=== PATIENT | male | born 1975 | race Caucasian/White ===

== ENCOUNTER → 2019-07-08 09:20 | Outpatient (CLI) | payer BC, SELFPAY ==
[2019-07-08 08:15] VITALS: BMI 32.3
[2019-07-08 11:08] LABS: Vitamin D,25 Hydroxy 29.1 ng/mL (29.95-100.01)
[2019-07-08 11:12] LABS: ALB/GLOB Ratio 0.9 RATIO (0.9-2.4); AST(SGOT) 20 U/L (15-37); Alanine Aminotransfer ALT/SGPT 36 U/L (16-61); Albumin, Serum 3.8 g/dL (3.2-5.0); Alkaline Phosphatase 117 U/L (45-117); Anion Gap 8 (5-15); BUN 10 mg/dL (7-18); BUN/Creat Ratio 9.7 RATIO (10-20); Calcium,Total 8.8 mg/dL (8.5-10.1); Chloride 101 mmol/L (98-107); Creatinine, Serum 1.03 mg/dL (0.70-1.30); EST Glomerular Filtration Rate 84 mL/min (>60); Est Glom Filt Rate - Afr Amer 102 mL/min (>60); Globulin 4.2 g/dL (2.2-4.2); Glucose 263 mg/dL (74-106); Potassium 3.8 mmol/L (3.5-5.1); Sodium Level 134 mmol/L (136-145); Thyroid Stim Hormone (TSH) 2.86 uIU/mL (0.358-3.74)
[2019-07-08 11:17] LABS: Microalbumin,Random Urine 25.9 mg/L (NO RANGE EST.); Microalbumin:Creatinine Ratio 16.5 mg/g CRE (<30 mg/g CRE)
== END ==
PROVIDERS: Family Provider Internal Medicine; PCP Internal Medicine; Referring Provider Internal Medicine Endocrinology, Diabetes & Metabolism; Visit Provider Internal Medicine Endocrinology, Diabetes & Metabolism
DX: E11.9 Type 2 diabetes mellitus without complications (principal); E55.9 Vitamin D deficiency, unspecified; E78.2 Mixed hyperlipidemia
CPT/HCPCS: 36415; 80053; 82043; 82306; 82570; 84443

== ENCOUNTER → 2020-11-18 15:07 | Outpatient (CLI) | payer BC, SELFPAY ==
[2020-06-11 09:45] VITALS: BMI 30.7
[2020-11-18 15:25] LABS: Absolute Lymphocyte Count 2.17 X10^3/uL (0.83-4.51); Absolute Neutrophil Count 5.3 X10^3/uL (2.0-7.7); Basophil# 0.03 X10^3/uL; Basophil% 0.4 % (0-1); Eosinophil# 0.26 X10^3/uL; Eosinophils% 3.1 % (0-5); Hematocrit 45.7 % (40-54); Hemoglobin 15.7 g/dL (13.0-16.5); Lymphocyte # 2.17 X10^3/ul (0.83-4.51); Lymphocyte % 25.7 % (19-41); Mean Corp Hgb Conc 34.4 g/dL (32-36); Mean Corpuscular Hgb 31.3 pg (27.0-32.0); Mean Corpuscular Volume 91.2 fL (80-94); Mean Platelet Vol. 11.3 fl (6.2-12.0); Monocyte# 0.64 X10^3/uL; Monocyte% 7.6 % (0-10); NRBC Flagged by Analyzer 0 % (0-5); Neutrophil # 5.31 X10^3/uL (2.7-7.7); Neutrophil % 62.8 % (47-70); Platelet Count 239 K/mm3 (150-450); RBC Distribution Width CV 12.6 % (11.6-14.6); Red Blood Count 5.01 M/mm3 (4.6-6.2); White Blood Count 8.4 K/mm3 (4.4-11.0)
[2020-11-18 15:36] LABS: Vitamin D,25 Hydroxy 35.5 ng/mL
[2020-11-18 15:41] LABS: ALB/GLOB Ratio 1.2 RATIO (0.9-2.4); AST(SGOT) 29 U/L (15-37); Alanine Aminotransfer ALT/SGPT 51 U/L (16-61); Alkaline Phosphatase 115 U/L (45-117); Anion Gap 5 (5-15); BUN 8 mg/dL (7-18); BUN/Creat Ratio 9.7 RATIO (10-20); CRP, High Sensitivity Cardiac 3.98 mg/L; Chloride 107 mmol/L (98-107); Cholesterol 143 mg/dL (200); Creatinine, Serum 0.83 mg/dL (0.70-1.30); EST Glomerular Filtration Rate 108 mL/min (>60); Est Glom Filt Rate - Afr Amer 130 mL/min (>60); Globulin 3.4 g/dL (2.2-4.2); Glucose 129 mg/dL (74-106); High Density Lipoprotein 36 mg/dL; Potassium 4.2 mmol/L (3.5-5.1); Protein, Total 7.4 g/dL (6.4-8.2); Sodium Level 139 mmol/L (136-145); Triglycerides 229 mg/dL; Very Low Density Lipoprotein 46 mg/dL (5-40)
== END ==
PROVIDERS: PCP Internal Medicine; Referring Provider Internal Medicine; Visit Provider Internal Medicine
DX: R79.82 Elevated C-reactive protein (CRP) (principal); E10.9 Type 1 diabetes mellitus without complications; E78.2 Mixed hyperlipidemia; E55.9 Vitamin D deficiency, unspecified
CPT/HCPCS: 80053; 80061; 82306; 83036; 85025; 86141

== ENCOUNTER → 2021-03-18 15:50 | Outpatient (CLI) | payer BC, SELFPAY | PROVIDERS: PCP Internal Medicine; Referring Provider Internal Medicine; Visit Provider Internal Medicine | DX: U07.1 COVID-19 (principal) | CPT/HCPCS: 87635; U0005; U0003 ==

== ENCOUNTER 2021-03-19 16:44 | Outpatient (CLI) | payer BC, SELFPAY ==
[2021-03-19 16:50] VITALS: BP 135/64; PULSE 92; RESP 18; TEMP 38.2; O2SAT 96; BMI 29.0
[2021-03-19] MEDS: 0.9% Normal Saline 1,000 ML 999 ML IV (17:25)
[2021-03-19] MEDS: 0.9% Saline Lock 10 ML Syringe IV (17:25)
[2021-03-19 17:56] VITALS: BP 137/65; PULSE 98; RESP 18; TEMP 38.3; O2SAT 95
[2021-03-19] MEDS: Acetaminophen 325 MG Tablet 650 MG PO (18:10)
[2021-03-19 18:21] LABS: Hematocrit 50.2 % (40-54); Hemoglobin 16.9 g/dL (13.0-16.5); Mean Corp Hgb Conc 33.7 g/dL (32-36); Mean Corpuscular Hgb 31.1 pg (27.0-32.0); Mean Corpuscular Volume 92.4 fL (80-94); Mean Platelet Vol. 11.4 fl (6.2-12.0); Platelet Count 158 K/mm3 (150-450); Red Blood Count 5.43 M/mm3 (4.6-6.2); White Blood Count 9.9 K/mm3 (4.4-11.0)
[2021-03-19 18:23] LABS: Color, Urine Yellow (Yellow); Glucose, Dipstick 1000 mg/dl (Normal); Ketone-Dipstick 15 mg/dl (Negative); Leukocyte Esterase-Dipstick Negative /ul (Negative); Nitrite-Dipstick Negative (Negative); Occult Blood-Urine 25 /ul (Negative); Protein-Dipstick 30 mg/dl (Negative); Specific Gravity, Urine 1.015 (1.002-1.030); Urine Bilirubin Dipstick Negative (Negative); Urine Clarity Clear (Clear); Urine Urobilinogen Normal (Normal)
[2021-03-19 18:53] VITALS: BP 144/55; PULSE 99; RESP 18; TEMP 38.5; O2SAT 95
[2021-03-19 19:21] LABS: ALB/GLOB Ratio 0.7 RATIO (0.9-2.4); AST(SGOT) 42 U/L (15-37); Alanine Aminotransfer ALT/SGPT 32 U/L (16-61); Albumin, Serum 3.6 g/dL (3.2-5.0); Alkaline Phosphatase 93 U/L (45-117); Anion Gap 11 (5-15); BUN 12 mg/dL (7-18); BUN/Creat Ratio 9.8 RATIO (10-20); Calcium,Total 9.4 mg/dL (8.5-10.1); Chloride 94 mmol/L (98-107); Creatinine, Serum 1.22 mg/dL (0.70-1.30); EST Glomerular Filtration Rate 69 mL/min (>60); Est Glom Filt Rate - Afr Amer 83 mL/min (>60); Estimated Creatinine Clearance 72.99 ml/min; Globulin 5.3 g/dL (2.2-4.2); Glucose 333 mg/dL (74-106); Potassium 3.6 mmol/L (3.5-5.1); Protein, Total 8.9 g/dL (6.4-8.2); Sodium Level 127 mmol/L (136-145)
== END 2021-03-19 18:57 | disposition home or self-care (01) ==
LOC: ICUOUT 16:45 → MS2 16:45
PROVIDERS: Internal Medicine; PCP Internal Medicine; Referring Provider Nurse Practitioner Acute Care; Visit Provider Nurse Practitioner Acute Care
DX: Z23 Encounter for immunization (principal); U07.1 COVID-19
CPT/HCPCS: 80053; 81002; 85027; J7030; J7050; M0245; A4216; Q0244

== ENCOUNTER → 2023-10-27 | Outpatient (CLI) | payer BC, SELFPAY ==
[2023-10-27 12:39] LABS: Cholesterol 197 mg/dL (200); High Density Lipoprotein 34 mg/dL; Triglycerides 642 mg/dL
== END | disposition home or self-care (01) ==
LOC: BIMLAB 08:53
PROVIDERS: PCP Internal Medicine; Referring Provider Internal Medicine Endocrinology, Diabetes & Metabolism; Visit Provider Internal Medicine Endocrinology, Diabetes & Metabolism
DX: E10.9 Type 1 diabetes mellitus without complications (principal); E78.2 Mixed hyperlipidemia; Z96.41 Presence of insulin pump (external) (internal)
CPT/HCPCS: 36415; 80061

== ENCOUNTER → 2025-05-06 | Outpatient (CLI) | payer BC, SELFPAY ==
--- NOTE | 2025-05-06 08:51 | NEURO_ITS ---
NCS and/or EMG Patient Report
--- NOTE | 2025-05-06 08:51 | NEURO ---
NCS and/or EMG Patient Report Ordering Doctor: Tawanna Pickard DATE OF SERVICE: 05/06/25 Clinical Summary: 49 year old male patient with symptoms of numbness in both hands. Nerve Conduction Studies Summary: Nerve conduction studies were performed in the bilateral upper extremities. The median-D2 SNAP distal latency was prolonged bilaterally. The right median-APB CMAP distal latency was prolonged. The median motor conduction velocity was reduced bilaterally in the forearm segment. Needle Examination Summary: Needle examination of the bilateral upper extremities demonstrated a higher proportion of motor unit action potentials with reduced recruitment, increased amplitude, increased duration, and polyphasia in the bilateral abductor pollicis brevis muscles. Impression: This is an abnormal study. 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 There is no electrodiagnostic evidence of right/left ulnar mononeuropathies or cervical radiculopathies. Multi Select Codes Neurology Neurology Interp Codes: 39181-48 Musc test done w/n test comp (interp) (2) and 80992-08 Nrv cndj test 9-10 studies (interp)
== END | disposition home or self-care (01) ==
LOC: PSN 06:49
PROVIDERS: PCP Internal Medicine; Referring Provider Internal Medicine; Visit Provider Internal Medicine
DX: R20.2 Paresthesia of skin (principal)
CPT/HCPCS: 95886; 95911

== ENCOUNTER 2025-06-04 06:04 | Day surgery (SDC) | payer BC, SELFPAY ==
[2025-06-04] VITALS (7 sets, daily range): BP systolic 128–146; BP diastolic 81–92; PULSE 66–85; RESP 16–18; TEMP 36.6–37; O2SAT 94–98; BMI 31.1
--- OUTSIDE RECORDS SUMMARY | 2025-06-04 06:07 | XMS RPT_ITS | CCD ---
Author Organization [facility] Care Team Providers Care Cushion Maker Hand Name Role Phone Fast, Tawanna A Unavailable [facility] Unavailable Misael Swain Unavailable Manparisk, Eun Unavailable Unavailable Carmela Henning Unavailable Unavailable Linda Dasilva Unavailable Unavailable Unavailable Unavailable SlaMarilee escamilla Unavailable Unavailable Manchak, Eun Unavailable Unavailable Esthela Briceño Unavailable Unavailable Sonia Ludwig Unavailable Kathie Harding Unavailable Unavailable Fast DO, Tawanna A Unavailable [facility] Unavailable Dr. Misael Swain DO Unavailable Manmarni COBRUN, Enu Unavailable Unavailable Unavailable Unavailable Sarah Glass Unavailable Fast DO, Tawanna A Unavailable Neeraj DO, Tawanna A Attending Unavailable Fast DO, Tawanna A Consulting Unavailable Fast DO, Tawanna A Referring Unavailable Medicine, [facility] Pr ovider JOSLYN TURCIOS Referring Unavailable THAD NANCE Attending Unavailable RADHA CAMARILLO Admitting Unavailable BETH PASTRANA Consulting Unavail able RADHA CAMARILLO Attending Unavailable JOSLYN TURCIOS Attending Unavailable JOSLYN TURCIOS Attending Unavailable Dr. Tawanna Pickard Primary Care Provider Dr. Tawanna Pickard Referring Provider Dr. Landen Evangelista Attending Provider Medicine, [facility] Pr ovider QUINTIN SHAY Attending Unavailable Fast DO, Dr. Stacy Primary Care Provider Fast DO, Dr. Stacy Referring Provider [phone] Dr. Landen Evangelista MD Attending Provider [phone] Fast, Tawanna Primary Care Unavailable Landen Evangelista Attending Unavailable Fast, Tawanna Referring Unavailable Fast, Tawanna Primary Care Unavailable Troy Gibbons Attending Unavailable Fast, Tawanna Referring Unavailable Fast, Tawanna Primary Care Unavailable Bora, Trang Attending Unavailable Fast, Tawanna Consulting Unavailable Fast, Tawanna Referring Unavailable Fast, Tawanna Primary Care Unavailable Landen Evangelista Attending Unavailable Fast, Tawanna Referring Unavailable Fast, Tawanna Primary Care Unavailable Fast, Tawanna Attending Unavailable Fast, Tawanna Referring Unavailable Troy Gibbons Attending Unavailable Fast, Tawanna Primary Care Unavailable Troy Gibbons Attending Unavailable Fast, Tawanna Primary Care Unavailable Medications Current Medications Medication Drug Class(es) Dates Sig (Normalized) Sig (Original) Blood-Glucose Sensor (Dexcom G7 Sensor) device (3 sources) Start: 01-13-2025 Blood-Glucose Sensor (Dexcom G7 Sensor) device Active 0 .Route 9 January 13, 2025 12:45pm Type 1 diabetes mellitus Type 1 diabetes mellitus without complications 1 sensor q 10 days Start: 09-19-2024 End: 01-13-2025 Blood-Glucose Sensor (Dexcom G7 Sensor) device Discontinued 0 .Route 9 September 19, 2024 4:29pm January 13, 2025 12:45pm Type 1 diabetes mellitus Type 1 diabetes mellitus without complications 1 sensor q 10 days Start: 02-19-2024 End: 09-19-2024 Blood-Glucose Sensor (Dexcom G7 Sensor) device Discontinued 0 .Route 9 February 19, 2024 12:00am September 19, 2024 4:29pm Type 1 diabetes mellitus Type 1 diabetes mellitus without complications 1 sensor q 10 days cholecalciferol 0.125 mg disintegrating oral tablet (20 sources) Vitamin D Start: 06-14-2019 take 1 tablet by mouth once daily Cholecalciferol (Vitamin D3) 5,000 unit tablet,disintegrating Active 5000 U PO DAILY 0 June 14, 2019 1:00am Start: 08-27-2018 take 1 capsule by [facility] once daily Vitamin D3 5000 UNIT Oral Capsule 1 (one) Capsule qd for 0 days Quantity: 30 {Capsule} Refills: 3 Ordered: 27-Aug-2018 Fast DO, Tawanna A Fast DO, Tawanna A Start : 27-Aug-2018 Active DEXCOM G6 SENSOR anat (6 sources) Start: 01-17-2023 DEXCOM G6 SENS OR anat as directed. 01/17/2023 Active Start: 01-17-2023 DEXCOM G6 SENS OR anat as directed. 0 01/17/2023 Active Comment on above: as directed. DEXCOM G6 TRANSMITTER anat (6 sources) Start: 02-09-2023 DEXCOM G6 TRANSMITTER anat as directed. 02/09/2023 Active Start: 02-09-2023 DEXCOM G6 RENE SMITTER anat as directed. 0 02/09/2023 Active Comment on above: as directed. 3 ml insulin lispro 200 unt/ml pen injector (20 sources) Insulin Analog Start: 08-30-2024 Insulin Lispro (Humalog Kwikpen Insulin) 200 unit/mL (3 mL) insulin pen Active 200 U SC daily 30 August 30, 2024 1:00am Start: 11-20-2012 End: 10-14-2013 HUMALOG KWIKPEN, 100UNIT/ML (Subcutaneous Solution) 1 Solution uad for 0 days Quantity: 1 {Solution} Refills: 0 Ordered: 14-Oct-2013 Eun Arrington CMA Start : 20-Nov-2012 End : 14-Oct-2013 Inactive Start: 11-20-2012 End: 10-14-2013 HUMALOG KWIKPEN, 100UNIT/ML (Subcutaneous Solution) 1 Solution uad for 0 days Quantity: 1 {Solution} Refills: 0 Ordered: 14-Oct-2013 Eun Arrington Start : 20-Nov-2012 End : 14-Oct-2013 Inactive Insulin Process Development Manager Cart,Aut,G6/7,Cntr (Omnipod 5 G6-G7 Intro Kt(Gen5)) cartridge (1 source) Start: 11-19-2024 Insulin Process Development Manager Cart,Aut,G6/7,Cntr (Omnipod 5 G6-G7 Intro Kt(Gen5)) cartridge Active 0 .Route 1 November 19, 2024 12:00am As directed Insulin Pump Cart,Auto,Bt,G6/7 (Omnipod 5 G6-G7 Pods (Gen 5)) cartridge (1 source) Start: 12-19-2024 Insulin Pump Cart,Auto,Bt,G6/7 (Omnipod 5 G6-G7 Pods (Gen 5)) cartridge Active 0 .Route 30 December 19, 2024 12:00am change every 3 days levETIRAcetam 500 mg oral tablet (5 sources) Start: 02-20-2023 End: 03-06-2023 take 1 tablet by mouth twice daily levETIRAcetam (KEPPRA) 500 mg tablet Take 1 tablet by mouth twice daily for 14 days. 28 tablet 02/20/2023 Active Comment on above: Take 1 tablet by kg th twice daily for 14 days. ondansetron 4 mg oral tablet (6 sources) Serotonin-3 Receptor Antagonist Start: 02-20-2023 take 1 tablet by mouth every eight hours as needed ondansetron (ZOFRAN) 4 mg tablet Take 1 tablet by mouth every 8 hours as needed for nausea/vomiting. 15 tablet 02/20/2023 Active Comment on above: Take 1 tablet by kg th every 8 hours as needed for nausea/vomiting. rosuvastatin calcium 20 mg oral tablet (20 sources) HMG-CoA Reductase Inhibitor Start: 04-19-2024 take 2 tablets by mouth once daily Rosuvastatin 20 mg tablet Active 40 mg PO DAILY April 19, 2024 8:06am Start: 06-14-2019 End: 04-19-2024 take 1 tablet by mouth once daily Rosuvastatin 20 mg tablet Discontinued 20 mg PO DAILY 90 3 April 21, 2023 8:24am April 19, 2024 8:06am Start: 05-18-2012 End: 10-17-2012 take 1 tablet by mouth once daily CRESTOR, 20MG (Oral Tablet) 1 Tablet daily for 0 days Quantity: 30 {Tablet} Refills: 3 Ordered: 17-Oct-2012 Ava Tubbs LPN Start : 18-May-2012 End : 17-Oct-2012 Inactive Tirzepatide (Mounjaro) 5 mg/ 0.5 mL pen injector (1 source) Start: 08-30-2024 Tirzepatide (M ounjaro) 5 mg/0.5 mL pen injector Active 5 mg SC EVERY WEEK August 30, 2024 1:00am ubidecarenone 10 mg oral cap dana (2 sources) Start: 11-19-2020 Coenzyme Q10 ( Co Q-10) 10 mg capsule Active 10 mg PO ONCE November 19, 2020 12:00am Completed/Discontinued Medications Medication Drug Class(es) Dates Sig (Normalized) Sig (Original) acetaminophen 300 mg / butalbital 50 mg / caffeine 40 mg oral capsule (5 sources) Barbiturate, Central Nervous System Stimulant, Methylxanthine Start: 02-24-2023 take 1 capsule by mouth every four hours as needed Fioricet 50-300-40 mg oral capsule 1 (one) capsule q4 hours prn for 0 days Quantity: 30 {Capsule} Refills: 0 Ordered: 24-Feb-2023 Fast DO, Tawanna A Fast DO, Tawanna A Start : 24-Feb-2023 Active Comments: ooars reviewed Start: 02-20-2023 End: 02-25-2023 take 1 tablet by mouth every six hours as needed acetaminophen 325 mg-caffeine 40 mg-butalbital 50 mg (FIORICET) per tablet Take 1 tablet by mouth every 6 hours as needed for headache for up to 5 days. 20 tablet 0 02/20/2023 02/25/2023 Active Comment on above: Take 1 tablet by kg th every 6 hours as needed for headache for up to 5 days. juan reviewed amoxicillin 875 mg / clavulanate 125 mg oral tablet (10 sources) Penicillin-class Antibacterial Start: 2 End: 2 take 1 tablet by mouth twice daily Amoxicillin-Pot Clavulanate 875-125 MG Oral Tablet 1 (one) Tablet bid for 0 days Quantity: 14 {Tablet} Refills: 0 Ordered: 14-Jan-2022 Eun Arrington CMA Start : 10-Sep-2021 End : 14-Jan-2022 Inactive atorvastatin 40 mg oral tablet (20 sources) HMG-CoA Reductase Inhibitor Start: 9 End: 0 take 1 tablet by mouth once daily Lipitor 40 MG Oral Tablet 1 Tablet daily for 0 days Quantity: 30 {Tablet} Refills: 6 Ordered: 7-Feb-2020 Esthela Briceño RN Start : 13-May-2019 End : 16-Aug-2019 Inactive Start: 09-10-2013 take 1 tablet by kg th once daily LIPITOR, 40MG (Oral Tablet) 1 Tablet daily for 0 days Quantity: 30 {Tablet} Refills: 6 Ordered: 10-Sep-2013 Elvia Cleary CNP Start : 10-Sep-2013 Active Start: 05-18-2012 End: 05-18-2012 take 1 tablet by mouth once daily LIPITOR, 20MG (Oral Tablet) 1 Tablet daily for 0 days Quantity: 90 {Tablet} Refills: 0 Ordered: 18-May-2012 Elvia Cleary Start : 18-May-2012 End : 18-May-2012 Inactive azithromycin 250 mg oral tablet (20 sources) Macrolide Antimicrobial Start: 03-18-2021 End: 05-17-2021 Azithromycin 250 MG Oral Tablet uad Tablet 2 today then 1 a day until gone for 0 days Quantity: 8 {Tablet} Refills: 0 Ordered: 17-May-2021 Fast DO, Tawanna A Fast DO, Tawanna A Start : 18-Mar-2021 End : 17-May-2021 Inactive Start: 08-15-2011 End: 09-13-2011 ZITHROMAX Z-STEPH, 250MG (Oral Tablet) 1 Tablet uad for 0 days Quantity: 1 {Package(s)} Refills: 0 Ordered: 13-Sep-2011 Ava Tubbs LPN Start : 15-Aug-2011 End : 13-Sep-2011 Inactive betamethasone 3 mg/ml / betamethasone acetate 3 mg/ml injectable suspension (2 sources) Corticosteroid Start: 12-06-2024 End: 12-06-2024 betamethasone acetate-betamethasone sodium phosphate 3 mg injection (CELESTONE) Start: 12-06-2024 End: 12-06-2024 3 mg, Injection - FOR ORTHO USE ONLY, ONCE, 1 dose, Starting on Mon12/06/24 at 0952, Until Mon12/06/24 at 0952 Blood-Glucose Sensor (Dexcom G6 Sensor) device (15 sources) Start: 02-09-2024 End: 02-19-2024 Blood-Glucose Sensor (Dexcom G6 Sensor) device Discontinued 0 .ROUTE .MEDSUPPLY 9 February 09, 2024 2:24pm February 19, 2024 9:49am Type 1 diabetes mellitus Type 1 diabetes mellitus without complications As directed Start: 07-19-2023 End: 02-09-2024 Blood-Glucose Sensor (Dexcom G6 Sensor) device Discontinued 0 .ROUTE .MEDSUPPLY 9 July 19, 2023 9:45am February 09, 2024 2:25pm Type 1 diabetes mellitus Type 1 diabetes mellitus without complications As directed Start: 07-19-2023 Blood-Glucose Sensor (Dexcom G6 Sensor) device Active 0 .ROUTE .MEDSUPPLY July 19, 2023 9:45am As directed Start: 01-16-2023 End: 07-19-2023 Blood-Glucose Sensor (Dexcom G6 Sensor) device Discontinued 0 .ROUTE .MEDSUPPLY 9 January 16, 2023 4:07pm July 19, 2023 9:45am Type 1 diabetes mellitus Type 1 diabetes mellitus without complications As directed Start: 01-16-2023 End: 07-19-2023 Blood-Glucose Sensor (Dexcom G6 Sensor) device Discontinued 0 .ROUTE .MEDSUPPLY January 16, 2023 4:07pm July 19, 2023 9:45am As directed Start: 06-24-2022 End: 01-16-2023 Blood-Glucose Sensor (Dexcom G6 Sensor) device Discontinued 0 .ROUTE .MEDSUPPLY 9 June 24, 2022 10:07am January 16, 2023 4:07pm Type 1 diabetes mellitus Type 1 diabetes mellitus without complications As directed Start: 06-24-2022 End: 01-16-2023 Blood-Glucose Sensor (Dexcom G6 Sensor) device Discontinued 0 .ROUTE .MEDSUPPLY June 24, 2022 10:07am January 16, 2023 4:07pm As directed Start: 12-24-2021 End: 06-24-2022 Blood-Glucose Sensor (Dexcom G6 Sensor) device Discontinued 0 .ROUTE .MEDSUPPLY 9 December 24, 2021 1:10pm June 24, 2022 10:07am Type 1 diabetes mellitus Type 1 diabetes mellitus without complications As directed Start: 12-24-2021 End: 06-24-2022 Blood-Glucose Sensor (Dexcom G6 Sensor) device Discontinued 0 .ROUTE .MEDSUPPLY 9 December 24, 2021 1:10pm June 24, 2022 10:07am As directed Start: 11-17-2021 End: 12-24-2021 Blood-Glucose Sensor (Dexcom G6 Sensor) device Discontinued 0 .ROUTE .MEDSUPPLY 3 3 November 17, 2021 1:04pm December 24, 2021 1:10pm Type 1 diabetes mellitus Type 1 diabetes mellitus without complications As directed Start: 11-17-2021 End: 12-24-2021 Blood-Glucose Sensor (Dexcom G6 Sensor) device Discontinued 0 .ROUTE .MEDSUPPLY 3 November 17, 2021 1:04pm December 24, 2021 1:10pm As directed Start: 01-04-2021 End: 11-17-2021 Blood-Glucose Sensor (Dexcom G6 Sensor) device Discontinued 0 .ROUTE .MEDSUPPLY 9 January 04, 2021 10:06am November 17, 2021 1:04pm As directed Start: 01-04-2021 End: 11-17-2021 Blood-Glucose Sensor (Dexcom G6 Sensor) device Discontinued 0 .ROUTE .MEDSUPPLY 9 January 04, 2021 10:06am November 17, 2021 1:04pm As directed Start: 02-06-2020 End: 01-04-2021 Blood-Glucose Sensor (Dexcom G6 Sensor) device Discontinued 0 .ROUTE .MEDSUPPLY 9 3 February 06, 2020 12:00am January 04, 2021 10:06am As directed Start: 02-06-2020 End: 01-04-2021 Blood-Glucose Sensor (Dexcom G6 Sensor) device Discontinued 0 .ROUTE .MEDSUPPLY 9 February 06, 2020 12:00am January 04, 2021 10:06am As directed Blood-Glucose Transmitter (Dexcom G6 Transmitter) device (9 sources) Start: 02-09-2024 End: 08-30-2024 Blood-Glucose Transmitter (Dexcom G6 Transmitter) device Discontinued 0 .ROUTE .MEDSUPPLY 1 February 09, 2024 2:24pm August 30, 2024 10:35am As directed Start: 02-08-2023 End: 02-09-2024 Blood-Glucose Transmitter (D excom G6 Transmitter) device Discontinued 0 .ROUTE .MEDSUPPLY 1 February 08, 2023 4:37pm February 09, 2024 2:25pm As directed Start: 02-08-2023 Blood-Glucose Transmitter (Dexcom G6 Transmitter) device Active 0 .ROUTE .MEDSUPPLY 1 February 08, 2023 4:37pm As directed Start: 01-11-2022 End: 02-08-2023 Blood-Glucose Transmitter (D excom G6 Transmitter) device Discontinued 0 .ROUTE .MEDSUPPLY 1 3 January 11, 2022 9:14am February 08, 2023 4:37pm As directed Start: 01-11-2022 End: 02-08-2023 Blood-Glucose Transmitter (D excom G6 Transmitter) device Discontinued 0 .ROUTE .MEDSUPPLY 1 January 11, 2022 9:14am February 08, 2023 4:37pm As directed Start: 01-04-2021 End: 01-11-2022 Blood-Glucose Transmitter (D excom G6 Transmitter) device Discontinued 0 .ROUTE .MEDSUPPLY 1 3 January 04, 2021 10:06am January 11, 2022 9:14am As directed Start: 01-04-2021 End: 01-11-2022 Blood-Glucose Transmitter (D excom G6 Transmitter) device Discontinued 0 .ROUTE .MEDSUPPLY 1 January 04, 2021 10:06am January 11, 2022 9:14am As directed Start: 02-06-2020 End: 01-04-2021 Blood-Glucose Transmitter (D excom G6 Transmitter) device Discontinued 0 .ROUTE .MEDSUPPLY 1 3 February 06, 2020 12:00am January 04, 2021 10:06am As directed Start: 02-06-2020 End: 01-04-2021 Blood-Glucose Transmitter (D excom G6 Transmitter) device Discontinued 0 .ROUTE .MEDSUPPLY 1 February 06, 2020 12:00am January 04, 2021 10:06am As directed desoximetasone 2.5 mg/ml topical cream (20 sources) Corticosteroid Start: 08-29-2011 End: 09-13-2011 TOPICORT, 0.25% (External Cream) 1 Cream bid for 0 days Quantity: 1 {Cream} Refills: 0 Ordered: 13-Sep-2011 Ava Tubbs LPN Start : 29-Aug-2011 End : 13-Sep-2011 Inactive dexamethasone 6 mg oral tablet (12 sources) Corticosteroid Start: 03-23-2021 End: 05-17-2021 take 1 tablet by mouth once daily Dexamethasone 6 MG Oral Tablet 1 (one) Tablet qd for 0 days Quantity: 10 {Tablet} Refills: 0 Ordered: 17-May-2021 Fast DO, Tawanna A Fast DO, Tawanna A Start : 23-Mar-2021 End : 17-May-2021 Inactive ergocalciferol 1.25 mg oral capsule (20 sources) Provitamin D2 Compound Start: 11-27-2012 End: 08-27-2018 take 1 capsule by mouth every week Ergocalciferol 35623 UNIT Oral Capsule 1 Capsule q week for 0 days Quantity: 12 {Capsule} Refills: 1 Ordered: 27-Aug-2018 Fast DO, Tawanna A Fast DO, Tawanna A Start : 27-Nov-2012 End : 27-Aug-2018 Inactive fenofibrate 145 mg oral tablet (20 sources) Peroxisome Proliferator Receptor alpha Agonist Start: 08-27-2018 End: 08-27-2018 take 1 tablet by mouth once daily Fenofibrate 145 MG Oral Tablet 1 (one) Tablet qd for 0 days Quantity: 30 {Tablet} Refills: 3 Ordered: 27-Aug-2018 Fast DO, Tawanna A Fast DO, Tawanna A Start : 27-Aug-2018 End : 27-Aug-2018 Discontinued Start: 11-27-2012 End: 10-14-2013 take 1 capsule by mouth once daily at bedtime TRILIPIX, 135MG (Oral Capsule Delayed Release) [address] qd at hs for 0 days Quantity: 30 {Capsule_DR} Refills: 3 Ordered: 14-Oct-2013 Eun Arrington CMA Start : 27-Nov-2012 End : 14-Oct-2013 Inactive Start: 06-20-2012 End: 10-17-2012 take 1 tablet by mouth once daily TRICOR, 145MG (Oral Tablet) 1 Tablet daily for 0 days Quantity: 30 {Tablet} Refills: 11 Ordered: 17-Oct-2012 Ava Tubbs LPN Start : 20-Jun-2012 End : 17-Oct-2012 Inactive Start: 08-23-2011 End: 09-13-2011 take 1 tablet by mouth once daily FENOFIBRATE, 160MG (Oral Tablet) 1 Tablet daily for 0 days Quantity: 30 {Tablet} Refills: 3 Ordered: 13-Sep-2011 Ava Tubbs LPN Start : 23-Aug-2011 End : 13-Sep-2011 Inactive insulin detemir 100 unt/ml injectable solution (20 sources) Insulin Analog Start: 01-04-2013 End: 08-13-2018 LEVEMIR FLEXPEN, 100UNIT/ML (Subcutaneous Solution) 10 -15 Solution q am for 0 days Quantity: 30 {Solution} Refills: 0 Ordered: 04-Jan-2013 Celestinomarni COBURN Eun Start : 04-Jan-2013 End : 13-Aug-2018 Discontinued Comments: This order discontinued per [facility]. Start: 01-04-2013 End: 08-13-2018 LEVEMIR FLEXPEN, 100UNIT/ML (Subcutaneous Solution) 10 -15 Solution q am for 0 days Quantity: 30 {Solution} Refills: 0 Ordered: 04-Jan-2013 Eun Arrington Start : 04-Jan-2013 End : 13-Aug-2018 Discontinued Comments: This order discontinued per [facility]. Comment on above: This order discontin ued per [facility]. Insulin Pump Cart,Auto,Bt-Cntr (Omnipod 5 G6 Intro Kit (Gen 5)) cartridge (2 sources) Start: 12-12-2022 End: 04-21-2023 Insulin Pump Cart,Auto,Bt-Cntr (Omnipod 5 G6 Intro Kit (Gen 5)) cartridge Discontinued 0 .Route 1 0 December 12, 2022 12:00am April 21, 2023 8:24am As directed Start: 12-12-2022 End: 04-21-2023 Insulin Pump Cart,Auto,Bt-Cn tr (Omnipod 5 G6 Intro Kit (Gen 5)) cartridge Discontinued 0 .Route 1 December 12, 2022 12:00am April 21, 2023 8:24am As directed Insulin Pump Cart,Automated, Bt (Omnipod 5 G6 Pods (Gen 5)) cartridge (2 sources) Start: 12-12-2022 End: 10-27-2023 Insulin Pump Cart,Automated, Bt (Omnipod 5 G6 Pods (Gen 5)) cartridge Discontinued 0 .Route 15 6 December 12, 2022 12:00am October 27, 2023 8:22am change every 2 days Start: 12-12-2022 End: 10-27-2023 Insulin Pump Cart,Automated, Bt (Omnipod 5 G6 Pods (Gen 5)) cartridge Discontinued 0 .Route 15 December 12, 2022 12:00am October 27, 2023 8:22am change every 2 days insulin aspart, human 100 unt/ml injectable solution (20 sources) Insulin Analog Start: 02-19-2025 End: 02-28-2025 Insulin Aspart U-100 (Novolog U-100 Insulin Aspart) 100 unit/mL solution Discontinued 0 SC .continuous 50 6 February 19, 2025 10:16am February 28, 2025 8:21am uses up to 160U qd via pump subcut .continuous; Start: 04-19-2024 End: 02-19-2025 Insulin Aspart U-100 (Novolo g U-100 Insulin Aspart) 100 unit/mL solution Discontinued 0 SC .continuous 50 6 May 06, 2024 9:26am February 19, 2025 10:16am uses up to 160U qd via pump subcut .continuous; Start: 10-27-2023 End: 04-19-2024 Insulin Aspart U-100 (Novolo g U-100 Insulin Aspart) 100 unit/mL solution Discontinued 0 SC .continuous 120 3 October 27, 2023 8:23am April 19, 2024 8:52am uses up to 130U qd via pump subcut .continuous; Start: 04-21-2023 End: 10-27-2023 Insulin Aspart U-100 (Novolo g U-100 Insulin Aspart) 100 unit/mL solution Discontinued 0 SC .continuous 120 3 June 29, 2023 10:45am October 27, 2023 8:23am uses up to 130U qd via pump subcut .continuous; Start: 02-13-2023 inject 130 [IU] by s ubcutaneous injection once daily NOVOLOG U-100 INSULIN ASPART 100 unit/mL USE UP TO 130 UNITS DAILY SUBCUTANEOUSLY VIA INSULIN PUMP 02/13/2023 Active Start: 11-19-2021 End: 04-21-2023 Insulin Aspart U-100 (Novolo g U-100 Insulin Aspart) 100 unit/mL solution Discontinued 0 SC .continuous 120 3 June 24, 2022 10:06am April 21, 2023 8:24am uses up to 130U qd via pump subcut .continuous; Start: 01-15-2021 End: 11-19-2021 Insulin Aspart U-100 (Novolo g U-100 Insulin Aspart) 100 unit/mL solution Discontinued 0 SC .continuous 120 3 January 15, 2021 8:43am November 19, 2021 9:33am uses up to 130U qd via pump subcut .continuous; Start: 01-01-2020 End: 01-15-2021 Insulin Aspart U-100 (Novolo g U-100 Insulin Aspart) 100 unit/mL solution Discontinued 0 SC .continuous 120 3 May 19, 2020 4:17pm January 15, 2021 8:44am uses up to 130U qd via pump subcut .continuous; Start: 08-16-2019 inject 1 [IU] by sub cutaneous injection three times daily before mealtime NovoLOG 100 UNIT/ML Subcutaneous Solution 1 (one) Unit SSI tid ac - 100 units daily for 0 days Quantity: 1 {Vial} Refills: 3 Ordered: 16-Aug-2019 Fast DO, Tawanna A Fast DO, Tawanna A Start : 16-Aug-2019 Active Comments: SSI per Landen Evangelista Start: 07-11-2019 End: 01-01-2020 Insulin Aspart U-100 (Novolo g U-100 Insulin Aspart) 100 unit/mL solution Discontinued 130 U SC .continuous 90 1 October 07, 2019 9:05am January 01, 2020 8:13am Start: 08-27-2018 NovoLOG 100 UN IT/ML Subcutaneous Solution 1 (one) Unit uad for 0 days Quantity: 1 {Vial} Refills: 3 Ordered: 27-Aug-2018 Fast DO, Tawanna A Fast DO, Tawanna A Start : 27-Aug-2018 Active Start: 10-14-2013 End: 08-13-2018 NOVOLOG FLEXPEN, 100UNIT/ML (Subcutaneous Solution) 1 (one) Solution uad for 0 days Quantity: 1 {Package} Refills: 0 Ordered: 13-Aug-2018 Elvia Cleary Start : 14-Oct-2013 End : 13-Aug-2018 Discontinued Comments: This order discontinued per [facility]. Start: 10-14-2013 End: 08-13-2018 NOVOLOG FLEXPEN, 100UNIT/ML (Subcutaneous Solution) 1 (one) Solution uad for 0 days Quantity: 1 {Package} Refills: 0 Ordered: 13-Aug-2018 Elvia Cleary Start : 14-Oct-2013 End : 13-Aug-2018 Discontinued Comments: This order discontinued per [facility]. Comment on above: This order discontin ued per [facility]. SSI per Landen Evangelista USE UP TO 130 UNITS DAILY SUBCUTANEOUSLY VIA INSULIN PUMP levoFLOXacin 500 mg oral tablet (20 sources) Quinolone Antimicrobial Start: 7 End: 9 take 1 tablet by mouth once daily Levaquin 500 MG Oral Tablet 1 (one) Tablet daily for 0 days Quantity: 7 {Tablet} Refills: 0 Ordered: 27-Aug-2018 Eun Arrington CMA Start : 14-Feb-2017 End : 27-Aug-2018 Inactive 10 ml lidocaine hydrochloride 10 mg/ml injection (2 sources) Antiarrhythmic, Amide Local Anesthetic Start: 5 End: lidocaine (PF) 10 mg/mL (1 %) 0.5 mL injection (XYLOCAINE) Start: 12-06-2024 End: 12-06-2024 0.5 mL, Injection - FOR ORTH O USE ONLY, ONCE, 1 dose, Starting on Mon12/06/24 at 0952, Until Mon12/06/24 at 0952 linagliptin 5 mg oral tablet (20 sources) Dipeptidyl Peptidase 4 Inhibitor Start: 11-20-2012 End: 10-14-2013 take 1 tablet by mouth once daily TRADJENTA, 5MG (Oral Tablet) 1 Tablet qd int he morning for 0 days Quantity: 30 {Tablet} Refills: 3 Ordered: 14-Oct-2013 Eun Arrington CMA Start : 20-Nov-2012 End : 14-Oct-2013 Inactive lisinopril 2.5 mg oral tablet (20 sources) Angiotensin Converting Enzyme Inhibitor Start: 03-26-2019 End: 05-13-2019 take 1 tablet by mouth once daily Lisinopril 2.5 MG Oral Tablet 1 (one) Tablet qd for 0 days Quantity: 30 {Tablet} Refills: 1 Ordered: 13-May-2019 Marilee Hairston LPN Start : 26-Mar-2019 End : 13-May-2019 Inactive Start: 12-07-2018 take 1 tablet by kg th once daily Lisinopril 2.5 MG Oral Tablet 1 (one) Tablet qd for 0 days Quantity: 30 {Tablet} Refills: 3 Ordered: 07-Dec-2018 Fast DO, Tawanna A Fast DO, Tawanna A Start : 07-Dec-2018 Active metFORMIN hydrochloride 500 mg oral tablet (20 sources) Biguanide Start: 12-07-2018 End: 05-13-2019 take 1 tablet by mouth once daily metFORMIN HCl 500 MG Oral Tablet 1 (one) Tablet qd for 0 days Quantity: 30 {Tablet} Refills: 3 Ordered: 13-May-2019 Marilee Hairston LPN Start : 07-Dec-2018 End : 13-May-2019 Inactive Start: 01-25-2013 End: 10-14-2013 METFORMIN HCL ER, 500MG (Ora l Tablet Extended Release 24 Hour) 2 (two) Tablet ER 24HR bid for 0 days Quantity: 120 {Tablet_ER_24HR} Refills: 3 Ordered: 14-Oct-2013 Eun Arrington CMA Start : 25-Jan-2013 End : 14-Oct-2013 Inactive 24 hr metFORMIN hydrochloride 1000 mg / sAXagliptin 2.5 mg extended release oral tablet (20 sources) Biguanide, Dipeptidyl Peptidase 4 Inhibitor Start: 10-17-2012 End: 11-10-2012 take 1 tablet by mouth every twenty-four hours at dinner KOMBIGLYZE XR, 2.5-1000MG (Oral Tablet Extended Release 24 Hour) 1 Tablet ER 24HR with evening meal for 24 days Refills: 0 Ordered: 20-Nov-2012 Shelleyrory Elvia Start : 17-Oct-2012 End : 10-Nov-2012 Inactive predniSONE 10 mg oral tablet (20 sources) Start: 10-15-2019 End: 12-09-2019 predniSONE 10 MG Oral Tablet 3 (three) Tablet daily for 10 days for 0 days Quantity: 30 {Tablet} Refills: 0 Ordered: 09-Dec-2019 Esthela Briceño RN Start : 15-Oct-2019 End : 09-Dec-2019 Inactive Comments: take with food in am Start: 02-14-2017 End: 08-27-2018 take 3 tablets by mouth once daily, then take 2 tablets by mouth, then take 1 tablet by mouth at mealtime PredniSONE 10 MG Oral Tablet 1 (one) Tablet daily, TAD for 0 days Quantity: 18 {Tablet} Refills: 0 Ordered: 27-Aug-2018 Eun Arrington CMA Start : 14-Feb-2017 End : 27-Aug-2018 Inactive Comments: 3pills [id number], 2 pills po x3days, 1 po x3days with food in the amverbally called in-[facility] 02/13/17 Comment on above: 3pills [id number], 2 p ills po x3days, 1 po x3days with food in the amverbally called in-[facility] 02/13/17 take with food in am promethazine hydrochloride 25 mg oral tablet (12 sources) Phenothiazine Start: 03-18-20 End: 05-17-20 take 1 tablet by mouth every six hours as needed Promethazine HCl 25 MG Oral Tablet 1 (one) Tablet po q 6 hours prn for 0 days Quantity: 20 {Tablet} Refills: 0 Ordered: 17-May-2021 Fast DO, Tawanna A Fast DO, Tawanna A Start : 18-Mar-2021 End : 17-May-2021 Inactive Rybelsus 14 MG Oral Tablet (8 sources) Start: 04-07-20 20 take 1 tablet by mouth once daily Rybelsus 14 MG Oral Tablet 1 (one) Tablet qd for 30 days Quantity: 30 {Tablet} Refills: 3 Ordered: 07-Apr-2020 Fast DO, Tawanna A Fast DO, Tawanna A Start : 07-Apr-2020 Active semaglutide 3 mg oral tablet (20 sources) Start: 07-13-19 End: 10-29-19 23 take 1 tablet by mouth once daily Rybelsus 3 mg oral tablet 1 (one) tablet qd for 0 days Quantity: 90 {Tablet} Refills: 0 Ordered: 28-Oct-2022 Fast DO, Tawanna A Fast DO, Tawanna A Start : 13-Jul-2022 End : 28-Oct-2022 Inactive Start: 02-06-2020 End: 12-12-2022 take 1 tablet by mouth once daily Semaglutide (Rybelsus) 14 mg tablet Discontinued 14 mg PO DAILY 90 3 January 15, 2021 8:43am May 21, 2021 10:50am Start: 08-19-2019 End: 02-06-2020 take 1 tablet by mouth once daily Semaglutide (Rybelsus) 7 mg tablet Discontinued 7 mg PO DAILY 90 1 January 17, 2020 1:01pm February 06, 2020 9:43am Start: 07-08-2019 End: 08-19-2019 take 1 tablet by mouth once daily Semaglutide (Rybelsus) 3 mg tablet Discontinued 3 mg PO DAILY 30 0 July 08, 2019 1:00am August 19, 2019 11:50am Semaglutide (Rybelsus) 7 mg tablet (1 source) Start: 04-19-2024 End: 08-30-2024 take 1 tablet by mouth once daily Semaglutide (Rybelsus) 7 mg tablet Discontinued 7 mg PO daily 30 3 April 19, 2024 12:00am August 30, 2024 10:34am Problems Active Problems Problem Classification Problem Date Documented Date Episodic/Chronic Acute cerebrovascular disease (9 sources) Cerebral hemorrhage; Translations: [Nontraumatic intracerebral hemorrhage, unspecified] Onset: 02-20-2023 02-21-2023 Chronic Administrative/social admission (4 sources) Pneumococcal vaccination given; Translations: [Pneumococcal vaccination given] 08-27-2018 Episodic Allergic reactions (20 sources) Contact dermatitis due to poison omar; Translations: [Poison omar] 12-09-2019 Episodic Blindness and vision defects (20 sources) Blurring of visual image; Translations: [Diplopia] Resolved: 11-27-2012 12-07-2018 Episodic Coronary atherosclerosis and other heart disease (20 sources) Coronary atherosclerosis and other heart disease Diabetes mellitus with complications (1 source) Type 1 diabetes mellitus with hyperglycemia; Translations: [Type 1 diabetes mellitus with hyperglycemia] Onset: 02-28-2025 Chronic Diabetes mellitus without complication (20 sources) Diabetes mellitus; Translations: [Type 1 diabetes mellitus maturity onset] Onset: 02-20-2023 08-27-2018 Chronic Comment on above: he seems to have ins ulin resistance but per his endrocine he is type 1- he is using alot of insulin and definitley has metabolic syndrome- his trigs really high he didnt want to take the fenofibrate and metformin gave him diarrhea and bad gi upset- we talked alot about diet and ex andpotentially see a recycle worker- now seeing Landen Evangelista MD and has improving control- again discussed diet and ex in detail last a1c was 7 we talked about destini inhibitor as standard of care he will talk with his dm about it- set up recycle worker encourage compliance with diet and ex has had eye exam- se adelita Evangelista this week sugars up we discuss diet and ex- he following his pump iwth endo improved control dis cussed continue work on diet and ex working on control d iscussed trying lower dose rybelsus to see if making significnat difference or not due to cost- discussed diet and ex Diabetes mellitus without complication (20 sources) Hyperglycemia; Translations: [Hyperglycemia] 08-27-2018 Episodic Comment on above: 10units Humalog c001 [id number] .2014 given to patient in L arm sc Megan5 units given again at 355pm Esthela Diabetes mellitus without complication (20 sources) Diabetes mellitus without complication Disorders of lipid metabolism (20 sources) Mixed hyperlipidemia; Translations: [Mixed hyperlipidemia] Onset: 02-20-2023 12-07-2018 Chronic Comment on above: he must get trigs do wn he is doing alot of fast food because of work and his life style we talked about food prep on weekneds to help out cut back on processe d carbs more exercise - take statin routinely great control - synchronizer bethanie stable-continue present regimen get labs he seems to be tolerated statin improved chronic stable-romario nue present regimen encourage compliance with meds low fat/chol animal products / exercise discussed trigs too high cut c arbs more ex- continuestatin Fluid and electrolyte disorders (18 sources) Hyponatremia; Translations: [Low sodium levels] Resolved: 05-17-2021 05-17-2021 Episodic Immunizations and screening for infectious disease (20 sources) Need for prophylactic vaccination and inoculation against influenza; Translations: [Need for prophylactic vaccination and inoculation against nolxfkyopa-nohfbnh-kn rtussis, combined [DTP] [DTaP]] Resolved: 11-27-2012 11-27-2012 Episodic Intracranial injury (11 sources) Concussion injury of body structure; Translations: [Concussion] Onset: 02-19-2023 02-24-2023 Episodic Malaise and fatigue (16 sources) Fatigue; Translations: [Fatigue] 07-13-2022 Episodic Comment on above: BETTER Nausea and vomiting (20 sources) Vomiting; Translations: [Vomiting] Resolved: 05-17-2021 05-17-2021 Episodic Nutritional deficiencies (20 sources) Vitamin D deficiency, unspecified; Translations: [Vitamin D deficiency] 09-06-2018 Chronic Comment on above: encourage compliance discuss incrrease vi tamin d to 4000 a day chronic stable-romario nue present regimen Other and unspecified benign neoplasm (18 sources) Dysplastic nevus of skin; Translations: [Atypical nevus] Resolved: 09-10-2021 05-17-2021 Episodic Other liver diseases (20 sources) Alkaline phosphatase raised; Translations: [Elevated alkaline phosphatase level] 09-06-2018 Episodic Other lower respiratory disease (20 sources) Cough; Translations: [Cough] Resolved: 05-17-2021 05-17-2021 Episodic Other nervous system disorders (20 sources) Carpal tunnel syndrome of left wrist; Translations: [Carpal tunnel syndrome, left] 05-17-2021 Chronic Comment on above: mild at this point d alma want cock up splint discussed treatment workup he want to hold for now Other nervous system disorders (1 source) Bilateral carpal tunnel syndrome; Translations: [Carpal tunnel syndrome, bilateral upper limbs] 12-06-2024 Chronic Other nervous system disorders (2 sources) Carpal tunnel syndrome, bilateral upper limbs; Translations: [Bilateral carpal tunnel syndrome] Onset: 12-06-2024 Chronic Other nervous system disorders (2 sources) Paresthesia of skin; Translations: [Paresthesia of skin] Onset: 05-17-2025 Episodic Other non-traumatic joint disorders (16 sources) Pain of right wrist; Translations: [Right wrist pain] 07-13-2022 Episodic Comment on above: SEEMS BETTER Other nutritional; endocrine; and metabolic disorders (20 sources) Body mass index 30+ - obesity; Translations: [BMI 33.0-33.9,adult] Onset: 02-20-2023 Resolved: 04-07-2020 12-07-2018 Chronic Other nutritional; endocrine; and metabolic disorders (6 sources) Obese class I; Translations: [Obesity, unspecified] Onset: 02-20-2023 02-20-2023 Chronic Other nutritional; endocrine; and metabolic disorders (2 sources) Obesity; Translations: [Obesity, unspecified] 04-21-2023 Chronic Other nutritional; endocrine; and metabolic disorders (1 source) Obesity, unspecified; Translations: [Obesity, unspecified] 10-27-2023 Chronic Other nutritional; endocrine; and metabolic disorders (2 sources) Overweight; Translations: [Overweight] 06-12-2020 Episodic Other screening for suspected conditions (not mental disorders or infectious disease) (20 sources) C-reactive protein abnormal; Translations: [Elevated C-reactive protein] Resolved: 11-27-2012 09-06-2018 Episodic Comment on above: diet and ex discusse d in detail Other skin disorders (20 sources) Eruption; Translations: [Rash] Resolved: 05-20-2012 05-20-2012 Episodic Other upper respiratory disease (20 sources) Bronchospasm; Translations: [Cough due to bronchospasm] 12-07-2018 Episodic Comment on above: called and got xray and there is some early could be infiltrate called pt and levaquin help but not all the way there so will call in anothr week worth with the prednisone to help wheezing. toldhim to watch for tendon aches including achilles tendon prachi wth the two together. is jusst as sick so alledher in atb. if not better in a week will follow up callif worsen Residual codes; unclassified (20 sources) Obstructive sleep apnea of adult; Translations: [Obstructive sleep apnea, adult] 12-07-2018 Chronic Comment on above: now on cpap thinks h elping energy better with h is cpap WEARING CPAP ROUTINE LY at some point retest with weight loss wearing cpap rotuine ly chronic stable-romario nue present regimen wearing cpap Residual codes; unclassified (20 sources) Needs influenza immunization; Translations: [Need for prophylactic vaccination and inoculation against influenza (Renamed from Need for immunization against influenza)] 09-22-2017 Episodic Residual codes; unclassified (20 sources) Family history of diabetes mellitus; Translations: [Family history of diabetes mellitus type 2] 06-17-2015 Episodic Residual codes; unclassified (20 sources) Non-smoker; Translations: [Nonsmoker] 11-18-2020 Episodic Residual codes; unclassified (20 sources) Altered mental status; Translations: [Change in mental status] Resolved: 05-17-2021 05-17-2021 Episodic Comment on above: pt just woke up taki ng promethiazine. could be the covid enceph. could be DKA. pt has not tested self for DKA. Skin and subcutaneous tissue infections (16 sources) Infection of skin; Translations: [Skin infection] Resolved: 01-16-2022 2 Episodic Comment on above: if not resolved see derm who did as may need to open Superficial injury; contusion (1 source) Contusion of unspecified part of head, initial encounter; Translations: [Contusion of head, unspecified part of head, initial encounter] Onset: 02-19-2023 Episodic Unclassified (20 sources) Obstructive sleep apnea, adult Unclassified (20 sources) Unclassified (20 sources) MDvip wellness exam 08-27-2018 Comment on above: set up blood flow sc reening Unclassified (20 sources) DEFICIENCY, VITAMIN D NOS (268.9) Unclassified (20 sources) Non-smoker; Translations: [Nonsmoker] 12-07-2018 Unclassified (20 sources) BMI 33.0-33.9,adult Unclassified (20 sources) Elevated alkaline phosphatase level Unclassified (20 sources) Elevated high sensitivity C-reactive protein Unclassified (20 sources) BMI 34.0-34.9,adult Unclassified (6 sources) Atypical nevus Unclassified (7 sources) Carpal tunnel syndrome, left Unclassified (4 sources) Skin infection Unclassified (1 source) Nurse Visit Onset: 03-02-2023 Viral infection (20 sources) Disease caused by 2019-nCoV; Translations: [COVID] Resolved: 01-16-2022 05-17-2021 Episodic Past or Other Problems Problem Classification Problem Date Documented Da te Episodic/Chronic Open wounds of head; neck; and trunk (8 sources) Scalp laceration; Translations: [Laceration without foreign body of scalp, initial encounter] Onset: 02-19-2023 02-20-2023 Episodic Other screening for suspected conditions (not mental disorders or infectious disease) (14 sources) Elevated C-reactive protein; Translations: [Elevated high sensitivity C-reactive protein] 12-07-2018 Pneumonia (except that caused by tuberculosis or sexually transmitted disease) (1 source) Pneumonia (except that caused by tuberculosis or sexually transmitted disease) Skull and face fractures (9 sources) Closed fracture of right half of occipital bone; Translations: [Unspecified fracture of occiput, initial encounter for closed fracture] Onset: 02-19-2023 02-20-2023 Episodic Tuberculosis (20 sources) Tuberculosis Unclassified (20 sources) Unspecified Diagnosis Resolved: 11-27-2012 11-27-2012 Unclassified (20 sources) Patient encounter status; Translations: [Encounter for screening] Resolved: 11-27-2012 12-07-2018 Unclassified (20 sources) Rash (782.1) Unclassified (20 sources) Cough due to bronchospasm Unclassified (20 sources) Blurred vision (368.8) Unclassified (20 sources) Tuberculosis screening status; Translations: [SCREENING EXAMINATION FOR PULMONARY TUBERCULOSIS] 12-07-2018 Unclassified (15 sources) Poison omar Unclassified (1 source) Pneumococcal vaccination declined; Translations: [Pneumococcal vaccination declined] 08-27-2018 Unclassified (7 sources) Diphtheria-tetanus- pertussis (DTP) vaccination (V06.1) Unclassified (7 sources) Encounter for screening (V82.9) Unclassified (6 sources) Low sodium levels Viral infection (12 sources) Disease caused by 2019-nCoV Results Test Name Value Interpretation Reference Range Facility Orthopedic Visit Reporton Orthopedic Visit Report [facility] [address] [place] [address] OFFICE VISIT Date of Service: 05/09/25 MR#: [id number] Acct: [id number] Name: FRANCISCO CRENSHAW Rep #: [id number] : 1975 Provider: Dr. Troy rivero MD Age/Sex: 49/M [facility] Status: Signed Intake Vital Signs 02/28/25 07:59 05/09/25 08:31 Height 5 ft 4 in 5 ft 4 in Weight: 203 lb 195 lb BMI 34.8 33.5 BP 136/74 H Blood Pressure Location Lt brachial Position Sitting Pulse 58 L Pulse Source Monitor Pulse Oximetry (%) 97 Oxygen Delivery Method room air Intake Visit Reasons: BILATERAL HANDS Chief Complaint: Bilateral hands numbness Accompanied by: Self Is patient in pain?: No Allergies No Known Allergies Allergy (Verified 05/09/25 08:34) Medications ???Medication ???Instructions ???Recorded ???Confirmed ???Type cholecalciferol (vitamin D3) 125 5,000 unit PO DAILY 06/14/1905/09 History mcg (5,000 unit) disintegrating tablet coenzyme Q10 10 mg capsule (Co 10 mg PO ONCE 05/13/21 10/31/25 Hi story Q-10) rosuvastatin 20 mg tablet 40 mg PO DAILY 04/19/24 05/09/25 H istory Humalog KwikPen Insulin 200 200 unit subcut QDAY #30 mL 05/09/25 Rx unit/mL (3 mL) subcutaneous (insulin lispro) tirzepatide 5 mg/0.5 mL 5 mg subcut QWEEK 08/30/24 5 History subcutaneous pen injector (Mounjaro) insulin pump cartridge,auto #1 ea 11/19/24 05/09/25 Rx dose,BT,G6/G7 with controller subcutaneous (Omnipod 5 G6-G7 Intro Kit(Gen 5) subcutaneous cartridge and controller) insulin pump cart,auto,BT,G6/7 #30 ea 12/19/24 05/09/25 Rx (Omnipod 5 G6-G7 Pods (Gen 5) subcutaneous cartridge) blood-glucose sensor (Dexcom G7 #9 ea 01/13/25 05/09/25 Rx Sensor device) Have you fallen in the past year?: No [facility] Medical History (Updated 05/09/25 @ 08:39 by Troy Gibbons MD) Bilateral carpal tunnel syndrome Obesity Diabetes mellitus type 1 High cholesterol Family History Other Diabetes High cholesterol Social History Smoking Status: Never smoker alcohol intake: current alcohol intake frequency: a few times a month Alcohol type: beer HPI BILATERAL HANDS Details: This documentation accurately reflects the service provided and the decisions made by me, Dr. Troy Gibbons MD 05/09/25830. Part of today???s visit was documented by [ ], acting as scribe. FRANCISCO CRENSHAW is a 49 year old M here today for bilateral carpal tunnel syndrome. Already had the nerve studies. [facility]. [facility]. 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 thumb index and middle going numb. 2 years. getting worse. has to shake it out. worse with driving, bike riding. tx - steroid injection. didn't help. on the left. Ortho Exam General General: Yes no acute distress Neurologic: Yes alert and Yes oriented x3 Psychologic: Yes reasonable and appropriate Right Wrist/Hand Skin/Wound: Yes CDI, No Swelling, No Ecchymosis, Yes nail intact and Yes capillary refill normal Right Wrist: Yes ROM-Extension 0-60, ROM-Flexion 0-80, ROM-Pronation 0-80 and ROM-Supination 0-90; No Durken's Test, Tinel's, Phalen's, Thenar Atrophy or Hypothenar Atrophy Motor: EPL: 5, FDP-2: 5, 1st Dorsal Interosseous: 5 and APB: 5 Sensation: Radial: I, Ulnar: I and Median: I WRIST: neg tinels at the elbows both sides, POS scratch collapse test both sides. Left Wrist/Hand Skin/Wound: Yes CDI, No Swelling, No Ecchymosis, Yes nail intact, Yes capillary refill normal and No erythema Left Wrist: Yes ROM-Extension 0-60, Yes ROM-Flexion 0-80, Yes ROM-Pronation 0-80 and Yes ROM- Supination 0-90; No Durken's Test, No Tinel's, No Phalen's, No Thenar Atrophy and No Hypothenar Atrophy Motor: EPL: 5, FDP-2: 5, 1st Dorsal Interosseous: 5 and APB: 5 Sensation: Radial: I, Ulnar: I and Median: I Supplemental Info [facility] Pulmonary Services/Neurology [address] [place] [address] MR#: [id number] Acct: [id number] Name: FRANCISCO CRENSHAW Rep #: [id number] : 1975 49 From: Trang Sahni MD Referring Dr: Tawanna Pickard DO Status: REG CLI Location: PSN Date: 05/06/25 Sex: M C NCS and/or EMG Patient Report Ordering Doctor: Tawanna Pickard DATE OF SERVICE: 05/06/25 Clinical Summary: 49 year old male patient with symptoms of numbness in both hands. Nerve Conduction Studies Summary: Nerve conduction studies were performed in the bilateral up (more content not included)... Normal [facility] NCS and/or EMG Patienton NCS and/or EMG Patient [facility] Pulmonary Services/Neurology [address] [place] [address] MR#: [id number] Acct: [id number] Name: FRANCISCO CRENSHAW Rep #: [id number] : 1975 49 From: Trang Sahni MD Referring Dr: Tawanna Pickard DO Status: REG CLI Location: PSN Date: 05/06/25 Sex: M C NCS and/or EMG Patient Report Ordering Doctor: Tawanna Pickard DATE OF SERVICE: 05/06/25 Clinical Summary: 49 year old male patient with symptoms of numbness in both hands. Nerve Conduction Studies Summary: Nerve conduction studies were performed in the bilateral upper extremities. The median-D2 SNAP distal latency was prolonged bilaterally. The right median-APB CMAP distal latency was prolonged. The median motor conduction velocity was reduced bilaterally in the forearm segment. Needle Examination Summary: Needle examination of the bilateral upper extremities demonstrated a higher proportion of motor unit action potentials with reduced recruitment, increased amplitude, increased duration, and polyphasia in the bilateral abductor pollicis brevis muscles. Impression: This is an abnormal study. 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 There is no electrodiagnostic evidence of right/left ulnar mononeuropathies or cervical radiculopathies. Multi Select Codes Neurology Neurology Interp Codes: 92134-22 Musc test done w/n test comp (interp) (2) and 29276-25 Nrv cndj test 9-10 studies (interp) 05/06/25 1035 Date Trang Sahni MD CC: Dr. Trang Sahni MD; Dr. Tawanna Pickard DO Date Dictated: 05/06/25850 Date Transcribed: 05/06/25850 Hvac Service Tech: Signed Normal [facility] Endocrinology Visit Reporton 02-28-2025 Endocrinology Visit Report [facility] [address] [place] [address] [address] [place] [address] OFFICE VISIT Date of Service: 02/28/25 MR#: [id number] Acct: [id number] Name: FRANCISCO CRENSHAW Rep #: [id number] : 1975 Provider: Sonya Massey Age/Sex: 49/M Location: [facility] Status: Signed Intake Vital Signs 08/30/24 09:32 02/28/25 07:59 Height 5 ft 4 in 5 ft 4 in Weight: 215 lb 4 oz 203 lb BMI 36.9 34.8 BP 158/91 H 136/74 H Blood Pressure Location Lt brachial Lt brachial Position Sitting Sitting Pulse 59 L 58 L Pulse Source Monitor Monitor Pulse Oximetry (%) 97 97 Oxygen Delivery Method room air room air Intake Visit Reasons: 6 M FU Chief Complaint: Diabetes English Adjunct Faculty Required: No Accompanied by: Self Is patient in pain?: No Allergies No Known Allergies Allergy (Verified 02/28/25 07:59) Medications ???Medication ???Instructions ???Recorded ???Confirmed ???Type cholecalciferol (vitamin D3) 125 5,000 unit PO DAILY 06/14/1902/28 History mcg (5,000 unit) disintegrating tablet coenzyme Q10 10 mg capsule (Co 10 mg PO ONCE 11/19/20 02/28/25 Hi story Q-10) rosuvastatin 20 mg tablet 40 mg PO DAILY 04/19/24 02/28/25 H istory Humalog KwikPen Insulin 200 200 unit subcut QDAY #30 mL 02/28/25 Rx unit/mL (3 mL) subcutaneous (insulin lispro) tirzepatide 5 mg/0.5 mL 5 mg subcut QWEEK 08/30/24 5 History subcutaneous pen injector (Mounjaro) insulin pump cartridge,auto #1 ea 11/19/24 02/28/25 Rx dose,BT,G6/G7 with controller subcutaneous (Omnipod 5 G6-G7 Intro Kit(Gen 5) subcutaneous cartridge and controller) insulin pump cart,auto,BT,G6/7 #30 ea 12/19/24 02/28/25 Rx (Omnipod 5 G6-G7 Pods (Gen 5) subcutaneous cartridge) blood-glucose sensor (Dexcom G7 #9 ea 01/13/25 02/28/25 Rx Sensor device) [facility] Medical History Obesity Diabetes mellitus type 1 High cholesterol Family History Other Diabetes High cholesterol Social History Smoking Status: Never smoker alcohol intake: current alcohol intake frequency: a few times a month Alcohol type: beer HPI HPI Chief Complaint: Diabetes Details: FRANCISCO CRENSHAW, is a 49 M who presents to the office today for follow up. A1C is 6.3%, this is the best A1C he has had. He is using Omnipod 5 insulin pump with Dexcom G7 CGM and automated mode. We also changed him to U-200 insulin. He likes the new system. He had labs today for Dr. Pickard. He is a statin. He is taking a GLP-1 medication. He has lost 12 pounds. He is eating more vegetables. ROS Const Constitutional: No fatigue, weakness, weight change or change in appetite Eyes Eyes: No change in vision ENT ENT: No hearing loss, nasal congestion or difficulty swallowing Cardio Cardiology: No chest pain at rest, chest pain with exertion or shortness of breath Musc Musculoskeletal: No numbness Neuro Neurology: No weakness, memory loss or numbness Psych Psychiatric: No change in appetite, No memory loss and No Thoughts of harming yourself/Others Resp Respiratory: No cough or chest congestion Gastro GI: No difficulty swallowing Genitourinary Male: No burning urination Skin Skin: No itchy eyes or wounds Endo Endocrine: No fatigue or weight change Aller/Imm Allergy/Immunologic: No itchy eyes Exam Const General: cooperative, healthy appearing, comfortable, no acute distress, well developed and not cushingoid Nutritional Appearance: well nourished Orientation: alert, awake and oriented x3 HENMT Head: normal to inspection Ears: hearing grossly normal bilaterally Nose: external nose normal Mouth: oral mucosae normal Eyes General: appearance normal, both eyes and all related structures Alignment and Position: alignment normal Periorbital: periorbital findings normal Eyelids: eyelids normal Conjunctivae: conjunctivae normal Neck Neck: normal visual inspection Neck mass: No Chest Chest palpation inspection: normal inspection of the chest Resp Effort Inspection: normal respiratory effort, able to speak in complete sentences, symmetric chest movement, no audible wheezes and no cough Cardio Rate: regular rate Rhythm: regular rhythm Skin General: no rashes or lesions noted Neuro General: patient alert, patient awake and patient oriented x3 Cranial Nerves: CN's II-XI intact bilaterally Cognition: normal cognition Speech: speech normal Gait: normal gait Motor: muscle tone normal throughout Extrem General: no edema Psych Appearance: grossly normal Mental Status: mental status grossly normal Mood: congruent mood (more content not included)... Normal [facility] Additional Injections: L car pal tunnelon 12-06-2024 Quintin Shay PA- C 12/06/2024 9:53 AM Additional Injections: L carpal tunnel for carpal tunnel syndrome 12/06/2024 9:52 AM The procedure site was prepped in the usual sterile fashion. Medications: 3 mg betamethasone acetate-betamethasone sodium phosphate 6 mg/mL Anesthetics: 0.5 mL lidocaine (PF) 10 mg/mL (1 %) Outcome: tolerated well, no immediate complications Post-injection instructions were reviewed with the patient and the patient voiced understanding of these instructions. Informed Consent Consent Obtained: Verbal Grimes Protocol A moment to CARE was completed. SIGN IN Personnel directly involved with the procedure wore the appropriate PPE. Special Equipment: N/A Patient/Surrogate Stated/Verified: Patient name, Date of , Relevant allergies and Intended procedure TIME OUT No relevant labs, photos, and/or imaging studies were applicable for review. Correct side/site marked and visible. Medications required for procedure verified. No fire risk assessment and interventions applicable. No implant(s) inserted. SIGN OUT All instruments, equipment, possible retained foreign bodies accounted for. [facility] CNOVon 12-06-2024 CNOV Office Visit (ORTHTW ) FRANCISCO CRENSHAW ([id number]) 1975 M Date Time Provider Department 12/06/24 9:20 AM QUINTIN SHAY During your visit today, we recorded the following information about you: Quintin Shay PA-C 12/06/2024 9:53 AM Signed New patient referred by self for B/L hand concerns. HPI: Mr. Crenshaw is a right hand dominant 49 year old male who is active with a chief complaint of L>R hand numbness and tingling in the median nerve distribution. The symptoms have been going on for 6+ months. The patient complains of night wakening and increased symptoms with driving. Other complaints include none. Evaluation to date has included None. Treatment to date has included observation. The current symptoms are rated a 2-3/10 and interfere with sleep and use of hands. IDDM and last A1c 07/02 7.8 PAST MEDICAL HISTORY Diagnosis Date Diabetes (HCC) Hypercholesteremia Current Outpatient Medications Medication Sig Dispense Refill levETIRAcetam (KEPPRA) 500 mg tablet Take 1 tablet by mouth twice daily for 14 days. 28 tablet 0 ondansetron (ZOFRAN) 4 mg tablet Take 1 tablet by mouth every 8 hours as needed for nausea/vomiting. 15 tablet 0 DEXCOM G6 SENSOR anat as directed. DEXCOM G6 TRANSMITTER anat as directed. rosuvastatin (CRESTOR) 20 mg tablet NOVOLOG U-100 INSULIN ASPART 100 unit/mL USE UP TO 130 UNITS DAILY SUBCUTANEOUSLY VIA INSULIN PUMP No current facility-administered medications for this visit. ALLERGIES No Known Allergies All medical history, medications and allergies have been discussed with the patient today. ROS: REVIEW OF SYMPTOMS: Constitutional: patient denies any recent fever or significant change in weight Gastrointestinal: patient denies any current abdominal discomfort Musculoskeletal: as noted in the HPI Neurologic: as noted in the HPI SOCIAL HISTORY: Tobacco Use: Never Physical Examination: Mr. Crenshaw is a healthy appearing male in no acute distress. Bilateral upper limbs have equal and intact peripheral pulses. Skin does not demonstrate any rashes or lesions. Cervical spine has full range of motion and no tenderness to palpation, Negative Spurling's on the bilateral side(s). Shoulders and elbows have pain freerange of motion. Positive carpal tunnel compression testing and Phalen testing on the L>R. Inspection reveals no thenar atrophy on the B/L. Intact sensation to light touch in the radial 3 digits. neg Tinel's over the cubital tunnel, ulnar nerve is stable at the elbow with flexion. Negative Tinel's over Guyon's canal. Sensation is equal and intact in the ulnar 2 digits with no intrinsic atrophy/weakness. No tenderness to palpation or masses noted in the forearm. Assessment: Bilateral carpal tunnel syndrome (primary encounter diagnosis). Plan: I discussed with Mr. Crenshaw the diagnosis and different treatment options. We discussed getting an EMG/NCV study and the reasons for the test.. We discussed observation, EMG/NCV, night splinting, cortisone injections and surgical decompression and the risks and benefits of all were clearly outlined. After discussing in detail the patient elects for CSI for left CTS and night bracing B/L. Patient to pay attention to symptoms relief in next 2-4 weeks. If good relief, LCTR may be recommended. Follow up 3 months prn. Additional Injections: L carpal tunnel for carpal tunnel syndrome 12/06/2024 9:52 AM The procedure site was prepped in the usual sterile fashion. Medications: 3 mg betamethasone acetate-betamethasone sodium phosphate 6 mg/mL Anesthetics: 0.5 mL lidocaine (PF) 10 mg/mL (1 %) Outcome: tolerated well, no immediate complications Post-injection instructions were reviewed with the patient and the patient voiced understanding of these instructions. Informed Consent Consent Obtained: Verbal Grimes Protocol A moment to CARE was completed. SIGN IN Personnel directly involved with the procedure wore the appropriate PPE. Special Equipment: N/A Patient/Surrogate Stated/Verified: Patient name, Date of , Relevant allergies and Intended procedure TIME OUT No relevant labs, photos, and/or imaging studies were applicable for review. Correct side/site marked and visible. Medications required for procedure verified. No fire risk assessment and interventions applicable. No implant(s) inserted. SIGN OUT All instruments, equipment, possible retained foreign bodies accounted for. Quintin Shay PA-C December 06, 2024 9:47 AM Allergies As of Date: 12/06/2024 (No Known Allergies) Date Reviewed: 12/06/2024 Reviewed by: Malika Hackett OCCA - Fully Assessed Reason for Visit: New [[id number]] Cmt: Symptoms of numbness and burning for several months- mainly when driving and sleeping. No previous treatment New [[id number]] Cmt: Symptoms of numbness and burning for several months- mainly when driving and s (more content not included)... Normal [facility] Endocrinology Visit Reporton 08-30-2024 Endocrinology Visit Report [facility] [address] [place], [place] [address] OFFICE VISIT Date of Service: 08/30/24 MR#: [id number] Acct: [id number] Name: FRANCISCO CRENSHAW Rep #: [id number] : 1975 Provider: Sonya Massey Age/Sex: 49/M [facility] [place] [facility] Status: Signed Intake Vital Signs 04/19/24 08:03 08/30/24 09:32 Height 5 ft 4 in 5 ft 4 in Weight: 218 lb 2 oz 215 lb 4 oz BMI 37.4 36.9 BP 153/98 H 158/91 H Blood Pressure Location Rt brachial Lt brachial Position Sitting Sitting Pulse 70 59 L Pulse Source Monitor Monitor Pulse Oximetry (%) 96 97 Oxygen Delivery Method room air room air Intake Visit Reasons: 4 M , RS 07/25 Chief Complaint: Diabetes Is patient in pain?: No Allergies No Known Allergies Allergy (Verified 08/30/24 09:34) Medications ???Medication ???Instructions ???Recorded ???Confirmed ???Type cholecalciferol (vitamin D3) 125 5,000 unit PO DAILY 06/14/1908/30 History mcg (5,000 unit) disintegrating tablet coenzyme Q10 10 mg capsule (Co 10 mg PO ONCE 11/19/20 08/30/24 Hi story Q-10) blood-glucose sensor ([employer] G7 #9 ea 02/19/24 08/30/24 Rx Sensor device) rosuvastatin 20 mg tablet 40 mg PO DAILY 04/19/24 08/30/24 H istory insulin aspart U-100 100 unit/mL See Rx Instructions subcut 4 08/30/24 Rx subcutaneous solution (Novolog .continuous #50 mL U-100 Insulin aspart) Humalog KwikPen Insulin 200 200 unit subcut QDAY #30 mL 08/30/24 Rx unit/mL (3 mL) subcutaneous (insulin lispro) tirzepatide 5 mg/0.5 mL 5 mg subcut QWEEK 08/30/24 5 History subcutaneous pen injector (Mounjaro) [facility] Medical History Obesity Diabetes mellitus type 1 High cholesterol Family History Other Diabetes High cholesterol Social History Smoking Status: Never smoker alcohol intake: current alcohol intake frequency: a few times a month Alcohol type: beer HPI HPI Chief Complaint: Diabetes Details: FRANCISCO CRENSHAW, is a 49 M who presents to the office today for follow up. A1C is 7.8% He is using t-slim insulin pump with Dexcom CGM and Control IQ Upload reveals he is using up to 150 units of insulin per day. He reports that the insulin is slow to respond. He has type 1 diabetes with low C-peptide, but he also has metabolic syndrome and insulin resistance. He started Mounjaro 2.5 mg weekly. ROS Const Constitutional: No fatigue or weight change ENT ENT: No dizziness/vertigo Cardio Cardiology: No chest pain at rest, chest pain with exertion, shortness of breath or palpitations Skin Skin: No wounds Endo Endocrine: No fatigue or weight change Exam Const General: cooperative, healthy appearing, comfortable, no acute distress, well developed and not cushingoid Nutritional Appearance: well nourished and overweight Orientation: alert, awake and oriented x3 Other: increased waist to hip ratio HENMT Head: normal to inspection Ears: hearing grossly normal bilaterally Nose: external nose normal Mouth: oral mucosae normal Eyes General: appearance normal, both eyes and all related structures Alignment and Position: alignment normal Periorbital: periorbital findings normal Eyelids: eyelids normal Conjunctivae: conjunctivae normal Neck Neck: normal visual inspection Neck mass: No Thyroid: thyroid normal Chest Chest palpation inspection: normal inspection of the chest Resp Effort Inspection: normal respiratory effort, able to speak in complete sentences, symmetric chest movement, no audible wheezes and no cough Auscultation: Bilateral: Clear to Auscultation Cardio Rate: regular rate Rhythm: regular rhythm Skin General: no rashes or lesions noted Neuro General: patient alert, patient awake and patient oriented x3 Cranial Nerves: CN's II-XI intact bilaterally Cognition: normal cognition Speech: speech normal Gait: normal gait Motor: muscle tone normal throughout Extrem General: no edema Psych Appearance: grossly normal Mental Status: mental status grossly normal Mood: congruent mood Affect: normal affect Speech and Movement: speech and movement normal Attitude: cooperative Thought Process: normal Thought Content: normal Judgment: judgment good Assessment and Plan Assessment and Plan (1) Diabetes mellitus type 1: Status: Chronic Qualifiers: Diabetes mellitus complication status: with hyperglycemia Qualified Code(s): E10.65 - Type 1 diabetes mellitus with hyperglycemia Plan: Suboptimal control. High insulin needs. Would like to change his insulin to U-200 so he doesn't have to change hi (more content not included)... Normal [facility] Basophil percentageOrdered B y: Landen Evangelista on 10-27-2023 Cholesterol [Mass/Vol] 197 mg/dL <200 [facility] Comment on above: <200 mg/dL Desirable 200-240 mg/dL Borderline >240 mg/dL High Risk Triglyceride [Mass/Vol] 642 mg/dL <199 [facility] Comment on above: The drugs N-Acetylcy steine and Metamizole may falsely depress this assay. TRIGLYCERIDE IS GREATER THAN 400 mg/dL. LDL RESULT IS INVALID AND WILL NOT BE REPORTED.Serum Triglycerides Reference Interval Normal <150 mg/dL Borderline high 150 - 199 mg/dL High 200 - 499 mg/dL Very High > or = 500 mg/dL Laboratory - Chemistry and C hemistry - challengeOrdered By: Landen Evangelista on 10-27-2023 Cholesterol in HDL [Mass/Vol] 34 mg/dL >40 [facility] Comment on above: The drugs N-Acetylcy steine and Metamizole may falsely depress this assay. Reference Range HDL <40 mg/dL Low HDL Cholesterol HDL >or= 60 mg/dL High HDL Cholesterol Laboratory - Hematology and Cell countson 10-27-2023 HbA1c (Bld) [Mass fraction] 7.5 % 4.2-6.3 [facility] No Panel InformationOrdered By: Landen Evangelista on 10-27-2023 LDL Cholesterol [facility] Comment on above: Test not performed VLDL Cholesterol [facility] Comment on above: Test not performed CNOVon 03-23-2023 CNOV Office Visit (NMMMM) FRANCISCO CRENSHAW ([id number]) 1975 M Date Time Provider Department 03/23/23 8:45 AM JOSLYN TURCIOS During your visit today, we recorded the following information about you: Joslyn Turcios MD 03/23/2023 9:14 AM Signed [facility] Established Patient Consultation No referring provider defined for this encounter. CC: Traumatic brain injury Subjective History of Present Illness: Mr. Crenshaw is a pleasant 47yo gentleman with a history of a ground-level fall hitting his head in a rock. He denies any LOC. He was seen at [facility] ED on 02/19/[address] revealed bifrontal and bitemporal hemorrhagic contusions with trace associated subarachnoid blood and a nondepressed right occipital fracture. He also had an open wound in the occipital region that required aakash. He was moved to the ICU and a 12h later head CT revealed stable findings. He was discharged on 02/20/2023 with recommendations to see us in one month with new head CT. He was also prescribed Keppra for 2 weeks. He returns today with a new head CT. He states that he is doing well. Denies any headaches, nausea, seizures or vomiting. He does complain of occasional vertigo and loss of smell, but both symptoms are improving. Aakash were removed 2 weeks ago. Therapy Status Data Form Past Medical History: PAST MEDICAL HISTORY Diagnosis Date Diabetes (HCC) Hypercholesteremia Past Surgical History: No past surgical history on file. Family History: No family history on file. Social History Tobacco Use Smoking status: Never Smokeless tobacco: Never Vaping Use Vaping Use: Never used Substance Use Topics Alcohol use: Yes Comment: Occasionally Drug use: Never Allergies: Patient has no known allergies. Current Outpatient Medications Medication Sig levETIRAcetam (KEPPRA) 500 mg tablet Take 1 tablet by mouth twice daily for 14 days. ondansetron (ZOFRAN) 4 mg tablet Take 1 tablet by mouth every 8 hours as needed for nausea/vomiting. DEXCOM G6 SENSOR anat as directed. DEXCOM G6 TRANSMITTER anat as directed. rosuvastatin (CRESTOR) 20 mg tablet NOVOLOG U-100 INSULIN ASPART 100 unit/mL USE UP TO 130 UNITS DAILY SUBCUTANEOUSLY VIA INSULIN PUMP No current facility-administered medications for this visit. Employed: Yes Review of systems: Constitutional: No recent fever or weight loss. Eyes: No history of glaucoma or cataracts. ENMT: No recent ear infection, nasal congestion, mouth sores or sore throat. CV: No history of chest pain, palpitations or leg swelling. Respiratory: No history of SOB, asthma or recent cough. Gastrointestinal: No history of nausea, vomiting, dysphagia or abdominal pain. Genitourinary: No history of hematuria or dysuria. Musculoskeletal: No complaint of arthritis, unstable gait or arm/leg weakness. Psychiatric: No history of hallucinations or depression or anxiety. ROS Neurological: No complaint of headache. No complaint of tinnitus. No complaint of decreased hearing. No complaint of diplopia. No complaints of decreased visual acuity. No complaint of arm/leg numbness. No problem with limb coordination. No complaint of syncope, seizures or disorientation. Objective Physical Exam: There were no vitals taken for this visit. Neurological: Higher integrative functions: Oriented to person, place AND time. Memory: Good recent and remote. Attention Span and Concentration: Good. Language: Accurate naming of objects. Good comprehension. Fund of Knowledge: Good. 2nd CN: Full visual velázquez. 3rd,4th,6th CN: Pupils (=), round, react to light, full extraocular movements. 5th CN: No decrease in facial sensation. 7th CN: Facial muscles symmetric and strong. 8th CN: Hears finger rub well bilaterally. 9th CN: Good gag. 10th CN: Spontaneous palate movement, full and symmetric. 11th CN: Full strength in shoulder shrug. 12th CN: Tongue protrusion full and midline. Sensation: No decrease in sensation in upper or lower limbs to touch. Musculoskeletal: Steady gait. Motor all limbs grade 5. Myotatic reflexes: 2/4 throughout and symmetrical. Babinski reflexes: Absent. Coordination: Rapid alternating movements fast and smooth all limbs. Labs: CBC Latest Ref Rng AND Units 02/19/2023 02/20/2023 WBC 3.70 - 11.00 k/uL 14.33(H) 14.74(H) RBC 4.20 - 6.00 m/uL 4.91 4.90 HEMOGLOBIN 13.0 - 17.0 g/dL 15.3 15.1 HEMATOCRIT 39.0 - 51.0 % 43.1 43.3 MCV 80.0 - 100.0 fL 87.8 88.4 MCH 26.0 - 34.0 pg 31.2 30.8 MCHC 30.5 - 36.0 g/dL 35.5 34.9 RDW-CV 11.5 - 15.0 % 12.5 12.6 PLATELETS 150 - 400 k/uL 278 248 MPV 9.0 - 12.7 fL 10.4 10.4 BASO% % 0.3 - ABS NEUT (ANC) 1.45 - 7.50 k/uL 11.92(H) - ABS LYMPH 1.00 - 4.00 k/uL 1.59 - ABS MONO <0.87 k/uL 0.64 - ABS EOSIN <0.46 k/uL 0.06 - ABS BASO <0.11 k/uL 0.05 - NR (more content not included)... Normal [facility] CT BRAIN WO IVCONon 03-11-[address] BRAIN WO IVCON * * *Final Report* * * DATE OF EXAM: Mar 11 2023 8:34AM [facility] 0504 - CT BRAIN WO IVCON / PROCEDURE REASON: Cerebral hemorrhage (HCC) * * * * Physician Interpretation * * * * EXAMINATION: CT BRAIN WO IVCON CLINICAL HISTORY: Cerebral hemorrhage. TECHNIQUE: Serial axial images without IV contrast were obtained from the vertex to the foramen magnum. MQ: [id number] CT Radiation dose: Integrated Dose-Length Product (DLP) for this visit = 617.94 mGy*cm CT Dose Reduction Employed: [employer] COMPARISON: 02/19/2023. RESULT: Acute change: No evidence of an acute infarct or other acute parenchymal process. Hemorrhage: No current evidence of acute intracranial hemorrhage. Previously noted subarachnoid hemorrhages are no longer seen on current examination. Mass Lesion / Mass Effect: There is no evidence of an intracranial mass or extraaxial fluid collection. No significant mass effect. Chronic change: None apparent. Parenchyma: There is no significant volume loss. The brain parenchyma is otherwise within normal limits for age. Ventricles: The ventricles are within normal limits of size and configuration for age. Paranasal sinuses and skull base: The visualized paranasal sinuses are grossly clear. The skull base and imaged soft tissues are unremarkable. IMPRESSION: No current evidence of acute intracranial hemorrhage. Previously noted subarachnoid hemorrhages are no longer seen on current examination. No CT evidence of acute intracranial abnormalities. Hvac Service Tech: TRACI Transcribe Date/Time: Mar 14 2023 8:00A Dictated by : KEELEY QUEZADA MD This examination was interpreted and the report reviewed and electronically signed by: KEELEY QUEZADA MD on Mar 14 2023 8:08AM EST [id number] Normal [facility] CNNURSEon 03-02-2023 CNNURSE Nurse Visit (NMMMM) FRANCISCO CRENSHAW ([id number]) 1975 M Date Time Provider Department 03/02/23 11:15 AM JOSLYN TURCIOS During your visit today, we recorded the following information about you: Marilee Nails MA 03/02/2023 11:15 AM Signed 47 y/o male presents to office for staple removal. 7 aakash noted and all removed. Pt tolerated well. No additional concerns. Will have CT completed 03/14 and will RTO for new pt apt with Dr Turcios on 03/21 as scheduled. Allergies As of Date: 03/02/2023 (No Known Allergies) Date Reviewed: 03/02/2023 Reviewed by: Marilee Nails MA - Fully Assessed Reason for Visit: Nurse Visit [792] Cmt: Staple removal Primary Visit Diagnosis:Laceration of scalp, sequela [S01.01XS] Prescriptions as of 03/02/2023 - levETIRAcetam (KEPPRA) 500 mg tablet Take 1 tablet by mouth twice daily for 14 days. - ondansetron (ZOFRAN) 4 mg tablet Take 1 tablet by mouth every 8 hours as needed for nausea/vomiting. - DEXCOM G6 SENSOR anat as directed. - DEXCOM G6 TRANSMITTER anat as directed. - rosuvastatin (CRESTOR) 20 mg tablet - NOVOLOG U-100 INSULIN ASPART 100 unit/mL USE UP TO 130 UNITS DAILY SUBCUTANEOUSLY VIA INSULIN PUMP Problem List As Of Date 03/02/2023 Noted Resolved Intracranial hemorrhage (HCC) [I62.9] 02/20/2023 Closed fracture of right side of occipital bone*02/20/2023 Scalp laceration [S01.01XA] 02/20/2023 Diabetes mellitus type 1, controlled, without c*02/20/2023 Hyperlipidemia [E78.5] 02/20/2023 Obesity (BMI 30-39.9) [E66.9] 02/20/2023 Obesity, Class I, BMI 30-34.9 [E66.9] 02/20/2023 Visit Notes: >> Marilee Nails MA [facility] Mar 02, 2023 11:13 AM Status: Signed 47 y/o male presents to office for staple removal. 7 aakash noted and all removed. Pt tolerated well. No additional concerns. Will have CT completed 03/14 and will RTO for new pt apt with Dr Turcios on 03/21 as scheduled. Encounter Status:Closed by MARILEE NAILS on 03/02/23 [facility] 02-23-2023 [facility] Telephone ([facility]) FRANCISCO CRENSHAW ([id number]) 1975 M Date Time Provider Department 02/23/23 JOSLYN TURCIOSINSERA During your visit today, we recorded the following information about you: Marilee Nails MA 02/23/2023 8:53 AM Signed I again tried to contact Francisco today. He needs to be seen for a staple removal appointment. He also needs informed of the CT ordered and scheduled for 03/14 and schedule and in office appt for CT results [address] This was the third VM I have left for him. I have also contacted his significant other via phone call with no response. Allergies As of Date: 02/23/2023 (No Known Allergies) Date Reviewed: 02/20/2023 Reviewed by: Chastity Davidson RN - Fully Assessed Reason for Visit: Appointment [186] Prescriptions as of 02/23/2023 - acetaminophen 325 mg-caffeine 40 mg-butalbital 50 mg (FIORICET) per tablet Take 1 tablet by mouth every 6 hours as needed for headache for up to 5 days. - levETIRAcetam (KEPPRA) 500 mg tablet Take 1 tablet by mouth twice daily for 14 days. - ondansetron (ZOFRAN) 4 mg tablet Take 1 tablet by mouth every 8 hours as needed for nausea/vomiting. - DEXCOM G6 SENSOR anat as directed. - DEXCOM G6 TRANSMITTER anat as directed. - rosuvastatin (CRESTOR) 20 mg tablet - NOVOLOG U-100 INSULIN ASPART 100 unit/mL USE UP TO 130 UNITS DAILY SUBCUTANEOUSLY VIA INSULIN PUMP Problem List As Of Date 02/23/2023 Noted Resolved Intracranial hemorrhage (HCC) [I62.9] 02/20/2023 Closed fracture of right side of occipital bone*02/20/2023 Scalp laceration [S01.01XA] 02/20/2023 Diabetes mellitus type 1, controlled, without c*02/20/2023 Hyperlipidemia [E78.5] 02/20/2023 Obesity (BMI 30-39.9) [E66.9] 02/20/2023 Obesity, Class I, BMI 30-34.9 [E66.9] 02/20/2023 Encounter Status:Closed by MARILEE NAILS on 02/23/23 [facility] David 02-21-2023 [facility] Telephone ([facility]) FRANCISCO CRENSHAW ([id number]) 1975 M Date Time Provider Department 02/21/23 JOSLYN TURCIOS During your visit today, we recorded the following information about you: Allergies As of Date: 02/21/2023 (No Known Allergies) Date Reviewed: 02/20/2023 Reviewed by: Chastity Davidson RN - Fully Assessed Reason for Visit: Orders [681] Primary Visit Diagnosis:Cerebral hemorrhage (HCC) [I61.9] Order(s):CT BRAIN WO IVCON [[id number]] Order #: [id number] FUTURE Prescriptions as of 02/21/2023 - acetaminophen 325 mg-caffeine 40 mg-butalbital 50 mg (FIORICET) per tablet Take 1 tablet by mouth every 6 hours as needed for headache for up to 5 days. - levETIRAcetam (KEPPRA) 500 mg tablet Take 1 tablet by mouth twice daily for 14 days. - ondansetron (ZOFRAN) 4 mg tablet Take 1 tablet by mouth every 8 hours as needed for nausea/vomiting. - DEXCOM G6 SENSOR anat as directed. - DEXCOM G6 TRANSMITTER anat as directed. - rosuvastatin (CRESTOR) 20 mg tablet - NOVOLOG U-100 INSULIN ASPART 100 unit/mL USE UP TO 130 UNITS DAILY SUBCUTANEOUSLY VIA INSULIN PUMP Problem List As Of Date 02/21/2023 Noted Resolved Intracranial hemorrhage (HCC) [I62.9] 02/20/2023 Closed fracture of right side of occipital bone*02/20/2023 Scalp laceration [S01.01XA] 02/20/2023 Diabetes mellitus type 1, controlled, without c*02/20/2023 Hyperlipidemia [E78.5] 02/20/2023 Obesity (BMI 30-39.9) [E66.9] 02/20/2023 Obesity, Class I, BMI 30-34.9 [E66.9] 02/20/2023 Encounter Status:Closed by MARILEE NAILS on 02/21/23 [facility] CNPN Telephone ([facility]) DEBIFRANCISCO L ([id number]) 1975 M Date Time Provider Department 02/21/23 JOSLYN TURCIOS During your visit today, we recorded the following information about you: Marilee Nails MA 02/21/2023 3:28 PM Signed I called Francisco today to have him schedule a follow up appointment from the ER. CT is scheduled for 03/14 at [facility]. Needs to arrive 30 min prior apt. Will also need to schedule a 1 week follow up for CT results in office. Additional, needs to schedule an in office apt on 03/02 for staple removal. Left two voicemails today to call office back. Office number provided. Allergies As of Date: 02/21/2023 (No Known Allergies) Date Reviewed: 02/20/2023 Reviewed by: Chastity Davidson, RN - Fully Assessed Reason for Visit: Appointment [186] Prescriptions as of 02/21/2023 - acetaminophen 325 mg-caffeine 40 mg-butalbital 50 mg (FIORICET) per tablet Take 1 tablet by mouth every 6 hours as needed for headache for up to 5 days. - levETIRAcetam (KEPPRA) 500 mg tablet Take 1 tablet by mouth twice daily for 14 days. - ondansetron (ZOFRAN) 4 mg tablet Take 1 tablet by mouth every 8 hours as needed for nausea/vomiting. - DEXCOM G6 SENSOR anat as directed. - DEXCOM G6 TRANSMITTER anat as directed. - rosuvastatin (CRESTOR) 20 mg tablet - NOVOLOG U-100 INSULIN ASPART 100 unit/mL USE UP TO 130 UNITS DAILY SUBCUTANEOUSLY VIA INSULIN PUMP Problem List As Of Date 02/21/2023 Noted Resolved Intracranial hemorrhage (HCC) [I62.9] 02/20/2023 Closed fracture of right side of occipital bone*02/20/2023 Scalp laceration [S01.01XA] 02/20/2023 Diabetes mellitus type 1, controlled, without c*02/20/2023 Hyperlipidemia [E78.5] 02/20/2023 Obesity (BMI 30-39.9) [E66.9] 02/20/2023 Obesity, Class I, BMI 30-34.9 [E66.9] 02/20/2023 Encounter Status:Closed by MARILEE NAILS on 02/21/23 [facility] ALLIED HEALTHon 02-20-2023 ALLIED HEALTH HNO ID: [id number] Author: Mamie Mckeon Chaplain Service: Spiritual Care Author Type: Sausage Meat Trimmer Type: Allied Health Filed: 02/20/2023 3:14 PM Note Text: SPIRITUAL CARE PROGRESS NOTE SERVICE DATE: 02/20/2023 SERVICE TIME: 2:32 pm While rounding in ICU, attempted to provide spiritual presence to patient. Patient was busy with medical staff. A speech language specialist will follow up. To contact the Spiritual Care Department: Please call [phone]. SIGNATURE: Chaplain Sarah PATIENT NAME: Francisco Crenshaw DATE: February 20, 2023 TIME: 3:12 PM PAGER/CONTACT #: [phone] [facility] Basic metabolic 2000 panelon 02-20-2023 Anion gap [Moles/Vol] 8 mmol/L Normal 5-16 [facility] Comment on above: Order Comment: Speci men Type: BLOOD SPECIMENOrdering Facility: [facility] Address: [address] [place], [place] [address] Performed By: #### 2 4321-2 ####[facility]ORYCLIA [id number] [place] [address] [place] Calcium [Mass/Vol] 9.3 mg/dL Normal 8.5-10.5 [facility] Comment on above: Order Comment: Speci men Type: BLOOD SPECIMENOrdering Facility: [facility] Address: [address] [place], [place] [address] Performed By: #### 2 4321-2 ####[facility]ORYCLIA [id number] [place] [address] [place] Chloride [Moles/Vol] 108 mmol/L High 98-107 [facility] Comment on above: Order Comment: Speci men Type: BLOOD SPECIMENOrdering Facility: [facility] Address: [address] [address] Performed By: #### 2 4321-2 ####[facility]ATORYCLIA [id number] [place] [address] [place] CO2 [Moles/Vol] 24 mmol/L Normal 21-32 [facility] Comment on above: Order Comment: Speci men Type: BLOOD SPECIMENOrdering Facility: [facility] Address: [address] [address] Performed By: #### 2 4321-2 ####[facility]ORYCLIA [id number] [place] [address] [place] Creatinine [Mass/Vol] 0.70 mg/dL Normal 0.50-1.40 [facility] Comment on above: Order Comment: Speci men Type: BLOOD SPECIMENOrdering Facility: [facility] Address: [address] [place] [address] Result Comment: Nanci ents receiving either N-Acetylcysteine (NAC) or Metamizole prior to venipuncture, may have falsely depressed results. Performed By: #### 2 4321-2 ####[facility]ATORYCLIA [id number] [address] ESTIMATED GLOMERULAR FILTRATION RATE 116 mL/min/1.73m??? Normal >=[address] [facility] Comment on above: Order Comment: Speci men Type: BLOOD SPECIMENOrdering Facility: [facility] Address: [address] [place] [address] Result Comment: Taryn mated Glomerular Filtration Rate (eGFR) is calculated using the 2020 CKD-EPI creatinine equation. This equation utilizes serum creatinine, sex, and age as parameters. The creatinine assay has traceable calibration to isotope dilution-mass spectrometry. Refer to KDIGO guidelines for clinical interpretation. In patients with unstable renal function, e.g. those with acute kidney injury, the eGFR may not accurately reflect actual GFR. Performed By: #### 2 4321-2 ####[facility]ORYCLIA [id number] [place] [address] [place] Glucose [Mass/Vol] 164 mg/dL High 70-100 [facility] Comment on above: Order Comment: Speci men Type: BLOOD SPECIMENOrdering Facility: [facility] Address: [address] [place] [address] Result Comment: The [place] Diabetes [employer] (ADA) provides guidance for cutoff values for fasting glucose and random glucose. The ADA defines fasting as no caloric intake for at least 8 hours. Fasting plasma glucose results between 100 to 125 mg/dL indicate increased risk for diabetes (prediabetes). Fasting plasma glucose results greater than or equal to 126 mg/dL meet the criteria for diagnosis of diabetes. In the absence of unequivocal hyperglycemia, results should be confirmed by repeat testing. In a patient with classic symptoms of hyperglycemia or hyperglycemic crisis, random plasma glucose results greater than or equal to 200 mg/dL meet the criteria for diagnosis of diabetes. Reference: Standards of Medical Care in Diabetes 2016, [place] [employer]. Diabetes Care. 2016.39(Suppl 1). Results may be falsely elevated after the administration of Sulfapyridine. Results may be falsely depressed after the administration of Sulfasalazine. Performed By: #### 2 4321-2 ####[facility]ORYCLIA [id number] [place] [address] [place] Potassium [Moles/Vol] 4.0 mmol/L Normal 3.5-5.1 [facility] Comment on above: Order Comment: Patricia liliana Type: BLOOD SPECIMENOrdering Facility: [facility] Address: [address] [place] [address] Performed By: #### 2 4321-2 ####[facility]ORYCLIA [id number] [place] [address] [place] Sodium [Moles/Vol] 140 mmol/L Normal 136-145 [facility] Comment on above: Order Comment: Patricia liliana Type: BLOOD SPECIMENOrdering Facility: [facility] Address: [address] [place] [address] Performed By: #### 2 4321-2 ####[facility]ORYCLIA [id number] [place] [address] [place] Urea nitrogen [Mass/Vol] 9 mg/dL Normal 7-26 [facility] Comment on above: Order Comment: Speci men Type: BLOOD SPECIMENOrdering Facility: [facility] Address: [address] [address] Performed By: #### 2 4321-2 ####[facility]ORYCLIA [id number] [place] [address] [place] Anion gap [Moles/Vol] 9 mmol/L Normal 5-16 [facility] Comment on above: Order Comment: Speci men Type: BLOOD SPECIMEN Ordering Facility: [facility] Address: [address] [address] Performed By: #### 2 4321-2 #### [facility] CLIA [id number] [address] [place] [address] [place] Calcium [Mass/Vol] 9.8 mg/dL Normal 8.5-10.5 [facility] Comment on above: Order Comment: Speci men Type: BLOOD SPECIMEN Ordering Facility: [facility] Address: [address] Performed By: #### 2 4321-2 #### [facility] CLIA [id number] [address] [place] [address] [place] Chloride [Moles/Vol] 104 mmol/L Normal 98-107 [facility] Comment on above: Order Comment: Speci men Type: BLOOD SPECIMEN Ordering Facility: [facility] Address: [address] Performed By: #### 2 4321-2 #### [facility] CLIA [id number] [address] [place], [place] [address] [place] CO2 [Moles/Vol] 25 mmol/L Normal 21-32 [facility] Comment on above: Order Comment: Speci men Type: BLOOD SPECIMEN Ordering Facility: [facility] Address: [address] Performed By: #### 2 4321-2 #### [facility] CLIA [id number] [address] [place] [address] [place] Creatinine [Mass/Vol] 0.80 mg/dL Normal 0.50-1.40 [facility] Comment on above: Order Comment: Patricia ford Type: BLOOD SPECIMEN Ordering Facility: [facility] Address: [address] [id number] Result Comment: Nanci ents receiving either N-Acetylcysteine (NAC) or Metamizole prior to venipuncture, may have falsely depressed results. Performed By: #### 2 4321-2 #### [facility] CLIA [id number] [address] [place] [address] [place] ESTIMATED GLOMERULAR FILTRATION RATE 111 mL/min/1.73m??? Normal >=[address] [facility] Comment on above: Order Comment: Patricia ford Type: BLOOD SPECIMEN Ordering Facility: [facility] Address: [address] [place] [address] Result Comment: Taryn mated Glomerular Filtration Rate (eGFR) is calculated using the 2020 CKD-EPI creatinine equation. This equation utilizes serum creatinine, sex, and age as parameters. The creatinine assay has traceable calibration to isotope dilution-mass spectrometry. Refer to KDIGO guidelines for clinical interpretation. In patients with unstable renal function, e.g. those with acute kidney injury, the eGFR may not accurately reflect actual GFR. Performed By: #### 2 4321-2 #### [facility] CLIA [id number] [address] [place] [address] [place] Glucose [Mass/Vol] 195 mg/dL High 70-100 [facility] Comment on above: Order Comment: Patricia ford Type: BLOOD SPECIMEN Ordering Facility: [facility] Address: [address] [place], [place] [address] Result Comment: The [place] Diabetes [employer] (ADA) provides guidance for cutoff values for fasting glucose and random glucose. The ADA defines fasting as no caloric intake for at least 8 hours. Fasting plasma glucose results between 100 to 125 mg/dL indicate increased risk for diabetes (prediabetes). Fasting plasma glucose results greater than or equal to 126 mg/dL meet the criteria for diagnosis of diabetes. In the absence of unequivocal hyperglycemia, results should be confirmed by repeat testing. In a patient with classic symptoms of hyperglycemia or hyperglycemic crisis, random plasma glucose results greater than or equal to 200 mg/dL meet the criteria for diagnosis of diabetes. Reference: Standards of Medical Care in Diabetes 2016, [place] [employer]. Diabetes Care. 2016.39(Suppl 1). Results may be falsely elevated after the administration of Sulfapyridine. Results may be falsely depressed after the administration of Sulfasalazine. Performed By: #### 2 4321-2 #### [facility] CLIA [id number] [address] [place] [address] [place] Potassium [Moles/Vol] Normal [facility] Comment on above: Order Comment: Patricia ford Type: BLOOD SPECIMEN Ordering Facility: [facility] Address: [address] [place] [address] Result Comment: Unab le to assay due to interference from hemolysis. Suggest reorder as clinically indicated. Genia Woods RN Performed By: #### 2 4321-2 #### [facility] CLIA [id number] [address] [place] [address] [place] Sodium [Moles/Vol] 138 mmol/L Normal 136-145 [facility] Comment on above: Order Comment: Patricia ford Type: BLOOD SPECIMEN Ordering Facility: [facility] Address: [address] [place] [address] Performed By: #### 2 4321-2 #### [facility] CLIA [id number] [address] [place] [address] [place] Urea nitrogen [Mass/Vol] 11 mg/dL Normal 7-26 [facility] Comment on above: Order Comment: Patricia ford Type: BLOOD SPECIMEN Ordering Facility: [facility] Address: [address] [place] [address] Performed By: #### 2 4321-2 #### [facility] CLIA [id number] [address] [place] [address] [place] CBC W Auto Differential pane l (Bld)on 02-20-2023 Basophils (Bld) [#/Vol] 0.05 10*3/uL Normal <0.11 [facility] Comment on above: Order Comment: Speci men Type: BLOOD SPECIMEN Ordering Facility: [facility] Address: [address] [address] Performed By: #### 5 7021-8 #### [facility] CLIA [id number] [address] [place] [address] [place] Basophils/100 WBC (Bld) 0.3 % Normal [facility] Comment on above: Order Comment: Speci men Type: BLOOD SPECIMEN Ordering Facility: [facility] Address: [address] [address] Performed By: #### 5 7021-8 #### [facility] CLIA [id number] [address] [place] [address] [place] Differential cell count method Nom (Bld) Auto Normal [facility] Comment on above: Order Comment: Speci men Type: BLOOD SPECIMEN Ordering Facility: [facility] Address: [address] [address] Performed By: #### 5 7021-8 #### [facility] CLIA [id number] [address] [place] [address] [place] Eosinophils (Bld) [#/Vol] 0.06 10*3/uL Normal <0.46 [facility] Comment on above: Order Comment: Speci men Type: BLOOD SPECIMEN Ordering Facility: [facility] Address: [address] [address] Performed By: #### 5 7021-8 #### [facility] CLIA [id number] [address] [place] [address] [place] Eosinophils/100 WBC (Bld) 0.4 % Normal [facility] Comment on above: Order Comment: Speci men Type: BLOOD SPECIMEN Ordering Facility: [facility] Address: [address] [address] Performed By: #### 5 7021-8 #### [facility] CLIA [id number] [address] [place] [address] [place] Erythrocyte distribution width (RBC) [Ratio] 12.5 % Normal 11.5-15.0 [facility] Comment on above: Order Comment: Speci men Type: BLOOD SPECIMEN Ordering Facility: [facility] Address: [address] [address] Performed By: #### 5 7021-8 #### [facility] CLIA [id number] [address] [place] [address] [place] Hematocrit (Bld) [Volume fraction] 43.1 % Normal 39.0-51.0 [facility] Comment on above: Order Comment: Speci men Type: BLOOD SPECIMEN Ordering Facility: [facility] Address: [address] [address] Performed By: #### 5 7021-8 #### [facility] CLIA [id number] [address] [place] [address] [place] Hemoglobin (Bld) [Mass/Vol] 15.3 g/dL Normal 13.0-17.0 [facility] Comment on above: Order Comment: Speci men Type: BLOOD SPECIMEN Ordering Facility: [facility] Address: [address] [address] Performed By: #### 5 7021-8 #### [facility] CLIA [id number] [address] [place] [address] [place] Immature granulocytes (Bld) [#/Vol] 0.07 10*3/uL Normal <0.10 [facility] Comment on above: Order Comment: Speci men Type: BLOOD SPECIMEN Ordering Facility: [facility] Address: [address] [address] Performed By: #### 5 7021-8 #### [facility] CLIA [id number] [address] [place] [address] [place] Immature granulocytes/100 WBC (Bld) 0.5 % Normal [facility] Comment on above: Order Comment: Speci men Type: BLOOD SPECIMEN Ordering Facility: [facility] Address: [address] [address] Performed By: #### 5 7021-8 #### [facility] CLIA [id number] [address] [place] [address] [place] Lymphocytes (Bld) [#/Vol] 1.59 10*3/uL Normal 1.00-4.00 [facility] Comment on above: Order Comment: Speci men Type: BLOOD SPECIMEN Ordering Facility: [facility] Address: [address] [place] [address] Performed By: #### 5 7021-8 #### [facility] CLIA [id number] [address] [place] [address] [place] Lymphocytes/100 WBC (Bld) 11.1 % Normal [facility] Comment on above: Order Comment: Speci men Type: BLOOD SPECIMEN Ordering Facility: [facility] Address: [address] [place] [address] Performed By: #### 5 7021-8 #### [facility] CLIA [id number] [address] [place] [address] [place] MCH (RBC) [Entitic mass] 31.2 pg Normal 26.0-34.0 [facility] Comment on above: Order Comment: Speci men Type: BLOOD SPECIMEN Ordering Facility: [facility] Address: [address] [place] [address] Performed By: #### 5 7021-8 #### [facility] CLIA [id number] [address] [place] [address] [place] MCHC (RBC) [Mass/Vol] 35.5 g/dL Normal 30.5-36.0 [facility] Comment on above: Order Comment: Speci men Type: BLOOD SPECIMEN Ordering Facility: [facility] Address: [address] [place] [address] Performed By: #### 5 7021-8 #### [facility] CLIA [id number] [address] [place] [address] [place] MCV (RBC) [Entitic vol] 87.8 fL Normal 80.0-100.0 [facility] Comment on above: Order Comment: Speci men Type: BLOOD SPECIMEN Ordering Facility: [facility] Address: [address] [address] Performed By: #### 5 7021-8 #### [facility] CLIA [id number] [address] [place] [address] [place] Monocytes (Bld) [#/Vol] 0.64 10*3/uL Normal <0.87 [facility] Comment on above: Order Comment: Speci men Type: BLOOD SPECIMEN Ordering Facility: [facility] Address: [address] [address] Performed By: #### 5 7021-8 #### [facility] CLIA [id number] [address] [place] [address] [place] Monocytes/100 WBC (Bld) 4.5 % Normal [facility] Comment on above: Order Comment: Speci men Type: BLOOD SPECIMEN Ordering Facility: [facility] Address: [address] [address] Performed By: #### 5 7021-8 #### [facility] CLIA [id number] [address] [place] [address] [place] Neutrophils (Bld) [#/Vol] 11.92 10*3/uL High 1.45-7.50 [facility] Comment on above: Order Comment: Speci men Type: BLOOD SPECIMEN Ordering Facility: [facility] Address: [address] [address] Performed By: #### 5 7021-8 #### [facility] CLIA [id number] [address] [place] [address] [place] Neutrophils/100 WBC (Bld) 83.2 % Normal [facility] Comment on above: Order Comment: Speci men Type: BLOOD SPECIMEN Ordering Facility: [facility] Address: [address] [address] Performed By: #### 5 7021-8 #### [facility] CLIA [id number] [address] [place] [address] [place] Nucleated RBC (Bld) [#/Vol] 10*3/uL Normal <0.01 [facility] Comment on above: Order Comment: Speci men Type: BLOOD SPECIMEN Ordering Facility: [facility] Address: [address] [address] Performed By: #### 5 7021-8 #### [facility] CLIA [id number] [address] [place] [address] [place] Nucleated RBC/100 WBC (Bld) [Ratio] 0.0 /100 WBC Normal [facility] Comment on above: Order Comment: Speci men Type: BLOOD SPECIMEN Ordering Facility: [facility] Address: [address] [address] Performed By: #### 5 7021-8 #### [facility] CLIA [id number] [address] [place] [address] [place] Platelet mean volume (Bld) [Entitic vol] 10.4 fL Normal 9.0-12.[address] [facility] Comment on above: Order Comment: Speci men Type: BLOOD SPECIMEN Ordering Facility: [facility] Address: [address] [address] Performed By: #### 5 7021-8 #### [facility] CLIA [id number] [address] [place] [address] [place] Platelets (Bld) [#/Vol] 278 10*3/uL Normal 150-400 [facility] Comment on above: Order Comment: Speci men Type: BLOOD SPECIMEN Ordering Facility: [facility] Address: [address] Performed By: #### 5 7021-8 #### [facility] CLIA [id number] [address] [place] [address] [place] RBC (Bld) [#/Vol] 4.91 10*6/uL Normal 4.20-6.00 [facility] Comment on above: Order Comment: Speci men Type: BLOOD SPECIMEN Ordering Facility: [facility] Address: [address] [place] [address] Performed By: #### 5 7021-8 #### [facility] CLIA [id number] [address] [place] [address] [facility] [place] WBC (Bld) [#/Vol] 14.33 10*3/uL High 3.70-11.00 [facility] Comment on above: Order Comment: Speci men Type: BLOOD SPECIMEN Ordering Facility: [facility] Address: [address] Performed By: #### 5 7021-8 #### [facility] CLIA [id number] [address] [place] [address] CBC panel Auto (Bld)on 02-20 Erythrocyte distribution width (RBC) [Ratio] 12.6 % Normal 11.5-15.0 [facility] Comment on above: Order Comment: Speci men Type: BLOOD SPECIMENOrdering Facility: [facility] Address: [address] [address] Performed By: #### 5 8410-2 ####[facility] [id number] [address] Hematocrit (Bld) [Volume fraction] 43.3 % Normal 39.0-51.0 [facility] Comment on above: Order Comment: Speci men Type: BLOOD SPECIMENOrdering Facility: [facility] Address: [address] Performed By: #### 5 8410-2 ####[facility] [id number] [address] [facility] Hemoglobin (Bld) [Mass/Vol] 15.1 g/dL Normal 13.0-17.0 [facility] Comment on above: Order Comment: Speci men Type: BLOOD SPECIMENOrdering Facility: [facility] Address: [address] [address] Performed By: #### 5 8410-2 ####[facility] [id number] [address] [place] MCH (RBC) [Entitic mass] 30.8 pg Normal 26.0-34.0 [facility] Comment on above: Order Comment: Speci men Type: BLOOD SPECIMENOrdering Facility: [facility] Address: [address] [place] [address] Performed By: #### 5 8410-2 ####[facility] [id number] [address] [facility] [place] MCHC (RBC) [Mass/Vol] 34.9 g/dL Normal 30.5-36.0 [facility] Comment on above: Order Comment: Speci men Type: BLOOD SPECIMENOrdering Facility: [facility] Address: [address] [place] [address] Performed By: #### 5 8410-2 ####[facility] [id number] [address] [facility] MCV (RBC) [Entitic vol] 88.4 fL Normal 80.0-100.0 [facility] Comment on above: Order Comment: Speci men Type: BLOOD SPECIMENOrdering Facility: [facility] Address: [address] [place] [address] Performed By: #### 5 8410-2 ####[facility] [id number] [address] Nucleated RBC (Bld) [#/Vol] 10*3/uL Normal <0.01 [facility] Comment on above: Order Comment: Speci men Type: BLOOD SPECIMENOrdering Facility: [facility] Address: [address] [place] [address] Performed By: #### 5 8410-2 ####[facility]IA [id number] [address] Platelet mean volume (Bld) [Entitic vol] 10.4 fL Normal 9.0-12.[address] [facility] Comment on above: Order Comment: Speci men Type: BLOOD SPECIMENOrdering Facility: [facility] Address: [address] [address] Performed By: #### 5 8410-2 ####[facility]IA [id number] [place] [id number] [facility] Platelets (Bld) [#/Vol] 248 10*3/uL Normal 150-400 [facility] Comment on above: Order Comment: Speci men Type: BLOOD SPECIMENOrdering Facility: [facility] Address: [address] [address] Performed By: #### 5 8410-2 ####[facility]ORY[facility]IA [id number] [place] [address] [facility] RBC (Bld) [#/Vol] 4.90 10*6/uL Normal 4.20-6.00 [facility] Comment on above: Order Comment: Speci men Type: BLOOD SPECIMENOrdering Facility: [facility] Address: [address] [place] [address] Performed By: #### 5 8410-2 ####[facility]IA [id number] [address] [facility] [place] WBC (Bld) [#/Vol] 14.74 10*3/uL High 3.70-11.00 [facility] Comment on above: Order Comment: Speci men Type: BLOOD SPECIMENOrdering Facility: [facility] Address: [address] [place] [address] Performed By: #### 5 8410-2 ####[facility]ORY[facility]IA [id number] [address] CNDSon 02-20-2023 CNDS HNO ID: [id number] Author: Jv Lucas APRN.CHAPERON Service: Trauma Author Type: Nurse Practitioner Type: Discharge Summary Filed: 02/20/2023 2:23 PM Note Text: Attestation signed by Gildardo Horton MD at 02/20/2023 3:20 PM Agree with JUNIOR ANALYST documentation. DC with outpatient followup for staple removal Gildardo Horton MD 02/20/2023 3:20 PM DISCHARGE SUMMARY PATIENT NAME: Francisco Crenshaw ADMISSION DATE: 02/19/2023 DISCHARGE DATE: 02/20/2023 Attending Physician: Radha Camarillo MD Code Status: Not on file Highest Readmission Risk Score: 11 The 30 day readmissions risk score is derived from an internally validated risk model which evaluates patient level characteristics, utilization history, medication orders and lab results up until the day of discharge. Patients with a score of 40 or above are considered highest risk for readmission. Specific patient level drivers will be listed at the bottom of the summary. Reason for Hospitalization: Fall with SAH, intracranial hemorrhage and nondisplaced skull fracture Diagnosis: Principal Problem: Intracranial hemorrhage (HCC) (POA: Yes) Active Problems: Closed fracture of right side of occipital bone (HCC) (POA: Yes) Scalp laceration (POA: Yes) Diabetes mellitus type 1, controlled, without complications (HCC) (POA: Yes) Hyperlipidemia (POA: Yes) Obesity (BMI 30-39.9) (POA: Yes) Obesity, Class I, BMI 30-34.9 (POA: Yes) Resolved Problems: * No resolved hospital problems. * Hospital Course as Described to the Patient: You were admitted for Fall with SAH, intracranial hemorrhage and nondisplaced skull fracture. Patient is 47 year old male who presented to the ER from [facility] after sustaining a head injury. The patient states he was climbing down an area of large rocks when he believes he stepped on one that was wet causing him to slip and fall hitting the back of his head. He sustained a small laceration to his posterior scalp. He denies loss of consciousness and denies use of any blood thinners at home. The patient and his drove approximately 45 minutes back to [place] where he was evaluated at [facility]. At the [facility], he was found to have worsening headache with nausea AND vomiting therefore he was sent to [facility] for further work-up. In the ER, he had his laceration repaired with aakash. Lutsen need removed in [address] revealed traumatic bifrontal and bitemporal hemorrhagic contusions with trace associated subarachnoid blood. No significant mass effect. Non-depressed right occipital fracture. Admitted to ICU with close monitoring. Repeat CT completed next morning showing Stable trace bilateral subarachnoid hemorrhage as above. 2 previously described bifrontal and bitemporal contusions are less conspicuously seen compared to prior. No new acute finding. Neurosurgery saw the patient and signed off. Recommends keppra x 2 weeks. Patient tolerated regular diet and ambulating well. Patient stable for discharge. May follow up with neurosurgery as and outpatient and surgery for staple removal. Transitions of Care Critical Issues: SPECIALIST FOLLOW-UP: Neurosurgery LABS AND PROCEDURES PENDING AT DISCHARGE: No pending results. Additional Provider to Provider Information: Principal Problem: Intracranial hemorrhage (HCC) Active Problems: Closed fracture of right side of occipital bone (HCC) Scalp laceration Diabetes mellitus type 1, controlled, without complications (HCC) Hyperlipidemia Obesity (BMI 30-39.9) Obesity, Class I, BMI 30-34.9 Resolved Problems: * No resolved hospital problems. * Operations During Hospitalization: None Procedures During Hospitalization: CT Scan Consulting Teams During Hospitalization: Treatment Team: Attending Provider: Radha Camarillo MD Consulting: Joslyn Turcios MD Consulting: Beth Pastrana MD None Patient Condition @ Discharge: Good Discharge Disposition: Home/Self Care Discharge Physical Exam: VITAL SIGNS: BP 126/58 Pulse 66 Temp 36.9 ?C (98.5 ?F) (Oral) Resp 15 Ht 170.2 cm (5' 7) Wt 96.4 kg (212 lb 8.4 oz) SpO2 93% BMI 33.29 kg/m? See progress note from 02/20/2023 Information Provided to Patient: Supplies or Equipment I need Supplies or Equipment Diet: Resume pre-hospital diet Activity: Weight bearing as tolerated No driving while on narcotics Wound/Surgical Site Care: Leave open to air. ALLERGIES No Known Allergies Discharge Medications: Medication List START taking these medications acetaminophen 325 mg-caffeine 40 mg-butalbital 50 mg per tablet Commonly known as: FIORICET Take 1 tablet by mouth every 6 hours as needed for headache for up to 5 days. levETIRAcetam 500 mg tablet (more content not included)... Normal [facility] CONSULTon 02-20-2023 CONSULT HNO ID: [id number] Author: Marcos Vazquez APRN.CHAPERON Service: Neurosurgery Author Type: Nurse Practitioner Type: Consults Filed: 02/20/2023 1:18 PM Note Text: Attestation signed by Joel Cervantes MD at 02/22/2023 8:31 AM I reviewed and agree with Kaushik solis CONSULT: NEUROSURGERY PATIENT NAME: Francisco Crenshaw DATE of SERVICE: 02/20/2023 TIME of SERVICE: 7:45 AM REASON FOR CONSULT: Traumatic SAH REQUESTING PHYSICIAN: Heath Hemphill MD PRIMARY CARE PHYSICIAN: Medicine, Comprehensive Internal HPI: Mr. Crenshaw is a 47 year old male who presents to [facility] ED s/p fall while at [facility]. He was with his when he slipped on a wet rock and his feet went out from under him hitting the back of his head. He states he had approx 30 seconds of confusion afterwards. He was brought into the ED for further evaluation. His initial head CT showed trace SAH. Imaging reviewed by Dr. Cervantes. No acute neurosurgical intervention recommended. He was admitted to ICU overnight for strict BP control, frequent neuro checks, and repeat head CT for this AM. Patient seen and examined at bedside this AM. He is resting comfortably in bed. Pain controlled at this time. No overnight events. He denies chest pain, shortness of breath, nausea, vomiting, diarrhea. He complains of some headaches and dizziness with quick movements. He denies any visual changes including double vision, blurry vision. He denies any seizure-like activity or weakness. He is AANDOx3, follows commands, moves all extremities x4. Vitals stable. Neuro intact. ASSESSMENT AND PLAN: - 47 year old male who presents with SAH - No neurosurgical intervention recommended - Repeat imaging reviewed by Dr. Cervantes - BP control - PT/OT - Keppra BID - May decrease neuro checks to Q4H - Continue medical management per the primary trauma/ICU team - Please call with any questions - We will sign off - Case and POC discussed with Dr. Cervantes, trauma CHAPERON, RN, and at bedside PAST MEDICAL HISTORY: PAST MEDICAL HISTORY Diagnosis Date Diabetes (HCC) Hypercholesteremia PAST SURGICAL HISTORY: No past surgical history on file. FAMILY HISTORY: No family history on file. SOCIAL HISTORY: Social History Tobacco Use Smoking status: Never Smokeless tobacco: Never Vaping Use Vaping Use: Never used Substance Use Topics Alcohol use: Yes Comment: Occasionally Drug use: Never MEDICATIONS: Prior to Admission Medications: DEXCOM G6 SENSOR anat, as directed., Disp: , Rfl: , 02/20/2023 DEXCOM G6 TRANSMITTER anat, as directed., Disp: , Rfl: , 02/20/2023 rosuvastatin (CRESTOR) 20 mg tablet, , Disp: , Rfl: , 02/19/2023 NOVOLOG U-100 INSULIN ASPART 100 unit/mL, USE UP TO 130 UNITS DAILY SUBCUTANEOUSLY VIA INSULIN PUMP, Disp: , Rfl: , 02/20/2023 atorvastatin (LIPITOR) 40 mg tablet, Take 40 mg by mouth once daily. (Patient not taking: Reported on 02/20/2023), Disp: , Rfl: , Not Taking INSULIN ASPART (NOVOLOG SUBCUTANEOUS), Inject subcutaneously. Per sliding scale (Patient not taking: Reported on 02/19/2023), Disp: , Rfl: Current Facility-Administered Medications Medication Dose Route Frequency levETIRAcetam 1,000 mg injection (KEPPRA) 1,000 mg INTRAVENOUS BID dextrose 40 % 15 g 15 g ORAL PRN Or glucagon 1 mg injection 1 mg INTRAMUSCULAR PRN Or dextrose 10% iv bolus 12.5 g INTRAVENOUS PRN ondansetron (PF) 4 mg injection (ZOFRAN) 4 mg INTRAVENOUS q 6 H PRN bacitracin 500 unit/gram topical ointment TOPICAL BID hydrALAZINE 10 mg injection (APRESOLINE) 10 mg INTRAVENOUS q 6 H PRN labetalol 10 mg injection syringe (NORMODYNE) 10 mg INTRAVENOUS q 2 H PRN acetaminophen 325 mg-caffeine 40 mg-butalbital 50 mg 1 tablet (FIORICET) 1 tablet ORAL q 6 H PRN ALLERGIES: ALLERGIES No Known Allergies PHYSICAL EXAM: Patient Vitals for the past 24 hrs: BP Temp Temp src Pulse Resp SpO2 Height Weight 02/20/23 0800 143/73 -- -- 85 22 95 % -- -- 02/20/23 0700 132/63 -- -- 80 19 92 % -- -- 02/20/23 0600 169/77 -- -- 85 18 93 % -- -- 02/20/23 0500 163/71 -- -- 89 22 92 % -- -- 02/20/23 0400 157/70 36.9 ?C (98.5 ?F) Oral 88 20 92 % -- -- 02/20/23 0300 160/74 -- -- 81 20 94 % -- -- 02/20/23 0211 155/73 -- -- 71 -- -- -- -- 02/20/23 0108 -- -- -- -- -- -- 170.2 cm (5' 7) 96.4 kg (212 lb 8.4 oz) 02/19/23 2359 152/83 -- -- 73 17 96 % -- -- 02/19/23 2230 150/86 -- -- 78 17 96 % -- -- 02/19/23 2058 159/88 36.9 ?C (98.4 ?F) Oral 71 18 96 % 170.2 cm (5' 7) 98.4 kg (217 lb) Body mass index is 33.29 kg/m?. GENERAL: Alert, awake, opens eyes spontaneously, cooperative, mild distress, normal voice, speech clear, normal affect EYES: PERRLA 3 mm brisk RESP: RA, no respiratory distress, regular breathing, rate and effort CARDIAC: Regular rate and rhythm, peripheral puls (more content not included)... Normal [facility] CONSULT HNO ID: [id number] Author: Arnold Ponce APRN.CNP Service: Critical Care Author Type: Nurse Practitioner Type: Consults Filed: 02/20/2023 2:05 AM Note Text: [facility] PULMONARY [facility] CRITICAL CARE SERVICE DATE: February 19, 2023 SERVICE TIME: 2344 Consulting Doctor: Dr. Marquise MD CHIEF COMPLAINT: Mechanical Fall ; Bifrontal/Bitemporal Hemorrhagic Contusions HPI: This is a 47-year-old male w/t a PMHx significant for DM Type-I (on insulin pump) and HTN who presents from [facility] this evening w/t complaints of a fall w/t injury to his head. Reportedly, the [place] around [facility] with his . The patient states he was climbing down an area of large rocks when he believes he stepped on one that was wet causing him to slip and fall hitting the back of his head. He sustained a small laceration to his posterior scalp. He denies loss of consciousness and denies use of any blood thinners at home. The patient and his drove approximately 45 minutes back to [place] where he was evaluated at [facility]. At the [facility], he was found to have worsening headache with nausea AND vomiting therefore he was sent to [facility] for further work-up. In the ED, patient was awake, alert and oriented. Hemodynamic stable. There was a noted small laceration to his posterior scalp with active bloody oozing. Given the above, a trauma care was called overhead. Patient sent for an emergent CT head/cervical spine which ultimately demonstrated traumatic bifrontal and bitemporal hemorrhagic contusions with trace subarachnoid blood. No mass effect. There is also a nondisplaced right occipital fracture. Neurosurgery was notified, currently recommending repeat head CT in the a.m. with frequent neurological checks. Lab work unremarkable. Given the above, the patient was admitted to the ICU via the trauma service with consultation to the critical care service. Repeat head CT ordered in the AM. Strict hemodynamic control. Frequent neurochecks. Please orders. PAST MEDICAL HISTORY: SEE CHRONIC ISSSUES: PAST MEDICAL HISTORY Diagnosis Date Diabetes (HCC) Hypercholesteremia No past surgical history on file. No family history on file. Social History Tobacco Use Smoking status: Never Smokeless tobacco: Never Vaping Use Vaping Use: Never used Substance Use Topics Alcohol use: Yes Comment: Occasionally Drug use: Never HOME MEDICATIONS: DEXCOM G6 SENSOR devias directed.Disp: Rfl: DEXCOM G6 TRANSMITTER devias directed.Disp: Rfl: rosuvastatin (CRESTOR) 20 mg tabletDisp: Rfl: NOVOLOG U-100 INSULIN ASPART 100 unit/mLUSE UP TO 130 UNITS DAILY SUBCUTANEOUSLY VIA INSULIN PUMPDisp: Rfl: atorvastatin (LIPITOR) 40 mg tabletTake 40 mg by mouth once daily.Disp: Rfl: (Patient not taking: Reported on 02/19/2023) INSULIN ASPART (NOVOLOG SUBCUTANEOUS)Inject subcutaneously. Per sliding scaleDisp: Rfl: (Patient not taking: Reported on 02/19/2023) INPATIENT MEDICATIONS: Current Facility-Administered Medications Medication Dose Route Frequency levETIRAcetam 1,000 mg injection (KEPPRA) 1,000 mg INTRAVENOUS BID dextrose 40 % 15 g 15 g ORAL PRN Or glucagon 1 mg injection 1 mg INTRAMUSCULAR PRN Or dextrose 10% iv bolus 12.5 g INTRAVENOUS PRN acetaminophen 650 mg tab(s) (TYLENOL) 650 mg ORAL QID oxyCODONE IR 5 mg tab(s) (ROXICODONE) 5 mg ORAL q 6 H PRN ondansetron (PF) 4 mg injection (ZOFRAN) 4 mg INTRAVENOUS q 6 H PRN famotidine 20 mg tab(s) (PEPCID) 20 mg ORAL BID AC bacitracin 500 unit/gram topical ointment TOPICAL BID ALLERGIES: Patient has no known allergies. COMPLETE REVIEW OF SYSTEMS: Review of Systems Constitutional: Negative for chills, fever and weight loss. HENT: Negative for congestion, hearing loss and tinnitus. Eyes: Negative for blurred vision, double vision and photophobia. Respiratory: Negative for sputum production and shortness of breath. Cardiovascular: Negative for chest pain and palpitations. Gastrointestinal: Positive for nausea and vomiting. Negative for abdominal pain, constipation and diarrhea. Genitourinary: Negative for dysuria and frequency. Musculoskeletal: Positive for falls and neck pain. Skin: Negative for itching and rash. Neurological: Positive for dizziness and headaches. Negative for focal weakness, loss of consciousness and weakness. Endo/Heme/Allergies: Negative for environmental allergies and polydipsia. Psychiatric/Behavioral : Negative for hallucinations and substance abuse. VITALS: 02/19/23 2058 02/19/23 2230 02/19/23 2359 02/20/23 0108 BP: 159/88 150/86 152/83 Pulse: 71 78 73 Resp: 18 17 17 Temp: 36.9 ?C (98.4 ?F) TempSrc: Oral SpO2: 96% 96% 96% Weight: 98.4 kg (217 lb) 96.4 kg (212 lb 8.4 oz) Height: 170.2 cm (5' 7) 170.2 cm (5' 7) PHYSICAL EXAM: General: Alert, awake. Appears comfortable. NAD. Skin: Warm, dry. Posterior scalp lacer (more content not included)... Normal [facility] CT BRAIN WO IVCONon 02-21-20 CT BRAIN WO IVCON * * *Final Report* * * DATE OF EXAM: Feb 20 2023 6:05AM [facility] 0504 - CT BRAIN WO IVCON / PROCEDURE REASON: Head trauma, moderate-severe * * * * Physician Interpretation * * * * EXAMINATION: CT BRAIN WO IVCON CLINICAL HISTORY: Head trauma TECHNIQUE: Serial axial images without IV contrast were obtained from the vertex to the foramen magnum. MQ: CTBWO_3 CT Radiation dose: Integrated Dose-Length Product (DLP) for this visit = 770.97 mGy*cm CT Dose Reduction Employed: Automated exposure control(AEC) and iterative recon COMPARISON: 02/19/2023 CT head RESULT: Post-operative change: None. Acute change: No evidence of new acute infarct or other acute parenchymal process. Hemorrhage: Stable trace subarachnoid hemorrhage along the bilateral frontal, temporal, and parietal convexities. Previously described bifrontal and bitemporal contusions are less conspicuously seen compared to prior. No new hemorrhage. ECASS hemorrhagic transformation score: Not Applicable Mass Lesion / Mass Effect: There is no evidence of an intracranial mass or extraaxial fluid collection. No significant mass effect. Chronic change: None apparent. Parenchyma: There is no significant volume loss. The brain parenchyma is otherwise within normal limits for age. Ventricles: The ventricles are within normal limits of size and configuration for age. Paranasal sinuses and skull base: The visualized paranasal sinuses are grossly clear. The skull base and imaged soft tissues are unremarkable. Felt Carbonizer (topogram) images: No additional findings. IMPRESSION: Stable trace bilateral subarachnoid hemorrhage as above. 2 previously described bifrontal and bitemporal contusions are less conspicuously seen compared to prior. No new acute finding. Hvac Service Tech: TRACI Transcribe Date/Time: Feb 20 2023 7:11A Dictated by : SAI GRAVES MD This examination was interpreted and the report reviewed and electronically signed by: SAI GRAVES MD on Feb 20 2023 7:15AM EST [id number] [facility] CT BRAIN WO IVCON * * *Final Report* * * DATE OF EXAM: Feb 19 2023 11:14PM [facility] 0504 - CT BRAIN WO IVCON / PROCEDURE REASON: Head trauma, moderate-severe * * * * Physician Interpretation * * * * EXAMINATION: CT BRAIN WO IVCON CLINICAL HISTORY: Head trauma TECHNIQUE: Serial axial images without IV contrast were obtained from the vertex to the foramen magnum. MQ: CTBWO_3 CT Radiation dose: Integrated Dose-Length Product (DLP) for this visit = 1047.72 mGy*cm CT Dose Reduction Employed: Automated exposure control(AEC) and iterative recon COMPARISON: None. RESULT: Post-operative change: None. Acute change: Subtle hypoattenuation of the anterior inferior bilateral temporal lobes and anterior inferior bilateral frontal lobes with trace adjacent subarachnoid blood products. Mass Lesion / Mass Effect: There is no evidence of an intracranial mass or extraaxial fluid collection. No significant mass effect. Chronic change: None apparent. Parenchyma: There is no significant volume loss. The brain parenchyma is otherwise within normal limits for age. Ventricles: The ventricles are within normal limits of size and configuration for age. Paranasal sinuses and skull base: The visualized paranasal sinuses are grossly clear. Subtle nondepressed right occipital fracture Felt Carbonizer (topogram) images: Unremarkable. IMPRESSION: Findings compatible with traumatic bifrontal and bitemporal hemorrhagic contusions with trace associated subarachnoid blood. No significant mass effect. Nondepressed right occipital fracture URGENT RESULTS Acuity: Urgent Communication: Communicated with NILSON on 02/19/2023 11:25 PM via verbal communication. Hvac Service Tech: TRACI Transcribe Date/Time: Feb 19 2023 11:18P Dictated by : BEBETO RAI MD This examination was interpreted and the report reviewed and electronically signed by: BEBETO RAI MD on Feb 19 2023 11:27PM EST [id number] [facility] CT CERVICAL SPINE WO IVCONon 02-20-2023 CT CERVICAL SPINE WO IVCON * * *Final Report* * * DATE OF EXAM: Feb 19 2023 11:14PM [facility] 0505 - CT CERVICAL SPINE WO IVCON / PROCEDURE REASON: Spine fracture, cervical, traumatic * * * * Physician Interpretation * * * * EXAMINATION: CT CERVICAL SPINE WO IVCON CLINICAL HISTORY: Spine fracture, cervical, traumatic TECHNIQUE: Spiral, high resolution axial unenhanced images were obtained from the skull base to the cervicothoracic junction with sagittal and coronal planar reconstructions. MQ: CTCSPWO_5 CT Radiation dose: Integrated CT Dose-Length Product (DLP) for this visit = 1047.72 mGy*cm CT Dose Reduction Employed: Automated exposure control(AEC) and iterative recon COMPARISON: None. RESULT: Counting reference: Craniocervical junction. Anatomic Variants: None. Felt Carbonizer (topogram) images: No additional findings. Alignment: Alignment is anatomic. Craniocervical junction: Craniocervical junction is normal. Osseous structures/fracture: No evidence of a lytic or blastic process in the visualized spine. No evidence of acute or chronic fracture. Cervical soft tissues: The paraspinal soft tissues are within normal limits. Degenerative changes: No significant degenerative changes. IMPRESSION: 1. No evidence of acute cervical spine fracture or traumatic malalignment. Anatomic Variant: None. Assume 7 cervical vertebrae with counting from the craniocervical junction. Hvac Service Tech: TRACI Transcribe Date/Time: Feb 19 2023 11:25P Dictated by : PETRONA OSUNA MD This examination was interpreted and the report reviewed and electronically signed by: PETRONA OSUNA MD on Feb 19 2023 11:30PM EST [id number] [facility] ED NOTEon 02-20-2023 ED NOTE HNO ID: [id number] Author: Augustine, Inderjit, RN Service: Nursing Author Type: Registered Nurse Type: ED Notes Filed: 02/20/2023 12:50 AM Note Text: Transported to ICU by this RN and Madison Senior Java Web Application Developer on monitor with follow ing. [facility] ED NOTE HNO ID: [id number] Author: Inderjit Bradshaw RN Service: Nursing Author Type: Registered Nurse Type: ED Notes Filed: 02/20/2023 12:50 AM Note Text: Report to Chastity in POLICE CLERK. Eric w/neisha Khan/Allan. Speech clear. Equal grasps. Pupils equal round reactive to light 5mm. AZAR 5/10 with photosensitivity. Normal [facility] ED PROV NOTEon 02-20-2023 ED PROV NOTE HNO ID: [id number] Author: Masha Mckenzie PA-C Service: Emergency Medicine Author Type: Physician Manager Behavioral Type: ED Provider Notes Filed: 02/20/2023 12:24 AM Note Text: Attestation signed by Heath Hemphill MD at 02/20/2023 12:29 AM Attending note: Patient slipped fell hit his head on a rock, no LOC, mentation appropriate at present time. Exam: Awake alert, neuro intact, occipital scalp laceration appreciated ER course: CT BRAIN WO IVCON Final Result IMPRESSION: Findings compatible with traumatic bifrontal and bitemporal hemorrhagic contusions with trace associated subarachnoid blood. No significant mass effect. Nondepressed right occipital fracture URGENT RESULTS Acuity: Urgent Communication: Communicated with NILSON on 02/19/2023 11:25 PM via verbal communication. Hvac Service Tech: TRACI Transcribe Date/Time: Feb 19 2023 11:18P Dictated by : BEBETO RAI MD This examination was interpreted and the report reviewed and electronically signed by: BEBETO RAI MD on Feb 19 2023 11:27PM EST CT CERVICAL SPINE WO IVCON Final Result IMPRESSION: 1. No evidence of acute cervical spine fracture or traumatic malalignment. Anatomic Variant: None. Assume 7 cervical vertebrae with counting from the craniocervical junction. Hvac Service Tech: TRACI Transcribe Date/Time: Feb 19 2023 11:25P Dictated by : PETRONA OSUNA MD This examination was interpreted and the report reviewed and electronically signed by: PETRONA OSUNA MD on Feb 19 2023 11:30PM EST I notified the trauma surgeon of the CAT scan report EMG would like the patient admitted to ICU. I subsequently had spoken with the ICU nurse practitioner who is here seeing the patient, I also spoke with the on-call neurosurgeon. Patient will be admitted to the ICU per trauma request he will be given a prophylactic dose of IV Keppra. Impression: 1. Acute traumatic intracranial hemorrhage/bifrontal and bitemporal cerebral contusions 2. Acute nondisplaced occipital skull fracture status post fall Critical care time of 45 minutes in light of the numerous consultations and management of intracranial hemorrhage Signature: Heath Hemphill MD Date: 02/20/2023 Time: 12:28 AM ED Provider Note Patient Name: Francisco Crenshaw : 1975 SERVICE DATE: 02/19/23 History Patient presents with: Fall Scalp Laceration: Pt fell and hit back of head on rock. Lac to back of head, bleeding controlled. Pt reports nausea. [facility], was [facility] here for further evaluation. (+) Hit head (-) blood thinners (-) LOC The patient, a 47-year-old male presents emergency department for evaluation of a head injury. The patient states around 5:30 PM he had been up at [facility], walking along a brick wall when he stepped on an uneven/slippery surface ultimately causing his feet to go out from underneath him striking the back of his head on the rock in which she sustained a laceration. He denies any loss of consciousness. He had some pain locally to the area initially. He applied ice to the area and cleaned the wound. Upon the drive home he started experiencing a headache and nausea. He was seen and evaluated at [facility] but was ultimately sent here for further evaluation. Upon arrival into the emergency department his nausea had worsened and he has since started throwing up. He denies any visual disturbance, neck pain, back pain, chest pain, numbness, tingling, weakness. He had felt fine prior to his fall. He is not on any blood thinning medication. PAST MEDICAL HISTORY Diagnosis Date Diabetes (HCC) Hypercholesteremia No past surgical history on file. No family history on file. Social History Tobacco Use Smoking status: Never Smokeless tobacco: Never Vaping Use Vaping Use: Never used Substance and Sexual Activity Alcohol use: Yes Comment: Occasionally Drug use: Never Sexual activity: Not on file ALLERGIES No Known Allergies Review of Systems Respiratory: Negative for shortness of breath. Cardiovascular: Negative for chest pain. Gastrointestinal: Positive for nausea and vomiting. Negative for abdominal pain and diarrhea. Musculoskeletal: Negative for back pain and neck pain. Skin: Positive for wound. Neurological: Positive for headaches. Negative for speech difficulty, weakness, light-headedness and numbness. Physical Exam Vitals [02/19/232057] BP Pulse Temp Temp src Resp SpO2 Weight Height 159/88 71 36.9 ?C (98.4 ?F) Oral 18 96 % 98.4 kg (217 lb) 1.702 m (5' 7) Physical Exam Constitutional: Appearance: Normal appearance. HENT: Head: Normocephalic. Comments: Dried blood noted to the hair, posterior occipital scalp area. Soft tissue laceration. He has tenderness to palpation of this (more content not included)... Normal [facility] HISTORY PHYSICALon 3 HISTORY PHYSICAL HNO ID: [id number] Author: Radha Camarillo MD Service: General Surgery Author Type: Physician Type: HANDP Filed: 02/20/2023 12:12 AM Note Text: Trauma History and Physical Patient arrival date: 02/19/2023 Patient arrival time: 20:44 Category: III Injury time: ~1800 Trauma team arrival time: 2345 SUBJECTIVE: Subjective HPI/Chief complaint: 47 year old male presenting after ground-level fall mechanical. GCS at Scene was 15. Patient was walking outside has been little on block in the back of his head. Patient denies any loss consciousness. She denies hitting anything else. He was able to open ambulate afterwards. He drove from [facility] to [facility] [place] ( approximately 45-[address]). Patient developed significant worsening headache while at [facility] [place] and had nausea and emesis. Facility did not have CT scan available and he was sent to [facility] ED for further work-up. His work-up here included a CT head and neck which showed intracranial hemorrhage and a right occipital fracture of skull fracture. Patient endorses headache. Worse in posterior head. Denies any changes in vision, dysphagia, dysphasia, neck pain, chest pain, shortness breath, abdominal pain, pelvic pain, pain in extremities, numbness, tingling. Patient denies any blood thinners, alcohol use, coagulations orders ALLERGIES No Known Allergies Immunization History Administered Date(s) Administered COVID-19 original vaccine, age 12+ yr, monovalent ([place] - PURPLE TOP) 03/05/2021 05/28/2021 tetanus diphtheria pertussis (Tdap) vaccine, age 7+ yr (ADACEL, BOOSTRIX) 02/19/2023 PAST MEDICAL HISTORY Diagnosis Date Diabetes (HCC) Hypercholesteremia No past surgical history on file. Social History Tobacco Use Smoking status: Never Smokeless tobacco: Never Vaping Use Vaping Use: Never used Substance Use Topics Alcohol use: Yes Comment: Occasionally Drug use: Never Review of Systems ROS Denies any changes in vision, dysphagia, dysphasia, neck pain, chest pain, shortness breath, abdominal pain, pelvic pain, pain in extremities, numbness, tingling OBJECTIVE: Objective PRIOR TO ARRIVAL: No Loss of Consciousness PRIMARY SURVEY AIRWAY: Patent airway and speaking in full sentences BREATHING: Breathing is symmetrical and unlabored CIRCULATION: Pulses are palpable. Heart rate 96. Systolic BP: 152/83 DISABILITY: Eye: 4=Spontaneous Verbal: 5=Oriented and Converses Motor: 6=Obeys Commands Total GCS: 15=4 EXPOSE / ENVIRONMENT: Warm Blankets PROCEDURES: posterior scalp lac repair SECONDARY SURVEY VITALS: BP 152/83 Pulse 73 Temp (Src) 98.4 (Oral) Resp 17 Ht 5' 7 (1.70m) Wt 217 lb (98.4kg) SpO2 96% BMI 33.98 kg/(m2). O2 Therapy: Room Air Temp (24hrs), Av.9 ?C (98.4 ?F), Min:36.9 ?C (98.4 ?F), Max:36.9 ?C (98.4 ?F) O2 Therapy: Room Air Genl: No acute distress, alert Head/Face: Normocephalic. Approximately 2 to 3 cm laceration posterior occipital region. Eyes: Pupils brisk. Sclera not icteric, not injected Neck: No midline tenderness. Supple Resp: Lungs clear bilaterally. Chest rise is symmetrical and respirations unlabored. Chest without tenderness or crepitus. CVS: RRR. Strong pulses and good cap refill GI: Abdomen is soft, non-tender, not distended. No peritonitis. Back: No midline tenderness on palpation. No evidence of cutaneous trauma. MSK: BRUNO. Extremities without cyanosis or edema. Normal ROM x 4. Skin: Warm and dry. Normal color for ethnicity. Neuro: AANDOx3. Strength and sensation intact. GCS15. Psych: Normal mood. Normal affect. RADIOLOGICAL/OTHER TEST DATA: CT BRAIN WO IVCON Final Result IMPRESSION: Findings compatible with traumatic bifrontal and bitemporal hemorrhagic contusions with trace associated subarachnoid blood. No significant mass effect. Nondepressed right occipital fracture URGENT RESULTS Acuity: Urgent Communication: Communicated with NILSON on 02/19/2023 11:25 PM via verbal communication. Hvac Service Tech: TRACI Transcribe Date/Time: Feb 19 2023 11:18P Dictated by : BEBETO RAI MD This examination was interpreted and the report reviewed and electronically signed by: BEBETO RAI MD on Feb 19 2023 11:27PM EST CT CERVICAL SPINE WO IVCON Final Result IMPRESSION: 1. No evidence of acute cervical spine fracture or traumatic malalignment. Anatomic Variant: None. Assume 7 cervical vertebrae with counting from the craniocervical junction. Hvac Service Tech: TRACI Transcribe Date/Time: Feb 19 2023 11:25P Dictated by : PETRONA OSUNA MD This examination was interpreted and the report reviewed and electronically signed by: PETRONA OSUNA MD on Feb 19 2023 11:30PM EST Labs: No results for input(s): BODSITE, CTYPE, PH, PCO2, PO2, BE, HCO3, CO2CT, O2HB, COHB, MHGB, TEMP, PHTC, PCO2T, PO2T, O2AD in the last 72 hours. Recent Labs 02/19/23 2227 CR (more content not included)... [facility] CNOVon 02-19-2023 CNOV Office Visit (UCMNCA ) FRANCISCO CRENSHAW ([id number]) 1975 M Date Time Provider Department 02/19/23 7:40 PM [facility] During your visit today, we recorded the following information about you: Temperature Pulse Respiration Blood pressure 98.2 degrees 84/minute 24/minute 166/82 Weight 98.3 kg Thad Nance APRN.CNP 02/19/2023 8:30 PM Signed Proceed to the ER immediately. Thad Nance APRN.CNP 02/19/2023 8:36 PM Signed Francisco Medina Debi is a 47 year old male who presents with Laceration to the Head Due to Head Injury (Fell today at [facility]. States slipped on a rock and hit head against a large boulder. Denies loss of consciousness. Is starting to feel fatigued. Tetanus status is unknown. Wound measures 3 cm. ) As above. Patient hit his head today. He is currently complaining of nausea and dizziness. States he is fatigued and sleepy. PAST MEDICAL HISTORY Diagnosis Date Diabetes (HCC) Hypercholesteremia There is no problem list on file for this patient. Current Outpatient Medications Medication Sig Dispense Refill DEXCOM G6 SENSOR anat as directed. DEXCOM G6 TRANSMITTER anat as directed. rosuvastatin (CRESTOR) 20 mg tablet NOVOLOG U-100 INSULIN ASPART 100 unit/mL USE UP TO 130 UNITS DAILY SUBCUTANEOUSLY VIA INSULIN PUMP atorvastatin (LIPITOR) 40 mg tablet Take 40 mg by mouth once daily. (Patient not taking: Reported on 02/19/2023) INSULIN ASPART (NOVOLOG SUBCUTANEOUS) Inject subcutaneously. Per sliding scale (Patient not taking: Reported on 02/19/2023) No current facility-administered medications for this visit. Social History Tobacco Use Smoking status: Never Smokeless tobacco: Never Vaping Use Vaping Use: Never used Substance Use Topics Alcohol use: Yes Comment: Occasionally Drug use: Never Alcohol Use: Yes (Occasionally) Tobacco Use: Never History reviewed. No pertinent family history. Review of Systems Eyes: Negative for blurred vision and double vision. Gastrointestinal: Positive for nausea. Neurological: Positive for dizziness, weakness and headaches. Negative for loss of consciousness. BP 166/82 Pulse 84 Temp 98.2 Resp 24 Wt 216 lb 12.8 oz (98.3kg) SpO2 97% Physical Exam Constitutional: Appearance: Normal appearance. HENT: Head: Contusion present. Comments: 3 cm full-thickness laceration is present. Neurological: Mental Status: He is alert and oriented to person, place, and time. GCS: GCS eye subscore is 4. GCS verbal subscore is 5. GCS motor subscore is 6. Coordination: Romberg sign positive. Ugywsf-Rgcz-Ofhfde Test abnormal. Gait: Gait abnormal. ASSESSMENT/PLAN: 1. Contusion of head, unspecified part of head, initial encounter - ICD9: 920, ICD10: S00.93XA (primary diagnosis) 2. Laceration of other part of head without foreign body, initial encounter - ICD9: 873.0, ICD10: S01.81XA During my exam when I had the patient's stand to perform a Romberg test he became quite dizzy, near syncopal. He is feeling increasingly fatigued and nauseous. I am concerned that he requires a head CT. He was driven by his . He would like her to drive her to the ER. Thad Nance Referring Provider: SELF [200] Allergies As of Date: 02/19/2023 (No Known Allergies) Date Reviewed: 02/19/2023 Reviewed by: Marcia Garcia LPN - Fully Assessed Reason for Visit: Laceration to the Head Due to Head Injury [Other] Cmt: Fell today at [facility]. States slipped on a rock and hit head against a large boulder. Denies loss of consciousness. Is starting to feel fatigued. Tetanus status is unknown. Wound measures 3 cm. Primary Visit Diagnosis:Contusion of head, unspecified part of head, initial encounter [S00.93XA] Other Visit Diagnosis:Laceration of other part of head without foreign body, initial encounter [S01.81XA] Prescriptions as of 02/19/2023 - DEXCOM G6 SENSOR anat as directed. - DEXCOM G6 TRANSMITTER anat as directed. - rosuvastatin (CRESTOR) 20 mg tablet - NOVOLOG U-100 INSULIN ASPART 100 unit/mL USE UP TO 130 UNITS DAILY SUBCUTANEOUSLY VIA INSULIN PUMP - atorvastatin (LIPITOR) 40 mg tablet Take 40 mg by mouth once daily. - INSULIN ASPART (NOVOLOG SUBCUTANEOUS) Inject subcutaneously. Per sliding scale Problem List As Of Date: 02/19/2023 (None) Other instructions from your clinician: Proceed to the ER immediately. Encounter Status:Closed by THAD NANCE on 02/19/23 [facility] ED NOTEon 02-19-2023 ED NOTE HNO ID: [id number] Author: Odette Tavarez, KADEN Service: ? Author Type: Registered Nurse Type: ED Notes Filed: 02/19/2023 9:35 PM Note Text: Pt unable to tolerate C collar, Nilson HOYT notified. [facility] ED Triage Noteon 02-19-2023 ED Triage Note HNO ID: [id number] Author: Parth Devine PA-C Service: ? Author Type: Physician Manager Behavioral Type: ED Triage Notes Filed: 02/19/2023 9:19 PM Note Text: ED INTAKE NOTE Patient Name: Francisco Crenshaw Service Date: 02/19/23 BRIEF HPI: Standing today on slippery rock when he slipped and fell backwards struck the back of his head. He has laceration to the posterior scalp. No loss of consciousness. But complains of significant nausea with near vomiting. Patient is type I diabetic. Last tetanus is unknown. BRIEF EXAM: Sitting in wheelchair holding an emesis bag Laceration noted to occipital scalp INTAKE WORKUP: CT brain, CT C-spine, IV Zofran, tetanus SIGNATURE: Parth Devine PA-C [facility] HISTORY PHYSICALon HISTORY PHYSICAL HNO ID: [id number] Author: Thad Nance APRN.CNP Service: ? Author Type: Nurse Practitioner Type: HANDP Filed: 02/19/2023 8:36 PM Note Text: Francisco Crenshaw is a 47 year old male who presents with Laceration to the Head Due to Head Injury (Fell today at [facility]. States slipped on a rock and hit head against a large boulder. Denies loss of consciousness. Is starting to feel fatigued. Tetanus status is unknown. Wound measures 3 cm. ) As above. Patient hit his head today. He is currently complaining of nausea and dizziness. States he is fatigued and sleepy. PAST MEDICAL HISTORY Diagnosis Date Diabetes (HCC) Hypercholesteremia There is no problem list on file for this patient. Current Outpatient Medications Medication Sig Dispense Refill DEXCOM G6 SENSOR anat as directed. DEXCOM G6 TRANSMITTER anat as directed. rosuvastatin (CRESTOR) 20 mg tablet NOVOLOG U-100 INSULIN ASPART 100 unit/mL USE UP TO 130 UNITS DAILY SUBCUTANEOUSLY VIA INSULIN PUMP atorvastatin (LIPITOR) 40 mg tablet Take 40 mg by mouth once daily. (Patient not taking: Reported on 02/19/2023) INSULIN ASPART (NOVOLOG SUBCUTANEOUS) Inject subcutaneously. Per sliding scale (Patient not taking: Reported on 02/19/2023) No current facility-administered medications for this visit. Social History Tobacco Use Smoking status: Never Smokeless tobacco: Never Vaping Use Vaping Use: Never used Substance Use Topics Alcohol use: Yes Comment: Occasionally Drug use: Never Alcohol Use: Yes (Occasionally) Tobacco Use: Never History reviewed. No pertinent family history. Review of Systems Eyes: Negative for blurred vision and double vision. Gastrointestinal: Positive for nausea. Neurological: Positive for dizziness, weakness and headaches. Negative for loss of consciousness. BP 166/82 Pulse 84 Temp 98.2 Resp 24 Wt 216 lb 12.8 oz (98.3kg) SpO2 97% Physical Exam Constitutional: Appearance: Normal appearance. HENT: Head: Contusion present. Comments: 3 cm full-thickness laceration is present. Neurological: Mental Status: He is alert and oriented to person, place, and time. GCS: GCS eye subscore is 4. GCS verbal subscore is 5. GCS motor subscore is 6. Coordination: Romberg sign positive. Awzszj-Rjso-Jwyriw Test abnormal. Gait: Gait abnormal. ASSESSMENT/PLAN: 1. Contusion of head, unspecified part of head, initial encounter - ICD9: 920, ICD10: S00.93XA (primary diagnosis) 2. Laceration of other part of head without foreign body, initial encounter - ICD9: 873.0, ICD10: S01.81XA During my exam when I had the patient's stand to perform a Romberg test he became quite dizzy, near syncopal. He is feeling increasingly fatigued and nauseous. I am concerned that he requires a head CT. He was driven by his . He would like her to drive her to the ER. Thad Nance [facility] CBC W/AUTO DIFF WBC ([id number])O rdered By: Asphalt Paver Operator on 10-07-2022 Basophils (Bld) [#/Vol] 0.1 10*3/uL Normal 0.0-0.2 [facility]; [facility] Work Phone: Comment on above: PATIENT WAS FASTINGP ERFORMED BY: Blendagram70 PixstaUNC Health Pardee [id number] BY: Plutora[address] [id number] Basophils/100 WBC (Bld) 1 % Normal [facility]; [facility] Work Phone: Comment on above: PATIENT WAS FASTINGP ERFORMED BY: Blendagram[address] ConnequityUNC Health Pardee [id number] BY: Plutora[address] [id number] Eosinophils (Bld) [#/Vol] 0.4 10*3/uL Normal 0.0-0.4 [facility]; [facility] Work Phone: Comment on above: PATIENT WAS FASTINGP ERFORMED BY: Blendagram70 [facility] [id number] BY: PowerVision[address] [id number] Eosinophils/100 WBC (Bld) 5 % Normal [facility]; [facility] Work Phone: Comment on above: PATIENT WAS FASTINGP ERFORMED BY: Inventarium.mobi LabCorvil Iqbixf5293 [address] ConnequityUNC [facility] Pardee [id number] BY: Plutora[address] [id number] Erythrocyte distribution width (RBC) [Ratio] 13.1 % Normal 11.6-15.4 [facility]; [facility] Work Phone: Comment on above: PATIENT WAS FASTINGP ERFORMED BY: FERN [facility] Oeavvh5409 [facility] [id number] BY: [address] [id number] Hematocrit (Bld) [Volume fraction] 45.8 % Normal 37.5-51.0 [facility]; [facility] Work Phone: Comment on above: PATIENT WAS FASTINGP ERFORMED BY: FERN [facility] Yydoqo1303 [facility] [id number] BY: [address] [id number] Hemoglobin (Bld) [Mass/Vol] 15.8 g/dL Normal 13.0-17.7 [facility]; [facility] Work Phone: Comment on above: PATIENT WAS FASTINGP ERFORMED BY: FERN [facility] Hpxate6387 [facility] [id number] BY: [address] [id number] Immature granulocytes (Bld) [#/Vol] 0.0 10*3/uL Normal 0.0-0.1 [facility]; [facility] Work Phone: Comment on above: PATIENT WAS FASTINGP ERFORMED BY: [facility] Bdibgb6724 [facility] [id number] BY: [address] [id number] Immature granulocytes/100 WBC (Bld) 1 % Normal [facility]; [facility] Work Phone: Comment on above: PATIENT WAS FASTINGP ERFORMED BY: FERN [facility] Ysfvbd1628 [facility] [id number] BY: PowerVision[address] [id number] Lymphocytes (Bld) [#/Vol] 2.7 10*3/uL Normal 0.7-3.1 [facility]; [facility] Work Phone: Comment on above: PATIENT WAS FASTINGP ERFORMED BY: LabcoEast Orange General HospitalZvxgsu2157 [facility] [id number] BY: Lab[address] [id number] Lymphocytes/100 WBC (Bld) 31 % Normal [facility]; [facility] Work Phone: Comment on above: PATIENT WAS FASTINGP ERFORMED BY: [facility] Tcrire3034 [facility] [id number] BY: [address] [id number] MCH (RBC) [Entitic mass] 31.5 pg Normal 26.6-33.0 [facility]; [facility] Work Phone: Comment on above: PATIENT WAS FASTINGP ERFORMED BY: FERN [facility] Smfqmy0311 [facility] [id number] BY: [address] [id number] MCHC (RBC) [Mass/Vol] 34.5 g/dL Normal 31.5-35.7 [facility]; [facility] Work Phone: Comment on above: PATIENT WAS FASTINGP ERFORMED BY: [facility] Amwtvh3760 [facility] [id number] BY: [address] [id number] MCV (RBC) [Entitic vol] 91 fL Normal 79-97 [facility]; [facility] Work Phone: Comment on above: PATIENT WAS FASTINGP ERFORMED BY: [facility] Dkdmyq5653 [facility] [id number] BY: BN Labco[address] [id number] Monocytes (Bld) [#/Vol] 0.8 10*3/uL Normal 0.1-0.9 [facility]; [facility] Work Phone: Comment on above: PATIENT WAS FASTINGP ERFORMED BY: FERN [facility] Lsjjws9028 Joyner RoadDublin [place] [id number] BY: [facility] [address] [id number] Monocytes/100 WBC (Bld) 9 % Normal [facility]; [facility] Work Phone: Comment on above: PATIENT WAS FASTINGP ERFORMED BY: FERN [facility] Wroncm4729 [address] [facility] [facility] [id number] BY: [facility] [address] [id number] Neutrophils (Bld) [#/Vol] 4.6 10*3/uL Normal 1.4-7.0 [facility]; [facility] Work Phone: Comment on above: PATIENT WAS FASTINGP ERFORMED BY: FERN [facility] Uudlom5901 [facility] [id number] BY: [facility] [address] [id number] Neutrophils/100 WBC (Bld) 53 % Normal [facility]; [facility] Work Phone: Comment on above: PATIENT WAS FASTINGP ERFORMED BY: CB [facility] Xvgozu5572 Joyner RoadUNC Health Pardee [id number] BY: [facility] [address] [id number] Platelets (Bld) [#/Vol] 272 10*3/uL Normal 150-450 [facility]; [facility] Work Phone: Comment on above: PATIENT WAS FASTINGP ERFORMED BY: CB [facility] Ppzawt6096 [address] [facility] [id number] BY: [facility] [address] [id number] RBC (Bld) [#/Vol] 5.01 10*6/uL Normal 4.14-5.80 [facility] Internal [facility]; [facility] Work Phone: Comment on above: PATIENT WAS FASTINGP ERFORMED BY: FERN [facility] Cuatpf3572 [facility] [id number] BY: [address] [id number] WBC (Bld) [#/Vol] 8.6 10*3/uL Normal 3.4-10.8 [facility]; [facility] Work Phone: Comment on above: PATIENT WAS FASTINGP ERFORMED BY: FERN [facility] Xqniqj2523 [facility] [id number] BY: [address] [id number] METABOLIC PANEL, COMPREHENSI VE (14390)Ordered By: Asphalt Paver Operator on 10-07-2022 Albumin [Mass/Vol] 4.6 g/dL Normal 4.0-5.0 [facility]; [facility] Work Phone: Comment on above: PATIENT WAS FASTINGP ERFORMED BY: FERN [facility] Xntqyv6031 [facility] [id number] BY: [address] [id number] Albumin/Globulin [Mass ratio] 1.8 {ratio} Normal 1.2-2.2 [facility]; [facility] Work Phone: Comment on above: PATIENT WAS FASTINGP ERFORMED BY: [facility] Thwwjs1610 [facility] [id number] BY: [address] [id number] ALP [Catalytic activity/Vol] 110 U/L Normal 44-121 [facility]; [facility] Work Phone: Comment on above: PATIENT WAS FASTINGP ERFORMED BY: [facility] Jmbjte4598 [facility] [place] [id number] BY: [address] [id number] ALT [Catalytic activity/Vol] 68 U/L Abnormal 0-44 [facility]; [facility] Work Phone: Comment on above: PATIENT WAS FASTINGP ERFORMED BY: [facility] Uyajjz6000 [address] RoadUNC Health Pardee [id number] BY: [address] [id number] AST [Catalytic activity/Vol] 42 U/L Abnormal 0-40 [facility]; [facility] Work Phone: Comment on above: PATIENT WAS FASTINGP ERFORMED BY: [facility] Stlrfy3318 Joyner RoadUNC Health Pardee [id number] BY: [address] [id number] Bilirubin [Mass/Vol] 0.3 mg/dL Normal 0.0-1.2 Comp rehensive [facility]; [facility] Work Phone: Comment on above: PATIENT WAS FASTINGP ERFORMED BY: [facility] Istowt3011 [facility] [id number] BY: [address] [id number] Calcium [Mass/Vol] 9.6 mg/dL Normal 8.7-10.2 [facility]; [facility] Work Phone: Comment on above: PATIENT WAS FASTINGP ERFORMED BY: [facility] Ecnbzg6273 [facility] [id number] BY: [address] [id number] Chloride [Moles/Vol] 101 mmol/L Normal 96-106 Comp rehensive [facility]; [facility] Work Phone: Comment on above: PATIENT WAS FASTINGP ERFORMED BY: [facility] Jimfwr5291 [facility] [id number] BY: [facility] [address] [id number] CO2 [Moles/Vol] 22 mmol/L Normal 20-[address] [facility]; [facility] Work Phone: Comment on above: PATIENT WAS FASTINGP ERFORMED BY: FERN [facility] Oolufr0047 [facility] [id number] BY: [facility] [address] [id number] Creatinine [Mass/Vol] 0.88 mg/dL Normal 0.76-1.27 [facility] pre[facility]; [facility] Work Phone: Comment on above: PATIENT WAS FASTINGP ERFORMED BY: FERN [facility] Stmkhk4645 [facility] [id number] BY: LabSurgeonKidz[address] [id number] GFR/1.73 sq M.predicted among non-blacks MDRD (S/P/Bld) [Vol rate/Area] 108 mL/min/{1.73_m2} Normal Comprehensi ve Internal Medicine; [facility] Work Phone: Comment on above: PATIENT WAS FASTINGP ERFORMED BY: FERN [facility] Eymkno8325 [facility] [id number] BY: Lab[facility] [id number] Globulin (S) [Mass/Vol] 2.5 g/dL Normal 1.5-4.5 [facility]; [facility] Work Phone: Comment on above: PATIENT WAS FASTINGP ERFORMED BY: CB [facility] Jrnzeu2368 [facility] [id number] BY: Lab[facility] [id number] Glucose [Mass/Vol] 156 mg/dL Abnormal 70-99 [facility] Internal [facility]; [facility] Work Phone: Comment on above: PATIENT WAS FASTINGP ERFORMED BY: FERN [facility] Sraenp4741 [facility] [id number] BY: [facility] [id number] Potassium [Moles/Vol] 4.5 mmol/L Normal 3.5-5.2 [facility]eren[facility]; [facility] Work Phone: Comment on above: PATIENT WAS FASTINGP ERFORMED BY: FERN [facility] Lejagl1516 [facility] [id number] BY: [facility] [address] [id number] Protein [Mass/Vol] 7.1 g/dL Normal 6.0-8.5 [facility]; [facility] Work Phone: Comment on above: PATIENT WAS FASTINGP ERFORMED BY: FERN [facility] Drfkje5786 [facility] [id number] BY: Lab[facility] [id number] Sodium [Moles/Vol] 139 mmol/L Normal 134-144 [facility]; [facility] Work Phone: Comment on above: PATIENT WAS FASTINGP ERFORMED BY: FERN [facility] Icrupi9296 [facility] [id number] BY: Lab[facility] [id number] Urea nitrogen [Mass/Vol] 10 mg/dL Normal 6-24 [facility]; [facility] Work Phone: Comment on above: PATIENT WAS FASTINGP ERFORMED BY: FERN [facility] Ahhicr2684 [facility] [id number] BY: [address] [id number] Urea nitrogen/Creatinine [Mass ratio] 11 mg/mg Normal 9-20 [facility]; [facility] Work Phone: Comment on above: PATIENT WAS FASTINGP ERFORMED BY: FERN [facility] Qwudvf4625 [facility] [id number] BY: Plutora[address] [id number] TESTOSTERONE FREE (35043)Ord ered By: Asphalt Paver Operator on 10-07-2022 Testosterone Free [Mass/Vol] 8.1 pg/mL Normal 6.8-21.5 [facility]; [facility] Work Phone: Comment on above: PATIENT WAS FASTINGP ERFORMED BY: Cswitch6370 [facility] [id number] BY: Plutora[address] [id number] TESTOSTERONE TOTAL (32827)Or dered By: Asphalt Paver Operator on 10-07-2022 Testosterone [Mass/Vol] 389 ng/dL Normal 264-916 [facility]; [facility] Work Phone: Comment on above: Adult male reference interval is based on a population ofhealthy nonobese males (BMI <30) between 19 and 39 years old.breanna Miranda.al. JCEM 2017,102;0644-9094. PMID: 87643646. PATIENT WAS FASTINGP ERFORMED BY: [employer]6370 [facility] [id number] BY: [facility] [id number] VITAMIN B12 AND FOLATES (826 07)Ordered By: Asphalt Paver Operator on 10-07-2022 Cobalamin (Vitamin B12) [Mass/Vol] 469 pg/mL Normal 232-1245 [facility]; [facility] Work Phone: Comment on above: PATIENT WAS FASTINGP ERFORMED BY: Miira Hrfvou7082 [facility] [id number] BY: [facility] [id number] Folate [Mass/Vol] 17.1 ng/mL Normal Compreh ensive Internal Medicine; [facility] Work Phone: Comment on above: A serum folate maie ntration of less than 3.1 ng/mL isconsidered to represent clinical deficiency. PATIENT WAS FASTINGP ERFORMED BY: [facility] Zewcpw3452 [facility] [id number] BY: [facility]1447 [facility] [id number] C-REACTIVE PROTEIN (81365)Or dered By: Asphalt Paver Operator on 06-22-2022 CRP [Mass/Vol] 8 mg/L Normal 0-10 [facility] Internal Medicine; [facility] Work Phone: Comment on above: also send results to Dr. Robert - [phone]; A courtesy copy of this report has been sent to [phone] WAS FASTINGPERFORMED BY: PlutoraEast Orange General HospitalLhayah4673 [facility] [id number] CALCIFEDIOL (08453)Ordered B y: Asphalt Paver Operator on 06-22-2022 25-hydroxyvitamin D [Mass/Vol] 64.9 ng/mL Normal 30.0-100.0 [facility]; [facility] Work Phone: Comment on above: Vitamin D deficiency has been defined by the [place] of[employer] and an Endocrine Society practice guideline as alevel of serum 25-OH vitamin D less than 20 ng/mL (1,2).The Endocrine Society went on to further define vitamin Dinsufficiency as a level between 21 and 29 ng/mL (2).1. IOM ([place] of Medicine). 2010. Dietary reference intakes for calcium and D. [place]: The National Academies Press.2. Aurelia MCLAIN, Freddy BENAVIDES, Emi AZAR, et al. Evaluation, treatment, and prevention of vitamin D deficiency: an Endocrine Society clinical practice guideline. JCEM. 2010; 96(7):1911-30. also send results to Dr. Robert - [phone]; A courtesy copy of this report has been sent to [phone] WAS FASTINGPERFORMED BY: [facility] Epxijv7726 [facility] [id number] CBC, PLATELETS & MANUAL DIFF (44195)Ordered By: Asphalt Paver Operator on 06-22-2022 Basophils (Bld) [#/Vol] 0.1 10*3/uL Normal 0.0-0.2 [facility]; [facility] Work Phone: Comment on above: also send results to Dr. Yesica Shelton ; A courtesy copy of this report has been sent to [phone] WAS FASTINGPERFORMED BY: FERN Pl[employer]ora Wuivej0844 [facility] [id number] Information: FX DR. EVANGELISTA [phone] Basophils/100 WBC (Bld) 1 % Normal [facility]; [facility] Work Phone: Comment on above: also send results to Dr. Yesica Shelton ; A courtesy copy of this report has been sent to [phone] WAS FASTINGPERFORMED BY: FERN PowerVisionkarolina MaciasLphdyd8115 [facility] [id number] Information: FX DR. EVANGELISTA [phone] Eosinophils (Bld) [#/Vol] 0.3 10*3/uL Normal 0.0-0.4 [facility]; [facility] Work Phone: Comment on above: also send results to Dr. Yesica Shelton ; A courtesy copy of this report has been sent to [phone] WAS FASTINGPERFORMED BY: FERN Plutoratrent MaciasXrpwic3728 [facility] [id number] Information: FX DR. EVANGELISTA [phone] Eosinophils/100 WBC (Bld) 3 % Normal [facility]; [facility] Work Phone: Comment on above: also send results to Dr. Yesica Shelton ; A courtesy copy of this report has been sent to [phone] WAS FASTINGPERFORMED BY: FERN Plutoratrent MaciasNikobd0811 [facility] [id number] Information: FX DR. EVANGELISTA [phone] Erythrocyte distribution width (RBC) [Ratio] 12.8 % Normal 11.6-15.4 [facility]; [facility] Work Phone: Comment on above: also send results to Dr. Yesica Shelton [phone]; A courtesy copy of this report has been sent to [phone] WAS FASTINGPERFORMED BY: FERN PowerVisionkarolina MaciasOugwei7990 [facility] [id number] Information: FX DR. EVANGELISTA [phone] Hematocrit (Bld) [Volume fraction] 47.1 % Normal 37.5-51.0 [facility]; [facility] Work Phone: Comment on above: also send results to Dr. Yesica Shelton ; A courtesy copy of this report has been sent to [phone] WAS FASTINGPERFORMED BY: FERN PowerVisionkarolina MaciasXwsmjt0652 [facility] [id number] Information: FX DR. EVANGELISTA [phone] Hemoglobin (Bld) [Mass/Vol] 16.1 g/dL Normal 13.0-17.7 [facility]; [facility] Work Phone: Comment on above: also send results to Dr. Yesica Shelton [phone]; A courtesy copy of this report has been sent to [phone] WAS FASTINGPERFORMED BY: FERN Maciaslin6370 [facility] [id number] Information: FX DR. EVANGELISTA [phone] Immature granulocytes (Bld) [#/Vol] 0.0 10*3/uL Normal 0.0-0.1 [facility]; [facility] Work Phone: Comment on above: also send results to Dr. Robert [phone]; A courtesy copy of this report has been sent to [phone] WAS FASTINGPERFORMED BY: FERN PowerVisionkarolina MaciasYnbvuw7631 [facility] [id number] Information: FX DR. EVANGELISTA [phone] Immature granulocytes/100 WBC (Bld) 0 % Normal [facility]; [facility] Work Phone: Comment on above: also send results to Dr. Yesica Shelton ; A courtesy copy of this report has been sent to [phone] WAS FASTINGPERFORMED BY: FERN PowerVisionkarolina MaciasZpfmre6556 [facility] [id number] Information: FX DR. EVANGELISTA [phone] Lymphocytes (Bld) [#/Vol] 2.8 10*3/uL Normal 0.7-3.1 [facility]; [facility] Work Phone: Comment on above: also send results to Dr. Yesica Shelton ; A courtesy copy of this report has been sent to [phone] WAS FASTINGPERFORMED BY: FERN PowerVisionkarolina MaciasVibpyd9160 [facility] [id number] Information: FX DR. EVANGELISTA [phone] Lymphocytes/100 WBC (Bld) 30 % Normal [facility]; [facility] Work Phone: Comment on above: also send results to Dr. Yesica Shelton ; A courtesy copy of this report has been sent to [phone] WAS FASTINGPERFORMED BY: FERN Maciaslin6370 [facility] [id number] Information: FX DR. EVANGELISTA [phone] MCH (RBC) [Entitic mass] 31.4 pg Normal 26.6-33.0 [facility]; [facility] Work Phone: Comment on above: also send results to Dr. Yesica Shelton ; A courtesy copy of this report has been sent to [phone] WAS FASTINGPERFORMED BY: FERN Plutora Djkebp9976 [facility] [id number] Information: FX DR. EVANGELISTA [phone] MCHC (RBC) [Mass/Vol] 34.2 g/dL Normal 31.5-35.7 [facility] prehensive [facility]; [facility] Work Phone: Comment on above: also send results to Dr. Yesica Shelton ; A courtesy copy of this report has been sent to [phone] WAS FASTINGPERFORMED BY: [facility]Visionsouthpo[facility] hospital Jeneny9329 [facility] [id number] Information: FX DR. EVANGELISTA [phone] MCV (RBC) [Entitic vol] 92 fL Normal 79-97 [facility]; [facility] Work Phone: Comment on above: also send results to Dr. Yesica Shelton ; A courtesy copy of this report has been sent to [phone] WAS FASTINGPERFORMED BY: [facility]6370 [facility] [id number] Information: FX DR. EVANGELISTA [phone] Monocytes (Bld) [#/Vol] 0.6 10*3/uL Normal 0.1-0.9 [facility]; [facility] Work Phone: Comment on above: also send results to Dr. Yesica Shelton ; A courtesy copy of this report has been sent to [phone] WAS FASTINGPERFORMED BY: PowerVisionMcLaren Bay Region6370 [facility] [id number] Information: FX DR. EVANGELISTA [phone] Monocytes/100 WBC (Bld) 7 % Normal [facility]; [facility] Work Phone: Comment on above: also send results to Dr. Yesica Shelton ; A courtesy copy of this report has been sent to [phone] WAS FASTINGPERFORMED BY: [facility]6370 [facility] [id number] Information: FX DR. EVANGELISTA [phone] Neutrophils (Bld) [#/Vol] 5.4 10*3/uL Normal 1.4-7.0 [facility]; [facility] Work Phone: Comment on above: also send results to Dr. Yesica Shelton ; A courtesy copy of this report has been sent to [phone] WAS FASTINGPERFORMED BY: CB LabMcLaren Bay Region6370 [facility] [id number] Information: FX DR. EVANGELISTA [phone] Neutrophils/100 WBC (Bld) 59 % Normal [facility]; [facility] Work Phone: Comment on above: also send results to Dr. Robert [phone]; A courtesy copy of this report has been sent to [phone] WAS FASTINGPERFORMED BY: FERN [facility] Ywpaoq4229 [facility] [id number] Information: FX DR. EVANGELISTA [phone] Platelets (Bld) [#/Vol] 277 10*3/uL Normal 150-450 [facility]; [facility] Work Phone: Comment on above: also send results to Dr. Robert [phone]; A courtesy copy of this report has been sent to [phone] WAS FASTINGPERFORMED BY: FERN [facility] Centerkarolina MaciasGahuyo2386 [facility] [id number] Information: FX DR. EVANGELISTA [phone] RBC (Bld) [#/Vol] 5.12 10*6/uL Normal 4.14-5.80 [facility] Internal Medicine; [facility] Work Phone: Comment on above: also send results to Dr. Robert [phone]; A courtesy copy of this report has been sent to [phone] WAS FASTINGPERFORMED BY: FERN [facility] Centerkarolina MaciasGtlide9604 [facility] [id number] Information: FX DR. EVANGELISTA [phone] WBC (Bld) [#/Vol] 9.2 10*3/uL Normal 3.4-10.8 [facility] Internal Medicine; [facility] Work Phone: Comment on above: also send results to Dr. Robert [phone]; A courtesy copy of this report has been sent to [phone] WAS FASTINGPERFORMED BY: FERN [facility] Yxlfdf3676 [facility] [id number] Information: FX DR. EVANGELISTA [phone] HGB A1C (12574)Ordered By: S ystem Dance Coach on 06-22-2022 HbA1c (Bld) [Mass fraction] 7.3 % Abnormal 4.8-5.6 [facility]; [facility] Work Phone: Comment on above: . Prediabetes: 5.7 - 6.4 Diabetes: >6.4 Glycemic control for adults with diabetes: <7.0 also send results to Dr. Yesica Shelton [phone]; A courtesy copy of this report has been sent to [phone] WAS FASTINGPERFORMED BY: FERN PowerVisionkarolina Rosario6370 [facility] [id number] LIPID PANEL (99720)Ordered B y: Asphalt Paver Operator on 06-22-2022 Cholesterol [Mass/Vol] 167 mg/dL Normal 100-199 [facility] Internal Medicine; [facility] Work Phone: Comment on above: also send results to Dr. Yesica Shelton [phone]; A courtesy copy of this report has been sent to [phone] WAS FASTINGPERFORMED BY: FERN Rosario6370 [facility] [id number] Cholesterol in HDL [Mass/Vol] 38 mg/dL Abnormal [facility]; [facility] Work Phone: Comment on above: also send results to Dr. Yesica Shelton [phone]; A courtesy copy of this report has been sent to [phone] WAS FASTINGPERFORMED BY: FERN Rosario6370 [facility] [id number] Triglyceride [Mass/Vol] 222 mg/dL Abnormal 0-149 [facility]; [facility] Work Phone: Comment on above: also send results to Dr. Yesica Shelton [phone]; A courtesy copy of this report has been sent to [phone] WAS FASTINGPERFORMED BY: FERN Labkarolina MaciasDiauam2197 [facility] [id number] LIPID PANEL (98208) 38 mg/dL Normal 5-40 [facility] Internal Medicine; [facility] Work Phone: Comment on above: also send results to Dr. Yesica Shelton [phone]; A courtesy copy of this report has been sent to [phone] WAS FASTINGPERFORMED BY: FERN Rosario6370 [facility] [id number] LIPID PANEL (31020) 91 mg/dL Normal 0-99 [facility] Internal Medicine; [facility] Work Phone: Comment on above: also send results to Dr. Yesica Shelton [phone]; A courtesy copy of this report has been sent to [phone] WAS FASTINGPERFORMED BY: FERN Ramirez [facility] HospitalFindersfeeUNC Health [facility] [id number] LIPID PANEL (01586) 2.4 {ratio} Normal 0.0-3.6 [facility]; [facility] Work Phone: Comment on above: LDL/HDL Ratio Men Wo men 1/2 Avg.Risk 1.0 1.5 Avg.Risk 3.6 3.2 2X Avg.Risk 6.2 5.0 3X Avg.Risk 8.0 6.1 also send results to Dr. Yesica Shelton [phone]; A courtesy copy of this report has been sent to [phone] WAS FASTINGPERFORMED BY: FERN Labkarolina MaciasWfjimb2160 [facility] [id number] METABOLIC PANEL, COMPREHENSI VE (16757)Ordered By: Asphalt Paver Operator on 06-22-2022 Albumin [Mass/Vol] 4.8 g/dL Normal 4.0-5.0 [facility] Internal Medicine; [facility] Work Phone: Comment on above: also send results to Dr. Yesica Shelton [phone]; A courtesy copy of this report has been sent to [phone] WAS FASTINGPERFORMED BY: FERN Labkarolina MaciasDmgwyx6594 [facility] [id number] Albumin/Globulin [Mass ratio] 1.7 {ratio} Normal 1.2-2.2 [facility]; [facility] Work Phone: Comment on above: also send results to Dr. Yesica Shelton [phone]; A courtesy copy of this report has been sent to [phone] WAS FASTINGPERFORMED BY: FERN Labkarolina MaciasGysynz7944 [address]ner RoadDublin [place] [id number] ALP [Catalytic activity/Vol] 126 U/L Abnormal 44-121 [facility]; [facility] Work Phone: Comment on above: also send results to Dr. Yesica Shelton [phone]; A courtesy copy of this report has been sent to [phone] WAS FASTINGPERFORMED BY: FERN Labkarolina MaciasJrnrhc8028 Joyner RoadDublin [place] [id number] ALT [Catalytic activity/Vol] 42 U/L Normal 0-44 [facility]; [facility] Work Phone: Comment on above: also send results to Dr. Yesica Shelton [phone]; A courtesy copy of this report has been sent to [phone] WAS FASTINGPERFORMED BY: FERN Rosario[address] [facility]in [place] [id number] AST [Catalytic activity/Vol] 31 U/L Normal 0-40 [facility]; [facility] Internal Medicine Work Phone: Comment on above: also send results to Dr. Yesica Shelton [phone]; A courtesy copy of this report has been sent to [phone] WAS FASTINGPERFORMED BY: FERN Labkarolina MaciasAtxzzk3535 Joyner RoadDuin [place] [id number] Bilirubin [Mass/Vol] 0.6 mg/dL Normal 0.0-1.2 [facility]; [facility] Internal Medicine Work Phone: Comment on above: also send results to Dr. Yesica Shelton [phone]; A courtesy copy of this report has been sent to [phone] WAS FASTINGPERFORMED BY: FERN Martin[address] [facility]in [place] [id number] Calcium [Mass/Vol] 9.7 mg/dL Normal 8.7-10.2 [facility] Internal Medicine; [facility] Work Phone: Comment on above: also send results to Dr. Robert - [phone]; A courtesy copy of this report has been sent to [phone] WAS FASTINGPERFORMED BY: FERN Labkarolina MaciasDngkyh5301 [facility]in [place] [id number] Chloride [Moles/Vol] 99 mmol/L Normal 96-106 [facility]; [facility] Work Phone: Comment on above: also send results to Dr. Robert - [phone]; A courtesy copy of this report has been sent to [phone] WAS FASTINGPERFORMED BY: FERN Rosario6[address] [facility]UNC [facility] [id number] CO2 [Moles/Vol] 24 mmol/L Normal 20-[address] [facility] Internal Medicine; [facility] Work Phone: Comment on above: also send results to Dr. Robert - [phone]; A courtesy copy of this report has been sent to [phone] WAS FASTINGPERFORMED BY: FERN Rosario6370 [facility] [id number] Creatinine [Mass/Vol] 0.87 mg/dL Normal 0.76-1.27 [facility] Internal Medicine; [facility] Work Phone: Comment on above: also send results to Dr. Yesica Shelton [phone]; A courtesy copy of this report has been sent to [phone] WAS FASTINGPERFORMED BY: FERN Maciaslin6370 [facility] [id number] GFR/1.73 sq M.predicted among non-blacks MDRD (S/P/Bld) [Vol rate/Area] 109 mL/min/{1.73_m2} Normal [facility] Internal [facility]; [facility] Work Phone: Comment on above: also send results to Dr. Yesica Shelton [phone]; A courtesy copy of this report has been sent to [phone] WAS FASTINGPERFORMED BY: FERN Rosario[address] [place] [id number] Globulin (S) [Mass/Vol] 2.8 g/dL Normal 1.5-4.5 [facility]; [facility] Work Phone: Comment on above: also send results to Dr. Yesica Shelton ; A courtesy copy of this report has been sent to [phone] WAS FASTINGPERFORMED BY: FERN Labkarolina MaciasAfegiz[address] [facility] Hospitalblin [place] [id number] Glucose [Mass/Vol] 119 mg/dL Abnormal 70-99 [facility] Internal Medicine; [facility] Work Phone: Comment on above: also send results to Dr. Yesica Shelton ; A courtesy copy of this report has been sent to [phone] WAS FASTINGPERFORMED BY: FERN Labkarolina MaciasGnzyfl[address] [facility]in [place] [id number] Potassium [Moles/Vol] 3.9 mmol/L Normal 3.5-5.2 [facility] Internal Medicine; [facility] Work Phone: Comment on above: also send results to Dr. Yesica Shelton ; A courtesy copy of this report has been sent to [phone] WAS FASTINGPERFORMED BY: FERN Labkarolina MaciasSsdkfu[address] [facility]in [place] [id number] Protein [Mass/Vol] 7.6 g/dL Normal 6.0-8.5 [facility] Internal Medicine; [facility] Work Phone: Comment on above: also send results to Dr. Yesica Shelton [phone]; A courtesy copy of this report has been sent to [phone] WAS FASTINGPERFORMED BY: FERN Labkarolina MaciasGraeks[address] [facility]in [place] [id number] Sodium [Moles/Vol] 138 mmol/L Normal 134-144 [facility] Internal Medicine; [facility] Work Phone: Comment on above: also send results to Dr. Yesica Shelton [phone]; A courtesy copy of this report has been sent to [phone] WAS FASTINGPERFORMED BY: FERN Rosario6[address] [facility] LocateUNC [facility] Chatham [id number] Urea nitrogen [Mass/Vol] 11 mg/dL Normal 6-24 [facility]; [facility] Work Phone: Comment on above: also send results to Dr. Yesica Shelton [phone]; A courtesy copy of this report has been sent to [phone] WAS FASTINGPERFORMED BY: FERN Rosario6[address] [facility] LocateUNC [facility] [id number] Urea nitrogen/Creatinine [Mass ratio] 13 mg/mg Normal 9-20 [facility]; [facility] Work Phone: Comment on above: also send results to Dr. Yesica Shelton [phone]; A courtesy copy of this report has been sent to [phone] WAS FASTINGPERFORMED BY: FERN Rosario6[address] [facility] LocateUNC [facility] [id number] MICROALBUMINOrdered By: Syst em Dance Coach on 06-22-2022 Albumin DL <= 20 mg/L (U) [Mass/Vol] 18.5 ug/mL Normal [facility]; [facility] Work Phone: Comment on above: also send results to Dr. Yesica Shelton [phone]; A courtesy copy of this report has been sent to [phone] WAS FASTINGPERFORMED BY: FERN Rosario6370 JoynerSac-Osage HospitalFindersfeeUNC Health Chatham [id number] Albumin/Creatinine (U) [Mass ratio] 15 {mg/g_creat} Normal 0-29 [facility]; [facility] Work Phone: Comment on above: Normal: 0 - 29 Moder ately increased: 30 - 300 Severely increased: >300 also send results to Dr. Robert - [phone]; A courtesy copy of this report has been sent to [phone] WAS FASTINGPERFORMED BY: FERN Labcotrent MaciasEwyfrv[address] [facility]in [place] [id number] Creatinine (U) [Mass/Vol] 127.3 mg/dL Normal [facility]; [facility] Work Phone: Comment on above: also send results to Dr. Robert - [phone]; A courtesy copy of this report has been sent to [phone] WAS FASTINGPERFORMED BY: FERN [facility] Fwmxih[address] [facility]ityCommunity Healthin [place] [id number] TSH (THYROID STIMULATING HOR SAPNA) (76794)Ordered By: Asphalt Paver Operator on 06-22-2022 TSH Qn 1.380 {uIU/mL} Normal 0.450-4.[address] [facility] Internal Medicine; [facility] Work Phone: Comment on above: also send results to Dr. Robert - [phone]; A courtesy copy of this report has been sent to [phone] WAS FASTINGPERFORMED BY: FERN [facility] Kdtdeu4182 [facility] HospitalFindersfeeUNC [facility] [id number] CBC with auto diff (27025)Or dered By: Asphalt Paver Operator on 12-29-2021 Basophils (Bld) [#/Vol] 0.1 10*3/uL Normal 0.0-0.2 [facility]; [facility] Work Phone: Comment on above: PATIENT WAS FASTINGP ERFORMED BY: FREN [facility] Iabtds[address] [facility] HospitalDuin [place] [id number] Basophils/100 WBC (Bld) 1 % Normal [facility]; [facility] Work Phone: Comment on above: PATIENT WAS FASTINGP ERFORMED BY: CB [facility] Ojnhkr[address] [facility] HospitalDublin [place] [id number] Eosinophils (Bld) [#/Vol] 0.3 10*3/uL Normal 0.0-0.4 [facility]; [facility] Work Phone: Comment on above: PATIENT WAS FASTINGP ERFORMED BY: [facility] Xobklx5446 [address] RoadDublin [place] [id number] Eosinophils/100 WBC (Bld) 3 % Normal [facility]; [facility] Work Phone: Comment on above: PATIENT WAS FASTINGP ERFORMED BY: [facility] Gxbsdt6071 [address] RoadDublin [place] [id number] Erythrocyte distribution width (RBC) [Ratio] 13.0 % Normal 11.6-15.4 [facility]; [facility] Work Phone: Comment on above: PATIENT WAS FASTINGP ERFORMED BY: CB [facility] Kzyphc6027 [address] RoadCommunity Healthin [place] [id number] Hematocrit (Bld) [Volume fraction] 45.1 % Normal 37.5-51.0 [facility]; [facility] Work Phone: Comment on above: PATIENT WAS FASTINGP ERFORMED BY: CB [facility] Adpkzk2232 [address] RoadCommunity Healthin [place] [id number] Hemoglobin (Bld) [Mass/Vol] 15.6 g/dL Normal 13.0-17.7 [facility]; [facility] Work Phone: Comment on above: PATIENT WAS FASTINGP ERFORMED BY: [facility] Jvbkwe9145 [address] RoadDublin [place] [id number] Immature granulocytes (Bld) [#/Vol] 0.0 10*3/uL Normal 0.0-0.1 [facility]; [facility] Work Phone: Comment on above: PATIENT WAS FASTINGP ERFORMED BY: CB [facility] Pbofow0819 [address] RoadDublin [place] [id number] Immature granulocytes/100 WBC (Bld) 0 % Normal [facility]; [facility] Work Phone: Comment on above: PATIENT WAS FASTINGP ERFORMED BY: CB [facility] Dpmaae2880 [address] RoadDublin [place] [id number] Lymphocytes (Bld) [#/Vol] 2.8 10*3/uL Normal 0.7-3.1 [facility]; [facility] Work Phone: Comment on above: PATIENT WAS FASTINGP ERFORMED BY: FERN Labcotrent RosarioRxdtdt6625 [address] RoadDublin [place] [id number] Lymphocytes/100 WBC (Bld) 28 % Normal [facility]; [facility] Work Phone: Comment on above: PATIENT WAS FASTINGP ERFORMED BY: FERN [facility] Shaioy5883 [address] RoadDublin [place] [id number] MCH (RBC) [Entitic mass] 31.1 pg Normal 26.6-33.0 [facility]; [facility] Work Phone: Comment on above: PATIENT WAS FASTINGP ERFORMED BY: FERN Labcotrent Svqvym5336 [address] RoadDublin [place] [id number] MCHC (RBC) [Mass/Vol] 34.6 g/dL Normal 31.5-35.7 [facility] pre[facility] Internal [facility]; [facility] Work Phone: Comment on above: PATIENT WAS FASTINGP ERFORMED BY: FERN Labcotrent Cxhlre4489 [address] RoadDublin [place] [id number] MCV (RBC) [Entitic vol] 90 fL Normal 79-97 [facility]; [facility] Work Phone: Comment on above: PATIENT WAS FASTINGP ERFORMED BY: FERN [facility] Zuxxmf4053 [address] RoadDuin [place] [id number] Monocytes (Bld) [#/Vol] 0.7 10*3/uL Normal 0.1-0.9 [facility]; [facility] Work Phone: Comment on above: PATIENT WAS FASTINGP ERFORMED BY: FERN [facility] Xndoog4438 [address] RoadDublin [place] [id number] Monocytes/100 WBC (Bld) 7 % Normal [facility]; [facility] Work Phone: Comment on above: PATIENT WAS FASTINGP ERFORMED BY: FERN [facility] Qjmzix8721 [address] RoadDublin [place] [id number] Neutrophils (Bld) [#/Vol] 6.0 10*3/uL Normal 1.4-7.0 [facility]; [facility] Work Phone: Comment on above: PATIENT WAS FASTINGP ERFORMED BY: FERN Genet Rosario6[address] [place] [id number] Neutrophils/100 WBC (Bld) 61 % Normal [facility]; [facility] Work Phone: Comment on above: PATIENT WAS FASTINGP ERFORMED BY: FERN Labcotrent RosarioHkydvj2370 [address] Roadbl[address] [place] [id number] Platelets (Bld) [#/Vol] 259 10*3/uL Normal 150-450 [facility]; [facility] Work Phone: Comment on above: PATIENT WAS FASTINGP ERFORMED BY: FERN Rontrent Vduxbd2682 [address] Roadbl[address] [place] [id number] RBC (Bld) [#/Vol] 5.01 10*6/uL Normal 4.14-5.80 [facility]; [facility] Work Phone: Comment on above: PATIENT WAS FASTINGP ERFORMED BY: FERN Chriskarolina Joctzt[address] [facility] HospitalDublin [place] [id number] WBC (Bld) [#/Vol] 9.9 10*3/uL Normal 3.4-10.8 [facility] Internal Medicine; [facility] Work Phone: Comment on above: PATIENT WAS FASTINGP ERFORMED BY: FERN Lablaytrent Wweuzx36[address] [facility] Hospitalbl[facility] [place] [id number] HGB A1C (19488)Ordered By: S ystem Dance Coach on 12-29-2021 HbA1c (Bld) [Mass fraction] 7.4 % Abnormal 4.8-5.6 [facility]; [facility] Work Phone: Comment on above: . Prediabetes: 5.7 - 6.4 Diabetes: >6.4 Glycemic control for adults with diabetes: <7.0; ADDENDA: fu 6-24 df PATIENT WAS FASTINGP ERFORMED BY: FERN Labcotrent Nrhher6[address] [facility] Hospitalblin [place] [id number] LIPID PANEL (39893)Ordered B y: Asphalt Paver Operator on 12-29-2021 Cholesterol [Mass/Vol] 176 mg/dL Normal 100-199 [facility]; [facility] Work Phone: Comment on above: PATIENT WAS FASTINGP ERFORMED BY: FERN [facility] Meofno8280 [address] RoadDublin [place] [id number] Cholesterol in HDL [Mass/Vol] 41 mg/dL Normal [facility]; [facility] Work Phone: Comment on above: PATIENT WAS FASTINGP ERFORMED BY: CB [facility] Cziesw7772 [address] RoadDublin [place] [id number] Triglyceride [Mass/Vol] 227 mg/dL Abnormal 0-149 [facility]; [facility] Work Phone: Comment on above: PATIENT WAS FASTINGP ERFORMED BY: FERN [facility] Uremxq0565 [address] RoadDublin [place] [id number] LIPID PANEL (36467) 39 mg/dL Normal 5-40 Compr ensive Internal Medicine; [facility] Work Phone: Comment on above: PATIENT WAS FASTINGP ERFORMED BY: CB [facility] Yhvvlx5363 [address] RoadDublin [place] [id number] LIPID PANEL (97510) 96 mg/dL Normal 0-99 [facility]; [facility] Work Phone: Comment on above: PATIENT WAS FASTINGP ERFORMED BY: CB [facility] Gxhagh6259 [address] RoadDublin [place] [id number] LIPID PANEL (26420) 2.3 {ratio} Normal 0.0-3.6 [facility]; [facility] Work Phone: Comment on above: LDL/HDL Ratio Men Wo men 1/2 Avg.Risk 1.0 1.5 Avg.Risk 3.6 3.2 2X Avg.Risk 6.2 5.0 3X Avg.Risk 8.0 6.1 PATIENT WAS FASTINGP ERFORMED BY: CB [facility] Hkjwob1036 [address] RoadDublin [place] [id number] METABOLIC PANEL, COMPREHENSI VE (82509)Ordered By: Asphalt Paver Operator on 12-29-2021 Albumin [Mass/Vol] 4.6 g/dL Normal 4.0-5.0 [facility] Internal Medicine; [facility] Work Phone: Comment on above: PATIENT WAS FASTINGP ERFORMED BY: CB [facility] Whxkcu6346 [address] RoadDublin [place] [id number] Albumin/Globulin [Mass ratio] 1.6 {ratio} Normal 1.2-2.2 [facility]; [facility] Work Phone: Comment on above: PATIENT WAS FASTINGP ERFORMED BY: CB [facility] Zcsykq1390 [address] RoadDublin [place] [id number] ALP [Catalytic activity/Vol] 112 U/L Normal 44-121 [facility]; [facility] Work Phone: Comment on above: PATIENT WAS FASTINGP ERFORMED BY: CB [facility] Helfek6934 [address] RoadDublin [place] [id number] ALT [Catalytic activity/Vol] 34 U/L Normal 0-44 [facility]; [facility] Work Phone: Comment on above: PATIENT WAS FASTINGP ERFORMED BY: CB [facility] Btypyi5345 [address] RoadDublin [place] [id number] AST [Catalytic activity/Vol] 26 U/L Normal 0-40 [facility]; [facility] Work Phone: Comment on above: PATIENT WAS FASTINGP ERFORMED BY: CB [facility] Wfhsqb6075 [address] RoadDublin [place] [id number] Bilirubin [Mass/Vol] 0.5 mg/dL Normal 0.0-1.2 [facility]; [facility] Internal Medicine Work Phone: Comment on above: PATIENT WAS FASTINGP ERFORMED BY: CB [facility] Mibadn2587 [address] RoadDublin [place] [id number] Calcium [Mass/Vol] 9.5 mg/dL Normal 8.7-10.2 [facility] Internal Medicine; [facility] Work Phone: Comment on above: PATIENT WAS FASTINGP ERFORMED BY: CB [facility] Jxkbgp0683 [address] RoadDublin [place] [id number] Chloride [Moles/Vol] 103 mmol/L Normal 96-106 [facility] rehensive Internal Medicine; [facility] Work Phone: Comment on above: PATIENT WAS FASTINGP ERFORMED BY: [facility]po[facility] Jqvomk9[address] [facility]in [place] [id number] CO2 [Moles/Vol] 22 mmol/L Normal 20-[address] [facility]e Internal [facility]; [facility] Work Phone: Comment on above: PATIENT WAS FASTINGP ERFORMED BY: [facility]outhpointe hospital Gsskog2339 [facility] [id number] Creatinine [Mass/Vol] 0.90 mg/dL Normal 0.76-1.27 [facility] Centerensive Internal Medicine; [facility] Work Phone: Comment on above: PATIENT WAS FASTINGP ERFORMED BY: LabMcLaren Bay Region6370 [facility] [id number] GFR/1.73 sq M.predicted among non-blacks MDRD (S/P/Bld) [Vol rate/Area] 108 mL/min/{1.73_m2} Normal Comprehenscentrastate healthcare system Internal Medicine; [facility] Work Phone: Comment on above: PATIENT WAS FASTINGP ERFORMED BY: [facility]6370 [facility] [id number] Globulin (S) [Mass/Vol] 2.9 g/dL Normal 1.5-4.5 [facility] Internal Medicine; [facility] Work Phone: Comment on above: PATIENT WAS FASTINGP ERFORMED BY: [facility] Lcxnfc76[address] [facility] [id number] Glucose [Mass/Vol] 102 mg/dL Abnormal 65-99 [facility] Internal [facility]; [facility] Work Phone: Comment on above: PATIENT WAS FASTINGP ERFORMED BY: [facility]outhpo[facility] hospital Qcwkyl1259 [facility]in [place] [id number] Potassium [Moles/Vol] 4.6 mmol/L Normal 3.5-5.2 Com prehensive Internal Medicine; [facility] Work Phone: Comment on above: PATIENT WAS FASTINGP ERFORMED BY: FERN Labcotrent Xapqxd4545 [address] RoadDublin [place] [id number] Protein [Mass/Vol] 7.5 g/dL Normal 6.0-8.5 [facility] Internal [facility]; [facility] Work Phone: Comment on above: PATIENT WAS FASTINGP ERFORMED BY: FERN [facility] Wpooch2807 [address] RoadDublin [place] [id number] Sodium [Moles/Vol] 140 mmol/L Normal 134-144 [facility] Internal Medicine; [facility] Work Phone: Comment on above: PATIENT WAS FASTINGP ERFORMED BY: FERN Labcotrent Ejbpva4902 [address] RoadDublin [place] [id number] Urea nitrogen [Mass/Vol] 8 mg/dL Normal 6-24 [facility]; [facility] Work Phone: Comment on above: PATIENT WAS FASTINGP ERFORMED BY: FERN [facility] Cdzhek9246 [address] RoadDublin [place] [id number] Urea nitrogen/Creatinine [Mass ratio] 9 mg/mg Normal 9-20 [facility]; [facility] Work Phone: Comment on above: PATIENT WAS FASTINGP ERFORMED BY: FERN Labcotrent Gzfhdo6722 [address] RoadDublin [place] [id number] MICROALBUMINOrdered By: Syst em Dance Coach on 12-29-2021 Albumin DL <= 20 mg/L (U) [Mass/Vol] 13.8 ug/mL Normal [facility]; [facility] Work Phone: Comment on above: PATIENT WAS FASTINGP ERFORMED BY: FERN [facility] Sjnhaa9647 [address] RoadDublin [place] [id number] Albumin/Creatinine (U) [Mass ratio] 12 {mg/g_creat} Normal 0-29 [facility]; [facility] Work Phone: Comment on above: Normal: 0 - 29 Moder ately increased: 30 - 300 Severely increased: >300 PATIENT WAS FASTINGP ERFORMED BY: [employer] ConnequityUNC [facility] [id number] Creatinine (U) [Mass/Vol] 116.9 mg/dL Normal [facility]; [facility] Work Phone: Comment on above: PATIENT WAS FASTINGP ERFORMED BY: [employer]6370 [facility] [id number] Vitamin D Hydroxy (37088)Ord ered By: Asphalt Paver Operator on 12-29-2021 25-hydroxyvitamin D [Mass/Vol] 47.2 ng/mL Normal 30.0-100.0 [facility]; [facility] Work Phone: Comment on above: Vitamin D deficiency has been defined by the [place] ofMedicine and an Endocrine Society practice guideline as alevel of serum 25-OH vitamin D less than 20 ng/mL (1,2).The Endocrine Society went on to further define vitamin Dinsufficiency as a level between 21 and 29 ng/mL (2).1. IOM ([place] of Medicine). 2010. Dietary reference intakes for calcium and D. [place]: The National Academies Press.2. Aurelia MF, Freddy NC, Emi AZAR, et al. Evaluation, treatment, and prevention of vitamin D deficiency: an Endocrine Society clinical practice guideline. JCEM. 2010; 96(7):1911-30. PATIENT WAS FASTINGP ERFORMED BY: [employer]6370 [facility] [id number] C-REACT PROT HIGH SENS(hsCRP ) (93838)Ordered By: Asphalt Paver Operator on 09-08-2021 CRP High sensitivity method [Mass/Vol] 5.53 mg/L Abnormal 0.00-3.00 [facility]; [facility] Work Phone: Comment on above: Relative Risk for Fu ture Cardiovascular Event Low <1.00 Average 1.00 - 3.00 High >3.00 PATIENT WAS FASTINGP ERFORMED BY: Nordex Onlinelin6370 [facility] [id number]; appt 3/4 HGB A1C (91978)Ordered By: S ystem Dance Coach on 09-08-2021 HbA1c (Bld) [Mass fraction] 7.9 % Abnormal 4.8-5.6 [facility]; [facility] Work Phone: Comment on above: . Prediabetes: 5.7 - 6.4 Diabetes: >6.4 Glycemic control for adults with diabetes: <7.0 PATIENT WAS FASTINGP ERFORMED BY: FERN Labcotrent Lnsdwh1041 [address] [facility] Hospitalblin [place] [id number] LIPID PANEL (37203)Ordered B y: Asphalt Paver Operator on 09-08-2021 Cholesterol [Mass/Vol] 145 mg/dL Normal 100-199 [facility]; [facility] Work Phone: Comment on above: PATIENT WAS FASTINGP ERFORMED BY: FERN Labkarolina MaciasUqkqvi4496 [address] [facility]in [place] [id number] Cholesterol in HDL [Mass/Vol] 38 mg/dL Abnormal [facility]; [facility] Work Phone: Comment on above: PATIENT WAS FASTINGP ERFORMED BY: FERN Labkarolina MaciasNasohh7421 [address] [facility]in [place] [id number] Triglyceride [Mass/Vol] 148 mg/dL Normal 0-149 [facility]; [facility] Work Phone: Comment on above: PATIENT WAS FASTINGP ERFORMED BY: FERN Labkarolina MaciasZezuyq8539 [address] [facility]in [place] [id number] LIPID PANEL (23646) 26 mg/dL Normal 5-40 [facility]; [facility] Work Phone: Comment on above: PATIENT WAS FASTINGP ERFORMED BY: FERN Labkarolina Unibod4834 [address] [facility]in [place] [id number] LIPID PANEL (47954) 81 mg/dL Normal 0-99 [facility]; [facility] Work Phone: Comment on above: PATIENT WAS FASTINGP ERFORMED BY: FERN Labkarolina Ydyuyv9391 [address] [facility]in [place] [id number] LIPID PANEL (77614) 2.1 {ratio} Normal 0.0-3.6 [facility]; [facility] Work Phone: Comment on above: LDL/HDL Ratio Men Wo men 1/2 Avg.Risk 1.0 1.5 Avg.Risk 3.6 3.2 2X Avg.Risk 6.2 5.0 3X Avg.Risk 8.0 6.1 PATIENT WAS FASTINGP ERFORMED BY: [facility]6370 [facility] [id number] METABOLIC PANEL, COMPREHENSI VE ([id number])Ordered By: Asphalt Paver Operator on 09-08-2021 Albumin [Mass/Vol] 4.9 g/dL Normal 4.0-5.0 [facility] Internal Medicine; [facility] Work Phone: Comment on above: PATIENT WAS FASTINGP ERFORMED BY: [facility]6370 [facility] [id number] Albumin/Globulin [Mass ratio] 1.8 {ratio} Normal 1.2-2.2 [facility]; [facility] Work Phone: Comment on above: PATIENT WAS FASTINGP ERFORMED BY: [facility]6370 [facility] [id number] ALP [Catalytic activity/Vol] 109 U/L Normal 44-121 [facility]; [facility] Work Phone: Comment on above: PATIENT WAS FASTINGP ERFORMED BY: [facility]6370 [facility] [id number] ALT [Catalytic activity/Vol] 38 U/L Normal 0-44 [facility]; [facility] Work Phone: Comment on above: PATIENT WAS FASTINGP ERFORMED BY: [facility]6370 [facility] [id number] AST [Catalytic activity/Vol] 25 U/L Normal 0-40 [facility]; [facility] Work Phone: Comment on above: PATIENT WAS FASTINGP ERFORMED BY: [facility]6370 [facility] [id number] Bilirubin [Mass/Vol] 0.7 mg/dL Normal 0.0-1.2 [facility]; [facility] Work Phone: Comment on above: PATIENT WAS FASTINGP ERFORMED BY: FERN Velasquez Octvwa0320 [facility] [id number] Calcium [Mass/Vol] 10.0 mg/dL Normal 8.7-10.2 [facility] Internal [facility]; [facility] Work Phone: Comment on above: PATIENT WAS FASTINGP ERFORMED BY: Ron Yrtxmg3532 [facility] [id number] Chloride [Moles/Vol] 99 mmol/L Normal 96-106 Comp rehensive Internal Medicine; [facility] Work Phone: Comment on above: PATIENT WAS FASTINGP ERFORMED BY: Ron Ypzyqy0828 [facility] [id number] CO2 [Moles/Vol] 22 mmol/L Normal 20-[address] [facility]; [facility] Work Phone: Comment on above: PATIENT WAS FASTINGP ERFORMED BY: Ron Oxwuqg2469 [facility] [id number] Creatinine [Mass/Vol] 1.07 mg/dL Normal 0.76-1.27 [facility] pre[facility] Internal Medicine; [facility] Work Phone: Comment on above: PATIENT WAS FASTINGP ERFORMED BY: Ron Pfquvh4827 [facility] [id number] GFR/1.73 sq M.predicted among non-blacks MDRD (S/P/Bld) [Vol rate/Area] 88 mL/min/{1.73_m2} Normal Comprehensiv e Internal Medicine; [facility] Work Phone: Comment on above: In accordance with recommendations from the NKF-ASN Task force, [facility] has updated its eGFR calculation to the 2020 CKD-EPI creatinine equation that estimates kidney function without a race variable. PATIENT WAS FASTINGP ERFORMED BY: FERN Velasquez Anszog6571 [facility] [id number] Globulin (S) [Mass/Vol] 2.7 g/dL Normal 1.5-4.5 [facility]; [facility] Work Phone: Comment on above: PATIENT WAS FASTINGP ERFORMED BY: FERN [facility] Anhjzl2931 [address] RoadDublin [place] [id number] Glucose [Mass/Vol] 87 mg/dL Normal 65-99 [facility] Internal Medicine; [facility] Work Phone: Comment on above: PATIENT WAS FASTINGP ERFORMED BY: CB [facility] Dowppz5869 [address] RoadDublin [place] [id number] Potassium [Moles/Vol] 4.4 mmol/L Normal 3.5-5.2 [facility]; [facility] Work Phone: Comment on above: PATIENT WAS FASTINGP ERFORMED BY: CB [facility] Ufffar3508 [address] RoadDublin [place] [id number] Protein [Mass/Vol] 7.6 g/dL Normal 6.0-8.5 [facility] Internal Medicine; [facility] Work Phone: Comment on above: PATIENT WAS FASTINGP ERFORMED BY: [facility] Ojqgsi8945 [address] RoadDublin [place] [id number] Sodium [Moles/Vol] 138 mmol/L Normal 134-144 [facility] Internal Medicine; [facility] Work Phone: Comment on above: PATIENT WAS FASTINGP ERFORMED BY: [facility] Xzzjmr4905 [address] RoadDublin [place] [id number] Urea nitrogen [Mass/Vol] 10 mg/dL Normal 6-24 [facility] Internal Medicine; [facility] Work Phone: Comment on above: PATIENT WAS FASTINGP ERFORMED BY: [facility] Oooygb4630 [address] RoadDublin [place] [id number] Urea nitrogen/Creatinine [Mass ratio] 9 mg/mg Normal 9-20 [facility] Internal Medicine; [facility] Work Phone: Comment on above: PATIENT WAS FASTINGP ERFORMED BY: CB [facility] Tdfbsx6625 [address] RoadDublin [place] [id number] Vitamin D Hydroxy (37970)Ord ered By: Asphalt Paver Operator on 09-08-2021 25-hydroxyvitamin D [Mass/Vol] 83.0 ng/mL Normal 30.0-100.0 [facility]; [facility] Work Phone: Comment on above: Vitamin D deficiency has been defined by the [place] of[place] and an Endocrine Society practice guideline as alevel of serum 25-OH vitamin D less than 20 ng/mL (1,2).The Endocrine Society went on to further define vitamin Dinsufficiency as a level between 21 and 29 ng/mL (2).1. IOM ([place] of [employer]). 2010. Dietary reference intakes for calcium and D. [place]: The National Academies Press.2. Aurelia MF, Freddy BENAVIDES, Emi AZAR, et al. Evaluation, treatment, and prevention of vitamin D deficiency: an Endocrine Society clinical practice guideline. JCEM. 2010; 96(7):1911-30. PATIENT WAS FASTINGP ERFORMED BY: [employer] [place] [id number] CBC W/AUTO DIFF WBC ([id number])O rdered By: Asphalt Paver Operator on 05-07-2021 Basophils (Bld) [#/Vol] 0.0 10*3/uL Normal 0.0-0.2 [facility]; [facility] Work Phone: Comment on above: PATIENT WAS FASTINGP ERFORMED BY: [facility]ORPUNC [facility] [id number] Information: NURSE DRAW Basophils/100 WBC (Bld) 1 % Normal [facility]; [facility] Work Phone: Comment on above: PATIENT WAS FASTINGP ERFORMED BY: [facility]70 mobiManageUNC Health Chatham [id number] Information: NURSE DRAW Eosinophils (Bld) [#/Vol] 0.4 10*3/uL Normal 0.0-0.4 [facility]; [facility] Work Phone: Comment on above: PATIENT WAS FASTINGP ERFORMED BY: TRANSCORPUNC Health [facility] [id number] Information: NURSE DRAW Eosinophils/100 WBC (Bld) 4 % Normal [facility]; [facility] Work Phone: Comment on above: PATIENT WAS FASTINGP ERFORMED BY: FERN Velasquez Orsccg0339 [facility] [id number] Information: NURSE DRAW Erythrocyte distribution width (RBC) [Ratio] 13.3 % Normal 11.6-15.4 [facility]; [facility] Work Phone: Comment on above: PATIENT WAS FASTINGP ERFORMED BY: FERN [facility] Fjcsop[address] [id number] Information: NURSE DRAW Hematocrit (Bld) [Volume fraction] 45.1 % Normal 37.5-51.0 [facility]; [facility] Work Phone: Comment on above: PATIENT WAS FASTINGP ERFORMED BY: FERN [facility] Mqagmz[address] [id number] Information: NURSE DRAW Hemoglobin (Bld) [Mass/Vol] 15.4 g/dL Normal 13.0-17.7 [facility]; [facility] Work Phone: Comment on above: PATIENT WAS FASTINGP ERFORMED BY: FERN [facility] Egxbzs13[address] [id number] Information: NURSE DRAW Immature granulocytes (Bld) [#/Vol] 0.0 10*3/uL Normal 0.0-0.1 [facility]; [facility] Work Phone: Comment on above: PATIENT WAS FASTINGP ERFORMED BY: FERN Perez[address] [id number] Information: NURSE DRAW Immature granulocytes/100 WBC (Bld) 0 % Normal [facility]; [facility] Work Phone: Comment on above: PATIENT WAS FASTINGP ERFORMED BY: FERN Velasquez Zzggyk[address] [id number] Information: NURSE DRAW Lymphocytes (Bld) [#/Vol] 3.0 10*3/uL Normal 0.7-3.1 [facility]; [facility] Work Phone: Comment on above: PATIENT WAS FASTINGP ERFORMED BY: FERN RonEast Orange General HospitalHmtpgl8221 [facility] [id number] Information: NURSE DRAW Lymphocytes/100 WBC (Bld) 36 % Normal [facility]; [facility] Work Phone: Comment on above: PATIENT WAS FASTINGP ERFORMED BY: FERN [facility] Ppxkpg7266 [facility] [id number] Information: NURSE DRAW MCH (RBC) [Entitic mass] 30.7 pg Normal 26.6-33.0 [facility]; [facility] Work Phone: Comment on above: PATIENT WAS FASTINGP ERFORMED BY: FERN [facility] Cciitk6580 [facility] [id number] Information: NURSE DRAW MCHC (RBC) [Mass/Vol] 34.1 g/dL Normal 31.5-35.7 [facility] prehensive Internal Medicine; [facility] Work Phone: Comment on above: PATIENT WAS FASTINGP ERFORMED BY: FERN ChrisEm[place] 9846970 [facility] [id number] Information: NURSE DRAW MCV (RBC) [Entitic vol] 90 fL Normal 79-97 [facility]; [facility] Work Phone: Comment on above: PATIENT WAS FASTINGP ERFORMED BY: FERN [place] [id number] [facility] [id number] Information: NURSE DRAW Monocytes (Bld) [#/Vol] 0.7 10*3/uL Normal 0.1-0.9 [facility]; [facility] Work Phone: Comment on above: PATIENT WAS FASTINGP ERFORMED BY: FERN LabEmily [place] 9846970 [facility] [id number] Information: NURSE DRAW Monocytes/100 WBC (Bld) 9 % Normal [facility]; [facility] Work Phone: Comment on above: PATIENT WAS FASTINGP ERFORMED BY: FERN LabEmily [place] 9846970 [facility] [id number] Information: NURSE DRAW Neutrophils (Bld) [#/Vol] 4.2 10*3/uL Normal 1.4-7.0 [facility]; [facility] Work Phone: Comment on above: PATIENT WAS FASTINGP ERFORMED BY: FERN Martin70 [facility] [id number] Information: NURSE DRAW Neutrophils/100 WBC (Bld) 50 % Normal [facility]; [facility] Work Phone: Comment on above: PATIENT WAS FASTINGP ERFORMED BY: FERN [facility] Jtzmwk5436 [facility] [id number] Information: NURSE DRAW Platelets (Bld) [#/Vol] 261 10*3/uL Normal 150-450 [facility]; [facility] Work Phone: Comment on above: PATIENT WAS FASTINGP ERFORMED BY: FERN [facility] Naxrui38[address] [id number] Information: NURSE DRAW RBC (Bld) [#/Vol] 5.01 10*6/uL Normal 4.14-5.80 [facility] Internal Medicine; [facility] Work Phone: Comment on above: PATIENT WAS FASTINGP ERFORMED BY: FERN Genet Maciaslin6370 [facility] [id number] Information: NURSE DRAW WBC (Bld) [#/Vol] 8.4 10*3/uL Normal 3.4-10.8 [facility] Internal Medicine; [facility] Work Phone: Comment on above: PATIENT WAS FASTINGP ERFORMED BY: FERN [facility] Wwcjvl8082 [facility] [id number] Information: NURSE DRAW METABOLIC PANEL, JAMAL AYERS ([id number])Ordered By: Asphalt Paver Operator on 05-07-2021 Albumin [Mass/Vol] 4.5 g/dL Normal 4.0-5.0 [facility] Internal Medicine; [facility] Work Phone: Comment on above: PATIENT WAS FASTINGP ERFORMED BY: FERN ChrisScheurer Hospital6370 [facility] Hospitalblin [place] [id number] Albumin/Globulin [Mass ratio] 1.6 {ratio} Normal 1.2-2.2 [facility]; [facility] Work Phone: Comment on above: PATIENT WAS FASTINGP ERFORMED BY: FERN Velasquez Ufraxf8347 [address] [facility] Hospitalblin [place] [id number] ALP [Catalytic activity/Vol] 106 U/L Normal 44-121 [facility]; [facility] Work Phone: Comment on above: Please note refere nce interval change PATIENT WAS FASTINGP ERFORMED BY: [facility] Aixtxq3767 [address] [facility]in [place] [id number] ALT [Catalytic activity/Vol] 47 U/L Abnormal 0-44 [facility]; [facility] Work Phone: Comment on above: PATIENT WAS FASTINGP ERFORMED BY: [facility] Olabvo4588 [address] [facility] [place] [id number] AST [Catalytic activity/Vol] 33 U/L Normal 0-40 [facility]; [facility] Work Phone: Comment on above: PATIENT WAS FASTINGP ERFORMED BY: [facility] Dyngvv9002 [address] [facility]in [place] [id number] Bilirubin [Mass/Vol] 0.4 mg/dL Normal 0.0-1.2 Comp rehensive Internal Medicine; [facility] Work Phone: Comment on above: PATIENT WAS FASTINGP ERFORMED BY: [facility] Gsjwae4109 [address] [facility]in [place] [id number] Calcium [Mass/Vol] 9.3 mg/dL Normal 8.7-10.2 [facility] Internal Medicine; [facility] Work Phone: Comment on above: PATIENT WAS FASTINGP ERFORMED BY: [facility] Vnetmh0573 [address] [facility] [place] [id number] Chloride [Moles/Vol] 104 mmol/L Normal 96-106 Comp rehensive Internal Medicine; [facility] Work Phone: Comment on above: PATIENT WAS FASTINGP ERFORMED BY: FERN Rosario6370 JoynerSac-Osage HospitalHermannUNC Health Chatham [id number] CO2 [Moles/Vol] 22 mmol/L Normal 20-[address] [facility] Internal Medicine; [facility] Work Phone: Comment on above: PATIENT WAS FASTINGP ERFORMED BY: FERN Maciaslin6370 [facility] [id number] Creatinine [Mass/Vol] 0.96 mg/dL Normal 0.76-1.27 [facility]erens[facility]; [facility] Work Phone: Comment on above: PATIENT WAS FASTINGP ERFORMED BY: Ron Yvoyhw9794 [facility] [id number] GFR/1.73 sq M.predicted among blacks CKD-EPI (S/P/Bld) [Vol rate/Area] 111 mL/min/1.73 Normal [facility]; [facility] Work Phone: Comment on above: In accordance with recommendations from the NKF-ASN Task force, [facility] eGFR calculation to the 2020 CKD-EPI creatinine equation that estimates kidney function without a race variable. PATIENT WAS FASTINGP ERFORMED BY: FERN Rosario6370 [facility] [id number] GFR/1.73 sq M.predicted among non-blacks CKD-EPI (S/P/Bld) [Vol rate/Area] 96 mL/min/1.73 Normal [facility]; [facility] Work Phone: Comment on above: PATIENT WAS FASTINGP ERFORMED BY: Ron Mhzsfd2421 [facility] [id number] Globulin (S) [Mass/Vol] 2.8 g/dL Normal 1.5-4.5 [facility]; [facility] Work Phone: Comment on above: PATIENT WAS FASTINGP ERFORMED BY: Ron Dqnlfa0807 [facility] [id number] Glucose [Mass/Vol] 120 mg/dL Abnormal 65-99 Compre hensive Internal Medicine; [facility] Work Phone: Comment on above: PATIENT WAS FASTINGP ERFORMED BY: FERN [facility] Abkzkf8043 [address] RoadDublin [place] [id number] Potassium [Moles/Vol] 4.1 mmol/L Normal 3.5-5.2 [facility] Internal Medicine; [facility] Work Phone: Comment on above: PATIENT WAS FASTINGP ERFORMED BY: CB [facility] Xupjlm5242 [address] RoadDublin [place] [id number] Protein [Mass/Vol] 7.3 g/dL Normal 6.0-8.5 [facility] Internal Medicine; [facility] Work Phone: Comment on above: PATIENT WAS FASTINGP ERFORMED BY: CB [facility] Lflurp0832 [address] RoadDublin [place] [id number] Sodium [Moles/Vol] 141 mmol/L Normal 134-144 [facility] Internal Medicine; [facility] Work Phone: Comment on above: PATIENT WAS FASTINGP ERFORMED BY: FERN [facility] Gxrwrh2346 [address] RoadDublin [place] [id number] Urea nitrogen [Mass/Vol] 9 mg/dL Normal 6-24 [facility]; [facility] Work Phone: Comment on above: PATIENT WAS FASTINGP ERFORMED BY: FERN [facility] Fkmzza6829 [address] RoadDublin [place] [id number] Urea nitrogen/Creatinine [Mass ratio] 9 mg/mg Normal 9-20 [facility] Internal Medicine; [facility] Work Phone: Comment on above: PATIENT WAS FASTINGP ERFORMED BY: CB [facility] Hhyxeo9359 [address] RoadDublin [place] [id number] CBC, PLATELETS & MANUAL DIFF ([id number])Ordered By: Asphalt Paver Operator on 03-26-2021 Basophils (Bld) [#/Vol] 0.1 10*3/uL Normal 0.0-0.2 [facility]; [facility] Work Phone: Comment on above: PATIENT NOT FASTINGP ERFORMED BY: [facility] Esxikr1198 [address] RoadDublin [place] [id number] Basophils/100 WBC (Bld) 0 % Normal [facility]; [facility] Work Phone: Comment on above: PATIENT NOT FASTINGP ERFORMED BY: FERN Rosario[address] FelipeUNC Health Chatham [id number] Eosinophils (Bld) [#/Vol] 0.1 10*3/uL Normal 0.0-0.4 [facility]; [facility] Work Phone: Comment on above: PATIENT NOT FASTINGP ERFORMED BY: FERN [facility] Uyhali3121 [address] [facility] [id number] Eosinophils/100 WBC (Bld) 0 % Normal [facility]; [facility] Work Phone: Comment on above: PATIENT NOT FASTINGP ERFORMED BY: FERN Velasquez Aqddwz7053 [facility] [id number] Erythrocyte distribution width (RBC) [Ratio] 13.0 % Normal 11.6-15.4 [facility]; [facility] Work Phone: Comment on above: PATIENT NOT FASTINGP ERFORMED BY: FERN Velasquez Gapere3667 [facility] [id number] Hematocrit (Bld) [Volume fraction] 45.6 % Normal 37.5-51.0 [facility]; [facility] Work Phone: Comment on above: PATIENT NOT FASTINGP ERFORMED BY: FERN Velasquez Iwjozc6158 [address] [facility] [id number] Hemoglobin (Bld) [Mass/Vol] 15.6 g/dL Normal 13.0-17.7 [facility]; [facility] Work Phone: Comment on above: PATIENT NOT FASTINGP ERFORMED BY: FERN [facility] Xvvlrb4891 [address] [facility] [id number] Immature granulocytes (Bld) [#/Vol] 0.4 10*3/uL Abnormal 0.0-0.1 [facility]; [facility] Work Phone: Comment on above: (An elevated percent age of Immature Granulocytes has not been foundto be clinically significant as a sole clinical predictor of disease.Does NOT include bands or blast cells. associatedphysiological leukocytosis may also show increased immaturegranulocytes without clinical significance.) PATIENT NOT FASTINGP ERFORMED BY: CB [facility] Xheuni0006 [address]ner RoadDublin [place] [id number] Immature granulocytes/100 WBC (Bld) 3 % Normal [facility]; [facility] Work Phone: Comment on above: PATIENT NOT FASTINGP ERFORMED BY: CB [facility] Cosnqg0638 [address] [facility]in [place] [id number] Lymphocytes (Bld) [#/Vol] 2.2 10*3/uL Normal 0.7-3.1 [facility]; [facility] Work Phone: Comment on above: PATIENT NOT FASTINGP ERFORMED BY: [facility] Nzeags2197 [address] [facility] [id number] Lymphocytes/100 WBC (Bld) 17 % Normal [facility]; [facility] Work Phone: Comment on above: PATIENT NOT FASTINGP ERFORMED BY: [facility] Zdlzrt5642 [address] [facility] [id number] MCH (RBC) [Entitic mass] 31.0 pg Normal 26.6-33.0 [facility] Internal Medicine; [facility] Work Phone: Comment on above: PATIENT NOT FASTINGP ERFORMED BY: [facility] Bixzis2964 [address] [facility]in [place] [id number] MCHC (RBC) [Mass/Vol] 34.2 g/dL Normal 31.5-35.7 [facility] prehensive Internal Medicine; [facility] Work Phone: Comment on above: PATIENT NOT FASTINGP ERFORMED BY: CB [facility] Nztbxk5049 [address] [facility] Hospitalblin [place] [id number] MCV (RBC) [Entitic vol] 91 fL Normal 79-97 [facility]; [facility] Work Phone: Comment on above: PATIENT NOT FASTINGP ERFORMED BY: CB [facility] Gquhxy2253 [address] [facility]in [place] [id number] Monocytes (Bld) [#/Vol] 0.8 10*3/uL Normal 0.1-0.9 [facility]; [facility] Work Phone: Comment on above: PATIENT NOT FASTINGP ERFORMED BY: FERN Rosario6370 [address] RoadDublin [place] [id number] Monocytes/100 WBC (Bld) 6 % Normal [facility]; [facility] Work Phone: Comment on above: PATIENT NOT FASTINGP ERFORMED BY: FERN [facility] Xqvyqb7032 [address] RoadDublin [place] [id number] Neutrophils (Bld) [#/Vol] 9.7 10*3/uL Abnormal 1.4-7.0 [facility]; [facility] Work Phone: Comment on above: PATIENT NOT FASTINGP ERFORMED BY: FERN Genet Rosario6370 [address] RoadDublin [place] [id number] Neutrophils/100 WBC (Bld) 74 % Normal [facility]; [facility] Work Phone: Comment on above: PATIENT NOT FASTINGP ERFORMED BY: FERN Genet Rosario6370 [address] RoadDublin [place] [id number] Platelets (Bld) [#/Vol] 687 10*3/uL Abnormal 150-450 [facility]; [facility] Work Phone: Comment on above: PATIENT NOT FASTINGP ERFORMED BY: FERN Ron Anadbc6734 [address] RoadDublin [place] [id number] RBC (Bld) [#/Vol] 5.04 10*6/uL Normal 4.14-5.80 Compr ensive Internal Medicine; [facility] Work Phone: Comment on above: PATIENT NOT FASTINGP ERFORMED BY: FERN [facility] Jdcajg2996 [address] RoadDublin [place] [id number] WBC (Bld) [#/Vol] 13.1 10*3/uL Abnormal 3.4-10.8 Compr ehensive Internal Medicine; [facility] Work Phone: Comment on above: PATIENT NOT FASTINGP ERFORMED BY: CB [facility] Shsdtv4168 [address] RoadDublin [place] [id number] METABOLIC PANEL, COMPREHENSI VE ([id number])Ordered By: Asphalt Paver Operator on 03-26-2021 Albumin [Mass/Vol] 4.1 g/dL Normal 4.0-5.0 [facility] Internal Medicine; [facility] Work Phone: Comment on above: PATIENT NOT FASTINGP ERFORMED BY: CB [facility] Owasxg3513 [address] RoadDublin [place] [id number] Albumin/Globulin [Mass ratio] 1.3 {ratio} Normal 1.2-2.2 [facility]; [facility] Work Phone: Comment on above: PATIENT NOT FASTINGP ERFORMED BY: CB [facility] Ffsqvk4818 [address] RoadDublin [place] [id number] ALP [Catalytic activity/Vol] 94 U/L Normal 44-121 [facility]; [facility] Work Phone: Comment on above: Please note refere nce interval change PATIENT NOT FASTINGP ERFORMED BY: CB [facility] Yttdiz9052 [address]ner RoadDublin [place] [id number] ALT [Catalytic activity/Vol] 55 U/L Abnormal 0-44 [facility]; [facility] Work Phone: Comment on above: PATIENT NOT FASTINGP ERFORMED BY: CB [facility] Knmwzt8930 [address]ner RoadDublin [place] [id number] AST [Catalytic activity/Vol] 35 U/L Normal 0-40 [facility]; [facility] Work Phone: Comment on above: PATIENT NOT FASTINGP ERFORMED BY: CB [facility] Kbpvhb4833 Joyner RoadDublin [place] [id number] Bilirubin [Mass/Vol] 0.4 mg/dL Normal 0.0-1.2 [facility]; [facility] Work Phone: Comment on above: PATIENT NOT FASTINGP ERFORMED BY: CB [facility] Qaihbv8286 [address]ner RoadDublin [place] [id number] Calcium [Mass/Vol] 9.9 mg/dL Normal 8.7-10.2 [facility] Internal [facility]; [facility] Work Phone: Comment on above: PATIENT NOT FASTINGP ERFORMED BY: FERN Velasquez Dabzib6028 Joyner RoadUNC Health Pardee [id number] Chloride [Moles/Vol] 98 mmol/L Normal 96-106 Comp rehensive Internal Medicine; [facility] Work Phone: Comment on above: PATIENT NOT FASTINGP ERFORMED BY: [facility] Eixkyz1454 Joyner RoadCommunity Healthin [place] [id number] CO2 [Moles/Vol] 25 mmol/L Normal 20-[address] [facility]; [facility] Work Phone: Comment on above: PATIENT NOT FASTINGP ERFORMED BY: [facility] Dmiyxi6963 [address] [facility] [id number] Creatinine [Mass/Vol] 0.77 mg/dL Normal 0.76-1.27 [facility] prehensive Internal Medicine; [facility] Work Phone: Comment on above: PATIENT NOT FASTINGP ERFORMED BY: [facility] Hcduzm8294 [address] [facility] [id number] GFR/1.73 sq M.predicted among blacks CKD-EPI (S/P/Bld) [Vol rate/Area] 128 mL/min/1.73 Normal [facility]; [facility] Work Phone: Comment on above: [facility] currently reports eGFR in compliance with the current recommendations of the National Kidney Foundation. [facility] will update reporting as new guidelines are published from the NKF-ASN Task force. PATIENT NOT FASTINGP ERFORMED BY: [facility] Hbvemr3186 [address] [facility] [id number] GFR/1.73 sq M.predicted among non-blacks CKD-EPI (S/P/Bld) [Vol rate/Area] 111 mL/min/1.73 Normal [facility]; [facility] Work Phone: Comment on above: PATIENT NOT FASTINGP ERFORMED BY: [facility] Ginvcv3799 [address] [facility] [id number] Globulin (S) [Mass/Vol] 3.2 g/dL Normal 1.5-4.5 [facility] Internal Medicine; [facility] Work Phone: Comment on above: PATIENT NOT FASTINGP ERFORMED BY: FERN LabKarolina Rosario6370 [address] RoadDublin [place] [id number] Glucose [Mass/Vol] 192 mg/dL Abnormal 65-99 [facility] Internal Medicine; [facility] Work Phone: Comment on above: PATIENT NOT FASTINGP ERFORMED BY: CB [facility] Gsjcpk1647 [address] RoadDublin [place] [id number] Potassium [Moles/Vol] 4.9 mmol/L Normal 3.5-5.2 [facility] Internal Medicine; [facility] Work Phone: Comment on above: PATIENT NOT FASTINGP ERFORMED BY: FERN Maciaslin6370 [address] RoadCommunity Healthin [place] [id number] Protein [Mass/Vol] 7.3 g/dL Normal 6.0-8.5 [facility] Internal Medicine; [facility] Work Phone: Comment on above: PATIENT NOT FASTINGP ERFORMED BY: FERN LabCotrent MaciasLuntyy2546 [address] RoadDublin [place] [id number] Sodium [Moles/Vol] 137 mmol/L Normal 134-144 [facility] Internal Medicine; [facility] Work Phone: Comment on above: PATIENT NOT FASTINGP ERFORMED BY: FERN LabLayrp Xgcxbb3097 [address] Roadblin [place] [id number] Urea nitrogen [Mass/Vol] 12 mg/dL Normal 6-24 [facility]; [facility] Work Phone: Comment on above: PATIENT NOT FASTINGP ERFORMED BY: FERN [facility] Zuwqhc9423 [address] RoadDublin [place] [id number] Urea nitrogen/Creatinine [Mass ratio] 16 mg/mg Normal 9-20 [facility]; [facility] Work Phone: Comment on above: PATIENT NOT FASTINGP ERFORMED BY: FERN [facility] Yffrav0837 [address] [facility] [place] [id number] C-REACT PROT HIGH SENS(hsCRP ) (49216)Ordered By: Asphalt Paver Operator on 07-08-2020 CRP High sensitivity method [Mass/Vol] 3.61 mg/L Abnormal 0.00-3.00 [facility]; [facility] Work Phone: Comment on above: Relative Risk for Fu ture Cardiovascular Event Low <1.00 Average 1.00 - 3.00 High >3.00 PATIENT WAS FASTINGP ERFORMED BY: FERN [facility] Utexqy0646 [facility] [id number] LIPID PANEL (58572)Ordered B y: Asphalt Paver Operator on 07-08-2020 Cholesterol [Mass/Vol] 128 mg/dL Normal 100-199 [facility]; [facility] Work Phone: Comment on above: PATIENT WAS FASTINGP ERFORMED BY: FERN LabOpenbuilds6370 [address] ConnequityUNC [facility] Pard[facility] [id number] Cholesterol in HDL [Mass/Vol] 45 mg/dL Normal [facility]; [facility] Work Phone: Comment on above: PATIENT WAS FASTINGP ERFORMED BY: FERN [employer] Rnjusk9304 [facility] [id number] Cholesterol in LDL/Cholesterol in HDL [Mass ratio] 1.4 {ratio} Normal 0.0-3.6 [facility]; [facility] Work Phone: Comment on above: LDL/HDL Ratio Men Wo men 1/2 Avg.Risk 1.0 1.5 Avg.Risk 3.6 3.2 2X Avg.Risk 6.2 5.0 3X Avg.Risk 8.0 6.1 PATIENT WAS FASTINGP ERFORMED BY: FERN [facility] Rpyffz7662 [facility] [id number] Triglyceride [Mass/Vol] 94 mg/dL Normal 0-149 [facility]; [facility] Work Phone: Comment on above: PATIENT WAS FASTINGP ERFORMED BY: FERN [facility] Peykll3133 [facility] [id number] LIPID PANEL (12878) 65 mg/dL Normal 0-99 Compr ehensive Internal Medicine; [facility] Work Phone: Comment on above: PATIENT WAS FASTINGP ERFORMED BY: FERN [facility] Zbmrrf5458 [address] RoadDublin [place] [id number] LIPID PANEL (79398) 18 mg/dL Normal 5-40 [facility] Internal Medicine; [facility] Work Phone: Comment on above: PATIENT WAS FASTINGP ERFORMED BY: CB [facility] Qjtrft6909 [address] Roadblin [place] [id number] LIPID PANEL (47726) 1.4 {ratio} Normal 0.0-3.6 [facility]; [facility] Work Phone: Comment on above: LDL/HDL Ratio Men Wo men 1/2 Avg.Risk 1.0 1.5 Avg.Risk 3.6 3.2 2X Avg.Risk 6.2 5.0 3X Avg.Risk 8.0 6.1 PATIENT WAS FASTINGP ERFORMED BY: FERN [facility] Frwxbf9180 [address] [facility] [id number] METABOLIC PANEL, COMPREHENSI VE (01500)Ordered By: Asphalt Paver Operator on 07-08-2020 Albumin [Mass/Vol] 5.0 g/dL Normal 4.0-5.0 [facility] Internal Medicine; [facility] Work Phone: Comment on above: PATIENT WAS FASTINGP ERFORMED BY: FERN [facility] Irxtfz0297 [address] [facility]in [place] [id number] Albumin/Globulin [Mass ratio] 1.9 {ratio} Normal 1.2-2.2 [facility] Internal Medicine; [facility] Work Phone: Comment on above: PATIENT WAS FASTINGP ERFORMED BY: CB [facility] Deifei4395 [address] RoadDublin [place] [id number] ALP [Catalytic activity/Vol] 103 [iU]/L Normal 39-117 [facility] Internal Medicine; [facility] Work Phone: Comment on above: PATIENT WAS FASTINGP ERFORMED BY: FERN [facility] Nohouh8812 [address] RoadDublin [place] [id number] ALP [Catalytic activity/Vol] 103 U/L Normal 39-117 [facility]; [facility] Work Phone: Comment on above: PATIENT WAS FASTINGP ERFORMED BY: FERN LabCotrent Ntubmu9468 [address] RoadDublin [place] [id number] ALT [Catalytic activity/Vol] 30 [iU]/L Normal 0-44 [facility]; [facility] Work Phone: Comment on above: PATIENT WAS FASTINGP ERFORMED BY: FERN [facility] Oojhpd4683 [address] RoadDublin [place] [id number] ALT [Catalytic activity/Vol] 30 U/L Normal 0-44 [facility]; [facility] Work Phone: Comment on above: PATIENT WAS FASTINGP ERFORMED BY: FERN LabKarolina MaciasIyaini8352 [address] RoadDublin [place] [id number] AST [Catalytic activity/Vol] 22 [iU]/L Normal 0-40 [facility]; [facility] Work Phone: Comment on above: PATIENT WAS FASTINGP ERFORMED BY: FERN LabLay Nelcba2078 [address] RoadDublin [place] [id number] AST [Catalytic activity/Vol] 22 U/L Normal 0-40 [facility]; [facility] Work Phone: Comment on above: PATIENT WAS FASTINGP ERFORMED BY: FERN LabCotrent Mxojqv7227 [address] RoadDublin [place] [id number] Bilirubin [Mass/Vol] 0.5 mg/dL Normal 0.0-1.2 Comp [facility]ensive [facility]; [facility] Work Phone: Comment on above: PATIENT WAS FASTINGP ERFORMED BY: FERN [facility] Nrjnlw7823 [address] RoadDublin [place] [id number] Calcium [Mass/Vol] 9.6 mg/dL Normal 8.7-10.2 [facility] Internal [facility]; [facility] Work Phone: Comment on above: PATIENT WAS FASTINGP ERFORMED BY: CB [facility] Ughghh7256 [address] RoadDublin [place] [id number] Chloride [Moles/Vol] 103 mmol/L Normal 96-106 Comp rehensive Internal Medicine; [facility] Work Phone: Comment on above: PATIENT WAS FASTINGP ERFORMED BY: CB [facility] Ttyiaq9924 [address] RoadDublin [place] [id number] CO2 [Moles/Vol] 22 mmol/L Normal 20-[address] [facility] Internal Medicine; [facility] Work Phone: Comment on above: PATIENT WAS FASTINGP ERFORMED BY: CB [facility] Jlxfdn0014 Joyner RoadUNC Health Pardee [id number] Creatinine [Mass/Vol] 0.89 mg/dL Normal 0.76-1.27 [facility] Centerens[facility]; [facility] Work Phone: Comment on above: PATIENT WAS FASTINGP ERFORMED BY: CB [facility] Yciikf1096 [address]ner RoadCommunity Healthin [place] [id number] GFR/1.73 sq M predicted among blacks CKD-EPI (S/P/Bld) [Vol rate/Area] 122 mL/min/1.73 Normal [facility]; [facility] Work Phone: Comment on above: PATIENT WAS FASTINGP ERFORMED BY: CB [facility] Csvwnj9027 [address] RoadDuin [place] [id number] GFR/1.73 sq M predicted among non-blacks CKD-EPI (S/P/Bld) [Vol rate/Area] 105 mL/min/1.73 Normal [facility]; [facility] Work Phone: Comment on above: PATIENT WAS FASTINGP ERFORMED BY: CB [facility] Twxrtg8853 [address] [facility] [id number] Globulin (S) [Mass/Vol] 2.7 g/dL Normal 1.5-4.5 [facility]; [facility] Work Phone: Comment on above: PATIENT WAS FASTINGP ERFORMED BY: CB [facility] Slfrkz5057 [address] [facility]in [place] [id number] Glucose [Mass/Vol] 90 mg/dL Normal 65-99 [facility] Internal Medicine; [facility] Work Phone: Comment on above: PATIENT WAS FASTINGP ERFORMED BY: FERN [facility] Ohsjfn8595 [address] RoadDublin [place] [id number] Potassium [Moles/Vol] 4.3 mmol/L Normal 3.5-5.2 [facility]erens[facility]; [facility] Work Phone: Comment on above: PATIENT WAS FASTINGP ERFORMED BY: CB [facility] Pfxjmi1025 [address] RoadDublin [place] [id number] Protein [Mass/Vol] 7.7 g/dL Normal 6.0-8.5 [facility] Internal Medicine; [facility] Work Phone: Comment on above: PATIENT WAS FASTINGP ERFORMED BY: CB [facility] Nlrsbj4899 [address] RoadDublin [place] [id number] Sodium [Moles/Vol] 140 mmol/L Normal 134-144 [facility] Internal Medicine; [facility] Work Phone: Comment on above: PATIENT WAS FASTINGP ERFORMED BY: CB [facility] Rgjglh8263 [address] RoadDublin [place] [id number] Urea nitrogen [Mass/Vol] 7 mg/dL Normal 6-24 [facility] Internal Medicine; [facility] Work Phone: Comment on above: PATIENT WAS FASTINGP ERFORMED BY: CB [facility] Vuvzxd2347 [address] RoadDublin [place] [id number] Urea nitrogen/Creatinine [Mass ratio] 8 mg/mg Abnormal 9-20 [facility]; [facility] Work Phone: Comment on above: PATIENT WAS FASTINGP ERFORMED BY: CB [facility] Ebrbjc6063 [address] RoadDublin [place] [id number] Vitamin D Hydroxy (01629)Ord ered By: Asphalt Paver Operator on 07-08-2020 25-Hydroxyvitamin D2+25-Hydroxyvitamin D3 [Mass/Vol] 41.0 ng/mL Normal 30.0-100.0 [facility]; [facility] Work Phone: Comment on above: Vitamin D deficiency has been defined by the [place] of[place] and an Endocrine Society practice guideline as alevel of serum 25-OH vitamin D less than 20 ng/mL (1,2).The Endocrine Society went on to further define vitamin Dinsufficiency as a level between 21 and 29 ng/mL (2).1. IOM ([place] of [employer]). 2010. Dietary reference intakes for calcium and D. [place]: The National Academies Press.2. Aurelia MF, Freddy BENAVIDES, Emi AZAR, et al. Evaluation, treatment, and prevention of vitamin D deficiency: an Endocrine Society clinical practice guideline. JCEM. 2010; 96(7):1911-30. PATIENT WAS FASTINGP ERFORMED BY: SanakoMichael [place] [id number] [facility] [id number] CBC W/AUTO DIFF WBC (60105)O rdered By: Asphalt Paver Operator on 03-23-2020 Basophils (Bld) [#/Vol] 0.0 {x10E3/uL} Normal 0.0-0.2 [facility] Work Phone: Comment on above: PATIENT WAS FASTINGP ERFORMED BY: [facility] [place] [address] [id number] Information: NURSE DRAW Basophils (Bld) [#/Vol] 0.0 10*3/uL Normal 0.0-0.2 [facility]; [facility] Work Phone: Comment on above: PATIENT WAS FASTINGP ERFORMED BY: [facility] [place] [address] [id number] Information: NURSE DRAW Basophils/100 WBC (Bld) 1 % Normal [facility] Work Phone: Comment on above: PATIENT WAS FASTINGP ERFORMED BY: [employer] [id number] Information: NURSE DRAW Eosinophils (Bld) [#/Vol] 0.4 {x10E3/uL} Normal 0.0-0.4 [facility] Work Phone: Comment on above: PATIENT WAS FASTINGP ERFORMED BY: [address] [id number] Information: NURSE DRAW Eosinophils (Bld) [#/Vol] 0.4 10*3/uL Normal 0.0-0.4 [facility]; [facility] Work Phone: Comment on above: PATIENT WAS FASTINGP ERFORMED BY: FERN Perez[address] [id number] Information: NURSE DRAW Eosinophils/100 WBC (Bld) 4 % Normal [facility] Work Phone: Comment on above: PATIENT WAS FASTINGP ERFORMED BY: [address] [id number] Information: NURSE DRAW Erythrocyte distribution width (RBC) [Ratio] 13.0 % Normal 11.6-15.4 [facility] Work Phone: Comment on above: PATIENT WAS FASTINGP ERFORMED BY: [address] [id number] Information: NURSE DRAW Hematocrit (Bld) [Volume fraction] 45.7 % Normal 37.5-51.0 [facility] Work Phone: Comment on above: PATIENT WAS FASTINGP ERFORMED BY: [address] [id number] Information: NURSE DRAW Hemoglobin (Bld) [Mass/Vol] 15.8 g/dL Normal 13.0-17.7 [facility] Work Phone: Comment on above: PATIENT WAS FASTINGP ERFORMED BY: [address] [id number] Information: NURSE DRAW Immature granulocytes (Bld) [#/Vol] 0.0 {x10E3/uL} Normal 0.0-0.1 [facility] Work Phone: Comment on above: PATIENT WAS FASTINGP ERFORMED BY: [address] [id number] Information: NURSE DRAW Immature granulocytes (Bld) [#/Vol] 0.0 10*3/uL Normal 0.0-0.1 [facility]; [facility] Work Phone: Comment on above: PATIENT WAS FASTINGP ERFORMED BY: FENR [place] [id number] [facility] [id number] Information: NURSE DRAW Immature granulocytes/100 WBC (Bld) 0 % Normal [facility] Work Phone: Comment on above: PATIENT WAS FASTINGP ERFORMED BY: FERN [address] [id number] Information: NURSE DRAW Lymphocytes (Bld) [#/Vol] 2.6 {x10E3/uL} Normal 0.7-3.1 [facility] Internal Medicine Work Phone: Comment on above: PATIENT WAS FASTINGP ERFORMED BY: FERN [address] [id number] Information: NURSE DRAW Lymphocytes (Bld) [#/Vol] 2.6 10*3/uL Normal 0.7-3.1 [facility]; [facility] Work Phone: Comment on above: PATIENT WAS FASTINGP ERFORMED BY: [address] [id number] Information: NURSE DRAW Lymphocytes/100 WBC (Bld) 29 % Normal [facility] Internal Medicine Work Phone: Comment on above: PATIENT WAS FASTINGP ERFORMED BY: FERN [address] [id number] Information: NURSE DRAW MCH (RBC) [Entitic mass] 31.6 pg Normal 26.6-33.0 [facility] Internal Medicine Work Phone: Comment on above: PATIENT WAS FASTINGP ERFORMED BY: [address] [id number] Information: NURSE DRAW MCHC (RBC) [Mass/Vol] 34.6 g/dL Normal 31.5-35.7 [facility] Internal Medicine Work Phone: Comment on above: PATIENT WAS FASTINGP ERFORMED BY: [address] [id number] Information: NURSE DRAW MCV (RBC) [Entitic vol] 91 fL Normal 79-97 [facility] Work Phone: Comment on above: PATIENT WAS FASTINGP ERFORMED BY: FERN Ron Uxmwpi3469 [facility] [id number] Information: NURSE DRAW Monocytes (Bld) [#/Vol] 0.6 {x10E3/uL} Normal 0.1-0.9 [facility] Work Phone: Comment on above: PATIENT WAS FASTINGP ERFORMED BY: [address] [id number] Information: NURSE DRAW Monocytes (Bld) [#/Vol] 0.6 10*3/uL Normal 0.1-0.9 [facility]; [facility] Work Phone: Comment on above: PATIENT WAS FASTINGP ERFORMED BY: [address] [id number] Information: NURSE DRAW Monocytes/100 WBC (Bld) 7 % Normal [facility] Work Phone: Comment on above: PATIENT WAS FASTINGP ERFORMED BY: [address] [id number] Information: NURSE DRAW Neutrophils (Bld) [#/Vol] 5.1 {x10E3/uL} Normal 1.4-7.0 [facility] Work Phone: Comment on above: PATIENT WAS FASTINGP ERFORMED BY: [address] [id number] Information: NURSE DRAW Neutrophils (Bld) [#/Vol] 5.1 10*3/uL Normal 1.4-7.0 [facility]; [facility] Work Phone: Comment on above: PATIENT WAS FASTINGP ERFORMED BY: [address] [id number] Information: NURSE DRAW Neutrophils/100 WBC (Bld) 59 % Normal [facility] Work Phone: Comment on above: PATIENT WAS FASTINGP ERFORMED BY: FERN ChrisKarolina MaciasQnldid5563 [facility] [id number] Information: NURSE DRAW Platelets (Bld) [#/Vol] 256 {x10E3/uL} Normal 150-450 [facility] Internal Medicine Work Phone: Comment on above: PATIENT WAS FASTINGP ERFORMED BY: FERN [facility] Hefcmv3707 [facility] [id number] Information: NURSE DRAW Platelets (Bld) [#/Vol] 256 10*3/uL Normal 150-450 [facility]; [facility] Work Phone: Comment on above: PATIENT WAS FASTINGP ERFORMED BY: FERN ChrisKarolina MaciasJtjykp8356 [facility] [id number] Information: NURSE DRAW RBC (Bld) [#/Vol] 5.00 {x10E6/uL} Normal 4.14-5.80 [facility] Internal Medicine Work Phone: Comment on above: PATIENT WAS FASTINGP ERFORMED BY: FERN [facility] Zebuuh6876 [facility] [id number] Information: NURSE DRAW RBC (Bld) [#/Vol] 5.00 10*6/uL Normal 4.14-5.80 [facility] Internal Medicine; [facility] Work Phone: Comment on above: PATIENT WAS FASTINGP ERFORMED BY: FERN [facility] CenterLay Fecobw0652 [facility] [id number] Information: NURSE DRAW WBC (Bld) [#/Vol] 8.7 {x10E3/uL} Normal 3.4-10.8 [facility] Internal Medicine Work Phone: Comment on above: PATIENT WAS FASTINGP ERFORMED BY: FERN [place] [id number] [facility] [id number] Information: NURSE DRAW WBC (Bld) [#/Vol] 8.7 10*3/uL Normal 3.4-10.8 [facility] Internal Medicine; [facility] Work Phone: Comment on above: PATIENT WAS FASTINGP ERFORMED BY: CB [facility] Zbdbid8438 [address] RoadDublin [place] [id number] Information: NURSE DRAW METABOLIC PANEL, JAMAL AYERS (43615)Ordered By: Asphalt Paver Operator on 03-23-2020 Albumin [Mass/Vol] 4.5 g/dL Normal 4.0-5.0 [facility] Internal Medicine Work Phone: Comment on above: PATIENT WAS FASTINGP ERFORMED BY: CB [facility] Dqjogb4107 [address] RoadDublin [place] [id number] Albumin/Globulin [Mass ratio] 1.7 {ratio} Normal 1.2-2.2 [facility] Work Phone: Comment on above: PATIENT WAS FASTINGP ERFORMED BY: CB [facility] Zmtgal4643 [address] RoadDublin [place] [id number] ALP [Catalytic activity/Vol] 106 [iU]/L Normal 39-117 [facility] Work Phone: Comment on above: PATIENT WAS FASTINGP ERFORMED BY: CB [facility] Huwyei2524 [address] RoadDublin [place] [id number] ALP [Catalytic activity/Vol] 106 U/L Normal 39-117 [facility]; [facility] Work Phone: Comment on above: PATIENT WAS FASTINGP ERFORMED BY: CB [facility] Anwwbq8750 [address] RoadDublin [place] [id number] ALT [Catalytic activity/Vol] 23 [iU]/L Normal 0-44 [facility] Work Phone: Comment on above: PATIENT WAS FASTINGP ERFORMED BY: CB [facility] Rcvrcr2246 [address] RoadDublin [place] [id number] ALT [Catalytic activity/Vol] 23 U/L Normal 0-44 [facility]; [facility] Work Phone: Comment on above: PATIENT WAS FASTINGP ERFORMED BY: CB [facility] Tcnvlp5452 [address] RoadDublin [place] [id number] AST [Catalytic activity/Vol] 18 [iU]/L Normal 0-40 [facility] Work Phone: Comment on above: PATIENT WAS FASTINGP ERFORMED BY: FERN [facility] Pwotsp7841 [address] RoadDublin [place] [id number] AST [Catalytic activity/Vol] 18 U/L Normal 0-40 [facility]; [facility] Work Phone: Comment on above: PATIENT WAS FASTINGP ERFORMED BY: CB [facility] Szwabe9310 [address] RoadDublin [place] [id number] Bilirubin [Mass/Vol] 0.4 mg/dL Normal 0.0-1.2 [facility] rehensive Internal Medicine Work Phone: Comment on above: PATIENT WAS FASTINGP ERFORMED BY: FERN [facility] Wzjybj2603 [address] RoadDublin [place] [id number] Calcium [Mass/Vol] 9.6 mg/dL Normal 8.7-10.2 [facility] Internal Medicine Work Phone: Comment on above: PATIENT WAS FASTINGP ERFORMED BY: FERN [facility] Texfdd4026 [address]ner RoadDublin [place] [id number] Chloride [Moles/Vol] 102 mmol/L Normal 96-106 [facility] Work Phone: Comment on above: PATIENT WAS FASTINGP ERFORMED BY: FERN [facility] Mjxfga3986 [address]ner RoadDublin [place] [id number] CO2 [Moles/Vol] 25 mmol/L Normal 20-[address] [facility] Internal Medicine Work Phone: Comment on above: PATIENT WAS FASTINGP ERFORMED BY: CB [facility] Xmqobc9790 [address] RoadDublin [place] [id number] Creatinine [Mass/Vol] 0.89 mg/dL Normal 0.76-1.27 [facility] Work Phone: Comment on above: PATIENT WAS FASTINGP ERFORMED BY: CB [facility] Ajmowe5223 [address] RoadDublin [place] [id number] GFR/1.73 sq M predicted among blacks CKD-EPI (S/P/Bld) [Vol rate/Area] 122 mL/min/1.73 Normal [facility] Internal Medicine Work Phone: Comment on above: PATIENT WAS FASTINGP ERFORMED BY: FERN [facility] Ntoxiw7233 [address] RoadDublin [place] [id number] GFR/1.73 sq M predicted among non-blacks CKD-EPI (S/P/Bld) [Vol rate/Area] 105 mL/min/1.73 Normal [facility] Internal Medicine Work Phone: Comment on above: PATIENT WAS FASTINGP ERFORMED BY: [facility] Woppcq5131 [address] Roadblin [place] [id number] Globulin (S) [Mass/Vol] 2.7 g/dL Normal 1.5-4.5 [facility] Internal Medicine Work Phone: Comment on above: PATIENT WAS FASTINGP ERFORMED BY: [facility] Zbttvt4754 [address] RoadDublin [place] [id number] Glucose [Mass/Vol] 135 mg/dL Abnormal 65-99 [facility] Internal Medicine Work Phone: Comment on above: PATIENT WAS FASTINGP ERFORMED BY: [facility] Kdsusd2789 [address] Roadblin [place] [id number] Potassium [Moles/Vol] 4.4 mmol/L Normal 3.5-5.2 [facility] Internal Medicine Work Phone: Comment on above: PATIENT WAS FASTINGP ERFORMED BY: [facility] Tnibgr6[address] RoadDublin [place] [id number] Protein [Mass/Vol] 7.2 g/dL Normal 6.0-8.5 [facility] Internal Medicine Work Phone: Comment on above: PATIENT WAS FASTINGP ERFORMED BY: [facility] Rjbyxb8776 [address] RoadDublin [place] [id number] Sodium [Moles/Vol] 141 mmol/L Normal 134-144 [facility] Internal Medicine Work Phone: Comment on above: PATIENT WAS FASTINGP ERFORMED BY: [facility] Xsruhi9[address] RoadDublin [place] [id number] Urea nitrogen [Mass/Vol] 10 mg/dL Normal 6-24 [facility] Internal Medicine Work Phone: Comment on above: PATIENT WAS FASTINGP ERFORMED BY: Lab[facility] Zdoxqy9[address] Global LocateUNC Health Chatham [id number] Urea nitrogen/Creatinine [Mass ratio] 11 mg/mg Normal 9-20 [facility] Work Phone: Comment on above: PATIENT WAS FASTINGP ERFORMED BY: Lab[facility] Bojxhz4970 mobiManageUNC Health Chatham [id number] MICROALBUMINOrdered By: Syst em Dance Coach on 03-23-2020 Albumin DL <= 20 mg/L (U) [Mass/Vol] 10.0 ug/mL Normal [facility] Work Phone: Comment on above: PATIENT WAS FASTINGP ERFORMED BY: Lab[facility] Rrdxhp4[address] ConnequityUNC Health Pardee [id number] Albumin/Creatinine (U) [Mass ratio] 8 {mg/g_creat} Normal 0-29 [facility] Work Phone: Comment on above: Normal: 0 - 29 Moder ately increased: 30 - 300 Severely increased: >300 Please note reference interval change PATIENT WAS FASTINGP ERFORMED BY: Lab[facility] Vpkljt0459 [address] LocateUNC Health Chatham [id number] Creatinine (U) [Mass/Vol] 129.9 mg/dL Normal [facility] Work Phone: Comment on above: PATIENT WAS FASTINGP ERFORMED BY: Lab[facility] Sgpxuf[address] ConnequityUNC Health Pardee [id number] HgA1C , Office ([id number])Ordere d By: Esthela Briceño on 12-09-2019 HbA1c (Bld) [Mass fraction] 7.2 % Abnormal 4.6 - 7.1 [facility] Work Phone: Comment on above: poked him before I r ealized he sees endo - sorry CBC W/AUTO DIFF WBC (43145)O rdered By: Asphalt Paver Operator on 11-26-2019 Basophils (Bld) [#/Vol] 0.1 {x10E3/uL} Normal 0.0-0.2 [facility] Work Phone: Comment on above: PATIENT WAS FASTINGP ERFORMED BY: [facility] Roadblin [place] [id number] Basophils (Bld) [#/Vol] 0.1 10*3/uL Normal 0.0-0.2 [facility]; [facility] Work Phone: Comment on above: PATIENT WAS FASTINGP ERFORMED BY: [facility] Cnnhdv0022 [address]blin [place] [id number] Basophils/100 WBC (Bld) 1 % Normal [facility] Work Phone: Comment on above: PATIENT WAS FASTINGP ERFORMED BY: [facility]6[address] RoadCommunity Healthin [place] [id number] Eosinophils (Bld) [#/Vol] 0.1 {x10E3/uL} Normal 0.0-0.4 [facility] Work Phone: Comment on above: PATIENT WAS FASTINGP ERFORMED BY: [facility] Mhdyra[address] [facility] [id number] Eosinophils (Bld) [#/Vol] 0.1 10*3/uL Normal 0.0-0.4 [facility]; [facility] Work Phone: Comment on above: PATIENT WAS FASTINGP ERFORMED BY: [facility] [facility]in [place] [id number] Eosinophils/100 WBC (Bld) 1 % Normal [facility] Work Phone: Comment on above: PATIENT WAS FASTINGP ERFORMED BY: [facility] [facility] [id number] Erythrocyte distribution width (RBC) [Ratio] 13.2 % Normal 11.6-15.4 [facility] Work Phone: Comment on above: PATIENT WAS FASTINGP ERFORMED BY: [facility] [facility] [id number] Hematocrit (Bld) [Volume fraction] 48.2 % Normal 37.5-51.0 [facility] Work Phone: Comment on above: PATIENT WAS FASTINGP ERFORMED BY: [place] [address] [facility] [id number] Hemoglobin (Bld) [Mass/Vol] 16.1 g/dL Normal 13.0-17.7 [facility] Work Phone: Comment on above: PATIENT WAS FASTINGP ERFORMED BY: [facility] [facility] [id number] Immature granulocytes (Bld) [#/Vol] 0.0 {x10E3/uL} Normal 0.0-0.1 [facility] Work Phone: Comment on above: PATIENT WAS FASTINGP ERFORMED BY: [place] 9008570 [address]ner RoadCommunity Healthin [place] [id number] Immature granulocytes (Bld) [#/Vol] 0.0 10*3/uL Normal 0.0-0.1 [facility]; [facility] Work Phone: Comment on above: PATIENT WAS FASTINGP ERFORMED BY: [place] [address]85[address] [facility] [id number] Immature granulocytes/100 WBC (Bld) 0 % Normal [facility] Work Phone: Comment on above: PATIENT WAS FASTINGP ERFORMED BY: [place] [address]85[address] [facility] [id number] Lymphocytes (Bld) [#/Vol] 2.4 {x10E3/uL} Normal 0.7-3.1 [facility] Work Phone: Comment on above: PATIENT WAS FASTINGP ERFORMED BY: [place] 9008570 [address] RoadUNC Health Pardee [id number] Lymphocytes (Bld) [#/Vol] 2.4 10*3/uL Normal 0.7-3.1 [facility]; [facility] Work Phone: Comment on above: PATIENT WAS FASTINGP ERFORMED BY: [place] 9008570 [address] Roadblin [place] [id number] Lymphocytes/100 WBC (Bld) 28 % Normal [facility] Work Phone: Comment on above: PATIENT WAS FASTINGP ERFORMED BY: FERN [facility] Gfjqel2551 [address] RoadDublin [place] [id number] MCH (RBC) [Entitic mass] 31.0 pg Normal 26.6-33.0 [facility] Internal Medicine Work Phone: Comment on above: PATIENT WAS FASTINGP ERFORMED BY: LabCoUNM HospitalShhibr2552 [address] Roadblin [place] [id number] MCHC (RBC) [Mass/Vol] 33.4 g/dL Normal 31.5-35.7 [facility] Internal Medicine Work Phone: Comment on above: PATIENT WAS FASTINGP ERFORMED BY: [facility] Eibzjw[address] [facility] Hospitalblin [place] [id number] MCV (RBC) [Entitic vol] 93 fL Normal 79-97 [facility] Internal Medicine Work Phone: Comment on above: PATIENT WAS FASTINGP ERFORMED BY: [facility] RoadCommunity Healthin [place] [id number] Monocytes (Bld) [#/Vol] 0.7 {x10E3/uL} Normal 0.1-0.9 [facility] Work Phone: Comment on above: PATIENT WAS FASTINGP ERFORMED BY: [facility] Xedvlo8170 [address] Roadblin [place] [id number] Monocytes (Bld) [#/Vol] 0.7 10*3/uL Normal 0.1-0.9 [facility]; [facility] Work Phone: Comment on above: PATIENT WAS FASTINGP ERFORMED BY: [facility] Dhuary0366 [address] RoadDublin [place] [id number] Monocytes/100 WBC (Bld) 8 % Normal [facility] Work Phone: Comment on above: PATIENT WAS FASTINGP ERFORMED BY: [facility] Oxjpxc[address] [facility] Hospitalblin [place] [id number] Neutrophils (Bld) [#/Vol] 5.3 {x10E3/uL} Normal 1.4-7.0 [facility] Work Phone: Comment on above: PATIENT WAS FASTINGP ERFORMED BY: CB [facility] Zvxsun3069 [address] RoadDublin [place] [id number] Neutrophils (Bld) [#/Vol] 5.3 10*3/uL Normal 1.4-7.0 [facility]; [facility] Work Phone: Comment on above: PATIENT WAS FASTINGP ERFORMED BY: CB [facility] Mmtaaw3916 [address] RoadDublin [place] [id number] Neutrophils/100 WBC (Bld) 62 % Normal [facility] Work Phone: Comment on above: PATIENT WAS FASTINGP ERFORMED BY: CB [facility] Fockdo1905 [address] RoadDublin [place] [id number] Platelets (Bld) [#/Vol] 252 {x10E3/uL} Normal 150-450 [facility] Work Phone: Comment on above: PATIENT WAS FASTINGP ERFORMED BY: CB [facility] Sryzqv3726 [address] RoadDublin [place] [id number] Platelets (Bld) [#/Vol] 252 10*3/uL Normal 150-450 [facility]; [facility] Work Phone: Comment on above: PATIENT WAS FASTINGP ERFORMED BY: CB [facility] Wjctxa4710 [address] RoadDublin [place] [id number] RBC (Bld) [#/Vol] 5.19 {x10E6/uL} Normal 4.14-5.80 [facility] Internal Medicine Work Phone: Comment on above: PATIENT WAS FASTINGP ERFORMED BY: CB [facility] Mgvfgq9817 [address] RoadDublin [place] [id number] RBC (Bld) [#/Vol] 5.19 10*6/uL Normal 4.14-5.80 [facility] Internal Medicine; [facility] Work Phone: Comment on above: PATIENT WAS FASTINGP ERFORMED BY: CB [facility] Qnstrj7236 [address] RoadDublin [place] [id number] WBC (Bld) [#/Vol] 8.6 {x10E3/uL} Normal 3.4-10.8 [facility]eren[facility] Work Phone: Comment on above: PATIENT WAS FASTINGP ERFORMED BY: FERN [facility] Hwoush2986 [address] RoadDublin [place] [id number] WBC (Bld) [#/Vol] 8.6 10*3/uL Normal 3.4-10.8 [facility] Internal Medicine; [facility] Work Phone: Comment on above: PATIENT WAS FASTINGP ERFORMED BY: FERN [facility] Opbzbb1877 [address] RoadDublin [place] [id number] LIPID PANEL ([id number])Ordered B y: Asphalt Paver Operator on 11-26-2019 Cholesterol [Mass/Vol] 149 mg/dL Normal 100-199 [facility]erens[facility] Work Phone: Comment on above: PATIENT WAS FASTINGP ERFORMED BY: FERN LabKarolina MaciasWgczxo9639 [address] RoadDublin [place] [id number] Cholesterol in HDL [Mass/Vol] 39 mg/dL Abnormal [facility] Work Phone: Comment on above: PATIENT WAS FASTINGP ERFORMED BY: FERN LabCotrent Pdwepk9687 [address] RoadDublin [place] [id number] Cholesterol in LDL [Mass/Vol] 86 mg/dL Normal 0-99 [facility] Work Phone: Comment on above: PATIENT WAS FASTINGP ERFORMED BY: FERN LabCotrent Naylfb1220 [address] RoadDublin [place] [id number] Cholesterol in LDL/Cholesterol in HDL [Mass ratio] 2.2 {ratio} Normal 0.0-3.6 [facility] Work Phone: Comment on above: LDL/HDL Ratio Men Wo men 1/2 Avg.Risk 1.0 1.5 Avg.Risk 3.6 3.2 2X Avg.Risk 6.2 5.0 3X Avg.Risk 8.0 6.1 PATIENT WAS FASTINGP ERFORMED BY: FERN [facility] Lbriyp2814 [address] RoadDublin [place] [id number] Cholesterol in VLDL [Mass/Vol] 24 mg/dL Normal 5-40 [facility] Work Phone: Comment on above: PATIENT WAS FASTINGP ERFORMED BY: CB [facility] Nlcrbr9339 [address] RoadDublin [place] [id number] Triglyceride [Mass/Vol] 121 mg/dL Normal 0-149 [facility] Work Phone: Comment on above: PATIENT WAS FASTINGP ERFORMED BY: CB [facility] Pzyrmp2836 [address] RoadDublin [place] [id number] METABOLIC PANEL, COMPREHENSI VE ([id number])Ordered By: Asphalt Paver Operator on 11-26-2019 Albumin [Mass/Vol] 4.6 g/dL Normal 4.0-5.0 [facility] Internal Medicine Work Phone: Comment on above: PATIENT WAS FASTINGP ERFORMED BY: FERN [facility] Vsyzpp8463 [address] RoadDublin [place] [id number] Albumin/Globulin [Mass ratio] 1.6 {ratio} Normal 1.2-2.2 [facility] Work Phone: Comment on above: PATIENT WAS FASTINGP ERFORMED BY: CB [facility] Utecqi1910 [address] RoadDublin [place] [id number] ALP [Catalytic activity/Vol] 101 [iU]/L Normal 39-117 [facility] Work Phone: Comment on above: PATIENT WAS FASTINGP ERFORMED BY: CB [facility] Xjwdjm1817 [address] RoadDublin [place] [id number] ALP [Catalytic activity/Vol] 101 U/L Normal 39-117 [facility]; [facility] Work Phone: Comment on above: PATIENT WAS FASTINGP ERFORMED BY: CB [facility] Gnheat4077 [address] RoadDublin [place] [id number] ALT [Catalytic activity/Vol] 31 [iU]/L Normal 0-44 [facility] Work Phone: Comment on above: PATIENT WAS FASTINGP ERFORMED BY: CB [facility] Rgeiwj4159 [address] RoadDublin [place] [id number] ALT [Catalytic activity/Vol] 31 U/L Normal 0-44 [facility]; [facility] Work Phone: Comment on above: PATIENT WAS FASTINGP ERFORMED BY: FERN [facility] Hyfllt7751 [address] RoadDublin [place] [id number] AST [Catalytic activity/Vol] 20 [iU]/L Normal 0-40 [facility] Work Phone: Comment on above: PATIENT WAS FASTINGP ERFORMED BY: FERN [facility] Jmbwzu5532 [address] RoadDublin [place] [id number] AST [Catalytic activity/Vol] 20 U/L Normal 0-40 [facility]; [facility] Internal Medicine Work Phone: Comment on above: PATIENT WAS FASTINGP ERFORMED BY: FERN [facility] Jwxdyb5234 [address] RoadDublin [place] [id number] Bilirubin [Mass/Vol] 0.4 mg/dL Normal 0.0-1.2 [facility] Work Phone: Comment on above: PATIENT WAS FASTINGP ERFORMED BY: FERN [facility] Gadthx1908 [address] RoadDublin [place] [id number] Calcium [Mass/Vol] 9.5 mg/dL Normal 8.7-10.2 [facility] Internal Medicine Work Phone: Comment on above: PATIENT WAS FASTINGP ERFORMED BY: FERN [facility] Ehnejr7894 [address] RoadDublin [place] [id number] Chloride [Moles/Vol] 101 mmol/L Normal 96-106 [facility] Work Phone: Comment on above: PATIENT WAS FASTINGP ERFORMED BY: FERN [facility] Pxscgn6412 [address] RoadDublin [place] [id number] CO2 [Moles/Vol] 22 mmol/L Normal 20-[address] [facility] Internal Medicine Work Phone: Comment on above: PATIENT WAS FASTINGP ERFORMED BY: FERN [facility] Ylbleb2946 [address] RoadDublin [place] [id number] Creatinine [Mass/Vol] 0.89 mg/dL Normal 0.76-1.27 [facility] Internal Medicine Work Phone: Comment on above: PATIENT WAS FASTINGP ERFORMED BY: [facility] Rflpux9444 [address] Roadblin [place] [id number] GFR/1.73 sq M predicted among blacks CKD-EPI (S/P/Bld) [Vol rate/Area] 122 mL/min/1.73 Normal [facility] Work Phone: Comment on above: PATIENT WAS FASTINGP ERFORMED BY: [facility] Qibvbv2780 [address] Roadblin [place] [id number] GFR/1.73 sq M predicted among non-blacks CKD-EPI (S/P/Bld) [Vol rate/Area] 105 mL/min/1.73 Normal [facility] Work Phone: Comment on above: PATIENT WAS FASTINGP ERFORMED BY: [facility] [facility]in [place] [id number] Globulin (S) [Mass/Vol] 2.9 g/dL Normal 1.5-4.5 [facility] Internal Medicine Work Phone: Comment on above: PATIENT WAS FASTINGP ERFORMED BY: [facility] [facility]in [place] [id number] Glucose [Mass/Vol] 125 mg/dL Abnormal 65-99 [facility] Internal Medicine Work Phone: Comment on above: PATIENT WAS FASTINGP ERFORMED BY: [facility]6370 [facility] [id number] Potassium [Moles/Vol] 4.3 mmol/L Normal 3.5-5.2 [facility] Work Phone: Comment on above: PATIENT WAS FASTINGP ERFORMED BY: [facility] Xmrcxm[address] [facility]in [place] [id number] Protein [Mass/Vol] 7.5 g/dL Normal 6.0-8.5 [facility] Internal Medicine Work Phone: Comment on above: PATIENT WAS FASTINGP ERFORMED BY: [facility] Atcxrj6786 [address] [facility]in [place] [id number] Sodium [Moles/Vol] 140 mmol/L Normal 134-144 [facility] Internal Medicine Work Phone: Comment on above: PATIENT WAS FASTINGP ERFORMED BY: [facility] [facility]in [place] [id number] Urea nitrogen [Mass/Vol] 9 mg/dL Normal 6-24 [facility] Work Phone: Comment on above: PATIENT WAS FASTINGP ERFORMED BY: [facility] [facility] [id number] Urea nitrogen/Creatinine [Mass ratio] 10 mg/mg Normal 9-20 [facility] Work Phone: Comment on above: PATIENT WAS FASTINGP ERFORMED BY: [facility]6370 [facility] [id number] CBC W/AUTO DIFF WBC ([id number])O rdered By: Asphalt Paver Operator on 05-08-2019 Basophils (Bld) [#/Vol] 0.0 {x10E3/uL} Normal 0.0-0.2 [facility] Work Phone: Comment on above: PATIENT WAS FASTINGP ERFORMED BY: [facility] [facility] [id number] Basophils (Bld) [#/Vol] 0.0 10*3/uL Normal 0.0-0.2 [facility]; [facility] Work Phone: Comment on above: PATIENT WAS FASTINGP ERFORMED BY: [facility] [facility] [id number] Basophils/100 WBC (Bld) 0 % Normal [facility] Work Phone: Comment on above: PATIENT WAS FASTINGP ERFORMED BY: [facility] Lcufni75[address] [facility] [id number] Eosinophils (Bld) [#/Vol] 0.3 {x10E3/uL} Normal 0.0-0.4 [facility] Work Phone: Comment on above: PATIENT WAS FASTINGP ERFORMED BY: [facility] Mhjxmq40[address] [facility] [id number] Eosinophils (Bld) [#/Vol] 0.3 10*3/uL Normal 0.0-0.4 [facility]; [facility] Work Phone: Comment on above: PATIENT WAS FASTINGP ERFORMED BY: FERN Velasquez Uwgkxi9[address] [facility]in [place] [id number] Eosinophils/100 WBC (Bld) 4 % Normal [facility] Work Phone: Comment on above: PATIENT WAS FASTINGP ERFORMED BY: [facility] Joorys57[address] [facility] [id number] Erythrocyte distribution width (RBC) [Ratio] 13.5 % Normal 12.3-15.4 [facility] Work Phone: Comment on above: PATIENT WAS FASTINGP ERFORMED BY: [facility] Byssai89[address] [facility] [id number] Hematocrit (Bld) [Volume fraction] 43.8 % Normal 37.5-51.0 [facility] Work Phone: Comment on above: PATIENT WAS FASTINGP ERFORMED BY: [facility] Entljx5[address] [facility] [id number] Hemoglobin (Bld) [Mass/Vol] 15.5 g/dL Normal 13.0-17.7 [facility] Work Phone: Comment on above: PATIENT WAS FASTINGP ERFORMED BY: [facility] Yvhhpd37[address] [facility] [id number] Immature granulocytes (Bld) [#/Vol] 0.0 {x10E3/uL} Normal 0.0-0.1 [facility] Work Phone: Comment on above: PATIENT WAS FASTINGP ERFORMED BY: [facility] Spsryq0[address] [facility]in [place] [id number] Immature granulocytes (Bld) [#/Vol] 0.0 10*3/uL Normal 0.0-0.1 [facility]; [facility] Work Phone: Comment on above: PATIENT WAS FASTINGP ERFORMED BY: [facility] RoadCommunity Healthin [place] [id number] Immature granulocytes/100 WBC (Bld) 0 % Normal [facility] Work Phone: Comment on above: PATIENT WAS FASTINGP ERFORMED BY: LabCoEast Orange General HospitalWykxhg8854 [address] RoadDublin [place] [id number] Lymphocytes (Bld) [#/Vol] 3.3 {x10E3/uL} Abnormal 0.7-3.1 [facility] Internal Medicine Work Phone: Comment on above: PATIENT WAS FASTINGP ERFORMED BY: LabSaint [facility]ree[facility] Medical CenterSsuxdj9214 [address] RoadDublin [place] [id number] Lymphocytes (Bld) [#/Vol] 3.3 10*3/uL Abnormal 0.7-3.1 [facility] Internal Medicine; [facility] Work Phone: Comment on above: PATIENT WAS FASTINGP ERFORMED BY: [facility]Dublin [place] [id number] Lymphocytes/100 WBC (Bld) 38 % Normal [facility] Work Phone: Comment on above: PATIENT WAS FASTINGP ERFORMED BY: [facility]bl[address] [place] [id number] MCH (RBC) [Entitic mass] 31.2 pg Normal 26.6-33.0 [facility] Internal Medicine Work Phone: Comment on above: PATIENT WAS FASTINGP ERFORMED BY: LabSaint [facility]ree[facility] Medical CenterCbjnkr0076 [address] RoadDublin [place] [id number] MCHC (RBC) [Mass/Vol] 35.4 g/dL Normal 31.5-35.7 [facility] Internal Medicine Work Phone: Comment on above: PATIENT WAS FASTINGP ERFORMED BY: [facility] Lrresk[address] [facility] HospitalDublin [place] [id number] MCV (RBC) [Entitic vol] 88 fL Normal 79-97 [facility] Internal Medicine Work Phone: Comment on above: PATIENT WAS FASTINGP ERFORMED BY: Lab[facility] Dokkze0837 [address] RoadDublin [place] [id number] Monocytes (Bld) [#/Vol] 0.6 {x10E3/uL} Normal 0.1-0.9 [facility] Work Phone: Comment on above: PATIENT WAS FASTINGP ERFORMED BY: FERN [facility] Jhlwsp5235 [address] RoadDublin [place] [id number] Monocytes (Bld) [#/Vol] 0.6 10*3/uL Normal 0.1-0.9 [facility]; [facility] Work Phone: Comment on above: PATIENT WAS FASTINGP ERFORMED BY: FERN [facility] Wiuyyt6110 [address] RoadDublin [place] [id number] Monocytes/100 WBC (Bld) 7 % Normal [facility] Work Phone: Comment on above: PATIENT WAS FASTINGP ERFORMED BY: FERN LabCotrent MaciasYbxxmr3522 [address] RoadDublin [place] [id number] Neutrophils (Bld) [#/Vol] 4.6 {x10E3/uL} Normal 1.4-7.0 [facility] Work Phone: Comment on above: PATIENT WAS FASTINGP ERFORMED BY: FERN [facility] Jbbtji3803 [address] RoadDublin [place] [id number] Neutrophils (Bld) [#/Vol] 4.6 10*3/uL Normal 1.4-7.0 [facility]; [facility] Work Phone: Comment on above: PATIENT WAS FASTINGP ERFORMED BY: [facility] Twakau6006 [address] RoadDublin [place] [id number] Neutrophils/100 WBC (Bld) 51 % Normal [facility] Work Phone: Comment on above: PATIENT WAS FASTINGP ERFORMED BY: CB [facility] Wvlzqq3400 [address] RoadDublin [place] [id number] Platelets (Bld) [#/Vol] 268 {x10E3/uL} Normal 150-450 [facility] Work Phone: Comment on above: PATIENT WAS FASTINGP ERFORMED BY: CB [facility] Xlwgtj9703 [address] RoadDublin [place] [id number] Platelets (Bld) [#/Vol] 268 10*3/uL Normal 150-450 [facility]; [facility] Work Phone: Comment on above: PATIENT WAS FASTINGP ERFORMED BY: FERN LabCotrent Jfkpnj0563 [address] Roadblin [place] [id number] RBC (Bld) [#/Vol] 4.97 {x10E6/uL} Normal 4.14-5.80 [facility] Work Phone: Comment on above: PATIENT WAS FASTINGP ERFORMED BY: FERN [facility] Sudowe1091 [address] Roadblin [place] [id number] RBC (Bld) [#/Vol] 4.97 10*6/uL Normal 4.14-5.80 [facility] Internal Medicine; [facility] Work Phone: Comment on above: PATIENT WAS FASTINGP ERFORMED BY: FERN LabKarolina MaciasZifsjr[address] [place] [id number] WBC (Bld) [#/Vol] 8.8 {x10E3/uL} Normal 3.4-10.8 [facility] Work Phone: Comment on above: PATIENT WAS FASTINGP ERFORMED BY: FERN [facility] Cgprfu4132 [address]blin [place] [id number] WBC (Bld) [#/Vol] 8.8 10*3/uL Normal 3.4-10.8 [facility] Internal Medicine; [facility] Work Phone: Comment on above: PATIENT WAS FASTINGP ERFORMED BY: FERN [facility] Cjbnha[address] [facility] [place] [id number] LIPID PANEL ([id number])Ordered B y: Asphalt Paver Operator on 05-08-2019 Cholesterol [Mass/Vol] 227 mg/dL Abnormal 100-199 [facility] Internal Medicine Work Phone: Comment on above: PATIENT WAS FASTINGP ERFORMED BY: FERN [facility] Fgjosq[address] [facility] HospitalDublin [place] [id number] Cholesterol in HDL [Mass/Vol] 36 mg/dL Abnormal [facility] Work Phone: Comment on above: PATIENT WAS FASTINGP ERFORMED BY: FERN [facility] Sopfts27[address]Dublin [place] [id number] Cholesterol in VLDL [Mass/Vol] VLDLCH Normal 5-40 [facility] Work Phone: Comment on above: The calculation for the VLDL cholesterol is not valid whentriglyceride level is >400 mg/dL.Triglyceride result indicated is too high for an accurate LDLcholesterol estimation. PATIENT WAS FASTINGP ERFORMED BY: CB [facility] Kbutmk5031 [address]Dublin [place] [id number] Triglyceride [Mass/Vol] 417 mg/dL Abnormal 0-149 [facility] Work Phone: Comment on above: PATIENT WAS FASTINGP ERFORMED BY: [facility] Dgxwcd5486 [address] RoadDublin [place] [id number] METABOLIC PANEL, COMPREHENSI VE (03066)Ordered By: Asphalt Paver Operator on 05-08-2019 Albumin [Mass/Vol] 4.6 g/dL Normal 3.5-5.5 [facility] Internal Medicine Work Phone: Comment on above: PATIENT WAS FASTINGP ERFORMED BY: [facility] Eceltv94[address]Dublin [place] [id number] Albumin/Globulin [Mass ratio] 1.7 {ratio} Normal 1.2-2.2 [facility] Work Phone: Comment on above: PATIENT WAS FASTINGP ERFORMED BY: [facility] Rmjwom8323 [address] RoadDublin [place] [id number] ALP [Catalytic activity/Vol] 108 [iU]/L Normal 39-117 [facility] Work Phone: Comment on above: PATIENT WAS FASTINGP ERFORMED BY: [facility] Iulejz9561 [address] RoadDublin [place] [id number] ALP [Catalytic activity/Vol] 108 U/L Normal 39-117 [facility]; [facility] Work Phone: Comment on above: PATIENT WAS FASTINGP ERFORMED BY: [facility] Spnxbk8318 [address] RoadDublin [place] [id number] ALT [Catalytic activity/Vol] 24 [iU]/L Normal 0-44 [facility] Work Phone: Comment on above: PATIENT WAS FASTINGP ERFORMED BY: [facility] Kdavxr7[address]Dublin [place] [id number] ALT [Catalytic activity/Vol] 24 U/L Normal 0-44 [facility]; [facility] Work Phone: Comment on above: PATIENT WAS FASTINGP ERFORMED BY: [facility] Dlopho1762 [address]Dublin [place] [id number] AST [Catalytic activity/Vol] 20 [iU]/L Normal 0-40 [facility] Work Phone: Comment on above: PATIENT WAS FASTINGP ERFORMED BY: [facility] Tfdtbz0922 [address] RoadDublin [place] [id number] AST [Catalytic activity/Vol] 20 U/L Normal 0-40 [facility]; [facility] Work Phone: Comment on above: PATIENT WAS FASTINGP ERFORMED BY: [facility] Nszsts6759 [address]Dublin [place] [id number] Bilirubin [Mass/Vol] 0.3 mg/dL Normal 0.0-1.2 [facility] Work Phone: Comment on above: PATIENT WAS FASTINGP ERFORMED BY: [facility] Njzkkh46[address]Dublin [place] [id number] Calcium [Mass/Vol] 10.0 mg/dL Normal 8.7-10.2 [facility] Internal Medicine Work Phone: Comment on above: PATIENT WAS FASTINGP ERFORMED BY: [facility] Wjsebx5[address]Dublin [place] [id number] Chloride [Moles/Vol] 101 mmol/L Normal 96-106 Comp [facility] Work Phone: Comment on above: PATIENT WAS FASTINGP ERFORMED BY: [facility] Pzugnl5350 [address]Dublin [place] [id number] CO2 [Moles/Vol] 22 mmol/L Normal 20-29 Comprehen [facility] Internal Medicine Work Phone: Comment on above: PATIENT WAS FASTINGP ERFORMED BY: [facility] Ezcfzl4281 [address]Dublin [place] [id number] Creatinine [Mass/Vol] 0.86 mg/dL Normal 0.76-1.27 [facility] Internal Medicine Work Phone: Comment on above: PATIENT WAS FASTINGP ERFORMED BY: CB [facility] Qrioua8224 [address] RoadDublin [place] [id number] GFR/1.73 sq M predicted among blacks CKD-EPI (S/P/Bld) [Vol rate/Area] 125 mL/min/1.73 Normal [facility] Internal Medicine Work Phone: Comment on above: PATIENT WAS FASTINGP ERFORMED BY: [facility] Jcloku7363 [address]Dublin [place] [id number] GFR/1.73 sq M predicted among non-blacks CKD-EPI (S/P/Bld) [Vol rate/Area] 108 mL/min/1.73 Normal [facility] Internal Medicine Work Phone: Comment on above: PATIENT WAS FASTINGP ERFORMED BY: [facility] Rhvfsn9803 [address]Dublin [place] [id number] Globulin (S) [Mass/Vol] 2.7 g/dL Normal 1.5-4.5 [facility] Internal Medicine Work Phone: Comment on above: PATIENT WAS FASTINGP ERFORMED BY: [facility] Cdhbyb77[address]Dublin [place] [id number] Glucose [Mass/Vol] 103 mg/dL Abnormal 65-99 [facility] Internal Medicine Work Phone: Comment on above: PATIENT WAS FASTINGP ERFORMED BY: [facility] Mgoopg3928 [address]Dublin [place] [id number] Potassium [Moles/Vol] 4.5 mmol/L Normal 3.5-5.2 [facility] Internal Medicine Work Phone: Comment on above: PATIENT WAS FASTINGP ERFORMED BY: CB [facility] Ncsfrj7808 [address]Dublin [place] [id number] Protein [Mass/Vol] 7.3 g/dL Normal 6.0-8.5 [facility] Internal Medicine Work Phone: Comment on above: PATIENT WAS FASTINGP ERFORMED BY: FERN LabKarolina Rosario[address] [facility]bl[facility] [place] [id number] Sodium [Moles/Vol] 139 mmol/L Normal 134-144 [facility] Internal Medicine Work Phone: Comment on above: PATIENT WAS FASTINGP ERFORMED BY: FERN LabLay Momqzf[address] [facility]in [place] [id number] Urea nitrogen [Mass/Vol] 9 mg/dL Normal 6-24 [facility] Work Phone: Comment on above: PATIENT WAS FASTINGP ERFORMED BY: FERN Rontrent Zmputu[address] [facility] [id number] Urea nitrogen/Creatinine [Mass ratio] 10 mg/mg Normal 9-20 [facility] Work Phone: Comment on above: PATIENT WAS FASTINGP ERFORMED BY: FERN [facility] Qggiwl6784 [address] [facility] [id number] Alkaline Phosphatase (24353) Ordered By: Asphalt Paver Operator on 08-27-2018 ALP [Catalytic activity/Vol] 133 [iU]/L Abnormal 39-117 [facility] Work Phone: Comment on above: PATIENT NOT FASTINGP ERFORMED BY: FERN Ron Lwanet[address] [facility]in [place] [id number] ALP [Catalytic activity/Vol] 133 U/L Abnormal 39-117 [facility]; [facility] Work Phone: Comment on above: PATIENT NOT FASTINGP ERFORMED BY: FERN [facility] Niwdpy9[address] [facility]blin [place] [id number] CBC W/AUTO DIFF WBC (20411)O rdered By: Asphalt Paver Operator on 08-27-2018 Basophils (Bld) [#/Vol] 0.0 {x10E3/uL} Normal 0.0-0.2 [facility] Work Phone: Comment on above: PATIENT NOT FASTINGP ERFORMED BY: FERN [facility] Xtifsr8227 [address] [facility]in [place] [id number] Basophils (Bld) [#/Vol] 0.0 10*3/uL Normal 0.0-0.2 [facility]; [facility] Work Phone: Comment on above: PATIENT NOT FASTINGP ERFORMED BY: CB [facility] Xijchu1526 [address] RoadDublin [place] [id number] Basophils/100 WBC (Bld) 0 % Normal [facility] Work Phone: Comment on above: PATIENT NOT FASTINGP ERFORMED BY: CB [facility] Ztcptz1936 [address]Dublin [place] [id number] Eosinophils (Bld) [#/Vol] 0.2 {x10E3/uL} Normal 0.0-0.4 [facility] Work Phone: Comment on above: PATIENT NOT FASTINGP ERFORMED BY: CB [facility] Kmxtze4628 [address]Duin [place] [id number] Eosinophils (Bld) [#/Vol] 0.2 10*3/uL Normal 0.0-0.4 [facility]; [facility] Work Phone: Comment on above: PATIENT NOT FASTINGP ERFORMED BY: [facility] Mftrfx5953 [address]Dublin [place] [id number] Eosinophils/100 WBC (Bld) 2 % Normal [facility] Work Phone: Comment on above: PATIENT NOT FASTINGP ERFORMED BY: [facility] Gclftf4622 [address] RoadDublin [place] [id number] Erythrocyte distribution width (RBC) [Ratio] 13.2 % Normal 12.3-15.4 [facility] Work Phone: Comment on above: PATIENT NOT FASTINGP ERFORMED BY: CB [facility] Wqddkd4130 [address] RoadDublin [place] [id number] Hematocrit (Bld) [Volume fraction] 45.8 % Normal 37.5-51.0 [facility] Work Phone: Comment on above: PATIENT NOT FASTINGP ERFORMED BY: CB [facility] Pbfvkk8112 [address] RoadDublin [place] [id number] Hemoglobin (Bld) [Mass/Vol] 16.0 g/dL Normal 13.0-17.7 [facility] Work Phone: Comment on above: PATIENT NOT FASTINGP ERFORMED BY: FERN LabKarolina Rosario6370 [address]Dublin [place] [id number] Immature granulocytes (Bld) [#/Vol] 0.0 {x10E3/uL} Normal 0.0-0.1 [facility] Work Phone: Comment on above: PATIENT NOT FASTINGP ERFORMED BY: CB [facility] Smebuy7247 [address] RoadDublin [place] [id number] Immature granulocytes (Bld) [#/Vol] 0.0 10*3/uL Normal 0.0-0.1 [facility]; [facility] Work Phone: Comment on above: PATIENT NOT FASTINGP ERFORMED BY: LabLay Csumds2725 [address] RoadDublin [place] [id number] Immature granulocytes/100 WBC (Bld) 0 % Normal [facility] Work Phone: Comment on above: PATIENT NOT FASTINGP ERFORMED BY: [facility] Mksnkf2668 [address] RoadDublin [place] [id number] Lymphocytes (Bld) [#/Vol] 2.7 {x10E3/uL} Normal 0.7-3.1 [facility] Work Phone: Comment on above: PATIENT NOT FASTINGP ERFORMED BY: [facility] Awkiwy6074 [address] RoadDublin [place] [id number] Lymphocytes (Bld) [#/Vol] 2.7 10*3/uL Normal 0.7-3.1 [facility]; [facility] Work Phone: Comment on above: PATIENT NOT FASTINGP ERFORMED BY: CB [facility] Llnvkl8229 [address] RoadDublin [place] [id number] Lymphocytes/100 WBC (Bld) 24 % Normal [facility] Work Phone: Comment on above: PATIENT NOT FASTINGP ERFORMED BY: CB [facility] Kdgbza9477 [address] RoadDublin [place] [id number] MCH (RBC) [Entitic mass] 31.8 pg Normal 26.6-33.0 [facility] Work Phone: Comment on above: PATIENT NOT FASTINGP ERFORMED BY: FERN [facility] Duumqe6635 [address] RoadDublin [place] [id number] MCHC (RBC) [Mass/Vol] 34.9 g/dL Normal 31.5-35.7 [facility] Internal Medicine Work Phone: Comment on above: PATIENT NOT FASTINGP ERFORMED BY: CB [facility] Lidasb0034 [address] RoadDublin [place] [id number] MCV (RBC) [Entitic vol] 91 fL Normal 79-97 [facility] Work Phone: Comment on above: PATIENT NOT FASTINGP ERFORMED BY: FERN [facility] Ozjqhi3481 [address]Dublin [place] [id number] Monocytes (Bld) [#/Vol] 0.9 {x10E3/uL} Normal 0.1-0.9 [facility] Work Phone: Comment on above: PATIENT NOT FASTINGP ERFORMED BY: CB [facility] Fygrel3677 [address] RoadDublin [place] [id number] Monocytes (Bld) [#/Vol] 0.9 10*3/uL Normal 0.1-0.9 [facility]; [facility] Work Phone: Comment on above: PATIENT NOT FASTINGP ERFORMED BY: CB [facility] Qajcfk9521 [address] RoadDublin [place] [id number] Monocytes/100 WBC (Bld) 8 % Normal [facility] Work Phone: Comment on above: PATIENT NOT FASTINGP ERFORMED BY: CB [facility] Ytlznz7612 [address] RoadDublin [place] [id number] Neutrophils (Bld) [#/Vol] 7.1 {x10E3/uL} Abnormal 1.4-7.0 [facility] Work Phone: Comment on above: PATIENT NOT FASTINGP ERFORMED BY: CB [facility] Rdwyuq2080 [address] RoadDublin [place] [id number] Neutrophils (Bld) [#/Vol] 7.1 10*3/uL Abnormal 1.4-7.0 [facility]; [facility] Work Phone: Comment on above: PATIENT NOT FASTINGP ERFORMED BY: CB [facility] Nlqfgq5116 [address] RoadDublin [place] [id number] Neutrophils/100 WBC (Bld) 66 % Normal [facility] Work Phone: Comment on above: PATIENT NOT FASTINGP ERFORMED BY: CB [facility] Bsvckl8174 [address] RoadDublin [place] [id number] Platelets (Bld) [#/Vol] 286 {x10E3/uL} Normal 150-379 [facility] Work Phone: Comment on above: PATIENT NOT FASTINGP ERFORMED BY: CB [facility] Lojqju4702 [address] RoadDublin [place] [id number] Platelets (Bld) [#/Vol] 286 10*3/uL Normal 150-379 [facility]; [facility] Work Phone: Comment on above: PATIENT NOT FASTINGP ERFORMED BY: CB [facility] Ycsenq9878 [address] RoadDublin [place] [id number] RBC (Bld) [#/Vol] 5.03 {x10E6/uL} Normal 4.14-5.80 [facility] Internal Medicine Work Phone: Comment on above: PATIENT NOT FASTINGP ERFORMED BY: CB [facility] Miuyla3398 [address] RoadDublin [place] [id number] RBC (Bld) [#/Vol] 5.03 10*6/uL Normal 4.14-5.80 [facility]; [facility] Work Phone: Comment on above: PATIENT NOT FASTINGP ERFORMED BY: CB [facility] Tudicx4571 [address] RoadDublin [place] [id number] WBC (Bld) [#/Vol] 10.9 {x10E3/uL} Abnormal 3.4-10.8 [facility] Internal Medicine Work Phone: Comment on above: PATIENT NOT FASTINGP ERFORMED BY: FERN [facility] Utluqp6953 [address] RoadDublin [place] [id number] WBC (Bld) [#/Vol] 10.9 10*3/uL Abnormal 3.4-10.8 [facility] Internal Medicine; [facility] Work Phone: Comment on above: PATIENT NOT FASTINGP ERFORMED BY: CB [facility] Xvhnnn9320 [address]bl[address] [place] [id number] GGT (Gamma Glutamyl Transfer ase) (24811)Ordered By: Asphalt Paver Operator on 08-27-2018 Gamma glutamyl transferase [Catalytic activity/Vol] 27 [iU]/L Normal 0-65 [facility] Work Phone: Comment on above: PATIENT NOT FASTINGP ERFORMED BY: FERN [facility] Osyyfp7802 [address] RoadDublin [place] [id number] Gamma glutamyl transferase [Catalytic activity/Vol] 27 U/L Normal 0-65 [facility]; [facility] Work Phone: Comment on above: PATIENT NOT FASTINGP ERFORMED BY: FERN [facility] Qtndog8124 [address] RoadDublin [place] [id number] MICROALBUMINOrdered By: Syst em Dance Coach on 08-27-2018 Albumin DL <= 20 mg/L (U) [Mass/Vol] 7.9 ug/mL Normal [facility] Work Phone: Comment on above: PATIENT NOT FASTINGP ERFORMED BY: FERN [facility] Wtlfnm[address] [facility]in [place] [id number] Albumin/Creatinine (U) [Mass ratio] 12.1 {mg/g_creat} Normal 0.0-30.0 [facility] Work Phone: Comment on above: Normal: 0.0 - 30.0 A lbuminuria: 31.0 - 300.0 Clinical albuminuria: >300.0 PATIENT NOT FASTINGP ERFORMED BY: FERN [facility] Nyfovy0037 [address] RoadDublin [place] [id number] Creatinine (U) [Mass/Vol] 65.2 mg/dL Normal [facility] Work Phone: Comment on above: PATIENT NOT FASTINGP ERFORMED BY: FERN [facility] Trijop4510 [address] RoadDublin [place] [id number] Microscopic ExaminationOrder ed By: Asphalt Paver Operator on 08-27-2018 Bacteria LM.HPF (Urine sed) [#/Area] None seen Normal [facility] Work Phone: Comment on above: PATIENT NOT FASTINGP ERFORMED BY: FERN [facility] Czwgjv3055 [address] RoadDublin [place] [id number] Epithelial cells LM.HPF (Urine sed) [#/Area] None seen Normal 0 - 10 [facility] Work Phone: Comment on above: PATIENT NOT FASTINGP ERFORMED BY: FERN [facility] Mutpmj9861 [address] RoadDublin [place] [id number] RBC LM.HPF (Urine sed) [#/Area] None seen Normal 0 - 2 [facility] Work Phone: Comment on above: PATIENT NOT FASTINGP ERFORMED BY: FERN [facility] Ewixag7164 [address] RoadDublin [place] [id number] WBC LM.HPF (Urine sed) [#/Area] None seen Normal 0 - 5 [facility] Work Phone: Comment on above: PATIENT NOT FASTINGP ERFORMED BY: FERN LabCotrent MaciasQbhlpk0691 [address] RoadDublin [place] [id number] URINALYSIS, W/ MICRO (40745) Ordered By: Asphalt Paver Operator on 08-27-2018 Appearance (U) Clear Normal [facility] Work Phone: Comment on above: PATIENT NOT FASTINGP ERFORMED BY: FERN [facility] Kbmyou2665 [address] RoadDublin [place] [id number] Bilirubin Ql (U) Negative Normal Comprehe nsive Internal Medicine Work Phone: Comment on above: PATIENT NOT FASTINGP ERFORMED BY: FERN [facility] Ozvcbz8952 [address] RoadDublin [place] [id number] Bilirubin Ql (U) Negative Normal Comprehe nsive Internal Medicine; [facility] Work Phone: Comment on above: PATIENT NOT FASTINGP ERFORMED BY: CB [facility] Ofetas1508 [address] RoadDublin [place] [id number] Color (U) Yellow Normal [facility] Work Phone: Comment on above: PATIENT NOT FASTINGP ERFORMED BY: FERN Rosario6370 [address]Dublin [place] [id number] Glucose Ql (U) Trace Abnormal [facility] Work Phone: Comment on above: PATIENT NOT FASTINGP ERFORMED BY: FERN Martin70 [address]Dublin [place] [id number] Hemoglobin Ql (U) Negative Normal Compreh ensive Internal Medicine Work Phone: Comment on above: PATIENT NOT FASTINGP ERFORMED BY: FERN Martin70 [address]Dublin [place] [id number] Hemoglobin Ql (U) Negative Normal Compreh ensive Internal Medicine; [facility] Work Phone: Comment on above: PATIENT NOT FASTINGP ERFORMED BY: FERN Martin70 [address]Duin [place] [id number] Ketones Ql (U) Negative Normal [facility] Work Phone: Comment on above: PATIENT NOT FASTINGP ERFORMED BY: FERN Martin70 [address]Duin [place] [id number] Ketones Ql (U) Negative Normal [facility]; [facility] Work Phone: Comment on above: PATIENT NOT FASTINGP ERFORMED BY: FERN Martin70 [address]Duin [place] [id number] Leukocyte esterase Test strip Ql (U) Negative Normal [facility] Work Phone: Comment on above: PATIENT NOT FASTINGP ERFORMED BY: FERN Rosario6370 [address]Dublin [place] [id number] Leukocyte esterase Test strip Ql (U) Negative Normal [facility]; [facility] Work Phone: Comment on above: PATIENT NOT FASTINGP ERFORMED BY: FERN Genet Oztnpj9746 [address] RoadDublin [place] [id number] Microscopic observation LM Nom (Urine sed) See below: Normal [facility] Work Phone: Comment on above: Microscopic was tj cated and was performed. PATIENT NOT FASTINGP ERFORMED BY: FERN Rosario6[address] [facility] [id number] Microscopic observation LM Nom (Urine sed) MICRON Normal [facility] Work Phone: Comment on above: Microscopic follows if indicated. PATIENT NOT FASTINGP ERFORMED BY: FERN Rosario6[address] [facility] [id number] Nitrite Ql (U) Negative Normal [facility] Work Phone: Comment on above: PATIENT NOT FASTINGP ERFORMED BY: FERN Rosario6[address] [facility] [id number] Nitrite Ql (U) Negative Normal [facility]; [facility] Work Phone: Comment on above: PATIENT NOT FASTINGP ERFORMED BY: FERN Rosario6370 [facility] [id number] pH (U) 6.0 [pH] Normal 5.0-7.5 [facility] Work Phone: Comment on above: PATIENT NOT FASTINGP ERFORMED BY: FERN Rosario6370 [facility] [id number] Protein Ql (U) Negative Normal [facility] Work Phone: Comment on above: PATIENT NOT FASTINGP ERFORMED BY: FERN Rosario6[address] [facility] [id number] Protein Ql (U) Negative Normal [facility]; [facility] Work Phone: Comment on above: PATIENT NOT FASTINGP ERFORMED BY: FERN Rosario6[address] [facility] [id number] Specific gravity (U) [Rel density] 1.011 1 Normal 1.005-1.030 [facility] Work Phone: Comment on above: PATIENT NOT FASTINGP ERFORMED BY: FERN Maciaslin6370 [facility] [place] [id number] Urobilinogen (U) [Mass/Vol] 0.2 mg/dL Normal 0.2-1.0 [facility]; [facility] Internal Medicine Work Phone: Comment on above: PATIENT NOT FASTINGP ERFORMED BY: [facility] Szhgaz3570 [address] RoadDublin [place] [id number] Urobilinogen Test strip (U) [Mass/Vol] 0.2 mg/dL Normal 0.2-1.0 [facility] Internal [facility] Work Phone: Comment on above: PATIENT NOT FASTINGP ERFORMED BY: [facility] Qezrjz4560 [address] [facility]blin [place] [id number] CALCIFEDIOL (15486)Ordered B y: Asphalt Paver Operator on 08-13-2018 25-Hydroxyvitamin D2+25-Hydroxyvitamin D3 [Mass/Vol] 31.8 ng/mL Normal 30.0-100.0 [facility] Internal Medicine Work Phone: Comment on above: Vitamin D deficiency has been defined by the [place] of[employer] and an Endocrine Society practice guideline as alevel of serum 25-OH vitamin D less than 20 ng/mL (1,2).The Endocrine Society went on to further define vitamin Dinsufficiency as a level between 21 and 29 ng/mL (2).1. IOM ([place] of [employer]). 2010. Dietary reference intakes for calcium and D. [place]: The National Academies Press.2. Aurelia MF, Freddy NC, Emi AZAR, et al. Evaluation, treatment, and prevention of vitamin D deficiency: an Endocrine Society clinical practice guideline. JCEM. 2010; 96(7):1911-30. PATIENT WAS FASTINGP ERFORMED BY: [facility] Ztrtql8816 [address] [facility] HospitalD[facility] [place] [id number] HEPATIC FUNCTION PANEL (8007 6)Ordered By: Asphalt Paver Operator on 08-13-2018 Bilirubin.direct [Mass/Vol] 0.14 mg/dL Normal 0.00-0.40 [facility] Internal Medicine Work Phone: Comment on above: PATIENT WAS FASTINGP ERFORMED BY: [facility] Hdagsv4854 [address] [facility] [place] [id number] LIPID PANEL (02615)Ordered B y: Asphalt Paver Operator on 08-13-2018 Cholesterol [Mass/Vol] 178 mg/dL Normal 100-199 [facility] Internal Medicine Work Phone: Comment on above: PATIENT WAS FASTINGP ERFORMED BY: FERN LabKarolina Fdxnyu9620 [address]Dublin [place] [id number] Cholesterol in HDL [Mass/Vol] 36 mg/dL Abnormal [facility] Work Phone: Comment on above: PATIENT WAS FASTINGP ERFORMED BY: FERN LabCotrent MaciasLulqqi2888 [address] [facility]bl[facility] [place] [id number] Cholesterol in LDL [Mass/Vol] 62 mg/dL Normal 0-99 [facility] Work Phone: Comment on above: PATIENT WAS FASTINGP ERFORMED BY: FERN LabKarolina MaciasXngugv3247 [address] [facility]in [place] [id number] Cholesterol in LDL/Cholesterol in HDL [Mass ratio] 1.7 {ratio} Normal 0.0-3.6 [facility] Work Phone: Comment on above: LDL/HDL Ratio Men Wo men 1/2 Avg.Risk 1.0 1.5 Avg.Risk 3.6 3.2 2X Avg.Risk 6.2 5.0 3X Avg.Risk 8.0 6.1 PATIENT WAS FASTINGP ERFORMED BY: FERN LabCotrent Ufnade7658 [address] [facility]in [place] [id number] Cholesterol in VLDL [Mass/Vol] 80 mg/dL Abnormal 5-40 [facility] Work Phone: Comment on above: PATIENT WAS FASTINGP ERFORMED BY: FERN [facility] Ypqjjm0535 [address] [facility] HospitalD[facility] [place] [id number] Triglyceride [Mass/Vol] 400 mg/dL Abnormal 0-149 [facility] Work Phone: Comment on above: PATIENT WAS FASTINGP ERFORMED BY: FERN [facility] Epglfm7321 [address]Dublin [place] [id number] METABOLIC PANEL, COMPREHENSI VE (13143)Ordered By: Asphalt Paver Operator on 08-13-2018 Albumin [Mass/Vol] 4.6 g/dL Normal 3.5-5.5 [facility] Internal Medicine Work Phone: Comment on above: PATIENT WAS FASTINGP ERFORMED BY: FERN LabCotrent MaciasJmxjdu8245 Joyner RoadCommunity Healthin [place] [id number] Information: NURSE DRAW Albumin/Globulin [Mass ratio] 1.6 {ratio} Normal 1.2-2.2 [facility] Work Phone: Comment on above: PATIENT WAS FASTINGP ERFORMED BY: FERN [facility] Ygvzlt7300 Joyner RoadCommunity Healthin [place] [id number] Information: NURSE DRAW ALP [Catalytic activity/Vol] 128 [iU]/L Abnormal 39-117 [facility] Work Phone: Comment on above: PATIENT WAS FASTINGP ERFORMED BY: FERN LabCotrent MaciasCfikgj4693 Joyner RoadUNC Health Pardee [id number] Information: NURSE DRAW ALP [Catalytic activity/Vol] 128 U/L Abnormal 39-117 [facility]; [facility] Work Phone: Comment on above: PATIENT WAS FASTINGP ERFORMED BY: FERN LabCotrent MaciasOtlxwr2572 [address] [facility] [id number] Information: NURSE DRAW ALT [Catalytic activity/Vol] 34 [iU]/L Normal 0-44 [facility] Work Phone: Comment on above: PATIENT WAS FASTINGP ERFORMED BY: FERN [facility] Whfppr9144 [address] [facility] [id number] Information: NURSE DRAW ALT [Catalytic activity/Vol] 34 U/L Normal 0-44 [facility]; [facility] Work Phone: Comment on above: PATIENT WAS FASTINGP ERFORMED BY: FERN [facility] Dcunvp4966 [address] [facility] [id number] Information: NURSE DRAW AST [Catalytic activity/Vol] 35 [iU]/L Normal 0-40 [facility] Work Phone: Comment on above: PATIENT WAS FASTINGP ERFORMED BY: FERN [facility] Yywwim7165 [address] [facility] [id number] Information: NURSE DRAW AST [Catalytic activity/Vol] 35 U/L Normal 0-40 [facility]; [facility] Work Phone: Comment on above: PATIENT WAS FASTINGP ERFORMED BY: FERN [facility] Zxvgip9915 [facility] [id number] Information: NURSE DRAW Bilirubin [Mass/Vol] 0.4 mg/dL Normal 0.0-1.2 [facility] Phone: Comment on above: PATIENT WAS FASTINGP ERFORMED BY: [facility]6370 [facility] [id number] Information: NURSE DRAW Calcium [Mass/Vol] 9.8 mg/dL Normal 8.7-10.2 [facility] Internal Medicine Work Phone: Comment on above: PATIENT WAS FASTINGP ERFORMED BY: FERN [place] [id number] [facility] [id number] Information: NURSE DRAW Chloride [Moles/Vol] 102 mmol/L Normal 96-106 [facility] Work Phone: Comment on above: PATIENT WAS FASTINGP ERFORMED BY: FERN [facility]6370 [facility] [id number] Information: NURSE DRAW CO2 [Moles/Vol] 20 mmol/L Normal 20-[address] [facility] Internal Medicine Work Phone: Comment on above: PATIENT WAS FASTINGP ERFORMED BY: [place] 9008570 [facility] [id number] Information: NURSE DRAW Creatinine [Mass/Vol] 0.85 mg/dL Normal 0.76-1.27 [facility] Work Phone: Comment on above: PATIENT WAS FASTINGP ERFORMED BY: [place] [id number] [facility] [id number] Information: NURSE DRAW GFR/1.73 sq M predicted among blacks CKD-EPI (S/P/Bld) [Vol rate/Area] 125 mL/min/1.73 Normal [facility] Internal Medicine Work Phone: Comment on above: PATIENT WAS FASTINGP ERFORMED BY: [place] 9008570 [facility] [id number] Information: NURSE DRAW GFR/1.73 sq M predicted among non-blacks CKD-EPI (S/P/Bld) [Vol rate/Area] 108 mL/min/1.73 Normal [facility] Internal Medicine Work Phone: Comment on above: PATIENT WAS FASTINGP ERFORMED BY: [address] [id number] Information: NURSE DRAW Globulin (S) [Mass/Vol] 2.9 g/dL Normal 1.5-4.5 [facility] Internal Medicine Work Phone: Comment on above: PATIENT WAS FASTINGP ERFORMED BY: [address] [id number] Information: NURSE DRAW Glucose [Mass/Vol] 125 mg/dL Abnormal 65-99 [facility] Internal Medicine Work Phone: Comment on above: Specimen received in contact with cells. No visible hemolysispresent. However GLUC may be decreased and K increased. Clinicalcorrelation indicated. PATIENT WAS FASTINGP ERFORMED BY: [place] 9008570 [facility] [id number] Information: NURSE DRAW Potassium [Moles/Vol] 4.8 mmol/L Normal 3.5-5.2 [facility] Internal Medicine Work Phone: Comment on above: Specimen received in contact with cells. No visible hemolysispresent. However GLUC may be decreased and K increased. Clinicalcorrelation indicated. PATIENT WAS FASTINGP ERFORMED BY: [place] 9008570 [facility] [id number] Information: NURSE DRAW Protein [Mass/Vol] 7.5 g/dL Normal 6.0-8.5 [facility] Internal Medicine Work Phone: Comment on above: PATIENT WAS FASTINGP ERFORMED BY: [place] 9008570 [facility] [id number] Information: NURSE DRAW Sodium [Moles/Vol] 142 mmol/L Normal 134-144 Compre [facility] Internal Medicine Work Phone: Comment on above: PATIENT WAS FASTINGP ERFORMED BY: [facility]6370 [facility] [id number] Information: NURSE DRAW Urea nitrogen [Mass/Vol] 10 mg/dL Normal 6-24 [facility] Work Phone: Comment on above: PATIENT WAS FASTINGP ERFORMED BY: LabCoEast Orange General HospitalPynjfu6413 [facility] [id number] Information: NURSE DRAW Urea nitrogen/Creatinine [Mass ratio] 12 mg/mg Normal 9-20 [facility] Work Phone: Comment on above: PATIENT WAS FASTINGP ERFORMED BY: [facility]6370 [facility] [id number] Information: NURSE DRAW PPD (74057)Ordered By: Linda Dasilva on 09-12-2016 PPD (87515) Negative Normal [facility] Work Phone: Comment on above: .01 given on 09/09 given lt arm lot [id number] exp 10/24 PPD (16382) Negative Normal [facility]; [facility] Work Phone: Comment on above: .01 given on 09/09 given lt arm lot [id number] exp 10/24 CBC WITH MANUAL DIFF (86195) Ordered By: Asphalt Paver Operator on 11-20-2012 Basophils (Bld) [#/Vol] 0.0 {x10E3/uL} Normal 0.0-0.2 [facility] Work Phone: Comment on above: PATIENT WAS FASTINGP ERFORMED BY: [facility]6370 [facility] [id number] Information: [id number],[id number] Basophils (Bld) [#/Vol] 0.0 10*3/uL Normal 0.0-0.2 [facility]; [facility] Work Phone: Comment on above: PATIENT WAS FASTINGP ERFORMED BY: [facility]6370 [facility] [id number] Information: 897610,[id number] Basophils/100 WBC (Bld) 0 % Normal 0-3 [facility] Work Phone: Comment on above: PATIENT WAS FASTINGP ERFORMED BY: [address] [id number] Information: [id number],[id number] Eosinophils (Bld) [#/Vol] 0.2 {x10E3/uL} Normal 0.0-0.4 [facility] Work Phone: Comment on above: PATIENT WAS FASTINGP ERFORMED BY: [address] [id number] Information: 656030,[id number] Eosinophils (Bld) [#/Vol] 0.2 10*3/uL Normal 0.0-0.4 [facility]; [facility] Work Phone: Comment on above: PATIENT WAS FASTINGP ERFORMED BY: [address] [id number] Information: 245200,[id number] Eosinophils/100 WBC (Bld) 2 % Normal 0-7 [facility] Work Phone: Comment on above: PATIENT WAS FASTINGP ERFORMED BY: [address] [id number] Information: 482998,D99487 Erythrocyte distribution width (RBC) [Ratio] 13.3 % Normal 12.3-15.4 [facility] Work Phone: Comment on above: PATIENT WAS FASTINGP ERFORMED BY: [address] [id number] Information: [id number],[id number] Hematocrit (Bld) [Volume fraction] 47.5 % Normal 37.5-51.0 [facility] Work Phone: Comment on above: PATIENT WAS FASTINGP ERFORMED BY: [place] 9008570 [facility] [id number] Information: 192054,[id number] Hemoglobin (Bld) [Mass/Vol] 16.3 g/dL Normal 12.6-17.7 [facility] Work Phone: Comment on above: PATIENT WAS FASTINGP ERFORMED BY: [address] [id number] Information: 077170,[id number] Immature granulocytes (Bld) [#/Vol] 0.0 {x10E3/uL} Normal 0.0-0.1 [facility] Work Phone: Comment on above: PATIENT WAS FASTINGP ERFORMED BY: [address] [id number] Information: 735484,[id number] Immature granulocytes (Bld) [#/Vol] 0.0 10*3/uL Normal 0.0-0.1 [facility]; [facility] Work Phone: Comment on above: PATIENT WAS FASTINGP ERFORMED BY: [address] [id number] Information: 265841,S37253 Immature granulocytes/100 WBC (Bld) 0 % Normal 0-2 [facility] Work Phone: Comment on above: PATIENT WAS FASTINGP ERFORMED BY: [address] [id number] Information: 046422,M29370 Lymphocytes (Bld) [#/Vol] 3.0 {x10E3/uL} Normal 0.7-4.5 [facility] Work Phone: Comment on above: PATIENT WAS FASTINGP ERFORMED BY: [address] [id number] Information: 781347,V44971 Lymphocytes (Bld) [#/Vol] 3.0 10*3/uL Normal 0.7-4.5 [facility]; [facility] Work Phone: Comment on above: PATIENT WAS FASTINGP ERFORMED BY: FERN PerezEmily [place] 9846970 [facility] [id number] Information: 679954,S82547 Lymphocytes/100 WBC (Bld) 32 % Normal 14-46 [facility] Work Phone: Comment on above: PATIENT WAS FASTINGP ERFORMED BY: [address] [id number] Information: 435093,[id number] MCH (RBC) [Entitic mass] 31.2 pg Normal 26.6-33.0 [facility] Internal Medicine Work Phone: Comment on above: PATIENT WAS FASTINGP ERFORMED BY: [address] [id number] Information: 608824,[id number] MCHC (RBC) [Mass/Vol] 34.3 g/dL Normal 31.5-35.7 [facility] Internal Medicine Work Phone: Comment on above: PATIENT WAS FASTINGP ERFORMED BY: [address] [id number] Information: 515741,N57266 MCV (RBC) [Entitic vol] 91 fL Normal 79-97 [facility] Internal Medicine Work Phone: Comment on above: PATIENT WAS FASTINGP ERFORMED BY: [address] [id number] Information: 188007,[id number] Monocytes (Bld) [#/Vol] 0.6 {x10E3/uL} Normal 0.1-1.0 [facility] Internal Medicine Work Phone: Comment on above: PATIENT WAS FASTINGP ERFORMED BY: [place] 9008570 [facility] [id number] Information: 247882,I98131 Monocytes (Bld) [#/Vol] 0.6 10*3/uL Normal 0.1-1.0 [facility]; [facility] Work Phone: Comment on above: PATIENT WAS FASTINGP ERFORMED BY: FERN [facility] [id number] Information: 059027,F48064 Monocytes/100 WBC (Bld) 7 % Normal 4-13 [facility] Work Phone: Comment on above: PATIENT WAS FASTINGP ERFORMED BY: FERN Ramirez [facility] [id number] Information: 562682,I79133 Neutrophils (Bld) [#/Vol] 5.6 {x10E3/uL} Normal 1.8-7.8 [facility] Work Phone: Comment on above: PATIENT WAS FASTINGP ERFORMED BY: FERN Rosario6370 [facility] [id number] Information: 674146,F38566 Neutrophils (Bld) [#/Vol] 5.6 10*3/uL Normal 1.8-7.8 [facility]; [facility] Work Phone: Comment on above: PATIENT WAS FASTINGP ERFORMED BY: FERN Ramirez [facility] [id number] Information: 424558,[id number] Neutrophils/100 WBC (Bld) 59 % Normal 40-74 [facility] Work Phone: Comment on above: PATIENT WAS FASTINGP ERFORMED BY: FERN Rosario6370 [facility] [id number] Information: 772148,Q15622 Platelets (Bld) [#/Vol] 282 {x10E3/uL} Normal 140-415 [facility] Work Phone: Comment on above: PATIENT WAS FASTINGP ERFORMED BY: FERN Maciaslin6370 [facility] [id number] Information: 391742,[id number] Platelets (Bld) [#/Vol] 282 10*3/uL Normal 140-415 [facility]; [facility] Work Phone: Comment on above: PATIENT WAS FASTINGP ERFORMED BY: FERN LabCotrent RosarioCotjjc3821 [facility] [id number] Information: 272603,X96820 RBC (Bld) [#/Vol] 5.22 {x10E6/uL} Normal 4.14-5.80 [facility] Work Phone: Comment on above: PATIENT WAS FASTINGP ERFORMED BY: FERN LabCo Jsfqwb4357 [facility] [id number] Information: 256539,T39900 RBC (Bld) [#/Vol] 5.22 10*6/uL Normal 4.14-5.80 [facility] Internal Medicine; [facility] Work Phone: Comment on above: PATIENT WAS FASTINGP ERFORMED BY: FERN [facility] Eajzxs0928 [facility] [id number] Information: 387051,[id number] WBC (Bld) [#/Vol] 9.5 {x10E3/uL} Normal 4.0-10.5 [facility] Work Phone: Comment on above: PATIENT WAS FASTINGP ERFORMED BY: FERN Rontrent Etrjxi8973 [facility] [id number] Information: 798691,Q77313 WBC (Bld) [#/Vol] 9.5 10*3/uL Normal 4.0-10.5 [facility]; [facility] Work Phone: Comment on above: PATIENT WAS FASTINGP ERFORMED BY: [facility] Ruhlnb0031 [facility] [id number] Information: 706459,N32989 LIPID PANEL (34306)Ordered B y: Asphalt Paver Operator on 11-20-2012 Cholesterol [Mass/Vol] 266 mg/dL Abnormal 100-199 [facility] Work Phone: Comment on above: PATIENT WAS FASTINGP ERFORMED BY: FERN [facility] Dnbheo7543 [facility]in [place] [id number] Cholesterol in HDL [Mass/Vol] 39 mg/dL Abnormal [facility] Work Phone: Comment on above: According to ATP-III Guidelines, HDL-C >59 mg/dL is considered anegative risk factor for CHD. PATIENT WAS FASTINGP ERFORMED BY: FERN [facility] Cbqqhw6949 [address] [facility] [place] [id number] Cholesterol in LDL [Mass/Vol] 152 mg/dL Abnormal 0-99 [facility] Work Phone: Comment on above: PATIENT WAS FASTINGP ERFORMED BY: CB [facility] Ifdxpo1822 [address] [facility] [place] [id number] Cholesterol in LDL/Cholesterol in HDL [Mass ratio] 3.9 {ratio_units} Abnormal 0.0-3.6 [facility] Work Phone: Comment on above: PATIENT WAS FASTINGP ERFORMED BY: [facility] Muacjq0239 [address] [facility] [id number] Cholesterol in VLDL [Mass/Vol] 75 mg/dL Abnormal 5-40 [facility] Work Phone: Comment on above: PATIENT WAS FASTINGP ERFORMED BY: FERN [facility] Zzogfl0628 [facility] [id number] Triglyceride [Mass/Vol] 373 mg/dL Abnormal 0-149 [facility] Work Phone: Comment on above: PATIENT WAS FASTINGP ERFORMED BY: [facility] Nydosl5193 [facility] [id number] METABOLIC PANEL, COMPREHENSI VE (40196)Ordered By: Asphalt Paver Operator on 11-20-2012 Albumin [Mass/Vol] 5.1 g/dL Normal 3.5-5.5 [facility]pre [facility] Internal Medicine Work Phone: Comment on above: PATIENT WAS FASTINGP ERFORMED BY: CB [facility] Mprqfk7968 [address] [facility] [id number] Albumin/Globulin [Mass ratio] 1.6 {ratio} Normal 1.1-2.5 [facility] Work Phone: Comment on above: PATIENT WAS FASTINGP ERFORMED BY: FERN LabCotrent Hhbyec9396 Joyner RoadDublin [place] [id number] ALP [Catalytic activity/Vol] 106 [iU]/L Normal 25-150 [facility] Work Phone: Comment on above: PATIENT WAS FASTINGP ERFORMED BY: FERN [facility] Kxtbrx9355 [address]ner RoadDublin [place] [id number] ALP [Catalytic activity/Vol] 106 U/L Normal 25-150 [facility]; [facility] Work Phone: Comment on above: PATIENT WAS FASTINGP ERFORMED BY: FERN [facility] Drbyqg2600 Joyner RoadDublin [place] [id number] ALT [Catalytic activity/Vol] 20 [iU]/L Normal 0-44 [facility] Work Phone: Comment on above: PATIENT WAS FASTINGP ERFORMED BY: FERN Maciaslin6370 [address] RoadDublin [place] [id number] ALT [Catalytic activity/Vol] 20 U/L Normal 0-44 [facility]; [facility] Work Phone: Comment on above: PATIENT WAS FASTINGP ERFORMED BY: FERN Maciaslin6370 [address] RoadDublin [place] [id number] AST [Catalytic activity/Vol] 17 [iU]/L Normal 0-40 [facility] Work Phone: Comment on above: PATIENT WAS FASTINGP ERFORMED BY: FERN [facility] Lcuucj6973 Joyner RoadDublin [place] [id number] AST [Catalytic activity/Vol] 17 U/L Normal 0-40 [facility]; [facility] Work Phone: Comment on above: PATIENT WAS FASTINGP ERFORMED BY: FERN [facility] Mjodfm7582 [address]ner RoadDublin [place] [id number] Bilirubin [Mass/Vol] 0.7 mg/dL Normal 0.0-1.2 Comp [facility] Internal Medicine Work Phone: Comment on above: PATIENT WAS FASTINGP ERFORMED BY: FERN [facility] Wzsnas3758 Joyner RoadDublin [place] [id number] Calcium [Mass/Vol] 10.1 mg/dL Normal 8.7-10.2 [facility] Internal Medicine Work Phone: Comment on above: PATIENT WAS FASTINGP ERFORMED BY: FERN [facility] Hhcivl2851 [address]ner RoadDublin [place] [id number] Chloride [Moles/Vol] 97 mmol/L Normal 97-108 Comp [facility] Work Phone: Comment on above: PATIENT WAS FASTINGP ERFORMED BY: CB [facility] Cyyfcc1781 Joyner Roadblin [place] [id number] CO2 [Moles/Vol] 21 mmol/L Normal 20-[address] [facility] Internal Medicine Work Phone: Comment on above: PATIENT WAS FASTINGP ERFORMED BY: [facility] Zyzmsh1102 Joyner RoadUNC Health Pardee [id number] Creatinine [Mass/Vol] 0.81 mg/dL Normal 0.76-1.27 [facility] Internal Medicine Work Phone: Comment on above: PATIENT WAS FASTINGP ERFORMED BY: [facility] Niqmum4869 Joyner RoadDuin [place] [id number] GFR/1.73 sq M predicted among blacks CKD-EPI (S/P/Bld) [Vol rate/Area] 133 mL/min/1.73 Normal [facility] Work Phone: Comment on above: PATIENT WAS FASTINGP ERFORMED BY: [facility] Tkkoew5246 [address]ner RoadCommunity Healthin [place] [id number] GFR/1.73 sq M predicted among non-blacks CKD-EPI (S/P/Bld) [Vol rate/Area] 115 mL/min/1.73 Normal [facility] Work Phone: Comment on above: PATIENT WAS FASTINGP ERFORMED BY: [facility] Phmeir5736 Joyner Roadblin [place] [id number] Globulin (S) [Mass/Vol] 3.1 g/dL Normal 1.5-4.5 [facility] Work Phone: Comment on above: PATIENT WAS FASTINGP ERFORMED BY: FERN Rosario6370 [address] RoadDublin [place] [id number] Glucose [Mass/Vol] 252 mg/dL Abnormal 65-99 [facility] Internal Medicine Work Phone: Comment on above: PATIENT WAS FASTINGP ERFORMED BY: FERN Rosario6370 [address] RoadDublin [place] [id number] Potassium [Moles/Vol] 4.2 mmol/L Normal 3.5-5.2 [facility] Internal Medicine Work Phone: Comment on above: PATIENT WAS FASTINGP ERFORMED BY: FERN Maciaslin6370 [address]ner RoadCommunity Healthin [place] [id number] Protein [Mass/Vol] 8.2 g/dL Normal 6.0-8.5 [facility] Internal Medicine Work Phone: Comment on above: PATIENT WAS FASTINGP ERFORMED BY: FERN Rosario6370 [address] [facility] [place] [id number] Sodium [Moles/Vol] 136 mmol/L Normal 134-144 [facility] Internal Medicine Work Phone: Comment on above: PATIENT WAS FASTINGP ERFORMED BY: FERN Maciaslin6370 [address] [facility]in [place] [id number] Urea nitrogen [Mass/Vol] 12 mg/dL Normal 6-20 [facility] Internal Medicine Work Phone: Comment on above: PATIENT WAS FASTINGP ERFORMED BY: FERN Maciaslin6370 [address] [facility] [id number] Urea nitrogen/Creatinine [Mass ratio] 15 mg/mg Normal 8-19 [facility] Internal Medicine Work Phone: Comment on above: PATIENT WAS FASTINGP ERFORMED BY: FERN Maciaslin6370 [address] [facility]in [place] [id number] MICROALBUMINOrdered By: Syst em Dance Coach on 11-20-2012 Albumin DL <= 20 mg/L (U) [Mass/Vol] 6.0 ug/mL Normal 0.0-17.0 [facility] Internal Medicine Work Phone: Comment on above: PATIENT WAS FASTINGP ERFORMED BY: [facility] Kmzfek5330 [address]ner RoadDublin [place] [id number] Albumin/Creatinine (U) [Mass ratio] 6.6 {mg/g_creat} Normal 0.0-30.0 [facility] Internal Medicine Work Phone: Comment on above: PATIENT WAS FASTINGP ERFORMED BY: CB [facility] Bsqyte5402 [address] RoadDublin [place] [id number] Creatinine (U) [Mass/Vol] 90.6 mg/dL Normal 24.0-392.0 [facility] Work Phone: Comment on above: PATIENT WAS FASTINGP ERFORMED BY: CB [facility] Nbhnhd6633 [address] RoadDublin [place] [id number] TSH (79912)Ordered By: eVropae m Dance Coach on 11-20-2012 TSH Qn 1.460 {uIU/mL} Normal 0.450-4.500 Comprehen [facility] Internal Medicine Work Phone: Comment on above: PATIENT WAS FASTINGP ERFORMED BY: CB [facility] Gongmu6537 [address] RoadDublin [place] [id number] Vitamin D Hydroxy (95875)Ord ered By: Asphalt Paver Operator on 11-20-2012 25-Hydroxyvitamin D2+25-Hydroxyvitamin D3 [Mass/Vol] 19.6 ng/mL Abnormal 30.0-100.0 [facility] Work Phone: Comment on above: Vitamin D deficiency has been defined by the [place] ofF[facility] Hospitalcine and an Endocrine Society practice guideline as alevel of serum 25-OH vitamin D less than 20 ng/mL (1,2).The Endocrine Society went on to further define vitamin Dinsufficiency as a level between 21 and 29 ng/mL (2).1. IOM ([place] of Medicine). 2010. Dietary reference intakes for calcium and D. [place]: The National Academies Press.2. Aurelia MF, Freddy BENAVIDES, Emi AZAR, et al. Evaluation, treatment, and prevention of vitamin D deficiency: an Endocrine Society clinical practice guideline. JCEM. 2010; 96(7):1911-30. PATIENT WAS FASTINGP ERFORMED BY: CB [facility] Lsguaf3175 [address]ner RoadDublin [place] [id number] HgA1C , Office (79138)Ordere d By: Ava Tubbs on 10-17-2012 HbA1c (Bld) [Mass fraction] 7.2 % Abnormal 4.6 - 7.1 [facility] Work Phone: Comment on above: 7.2 CMPOrdered By: System Manage r on 07-20-2012 Albumin [Mass/Vol] 4.6 g/dL Normal 3.4-5.0 [facility] Internal Medicine Work Phone: Albumin/Globulin [Mass ratio] 1.2 {RATIO} Normal 0.9-2.4 [facility] Work Phone: ALP [Catalytic activity/Vol] 90 U/L Normal 50-136 [facility] Work Phone: ALT [Catalytic activity/Vol] 44 U/L Normal 12-78 [facility] Work Phone: Anion gap [Moles/Vol] 8 mmol/L Normal 5-15 [facility] pre[facility] Internal Medicine Work Phone: AST [Catalytic activity/Vol] 30 U/L Normal 15-37 [facility] Internal Medicine Work Phone: Bilirubin [Mass/Vol] 0.50 mg/dL Normal 0.00-1.00 [facility] rehensive Internal Medicine Work Phone: Calcium [Mass/Vol] 9.7 mg/dL Normal 8.5-10.1 [facility] Internal Medicine Work Phone: Chloride [Moles/Vol] 100 mmol/L Normal 98-107 [facility] rehensive Internal Medicine Work Phone: CO2 [Moles/Vol] 26.0 mmol/L Normal 21.0-32.0 [facility] Internal Medicine Work Phone: Creatinine [Mass/Vol] 0.9 mg/dL Normal 0.8-1.3 [facility] pre[facility] Internal Medicine Work Phone: GFR/1.73 sq M predicted among blacks MDRD (S/P/Bld) [Vol rate/Area] 124 mL/min/{1.73_m2} Normal Comprehensi ve Internal Medicine Work Phone: GFR/1.73 sq M.predicted MDRD (S/P/Bld) [Vol rate/Area] 102 mL/min/{1.73_m2} Normal Comprehensi ve Internal Medicine Work Phone: Globulin (S) [Mass/Vol] 3.7 g/dL Normal 2.7-4.2 [facility] Internal Medicine Work Phone: Glucose [Mass/Vol] 152 mg/dL Abnormal 70-110 [facility] Internal Medicine Work Phone: Comment on above: Fasting Glucose resu lt greater than or equal to 126 mg/dL suggests DIABETES MELLITUS per A.D.A. criteria. Potassium [Moles/Vol] 4.1 mmol/L Normal 3.5-5.1 Com prehensive Internal Medicine Work Phone: Protein [Mass/Vol] 8.3 g/dL Abnormal 6.4-8.2 [facility] Internal Medicine Work Phone: Sodium [Moles/Vol] 134 mmol/L Abnormal 136-145 [facility] Internal Medicine Work Phone: Urea nitrogen [Mass/Vol] 11 mg/dL Normal 7-18 [facility] Internal Medicine Work Phone: Urea nitrogen/Creatinine [Mass ratio] 12.2 {RATIO} Normal 10-20 [facility] Internal Medicine Work Phone: Blood Glucose , Office ([phone])Ordered By: Mayra Jorge on 07-18-2012 Glucose Glucometer (BldC) [Moles/Vol] HIgh Normal [facility] Internal Medicine Work Phone: Comment on above: Took 3 times, 2 diff erent glucometers, 531 at 2:48ly348 at [id number] at 345pm attempted x 3 unable to at 2:30 pm415 at 310pm after 10units R insulin-this was checked with patient's own monitoragain checked at 415pm, after 2 bags NS and the xtra 5 u humalog - 329BS - still c/o blurred vision. CBCMDOrdered By: Dom epps on 07-18-2012 Erythrocyte distribution width (RBC) [Ratio] 12.3 % Normal 11.6-14.6 [facility] Internal Medicine Work Phone: Comment on above: DRAWN FROM IV Hematocrit (Bld) [Volume fraction] 44.0 % Normal 40-54 [facility] Work Phone: Comment on above: DRAWN FROM IV Hemoglobin (Bld) [Mass/Vol] 15.6 g/dL Normal 13.0-16.5 [facility] Internal Medicine Work Phone: Comment on above: DRAWN FROM IV MCH (RBC) [Entitic mass] 31.3 pg Normal 27.0-32.0 [facility] Internal Medicine Work Phone: Comment on above: DRAWN FROM IV MCHC (RBC) [Mass/Vol] 35.5 g/dL Normal 32-36 [facility] Internal Medicine Work Phone: Comment on above: DRAWN FROM IV MCV (RBC) [Entitic vol] 88.2 fL Normal 80-94 [facility] Internal Medicine Work Phone: Comment on above: DRAWN FROM IV Platelet mean volume (Bld) [Entitic vol] 11.4 fL Normal 6.2-12.0 [facility] Internal Medicine Work Phone: Comment on above: DRAWN FROM IV Platelets (Bld) [#/Vol] 274 10*3/uL Normal 150-450 [facility] Internal Medicine Work Phone: Comment on above: DRAWN FROM IV RBC (Bld) [#/Vol] 4.99 {M/mm3} Normal 4.6-6.2 [facility] Internal Medicine Work Phone: Comment on above: DRAWN FROM IV WBC (Bld) [#/Vol] 10.6 {k/mm3} Normal 4.4-11.0 [facility] Internal Medicine Work Phone: Comment on above: DRAWN FROM IV CBCMD 7.4 3/uL Normal 2.0-7.7 [facility] Internal Medicine Work Phone: Comment on above: DRAWN FROM IV CBCMD 0.030 3/ul Abnormal 0.0-0.0 [facility] Internal Medicine Work Phone: Comment on above: DRAWN FROM IV CBCMD 69.7 % Normal 47-70 [facility] Work Phone: Comment on above: DRAWN FROM IV CBCMD 0.30 % Abnormal 0.0-0.0 [facility] Work Phone: Comment on above: DRAWN FROM IV CBCMD 1.8 % Normal 0-5 [facility] Work Phone: Comment on above: DRAWN FROM IV CBCMD 39.0 fL Normal 35.1-43.9 [facility] Work Phone: Comment on above: DRAWN FROM IV CBCMD 5.8 % Normal 0-10 [facility] Work Phone: Comment on above: DRAWN FROM IV CBCMD 22.1 % Normal 19-41 [facility] Work Phone: Comment on above: DRAWN FROM IV CBCMD 0.3 % Normal 0-1 [facility] Work Phone: Comment on above: DRAWN FROM IV CMPOrdered By: System Manage r on 07-18-2012 Albumin [Mass/Vol] 4.5 g/dL Normal 3.4-5.0 Compre [facility] Internal Medicine Work Phone: Comment on above: DRAWN FROM IVSPECIME N MODERATELY LIPEMIC Albumin/Globulin [Mass ratio] 1.5 {RATIO} Normal 0.9-2.4 [facility] Work Phone: Comment on above: DRAWN FROM IVSPECIME N MODERATELY LIPEMIC ALP [Catalytic activity/Vol] 102 U/L Normal 50-136 [facility] Work Phone: Comment on above: DRAWN FROM IVSPECIME N MODERATELY LIPEMIC ALT [Catalytic activity/Vol] 42 U/L Normal 12-78 [facility] Work Phone: Comment on above: DRAWN FROM IVSPECIME N MODERATELY LIPEMIC Anion gap [Moles/Vol] 12 mmol/L Normal 5-15 [facility] Medicine Work Phone: Comment on above: DRAWN FROM IVSPECIME N MODERATELY LIPEMIC AST [Catalytic activity/Vol] 21 U/L Normal 15-37 [facility] Work Phone: Comment on above: DRAWN FROM IVSPECIME N MODERATELY LIPEMIC Bilirubin [Mass/Vol] 0.40 mg/dL Normal 0.00-1.00 [facility] rehensive Internal Medicine Work Phone: Comment on above: DRAWN FROM IVSPECIME N MODERATELY LIPEMIC Calcium [Mass/Vol] 9.1 mg/dL Normal 8.5-10.1 [facility] Internal Medicine Work Phone: Comment on above: DRAWN FROM IVSPECIME N MODERATELY LIPEMIC Chloride [Moles/Vol] 92 mmol/L Abnormal 98-107 [facility]: Comment on above: DRAWN FROM IVSPECIME N MODERATELY LIPEMIC CO2 [Moles/Vol] 27.0 mmol/L Normal 21.0-32.0 [facility] Work Phone: Comment on above: DRAWN FROM IVSPECIME N MODERATELY LIPEMIC Creatinine [Mass/Vol] 1.1 mg/dL Normal 0.8-1.3 [facility] Internal Medicine Work Phone: Comment on above: DRAWN FROM IVSPECIME N MODERATELY LIPEMIC GFR/1.73 sq M predicted among blacks MDRD (S/P/Bld) [Vol rate/Area] 98 mL/min/{1.73_m2} Normal Comprehensiv e Internal Medicine Work Phone: Comment on above: DRAWN FROM IVSPECIME N MODERATELY LIPEMIC GFR/1.73 sq M.predicted MDRD (S/P/Bld) [Vol rate/Area] 81 mL/min/{1.73_m2} Normal Comprehensiv e Internal Medicine Work Phone: Comment on above: DRAWN FROM IVSPECIME N MODERATELY LIPEMIC Globulin (S) [Mass/Vol] 3.1 g/dL Normal 2.7-4.2 [facility] Internal Medicine Work Phone: Comment on above: DRAWN FROM IVSPECIME N MODERATELY LIPEMIC Glucose [Mass/Vol] 541 mg/dL Abnormal 70-110 [facility] Internal Medicine Work Phone: Comment on above: Glucose result great er than or equal to 200 mg/dLsuggests DIABETES MELLITUS per A.D.A. criteria. DRAWN FROM IVSPECIME N MODERATELY LIPEMIC Potassium [Moles/Vol] 5.2 mmol/L Abnormal 3.5-5.1 [facility] Work Phone: Comment on above: DRAWN FROM IVSPECIME N MODERATELY LIPEMIC Protein [Mass/Vol] 7.6 g/dL Normal 6.4-8.2 [facility] Internal Medicine Work Phone: Comment on above: DRAWN FROM IVSPECIME N MODERATELY LIPEMIC Sodium [Moles/Vol] 131 mmol/L Abnormal 136-145 [facility] Internal Medicine Work Phone: Comment on above: DRAWN FROM IVSPECIME N MODERATELY LIPEMIC Urea nitrogen [Mass/Vol] 14 mg/dL Normal 7-18 [facility] Work Phone: Comment on above: DRAWN FROM IVSPECIME N MODERATELY LIPEMIC Urea nitrogen/Creatinine [Mass ratio] 12.7 {RATIO} Normal 10-20 [facility] Work Phone: Comment on above: DRAWN FROM IVSPECIME N MODERATELY LIPEMIC HgA1C , Office ([phone])Ordere d By: Mayra Jorge on 07-18-2012 HbA1c (Bld) [Mass fraction] 8.7 % Abnormal 4.6 - 7.1 [facility] Work Phone: OSOrdered By: Asphalt Paver Operator on 07-18-2012 OS 309 {mOsm/KG} Abnormal 275-295 Comprehensi ve Internal Medicine Work Phone: Comment on above: DRAWN FROM IV Urinalysis, Office ([phone])Or dered By: Ava Tubbs on 07-18-2012 Bilirubin Ql (U) Negative Normal Comprehe nsive Internal Medicine Work Phone: Bilirubin Ql (U) Negative Normal Comprehe nsive Internal Medicine; [facility] Work Phone: Glucose Test strip (U) [Mass/Vol] Large Normal [facility] Work Phone: Hemoglobin Ql (U) Negative Normal Compreh ensive Internal Medicine Work Phone: Hemoglobin Ql (U) Negative Normal Compreh ensive Internal Medicine; [facility] Work Phone: Ketones Ql (U) Negative Normal [facility]prehens [facility] [facility] Work Phone: Ketones Ql (U) Negative Normal [facility]; [facility] Work Phone: Leukocyte esterase Test strip Ql (U) Negative Normal [facility] Work Phone: Leukocyte esterase Test strip Ql (U) Negative Normal [facility]; [facility] Work Phone: Nitrite Ql (U) Negative Normal [facility] [place] [facility] Work Phone: Nitrite Ql (U) Negative Normal [facility] [facility]; [facility] Work Phone: pH (U) 6.0 [pH] Normal [facility] Work Phone: Protein Ql (U) Negative Normal [facility] [facility] Work Phone: Protein Ql (U) Negative Normal [facility]prehens [facility]; [facility] Work Phone: Specific gravity (U) [Rel density] 1.005 1 Normal [facility] Work Phone: Urobilinogen (24H U) [Mass/Time] 2 mg/dL Normal [facility] Work Phone: LIPID PANEL ([id number])Ordered B y: Asphalt Paver Operator on 06-15-2012 Cholesterol [Mass/Vol] 188 mg/dL Normal 100-199 Co mprehensive Internal Medicine Work Phone: Comment on above: PATIENT WAS FASTINGP ERFORMED BY: [facility] [id number] Information: [id number] Cholesterol in HDL [Mass/Vol] 36 mg/dL Abnormal [facility] Work Phone: Comment on above: According to ATP-III Guidelines, HDL-C >59 mg/dL is considered anegative risk factor for CHD. PATIENT WAS FASTINGP ERFORMED BY: [facility]70 [facility]staUNC [facility]ardee [id number] Information: [id number] Cholesterol in VLDL [Mass/Vol] VLDLCH Normal 5-40 [facility] Work Phone: Comment on above: The calculation for the VLDL cholesterol is not valid whentriglyceride level is >400 mg/dL.Triglyceride result indicated is too high for an accurate LDLcholesterol estimation. PATIENT WAS FASTINGP ERFORMED BY: [facility]70 [facility]L [facility] [id number] Information: [id number] Triglyceride [Mass/Vol] 452 mg/dL Abnormal 0-149 [facility] Work Phone: Comment on above: PATIENT WAS FASTINGP ERFORMED BY: [facility]70 mobiManageUNC Health Chatham [id number] Information: [id number] Hep A Ab, TotalOrdered By: S ystem Dance Coach on 05-16-2012 HAV Ab IA Ql (S) Negative Normal Comprehe nsive Internal Medicine Work Phone: Comment on above: PERFORMED BY: [employer]6370 mobiManageUNC Health Chatham [id number] Hep B Surface AbOrdered By: Asphalt Paver Operator on 05-16-2012 HBV surface Ab PINEDA Qn (S) 1.58 {Index_Value} Abnormal 0.00-0.99 [facility] Work Phone: Comment on above: Status of Immunity A nti-HBs Level Inconsistent with Immunity 0.00 - 0.99 Consistent with Immunity >0.99 . An Index Value of 1.00 is equivalent to 10 mIU/mL. However the magnitude of the Index Value is not indicative of the total amount of antibody present. PERFORMED BY: [employer]6370 mobiManageUNC Health Chatham [id number] Measles/Mumps/Rubella Immuni tyOrdered By: Asphalt Paver Operator on 05-16-2012 Measles/Mumps/Rubella Immunity 10 {IU/mL} Normal [facility] Work Phone: Comment on above: Non-immune <5 Equivo hilda 5 - 9 Immune >9 PERFORMED BY: [facility]lin6370 PixstaUNC Health Pardee [id number] Measles/Mumps/Rubella Immunity 1.52 {index} Abnormal 0.00-0.90 [facility] Work Phone: Comment on above: Negative <0.91 Equiv ocal 0.91 - 1.09 Positive >1.09 . Presence of antibodies to Rubeola is presumptive evidence of immunity except when active infection is suspected. PERFORMED BY: [employer]6370 mobiManageUNC Health Chatham [id number] Measles/Mumps/Rubella Immunity 1.92 {index} Abnormal 0.00-0.90 [facility] Work Phone: Comment on above: Negative <0.91 Equiv ocal 0.91 - 1.09 Positive >1.09 Presence of antibodies to Mumps is presumptive evidence of immunity except when active infection is suspected. PERFORMED BY: [employer]70 PixstaUNC Health Pardee [id number] Varicella-Zoster V Ab, IgGOr dered By: Asphalt Paver Operator on 05-16-2012 Varicella-Zoster V Ab, IgG 1.86 {index} Normal [facility] Work Phone: Comment on above: Nonimmune <0.91 Equi vocal 0.91 - 1.09 Immune >1.09 PERFORMED BY: [facility]6[address] [facility] [id number] HgA1C , Office ([id number])Ordere d By: Ava Tubbs on 09-13-2011 HbA1c (Bld) [Mass fraction] 5.8 % Normal 4.6 - 7.1 [facility] Work Phone: PSA (PROSTATE SPECIFIC ANTIG EN) ([id number])Ordered By: Asphalt Paver Operator on 09-13-2011 Prostate specific Ag [Mass/Vol] 1.1 ng/mL Normal 0.0-4.0 [facility] Work Phone: Comment on above: Elliot ECLIA methodol ogy. .According to the [place] [employer], Serum PSA shoulddecrease and remain at undetectable levels after radicalprostatectomy. The AUA defines biochemical recurrence as an initialPSA value 0.2 ng/mL or greater followed by a subsequent confirmatoryPSA value 0.2 ng/mL or greater.Values obtained with different assay methods or kits cannot be usedinterchangeably. Results cannot be interpreted as absolute evidenceof the presence or absence of malignant disease. PATIENT NOT FASTINGP ERFORMED BY: [facility] Lnknek9778 [address] RoadDublin [place] [id number] Information: [id number] Comp. Metabolic Panel (14)Or dered By: Asphalt Paver Operator on 09-02-2011 Albumin [Mass/Vol] 4.8 g/dL Normal 3.5-5.5 [facility] Internal Medicine Work Phone: Comment on above: PATIENT WAS FASTINGP ERFORMED BY: [facility] Juchxn0035 [address] RoadDublin [place] [id number] Albumin/Globulin [Mass ratio] 1.5 {ratio} Normal 1.1-2.5 [facility] Work Phone: Comment on above: PATIENT WAS FASTINGP ERFORMED BY: [facility] Xltlop4596 [address] RoadDublin [place] [id number] ALP [Catalytic activity/Vol] 64 [iU]/L Normal 25-150 [facility] Work Phone: Comment on above: PATIENT WAS FASTINGP ERFORMED BY: [facility] Gqwadc10[address] RoadDublin [place] [id number] ALT [Catalytic activity/Vol] 44 [iU]/L Normal 0-55 [facility] Work Phone: Comment on above: PATIENT WAS FASTINGP ERFORMED BY: [facility] Mkelah7315 [address] RoadDublin [place] [id number] AST [Catalytic activity/Vol] 34 [iU]/L Normal 0-40 [facility] Work Phone: Comment on above: PATIENT WAS FASTINGP ERFORMED BY: [facility] Guxaer2884 [address] RoadDublin [place] [id number] Bilirubin [Mass/Vol] 0.5 mg/dL Normal 0.0-1.2 Comp [facility] Work Phone: Comment on above: PATIENT WAS FASTINGP ERFORMED BY: CB [facility] Iqyhud3387 [address] RoadDublin [place] [id number] Calcium [Mass/Vol] 9.7 mg/dL Normal 8.7-10.2 [facility] Internal Medicine Work Phone: Comment on above: PATIENT WAS FASTINGP ERFORMED BY: CB [facility] Ajfccr8186 [address] RoadDublin [place] [id number] Chloride [Moles/Vol] 101 mmol/L Normal 97-108 Comp [facility] Work Phone: Comment on above: PATIENT WAS FASTINGP ERFORMED BY: CB [facility] Jodeer7723 [address] RoadDublin [place] [id number] CO2 [Moles/Vol] 24 mmol/L Normal 20-32 Comprehen [facility] Internal Medicine Work Phone: Comment on above: PATIENT WAS FASTINGP ERFORMED BY: CB [facility] Lgmtun4959 [address] RoadDublin [place] [id number] Creatinine [Mass/Vol] 0.99 mg/dL Normal 0.76-1.27 [facility] Internal Medicine Work Phone: Comment on above: PATIENT WAS FASTINGP ERFORMED BY: CB [facility] Yeoxrx7535 [address] RoadDuin [place] [id number] GFR/1.73 sq M predicted among blacks MDRD (S/P/Bld) [Vol rate/Area] 114 mL/min/{1.73_m2} Normal [facility] Internal Medicine Work Phone: Comment on above: Note: A persistent e GFR <60 mL/min/1.73 m2 (3 months or more) mayindicate chronic kidney disease. An eGFR >59 mL/min/1.73 m2 with anelevated urine protein also may indicate chronic kidney disease.Calculated using CKD-EPI formula. PATIENT WAS FASTINGP ERFORMED BY: CB [facility] Ptytyf8449 [address] RoadDublin [place] [id number] GFR/1.73 sq M predicted among non-blacks CKD-EPI (S/P/Bld) [Vol rate/Area] 99 mL/min/1.73 Normal [facility] Internal Medicine Work Phone: Comment on above: PATIENT WAS FASTINGP ERFORMED BY: FERN [facility] Htnimb6361 [address] RoadDublin [place] [id number] Globulin (S) [Mass/Vol] 3.1 g/dL Normal 1.5-4.5 [facility] Internal Medicine Work Phone: Comment on above: PATIENT WAS FASTINGP ERFORMED BY: CB [facility] Vbytnk8813 [address] Roadblin [place] [id number] Glucose [Mass/Vol] 74 mg/dL Normal 65-99 [facility] Internal Medicine Work Phone: Comment on above: PATIENT WAS FASTINGP ERFORMED BY: FERN [facility] Imdvwy4837 [address] RoadDuin [place] [id number] Potassium [Moles/Vol] 4.4 mmol/L Normal 3.5-5.2 [facility] Internal Medicine Work Phone: Comment on above: PATIENT WAS FASTINGP ERFORMED BY: FERN [facility] Yweptu6684 [address] RoadCommunity Healthin [place] [id number] Protein [Mass/Vol] 7.9 g/dL Normal 6.0-8.5 [facility] Internal Medicine Work Phone: Comment on above: PATIENT WAS FASTINGP ERFORMED BY: [facility] Cgbegx0135 [address] RoadDublin [place] [id number] Sodium [Moles/Vol] 139 mmol/L Normal 134-144 [facility] Internal Medicine Work Phone: Comment on above: PATIENT WAS FASTINGP ERFORMED BY: [facility] Eunccf0930 [address] RoadDublin [place] [id number] Urea nitrogen [Mass/Vol] 10 mg/dL Normal 6-20 [facility] Internal Medicine Work Phone: Comment on above: PATIENT WAS FASTINGP ERFORMED BY: FERN [facility] Dmytzv3189 [address] RoadDublin [place] [id number] Urea nitrogen/Creatinine [Mass ratio] 10 mg/mg Normal 8-19 [facility] Internal Medicine Work Phone: Comment on above: PATIENT WAS FASTINGP ERFORMED BY: CB [facility] Iprjzs6879 [address] RoadDublin [place] [id number] Lipid Panel With LDL/HDL Rat ioOrdered By: Asphalt Paver Operator on 09-02-2011 Cholesterol [Mass/Vol] 251 mg/dL Abnormal 100-199 [facility] Internal Medicine Work Phone: Comment on above: PATIENT WAS FASTINGP ERFORMED BY: CB [facility] Vfjsdw1618 [address] RoadDublin [place] [id number] Cholesterol in HDL [Mass/Vol] 40 mg/dL Normal [facility] Work Phone: Comment on above: According to ATP-III Guidelines, HDL-C >59 mg/dL is considered anegative risk factor for CHD. PATIENT WAS FASTINGP ERFORMED BY: FERN [facility] Twdzuo0346 [address] RoadDublin [place] [id number] Cholesterol in LDL [Mass/Vol] 166 mg/dL Abnormal 0-99 [facility] Work Phone: Comment on above: PATIENT WAS FASTINGP ERFORMED BY: CB [facility] Jezbry3486 [address] RoadDublin [place] [id number] Cholesterol in LDL/Cholesterol in HDL [Mass ratio] 4.2 {ratio_units} Abnormal 0.0-3.6 [facility] Work Phone: Comment on above: PATIENT WAS FASTINGP ERFORMED BY: CB [facility] Oraxen57[address] RoadDublin [place] [id number] Cholesterol in VLDL [Mass/Vol] 45 mg/dL Abnormal 5-40 [facility] Work Phone: Comment on above: PATIENT WAS FASTINGP ERFORMED BY: CB [facility] Qdkxiu6010 [address] RoadDublin [place] [id number] Triglyceride [Mass/Vol] 225 mg/dL Abnormal 0-149 [facility] Work Phone: Comment on above: PATIENT WAS FASTINGP ERFORMED BY: CB [facility] Jsqbvf7526 [address] RoadDublin [place] [id number] Vitamin D, 25-HydroxyOrdered By: Asphalt Paver Operator on 09-02-2011 25-Hydroxyvitamin D2+25-Hydroxyvitamin D3 [Mass/Vol] 11.6 ng/mL Abnormal 30.0-100.0 [facility] Work Phone: Comment on above: Vitamin D deficiency has been defined by the [place] of[employer] and an Endocrine Society practice guideline as alevel of serum 25-OH vitamin D less than 20 ng/mL (1,2).The Endocrine Society went on to further define vitamin Dinsufficiency as a level between 21 and 29 ng/mL (2).1. IOM ([place] of [employer]). 2010. Dietary reference intakes for calcium and D. [place]: The National Academies Press.2. Aurelia MF, Freddy BENAVIDES, Emi AZAR, et al. Evaluation, treatment, and prevention of vitamin D deficiency: an Endocrine Society clinical practice guideline. JCEM. 2010; 96(7):1911-30. PATIENT WAS FASTINGP ERFORMED BY: [employer]United [employer] Vzldfu0277 mobiManagein [place] [id number] LIPID PANEL ([id number])Ordered B y: Asphalt Paver Operator on 02-01-2011 Cholesterol [Mass/Vol] 238 mg/dL Abnormal 100-199 [facility] Internal Medicine Work Phone: Comment on above: PATIENT WAS FASTINGP ERFORMED BY: [email or web address] [facility] Rfljkm[address] Global Locateblin [place] [id number] Cholesterol in HDL [Mass/Vol] 43 mg/dL Normal [facility] Work Phone: Comment on above: According to ATP-III Guidelines, HDL-C >59 mg/dL is considered anegative risk factor for CHD. PATIENT WAS FASTINGP ERFORMED BY: CB [facility] Wofmia[address] Locateblin [place] [id number] Cholesterol in LDL [Mass/Vol] 158 mg/dL Abnormal 0-99 [facility] Work Phone: Comment on above: PATIENT WAS FASTINGP ERFORMED BY: [employer] Baupia[address] ConnequityDuin [place] [id number] Cholesterol in LDL/Cholesterol in HDL [Mass ratio] 3.7 {ratio_units} Abnormal 0.0-3.6 [facility] Work Phone: Comment on above: PATIENT WAS FASTINGP ERFORMED BY: FERN [facility] Ctvidg2817 [address] RoadDublin [place] [id number] Cholesterol in VLDL [Mass/Vol] 37 mg/dL Normal 5-40 [facility] Work Phone: Comment on above: PATIENT WAS FASTINGP ERFORMED BY: FERN [facility] Arrikq3633 [address] RoadDublin [place] [id number] Triglyceride [Mass/Vol] 185 mg/dL Abnormal 0-149 [facility] Work Phone: Comment on above: PATIENT WAS FASTINGP ERFORMED BY: FERN [facility] Jjqjar2791 [address] RoadDublin [place] [id number] METABOLIC PANEL, COMPREHENSI VE ([id number])Ordered By: Asphalt Paver Operator on 02-01-2011 Albumin [Mass/Vol] 4.7 g/dL Normal 3.5-5.5 [facility] Internal Medicine Work Phone: Comment on above: PATIENT WAS FASTINGP ERFORMED BY: FERN [facility] Njgokq2788 [address] RoadDublin [place] [id number] Information: [id number], NURSE DRAW Albumin/Globulin [Mass ratio] 1.5 {ratio} Normal 1.1-2.5 [facility] Work Phone: Comment on above: PATIENT WAS FASTINGP ERFORMED BY: FERN [facility] Cykrxp3271 [address] RoadDublin [place] [id number] Information: [id number], NURSE DRAW ALP [Catalytic activity/Vol] 69 [iU]/L Normal 25-150 [facility] Work Phone: Comment on above: PATIENT WAS FASTINGP ERFORMED BY: CB [facility] Rcyaqa7247 [address] RoadDublin [place] [id number] Information: [id number], NURSE DRAW ALP [Catalytic activity/Vol] 69 U/L Normal 25-150 [facility]; [facility] Work Phone: Comment on above: PATIENT WAS FASTINGP ERFORMED BY: CB [facility] Efcnrj0243 [address] RoadDublin [place] [id number] Information: [id number], NURSE DRAW ALT [Catalytic activity/Vol] 32 [iU]/L Normal 0-55 [facility] Work Phone: Comment on above: PATIENT WAS FASTINGP ERFORMED BY: Chris[place] [id number] [facility] [id number] Information: [id number], NURSE DRAW ALT [Catalytic activity/Vol] 32 U/L Normal 0-55 [facility]; [facility] Work Phone: Comment on above: PATIENT WAS FASTINGP ERFORMED BY: [address] [id number] Information: [id number], NURSE DRAW AST [Catalytic activity/Vol] 30 [iU]/L Normal 0-40 [facility] Work Phone: Comment on above: PATIENT WAS FASTINGP ERFORMED BY: [address] [id number] Information: [id number], NURSE DRAW AST [Catalytic activity/Vol] 30 U/L Normal 0-40 [facility]; [facility] Work Phone: Comment on above: PATIENT WAS FASTINGP ERFORMED BY: [place] [id number] [facility] [id number] Information: [id number], NURSE DRAW Bilirubin [Mass/Vol] 0.5 mg/dL Normal 0.0-1.2 [facility] Internal Medicine Work Phone: Comment on above: PATIENT WAS FASTINGP ERFORMED BY: [address] [id number] Information: [id number], NURSE DRAW Calcium [Mass/Vol] 10.0 mg/dL Normal 8.7-10.2 [facility] Internal Medicine Work Phone: Comment on above: PATIENT WAS FASTINGP ERFORMED BY: [place] [id number] [facility] [id number] Information: [id number], NURSE DRAW Chloride [Moles/Vol] 102 mmol/L Normal 97-108 [facility] rehensive Internal Medicine Work Phone: Comment on above: PATIENT WAS FASTINGP ERFORMED BY: [facility] HospitalNzgzit1170 [facility] [id number] Information: [id number], NURSE DRAW CO2 [Moles/Vol] 23 mmol/L Normal 20-32 Comprehen s[facility] Internal Medicine Work Phone: Comment on above: PATIENT WAS FASTINGP ERFORMED BY: [facility]6370 [facility] [id number] Information: [id number], NURSE DRAW Creatinine [Mass/Vol] 1.15 mg/dL Normal 0.76-1.27 [facility] Internal Medicine Work Phone: Comment on above: PATIENT WAS FASTINGP ERFORMED BY: [address] [id number] Information: [id number], NURSE DRAW GFR/1.73 sq M predicted among blacks MDRD (S/P/Bld) [Vol rate/Area] 96 mL/min/{1.73_m2} Normal Comprehensiv e Internal Medicine Work Phone: Comment on above: Note: A persistent e GFR <60 mL/min/1.73 m2 (3 months or more) mayindicate chronic kidney disease. An eGFR >59 mL/min/1.73 m2 with anelevated urine protein also may indicate chronic kidney disease.Calculated using CKD-EPI formula. PATIENT WAS FASTINGP ERFORMED BY: [facility]6370 [facility] [id number] Information: [id number], NURSE DRAW GFR/1.73 sq M predicted among non-blacks CKD-EPI (S/P/Bld) [Vol rate/Area] 83 mL/min/1.73 Normal [facility] Work Phone: Comment on above: PATIENT WAS FASTINGP ERFORMED BY: [facility] HospitalIsgtlq7444 [facility] [id number] Information: [id number], NURSE DRAW Globulin (S) [Mass/Vol] 3.1 g/dL Normal 1.5-4.5 [facility] Internal Medicine Work Phone: Comment on above: PATIENT WAS FASTINGP ERFORMED BY: FERN Ron Tndmie1364 [facility] [id number] Information: [id number], NURSE DRAW Glucose [Mass/Vol] 95 mg/dL Normal 65-99 [facility] Internal Medicine Work Phone: Comment on above: PATIENT WAS FASTINGP ERFORMED BY: Chris[address] [id number] Information: [id number], NURSE DRAW Potassium [Moles/Vol] 4.5 mmol/L Normal 3.5-5.2 [facility] Internal Medicine Work Phone: Comment on above: PATIENT WAS FASTINGP ERFORMED BY: [address] [id number] Information: [id number], NURSE DRAW Protein [Mass/Vol] 7.8 g/dL Normal 6.0-8.5 [facility] Internal Medicine Work Phone: Comment on above: PATIENT WAS FASTINGP ERFORMED BY: FERN Chris[address] [id number] Information: [id number], NURSE DRAW Sodium [Moles/Vol] 139 mmol/L Normal 135-145 [facility] Internal Medicine Work Phone: Comment on above: PATIENT WAS FASTINGP ERFORMED BY: [place] [id number] [facility] [id number] Information: [id number], NURSE DRAW Urea nitrogen [Mass/Vol] 13 mg/dL Normal 6-20 [facility] Internal Medicine Work Phone: Comment on above: PATIENT WAS FASTINGP ERFORMED BY: Chris[address] [id number] Information: [id number], NURSE DRAW Urea nitrogen/Creatinine [Mass ratio] 11 mg/mg Normal 8-19 [facility] Internal Medicine Work Phone: Comment on above: PATIENT WAS FASTINGP ERFORMED BY: [facility]6370 [facility] [id number] Information: [id number], NURSE DRAW Vital Signs Date Time Vital Sign Value Performing Clinician Facility 02-28-2025 07:59-0400 Body height 162.[address] Tawanna Pickard DO Work Phone: [facility] 02-28-2025 07:59-0400 Body mass index (BMI) [Ratio] 34.8 kg/m2 Dr. Tawanan Pickard DO Work Phone: [facility] 02-28-2025 07:59-0400 Body weight 92.[address] Tawanna Pickard DO Work Phone: [facility] 02-28-2025 07:59-0400 Diastolic blood pressure 74 mm[Hg] Dr. Tawanna Pickard DO Work Phone: [facility] 02-28-2025 07:59-0400 Heart rate 58 /min Dr. Tawanna Pickard DO Work Phone: [facility] 02-28-2025 07:59-0400 SaO2% (BldA) [Mass fraction] 97 % Dr. Tawanna Pickard DO Work Phone: [facility] 02-28-2025 07:59-0400 Systolic blood pressure 136 mm[Hg] Dr. Tawanna Pickard DO Work Phone: [facility] 10-27-2023 08:01-0400 Body height 162.[address] Tawanna Pickard Work Phone: [facility] 10-27-2023 08:01-0400 Body mass index (BMI) [Ratio] 38 kg/m2 Dr. Tawanna Pickard Work Phone: [facility] 10-27-2023 08:01-0400 Body temperature 98.6 [degF] Dr. Tawanna Pickard Work Phone: [facility] 10-27-2023 08:01-0400 Body weight 100.[address] Tawanna Fast Work Phone: [facility] 10-27-2023 08:01-0400 Diastolic blood pressure 70 mm[Hg] Dr. Stacy Fast Work Phone: [facility] 10-27-2023 08:01-0400 Heart rate 60 /min Dr. Stacy Fast Work Phone: [facility] 10-27-2023 08:01-0400 SaO2% (BldA) [Mass fraction] 95 % Dr. Stacy Fast Work Phone: [facility] 10-27-2023 08:01-0400 Systolic blood pressure 144 mm[Hg] Dr. Stacy Fast Work Phone: [facility] 10-28-2022 07:56-0400 Body weight 94.35 kg Tawanna A Fast DO Work Phone: [facility]; [facility] Work Phone: 07-13-2022 08:04-0500 Body height 167.64 cm Tawanna A Fast DO Work Phone: [facility]; [facility] Work Phone: 07-13-2022 08:04-0500 Body mass index (BMI) [Ratio] 33.09 kg/m2 Tawanna A Fast DO Work Phone: [facility]; [facility] Work Phone: 07-13-2022 08:04-0500 Body surface area Derived from formula 2.02 m2 Tawanna A Fast DO Work Phone: [facility]; [facility] Work Phone: 07-13-2022 08:04-0500 Body temperature 97.9 [degF] Tawanna A Fast DO Work Phone: [facility]; [facility] Work Phone: Comment on above: Method: Thermal Scan 07-13-2022 08:04-0500 Body weight 92.99 kg Tawanna A Fast DO Work Phone: [facility]; [facility] Work Phone: 07-13-2022 08:04-0500 Diastolic blood pressure 70 mm[Hg] Tawanna A Fast DO Work Phone: [facility]; [facility] Work Phone: Comment on above: Patient Position: Sitting; Cuff Location : Left Arm; Cuff Size: Standard 07-13-2022 08:04-0500 Heart rate 73 /min Tawanna A Fast DO Work Phone: [facility]; [facility] Work Phone: Comment on above: Pattern: Regular 07-13-2022 08:04-0500 Respiratory rate 16 /min Tawanna A Fast DO Work Phone: [facility]; [facility] Work Phone: Comment on above: Pattern: Unlabored 07-13-2022 08:04-0500 Systolic blood pressure 118 mm[Hg] Tawanna A Fast DO Work Phone: [facility]; [facility] Work Phone: Comment on above: Patient Position: Sitting; Cuff Location : Left Arm; Cuff Size: Standard 01-14-2022 07:55-0400 Body height 167.64 cm [facility]; [facility] Work Phone: 01-14-2022 07:55-0400 Body mass index (BMI) [Ratio] 33.89 kg/m2 Eun [facility]; [facility] Work Phone: 01-14-2022 07:55-0400 Body surface area Derived from formula 2.04 m2 [facility]; [facility] Work Phone: 01-14-2022 07:55-0400 Body temperature 97 [degF] [facility]; [facility] Work Phone: Comment on above: Method: Thermal Scan 01-14-2022 07:55-0400 Body weight 95.26 [facility]; [facility] Work Phone: 01-14-2022 07:55-0400 Diastolic blood pressure 82 mm[Hg] Eun Arrington [facility]; [facility] Work Phone: Comment on above: Patient Position: Sitting; Cuff Location : Left Arm; Cuff Size: Standard 01-14-2022 07:55-0400 Heart rate 70 /min Eun Arrington [facility]; [facility] Work Phone: Comment on above: Pattern: Regular 01-14-2022 07:55-0400 Respiratory rate 16 /min Eun Arrington [facility]; [facility] Work Phone: Comment on above: Pattern: Unlabored 01-14-2022 07:55-0400 Systolic blood pressure 135 mm[Hg] Eun Arrington [facility]; [facility] Work Phone: Comment on above: Patient Position: Sitting; Cuff Location : Left Arm; Cuff Size: Standard 09-10-2021 11:18-0500 Body height 167.64 cm Eun Arrington [facility]; [facility] Work Phone: 09-10-2021 11:18-0500 Body mass index (BMI) [Ratio] 32.44 kg/m2 Eun Arrington [facility]; [facility] Work Phone: 09-10-2021 11:18-0500 Body surface area Derived from formula 2 m2 Eun Arrington [facility]; [facility] Work Phone: 09-10-2021 11:18-0500 Body temperature 96.9 [degF] Eun Arrington [facility]; [facility] Work Phone: Comment on above: Method: Thermal Scan 09-10-2021 11:18-0500 Body weight 91.17 kg Eun Arrington [facility]; [facility] Work Phone: 09-10-2021 11:18-0500 Diastolic blood pressure 68 mm[Hg] Eun Arrington [facility]; [facility] Work Phone: Comment on above: Patient Position: Sitting; Cuff Location : Left Arm; Cuff Size: Standard 09-10-2021 11:18-0500 Heart rate 74 /min Eun Arrington [facility]; [facility] Work Phone: Comment on above: Pattern: Regular 09-10-2021 11:18-0500 Respiratory rate 16 /min Eun Arrington [facility] Internal Medicine; [facility] Work Phone: Comment on above: Pattern: Unlabored 09-10-2021 11:18-0500 Systolic blood pressure 122 mm[Hg] Eun Arrington [facility]; [facility] Work Phone: Comment on above: Patient Position: Sitting; Cuff Location : Left Arm; Cuff Size: Standard 05-17-2021 08:25-0500 Body height 167.64 cm Eun Arrington [facility]; [facility] Work Phone: 05-17-2021 08:25-0500 Body mass index (BMI) [Ratio] 32.44 kg/m2 Eun Arrington [facility]; [facility] Work Phone: 05-17-2021 08:25-0500 Body surface area Derived from formula 2 m2 Eun Arrington [facility]; [facility] Work Phone: 05-17-2021 08:25-0500 Body temperature 97.1 [degF] Eun Arrington [facility]; [facility] Work Phone: Comment on above: Method: Thermal Scan 05-17-2021 08:25-0500 Body weight 91.17 kg Eun Arrington [facility]; [facility] Work Phone: 05-17-2021 08:25-0500 Diastolic blood pressure 70 mm[Hg] Eun Arrington [facility]; [facility] Work Phone: Comment on above: Patient Position: Sitting; Cuff Location : Left Arm; Cuff Size: Standard 05-17-2021 08:25-0500 Heart rate 88 /min Eun Arrington [facility]; [facility] Work Phone: Comment on above: Pattern: Regular 05-17-2021 08:25-0500 Respiratory rate 16 /min Eun Arrington [facility]; [facility] Work Phone: Comment on above: Pattern: Unlabored 05-17-2021 08:25-0500 Systolic blood pressure 126 mm[Hg] Eun Arrington [facility]; [facility] Work Phone: Comment on above: Patient Position: Sitting; Cuff Location : Left Arm; Cuff Size: Standard 11-18-2020 09:54-0400 Body height 167.64 cm Eun Arrington [facility]; [facility] Work Phone: 11-18-2020 09:54-0400 Body mass index (BMI) [Ratio] 32.44 kg/m2 Eun Arrington [facility]; [facility] Work Phone: 11-18-2020 09:54-0400 Body surface area Derived from formula 2 m2 Eun Arrington [facility]; [facility] Work Phone: 11-18-2020 09:54-0400 Body temperature 97.1 [degF] Eun Arrington [facility]; [facility] Work Phone: Comment on above: Method: Thermal Scan 11-18-2020 09:54-0400 Body weight 91.17 kg Eun Arrington [facility]; [facility] Work Phone: 11-18-2020 09:54-0400 Diastolic blood pressure 70 mm[Hg] Eun Arrington [facility]; [facility] Work Phone: Comment on above: Patient Position: Sitting; Cuff Location : Left Arm; Cuff Size: Standard 11-18-2020 09:54-0400 Heart rate 70 /min Eun Arrington [facility]; [facility] Work Phone: Comment on above: Pattern: Regular 11-18-2020 09:54-0400 Respiratory rate 16 /min Eun Arrington [facility]; [facility] Work Phone: Comment on above: Pattern: Unlabored 11-18-2020 09:54-0400 Systolic blood pressure 120 mm[Hg] Eun Arrington [facility]; [facility] Work Phone: Comment on above: Patient Position: Sitting; Cuff Location : Left Arm; Cuff Size: Standard 07-15-2020 09:42-0500 BMI (Body Mass Index) 32.44 kg/m2 Eun Arrington [facility]; [facility] Work Phone: 07-15-2020 09:42-0500 Body Temperature 96.9 [degF] Eun Arrington [facility]; [facility] Work Phone: Comment on above: Method: Thermal Scan 07-15-2020 09:42-0500 Body weight 91.17 kg Eun Arrington [facility]; [facility] Work Phone: 07-15-2020 09:42-0500 BP Diastolic 70 mm[Hg] Eun Arrington [facility]; [facility] Work Phone: Comment on above: Patient Position: Sitting; Cuff Location : Left Arm; Cuff Size: Standard 07-15-2020 09:42-0500 BP Systolic 126 mm[Hg] Eun Arrington [facility]; [facility] Work Phone: Comment on above: Patient Position: Sitting; Cuff Location : Left Arm; Cuff Size: Standard 07-15-2020 09:42-0500 BSA (Body Surface Area) 2 m2 Eun Arrington [facility]; [facility] Work Phone: 07-15-2020 09:42-0500 Height 167.64 cm Eun Arrington [facility]; [facility] Work Phone: 07-15-2020 09:42-0500 Pulse (Heart Rate) 75 /min Eun Arrington [facility]; [facility] Work Phone: Comment on above: Pattern: Regular 07-15-2020 09:42-0500 Respiratory Rate 16 /min Eun Arrington [facility]; [facility] Work Phone: Comment on above: Pattern: Unlabored 04-07-2020 08:56-0400 BMI (Body Mass Index) 33.09 kg/m2 Eun Arrington [facility] Work Phone: 04-07-2020 08:56-0400 Body Temperature 97.3 [degF] Eun Arrington [facility] Internal Medicine Work Phone: Comment on above: Method: Thermal Scan 04-07-2020 08:56-0400 Body weight 92.99 kg Eun Arrington [facility] Work Phone: 04-07-2020 08:56-0400 BP Diastolic 70 mm[Hg] Eun Arrington [facility] Work Phone: Comment on above: Patient Position: Sitting; Cuff Location : Left Arm; Cuff Size: Standard 04-07-2020 08:56-0400 BP Systolic 124 mm[Hg] Eun Arrington [facility] Work Phone: Comment on above: Patient Position: Sitting; Cuff Location : Left Arm; Cuff Size: Standard 04-07-2020 08:56-0400 BSA (Body Surface Area) 2.02 m2 Eun Arrington [facility] Work Phone: 04-07-2020 08:56-0400 Height 167.64 cm Eun Arrington [facility] Work Phone: 04-07-2020 08:56-0400 Pulse (Heart Rate) 71 /min Eun Arrington [facility] Medicine Work Phone: Comment on above: Pattern: Regular 04-07-2020 08:56-0400 Respiratory Rate 16 /min Eun Arrington [facility] Work Phone: Comment on above: Pattern: Unlabored 12-09-2019 14:01-0400 BMI (Body Mass Index) 33.57 kg/m2 Esthela Briceño RN [facility] Work Phone: 12-09-2019 14:01-0400 Body Temperature 97.7 [degF] Esthela Briceño RN [facility] Work Phone: Comment on above: Method: Temporal 12-09-2019 14:010400 Body weight 94.35 kg Esthela Briceño RN [facility] Work Phone: 12-09-2019 14:01-0400 BP Diastolic 78 mm[Hg] Esthela Briceño RN [facility] Work Phone: Comment on above: Patient Position: Sitting; Cuff Location : Left Arm; Cuff Size: Standard 12-09-2019 14:01-0400 BP Systolic 130 mm[Hg] Etshela Briceño RN [facility] Work Phone: Comment on above: Patient Position: Sitting; Cuff Location : Left Arm; Cuff Size: Standard 12-09-2019 14:01-0400 BSA (Body Surface Area) 2.03 m2 Esthela Briceño RN [facility] Work Phone: 12-09-2019 14:01-0400 Height 167.64 cm Esthela Briceño RN [facility] Work Phone: 12-09-2019 14:01-0400 Pulse (Heart Rate) 74 /min Esthela Briceño RN [facility] Work Phone: Comment on above: Pattern: Regular 12-09-2019 14:01-0400 Pulse Oximetry 98 % Tawanna Fast [facility] Work Phone: Comment on above: Room air 12-09-2019 14:01-0400 Respiratory Rate 16 /min Esthela Briceño RN [facility] Work Phone: Comment on above: Pattern: Unlabored 12-09-2019 14:01-0400 SaO2% (BldA) [Mass fraction] 98 % Esthela Briceño RN [facility]; [facility] Work Phone: Comment on above: Room air 08-16-2019 07:18-0500 BMI (Body Mass Index) 34.38 kg/m2 Tawanna A Fast DO Work Phone: [facility] Work Phone: 08-16-2019 07:18-0500 Body weight 96.62 kg Tawanna A Fast DO Work Phone: [facility] Work Phone: 08-16-2019 07:18-0500 BP Diastolic 70 mm[Hg] Tawanna A Fast DO Work Phone: [facility] Work Phone: Comment on above: Patient Position: Sitting; Cuff Location : Left Arm; Cuff Size: Standard 08-16-2019 07:18-0500 BP Systolic 135 mm[Hg] Tawanna A Fast DO Work Phone: [facility] Work Phone: Comment on above: Patient Position: Sitting; Cuff Location : Left Arm; Cuff Size: Standard 08-16-2019 07:18-0500 BSA (Body Surface Area) 2.05 m2 Tawanna A Fast DO Work Phone: [facility] Work Phone: 08-16-2019 07:18-0500 Height 167.64 cm Tawanna A Fast DO Work Phone: [facility] Work Phone: 08-16-2019 07:18-0500 Pulse (Heart Rate) 105 /min Tawanna A Fast DO Work Phone: [facility] Work Phone: Comment on above: Pattern: Regular 08-16-2019 07:18-0500 Pulse Oximetry 97 % Tawanna Fast [facility] Work Phone: Comment on above: Room air 08-16-2019 07:18-0500 Respiratory Rate 15 /min Tawanna A Fast DO Work Phone: [facility] Work Phone: Comment on above: Pattern: Unlabored 08-16-2019 07:18-0500 SaO2% (BldA) [Mass fraction] 97 % Tawanna A Fast DO Work Phone: [facility]; [facility] Work Phone: Comment on above: Room air 05-13-2019 09:38-0500 BMI (Body Mass Index) 34.28 kg/m2 Marilee Slarb [employer] [facility] Work Phone: 05-13-2019 09:38-0500 Body Temperature 97 [degF] Marilee Slarb [employer] [facility] Work Phone: 05-13-2019 09:38-0500 Body weight 96.33 kg Marilee Slarb [employer] [facility] Work Phone: 05-13-2019 09:38-0500 BP Diastolic 82 mm[Hg] Marilee Slarb [employer] [facility] Work Phone: Comment on above: Patient Position: Sitting; Cuff Location : Left Arm; Cuff Size: Standard 05-13-2019 09:38-0500 BP Systolic 132 mm[Hg] Marilee Slarb [employer] [facility] Work Phone: Comment on above: Patient Position: Sitting; Cuff Location : Left Arm; Cuff Size: Standard 05-13-2019 09:38-0500 BSA (Body Surface Area) 2.05 m2 Marilee Slarb [employer] [facility] Work Phone: 05-13-2019 09:38-0500 Height 167.64 cm Marilee Slarb [employer] [facility] Work Phone: 05-13-2019 09:38-0500 Pulse (Heart Rate) 76 /min Marilee Slarb ACCOUNT GROUP SUPERVISOR [facility] Work Phone: Comment on above: Pattern: Regular 05-13-2019 09:38-0500 Pulse Oximetry 96 % Tawanna Fast [facility] Work Phone: Comment on above: Room air 05-13-2019 09:38-0500 Respiratory Rate 16 /min Marilee Slarb ACCOUNT GROUP SUPERVISOR [facility] Work Phone: Comment on above: Pattern: Unlabored 05-13-2019 09:38-0500 SaO2% (BldA) [Mass fraction] 96 % Marilee Hairston NATHALIE [facility]; [facility] Work Phone: Comment on above: Room air 12-07-2018 09:13-0400 BMI (Body Mass Index) 33.25 kg/m2 Eun Arrington [facility] Work Phone: 12-07-2018 09:13-0400 Body Temperature 97.6 [degF] Eun Arrington [facility] Work Phone: Comment on above: Method: Temporal 12-07-2018 09:13-0400 Body weight 93.44 kg Eun Arrington [facility] Work Phone: 12-07-2018 09:13-0400 BP Diastolic 72 mm[Hg] Eun Arrington [facility] Work Phone: Comment on above: Patient Position: Sitting; Cuff Location : Left Arm; Cuff Size: Standard 12-07-2018 09:13-0400 BP Systolic 130 mm[Hg] Eun Arrington [facility] Work Phone: Comment on above: Patient Position: Sitting; Cuff Location : Left Arm; Cuff Size: Standard 12-07-2018 09:13-0400 BSA (Body Surface Area) 2.03 m2 Eun Arrington [facility] Work Phone: 12-07-2018 09:13-0400 Height 167.64 cm Eun Arrington [facility] Work Phone: 12-07-2018 09:13-0400 Pulse (Heart Rate) 70 /min Eun Arrington [facility] Work Phone: Comment on above: Pattern: Regular 12-07-2018 09:13-0400 Respiratory Rate 16 /min Eun Arrington [facility] Work Phone: Comment on above: Pattern: Unlabored 12-07-2018 09:13-0400 Weight 93.44 kg Tawanna Neeraj [facility] Work Phone: 08-27-2018 07:55-0500 BMI (Body Mass Index) 34.06 kg/m2 Eun Arrington [facility] Work Phone: 08-27-2018 07:55-0500 Body Temperature 97.1 [degF] Eun Arrington [facility] Work Phone: Comment on above: Method: Temporal 08-27-2018 07:55-0500 Body weight 95.71 kg Eun Arrington [facility] Work Phone: 08-27-2018 07:55-0500 BP Diastolic 70 mm[Hg] Eun Arrington [facility] Work Phone: Comment on above: Patient Position: Sitting; Cuff Location : Left Arm; Cuff Size: Standard 08-27-2018 07:55-0500 BP Systolic 124 mm[Hg] Eun Arrington [facility] Work Phone: Comment on above: Patient Position: Sitting; Cuff Location : Left Arm; Cuff Size: Standard 08-27-2018 07:55-0500 BSA (Body Surface Area) 2.05 m2 Eun Arrington [facility] Work Phone: 08-27-2018 07:55-0500 Height 167.64 cm Eun Arrington [facility] Work Phone: 08-27-2018 07:55-0500 Pulse (Heart Rate) 78 /min Eun Arrington [facility] Work Phone: Comment on above: Pattern: Regular 08-27-2018 07:55-0500 Respiratory Rate 16 /min Eun Arrington [facility] Work Phone: Comment on above: Pattern: Unlabored 08-27-2018 07:55-0500 Weight 95.71 kg Tawanna Pickard [facility] Work Phone: 11-27-2012 13:56-0400 BMI (Body Mass Index) 28.41 kg/m2 Kathie Harding [facility] Work Phone: 11-27-2012 13:56-0400 Body Temperature 97.8 [degF] Kathie Harding [facility] Work Phone: 11-27-2012 13:56-0400 Body weight 79.83 kg Kathie Harding [facility] Work Phone: 11-27-2012 13:56-0400 BP Diastolic 74 mm[Hg] Kathie Harding [facility] Work Phone: Comment on above: Patient Position: Sitting; Cuff Location : Left Arm; Cuff Size: Large 11-27-2012 13:56-0400 BP Systolic 114 mm[Hg] Kathie Harding [facility] Work Phone: Comment on above: Patient Position: Sitting; Cuff Location : Left Arm; Cuff Size: Large 11-27-2012 13:56-0400 BSA (Body Surface Area) 1.89 m2 Kathie Harding [facility] Work Phone: 11-27-2012 13:56-0400 Height 167.64 cm Kathie Harding [facility] Work Phone: 11-27-2012 13:56-0400 Pulse (Heart Rate) 82 /min Kathie Harding [facility] Work Phone: Comment on above: Pattern: Regular 11-27-2012 13:56-0400 Respiratory Rate 16 /min Kathie Harding [facility] Work Phone: Comment on above: Pattern: Unlabored 11-27-2012 13:56-0400 Weight 79.83 kg Tawanna Fast [facility] Work Phone: 10-17-2012 13:48-0400 BMI (Body Mass Index) 29.87 kg/m2 Ava Tubbs LPN [facility] Work Phone: 10-17-2012 13:48-0400 Body Temperature 98.7 [degF] Ava Tubbs LPN [facility] Work Phone: Comment on above: Method: Oral 10-17-2012 13:48-0400 Body weight 83.94 kg Ava Tubbs LPN [facility] Work Phone: 10-17-2012 13:48-0400 BP Diastolic 70 mm[Hg] Ava Tubbs NATHALIE [facility] Work Phone: Comment on above: Patient Position: Sitting; Cuff Location : Left Arm; Cuff Size: Standard 10-17-2012 13:48-0400 BP Systolic 122 mm[Hg] Ava Tubbs NATHALIE [facility] Work Phone: Comment on above: Patient Position: Sitting; Cuff Location : Left Arm; Cuff Size: Standard 10-17-2012 13:48-0400 BSA (Body Surface Area) 1.94 m2 Ava Tubbs NATHALIE [facility] Work Phone: 10-17-2012 13:48-0400 Height 167.64 cm Ava Tubbs NATHALIE [facility] Work Phone: 10-17-2012 13:48-0400 Pulse (Heart Rate) 65 /min Ava Tubbs NATHALIE [facility] Work Phone: Comment on above: Pattern: Regular 10-17-2012 13:48-0400 Pulse Oximetry 98 % Tawanna Fast [facility] Work Phone: Comment on above: Room air 10-17-2012 13:48-0400 SaO2% (BldA) [Mass fraction] 98 % Ava Tubbs NATHALIE [facility]; [facility] Work Phone: Comment on above: Room air 10-17-2012 13:48-0400 Weight 83.94 kg Tawanna Pickard [facility] Work Phone: 07-18-2012 13:29-0500 BMI (Body Mass Index) 31.66 kg/m2 Ava Tubbs NATHALIE [facility] Work Phone: 07-18-2012 13:29-0500 Body Temperature 98.7 [degF] Ava Tubbs LPN [facility] Work Phone: Comment on above: Method: Oral 07-18-2012 13:29-0500 Body weight 88.96 kg Ava Tubbs NATHALIE [facility] Work Phone: 07-18-2012 13:29-0500 BP Diastolic 74 mm[Hg] Ava Tubbs LPN [facility] Work Phone: Comment on above: Patient Position: Sitting; Cuff Location : Left Arm; Cuff Size: Standard 07-18-2012 13:29-0500 BP Systolic 130 mm[Hg] Ava Tubbs LPN [facility] Work Phone: Comment on above: Patient Position: Sitting; Cuff Location : Left Arm; Cuff Size: Standard 07-18-2012 13:29-0500 BSA (Body Surface Area) 1.98 m2 Ava Tubbs NATHALIE [facility] Work Phone: 07-18-2012 13:29-0500 Height 167.64 cm Ava Tubbs NATHALIE [facility] Work Phone: 07-18-2012 13:29-0500 Pulse (Heart Rate) 76 /min Ava Tubbs LPN [facility] Work Phone: Comment on above: Pattern: Regular 07-18-2012 13:29-0500 Pulse Oximetry 97 % Tawannarory Pickard [facility] Work Phone: Comment on above: Room air 07-18-2012 13:29-0500 Respiratory Rate 16 /min Ava Tubbs NATHALIE [facility] Work Phone: 07-18-2012 13:29-0500 SaO2% (BldA) [Mass fraction] 97 % Ava Tubbs NATHALIE [facility]; [facility] Work Phone: Comment on above: Room air 07-18-2012 13:29-0500 Weight 88.96 kg Tawanna Fast [facility] Work Phone: 09-13-2011 10:56-0500 BMI (Body Mass Index) 31.66 kg/m2 Ava Tubbs NATHALIE [facility] Work Phone: 09-13-2011 10:56-0500 Body Temperature 97.1 [degF] Ava Tubbs NATHALIE [facility] Work Phone: Comment on above: Method: Oral 09-13-2011 10:56-0500 Body weight 88.96 kg Ava Tubbs LPN [facility] Work Phone: 09-13-2011 10:56-0500 BP Diastolic 80 mm[Hg] Ava Tubbs LPN [facility] Work Phone: Comment on above: Patient Position: Sitting; Cuff Location : Left Arm; Cuff Size: Standard 09-13-2011 10:56-0500 BP Systolic 142 mm[Hg] Ava Tubbs LPN [facility] Work Phone: Comment on above: Patient Position: Sitting; Cuff Location : Left Arm; Cuff Size: Standard 09-13-2011 10:56-0500 BSA (Body Surface Area) 1.98 m2 Ava Tubbs LPN [facility] Work Phone: 09-13-2011 10:56-0500 Height 167.64 cm Ava Tubbs LPN [facility] Work Phone: 09-13-2011 10:56-0500 Pulse (Heart Rate) 78 /min Ava Tubbs LPN [facility] Work Phone: Comment on above: Pattern: Regular 09-13-2011 10:56-0500 Respiratory Rate 16 /min Ava Tubbs LPN [facility] Work Phone: Comment on above: Pattern: Unlabored 09-13-2011 10:56-0500 Weight 88.96 kg Tawanna Fast [facility] Work Phone: Encounters Encounter Date Encounter Type Care Provider Facility Start: 07-09-2025 ambulatory [facility] Facility :[facility] Start: 06-04-2025 [facility] Start: 05-09-2025 End: 05-09-2025 ambulatory Tawanna Fast Facility:[facility] Start: 05-06-2025 ambulatory Tawanna Fast Facility:[facility] Start: 05-06-2025 End: 05-06-2025 ambulatory Tawanna Fast Facility:[facility] Start: 02-28-2025 End: 02-28-[address] Landen Evangelista MD -[facility] Work Phone: Start: 02-28-2025 End: 02-28-[address] Tawanna Pickard DO Work Phone: [facility] Start: 12-06-2024 End: 12-06-2024 Patient encounter procedure Quintin Shay PA-C Work Phone: Orthopaedics Comment on above: Bilateral carpal michell nasir syndrome (Primary Dx) Start: 12-06-2024 End: 12-06-2024 ambulatory QUINTIN SHAY Facility:[facility] Start: 08-30-2024 End: 08-30-2024 ambulatory Tawanna Pickard Facility:[facility] Start: 10-27-2023 End: 10-27-[address] Tawanna Pickard Work Phone: [facility] Work Phone: Start: 10-27-2023 End: 10-27-[address] Tawanna Pickard Work Phone: [facility] Work Phone: Start: 03-23-2023 End: 03-23-2023 ambulatory JOSLYN DU Facility:[id number] Start: 03-23-2023 End: 03-23-2023 Office outpatient visit 15 minutes Joslyn Du MD Work Phone: [facility] Comment on above: Traumatic brain inju ry, without loss of consciousness, subsequent encounter (Primary Dx); Closed skull fracture with cerebral contusion with routine healing, subsequent encounter Start: 03-11-2023 ambulatory JOSLYN TURCIOS Facilit y:[facility] Start: 03-11-2023 End: 03-11-2023 Subsequent hospital visit by physician Ct [facility] CT [facility] Comment on above: Cerebral hemorrhage (HCC) [I61.9] Start: 03-02-2023 End: 03-02-2023 ambulatory JOSLYN DU Facility:[id number] Start: 03-02-2023 End: 03-02-2023 Nursing evaluation of patient and report Jsolyn Du MD Work Phone: [facility] [employer] [facility] Comment on above: Laceration of scalp, sequela (Primary Dx) Start: 02-24-2023 End: 02-24-2023 Phone Encounter Tawanna Fast DO Work Phone: [facility] Start: 02-21-2023 Telephone encounter Joslyn Du MD Work Phone: [facility] [employer] [facility] Comment on above: Orders Appointment Start: 02-19-2023 End: 02-20-2023 Evaluation and management of inpatient RADHA CAMARILLO Facility:[id number] Start: 02-19-2023 End: 02-19-2023 ambulatory THAD ARREOLARO Facility:[id number] Start: 10-28-2022 Review Tawanna Fast DO Work Phone: [facility] Start: 08-29-2022 ambulatory Tawanna A Fast DO [facility] Start: 07-13-2022 End: 2022 Office outpatient visit 25 minutes Tawanna Fast DO Work Phone: [facility] Start: 06-22-2022 End: 06-22-2022 Phone Encounter Tawanna Fast DO Work Phone: [facility] Start: 01-14-2022 End: 01-16-2022 Office outpatient visit 25 minutes Tawanna Fast DO Work Phone: [facility] Start: 01-14-2022 Review Tawanna Fast DO Work Phone: [facility] Start: 09-10-2021 End: 09-13-2021 Office outpatient visit 25 minutes Tawanna Fast DO Work Phone: [facility] Start: 09-10-2021 Review Tawanna Fast DO Work Phone: [facility] Start: 07-12-2021 Review Tawanna Fast DO Work Phone: [facility] Start: 05-17-2021 End: 05-18-2021 Office outpatient visit 25 minutes Tawanna Fast DO Work Phone: [facility] Start: 05-07-2021 End: 05-07-2021 Office outpatient visit 5 minutes Tawanna Fast DO Work Phone: [facility] Start: 03-24-2021 End: 03-24-2021 Phone Encounter Tawanna Fast DO Work Phone: [facility] Start: 03-23-2021 End: 03-23-2021 Office outpatient visit 15 minutes Tawanna Fast DO Work Phone: [facility] Start: 03-19-2021 End: 03-19-2021 Periodic preventive med est patient 40-64yrs Tawanna Fast DO Work Phone: [facility] Start: 03-18-2021 End: 03-18-2021 Phone Encounter Tawanna Fast DO Work Phone: [facility] Start: 03-18-2021 End: 03-18-2021 Lab Order Tawanna Fast DO Work Phone: [facility] Start: 11-18-2020 End: 11-22-2020 Office outpatient visit 25 minutes Tawanna Fast DO Work Phone: [facility] Start: 08-04-2020 End: 08-04-2020 Office outpatient visit 10 minutes Tawanna Fast [facility] Start: 07-15-2020 End: 07-16-2020 Office outpatient visit 25 minutes Tawanna Fast [facility] Start: 07-15-2020 Review Tawanna Fast [facility] Start: 04-07-2020 End: 04-07-2020 Office outpatient visit 25 minutes Tawanna Fast [facility] Start: 04-07-2020 Review Tawanna Fast [facility] Start: 12-09-2019 End: 12-09-2019 Office outpatient visit 15 minutes Tawanna Fast [facility] Start: 10-15-2019 End: 10-15-2019 Office outpatient visit 15 minutes Tawanna Fast [facility] Start: 08-16-2019 End: 08-16-2019 Office outpatient visit 15 minutes Tawanna Fast [facility] Start: 08-14-2019 End: 08-14-2019 Office outpatient visit 5 minutes Tawanna Pickard [facility] Start: 05-13-2019 End: 05-14-2019 Office outpatient visit 25 minutes Tawanna Pickard [facility] Start: 05-13-2019 Review Tawanna Neeraj [facility] Start: 12-07-2018 End: 12-10-2018 Office outpatient visit 25 minutes Tawanna Pickard [facility] Start: 12-07-2018 Review Tawanna Neeraj [facility] Start: 09-06-2018 End: 09-06-2018 Office outpatient visit 5 minutes Tawanna Pickard [facility] Start: 08-27-2018 End: 07-13-2019 Office outpatient visit 25 minutes Tawanna Pickard [facility] Start: 08-27-2018 Review Tawanna Neeraj [facility] Start: 08-13-2018 End: 08-13-2018 Phone Encounter Tawanna Pickard [facility] Start: 09-22-2017 End: 09-22-2017 Phone Encounter Tawanna Pickard [facility] Start: 08-21-2017 Review Tawanna Neeraj [facility] Start: 02-14-2017 End: 02-14-2017 Office outpatient visit 25 minutes Tawanna Pickard [facility] Start: 02-13-2017 End: 02-13-2017 Phone Encounter Tawanna Neeraj [facility] Start: 09-12-2016 End: 09-12-2016 Office outpatient visit 5 minutes Tawanna Pickard [facility] Start: 10-14-2013 End: 10-14-2013 Phone Encounter Tawanna Pickard [facility] Start: 07-31-2013 End: 07-31-2013 Phone Encounter Tawanna Pickard [facility] Start: 11-27-2012 End: 11-27-2012 Patient encounter procedure Tawanna Pickard [facility] Start: 11-26-2012 End: 11-26-2012 Office outpatient visit 15 minutes Tawanna Pickard [facility] Start: 11-20-2012 End: 11-20-2012 Patient encounter procedure Tawanna Pickard [facility] Start: 10-17-2012 End: 10-17-2012 Office outpatient new 60 minutes Tawanna Pickard [facility] Start: 08-02-2012 End: 11-20-2012 Phone Encounter Tawanna Pickard [facility] Start: 07-31-2012 End: 07-31-2012 Patient encounter procedure Tawanna Pickard [facility] Start: 07-23-2012 End: 07-23-2012 Office outpatient visit 15 minutes Tawanna Pickard [facility] Start: 07-20-2012 End: 07-20-2012 Office outpatient new 45 minutes Tawanna Neeraj [facility] Start: 07-18-2012 End: 07-18-2012 Office outpatient visit 40 minutes Tawanna Neeraj [facility] Start: 06-18-2012 End: 06-18-2012 Phone Encounter Tawanna Neeraj [facility] Start: 06-18-2012 End: 06-18-2012 Annotation/Addendum Tawanna Neeraj [facility] Start: 06-15-2012 End: 06-15-2012 Lab Order Tawanna Pickard [facility] Start: 05-18-2012 End: 05-18-2012 Annotation/Addendum Tawanna Fast [facility] Start: 05-16-2012 End: 05-16-2012 Lab Order Tawanna Neeraj [facility] Start: 12-27-2011 End: 12-27-2011 Annotation/Addendum Tawanna Fast [facility] Start: 09-13-2011 End: 09-13-2011 Office outpatient visit 25 minutes Tawannarory Pickard [facility] Start: 08-29-2011 End: 08-29-2011 Annotation/Addendum Tawanna Neeraj [facility] Start: 08-29-2011 End: 08-29-2011 Patient encounter procedure Tawanna Neeraj [facility] Start: 08-23-2011 End: 08-23-2011 Refill Request Tawanna Neeraj [facility] Start: 08-15-2011 End: 08-15-2011 Phone Encounter Tawanna Neeraj [facility] Start: 02-02-2011 End: 02-02-2011 Patient encounter procedure Tawanan Pickard [facility] Start: 02-01-2011 End: 02-01-2011 Phone Encounter Tawanna Fast [facility] Start: 12-30-2009 End: 01-06-2010 Historical Summary Tawannarory Pickard [facility] Procedures Date Procedure Procedure Detail Performing Clinician Start: 12-06-2024 Injection therapeutic carpal tunnel Quintin Shay PA-C Work Phone: Start: 12-12-2022 End: 12-12-2022 Endocrinology Visit Report Procedure Note: See Note; NOTES: [facility] [address] [place] [address] [address] [place], [place] [id number] OFFICE VISIT Date of Service: 12/12/22 MR#: [id number] Acct: [id number] Name: FRANCISCO CRENSHAW Rep #: [id number] : 1975 Provider: Sonya Massey Age/Sex: 47/M Location: [facility] Status: Signed Intake Vital Signs 12/12/22 08:11 Height 5 ft 4 in Weight: 214 lb 4 oz BMI 36.8 BP 140/86 H Blood Pressure Location Lt brachial Position Sitting Respiration 16 Pulse 67 Pulse Source Monitor Temp 97.9 F Temp Source Temporal Pulse Oximetry (%) 96 Oxygen Delivery Method room air Intake Visit Reasons: 6 M FU Chief Complaint: Diabetes English Adjunct [employer] Required: No Is patient in pain?: No Allergies No Known Allergies Allergy (Verified 12/12/22 08:12) Nurse's Note: 3 [facility] Medical History Diabetes mellitus type 1 High cholesterol Obesity Family History Other Diabetes High cholesterol Social History Smoking Status: Never smoker alcohol intake: current alcohol intake frequency: a few times a month Alcohol type: beer HPI HPI Chief Complaint: Diabetes Details: FRANCISCO CRENSHAW, is a 47 M who presents to the office today for follow up. A1C is 7.9% (PCP office) He is using t-slim insulin pump. He is up 9 pounds. He is not using his paris and I cannot get his pump to upload. He states he had to stop [employer] due to cost and he has gained weight. He has been training for a new job position. He states he has switched to [employer] due to difficulty getting others to work. He wants to switch to Omnipod 5. He states he had labs done for Dr. Pickard. Exam Const General: cooperative, healthy appearing, comfortable, no acute distress, well developed and not cushingoid Nutritional Appearance: well nourished Orientation: alert, awake and oriented x3 HENMT Head: normal to inspection Ears: hearing grossly normal bilaterally Nose: external nose normal Mouth: oral mucosae normal Eyes General: appearance normal, both eyes and all related structures Alignment and Position: alignment normal Periorbital: periorbital findings normal Eyelids: eyelids normal Conjunctivae: conjunctivae normal Neck Neck: normal visual inspection Neck mass: No Thyroid: thyroid normal Lymphatic: no lymphadenopathy noted Chest Chest palpation inspection: normal inspection of the chest Resp Effort Inspection: normal respiratory effort, able to speak in complete sentences, symmetric chest movement, no audible wheezes and no cough Auscultation: Bilateral: Clear to Auscultation Cardio Rate: regular rate Rhythm: regular rhythm Pulses: posterior tibial pulses present GI Inspection: normal to inspection Skin General: no rashes or lesions noted Neuro General: patient alert, patient awake and patient oriented x3 Cranial Nerves: CN's II-XI intact bilaterally Cognition: normal cognition Speech: speech normal Gait: normal gait Motor: muscle tone normal throughout Extrem General: no edema Psych Appearance: grossly normal Mental Status: mental status grossly normal Mood: congruent mood Affect: normal affect Speech and Movement: speech and movement normal Attitude: cooperative Thought Process: normal Thought Content: normal Judgment: judgment good Coding Level of Care Code Off vis,est,level 4 Diagnoses Diabetes mellitus type 1 E10.65 Diabetes mellitus complication status: with hyperglycemia Presence of insulin pump Z96.41 Insulin pump titration Z46.81 Mixed hyperlipidemia E78.2 Obesity E66.9 Body mass index: BMI 36.0-36.9 Obesity classification: adult class 2 (BMI 35 - 39.9) Obesity type: due to excess calories Assessment and Plan Assessment and Plan (1) Diabetes mellitus type 1: Status: Chronic Qualifiers: Diabetes mellitus complication status: with hyperglycemia Qualified Code(s): E10.65 - Type 1 diabetes mellitus with hyperglycemia Plan: Diabetes education provided. I am not happy with his control. I need to be able to see his insulin pump. Will get copies of recent labs. (2) Presence of insulin pump: Status: Chronic Plan: I asked him to turn on his blue tooth so that his pump uploads and I can review it. I will do that tomorrow. New order for Omnipod 5 sent to pharmacy. (3) Insulin pump titration: Status: Chronic Plan: I will adjust his pump settings when I can see the information. (4) Mixed hyperlipidemia: Status: Chronic Plan: I will review his labs once I obtain them. (5) Obesity: Status: Acute Qualifiers: Body mass index: BMI 36.0-36.9 Obesity classification: adult class 2 (BMI 35 - 39.9) Obesity type: due to excess calories Plan: Nutritional counseling provided, avoid flour, sugar, and artificial sweeteners. I have spent [35] minutes today reviewing labs, records and history. Time includes coordinating care, interpretation of tests, discussion with patient's other health care providers via telephone. This also includes time I spent with the patient for exam, treatment plan and education as well as documenting clinical information. Medications: New Omnipod 5 G6 Intro Kit (Gen 5) (insulin pump cart,auto,BT-cntr) As directed 1 ea 0RF NS Discontinued semaglutide (Rybelsus) Discontinued Reason: Pt no longer taking 14 mg PO DAILY 90 tabs 3RF 12/12/22 0957 <Electronically signed by Landen Evangelista MD> Date Landen Evangelista MD Cosigner Signature: Date (if applicable) CC: DO Tawanna Wilson DO Work Phone: Start: 07-13-2022 End: 07-13-2022 Wrist min 3 Views Procedure Note: See Note; NOTES: [facility] [address] [place] [address] Wrist min 3 Views MR#: [id number] Acct: [id number] Name: FRANCISCO CRENSHAW Rep #: [id number] : 1975 M 46 From: Alan Bill MD PCP: Dr. Tawanna Pickard, Status: DEP AMB Study: Wrist min 3 Views Date of Exam: 07/13/22 Exam# [id number] Ordering Dr: aTwanna Pickard DO STUDY: X-RAY - RIGHT WRIST REASON FOR EXAM: Male, 46 years old. Pain. TECHNIQUE: 3 view(s) of the wrist were obtained. COMPARISON: None. FINDINGS: Normal visualized distal radius and ulna. Normal radiocarpal articulation. Normal distal radioulnar articulation. Normal carpal bones. Normal carpal articulations. Normal carpometacarpal articulation of the thumb. Normal second through fifth carpometacarpal articulations. Normal visualized metacarpal bones. The soft tissue structures are unremarkable. RAD/Wrist min 3 Views IMPRESSION: Normal x-ray examination of the wrist. Electronically Signed: Alan Bill, at 10:18 EST , CC: Dr. Tawanna Pickard DO Hvac Service Tech: Signed Tawanna Pickard DO Work Phone: Start: 06-24-2022 End: 07-04-2022 Endocrinology Visit Report Procedure Note: See Note; NOTES: [facility] [address] [place] [address] OFFICE VISIT Date of Service: 06/24/22 MR#: [id number] Acct: [id number] Name: FRANCISCO CRENSHAW Rep #: [id number] : 1975 Provider: Sonya Massey Age/Sex: 46/M Location: [facility] Status: Signed Intake Vital Signs 06/24/22 08:33 Height 5 ft 7 in Weight: 205 lb 4 oz BMI 32.1 BP 138/85 H Blood Pressure Location Rt brachial Position Sitting Respiration 18 Pulse 82 Pulse Source Monitor Temp 97.1 F L Temp Source Temporal Pulse Oximetry (%) 97 Oxygen Delivery Method room air Intake Visit Reasons: 6 M FU Chief Complaint: Diabetes English Adjunct Faculty Required: No Accompanied by: Self Is patient in pain?: No Allergies No Known Allergies Allergy (Verified 06/24/22 08:39) Nurse's Note: Pt had A1C 06/22/22 7.3% [facility] Medical History (Updated 07/04/22 @ 10:[address] Landen Evangelista MD) Diabetes mellitus type 1 High cholesterol Family History Other Diabetes High cholesterol Social History Smoking Status: Never smoker alcohol intake: current alcohol intake frequency: a few times a month Alcohol type: beer HPI HPI Chief Complaint: Diabetes Details: FRANCISCO CRENSHAW, is a 46 M who presents to the office today for follow up. A1C is 7.3% He is using insulin pump and CGM. He is having trouble with his sites. He has no other concerns. Exam Const General: cooperative, healthy appearing, comfortable, no acute distress, well developed and not cushingoid Nutritional Appearance: well nourished Orientation: alert, awake and oriented x3 HENMT Head: normal to inspection Ears: hearing grossly normal bilaterally Nose: external nose normal Mouth: oral mucosae normal Eyes General: appearance normal, both eyes and all related structures Alignment and Position: alignment normal Periorbital: periorbital findings normal Eyelids: eyelids normal Conjunctivae: conjunctivae normal Neck Neck: normal visual inspection Neck mass: No Thyroid: thyroid normal Chest Chest palpation inspection: normal inspection of the chest Resp Effort Inspection: normal respiratory effort, able to speak in complete sentences, symmetric chest movement, no audible wheezes and no cough Cardio Rate: regular rate Rhythm: regular rhythm GI Inspection: normal to inspection Skin General: no rashes or lesions noted Neuro General: patient alert, patient awake and patient oriented x3 Cranial Nerves: CN's II-XI intact bilaterally Cognition: normal cognition Speech: speech normal Gait: normal gait Motor: muscle tone normal throughout Extrem General: no edema Psych Appearance: grossly normal Mental Status: mental status grossly normal Mood: congruent mood Affect: normal affect Speech and Movement: speech and movement normal Attitude: cooperative Thought Process: normal Thought Content: normal Judgment: judgment good Coding Level of Care Code Off vis,est,level 3 Diagnoses Diabetes mellitus type 1 E10.65 Diabetes mellitus complication status: with hyperglycemia Presence of insulin pump Z96.41 Mixed hyperlipidemia E78.2 Overweight E66.3 Assessment and Plan Assessment and Plan (1) Diabetes mellitus type 1: Status: Acute Qualifiers: Diabetes mellitus complication status: with hyperglycemia Qualified Code(s): E10.65 - Type 1 diabetes mellitus with hyperglycemia Plan: Diabetes education provided. (2) Presence of insulin pump: Status: Chronic Plan: Insulin pump management was performed. Insulin pump settings were reviewed with the patient. Settings were adjusted to improve control and to avoid hypoglycemia. (3) Mixed hyperlipidemia: Status: Chronic Plan: Continue statin. (4) Overweight: Status: Chronic Plan: Nutritional counseling provided, avoid flour, sugar, and artificial sweeteners. I have spent [26] minutes today reviewing labs, records and history. Time includes coordinating care, interpretation of tests, discussion with patient's other health care providers via telephone. This also includes time I spent with the patient for exam, treatment plan and education as well as documenting clinical information. Medications: Refilled semaglutide (Rybelsus) 14 mg PO DAILY 90 tabs 3RF rosuvastatin 20 mg PO DAILY 90 tabs 3RF insulin aspart U-100 (Novolog U-100 Insulin aspart) uses up to 130U qd via pump subcut .continuous; 120 mL 3RF MDD 130 units Dexcom G6 Sensor (blood-glucose sensor) As directed 9 ea 1RF NS E10.9 - Type 1 diabetes mellitus without complications 07/04/22 1021 <Electronically signed by Landen Evangelista MD> Date Landen Evangelista MD Cosign Signature: Date (if applicable) CC: Tawanna Pickard DO Work Phone: Start: 11-19-2021 End: 11-22-2021 Endocrinology Visit Report Comments: See Note; NOTES: [facility] [address] [place] [address]. [address] [place] [address] OFFICE VISIT Date of Service: 11/19/21 MR#: [id number] Acct: [id number] Name: FRANCISCO CRENSHAW Rep #: [id number] : 1975 Provider: Sonya Massey Age/Sex: 46/M Location: [facility] [place] Status: Signed Intake Vital Signs 11/19/21 09:09 Height 5 ft 7 in Weight: 203 lb 6 oz BMI 31.8 BP 140/82 H Blood Pressure Location Rt brachial Position Sitting Respiration 18 Pulse 73 Pulse Source Monitor Temp 96.5 F L Temp Source Temporal Pulse Oximetry (%) 98 Oxygen Delivery Method room air Intake Visit Reasons: 6 M FU Chief Complaint: Diabetes English Adjunct Faculty Required: No Accompanied by: self Is patient in pain?: No Allergies No Known Allergies Allergy (Verified 11/19/21 09:16) [facility] Medical History Diabetes High cholesterol Family History Other Diabetes High cholesterol Social History Smoking Status: Never smoker alcohol intake: current alcohol intake frequency: a few times a month Alcohol type: beer HPI HPI Chief Complaint: Diabetes Details: FRANCISCO CRENSHAW, is a 46 M who presents to the office today for follow up. A1C is down to 7.2%. He has had a few problems with sites. He is taking more carb boluses. No other complaints. Exam Const General: cooperative, healthy appearing, comfortable, no acute distress, well developed and not cushingoid Nutritional Appearance: well nourished Orientation: alert, awake and oriented x3 HENMT Head: normal to inspection Ears: hearing grossly normal bilaterally Nose: external nose normal Mouth: oral mucosae normal Eyes General: appearance normal, both eyes and all related structures Alignment and Position: alignment normal Periorbital: periorbital findings normal Eyelids: eyelids normal Conjunctivae: conjunctivae normal Neck Neck: normal visual inspection Neck mass: No Thyroid: thyroid normal Lymphatic: no lymphadenopathy noted Chest Chest palpation inspection: normal inspection of the chest Resp Effort Inspection: normal respiratory effort, able to speak in complete sentences, symmetric chest movement, no audible wheezes and no cough Auscultation: Bilateral: Clear to Auscultation Cardio Rate: regular rate Rhythm: regular rhythm Pulses: posterior tibial pulses present GI Inspection: normal to inspection Palpation: soft Skin General: no rashes or lesions noted Neuro General: patient alert, patient awake and patient oriented x3 Cranial Nerves: CN's II-XI intact bilaterally Cognition: normal cognition Speech: speech normal Gait: normal gait Motor: muscle tone normal throughout Extrem General: no edema Psych Appearance: grossly normal Mental Status: mental status grossly normal Mood: congruent mood Affect: normal affect Speech and Movement: speech and movement normal Attitude: cooperative Thought Process: normal Thought Content: normal Judgment: judgment good Results POC A1C POC A1C 7.2 % Last Edit by Larissa Silva on 11/19/21 09:19 Coding Level of Care Code Off vis,est,level 4 Diagnoses Diabetes E10.65 Diabetes mellitus type: type 1 Diabetes mellitus complication status: with hyperglycemia Presence of insulin pump Z96.41 Mixed hyperlipidemia E78.2 Overweight E66.3 Assessment and Plan Assessment and Plan (1) Diabetes: Status: Chronic Qualifiers: Diabetes mellitus type: type 1 Diabetes mellitus complication status: with hyperglycemia Qualified Code(s): E10.65 - Type 1 diabetes mellitus with hyperglycemia Plan - Dr. Landen Evangelista MD: Diabetes education provided. Good control. (2) Presence of insulin pump: Status: Chronic Plan - Dr. Landen Evangelista MD: Insulin pump management was performed. Insulin pump settings were reviewed with the patient. Settings were adjusted to improve control and to avoid hypoglycemia. CGM shows post meal highs. I asked him to lower his carb ratio. (3) Mixed hyperlipidemia: Status: Chronic Plan - Dr. Landen Evangelista MD: Continue rosuvastatin. (4) Overweight: Status: Chronic Plan - Dr. Landen Evangelista MD: Nutritional counseling provided, avoid flour, sugar, and artificial sweeteners. I have spent [30] minutes today reviewing labs, records and history. Time includes coordinating care, interpretation of tests, discussion with patient's other health care providers via telephone. This also includes time I spent with the patient for exam, treatment plan and education as well as documenting clinical information. Plan Details Other Medications: Refilled: insulin aspart U-100 (Novolog U-100 Insulin aspart) uses up to 130U qd via pump subcut .continuous; 120 mL 3RF MDD 130 units 11/22/21 0810 <Electronically signed by Landen Evangelista MD> Date Landen Evangelista MD Cosigner Signature: Date (if applicable) CC: Tawanna Pickard DO Work Phone: Start: 05-21-2021 End: 05-24-2021 Endocrinology Visit Report Comments: See Note; NOTES: [facility] [address] [place] [address] OFFICE VISIT Date of Service: 05/21/21 MR#: [id number] Acct: [id number] Name: FRANCISCO CRENSHAW Rep #: [id number] : 1975 Provider: Sonya Massey Age/Sex: 45/M Location: [facility] [place] Status: Signed Intake Vital Signs 05/21/21 09:34 05/21/21 09:42 Height 5 ft 7 in Weight: 200 lb 8 oz BMI 31.4 30.7 BP 118/80 Blood Pressure Location Rt brachial Position Sitting Respiration 16 Pulse 89 Pulse Source Monitor Temp 97.1 F L Temp Source Temporal Pulse Oximetry (%) 97 Oxygen Delivery Method room air Intake Visit Reasons: 6 M FU Chief Complaint: Diabetes English Adjunct Faculty Required: No Accompanied by: self Is patient in pain?: No Allergies No Known Allergies Allergy (Verified 05/21/21 09:41) [facility] Medical History (Updated 03/19/21 @ 13:16 by Ewa Jorgensen JUNIOR ANALYST, JUNIOR ANALYST-C) Diabetes High cholesterol Family History Other Diabetes High cholesterol Social History Smoking Status: Never smoker alcohol intake: current alcohol intake frequency: a few times a month Alcohol type: beer HPI HPI Chief Complaint: Diabetes Details: FRANCISCO CRENSHAW, is a 45 M who presents to the office today for follow up of type 1 diabetes. Blood sugars are up. He isn't paying as much attention. We reviewed his Medtronic upload. He isn't putting in enough carbs. Exam Const General: cooperative, healthy appearing, comfortable, no acute distress, well developed and not cushingoid Nutritional Appearance: well nourished Orientation: alert, awake and oriented x3 [facility] Head: normal to inspection Ears: hearing grossly normal bilaterally Nose: external nose normal Mouth: oral mucosae normal Eyes General: appearance normal, both eyes and all related structures Alignment and Position: alignment normal Periorbital: periorbital findings normal Eyelids: eyelids normal Conjunctivae: conjunctivae normal Neck Neck: normal visual inspection Neck mass: No Thyroid: thyroid normal Lymphatic: no lymphadenopathy noted Chest Chest palpation inspection: normal inspection of the chest Resp Effort Inspection: normal respiratory effort, able to speak in complete sentences, symmetric chest movement, no audible wheezes and no cough Auscultation: Bilateral: Clear to Auscultation Cardio Rate: regular rate Rhythm: regular rhythm Pulses: posterior tibial pulses present GI Inspection: normal to inspection Auscultation: normal bowel sounds Palpation: soft and no hepatosplenomegaly Skin General: no rashes or lesions noted Neuro General: patient alert, patient awake and patient oriented x3 Cranial Nerves: CN's II-XI intact bilaterally Cognition: normal cognition Speech: speech normal Gait: normal gait Motor: muscle tone normal throughout Extrem General: no edema Psych Appearance: grossly normal Mental Status: mental status grossly normal Mood: congruent mood Affect: normal affect Speech and Movement: speech and movement normal Attitude: cooperative Thought Process: normal Thought Content: normal Judgment: judgment good Coding Level of Care Code Off vis,est,level 3 Diagnoses Diabetes E10.65 Diabetes mellitus type: type 1 Diabetes mellitus complication status: with hyperglycemia Presence of insulin pump Z96.41 Mixed hyperlipidemia E78.2 Assessment and Plan Assessment and Plan (1) Diabetes: Status: Chronic Qualifiers: Diabetes mellitus type: type 1 Diabetes mellitus complication status: with hyperglycemia Qualified Code(s): E10.65 - Type 1 diabetes mellitus with hyperglycemia (2) Presence of insulin pump: Status: Chronic (3) Mixed hyperlipidemia: Status: Chronic Plan - Dr. Landen Evangelista MD: Diabetes education provided. Insulin pump management was performed. Insulin pump settings were reviewed with the patient. Settings were adjusted to improve control and to avoid hypoglycemia. Insulin pattern management. Nutritional counseling provided, avoid flour, sugar, and artificial sweeteners. I have spent [28] minutes today reviewing labs, records and history. Time includes coordinating care, interpretation of tests, discussion with patient's other health care providers via telephone. This also includes time I spent with the patient for exam, treatment plan and education as well as documenting clinical information. Plan Details Other Medications: Refilled: semaglutide (Rybelsus) 14 mg PO DAILY 90 tabs 3RF 05/24/21 1224 <Electronically signed by Landen Evangelista MD> Date Landen Evangelista MD Cosigner Signature: Date (if applicable) CC: Tawanna Pickard DO Work Phone: Start: 03-19-2021 End: 03-19-2021 Virtual Office Visit Comments: See Note; NOTES: [facility] [address] [place] [address]. [place] [address] OFFICE VISIT Date of Service: 03/19/21 MR#: [id number] Acct: [id number] Patient: FRANCISCO CRENSHAW Rep #: [id number] : 1975 Provider: KENDALL mcdaniels Age/Sex: 45/M Location: [facility] Status: Signed Intake Intake Visit Reasons: COVID-19 Chief Complaint: Diabetes Allergies No Known Allergies Allergy (Verified 03/19/21 10:15) Medications cholecalciferol (vitamin D3) 125 mcg (5,000 unit) disintegrating tablet unit PO DAILY tab 06/14/19 [History Confirmed 03/19/21] rosuvastatin 20 mg tablet 20 mg PO DAILY #90 tab 10/07/19 [Rx Confirmed 03/19/21] coenzyme Q10 10 mg capsule 10 mg PO ONCE 11/19/20 [History Confirmed 03/19/21] blood-glucose sensor #9 ea 01/04/21 [Rx Confirmed 03/19/21] blood-glucose transmitter #1 ea 01/04/21 [Rx Confirmed 03/19/21] insulin aspart U-100 100 unit/mL subcutaneous solution See Rx Instructions SC .continuous #120 ml MDD 130 units 01/15/21 [Rx Confirmed 03/19/21] semaglutide 14 mg tablet 14 mg PO DAILY #90 tab 01/15/21 [Rx Confirmed 03/19/21] [facility] Medical History (Updated 03/19/21 @ 13:16 by Ewa Jorgensen NP, CLARIBEL-C) Diabetes High cholesterol Family History Other Diabetes High cholesterol Social History Smoking Status: Never smoker alcohol intake: current alcohol intake frequency: a few times a month Alcohol type: beer HPI HPI Chief Complaint: Diabetes Details: Patient was informed that this visit will be billed to patient. This visit was conducted during COVID-19 pandemic. Statement read to the patient: This telehealth phone visit is being offered during our stay at home measures in response to the pandemic. It is subject to an office visit charge. The patient consents to continue. Symptom onset occurred: 03/14/2021 Positive COVID-19 test occurred: 03/18/2021 COVID vaccine administered: YES, 1 dose on oxygen or needed to titrate up? NO The FDA has authorized the emergency use of monoclonal antibody treatment (bamlanivimab/etesevimab or casirivimab/imdevimab) for mild to moderate COVID-19 in adults and pediatric patients with positive results of direct SARS???Cov???2 viral testing ages 12 and older, at least 40 kg, who were not at high risk for progressing to severe COVID-19 and or hospitalization. The significant known and potential risks (allergic reactions or side effects from injection including brief pain, bleeding, bruising of the skin, soreness, swelling, possible infection at the infusion site) and benefits (decrease chance of progression to severe COVID-19) of a monoclonal antibody infusion, and the extent to which such potential risks and benefits are unknown. Patients treated with monoclonal antibody infusion should continue to self-isolate and use infection control measures (such as wear mask, isolate, social distance, avoid sharing personal items, clean and disinfect high touch surfaces, and frequent handwashing) according to the CDC guidelines. The fact sheet for patients, parents and caregivers will be provided prior to the administration of the medication. No drugs are approved by the FDA at this time to treat outpatients with mild or moderate symptoms of COVID-19. The following information was communicated to the patient or caregiver: Monoclonal antibody infusion is not an FDA approved drug. The FDA has authorized the emergency use of monoclonal antibody therapy. The patient had the option to refuse or accept treatment with m onoclonal antibody therapy. The patient was informed that the number of people treated with monoclonal antibody therapy at this time is small. The potential benefits and the potential risks of monoclonal antibody therapy are not fully known. Potential benefits of monoclonal antibody include a reduced risk of progressing to severe COVID-19 infection. Potential risks or side effects of monoclonal antibody therapy include allergic reactions, side effects from injection including brief pain, bleeding, bruising of the skin, soreness, swelling, possible infection at the infusion site. The patient stated understanding of this information communicated and wished to proceed with monoclonal antibody infusion therapy. Current symptoms include: Cough, fever, headache, nausea, general malaise. The patient states understanding of this information communicated and wishes to proceed with monoclonal antibody infusion therapy. Patient agrees to receive either balanivimab/etesvimab or casirivimab/imdevimab upon availability. SX onset: 03/14/2021 Postiive test: 03/18/2021 SX: fever, headache, congestion Oxygen: NO Vaccine: ONE DOSE Qualifier: Diabetes ROS Const Constitutional: Positive for fatigue, fever(s), headache(s), decreased energy, malaise and weakness ENT ENT: Positive for nasal congestion and headache(s) Resp Respiratory: Positive for cough Gastro GI: Positive for nausea/dyspepsia Neuro Neurology: Positive for weakness and headache(s) Endo Endocrine: Positive for fatigue Exam Const General: cooperative Orientation: alert, awake and oriented x3 Resp Effort Inspection: normal respiratory effort and able to speak in complete sentences Neuro General: patient alert, patient awake and patient oriented x3 Cognition: normal cognition Speech: speech normal Psych Mental Status: mental status grossly normal Mood: congruent mood Attitude: cooperative Thought Process: normal Thought Content: normal Judgment: judgment good Details: Details:: Exam was limited due to phone visit with no video. Quality Reporting Tobacco Screening ([facility] 138) Smoking Status: Never smoker Coding Level of Care Code New Pt Level 2 Telephone Patient Type New History Problem Focused Exam Problem Focused Medical Decision Making Low Complexity Diagnoses COVID-19 U07.1 Type I diabetes mellitus E10.9 BMI 30.0-30.9,adult Z68.30 Time Spent (min) 10 Comment phone visit Assessment and Plan Assessment and Plan (1) COVID-19: Status: Acute Plan - Ewa Jorgensen JUNIOR ANALYST, JUNIOR ANALYST-C: The patient remains appropriate for the Monoclonal Antibody Infusion. The patient states understanding of this information communicated and wishes to proceed with monoclonal antibody infusion therapy. Patient agrees to receive either balanivimab/etesvimab or casirivimab/imdevimab upon availability. (2) Type I diabetes mellitus: Status: Acute (3) BMI 30.0-30.9,adult: Status: Acute 03/19/21 1316 <Electronically signed by Ewa Jorgensen NP JUNIOR ANALYST-C> Date Ewa Jorgensen NP JUNIOR ANALYST-C Cosigner Signature: Date (if applicable) CC: Dr. Tawanna Pickard, DO Tawanna Pickard DO Work Phone: Start: 11-19-2020 End: 11-19-2020 Endocrinology Visit Report Comments: See Note; NOTES: [facility] [address] [place] [address]. [address] [place] [address] OFFICE VISIT Date of Service: 11/19/20 MR#: [id number] Acct: [id number] Name: FRANCISCO CRENSHAW Rep #: [id number] : 1975 Provider: Sonya Massey Age/Sex: 45/M Location: [facility] Status: Signed Intake Vital Signs 11/19/20 11:00 11/19/20 11:09 Height 5 ft 8 in Weight: 200 lb BMI 30.4 30.7 BP 130/86 H Blood Pressure Location Lt brachial Position Sitting Respiration 16 Pulse 74 Pulse Source Monitor Temp 97.2 F L Temp Source Temporal Pulse Oximetry (%) 98 Oxygen Delivery Method room air Intake Visit Reasons: 5 M FU-R/S FROM [facility] Chief Complaint: Diabetes English Adjunct Faculty Required: No Accompanied by: None Is patient in pain?: No Allergies No Known Allergies Allergy (Verified 11/19/20 11:08) [facility] Medical History Diabetes High cholesterol Family History Other Diabetes High cholesterol Social History Smoking Status: Never smoker alcohol intake: current alcohol intake frequency: a few times a month Alcohol type: beer HPI HPI Chief Complaint: Diabetes Details: FRANCISCO CRENSHAW, is a 45 M who presents to the office today for follow up. A1C is further improved to 7.0% He is using T-slim insulin pump with control IQ and Dexcom CGM. He isn't following the rules, but he is getting a good outcome. He has some questions regarding exercise. He has no complaints. Exam Const General: cooperative, healthy appearing, comfortable, no acute distress, well developed and not cushingoid Nutritional Appearance: well nourished Orientation: alert, awake and oriented x3 HENMT Head: normal to inspection Ears: hearing grossly normal bilaterally Nose: external nose normal Mouth: oral mucosae normal Eyes General: appearance normal, both eyes and all related structures Alignment and Position: alignment normal Periorbital: periorbital findings normal Eyelids: eyelids normal Conjunctivae: conjunctivae normal Neck Neck: normal visual inspection Neck mass: No Thyroid: thyroid normal Lymphatic: no lymphadenopathy noted Chest Chest palpation inspection: normal inspection of the chest Resp Effort Inspection: normal respiratory effort, able to speak in complete sentences, symmetric chest movement, no audible wheezes and no cough Cardio Rate: regular rate Rhythm: regular rhythm Pulses: posterior tibial pulses present GI Inspection: normal to inspection Auscultation: normal bowel sounds Palpation: soft and no hepatosplenomegaly Skin General: no rashes or lesions noted Neuro General: patient alert, patient awake and patient oriented x3 Cranial Nerves: CN's II-XI intact bilaterally Cognition: normal cognition Speech: speech normal Gait: normal gait Motor: muscle tone normal throughout Extrem General: no edema Psych Appearance: grossly normal Mental Status: mental status grossly normal Mood: congruent mood Affect: normal affect Speech and Movement: speech and movement normal Attitude: cooperative Thought Process: normal Thought Content: normal Judgment: judgment good Coding Level of Care Code Off vis,est,level 3 Diagnoses Diabetes E10.65 Diabetes mellitus type: type 1 Diabetes mellitus complication status: with hyperglycemia Presence of insulin pump Z96.41 Mixed hyperlipidemia E78.2 Overweight E66.3 Assessment and Plan Assessment and Plan (1) Diabetes: Status: Chronic Qualifiers: Diabetes mellitus type: type 1 Diabetes mellitus complication status: with hyperglycemia Qualified Code(s): E10.65 - Type 1 diabetes mellitus with hyperglycemia Plan - Dr. Landen Evangelista MD: Diabetes education provided. Questions answered. (2) Presence of insulin pump: Status: Chronic Plan - Dr. Landen Evangelista MD: Insulin pump management was performed. Insulin pump settings were reviewed with the patient. Settings were adjusted to improve control and to avoid hypoglycemia. (3) Mixed hyperlipidemia: Status: Chronic Plan - Dr. Landen Evangelista MD: Continue statin (4) Overweight: Status: Chronic Plan - Dr. Landen Evangelista MD: Nutritional counseling provided, avoid flour, sugar, and artificial sweeteners. Discussed the impact of alcohol on his blood sugars. I have spent [28] minutes today reviewing labs, records and history. Time includes coordinating care, interpretation of tests, discussion with patient's other health care providers via telephone. This also includes time I spent with the patient for exam, treatment plan and education as well as documenting clinical information. 11/19/20 5221 <Electronically signed by Landen Evangelista MD> Date Landen Evangelista MD Cosigner Signature: Date (if applicable) CC: Dr. Tawanna Pickard, DO Tawanna Pickard DO Work Phone: Start: 06-11-2020 End: 06-12-2020 Endocrinology Visit Report Comments: See Note; NOTES: [facility] [address] [place] [address] OFFICE VISIT Date of Service: 06/11/20 MR#: [id number] Acct: [id number] Name: FRANCISCO CRENSHAW Rep #: [id number] : 1975 Provider: Sonya Massey Age/Sex: 44/M Location: [facility] [place] Status: Signed Intake Vital Signs 06/11/20 Height 5 ft 8 in 06/11/20 Weight: 202 lb 06/11/20 BMI 30.7 06/11/20 BP 124/80 H Intake Visit Reasons: 4 M FU Chief Complaint: Diabetes Allergies No Known Allergies Allergy (Verified 06/11/20 09:20) [facility] Medical History Diabetes (Acute) High cholesterol (Acute) Family History Other Diabetes High cholesterol Social History (Updated 06/12/20 @ 08:[address] Landen Evangelista MD) Smoking Status: Never smoker alcohol intake: current alcohol intake frequency: a few times a month Alcohol type: beer HPI HPI Chief Complaint: Diabetes Details: FRANCISCO CRENSHAW, is a 44 M who presents to the office today for follow up of diabetes. A1C went from 9.3% to 7.1%. He is using Tandem pump with Dexcom CGM. I uploaded his pump. Average glucose 160, range 41-375 Time in target 68%. He is relying on the control IQ, he isn't entering carbs more than once a day. He is feeling well with the exception that his muscles are more prone to injury and take longer to heal. ROS Const Constitutional: No anorexia, body ache, chills, excessive sweating, fatigue, fever(s), frequent falls, headache(s), decreased energy, malaise, night sweats, snoring, weakness, weight change, sleep problems, abnormal sleep pattern, change in appetite or other Eyes Eyes: No blurry vision, change in vision, double vision, discharge, dry eyes, bulging eyes, floaters, visual disturbances, eye pain, light sensitivity, spots in vision, tunnel vision or other ENT ENT: No abnormal hearing, ear pain, ear discharge, ear pressure, hearing loss, tinnitus, dizziness/vertigo, balance problems, nosebleed/epistaxis, nasal congestion, nasal obstruction, nose pain, sinus pressure, sinus pain, nasal discharge, post nasal drip, headache(s), facial pain, dental pain, dry mouth, difficulty swallowing, bad breath, hoarseness, lip swelling, mouth lesions, mouth pain, neck pain, sore throat, tongue swelling, throat swelling or other Cardio Cardiology: No chest pain at rest, chest pain with exertion, leg pain with exertion, excessive sweating, shortness of breath, dyspnea on exertion, generalized swelling, irregular heart rhythm, lightheadedness, orthopnea, radiating jaw, neck or arm pain, fast heart rate, slow heart rate, palpitations or other Musc Musculoskeletal: No abnormal walking, joint pain, back pain, deformity, joint swelling, limited range of motion, loss of height, muscle cramps, muscle weakness, decreased muscle mass, body aches, neck pain, numbness, radiating pain into limb, stiffness, tingling, Arthritis, restless legs, leg pain with exertion, sciatica, leg pain at night or other Neuro Neurology: No abnormal walking, abnormal hearing, abnormal movements, abnormal speech, behavioral changes, confusion, unsteady gait/balance, dizziness, weakness, frequent falls, headache(s), lack of coordination, loss of vision, memory loss, numbness, tingling, visual disturbances, restless legs, fainting, tremor(s) or other Psych Psychiatric: No abnormal sleep pattern, No lack of enjoyment, No anxiety, No behavioral changes, No change in appetite, No confusion, No depression, No difficulty concentrating, No hopelessness, No irritability, No memory loss, No mood swings, No panic attacks, No paranoia, No Thoughts of harming yourself/Others, No hallucinations, No other Brayan/Lymp Hematologic/Lymphatic: No easy bleeding, easy bruising, enlarged lymph nodes or other Resp Respiratory: No cough, change in phlegm color, chest congestion, excessive phlegm production, hemoptysis, pain on inspiration, shortness of breath, pain with cough, snoring, stridor, wheezing or other Gastro GI: No abdominal pain, belching, bloating, change in bowel habits, change in stool character, coffee ground emesis, constipation, cramping, diarrhea, heartburn, difficulty swallowing, feeling full early, excessive flatus, incontinent of stools, Vomiting blood/hematemesis, blood in stool, loose stools, Black,tarry stools, nausea/dyspepsia, pain with swallowing, vomiting or other Skin Skin: No acne, hair loss, change in hair, nail changes, boil, change in skin color, dry skin, redness, excessive hair growth, yellowing of the skin, lesions, itching, rash, skin pain, skin ulcer, sores, skin swelling, wounds or other Breast Breast: No change in breast shape, breast lump, breast pain, breast skin changes, breast swelling, nipple discharge or other Endo Endocrine: No change in body appearance, cold intolerance, excessive sweating, fatigue, flushing, heat intolerance, increased thirst/drinking, increased hunger, increased urination or other Aller/Imm Allergy/Immunologic: No food intolerance, itchy eyes, lip swelling, seasonal allergy symptoms, throat swelling, tongue swelling, hives, wheezing or other Exam Const General: cooperative, healthy appearing, comfortable, no acute distress, well developed, not cushingoid Nutritional Appearance: well nourished Orientation: alert, awake, oriented x3 HENMT Head: normal to inspection Ears: hearing grossly normal bilaterally Nose: external nose normal Mouth: oral mucosae normal Eyes General: appearance normal, both eyes and all related structures Alignment and Position: alignment normal Periorbital: periorbital findings normal Eyelids: eyelids normal Conjunctivae: conjunctivae normal Neck Neck: normal visual inspection Neck mass: No Thyroid: thyroid normal Carotids: no bruits Lymphatic: no lymphadenopathy noted Chest Chest palpation inspection: normal inspection of the chest Resp Effort Inspection: normal respiratory effort, able to speak in complete sentences, symmetric chest movement, no audible wheezes, no cough Auscultation: Bilateral: Clear to Auscultation Cardio Rate: regular rate Rhythm: regular rhythm Pulses: posterior tibial pulses present GI Inspection: normal to inspection Auscultation: normal bowel sounds Palpation: soft, no hepatosplenomegaly Musc Musculoskeletal: No muscle weakness Skin General: no rashes or lesions noted Neuro General: alert, awake, oriented x3 Cranial Nerves: CN's II-XI intact bilaterally Cognition: normal cognition Speech: speech normal Gait: normal gait Motor: muscle tone normal throughout Extrem General: no edema Psych Appearance: grossly normal Mental Status: mental status grossly normal Mood: congruent mood Affect: normal affect Speech and Movement: speech and movement normal Attitude: cooperative Thought Process: normal Thought Content: normal Judgment: judgment good Results POC A1C POC A1C 7.1 % Last Edit by Carmela Asher on 06/11/20 09:25 Assessment Plan 1. Type 1 diabetes mellitus with hyperglycemia E10.65 Plan Diabetes education provided. He said he had labs this summer for Dr. Pickard--please send a copy. 2. Presence of insulin pump Z96.41 Plan Insulin pump management was performed. Insulin pump settings were reviewed with the patient. Settings were adjusted to improve control and to avoid hypoglycemia. I counseled him regarding a better strategy on how to use his insulin pump. I encouraged him to enter his carbs. 3. Mixed hyperlipidemia E78.2 Plan Continue statin. 4. Overweight E66.3 Plan Nutritional counseling provided, avoid flour, sugar, and artificial sweeteners. Plan Detail Other Orders Orders: POC A1C 06/11/20 E11.9 Coding Level of Care Code Off vis,est,level 4 Diagnoses Type 1 diabetes mellitus with hyperglycemia E10.65 ?Diabetes mellitus type: type 1 ?Diabetes mellitus complication status: with hyperglycemia Presence of insulin pump Z96.41 Mixed hyperlipidemia E78.2 Overweight E66.3 06/12/20 0813 <Electronically signed by Landen Evangelista MD> Date Landen Evangelista MD Cosigner Signature: Date (if applicable) CC: DO Tawanna Wilson Start: 04-23-2020 End: 04-23-2020 TXT - Blood Flow Screening Comments: See Note; NOTES: [facility] [place] [address] 04/22/20 0935 MR#: [id number] Acct: [id number] Name: FRANCISCO CRENSHAW Rep #: [id number] : 1975 44 From: Massimo Costello MD Attending Dr: Dr. Tawanna Pickard, DO Status: REG RE F Ordering Dr: Date: 04/23/20 Location: [facility] Sex: M C Admitted: Reason For Study: screening Carotid Duplex Ultrasound Abdominal Aorta The right ECA velocity is greater than 125 cm/s. The maximal outside diameter of the proximal aorta The right maximum ICA velocity is 93.7/15.2 cm/s. measures 1.47 x 1.57 cm in the cross-sectional There is insignificant plaque formation noted on axis. the right side. The maximal outside diameter of the proximal aorta The left ECA velocity is less than 125 cm/s. measures 1.52 cm in the longitudinal axis. The left maximum ICA velocity is 53.5/17.0 cm/s. There is insignificant plaque formation noted on the left side. Ankle Brachial Index The right ankle/ brachial index is 1.2. The left ankle/ brachial index is 1.1. Medical History and Assessment The client presents with a history of diabetes. The heart rate is 65 beats per minute. The heart rhythm is regular. The right blood pressure is 128/80. The left blood pressure is 130/84. The assessment was performed by Henry Vogt RVT. Interpretation Summary Normal carotid artery screening (0 to 15% narrowing). Normal aortic ultrasound exam. The ankle/brachial index is normal (1.0 or greater). _ Ordering Physician: Tawanna Pickard D.O. Performed By: Wyatt Vogt RVT 04/23/20 1246 Date Massimo Costello MD CC: Dr. Tawanna Pickard, DO Date Dictated: 04/22/20 0935 Date Transcribed: 04/23/20 1246 [employer]vac Service Tech: Signed Tawanna Pickard Start: 02-10-2020 End: 02-10-2020 Endocrinology Visit Report Comments: See Note; NOTES: [facility] [address] [place] [address] OFFICE VISIT Date of Service: 02/06/20 MR#: [id number] Acct: [id number] Name: FRANCISCO CRENSHAW Rep #: [id number] : 1975 Provider: Sonya Massey Age/Sex: 44/M Location: [facility] [place] Status: Signed Intake Vital Signs 02/10/20 BMI 32.3 02/06/20 Height 5 ft 8 in 02/06/20 Weight: 205 lb 02/06/20 BMI 31.1 02/06/20 BP 124/78 H Intake Visit Reasons: 4 month f/u Chief Complaint: Diabetes Allergies No Known Allergies Allergy (Verified 08/26/19 09:58) [facility] Social History (Updated 02/10/20 @ 11:[address] Landen Evangelista MD) Smoking Status: Never smoker alcohol intake: current alcohol intake frequency: a few times a month Alcohol type: beer HPI HPI Chief Complaint: Diabetes Details: FRANCISCO CRENSHAW, is a 44 M who presents to the office today for follow up of type 1 diabetes. A1C went from 8% to 7.4% He is using insulin pump. He is pleased with his progress. Questions answered. Exam Const General: cooperative, healthy appearing, comfortable, no acute distress, well developed, not cushingoid Nutritional Appearance: well nourished Orientation: alert, awake, oriented x3 HENMT Head: normal to inspection Ears: hearing grossly normal bilaterally Nose: external nose normal Mouth: oral mucosae normal Eyes General: appearance normal, both eyes and all related structures Alignment and Position: alignment normal Periorbital: periorbital findings normal Eyelids: eyelids normal Conjunctivae: conjunctivae normal Neck Neck: normal visual inspection Neck mass: No Thyroid: thyroid normal Carotids: no bruits Lymphatic: no lymphadenopathy noted Chest Chest palpation inspection: normal inspection of the chest Resp Effort Inspection: normal respiratory effort, able to speak in complete sentences, symmetric chest movement, no audible wheezes, no cough Auscultation: Bilateral: Clear to Auscultation Cardio Rate: regular rate Rhythm: regular rhythm Pulses: posterior tibial pulses present GI Inspection: normal to inspection Auscultation: normal bowel sounds Palpation: soft, no hepatosplenomegaly Skin General: no rashes or lesions noted Neuro General: alert, awake, oriented x3 Cranial Nerves: CN's II-XI intact bilaterally Cognition: normal cognition Speech: speech normal Gait: normal gait Motor: muscle tone normal throughout Extrem General: no edema Psych Appearance: grossly normal Mental Status: mental status grossly normal Mood: congruent mood Affect: normal affect Speech and Movement: speech and movement normal Attitude: cooperative Thought Process: normal Thought Content: normal Judgment: judgment good Assessment Plan Problems 1. Type 1 diabetes mellitus with hyperglycemia E10.65 2. Presence of insulin pump Z96.41 3. Insulin pump titration Z46.81 Plan Diabetes education provided. Insulin pump management was performed. Insulin pump settings were reviewed with the patient. Settings were adjusted to improve control and to avoid hypoglycemia. Pump upload reviewed in detail. Orders Orders: POC A1C Today E11.9 Medications New: semaglutide (Rybelsus) 14 mg PO DAILY 90 tabs 3RF blood-glucose sensor (Dexcom G6 Sensor) As directed 9 ea 3RF blood-glucose transmitter (Dexcom G6 Transmitter) As directed 1 ea 3RF Refilled: insulin aspart U-100 (Novolog U-100 Insulin aspart) uses up to 130U qd via pump subcut .continuous; 120 mL 3RF MDD 130 units Discontinued: semaglutide (Rybelsus) Discontinued Reason: Order Completed 7 mg PO DAILY 90 tabs 1RF Coding Level of Care Code Off vis,est,level 3 Diagnoses Type 1 diabetes mellitus with hyperglycemia E10.65 ?Diabetes mellitus type: type 1 ?Diabetes mellitus complication status: with hyperglycemia Presence of insulin pump Z96.41 Insulin pump titration Z46.81 02/10/20 1129 <Electronically signed by Landen Evangelista MD> Date Landen Evangelista MD Cosigner Signature: Date (if applicable) CC: Tawanna Fast Start: 10-07-2019 End: 12-12-2019 Virtual Office Visit Comments: See Note; NOTES: [facility] [address] [place] [address] OFFICE VISIT Date of Service: 10/07/19 MR#: [id number] Acct: [id number] Patient: FRANCISCO CRENSHAW Rep #: [id number] : 1975 Provider: Landen Evangelista MD Age/Sex: 44/M Location: [facility] [place] Status: Signed Intake Vital Signs10/07/19 BMI 32.3 Intake Visit Reasons: 3 MONTH F/U Chief Complaint: Diabetes Allergies No Known Allergies Allergy (Verified 08/26/19 09:58) [facility] Social History (Updated 10/07/19 @ 13:[address] Landen Evangelista MD) Smoking Status: Never smoker alcohol intake: current alcohol intake frequency: a few times a month Alcohol type: beer HPI HPI Chief Complaint: Diabetes Details: Patient was informed that this visit will be billed to patient. This visit was conducted during - pandemic. FRANCISCO CRENSHAW, is a 44 M who presents to the telephone today for managment of type 1 diabetes. He is using Tandem pump with control IQ. I review his Dexcom report with him. Average glucose is 147. He is forgetting to bolus at meals. I review his settings with him. He has questions that are answered today. ROS Const Constitutional: No anorexia, body ache, chills, fatigue, fever(s), frequent falls, abnormal sleep pattern or change in appetite Eyes Eyes: No blurry vision ENT ENT: No nasal congestion or sore throat Resp Respiratory: No cough or chest congestion Cardio Cardiology: No chest pain at rest or dyspnea on exertion Gastro GI: No abdominal pain, constipation, diarrhea or nausea/dyspepsia Genitourinary Male: No urinary frequency or urinary urgency Musc Musculoskeletal: No abnormal walking, back pain, decreased muscle mass, body aches, numbness or tingling Skin Skin: No lesions Neuro Neurology: No abnormal walking, unsteady gait/balance, dizziness, frequent falls, lack of coordination, numbness or tingling Psych Psychiatric: No abnormal sleep pattern, No anxiety, No change in appetite, No depression Endo Endocrine: No fatigue, increased thirst/drinking or increased hunger Exam Details: Details:: Exam was limited due to phone visit with no video. Quality Reporting BMI Screening ([facility] 69) Body Mass Index (BMI): 32.3 Tobacco Screening ([facility] 138) Smoking Status: Never smoker Assessment AND Plan Problems 1. Type 1 diabetes mellitus with hyperglycemia E10.65 2. Presence of insulin pump Z96.41 3. Insulin pump titration Z46.81 Plan Diabetes education provided. Insulin pump management was performed. Insulin pump settings were reviewed with the patient. Settings were adjusted to improve control and to avoid hypoglycemia. we changed his I:C and ISF I reviewed his CGM report with him in detail. Medications Refilled: insulin aspart U-100 (Novolog U-100 Insulin a130 units (1.3 mL) subcut .continuous 90 mL 1 spart) 10/07/19 1322 <Electronically signed by Landen Evangelista MD> Date Landen Evangelista MD Cosigner Signature: Date (if applicable) CC: Tawanna Fast DO Tawanna Fast Start: 07-11-2019 End: 07-11-2019 Office Visit Report Comments: See Note; NOTES: [facility] [address] [place] [address] OFFICE VISIT Date of Service: 07/08/19 MR#: [id number] Acct: [id number] Patient: FRANCISCO CRENSHAW Rep #: [id number] : 1975 Provider: Landen Evangelista MD Age/Sex: 43/M Location: [facility] [place] Status: Signed Intake Vital Signs07/08/19 Height 5 ft 8 in 07/08/19 Weight: 213 lb 07/08/19 BP 124/82 H 07/08/19 Blood Pressure Location Lt radial 07/08/19 Position Sitting Intake Visit Reasons: Diabetes Mellitus Type 1 Chief Complaint: Diabetes Is patient in pain?: No PFSH Medical History Diabetes (Acute) High cholesterol (Acute) Family History Other Diabetes High cholesterol Social History (Updated 07/11/19 @ 08:40 by Landen Evangelista MD) Smoking Status: Never smoker alcohol intake: current alcohol intake frequency: a few times a month Alcohol type: beer HPI HPI Chief Complaint: Diabetes Details: FRANCISCO CRENSHAW, is a 43 M who presents to the office today for evaluation and management of diabetes type 1 and hyperlipidemia. He was previously seen by Dr. Muñiz. He is currently using Medtronic 530, but is switching to Tandem/Dexcom with Control IQ. Complications: none A1C today is 8.8% He is not always entering carbs. ROS Const Constitutional: No excessive sweating, fatigue, fever(s), headache(s), malaise, night sweats, weakness, weight change or abnormal sleep pattern Eyes Eyes: No blurry vision ENT ENT: No tinnitus, dizziness/vertigo, headache(s), difficulty swallowing, hoarseness, neck pain or sore throat Resp Respiratory: No cough or shortness of breath Cardio Cardiology: No chest pain at rest, chest pain with exertion, excessive sweating, shortness of breath, dyspnea on exertion, generalized swelling, irregular heart rhythm, lightheadedness, fast heart rate or palpitations Gastro GI: No abdominal pain, change in bowel habits, constipation, diarrhea, heartburn or difficulty swallowing Genitourinary Male: No painful urination, blood in urine or Frequent nighttime urination/ nocturia Musc Musculoskeletal: No joint pain, back pain, joint swelling, muscle cramps, muscle weakness, neck pain, numbness or tingling Skin Skin: No lesions or rash Neuro Neurology: No abnormal speech, behavioral changes, confusion, unsteady gait/balance, dizziness, weakness, headache(s), memory loss, numbness, tingling or fainting Psych Psychiatric: No abnormal sleep pattern, No behavioral changes, No confusion, No depression, No difficulty concentrating, No memory loss, No Thoughts of harming yourself/Others Endo Endocrine: No cold intolerance, excessive sweating, fatigue, flushing, heat intolerance, increased thirst/drinking or increased urination Aller/Imm Allergy/Immunologic: No seasonal allergy symptoms Brayan/Lymp Hematologic/Lymphatic: No easy bleeding, easy bruising or enlarged lymph nodes Exam Const General: cooperative, healthy appearing, comfortable, no acute distress Nutritional Appearance: obese Orientation: alert, awake, oriented x3 HENMT Head: normocephalic, atraumatic Ears: hearing grossly normal bilaterally, external ears normal Nose: external nose normal Face and sinus: normal facial exam Mouth: oral mucosae normal Eyes General: appearance normal, both eyes and all related structures Pupils: PERRL EOM: EOM intact bilaterally Neck Neck: normal visual inspection, no lymphadenopathy Neck mass: No Thyroid: thyroid normal Carotids: no bruits Chest Chest palpation AND inspection: normal inspection of the chest Resp Effort AND Inspection: normal respiratory effort, able to speak in complete sentences Auscultation: Bilateral: Clear to Auscultation Cardio Rate: regular rate Rhythm: regular rhythm Heart Sounds: S1 normal, S2 normal Pulses: posterior tibial pulses present, dorsalis pedis pulses present GI Palpation: soft, no hepatosplenomegaly Musc Musculoskeletal: No muscle weakness Skin General: no erythema Lesions: other (no lipohypertophy) Neuro General: gait normal, CN's II-XI intact bilaterally Cognition: normal cognition Speech: speech normal Gait: normal gait Sensory Exam: lower extremity (vibratory, temperature and light touch intact bilaterally) Extrem General: no edema Psych Appearance: well kempt Mood: congruent mood Affect: normal affect Speech and Movement: speech and movement normal Attitude: cooperative Thought Process: normal Thought Content: normal Assessment AND Plan 1. Type 1 diabetes mellitus with hyperglycemia E10.65 Plan Diabetes education provided. I reviewed with the patient the risk of developing and worsening of diabetes complications including retinopathy, neuropathy, nephropathy, heart attack, stroke, ampuation, and sudden . He states he is ready to get his diabetes under control. We discussed that he has some insulin resistance and his appetite is high. Will start Rybelsus trial to see if this helps improve his blood sugars and appetite. I reviewed adverse affects. 2. Presence of insulin pump Z96.41 Plan Starting Tandem today. Insulin pump management was performed. Insulin pump settings were reviewed with the patient. Settings were adjusted to improve control and to avoid hypoglycemia. 3. Insulin pump titration Z46.81 Plan I entered his pump settings. 4. Mixed hyperlipidemia E78.2 Plan Controlled, please continue current medications. Orders Orders: 5. Class 1 obesity due to excess calories with serious comorbidity and body mass index (BMI) of 32.0 to 32.9 in adult E66.09; Z68.32 Plan Nutritional counseling provided, avoid flour, sugar, and artificial sweeteners. Plan Detail Other Orders Orders: Other Medications New: Coding Level of Care Code Off vis,new,level 5 Diagnoses Type 1 diabetes mellitus with hyperglycemia E10.65 Diabetes mellitus type: type 1 Diabetes mellitus complication status: with hyperglycemia Presence of insulin pump Z96.41 Insulin pump titration Z46.81 Mixed hyperlipidemia E78.2 Class 1 obesity due to excess calories with serious comorbidity and body mass index (BMI) of 32.0 to 32.9 in adult E66.09; Z68.32 Obesity type: due to excess calories Obesity classification: adult class 1 (BMI 30 - 34.9) Serious obesity comorbidity presence: with serious comorbidity Body mass index: BMI 32.0-32.9 07/11/19 0840 <Electronically signed by Landen Evangelista MD> Date Landen Evangelista MD Cosigner Signature: Date (if applicable) CC: Tawanna Hartley Start: 02-13-2017 End: 02-13-2017 Chest PA and Lateral Comments: See Note; NOTES: [facility] Imaging Services [address] [place] [address] Chest PA and Lateral MR#: [id number] Acct: [id number] Name: FRANCISCO CRENSHAW Carol Rep #: [id number] : [id number] M [id number] From: Robbie Workman MD PCP: Tawanna Pickard DO Status: REG CLI Study: Chest PA and Lateral Date of Exam: 02/13/17 Exam# [id number] Ordering Dr: Tawanna Pickard DO STUDY: X-RAY CHEST REASON FOR EXAM: Male, 41 years old. 3 week history of cough and chest congestion. TECHNIQUE: PA and lateral views of the chest. COMPARISON: None. FINDINGS: Mild degree of increased markings in the right infrahilar region as well as in the left lower lobe. This may represent early infiltrates. Radiographic follow-up is recommended. There is no demonstrated pleural abnormality. Normal size heart. Normal mediastinum and jason. Normal visualized pulmonary arteries. Normal visualized aortic arch and descending thoracic aorta. Normal visualized thoracic spine. Normal visualized ribs, clavicles, and shoulders. There is no demonstrated abnormality of the visualized soft tissue structures of the upper abdomen. RAD/Chest PA and Lateral IMPRESSION: Mild degree of increased markings in the right infrahilar region as well as in the left lower lobe. Radiographic follow-up is recommended. Electronically Signed: Robbie Workman MD at 15:48 EDT Tel [phone], Service support , CC: Tawanna Pickard DO Hvac Service Tech: Signed Tawanna Pickard Work Phone: [employer]onsil[employer] Eun Elzbieta k Tonsillectomy Marilee Hairston Tonsillectomy Eun Elzbieta k Tonsillectomy Eun Elzbieta k Tonsillectomy Eun Elzbieta k Tonsillectomy Kathie [place] Tonsillectomy Eun Elzbieta k DIRECTOR TREASURER Tonsillectomy Eun Elzbieta k DIRECTOR TREASURER Tonsillectomy Eun Elzbieta k DIRECTOR TREASURER Tonsillectomy Eun Elzbieta k DIRECTOR TREASURER Tonsillectomy Eun Elzbieta k DIRECTOR TREASURER Plan of Treatment Date Care Activity Detail Author Start: 02-19-2033 Urine microalbumin profile [facility] Start: 03-16-2025 Hepatitis B Vaccine (3 of 3 - Hep B Twinrix 3-dose series) Hepatitis B Vaccine (3 of 3 - Hep B Twinrix 3-dose series) [facility] Start: 03-12-2025 End: 03-12-2025 Patient encounter procedure 03/12/2025 8:00 AM EDT Office Visit Orthopaedics [address] [place] [address] Quintin Shay PA-C [address] [place] [address] 3 month follow up right wrist Orthopaedics Comment on above: 3 month follow up ri ght wrist Start: 03-10-2025 Influenza vaccination Influenz a Vaccine (Season Ended) [facility] Start: 03-10-2024 Covid-19 Vaccine ( season) Covid-19 Vaccine ( season) [facility] Start: 03-14-2023 End: 03-22-2024 CT BRAIN WO IVCON CT BRAIN WO IVCON Radiology Routine Cerebral hemorrhage (HCC) Expected: 03/14/2023, Expires: 03/22/2024 [facility] Work Phone: Comment on above: Expected: 03/14/2023 , Expires: 03/22/2024 Start: 03-10-2023 Influenza vaccination [facility] Start: 10-28-2022 Procedure Education Eprescribe d prescriptions (G8553) [facility]; [facility] Work Phone: Start: 10-28-2022 Hemoglobin glycosyla iqra a1c HGB A1C (37721) [facility]; [facility] Work Phone: Start: 10-28-2022 Lipid panel LIPID PANEL (28318) [facility] Work Phone: Start: 10-28-2022 Blood count complete auto&auto difrntl wbc CBC W/AUTO DIFF WBC (56955) [facility]; [facility] Work Phone: Start: 10-28-2022 Comprehensive metabo lic panel METABOLIC PANEL, COMPREHENSIVE (71349) [facility]; [facility] Work Phone: Start: 2022 COLOGUARD (FIT-DNA) COLOGUARD (FIT-D NA) [facility] Start: 2022 Colonoscopy COLONOSCOPY [facility] Start: 2022 COLORECTAL CANCER SCREENING COLORECTAL CANCER SCREENING [facility] Start: [address] COLONOGRAPHY [facility] Start: 2022 FECAL OCCULT BLOOD FECAL OCCULT BLOO D [facility] Start: 2022 Screening for malign ant neoplasm of colon [facility] Start: 2022 SIGMOIDOSCOPY SIGMOIDOSCOPY [facility] Start: 07-13-2022 Procedure Education Eprescribe d prescriptions (G8553) [facility]; [facility] Work Phone: Start: 07-13-2022 Blood count complete auto&auto difrntl wbc CBC W/AUTO DIFF WBC (78596) [facility]; [facility] Work Phone: Start: 07-13-2022 Comprehensive metabo lic panel METABOLIC PANEL, COMPREHENSIVE (17419) [facility]; [facility] Work Phone: Start: 07-13-2022 Cyanocobalamin vitam in b-12 VITAMIN B12 AND FOLATES (70325) [facility]; [facility] Work Phone: Start: 07-13-2022 Assay of testosteron e free TESTOSTERONE FREE (77369) [facility]; [facility] Work Phone: Start: 07-13-2022 Assay of testosteron e total TESTOSTERONE TOTAL (69575) [facility]; [facility] Work Phone: Start: 07-10-2022 DEPRESSION ASSESSMENT DEPRESSION ASS ESSMENT [facility] Start: 01-14-2022 Procedure Education Eprescribe d prescriptions (G8553) [facility]; [facility] Work Phone: Start: 01-14-2022 25 hydroxy includes fractions if performed Vitamin D Hydroxy (56782) [facility]; [facility] Work Phone: Start: 01-14-2022 Lipid panel LIPID PANEL (63358) [facility]; [facility] Work Phone: Start: 01-14-2022 Blood count complete auto&auto difrntl wbc CBC with auto diff (83345) [facility]; [facility] Work Phone: Start: 01-14-2022 Comprehensive metabo lic panel METABOLIC PANEL, COMPREHENSIVE (13703) [facility]; [facility] Work Phone: Start: 01-14-2022 Hemoglobin glycosyla iqra a1c HGB A1C (13061) [facility]; [facility] Work Phone: Start: 01-14-2022 C-reactive protein h igh sensitivity C-REACT PROT HIGH SENS(hsCRP) (89820) [facility]; [facility] Work Phone: Start: 09-10-2021 Procedure Education Eprescribe d prescriptions (G8553) [facility]; [facility] Work Phone: Start: 09-10-2021 25 hydroxy includes fractions if performed Vitamin D Hydroxy (26993) [facility]; [facility] Work Phone: Start: 09-10-2021 Lipid panel LIPID PANEL (34572) [facility]; [facility] Work Phone: Start: 09-10-2021 Urine albumin quantitative MICROALBUMIN: CREATININE RATIO (85578) AND (16417) [facility]; [facility] Work Phone: Start: 09-10-2021 Blood count complete auto&auto difrntl wbc CBC with auto diff (77840) [facility]; [facility] Work Phone: Start: 09-10-2021 Comprehensive metabo lic panel METABOLIC PANEL, COMPREHENSIVE (61849) [facility]; [facility] Work Phone: Start: 09-10-2021 Hemoglobin glycosyla iqra a1c HGB A1C (66871) [facility]; [facility] Work Phone: Start: 07-23-2021 COVID-19 VACCINE (3 - Pfizer series) COVID-19 VACCINE (3 - Pfizer series) [facility] Start: 05-17-2021 Procedure Education Eprescribe d prescriptions (G8553) [facility]; [facility] Work Phone: Start: 05-17-2021 Comprehensive metabo lic panel METABOLIC PANEL, COMPREHENSIVE (17400) [facility]; [facility] Work Phone: Start: 05-17-2021 Hemoglobin glycosyla iqra a1c HGB A1C (61548) [facility]; [facility] Work Phone: Start: 05-17-2021 C-reactive protein h igh sensitivity C-REACT PROT HIGH SENS(hsCRP) (92124) [facility]; [facility] Work Phone: Start: 05-17-2021 25 hydroxy includes fractions if performed Vitamin D Hydroxy (62637) [facility]; [facility] Work Phone: Start: 05-17-2021 Lipid panel LIPID PANEL (04797) [facility] Work Phone: Start: 03-18-2021 Iaadiadoo influenza 2019 Novel Coronavirus (COVID-19), EDNA (30342) [facility]; [facility] Work Phone: Start: 11-18-2020 Procedure Education Eprescribe d prescriptions (G8553) [facility]; [facility] Work Phone: Start: 11-18-2020 C-reactive protein h igh sensitivity C-REACT PROT HIGH SENS(hsCRP) (53520) [facility]; [facility] Work Phone: Start: 11-18-2020 25 hydroxy includes fractions if performed Vitamin D Hydroxy (15116) [facility]; [facility] Work Phone: Start: 11-18-2020 Lipid panel LIPID PANEL (54114) [facility] Work Phone: Start: 11-18-2020 Blood count complete auto&auto difrntl wbc CBC with auto diff (72803) [facility]; [facility] Work Phone: Start: 11-18-2020 Comprehensive metabo lic panel METABOLIC PANEL, COMPREHENSIVE (35930) [facility]; [facility] Work Phone: Start: 11-18-2020 Hemoglobin glycosyla iqra a1c HGB A1C (07331) [facility]; [facility] Work Phone: Start: 08-04-2020 Skin test tuberculos is intradermal PPD (97184) [facility]; [facility] Work Phone: Comment on above: lot: [id number]: 03/01 site/route: L forearm/transdermalamt: 0.1mLVIS signed when applicableIRISH Haq Start: 07-15-2020 Procedure Education Eprescribe d prescriptions (G8553) [facility]; [facility] Work Phone: Start: 07-15-2020 25 hydroxy includes fractions if performed Vitamin D Hydroxy (00186) [facility]; [facility] Work Phone: Start: 07-15-2020 C-reactive protein h igh sensitivity C-REACT PROT HIGH SENS(hsCRP) (19830) [facility]; [facility] Work Phone: Start: 07-15-2020 Comprehensive metabo lic panel METABOLIC PANEL, COMPREHENSIVE (59798) [facility]; [facility] Work Phone: Start: 07-15-2020 Blood count complete auto&auto difrntl wbc CBC with auto diff (69515) [facility]; [facility] Work Phone: Start: 07-15-2020 Lipid panel LIPID PANEL (50077) [facility]; [facility] Work Phone: Start: 04-07-2020 Procedure Education Eprescribe d prescriptions (G8553) [facility] Work Phone: Start: 04-07-2020 C-reactive protein h igh sensitivity C-REACT PROT HIGH SENS(hsCRP) (61247) [facility] Work Phone: Start: 04-07-2020 Comprehensive metabo lic panel METABOLIC PANEL, COMPREHENSIVE (90672) [facility] Work Phone: Start: 04-07-2020 Lipid panel LIPID PANEL (19415) [facility] Work Phone: Start: 04-07-2020 25 hydroxy includes fractions if performed Vitamin D Hydroxy (29251) [facility] Work Phone: Start: 12-09-2019 Procedure Education Eprescribe d prescriptions (G8553) [facility] Work Phone: Start: 08-14-2019 Hepatic function panel HEPATIC FUNCTION PANEL (39087) [facility] Work Phone: Start: 05-13-2019 Procedure Education Eprescribe d prescriptions (G8553) [facility] Work Phone: Start: 05-13-2019 Urine albumin quantitative MICROALBUMIN: CREATININE RATIO (55924) AND (51183) [facility] Work Phone: Start: 05-13-2019 Comprehensive metabo lic panel METABOLIC PANEL, COMPREHENSIVE (68078) [facility] Work Phone: Start: 05-13-2019 25 hydroxy includes fractions if performed Vitamin D Hydroxy (13604) [facility] Work Phone: Start: 05-13-2019 Lipid panel LIPID PANEL (26325) [facility] Work Phone: Start: 12-07-2018 Procedure Education Eprescribe d prescriptions (G8553) [facility] Work Phone: Start: 12-07-2018 Lipid panel LIPID PANEL (36559) [facility] Work Phone: Start: 12-07-2018 Blood count complete auto&auto difrntl wbc CBC W/AUTO DIFF WBC (44984) [facility] Work Phone: Start: 12-07-2018 Comprehensive metabo lic panel METABOLIC PANEL, COMPREHENSIVE (04647) [facility] Work Phone: Start: 11-07-2018 C-reactive protein h igh sensitivity C-REACT PROT HIGH SENS(hsCRP) (28871) [facility] Work Phone: Start: 11-07-2018 Protein mass conc C-REACT PROT HIGH SENS(hsCRP) (54090) [facility] Work Phone: Start: 11-07-2018 25 hydroxy includes fractions if performed Vitamin D Hydroxy (55392) [facility] Work Phone: Start: 11-07-2018 Comprehensive metabo lic panel METABOLIC PANEL, COMPREHENSIVE (54595) [facility] Work Phone: Start: 11-07-2018 Lipid panel LIPID PANEL (99519) [facility] Work Phone: Start: 09-06-2018 25 hydroxy includes fractions if performed Vitamin D Hydroxy (12748) [facility] Work Phone: Start: 09-06-2018 C-reactive protein h igh sensitivity C-REACT PROT HIGH SENS(hsCRP) (66095) [facility] Work Phone: Start: 09-06-2018 Protein mass conc C-REACT PROT HIGH SENS(hsCRP) (03093) [facility] Work Phone: Start: 09-06-2018 Blood count complete auto&auto difrntl wbc CBC W/AUTO DIFF WBC (50231) [facility] Work Phone: Start: 09-06-2018 Comprehensive metabo lic panel METABOLIC PANEL, COMPREHENSIVE (95055) [facility] Work Phone: Start: 08-27-2018 Procedure Education Eprescribe d prescriptions (G8553) [facility] Work Phone: Start: 08-13-2018 Comprehensive metabo lic panel METABOLIC PANEL, COMPREHENSIVE (57038) [facility] Work Phone: Start: 08-13-2018 Hepatic function panel HEPATIC FUNCTION PANEL (45087) [facility] Work Phone: Start: 08-13-2018 25 hydroxy includes fractions if performed CALCIFEDIOL (87483) [facility] Work Phone: Start: 08-13-2018 Lipid panel LIPID PANEL (16764) [facility] Work Phone: Start: 11-27-2012 Comprehensive metabo lic panel METABOLIC PANEL, COMPREHENSIVE (41670) [facility] Work Phone: Start: 11-27-2012 25 hydroxy includes fractions if performed Vitamin D Hydroxy (23984) [facility] Work Phone: Start: 11-27-2012 Hepatic function panel HEPATIC FUNCTION PANEL (77607) [facility] Work Phone: Start: 11-27-2012 Lipid panel LIPID PANEL (21876) [facility] Work Phone: Start: 11-27-2012 Provider Instruction s for Treatment [facility] Work Phone: Start: 11-27-2012 Hemoglobin A1c/Hemoglobin.total mass fraction (Bld) HgA1C , Office (05075) [facility] Work Phone: Start: 11-27-2012 Hemoglobin glycosyla iqra a1c HgA1C , Office (74981) [facility]; [facility] Work Phone: Start: 10-17-2012 Provider Instruction s for Treatment Follow up in 3 months [facility] Work Phone: Start: 07-19-2012 Comprehensive metabo lic panel Metabolic Panel, Comprehensive (61431) [facility] Work Phone: Comment on above: stat Start: 07-18-2012 Assay of osmolality blood OSMOLALITY BLOOD (24573) [facility] Work Phone: Start: 07-18-2012 Blood count manual c ell count each CBC with manual diff (34379) [facility] Work Phone: Start: 07-18-2012 Comprehensive metabo lic panel Metabolic Panel, Comprehensive (62225) [facility] Work Phone: Start: 06-18-2012 Lipid panel Lipid Panel (43408) [facility] Work Phone: Start: 05-16-2012 Hepatitis a antibody haab HEPATITIS A ANTBDY-IGG/IGM (60448) [facility] Work Phone: Start: 05-16-2012 Antibody varicella-zoster V-ZOSTER IgG (IMMUNITY) 66891 (99778) [facility] Work Phone: Start: 05-16-2012 Hepatitis b surf antibody hbsab HEPATITIS B SURFACE ANTIBODY (01555) [facility] Work Phone: Start: 05-16-2012 Antibody rubeola RUBEOLA ANTIB ADÁN (59359) [facility] Work Phone: Start: 05-16-2012 Antibody rubella RUBELLA ANTIB ADÁN (66163) [facility] Work Phone: Start: 05-16-2012 Antibody mumps MUMPS ANTIBODY (62761 ) [facility] Work Phone: Start: 05-16-2012 Skin test tuberculos is intradermal SKIN TEST INTRADERMAL TB (93058) [facility] Work Phone: Comment on above: 0.1 given lt forearm lot [id number] exp 09/20 Start: 12-27-2011 Hepatitis antibody h aab igm antibody HEPATITIS A ANTIBDY-IGM (84095) [facility] Work Phone: Start: 12-27-2011 Hepatitis a antibody haab HEPATITIS A ANTBDY-IGG/IGM (18665) [facility] Work Phone: Start: 12-27-2011 Antibody varicella-zoster VARICELLA-ZOSTER ANTBODY (11636) [facility] Work Phone: Start: 12-27-2011 Hepatitis b surf antibody hbsab HEPATITIS B SURFACE ANTIBODY (34622) [facility] Work Phone: Start: 12-27-2011 Antibody rubeola RUBEOLA ANTIB ADÁN (61765) [facility] Work Phone: Start: 12-27-2011 Antibody rubella RUBELLA ANTIB ADÁN (20884) [facility] Work Phone: Start: 12-27-2011 Antibody mumps MUMPS ANTIBODY (50616 ) [facility] Work Phone: Start: 12-14-2011 Lipid panel Lipid Panel (08092) [facility] Work Phone: Start: 12-14-2011 Hepatic function panel HEPATIC FUNCTION PANEL (82449) [facility] Work Phone: Start: 12-14-2011 25 hydroxy includes fractions if performed CALCIFEDIOL (58944) [facility] Work Phone: Start: 09-13-2011 Provider Instruction s for Treatment Follow up in 3 months [facility] Work Phone: Start: 08-29-2011 25 hydroxy includes fractions if performed CALCIFEDIOL (14534) [facility] Work Phone: Start: 08-23-2011 Hepatic function panel HEPATIC FUNCTION PANEL (72758) [facility] Work Phone: Start: 08-23-2011 Lipid panel LIPID PANEL (07132) [facility] Work Phone: Start: 1996 Pneumococcal vaccination Pneum ococcal Vaccine (1 of 2 - PCV) [facility] Start: [address] TE[address] [employer] JUDGE BETHANIE DISEASE VISIT ANNUAL PCP TEAM CHRONIC DISEASE VISIT [facility] Start: 1995 Anxiety Screening Anxiety Screening [facility] Start: 1995 Depression Screening Depression Scre ening [facility] Start: 1995 Hepatitis B surface antibody level LDL CHOLESTEROL [facility] Start: 1995 HEPATITIS C SCREENING HEPATITIS C [facility] Start: 1995 Hepatitis C screening Hepatitis C [facility] Start: 1995 HIV SCREENING HIV SCREENING [facility] Start: 1995 HIV screening HIV Screening [facility] Start: 1987 3 comp foot exam completed DIABETIC FOOT EXAM [facility] Start: 1987 Diabetic foot examination Diabetic Foot Exam [facility] Start: 1987 Glaucoma screening Dilated Retinal E xam [facility] Start: 1987 Hepatitis B screening URINE ALBUMIN:CREATININE RATIO [facility] Start: 1987 Hepatitis C antibody , confirmatory test DILATED RETINAL EXAM [facility] Start: 1983 PNEUMOCOCCAL (1 - PCV) PNEUMOCOCCAL (1 - PCV) [facility] Start: 1983 Pneumococcal vaccination Pneum ococcal Vaccine (1 - PCV) [facility] Start: 1982 Hemoglobin A1c measurement HbA1C [facility] Start: 1982 Hemoglobin A1c/Hemoglobin.total in Blood HBA1C [facility] Start: 1977 HEPATITIS B (1 of 3 - 3-dose series) HEPATITIS B (1 of 3 - 3-dose series) [facility] Start: 1977 Hepatitis B Vaccine (1 of 3 - 3-dose series) Hepatitis B Vaccine (1 of 3 - 3-dose series) [facility] CT BRAIN WO IVCON CT BRAIN WO IV CON Radiology Routine Cerebral hemorrhage (HCC) 03/11/2023 8:34 AM EDT [facility] Work Phone: [facility] Work Phone: [facility] Work Phone: [facility] Work Phone: [facility] Work Phone: [facility] Work Phone: [facility] Work Phone: [facility] Work Phone: [facility] Work Phone: [facility] Work Phone: [facility] Work Phone: [facility] Work Phone: [facility] Work Phone: [facility] Work Phone: [facility] Work Phone: [facility] Work Phone: [facility] Immunizations Immunization Date Immunization Notes Care Provider Fa [facility] 02-19-2023 tetanus toxoid, reduced diphtheria toxoid, and acellular pertussis vaccine, adsorbed Joslyn Turcios MD Work Phone: [facility] 03-10-2021 COVID-Pfizer (10 MCG/0.2 ML) Tawanna Fast DO Work Phone: [facility] Work Phone: 03-23-2020 influenza virus vaccine, unspecified formulation Joslyn Turcios MD Work Phone: [facility] Payers Date Payer Category Payer Self-pay [id number] 2014 [employer] Blue [facility] BLUE CARD PPO OOS [id number] 2014 Unknown 2014 Unknown [id number] 2014 Unknown [id number] 1977 Unknown [id number] Unknown [id number] Unknown [id number] Unknown [id number] Unknown [id number] Unknown [id number] Unknown [id number] Unknown [id number] Social History Date Type Detail Facility Alcohol Use: Never smoker [facility] Work Phone: Start: 02-19-2023 End: 02-20-2023 Caffeine Use [facility] Work Phone: Tobacco use: Never smoker. [facility] Work Phone: Alcohol Use: Alcohol Use: [facility] Work Phone: Tobacco use: Tobacco use: [facility] Work Phone: Start: 02-19-2023 End: 04-21-2023 Tobacco smoking status NHIS Never smoked tobacco [facility] Start: 02-19-2023 Tobacco use and exposure Smokeless tobacco non-user [facility] Start: 02-19-2023 End: 03-23-2023 Alcohol intake Current drinker of alcohol (finding) [facility] Start: 02-19-2023 End: 02-20-2023 Tobacco use panel [facility] Adult Depression Screening Assessment 0 [facility] Start: 02-19-2023 Alcohol Comment Occasionally [facility] Start: 1975 Sex Assigned At Not on file [facility] Start: 04-21-2023 Tobacco smoking status NHIS Unknown if ever smoked [facility] Start: 1975 Sex Assigned At Male [facility] Medical Equipment Procedure Code Equipment Code Equipment Origin al Text Equipment Identifier Dates ONETOUCH TEST (I n Vitro Strip) 1 (one) Strip test four times daily for 30 days Quantity: 120 {Strip} Refills: 3 Ordered: 31-Jul-2013 Eun Arrington Start : 31-Jul-2013 End : 13-Aug-2018 Discontinued Comments: This order discontinued per [facility]. Start: 07-31-2013 End: 08-13-2018 Comment on above: This order discontin ued per [facility]. ONETOUCH TEST (I n Vitro Strip) 1 (one) Strip test four times daily for 30 days Quantity: 120 {Strip} Refills: 3 Ordered: 31-Jul-2013 Eun Arrington Start : 31-Jul-2013 End : 13-Aug-2018 Discontinued Comments: This order discontinued per [facility]. Start: 07-31-2013 End: 08-13-2018 Comment on above: This order discontin ued per [facility]. ONETOUCH TEST (I n Vitro Strip) 1 (one) Strip test four times daily for 30 days Quantity: 120 {Strip} Refills: 3 Ordered: 31-Jul-2013 Marilyn Arringtonsea Start : 31-Jul-2013 End : 13-Aug-2018 Discontinued Comments: This order discontinued per [facility]. Start: 07-31-2013 End: 08-13-2018 Comment on above: This order discontin ued per [facility]. ONETOUCH TEST (I n Vitro Strip) 1 (one) Strip test four times daily for 30 days Quantity: 120 {Strip} Refills: 3 Ordered: 31-Jul-2013 Marilyn Arringtonsea Start : 31-Jul-2013 End : 13-Aug-2018 Discontinued Comments: This order discontinued per [facility]. Start: 07-31-2013 End: 08-13-2018 Comment on above: This order discontin ued per [facility]. ONETOUCH TEST (I n Vitro Strip) 1 (one) Strip test four times daily for 30 days Quantity: 120 {Strip} Refills: 3 Ordered: 31-Jul-2013 Eun Arrington Start : 31-Jul-2013 End : 13-Aug-2018 Discontinued Comments: This order discontinued per [facility]. Start: 07-31-2013 End: 08-13-2018 Comment on above: This order discontin ued per [facility]. ONETOUCH TEST (I n Vitro Strip) 1 (one) Strip test four times daily for 30 days Quantity: 120 {Strip} Refills: 3 Ordered: 31-Jul-2013 Eun Arrington CMA Start : 31-Jul-2013 End : 13-Aug-2018 Discontinued Comments: This order discontinued per [facility]. Start: 07-31-2013 End: 08-13-2018 Comment on above: This order discontin ued per [facility]. ONETOUCH TEST (I n Vitro Strip) 1 (one) Strip test four times daily for 30 days Quantity: 120 {Strip} Refills: 3 Ordered: 31-Jul-2013 Marilyn Arrington CMAsea Start : 31-Jul-2013 End : 13-Aug-2018 Discontinued Comments: This order discontinued per [facility]. Start: 07-31-2013 End: 08-13-2018 Comment on above: This order discontin ued per [facility]. ONETOUCH TEST (I n Vitro Strip) 1 (one) Strip test four times daily for 30 days Quantity: 120 {Strip} Refills: 3 Ordered: 31-Jul-2013 Eun Arrington CMA Start : 31-Jul-2013 End : 13-Aug-2018 Discontinued Comments: This order discontinued per [facility]. Start: 07-31-2013 End: 08-13-2018 Comment on above: This order discontin ued per [facility]. ONETOUCH TEST (I n Vitro Strip) 1 (one) Strip test four times daily for 30 days Quantity: 120 {Strip} Refills: 3 Ordered: 31-Jul-2013 Eun Arrington CMA Start : 31-Jul-2013 End : 13-Aug-2018 Discontinued Comments: This order discontinued per [facility]. Start: 07-31-2013 End: 08-13-2018 Comment on above: This order discontin ued per [facility]. ONETOUCH TEST (I n Vitro Strip) 1 (one) Strip test four times daily for 30 days Quantity: 120 {Strip} Refills: 3 Ordered: 31-Jul-2013 Eun Arrington CMA Start : 31-Jul-2013 End : 13-Aug-2018 Discontinued Comments: This order discontinued per [facility]. Start: 07-31-2013 End: 08-13-2018 Comment on above: This order discontin ued per [facility]. ONETOUCH TEST (I n Vitro Strip) 1 (one) Strip test four times daily for 30 days Quantity: 120 {Strip} Refills: 3 Ordered: 31-Jul-2013 Eun Arrington CMA Start : 31-Jul-2013 End : 13-Aug-2018 Discontinued Comments: This order discontinued per [facility]. Start: 07-31-2013 End: 08-13-2018 Comment on above: This order discontin ued per [facility]. ONETOUCH TEST (I n Vitro Strip) 1 (one) Strip test four times daily for 30 days Quantity: 120 {Strip} Refills: 3 Ordered: 31-Jul-2013 Eun Arrington CMA Start : 31-Jul-2013 End : 13-Aug-2018 Discontinued Comments: This order discontinued per [facility]. Start: 07-31-2013 End: 08-13-2018 Comment on above: This order discontin ued per [facility]. ONETOUCH TEST (I n Vitro Strip) 1 (one) Strip test four times daily for 30 days Quantity: 120 {Strip} Refills: 3 Ordered: 31-Jul-2013 Eun Arrington Start : 31-Jul-2013 End : 13-Aug-2018 Discontinued Comments: This order discontinued per [facility]. Start: 07-31-2013 End: 08-13-2018 Comment on above: This order discontin ued per [facility]. ONETOUCH TEST (I n Vitro Strip) 1 (one) Strip test four times daily for 30 days Quantity: 120 {Strip} Refills: 3 Ordered: 31-Jul-2013 Cathryn Arrington CMAa Start : 31-Jul-2013 End : 13-Aug-2018 Discontinued Comments: This order discontinued per [facility]. Start: 07-31-2013 End: 08-13-2018 Comment on above: This order discontin ued per [facility]. ONETOUCH TEST (I n Vitro Strip) 1 (one) Strip test four times daily for 30 days Quantity: 120 {Strip} Refills: 3 Ordered: 31-Jul-2013 Eun Arrnigton CMA Start : 31-Jul-2013 End : 13-Aug-2018 Discontinued Comments: This order discontinued per [facility]. Start: 07-31-2013 End: 08-13-2018 Comment on above: This order discontin ued per [facility]. ONETOUCH TEST (I n Vitro Strip) 1 (one) Strip test four times daily for 30 days Quantity: 120 {Strip} Refills: 3 Ordered: 31-Jul-2013 Eun Arrington CMA Start : 31-Jul-2013 End : 13-Aug-2018 Discontinued Comments: This order discontinued per [facility]. Start: 07-31-2013 End: 08-13-2018 Comment on above: This order discontin ued per [facility]. ONETOUCH TEST (I n Vitro Strip) 1 (one) Strip test four times daily for 30 days Quantity: 120 {Strip} Refills: 3 Ordered: 31-Jul-2013 Cathryn Arrington CMAa Start : 31-Jul-2013 End : 13-Aug-2018 Discontinued Comments: This order discontinued per [facility]. Start: 07-31-2013 End: 08-13-2018 Comment on above: This order discontin ued per [facility]. ONETOUCH TEST (I n Vitro Strip) 1 (one) Strip test four times daily for 30 days Quantity: 120 {Strip} Refills: 3 Ordered: 31-Jul-2013 Eun Arrington Start : 31-Jul-2013 End : 13-Aug-2018 Discontinued Comments: This order discontinued per [facility]. Start: 07-31-2013 End: 08-13-2018 Comment on above: This order discontin ued per [facility]. ONETOUCH TEST (I n Vitro Strip) 1 (one) Strip test four times daily for 30 days Quantity: 120 {Strip} Refills: 3 Ordered: 31-Jul-2013 Marilyn Arringtonsea Start : 31-Jul-2013 End : 13-Aug-2018 Discontinued Comments: This order discontinued per [facility]. Start: 07-31-2013 End: 08-13-2018 Comment on above: This order discontin ued per [facility]. ONETOUCH TEST (I n Vitro Strip) 1 (one) Strip test four times daily for 30 days Quantity: 120 {Strip} Refills: 3 Ordered: 31-Jul-2013 Eun Arrington CMA Start : 31-Jul-2013 End : 13-Aug-2018 Discontinued Comments: This order discontinued per [facility]. Start: 07-31-2013 End: 08-13-2018 Comment on above: This order discontin ued per [facility]. ONETOUCH TEST (I n Vitro Strip) 1 (one) Strip test four times daily for 30 days Quantity: 120 {Strip} Refills: 3 Ordered: 31-Jul-2013 Eun Arrington CMA Start : 31-Jul-2013 End : 13-Aug-2018 Discontinued Comments: This order discontinued per [facility]. Start: 07-31-2013 End: 08-13-2018 Comment on above: This order discontin ued per [facility]. ONETOUCH TEST (I n Vitro Strip) 1 (one) Strip test four times daily for 30 days Quantity: 120 {Strip} Refills: 3 Ordered: 31-Jul-2013 Eun Arrington Start : 31-Jul-2013 End : 13-Aug-2018 Discontinued Comments: This order discontinued per [facility]. Start: 07-31-2013 End: 08-13-2018 Comment on above: This order discontin ued per [facility]. ONETOUCH TEST (I n Vitro Strip) 1 (one) Strip test four times daily for 30 days Quantity: 120 {Strip} Refills: 3 Ordered: 31-Jul-2013 Marilyn Arrington CMAsea Start : 31-Jul-2013 End : 13-Aug-2018 Discontinued Comments: This order discontinued per [facility]. Start: 07-31-2013 End: 08-13-2018 Comment on above: This order discontin ued per [facility]. ONETOUCH TEST (I n Vitro Strip) 1 (one) Strip test four times daily for 30 days Quantity: 120 {Strip} Refills: 3 Ordered: 31-Jul-2013 Marilyn Arrington CMAsea Start : 31-Jul-2013 End : 13-Aug-2018 Discontinued Comments: This order discontinued per [facility]. Start: 07-31-2013 End: 08-13-2018 Comment on above: This order discontin ued per [facility]. ONETOUCH TEST (I n Vitro Strip) 1 (one) Strip test four times daily for 30 days Quantity: 120 {Strip} Refills: 3 Ordered: 31-Jul-2013 Eun Arrington CMA Start : 31-Jul-2013 End : 13-Aug-2018 Discontinued Comments: This order discontinued per [facility]. Start: 07-31-2013 End: 08-13-2018 Comment on above: This order discontin ued per [facility]. ONETOUCH TEST (I n Vitro Strip) 1 (one) Strip test four times daily for 30 days Quantity: 120 {Strip} Refills: 3 Ordered: 31-Jul-2013 Marilyn Arrington CMAsea Start : 31-Jul-2013 End : 13-Aug-2018 Discontinued Comments: This order discontinued per [facility]. Start: 07-31-2013 End: 08-13-2018 Comment on above: This order discontin ued per [facility]. ONETOUCH TEST (I n Vitro Strip) 1 (one) Strip test four times daily for 30 days Quantity: 120 {Strip} Refills: 3 Ordered: 31-Jul-2013 Marilyn Arrington CMAsea Start : 31-Jul-2013 End : 13-Aug-2018 Discontinued Comments: This order discontinued per [facility]. Start: 07-31-2013 End: 08-13-2018 Comment on above: This order discontin ued per [facility]. ONETOUCH TEST (I n Vitro Strip) 1 (one) Strip test four times daily for 30 days Quantity: 120 {Strip} Refills: 3 Ordered: 31-Jul-2013 Eun Arrington CMA Start : 31-Jul-2013 End : 13-Aug-2018 Discontinued Comments: This order discontinued per [facility]. Start: 07-31-2013 End: 08-13-2018 Comment on above: This order discontin ued per [facility]. ONETOUCH TEST (I n Vitro Strip) 1 (one) Strip test four times daily for 30 days Quantity: 120 {Strip} Refills: 3 Ordered: 31-Jul-2013 Eun Arrington CMA Start : 31-Jul-2013 End : 13-Aug-2018 Discontinued Comments: This order discontinued per [facility]. Start: 07-31-2013 End: 08-13-2018 Comment on above: This order discontin ued per [facility]. ONETOUCH TEST (I n Vitro Strip) 1 (one) Strip test four times daily for 30 days Quantity: 120 {Strip} Refills: 3 Ordered: 31-Jul-2013 Eun Arrington CMA Start : 31-Jul-2013 End : 13-Aug-2018 Discontinued Comments: This order discontinued per [facility]. Start: 07-31-2013 End: 08-13-2018 Comment on above: This order discontin ued per [facility]. ONETOUCH TEST (I n Vitro Strip) 1 (one) Strip test four times daily for 30 days Quantity: 120 {Strip} Refills: 3 Ordered: 31-Jul-2013 Eun Arrington CMA Start : 31-Jul-2013 End : 13-Aug-2018 Discontinued Comments: This order discontinued per [facility]. Start: 07-31-2013 End: 08-13-2018 Comment on above: This order discontin ued per [facility]. ONETOUCH TEST (I n Vitro Strip) 1 (one) Strip test four times daily for 30 days Quantity: 120 {Strip} Refills: 3 Ordered: 31-Jul-2013 Eun Arrington CMA Start : 31-Jul-2013 End : 13-Aug-2018 Discontinued Comments: This order discontinued per [facility]. Start: 07-31-2013 End: 08-13-2018 Comment on above: This order discontin ued per [facility]. ONETOUCH TEST (I n Vitro Strip) 1 (one) Strip test four times daily for 30 days Quantity: 120 {Strip} Refills: 3 Ordered: 31-Jul-2013 Eun Arrington CMA Start : 31-Jul-2013 End : 13-Aug-2018 Discontinued Comments: This order discontinued per [facility]. Start: 07-31-2013 End: 08-13-2018 Comment on above: This order discontin ued per [facility]. ONETOUCH TEST (I n Vitro Strip) 1 (one) Strip test four times daily for 30 days Quantity: 120 {Strip} Refills: 3 Ordered: 31-Jul-2013 Eun Arrington CMA Start : 31-Jul-2013 End : 13-Aug-2018 Discontinued Comments: This order discontinued per [facility]. Start: 07-31-2013 End: 08-13-2018 Comment on above: This order discontin ued per [facility]. ONETOUCH TEST (I n Vitro Strip) 1 (one) Strip test four times daily for 30 days Quantity: 120 {Strip} Refills: 3 Ordered: 31-Jul-2013 Eun Arrington CMA Start : 31-Jul-2013 End : 13-Aug-2018 Discontinued Comments: This order discontinued per [facility]. Start: 07-31-2013 End: 08-13-2018 Comment on above: This order discontin ued per [facility]. Functional Status Date Assessment Result Facility 02-20-2023 Are you deaf, or do you have serious difficulty hearing No 02/20/2023 3:00 PM EDT Alyce Castelan RN No [facility] 02-20-2023 Are you blind, or do you have serious difficulty seeing, even when wearing glasses No 02/20/2023 3:00 PM EDT Alyce Castelan RN No [facility] 02-20-2023 Do you have serious difficulty walking or climbing stairs No 02/20/2023 3:00 PM EDT Alyce Castelan RN No [facility] 02-20-2023 Do you have difficul ty dressing or bathing No 02/20/2023 3:00 PM EDT Alyce Castelan RN No [facility] 02-20-2023 Because of a physica l, mental, or emotional condition, do you have difficulty doing errands alone such as visiting a physician's office or shopping No 02/20/2023 3:00 PM EDT Alyce Castelan RN No [facility] Mental Status Date Assessment Result Facility 02-20-2023 Because of a physica l, mental, or emotional condition, do you have serious difficulty concentrating, remembering, or making decisions No 02/20/2023 3:00 PM EDT Alyce Castelan RN No [facility] Clinical Notes 02-20-2023 to 12-06-2024 Quintin Shay PA-C - 12/06/2024 9:47 AM Marilee Kearns MA - 03/23/2023 8:57 AM Joslyn White MD - 03/23/2023 8:45 AM Marilee Kearns MA - 03/02/2023 11:13 AM EDT Note Date & Type Note Facility 12-06-2024 Note HNO ID: [id number] Author: QUINTIN SHAY PA-C Service: ? Author Type: Physician Manager Behavioral Type: Progress Notes Filed: 12/06/2024 09:53 Note Text: New patient referred by self for B/L hand concerns. HPI: Mr. Crenshaw is a right hand dominant 49 year old male who is active with a chief complaint of L>R hand numbness and tingling in the median nerve distribution. The symptoms have been going on for 6+ months. The patient complains of night wakening and increased symptoms with driving. Other complaints include none. Evaluation to date has included None. Treatment to date has included observation. The current symptoms are rated a 2-3/10 and interfere with sleep and use of hands. IDDM and last A1c 07/02 7.8 PAST MEDICAL HISTORY Diagnosis Date Diabetes (HCC) Hypercholesteremia Current Outpatient Medications Medication Sig Dispense Refill levETIRAcetam (KEPPRA) 500 mg tablet Take 1 tablet by mouth twice daily for 14 days. 28 tablet 0 ondansetron (ZOFRAN) 4 mg tablet Take 1 tablet by mouth every 8 hours as needed for nausea/vomiting. 15 tablet 0 DEXCOM G6 SENSOR anat as directed. DEXCOM G6 TRANSMITTER anat as directed. rosuvastatin (CRESTOR) 20 mg tablet NOVOLOG U-100 INSULIN ASPART 100 unit/mL USE UP TO 130 UNITS DAILY SUBCUTANEOUSLY VIA INSULIN PUMP No current facility-administered medications for this visit. ALLERGIES No Known Allergies All medical history, medications and allergies have been discussed with the patient today. ROS: REVIEW OF SYMPTOMS: Constitutional: patient denies any recent fever or significant change in weight Gastrointestinal: patient denies any current abdominal discomfort Musculoskeletal: as noted in the HPI Neurologic: as noted in the HPI SOCIAL HISTORY: Tobacco Use: Never Physical Examination: Mr. Crenshaw is a healthy appearing male in no acute distress. Bilateral upper limbs have equal and intact peripheral pulses. Skin does not demonstrate any rashes or lesions. Cervical spine has full range of motion and no tenderness to palpation, Negative Spurling's on the bilateral side(s). Shoulders and elbows have pain freerange of motion. Positive carpal tunnel compression testing and Phalen testing on the L>R. Inspection reveals no thenar atrophy on the B/L. Intact sensation to light touch in the radial 3 digits. neg Tinel's over the cubital tunnel, ulnar nerve is stable at the elbow with flexion. Negative Tinel's over Guyon's canal. Sensation is equal and intact in the ulnar 2 digits with no intrinsic atrophy/weakness. No tenderness to palpation or masses noted in the forearm. Assessment: Bilateral carpal tunnel syndrome (primary encounter diagnosis). Plan: I discussed with Mr. Crenshaw the diagnosis and different treatment options. We discussed getting an EMG/NCV study and the reasons for the test.. We discussed observation, EMG/NCV, night splinting, cortisone injections and surgical decompression and the risks and benefits of all were clearly outlined. After discussing in detail the patient elects for CSI for left CTS and night bracing B/L. Patient to pay attention to symptoms relief in next 2-4 weeks. If good relief, LCTR may be recommended. Follow up 3 months prn. Additional Injections: L carpal tunnel for carpal tunnel syndrome 12/06/2024 9:52 AM The procedure site was prepped in the usual sterile fashion. Medications: 3 mg betamethasone acetate-betamethasone sodium phosphate 6 mg/mL Anesthetics: 0.5 mL lidocaine (PF) 10 mg/mL (1 %) Outcome: tolerated well, no immediate complications Post-injection instructions were reviewed with the patient and the patient voiced understanding of these instructions. Informed Consent Consent Obtained: Verbal [place] Protocol A moment to CARE was completed. SIGN IN Personnel directly involved with the procedure wore the appropriate PPE. Special Equipment: N/A Patient/Surrogate Stated/Verified: Patient name, Date of , Relevant allergies and Intended procedure TIME OUT No relevant labs, photos, and/or imaging studies were applicable for review. Correct side/site marked and visible. Medications required for procedure verified. No fire risk assessment and interventions applicable. No implant(s) inserted. SIGN OUT All instruments, equipment, possible retained foreign bodies accounted for. Quintin Shay PA-C December 06, 2024 9:47 AM [facility] 12-06-2024 History of Presen t illness Narrative Associated Order(s): Additional Injections: L carpal tunnel Post-Procedure Diagnose(s): Bilateral carpal tunnel syndrome New patient referred by self for B/L hand concerns. HPI: Mr. Crenshaw is a right hand dominant 49 year old male who is active with a chief complaint of L>R hand numbness and tingling in the median nerve distribution. The symptoms have been going on for 6+ months. The patient complains of night wakening and increased symptoms with driving. Other complaints include none. Evaluation to date has included None. Treatment to date has included observation. The current symptoms are rated a 2-3/10 and interfere with sleep and use of hands. IDDM and last A1c 07/02 7.8 PAST MEDICAL HISTORY Diagnosis Date Diabetes (HCC) Hypercholesteremia Current Outpatient Medications Medication Sig Dispense Refill levETIRAcetam (KEPPRA) 500 mg tablet Take 1 tablet by mouth twice daily for 14 days. 28 tablet 0 ondansetron (ZOFRAN) 4 mg tablet Take 1 tablet by mouth every 8 hours as needed for nausea/vomiting. 15 tablet 0 DEXCOM G6 SENSOR anat as directed. DEXCOM G6 TRANSMITTER anat as directed. rosuvastatin (CRESTOR) 20 mg tablet NOVOLOG U-100 INSULIN ASPART 100 unit/mL USE UP TO 130 UNITS DAILY SUBCUTANEOUSLY VIA INSULIN PUMP No current facility-administered medications for this visit. ALLERGIES No Known Allergies All medical history, medications and allergies have been discussed with the patient today. ROS: REVIEW OF SYMPTOMS: Constitutional: patient denies any recent fever or significant change in weight Gastrointestinal: patient denies any current abdominal discomfort Musculoskeletal: as noted in the HPI Neurologic: as noted in the HPI SOCIAL HISTORY: Tobacco Use: Never Physical Examination: Mr. Crenshaw is a healthy appearing male in no acute distress. Bilateral upper limbs have equal and intact peripheral pulses. Skin does not demonstrate any rashes or lesions. Cervical spine has full range of motion and no tenderness to palpation, Negative Spurling's on the bilateral side(s). Shoulders and elbows have pain freerange of motion. Positive carpal tunnel compression testing and Phalen testing on the L>R. Inspection reveals no thenar atrophy on the B/L. Intact sensation to light touch in the radial 3 digits. neg Tinel's over the cubital tunnel, ulnar nerve is stable at the elbow with flexion. Negative Tinel's over Guyon's canal. Sensation is equal and intact in the ulnar 2 digits with no intrinsic atrophy/weakness. No tenderness to palpation or masses noted in the forearm. Assessment: Bilateral carpal tunnel syndrome (primary encounter diagnosis). Plan: I discussed with Mr. Crenshaw the diagnosis and different treatment options. We discussed getting an EMG/NCV study and the reasons for the test.. We discussed observation, EMG/NCV, night splinting, cortisone injections and surgical decompression and the risks and benefits of all were clearly outlined. After discussing in detail the patient elects for CSI for left CTS and night bracing B/L. Patient to pay attention to symptoms relief in next 2-4 weeks. If good relief, LCTR may be recommended. Follow up 3 months prn. Additional Injections: L carpal tunnel for carpal tunnel syndrome 12/06/2024 9:52 AM The procedure site was prepped in the usual sterile fashion. Medications: 3 mg betamethasone acetate-betamethasone sodium phosphate 6 mg/mL Anesthetics: 0.5 mL lidocaine (PF) 10 mg/mL (1 %) Outcome: tolerated well, no immediate complications Post-injection instructions were reviewed with the patient and the patient voiced understanding of these instructions. Informed Consent Consent Obtained: Verbal [place] Protocol A moment to CARE was completed. SIGN IN Personnel directly involved with the procedure wore the appropriate PPE. Special Equipment: N/A Patient/Surrogate Stated/Verified: Patient name, Date of , Relevant allergies and Intended procedure TIME OUT No relevant labs, photos, and/or imaging studies were applicable for review. Correct side/site marked and visible. Medications required for procedure verified. No fire risk assessment and interventions applicable. No implant(s) inserted. SIGN OUT All instruments, equipment, possible retained foreign bodies accounted for. Quintin Shay PA-C December 06, 2024 9:47 AM documented in this encounter [facility] 03-23-2023 Note HNO ID: [id number] Author: Joslyn Turcios MD Service: ? Author Type: Physician Type: Progress Notes Filed: 03/23/2023 9:14 AM Note Text: [facility] Established Patient Consultation No referring provider defined for this encounter. CC: Traumatic brain injury Subjective History of Present Illness: Mr. Crenshaw is a pleasant 47yo gentleman with a history of a ground-level fall hitting his head in a rock. He denies any LOC. He was seen at [facility] ED on 02/19/[address] revealed bifrontal and bitemporal hemorrhagic contusions with trace associated subarachnoid blood and a nondepressed right occipital fracture. He also had an open wound in the occipital region that required aakash. He was moved to the ICU and a 12h later head CT revealed stable findings. He was discharged on 02/20/2023 with recommendations to see us in one month with new head CT. He was also prescribed Keppra for 2 weeks. He returns today with a new head CT. He states that he is doing well. Denies any headaches, nausea, seizures or vomiting. He does complain of occasional vertigo and loss of smell, but both symptoms are improving. Lutsen were removed 2 weeks ago. Therapy Status Data Form Past Medical History: PAST MEDICAL HISTORY Diagnosis Date Diabetes (HCC) Hypercholesteremia Past Surgical History: No past surgical history on file. Family History: No family history on file. Social History Tobacco Use Smoking status: Never Smokeless tobacco: Never Vaping Use Vaping Use: Never used Substance Use Topics Alcohol use: Yes Comment: Occasionally Drug use: Never Allergies: Patient has no known allergies. Current Outpatient Medications Medication Sig levETIRAcetam (KEPPRA) 500 mg tablet Take 1 tablet by mouth twice daily for 14 days. ondansetron (ZOFRAN) 4 mg tablet Take 1 tablet by mouth every 8 hours as needed for nausea/vomiting. DEXCOM G6 SENSOR anat as directed. DEXCOM G6 TRANSMITTER anat as directed. rosuvastatin (CRESTOR) 20 mg tablet NOVOLOG U-100 INSULIN ASPART 100 unit/mL USE UP TO 130 UNITS DAILY SUBCUTANEOUSLY VIA INSULIN PUMP No current facility-administered medications for this visit. Employed: Yes Review of systems: Constitutional: No recent fever or weight loss. Eyes: No history of glaucoma or cataracts. ENMT: No recent ear infection, nasal congestion, mouth sores or sore throat. CV: No history of chest pain, palpitations or leg swelling. Respiratory: No history of SOB, asthma or recent cough. Gastrointestinal: No history of nausea, vomiting, dysphagia or abdominal pain. Genitourinary: No history of hematuria or dysuria. Musculoskeletal: No complaint of arthritis, unstable gait or arm/leg weakness. Psychiatric: No history of hallucinations or depression or anxiety. ROS Neurological: No complaint of headache. No complaint of tinnitus. No complaint of decreased hearing. No complaint of diplopia. No complaints of decreased visual acuity. No complaint of arm/leg numbness. No problem with limb coordination. No complaint of syncope, seizures or disorientation. Objective Physical Exam: There were no vitals taken for this visit. Neurological: Higher integrative functions: Oriented to person, place AND time. Memory: Good recent and remote. Attention Span and Concentration: Good. Language: Accurate naming of objects. Good comprehension. Fund of Knowledge: Good. 2nd CN: Full visual velázquez. 3rd,4th,6th CN: Pupils (=), round, react to light, full extraocular movements. 5th CN: No decrease in facial sensation. 7th CN: Facial muscles symmetric and strong. 8th CN: Hears finger rub well bilaterally. 9th CN: Good gag. 10th CN: Spontaneous palate movement, full and symmetric. 11th CN: Full strength in shoulder shrug. 12th CN: Tongue protrusion full and midline. Sensation: No decrease in sensation in upper or lower limbs to touch. Musculoskeletal: Steady gait. Motor all limbs grade 5. Myotatic reflexes: 2/4 throughout and symmetrical. Babinski reflexes: Absent. Coordination: Rapid alternating movements fast and smooth all limbs. Labs: CBC Latest Ref Rng AND Units 02/19/2023 02/20/2023 WBC 3.70 - 11.00 k/uL 14.33(H) 14.74(H) RBC 4.20 - 6.00 m/uL 4.91 4.90 HEMOGLOBIN 13.0 - 17.0 g/dL 15.3 15.1 HEMATOCRIT 39.0 - 51.0 % 43.1 43.3 MCV 80.0 - 100.0 fL 87.8 88.4 MCH 26.0 - 34.0 pg 31.2 30.8 MCHC 30.5 - 36.0 g/dL 35.5 34.9 RDW-CV 11.5 - 15.0 % 12.5 12.6 PLATELETS 150 - 400 k/uL 278 248 MPV 9.0 - 12.7 fL 10.4 10.4 BASO% % 0.3 - ABS NEUT (ANC) 1.45 - 7.50 k/uL 11.92(H) - ABS LYMPH 1.00 - 4.00 k/uL 1.59 - ABS MONO <0.87 k/uL 0.64 - ABS EOSIN <0.46 k/uL 0.06 - ABS BASO <0.11 k/uL 0.05 - NRBC /100 WBC 0.0 - CMP Latest Ref Rng AND Units 02/19/2023 02/20/2023 SODIUM 136 - 145 mmol/L 138 140 POTASSIUM 3.5 - 5.1 mmol/L - 4.0 CHLORIDE 98 - 107 mmol/L 104 108(H) CO2 21 - 32 mmol/ (more content not included)... [facility] 03-23-2023 Nurse Note 47 y/o male presents to office for a cranial hemorrhage follow up. Reports experiencing vertigo symptoms, but these are resolving. Denies headaches or blurred vision. documented in this encounter [facility] 03-23-2023 History of Presen t illness Narrative Images from the original note were not included. [facility] Established Patient Consultation No referring provider defined for this encounter. CC: Traumatic brain injury Subjective History of Present Illness: Mr. Crenshaw is a pleasant 47yo gentleman with a history of a ground-level fall hitting his head in a rock. He denies any LOC. He was seen at [facility] ED on 02/19/[address] revealed bifrontal and bitemporal hemorrhagic contusions with trace associated subarachnoid blood and a nondepressed right occipital fracture. He also had an open wound in the occipital region that required aakash. He was moved to the ICU and a 12h later head CT revealed stable findings. He was discharged on 02/20/2023 with recommendations to see us in one month with new head CT. He was also prescribed Keppra for 2 weeks. He returns today with a new head CT. He states that he is doing well. Denies any headaches, nausea, seizures or vomiting. He does complain of occasional vertigo and loss of smell, but both symptoms are improving. Aakash were removed 2 weeks ago. Therapy Status Data Form Past Medical History: PAST MEDICAL HISTORY Diagnosis Date Diabetes (HCC) Hypercholesteremia Past Surgical History: No past surgical history on file. Family History: No family history on file. Social History Tobacco Use Smoking status: Never Smokeless tobacco: Never Vaping Use Vaping Use: Never used Substance Use Topics Alcohol use: Yes Comment: Occasionally Drug use: Never Allergies: Patient has no known allergies. Current Outpatient Medications Medication Sig levETIRAcetam (KEPPRA) 500 mg tablet Take 1 tablet by mouth twice daily for 14 days. ondansetron (ZOFRAN) 4 mg tablet Take 1 tablet by mouth every 8 hours as needed for nausea/vomiting. DEXCOM G6 SENSOR anat as directed. DEXCOM G6 TRANSMITTER anat as directed. rosuvastatin (CRESTOR) 20 mg tablet NOVOLOG U-100 INSULIN ASPART 100 unit/mL USE UP TO 130 UNITS DAILY SUBCUTANEOUSLY VIA INSULIN PUMP No current facility-administered medications for this visit. Employed: Yes Review of systems: Constitutional: No recent fever or weight loss. Eyes: No history of glaucoma or cataracts. ENMT: No recent ear infection, nasal congestion, mouth sores or sore throat. CV: No history of chest pain, palpitations or leg swelling. Respiratory: No history of SOB, asthma or recent cough. Gastrointestinal: No history of nausea, vomiting, dysphagia or abdominal pain. Genitourinary: No history of hematuria or dysuria. Musculoskeletal: No complaint of arthritis, unstable gait or arm/leg weakness. Psychiatric: No history of hallucinations or depression or anxiety. ROS Neurological: No complaint of headache. No complaint of tinnitus. No complaint of decreased hearing. No complaint of diplopia. No complaints of decreased visual acuity. No complaint of arm/leg numbness. No problem with limb coordination. No complaint of syncope, seizures or disorientation. Objective Physical Exam: There were no vitals taken for this visit. Neurological: Higher integrative functions: Oriented to person, place & time. Memory: Good recent and remote. Attention Span and Concentration: Good. Language: Accurate naming of objects. Good comprehension. Fund of Knowledge: Good. 2nd CN: Full visual velázquez. 3rd,4th,6th CN: Pupils (=), round, react to light, full extraocular movements. 5th CN: No decrease in facial sensation. 7th CN: Facial muscles symmetric and strong. 8th CN: Hears finger rub well bilaterally. 9th CN: Good gag. 10th CN: Spontaneous palate movement, full and symmetric. 11th CN: Full strength in shoulder shrug. 12th CN: Tongue protrusion full and midline. Sensation: No decrease in sensation in upper or lower limbs to touch. Musculoskeletal: Steady gait. Motor all limbs grade 5. Myotatic reflexes: 2/4 throughout and symmetrical. Babinski reflexes: Absent. Coordination: Rapid alternating movements fast and smooth all limbs. Labs: CBC Latest Ref Rng & Units 02/19/2023 02/20/2023 WBC 3.70 - 11.00 k/uL 14.33(H) 14.74(H) RBC 4.20 - 6.00 m/uL 4.91 4.90 HEMOGLOBIN 13.0 - 17.0 g/dL 15.3 15.1 HEMATOCRIT 39.0 - 51.0 % 43.1 43.3 MCV 80.0 - 100.0 fL 87.8 88.4 MCH 26.0 - 34.0 pg 31.2 30.8 MCHC 30.5 - 36.0 g/dL 35.5 34.9 RDW-CV 11.5 - 15.0 % 12.5 12.6 PLATELETS 150 - 400 k/uL 278 248 MPV 9.0 - 12.7 fL 10.4 10.4 BASO% % 0.3 - ABS NEUT (ANC) 1.45 - 7.50 k/uL 11.92(H) - ABS LYMPH 1.00 - 4.00 k/uL 1.59 - ABS MONO <0.87 k/uL 0.64 - ABS EOSIN <0.46 k/uL 0.06 - ABS BASO <0.11 k/uL 0.05 - NRBC /100 WBC 0.0 - CMP Latest Ref Rng & Units 02/19/2023 02/20/2023 SODIUM 136 - 145 mmol/L 138 140 POTASSIUM 3.5 - 5.1 mmol/L - 4.0 CHLORIDE 98 - 107 mmol/L 104 108(H) CO2 21 - 32 mmol/L 25 24 GLUCOSE 70 - 100 mg/dL 195(H) 164(H) BUN 7 - 26 mg/dL 11 9 CREATININE 0.50 - 1.40 mg/dL 0.80 0.70 EGFR >=60 mL/min/1.73m 111 116 CALCIUM, TOTAL 8.5 - 10.5 mg/dL 9.8 9.3 Imaging: CT Brain Report CT BRAIN WO IVCON Exam End: 03/11/2023 8:34 AM (Final result) Narrative: * * *Final Report* * * DATE OF EXAM: Mar 11 2023 8:34AM [facility] 0504 - CT BRAIN WO IVCON / PROCEDURE REASON: Cerebral hemorrhage (HCC) * * * * Physician Interpretation * * * * EXAMINATION: CT BRAIN WO IVCON CLINICAL HISTORY: Cerebral hemorrhage. TECHNIQUE: Serial axial images without IV contrast were obtained from the vertex to the foramen magnum. MQ: [id number] CT Radiation dose: Integrated Dose-Length Product (DLP) for this visit = 617.94 mGy*cm CT Dose Reduction Employed: [employer] COMPARISON: 02/19/2023. RESULT: Acute change: No evidence of an acute infarct or other acute parenchymal process. Hemorrhage: No current evidence of acute intracranial hemorrhage. Previously noted subarachnoid hemorrhages are no longer seen on current examination. Mass Lesion / Mass Effect: There is no evidence of an intracranial mass or extraaxial fluid collection. No significant mass effect. Chronic change: None apparent. Parenchyma: There is no significant volume loss. The brain parenchyma is otherwise within normal limits for age. Ventricles: The ventricles are within normal limits of size and configuration for age. Paranasal sinuses and skull base: The visualized paranasal sinuses are grossly clear. The skull base and imaged soft tissues are unremarkable. Impression: IMPRESSION: No current evidence of acute intracranial hemorrhage. Previously noted subarachnoid hemorrhages are no longer seen on current examination. No CT evidence of acute intracranial abnormalities. Hvac Service Tech: PSCB Transcribe Date/Time: Mar 14 2023 8:00A Dictated by : KEELEY QUEZADA MD This examination was interpreted and the report reviewed and electronically signed by: KEELEY QUEZADA MD on Mar 14 2023 8:08AM EST Data Review: Personal review of medical records: I reviewed the [facility] chart. Personal review of image, tracing or specimen: Joslyn Turcios MD Assessment & Plan 47yo with TBI after a fall. Had bifrontal contusions with a nondisplaced linear right occipital fracture. He is neurologically stable and has no complains. Treatment Options and Risks: I have discussed the management options and their respective risks and benefits with the patient. He can resume normal activities. We discussed post concussion syndrome and he will contact us if he develops any new symptoms. Recommendations: As above Medicines: No Change Instructions: Continue present activity Physician [id number] time was 20 minutes with > 50% devoted to counseling or co-ordination of care. Approximately 20 minutes were spent reviewing medical records. No resident was available to participate in this visit. I saw and evaluated the patient. Medical Decision Making: Problems: Minimal: Self-limited or minor problem Data: Unique source(s) for external note(s) reviewed: 1 Unique test result(s) reviewed: 2 Unique test(s) ordered: 1 Risk: Minimal: Minimal risk from testing/treatment Medical Decision Making Level: 2 - Straightforward Joslyn Du MD 8:33 AM 03/23/2023 [facility] documented in this encounter [facility] 03-02-2023 Nurse Note 47 y/o male presents to office for staple removal. 7 aakash noted and all removed. Pt tolerated well. No additional concerns. Will have CT completed 03/14 and will RTO for new pt apt with Dr Turcios on 03/21 as scheduled. documented in this encounter [facility] 02-21-2023 Miscellaneous Notes I called Francisco today to have him schedule a follow up appointment from the ER. CT is scheduled for 03/14 at [facility]. Needs to arrive 30 min prior apt. Will also need to schedule a 1 week follow up for CT results in office. Additional, needs to schedule an in office apt on 03/02 for staple removal. Left two voicemails today to call office back. Office number provided. documented in this encounter [facility] 02-20-2023 Note HNO ID: [id number] Author: Maki Tucker RN Service: Care Management Author Type: Registered Nurse Type: Care Mgt Progress Note Filed: 02/20/2023 2:33 PM Note Text: CARE MANAGEMENT DISCHARGE NOTE SERVICE DATE: February 20, 2023 SERVICE TIME: 2:27 PM Admission Date: 02/19/2023 LOS: 0 days Discharge Arrangement home with spouse Services Arranged none needed Caregiver Assessment to assist with needs at home Transportation Arrangements to transport via personal car Additional Information: Patient to be discharged home after brief hospitalization for Intracranial hemorrhage with closed fracture of right side of occipital bone and scalp lac that required closure from fall. Patient is A/Ox3 and denies having any needs on home going and reports his , who is present at bedside, will be his ride home. No needs, CM to sign off. SIGNATURE: Maki Tucker RN PATIENT NAME: Francisco Crenshaw DATE: February 20, 2023 TIME: 2:27 PM CONTACT #: [phone] [facility] 02-20-2023 Note HNO ID: [id number] Author: Bel Sanz MD Service: Pulmonary Disease Author Type: Physician Type: Progress Notes Filed: 02/20/2023 1:11 PM Note Text: PULMONARY/CRITICAL CARE INTENSIVE MEDICAL/SURGICAL CARE UNIT PROGRESS NOTE Patient Name: Francisco Crenshaw Account #: Data Unavailable Admission Date: 02/19/2023 Date of Evaluation: 02/20/2023 Time of Evaluation: 12:59 PM SUBJECTIVE Pt seen and examined at bedside Complains about headache, nausea, photophobia No seizures, no numbness,no vision loss, no speech or motor weakness VITALS 02/20/23 0800 02/20/23 0900 02/20/23 1000 02/20/23 1100 BP: 143/73 131/67 135/72 126/58 Pulse: 85 72 71 66 Resp: 22 18 20 15 Temp: TempSrc: SpO2: 95% 93% 94% 93% Weight: Height: PHYSICAL EXAM Gen: Alert AND Oriented x 3, No acute distress HEENT: Normocephalic, +traumatic, Pupils Equally Reactive to light and accomodation Neck: Supple, no rigidity, trachea is midline, no Lymphadenopathy Lungs: Clear to Auscultation bilaterally , No wheezing, rhonchi or rales Heart: Regular Rate and Rhythm, Normal S1 and S2, no murmurs Abd: Soft, Nontender and nondistended Ext: No edema Neuro: CN II - XII grossly intact 24 hour Intake AND Output: No intake or output data in the 24 hours ending 02/20/23 1259 INPATIENT MEDICATIONS : Current Facility-Administered Medications Medication Dose Route Frequency levETIRAcetam 1,000 mg injection (KEPPRA) 1,000 mg INTRAVENOUS BID dextrose 40 % 15 g 15 g ORAL PRN Or glucagon 1 mg injection 1 mg INTRAMUSCULAR PRN Or dextrose 10% iv bolus 12.5 g INTRAVENOUS PRN ondansetron (PF) 4 mg injection (ZOFRAN) 4 mg INTRAVENOUS q 6 H PRN bacitracin 500 unit/gram topical ointment TOPICAL BID hydrALAZINE 10 mg injection (APRESOLINE) 10 mg INTRAVENOUS q 6 H PRN labetalol 10 mg injection syringe (NORMODYNE) 10 mg INTRAVENOUS q 2 H PRN acetaminophen 325 mg-caffeine 40 mg-butalbital 50 mg 1 tablet (FIORICET) 1 tablet ORAL q 6 H PRN HOME MEDICATIONS: DEXCOM G6 SENSOR devias directed.Disp: Rfl: DEXCOM G6 TRANSMITTER devias directed.Disp: Rfl: rosuvastatin (CRESTOR) 20 mg tabletDisp: Rfl: NOVOLOG U-100 INSULIN ASPART 100 unit/mLUSE UP TO 130 UNITS DAILY SUBCUTANEOUSLY VIA INSULIN PUMPDisp: Rfl: atorvastatin (LIPITOR) 40 mg tabletTake 40 mg by mouth once daily.Disp: Rfl: (Patient not taking: Reported on 02/20/2023) INSULIN ASPART (NOVOLOG SUBCUTANEOUS)Inject subcutaneously. Per sliding scaleDisp: Rfl: (Patient not taking: Reported on 02/19/2023) LABORATORY TESTS: CBC: Recent Labs 02/20/2334702/19/232226 WBC 14.74* 14.33* HB 15.1 15.3 HCT 43.3 43.1 PLT 248 278 MCV 88.4 87.8 RDWCV 12.6 12.5 NEUTP -- 83.2 ABSNEUT -- 11.92* LYMPHP -- 11.1 MONOP -- 4.5 COAG: No results for input(s): APTT, INR in the last 168 hours. BMP: Recent Labs 02/20/2334702/19/232226 GLUC 164* 195* NA 140 138 K 4.0 -- CHLOR 108* 104 CO2 24 25 ANION 8 9 BUN 9 11 CREAT 0.70 0.80 CHEM: Recent Labs 02/20/2334702/19/232226 CA 9.3 9.8 HEPATIC: No results for input(s): ALKPHOS, ALT, AST, TBILI, LIPASE in the last 168 hours. URINALYSIS:No results for input(s): PH, SPGR, UGLUC, UBILI, UKET, UHB, UPROT, UROBIL, UWBC, SSA in the last 168 hours. Invalid input(s): NITR CARDIAC: No results for input(s): CKTEST, CKMB, CKMBP, TROPT, PBNP in the last 168 hours. PROBLEMS: - Traumatic Bifrontal AND Bitemporal Hemorrhagic Contusions s/p Mechanical Fall - Trace Traumatic SAH - Non-depressed Right Occipital Skull Fx - Posterior Scalp Laceration s/p x7 Aakash - Obesity Class I (BMI 30-34.9) - Hx of DM Type-1 - Hx of HLD Active Hospital Problems Diagnosis Intracranial hemorrhage (HCC) Closed fracture of right side of occipital bone (HCC) Scalp laceration Diabetes mellitus type 1, controlled, without complications (HCC) Hyperlipidemia Obesity (BMI 30-39.9) Obesity, Class I, BMI 30-34.9 PLAN: Neuro: mild symptoms related to bleed, no LOC. Will assess gait and swallowing today. Neuro surgery and trauma following. Repeat CT stable. On Prophylactic keppra. No coagulopathy, BP controlled. Cspine cleared by neurosurgery CV: Mechanical fall. No evidence of cardiac symptoms like syncope, SOB, or chest pain. No palpitations Resp: on room air. ID: not currently on ABX. No fever GI: if patient stays in ICU longer than today will need GI Px for TBI while in ICU /electrolytes: Stable. Hematology: leukocytosis probably reactive. No anemia. Normal Hb.candis PLT count. I dont see INR or PTT, but at this point and prachi after documented stability on CT no need for it now MSK: wound laceration, on bacitracin on posterior scalp Endo: DM on insulin pump. Glucose within goal of 140-180 ICU prophylaxis: DVT prophylaxis with early ambulation in setting of TBI. GI prophylaxis with will consider if stays in I (more content not included)... [facility] 02-20-2023 Note HNO ID: [id number] Author: Jv Lucas APRN.CHAPERON Service: Trauma Author Type: Nurse Practitioner Type: Progress Notes Filed: 02/20/2023 9:56 AM Note Text: Attestation signed by Gildardo Horton MD at 02/20/2023 1:51 PM Patient seen with trauma team today. Agree with above JUNIOR ANALYST documentation. Patient to ambulate, and may DC home if can tolerate diet and ambulate OK. May followup outpatient with PCP, [facility], or surgical office for staple removal. Gildardo Horton MD 02/20/2023 1:51 PM Trauma Progress Note SERVICE DATE: 02/20/2023 SUBJECTIVE: Subjective Mechanism of Injury: Fall Hospital day # 0 Patient complains of slight headache. Denies any other injury. Has some nausea. OBJECTIVE: Objective Vitals: Temp (24hrs), Av.9 ?C (98.5 ?F), Min:36.9 ?C (98.4 ?F), Max:36.9 ?C (98.5 ?F) BP 143/73 Pulse 85 Temp (Src) 98.5 (Oral) Resp 22 Ht 5' 7 (1.70m) Wt 212 lb 8.4 oz (96.4kg) SpO2 95% BMI 33.28 kg/(m2). O2 Therapy: Room Air O2 Therapy: Room Air IANDO: MEDICATIONS Current Facility-Administered Medications Medication Dose Route Frequency levETIRAcetam 1,000 mg injection (KEPPRA) 1,000 mg INTRAVENOUS BID dextrose 40 % 15 g 15 g ORAL PRN Or glucagon 1 mg injection 1 mg INTRAMUSCULAR PRN Or dextrose 10% iv bolus 12.5 g INTRAVENOUS PRN acetaminophen 650 mg tab(s) (TYLENOL) 650 mg ORAL QID oxyCODONE IR 5 mg tab(s) (ROXICODONE) 5 mg ORAL q 6 H PRN ondansetron (PF) 4 mg injection (ZOFRAN) 4 mg INTRAVENOUS q 6 H PRN famotidine 20 mg tab(s) (PEPCID) 20 mg ORAL BID AC bacitracin 500 unit/gram topical ointment TOPICAL BID hydrALAZINE 10 mg injection (APRESOLINE) 10 mg INTRAVENOUS q 6 H PRN labetalol 10 mg injection syringe (NORMODYNE) 10 mg INTRAVENOUS q 2 H PRN Labs: No results for input(s): BODSITE, CTYPE, PH, PCO2, PO2, BE, HCO3, CO2CT, O2HB, COHB, MHGB, TEMP, PHTC, PCO2T, PO2T, O2AD in the last 72 hours. Recent Labs 02/20/23 0348 02/19/23 2227 CREAT 0.70 0.80 BUN 9 11 NA 140 138 K 4.0 -- CHLOR 108* 104 CO2 24 25 ANION 8 9 GLUC 164* 195* CA 9.3 9.8 WBC 14.74* 14.33* HB 15.1 15.3 HCT 43.3 43.1 PLT 248 278 PHYSICAL EXAM: Genl: Resting in bed, no distress Neck: Supple Resp: Lungs clear bilaterally. Chest rise is symmetrical and respirations unlabored. Chest without tenderness or crepitus. CVS: RRR. Back: Non-tender GI: Abdomen is soft, non-tender MSK: BRUNO. Extremities without cyanosis or edema. Normal ROM x 4. Skin: Warm and dry. Normal color for ethnicity. Neuro: AANDOx3. Strength and sensation intact. GCS15. Psych: Normal mood. Normal affect. ASSESSMENT AND PLAN: Active Hospital Problems Diagnosis Date Noted Intracranial hemorrhage (HCC) 02/20/2023 Closed fracture of right side of occipital bone (HCC) 02/20/2023 Scalp laceration 02/20/2023 Diabetes mellitus type 1, controlled, without complications (HCC) 02/20/2023 Hyperlipidemia 02/20/2023 Obesity (BMI 30-39.9) 02/20/2023 47 year old male s/p fall with intracranial hemorrhage and closed skull fracture. Neurosurgery has signed off on patient. Repeat imaging shows no worsening and some improvement. We will advance diet. Trauma wrote for corrective insulin. We will start Fioricet and stop scheduled tylenol. We can discontinue oxycodone. Patient will ambulate and likely discharge later today if tolerating diet and movement. Neurosurgery has signed off. Plan of care rounds completed at bedside with trauma team and ICU nursing staff. Imaging performed: CT: Head, Cervical CT: Head-repeat Traumatic Inuries: Intracranial hemorrhage with SAH Nondisplaced skull fracture Operations None Incidental Findings None Care Plan: Advance diet Start corrective insulin Change to Fioricet Ambulate patient Possible discharge today Pain regimen: Multimodal Pathway- will adjust Current diet order: DIET CARBOHYDRATE CONTROLLED Bowel regimen: None D/c daily labs PPX: DVT: SCDs Consulted Services and Recommendations: Neurosurgery- Signed off Critical care Dispo Planning: Possible discharge today if clears ambulation with nursing Follow Up Needs: Plan to possible discharge today Trauma Surgeon: Dr. 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 Schedule [facility] Evaluation note Diagnosis Cerebral hemorrhage (HCC)- Primary Intracerebral hemorrhage documented in this encounter [facility] note* Diagnosis Laceration of scalp, sequela- Primary documented in this encounter [facility] note* Diagnosis Cerebral hemorrhage (HCC) Intracerebral hemorrhage documented in this encounter [facility] note* Diagnosis Traumatic brain injury, without loss of consciousness, subsequent encounter- Primary Closed skull fracture with cerebral contusion with routine healing, subsequent encounter documented in this encounter [facility] note* Diagnosis Onset Date Resolution Status Diabetes mellitus type 1 chr onic Mixed hyperlipidemia chronic Obesity chronic Presence of insulin pump chr onic [facility] Work Phone: Evaluation note* Diagnosis Bilateral carpal tunnel syndrome- Primary Carpal tunnel syndrome documented in this encounter [facility]No assessment [facility]: Instructions* Name Dates Details Patient Instructions Indication:Type 1 diabetes mellitus maturity onset Start:18-Nov-2020 Instruction Type:Provider Instructions for Treatment How to Access Health Informa tion Online using Patient Portal and [employer] Apps Indication:Type 1 diabetes mellitus maturity onset Start:18-Nov-2020 Instruction Type:Patient Education Patient Instructions Indication:Mixed hyperlipidemia Start:15-Jul-2020 Instruction Type:Provider Instructions for Treatment How to Access Health Informa tion Online using Patient Portal and [employer] Apps Indication:Mixed hyperlipidemia Start:15-Jul-2020 Instruction Type:Patient Education How to access health informa tion online Indication:[facility] EXAM Start:07-Apr-2020 Instruction Type:Patient Education How to access health informa tion online - Detail Indication:[facility] EX[facility] Start:07-Apr-2020 Instruction Type:Patient Education Patient Instructions Indication:[facility] EX[facility] Start:07-Apr-2020 Instruction Type:Provider Instructions for Treatment How to access health informa tion online Indication:Mixed hyperlipidemia Start:09-Dec-2019 Instruction Type:Patient Education How to access health informa tion online - Detail Indication:Mixed hyperlipidemia Start:09-Dec-2019 Instruction Type:Patient Education Patient Instructions Indication:Mixed hyperlipidemia Start:09-Dec-2019 Instruction Type:Provider Instructions for Treatment Patient Instructions Indication:Type 1 diabetes mellitus maturity onset Start:16-Aug-2019 Instruction Type:Provider Instructions for Treatment How to access health informa tion online Indication:Type 1 diabetes mellitus maturity onset Start:13-May-2019 Instruction Type:Patient Education How to access health informa tion online - Detail Indication:Type 1 diabetes mellitus maturity onset Start:13-May-2019 Instruction Type:Patient Education Patient Instructions Indication:Type 1 diabetes mellitus maturity onset Start:13-May-2019 Instruction Type:Provider Instructions for Treatment Patient Instructions Indication:Elevated high sensitivity C-reactive protein Start:07-Dec-2018 Instruction Type:Provider Instructions for Treatment How to access health informa tion online Indication:Obstructive sleep apnea, adult Start:07-Dec-2018 Instruction Type:Patient Education How to access health informa tion online - Detail Indication:Obstructive sleep apnea, adult Start:07-Dec-2018 Instruction Type:Patient Education Patient Instructions Indication:Obstructive sleep apnea, adult Start:07-Dec-2018 Instruction Type:Provider Instructions for Treatment Patient Instructions Indication:[facility] exam Start:27-Aug-2018 Instruction Type:Provider Instructions for Treatment How to access health informa tion online Indication:BMI 34.0-34.9,adult Start:27-Aug-2018 Instruction Type:Patient Education How to access health informa tion online - Detail Indication:BMI 34.0-34.9,adult Start:27-Aug-2018 Instruction Type:Patient Education Patient Instructions Indication:BMI 34.0-34.9,adult Start:27-Aug-2018 Instruction Type:Provider Instructions for Treatment Patient Instructions Indication:Diabetes mellitus Start:27-Nov-2012 Instruction Type:Provider Instructions for Treatment Patient Instructions Indication:Diabetes mellitus Start:18-Jul-2012 Instruction Type:Provider Instructions for Treatment [facility] Work Phone: Instructions* Name Dates Details Patient Instructions Indication:[facility] EX[facility] Start:17-May-2021 Instruction Type:Provider Instructions for Treatment How to Access Health Informa tion Online using Patient Portal and [employer] Apps Indication:[facility] EX[facility] Start:17-May-2021 Instruction Type:Patient Education Patient Instructions Indication:Type 1 diabetes mellitus maturity onset Start:18-Nov-2020 Instruction Type:Provider Instructions for Treatment How to Access Health Informa tion Online using Patient Portal and [employer] Apps Indication:Type 1 diabetes mellitus maturity onset Start:18-Nov-2020 Instruction Type:Patient Education Patient Instructions Indication:Mixed hyperlipidemia Start:15-Jul-2020 Instruction Type:Provider Instructions for Treatment How to Access Health Informa tion Online using Patient Portal and [employer] Apps Indication:Mixed hyperlipidemia Start:15-Jul-2020 Instruction Type:Patient Education How to access health informa tion online Indication:[facility] EX[facility] Start:07-Apr-2020 Instruction Type:Patient Education How to access health informa tion online - Detail Indication:[facility] EX[facility] Start:07-Apr-2020 Instruction Type:Patient Education Patient Instructions Indication:[facility] EX[facility] Start:07-Apr-2020 Instruction Type:Provider Instructions for Treatment How to access health informa tion online Indication:Mixed hyperlipidemia Start:09-Dec-2019 Instruction Type:Patient Education How to access health informa tion online - Detail Indication:Mixed hyperlipidemia Start:09-Dec-2019 Instruction Type:Patient Education Patient Instructions Indication:Mixed hyperlipidemia Start:09-Dec-2019 Instruction Type:Provider Instructions for Treatment Patient Instructions Indication:Type 1 diabetes mellitus maturity onset Start:16-Aug-2019 Instruction Type:Provider Instructions for Treatment How to access health informa tion online Indication:Type 1 diabetes mellitus maturity onset Start:13-May-2019 Instruction Type:Patient Education How to access health informa tion online - Detail Indication:Type 1 diabetes mellitus maturity onset Start:13-May-2019 Instruction Type:Patient Education Patient Instructions Indication:Type 1 diabetes mellitus maturity onset Start:13-May-2019 Instruction Type:Provider Instructions for Treatment Patient Instructions Indication:Elevated high sensitivity C-reactive protein Start:07-Dec-2018 Instruction Type:Provider Instructions for Treatment How to access health informa tion online Indication:Obstructive sleep apnea, adult Start:07-Dec-2018 Instruction Type:Patient Education How to access health informa tion online - Detail Indication:Obstructive sleep apnea, adult Start:07-Dec-2018 Instruction Type:Patient Education Patient Instructions Indication:Obstructive sleep apnea, adult Start:07-Dec-2018 Instruction Type:Provider Instructions for Treatment Patient Instructions Indication:[facility] Start:27-Aug-2018 Instruction Type:Provider Instructions for Treatment How to access health informa tion online Indication:BMI 34.0-34.9,adult Start:27-Aug-2018 Instruction Type:Patient Education How to access health informa tion online - Detail Indication:BMI 34.0-34.9,adult Start:27-Aug-2018 Instruction Type:Patient Education Patient Instructions Indication:BMI 34.0-34.9,adult Start:27-Aug-2018 Instruction Type:Provider Instructions for Treatment Patient Instructions Indication:Diabetes mellitus Start:27-Nov-2012 Instruction Type:Provider Instructions for Treatment Patient Instructions Indication:Diabetes mellitus Start:18-Jul-2012 Instruction Type:Provider Instructions for Treatment [facility] Work Phone: Instructions* Name Dates Details Patient Instructions Indication:[facility] EX[facility] Start:17-May-2021 Instruction Type:Provider Instructions for Treatment How to Access Health Informa tion Online using Patient Portal and [employer] Apps Indication:[facility] EX[facility] Start:17-May-2021 Instruction Type:Patient Education Patient Instructions Indication:Type 1 diabetes mellitus maturity onset Start:18-Nov-2020 Instruction Type:Provider Instructions for Treatment How to Access Health Informa tion Online using Patient Portal and [employer] Apps Indication:Type 1 diabetes mellitus maturity onset Start:18-Nov-2020 Instruction Type:Patient Education Patient Instructions Indication:Mixed hyperlipidemia Start:15-Jul-2020 Instruction Type:Provider Instructions for Treatment How to Access Health Informa tion Online using Patient Portal and [employer] Apps Indication:Mixed hyperlipidemia Start:15-Jul-2020 Instruction Type:Patient Education How to access health informa tion online Indication:[facility] EX[facility] Start:07-Apr-2020 Instruction Type:Patient Education How to access health informa tion online - Detail Indication:[facility] EX[facility] Start:07-Apr-2020 Instruction Type:Patient Education Patient Instructions Indication:[facility] EX[facility] Start:07-Apr-2020 Instruction Type:Provider Instructions for Treatment How to access health informa tion online Indication:Mixed hyperlipidemia Start:09-Dec-2019 Instruction Type:Patient Education How to access health informa tion online - Detail Indication:Mixed hyperlipidemia Start:09-Dec-2019 Instruction Type:Patient Education Patient Instructions Indication:Mixed hyperlipidemia Start:09-Dec-2019 Instruction Type:Provider Instructions for Treatment Patient Instructions Indication:Type 1 diabetes mellitus maturity onset Start:16-Aug-2019 Instruction Type:Provider Instructions for Treatment How to access health informa tion online Indication:Type 1 diabetes mellitus maturity onset Start:13-May-2019 Instruction Type:Patient Education How to access health informa tion online - Detail Indication:Type 1 diabetes mellitus maturity onset Start:13-May-2019 Instruction Type:Patient Education Patient Instructions Indication:Type 1 diabetes mellitus maturity onset Start:13-May-2019 Instruction Type:Provider Instructions for Treatment Patient Instructions Indication:Elevated high sensitivity C-reactive protein Start:07-Dec-2018 Instruction Type:Provider Instructions for Treatment How to access health informa tion online Indication:Obstructive sleep apnea, adult Start:07-Dec-2018 Instruction Type:Patient Education How to access health informa tion online - Detail Indication:Obstructive sleep apnea, adult Start:07-Dec-2018 Instruction Type:Patient Education Patient Instructions Indication:Obstructive sleep apnea, adult Start:07-Dec-2018 Instruction Type:Provider Instructions for Treatment Patient Instructions Indication:[facility] Start:27-Aug-2018 Instruction Type:Provider Instructions for Treatment How to access health informa tion online Indication:BMI 34.0-34.9,adult Start:27-Aug-2018 Instruction Type:Patient Education How to access health informa tion online - Detail Indication:BMI 34.0-34.9,adult Start:27-Aug-2018 Instruction Type:Patient Education Patient Instructions Indication:BMI 34.0-34.9,adult Start:27-Aug-2018 Instruction Type:Provider Instructions for Treatment Patient Instructions Indication:Diabetes mellitus Start:27-Nov-2012 Instruction Type:Provider Instructions for Treatment Patient Instructions Indication:Diabetes mellitus Start:18-Jul-2012 Instruction Type:Provider Instructions for Treatment [facility] Work Phone: Instructions* Name Dates Details Patient Instructions Indication:Type 1 diabetes mellitus maturity onset Start:10-Sep-2021 Instruction Type:Provider Instructions for Treatment How to Access Health Informa tion Online using Patient Portal and [employer] Apps Indication:Type 1 diabetes mellitus maturity onset Start:10-Sep-2021 Instruction Type:Patient Education Patient Instructions Indication:[facility] EX[facility] Start:17-May-2021 Instruction Type:Provider Instructions for Treatment How to Access Health Informa tion Online using Patient Portal and [employer] Apps Indication:[facility] EXAM Start:17-May-2021 Instruction Type:Patient Education Patient Instructions Indication:Type 1 diabetes mellitus maturity onset Start:18-Nov-2020 Instruction Type:Provider Instructions for Treatment How to Access Health Informa tion Online using Patient Portal and [employer] Apps Indication:Type 1 diabetes mellitus maturity onset Start:18-Nov-2020 Instruction Type:Patient Education Patient Instructions Indication:Mixed hyperlipidemia Start:15-Jul-2020 Instruction Type:Provider Instructions for Treatment How to Access Health Informa tion Online using Patient Portal and [employer] Apps Indication:Mixed hyperlipidemia Start:15-Jul-2020 Instruction Type:Patient Education How to access health informa tion online Indication:[facility] EX[facility] Start:07-Apr-2020 Instruction Type:Patient Education How to access health informa tion online - Detail Indication:[facility] EX[facility] Start:07-Apr-2020 Instruction Type:Patient Education Patient Instructions Indication:[facility] EX[facility] Start:07-Apr-2020 Instruction Type:Provider Instructions for Treatment How to access health informa tion online Indication:Mixed hyperlipidemia Start:09-Dec-2019 Instruction Type:Patient Education How to access health informa tion online - Detail Indication:Mixed hyperlipidemia Start:09-Dec-2019 Instruction Type:Patient Education Patient Instructions Indication:Mixed hyperlipidemia Start:09-Dec-2019 Instruction Type:Provider Instructions for Treatment Patient Instructions Indication:Type 1 diabetes mellitus maturity onset Start:16-Aug-2019 Instruction Type:Provider Instructions for Treatment How to access health informa tion online Indication:Type 1 diabetes mellitus maturity onset Start:13-May-2019 Instruction Type:Patient Education How to access health informa tion online - Detail Indication:Type 1 diabetes mellitus maturity onset Start:13-May-2019 Instruction Type:Patient Education Patient Instructions Indication:Type 1 diabetes mellitus maturity onset Start:13-May-2019 Instruction Type:Provider Instructions for Treatment Patient Instructions Indication:Elevated high sensitivity C-reactive protein Start:07-Dec-2018 Instruction Type:Provider Instructions for Treatment How to access health informa tion online Indication:Obstructive sleep apnea, adult Start:07-Dec-2018 Instruction Type:Patient Education How to access health informa tion online - Detail Indication:Obstructive sleep apnea, adult Start:07-Dec-2018 Instruction Type:Patient Education Patient Instructions Indication:Obstructive sleep apnea, adult Start:07-Dec-2018 Instruction Type:Provider Instructions for Treatment Patient Instructions Indication:[facility] exam Start:27-Aug-2018 Instruction Type:Provider Instructions for Treatment How to access health informa tion online Indication:BMI 34.0-34.9,adult Start:27-Aug-2018 Instruction Type:Patient Education How to access health informa tion online - Detail Indication:BMI 34.0-34.9,adult Start:27-Aug-2018 Instruction Type:Patient Education Patient Instructions Indication:BMI 34.0-34.9,adult Start:27-Aug-2018 Instruction Type:Provider Instructions for Treatment Patient Instructions Indication:Diabetes mellitus Start:27-Nov-2012 Instruction Type:Provider Instructions for Treatment Patient Instructions Indication:Diabetes mellitus Start:18-Jul-2012 Instruction Type:Provider Instructions for Treatment [facility] Work Phone: Instructions* Name Dates Details Patient Instructions Indication:Type 1 diabetes mellitus maturity onset Start:10-Sep-2021 Instruction Type:Provider Instructions for Treatment How to Access Health Informa tion Online using Patient Portal and [employer] Apps Indication:Type 1 diabetes mellitus maturity onset Start:10-Sep-2021 Instruction Type:Patient Education Patient Instructions Indication:[facility] EX[facility] Start:17-May-2021 Instruction Type:Provider Instructions for Treatment How to Access Health Informa tion Online using Patient Portal and [employer] Apps Indication:[facility] EXAM Start:17-May-2021 Instruction Type:Patient Education Patient Instructions Indication:Type 1 diabetes mellitus maturity onset Start:18-Nov-2020 Instruction Type:Provider Instructions for Treatment How to Access Health Informa tion Online using Patient Portal and [employer] Apps Indication:Type 1 diabetes mellitus maturity onset Start:18-Nov-2020 Instruction Type:Patient Education Patient Instructions Indication:Mixed hyperlipidemia Start:15-Jul-2020 Instruction Type:Provider Instructions for Treatment How to Access Health Informa tion Online using Patient Portal and [employer] Apps Indication:Mixed hyperlipidemia Start:15-Jul-2020 Instruction Type:Patient Education How to access health informa tion online Indication:[facility] EX[facility] Start:07-Apr-2020 Instruction Type:Patient Education How to access health informa tion online - Detail Indication:[facility] EX[facility] Start:07-Apr-2020 Instruction Type:Patient Education Patient Instructions Indication:[facility] EX[facility] Start:07-Apr-2020 Instruction Type:Provider Instructions for Treatment How to access health informa tion online Indication:Mixed hyperlipidemia Start:09-Dec-2019 Instruction Type:Patient Education How to access health informa tion online - Detail Indication:Mixed hyperlipidemia Start:09-Dec-2019 Instruction Type:Patient Education Patient Instructions Indication:Mixed hyperlipidemia Start:09-Dec-2019 Instruction Type:Provider Instructions for Treatment Patient Instructions Indication:Type 1 diabetes mellitus maturity onset Start:16-Aug-2019 Instruction Type:Provider Instructions for Treatment How to access health informa tion online Indication:Type 1 diabetes mellitus maturity onset Start:13-May-2019 Instruction Type:Patient Education How to access health informa tion online - Detail Indication:Type 1 diabetes mellitus maturity onset Start:13-May-2019 Instruction Type:Patient Education Patient Instructions Indication:Type 1 diabetes mellitus maturity onset Start:13-May-2019 Instruction Type:Provider Instructions for Treatment Patient Instructions Indication:Elevated high sensitivity C-reactive protein Start:07-Dec-2018 Instruction Type:Provider Instructions for Treatment How to access health informa tion online Indication:Obstructive sleep apnea, adult Start:07-Dec-2018 Instruction Type:Patient Education How to access health informa tion online - Detail Indication:Obstructive sleep apnea, adult Start:07-Dec-2018 Instruction Type:Patient Education Patient Instructions Indication:Obstructive sleep apnea, adult Start:07-Dec-2018 Instruction Type:Provider Instructions for Treatment Patient Instructions Indication:[facility] Start:27-Aug-2018 Instruction Type:Provider Instructions for Treatment How to access health informa tion online Indication:BMI 34.0-34.9,adult Start:27-Aug-2018 Instruction Type:Patient Education How to access health informa tion online - Detail Indication:BMI 34.0-34.9,adult Start:27-Aug-2018 Instruction Type:Patient Education Patient Instructions Indication:BMI 34.0-34.9,adult Start:27-Aug-2018 Instruction Type:Provider Instructions for Treatment Patient Instructions Indication:Diabetes mellitus Start:27-Nov-2012 Instruction Type:Provider Instructions for Treatment Patient Instructions Indication:Diabetes mellitus Start:18-Jul-2012 Instruction Type:Provider Instructions for Treatment [facility]; [facility] Work Phone: Instructions* Name Dates Details Patient Instructions Indication:BMI 33.0-33.9,adult Start:14-Jan-2022 Instruction Type:Provider Instructions for Treatment How to Access Health Informa tion Online using Patient Portal and [employer] Apps Indication:BMI 33.0-33.9,adult Start:14-Jan-2022 Instruction Type:Patient Education Patient Instructions Indication:Type 1 diabetes mellitus maturity onset Start:10-Sep-2021 Instruction Type:Provider Instructions for Treatment How to Access Health Informa tion Online using Patient Portal and [employer] Apps Indication:Type 1 diabetes mellitus maturity onset Start:10-Sep-2021 Instruction Type:Patient Education Patient Instructions Indication:[facility] EX[facility] Start:17-May-2021 Instruction Type:Provider Instructions for Treatment How to Access Health Informa tion Online using Patient Portal and [employer] Apps Indication:[facility] EXAM Start:17-May-2021 Instruction Type:Patient Education Patient Instructions Indication:Type 1 diabetes mellitus maturity onset Start:18-Nov-2020 Instruction Type:Provider Instructions for Treatment How to Access Health Informa tion Online using Patient Portal and [employer] Apps Indication:Type 1 diabetes mellitus maturity onset Start:18-Nov-2020 Instruction Type:Patient Education Patient Instructions Indication:Mixed hyperlipidemia Start:15-Jul-2020 Instruction Type:Provider Instructions for Treatment How to Access Health Informa tion Online using Patient Portal and [employer] Apps Indication:Mixed hyperlipidemia Start:15-Jul-2020 Instruction Type:Patient Education How to access health informa tion online Indication:[facility] EXAM Start:07-Apr-2020 Instruction Type:Patient Education How to access health informa tion online - Detail Indication:[facility] EX[facility] Start:07-Apr-2020 Instruction Type:Patient Education Patient Instructions Indication:[facility] EXAM Start:07-Apr-2020 Instruction Type:Provider Instructions for Treatment How to access health informa tion online Indication:Mixed hyperlipidemia Start:09-Dec-2019 Instruction Type:Patient Education How to access health informa tion online - Detail Indication:Mixed hyperlipidemia Start:09-Dec-2019 Instruction Type:Patient Education Patient Instructions Indication:Mixed hyperlipidemia Start:09-Dec-2019 Instruction Type:Provider Instructions for Treatment Patient Instructions Indication:Type 1 diabetes mellitus maturity onset Start:16-Aug-2019 Instruction Type:Provider Instructions for Treatment How to access health informa tion online Indication:Type 1 diabetes mellitus maturity onset Start:13-May-2019 Instruction Type:Patient Education How to access health informa tion online - Detail Indication:Type 1 diabetes mellitus maturity onset Start:13-May-2019 Instruction Type:Patient Education Patient Instructions Indication:Type 1 diabetes mellitus maturity onset Start:13-May-2019 Instruction Type:Provider Instructions for Treatment Patient Instructions Indication:Elevated high sensitivity C-reactive protein Start:07-Dec-2018 Instruction Type:Provider Instructions for Treatment How to access health informa tion online Indication:Obstructive sleep apnea, adult Start:07-Dec-2018 Instruction Type:Patient Education How to access health informa tion online - Detail Indication:Obstructive sleep apnea, adult Start:07-Dec-2018 Instruction Type:Patient Education Patient Instructions Indication:Obstructive sleep apnea, adult Start:07-Dec-2018 Instruction Type:Provider Instructions for Treatment Patient Instructions Indication:[facility] exam Start:27-Aug-2018 Instruction Type:Provider Instructions for Treatment How to access health informa tion online Indication:BMI 34.0-34.9,adult Start:27-Aug-2018 Instruction Type:Patient Education How to access health informa tion online - Detail Indication:BMI 34.0-34.9,adult Start:27-Aug-2018 Instruction Type:Patient Education Patient Instructions Indication:BMI 34.0-34.9,adult Start:27-Aug-2018 Instruction Type:Provider Instructions for Treatment Patient Instructions Indication:Diabetes mellitus Start:27-Nov-2012 Instruction Type:Provider Instructions for Treatment Patient Instructions Indication:Diabetes mellitus Start:18-Jul-2012 Instruction Type:Provider Instructions for Treatment [facility]; [facility] Work Phone: Instructions* Name Dates Details Patient Instructions Indication:BMI 33.0-33.9,adult Start:14-Jan-2022 Instruction Type:Provider Instructions for Treatment How to Access Health Informa tion Online using Patient Portal and [employer]rd [employer] Apps Indication:BMI 33.0-33.9,adult Start:14-Jan-2022 Instruction Type:Patient Education Patient Instructions Indication:Type 1 diabetes mellitus maturity onset Start:10-Sep-2021 Instruction Type:Provider Instructions for Treatment How to Access Health Informa tion Online using Patient Portal and [employer]rd [employer] Apps Indication:Type 1 diabetes mellitus maturity onset Start:10-Sep-2021 Instruction Type:Patient Education Patient Instructions Indication:[facility] Start:17-May-2021 Instruction Type:Provider Instructions for Treatment How to Access Health Informa tion Online using Patient Portal and [employer]rd [employer] Apps Indication:[facility] EX[facility] Start:17-May-2021 Instruction Type:Patient Education Patient Instructions Indication:Type 1 diabetes mellitus maturity onset Start:18-Nov-2020 Instruction Type:Provider Instructions for Treatment How to Access Health Informa tion Online using Patient Portal and [employer]rd [employer] Apps Indication:Type 1 diabetes mellitus maturity onset Start:18-Nov-2020 Instruction Type:Patient Education Patient Instructions Indication:Mixed hyperlipidemia Start:15-Jul-2020 Instruction Type:Provider Instructions for Treatment How to Access Health Informa tion Online using Patient Portal and [employer]rd [employer] Apps Indication:Mixed hyperlipidemia Start:15-Jul-2020 Instruction Type:Patient Education How to access health informa tion online Indication:[facility] Start:07-Apr-2020 Instruction Type:Patient Education How to access health informa tion online - Detail Indication:[facility] Start:07-Apr-2020 Instruction Type:Patient Education Patient Instructions Indication:[facility] Start:07-Apr-2020 Instruction Type:Provider Instructions for Treatment How to access health informa tion online Indication:Mixed hyperlipidemia Start:09-Dec-2019 Instruction Type:Patient Education How to access health informa tion online - Detail Indication:Mixed hyperlipidemia Start:09-Dec-2019 Instruction Type:Patient Education Patient Instructions Indication:Mixed hyperlipidemia Start:09-Dec-2019 Instruction Type:Provider Instructions for Treatment Patient Instructions Indication:Type 1 diabetes mellitus maturity onset Start:16-Aug-2019 Instruction Type:Provider Instructions for Treatment How to access health informa tion online Indication:Type 1 diabetes mellitus maturity onset Start:13-May-2019 Instruction Type:Patient Education How to access health informa tion online - Detail Indication:Type 1 diabetes mellitus maturity onset Start:13-May-2019 Instruction Type:Patient Education Patient Instructions Indication:Type 1 diabetes mellitus maturity onset Start:13-May-2019 Instruction Type:Provider Instructions for Treatment Patient Instructions Indication:Elevated high sensitivity C-reactive protein Start:07-Dec-2018 Instruction Type:Provider Instructions for Treatment How to access health informa tion online Indication:Obstructive sleep apnea, adult Start:07-Dec-2018 Instruction Type:Patient Education How to access health informa tion online - Detail Indication:Obstructive sleep apnea, adult Start:07-Dec-2018 Instruction Type:Patient Education Patient Instructions Indication:Obstructive sleep apnea, adult Start:07-Dec-2018 Instruction Type:Provider Instructions for Treatment Patient Instructions Indication:[facility] exam Start:27-Aug-2018 Instruction Type:Provider Instructions for Treatment How to access health informa tion online Indication:BMI 34.0-34.9,adult Start:27-Aug-2018 Instruction Type:Patient Education How to access health informa tion online - Detail Indication:BMI 34.0-34.9,adult Start:27-Aug-2018 Instruction Type:Patient Education Patient Instructions Indication:BMI 34.0-34.9,adult Start:27-Aug-2018 Instruction Type:Provider Instructions for Treatment Patient Instructions Indication:Diabetes mellitus Start:27-Nov-2012 Instruction Type:Provider Instructions for Treatment Patient Instructions Indication:Diabetes mellitus Start:18-Jul-2012 Instruction Type:Provider Instructions for Treatment [facility]; [facility] Work Phone: Instructions* Name Dates Details Patient Instructions Indication:Type 1 diabetes mellitus maturity onset Start:13-Jul-2022 Instruction Type:Provider Instructions for Treatment How to Access Health Informa tion Online using Patient Portal and [employer]rd [employer] Apps Indication:Type 1 diabetes mellitus maturity onset Start:13-Jul-2022 Instruction Type:Patient Education Patient Instructions Indication:BMI 33.0-33.9,adult Start:14-Jan-2022 Instruction Type:Provider Instructions for Treatment How to Access Health Informa tion Online using Patient Portal and [employer]rd [employer] Apps Indication:BMI 33.0-33.9,adult Start:14-Jan-2022 Instruction Type:Patient Education Patient Instructions Indication:Type 1 diabetes mellitus maturity onset Start:10-Sep-2021 Instruction Type:Provider Instructions for Treatment How to Access Health Informa tion Online using Patient Portal and [employer] Apps Indication:Type 1 diabetes mellitus maturity onset Start:10-Sep-2021 Instruction Type:Patient Education Patient Instructions Indication:[facility] Start:17-May-2021 Instruction Type:Provider Instructions for Treatment How to Access Health Informa tion Online using Patient Portal and [employer]rd [employer] Apps Indication:[facility] Start:17-May-2021 Instruction Type:Patient Education Patient Instructions Indication:Type 1 diabetes mellitus maturity onset Start:18-Nov-2020 Instruction Type:Provider Instructions for Treatment How to Access Health Informa tion Online using Patient Portal and [employer] Apps Indication:Type 1 diabetes mellitus maturity onset Start:18-Nov-2020 Instruction Type:Patient Education Patient Instructions Indication:Mixed hyperlipidemia Start:15-Jul-2020 Instruction Type:Provider Instructions for Treatment How to Access Health Informa tion Online using Patient Portal and [employer] Apps Indication:Mixed hyperlipidemia Start:15-Jul-2020 Instruction Type:Patient Education How to access health informa tion online Indication:[facility] Start:07-Apr-2020 Instruction Type:Patient Education How to access health informa tion online - Detail Indication:[facility] Start:07-Apr-2020 Instruction Type:Patient Education Patient Instructions Indication:[facility] Start:07-Apr-2020 Instruction Type:Provider Instructions for Treatment How to access health informa tion online Indication:Mixed hyperlipidemia Start:09-Dec-2019 Instruction Type:Patient Education How to access health informa tion online - Detail Indication:Mixed hyperlipidemia Start:09-Dec-2019 Instruction Type:Patient Education Patient Instructions Indication:Mixed hyperlipidemia Start:09-Dec-2019 Instruction Type:Provider Instructions for Treatment Patient Instructions Indication:Type 1 diabetes mellitus maturity onset Start:16-Aug-2019 Instruction Type:Provider Instructions for Treatment How to access health informa tion online Indication:Type 1 diabetes mellitus maturity onset Start:13-May-2019 Instruction Type:Patient Education How to access health informa tion online - Detail Indication:Type 1 diabetes mellitus maturity onset Start:13-May-2019 Instruction Type:Patient Education Patient Instructions Indication:Type 1 diabetes mellitus maturity onset Start:13-May-2019 Instruction Type:Provider Instructions for Treatment Patient Instructions Indication:Elevated high sensitivity C-reactive protein Start:07-Dec-2018 Instruction Type:Provider Instructions for Treatment How to access health informa tion online Indication:Obstructive sleep apnea, adult Start:07-Dec-2018 Instruction Type:Patient Education How to access health informa tion online - Detail Indication:Obstructive sleep apnea, adult Start:07-Dec-2018 Instruction Type:Patient Education Patient Instructions Indication:Obstructive sleep apnea, adult Start:07-Dec-2018 Instruction Type:Provider Instructions for Treatment Patient Instructions Indication:[facility] exam Start:27-Aug-2018 Instruction Type:Provider Instructions for Treatment How to access health informa tion online Indication:BMI 34.0-34.9,adult Start:27-Aug-2018 Instruction Type:Patient Education How to access health informa tion online - Detail Indication:BMI 34.0-34.9,adult Start:27-Aug-2018 Instruction Type:Patient Education Patient Instructions Indication:BMI 34.0-34.9,adult Start:27-Aug-2018 Instruction Type:Provider Instructions for Treatment Patient Instructions Indication:Diabetes mellitus Start:27-Nov-2012 Instruction Type:Provider Instructions for Treatment Patient Instructions Indication:Diabetes mellitus Start:18-Jul-2012 Instruction Type:Provider Instructions for Treatment [facility]; [facility] Work Phone: Instructions* Name Dates Details Patient Instructions Indication:Type 1 diabetes mellitus maturity onset Start:13-Jul-2022 Instruction Type:Provider Instructions for Treatment How to Access Health Informa tion Online using Patient Portal and [employer]rd [employer] Apps Indication:Type 1 diabetes mellitus maturity onset Start:13-Jul-2022 Instruction Type:Patient Education Patient Instructions Indication:BMI 33.0-33.9,adult Start:14-Jan-2022 Instruction Type:Provider Instructions for Treatment How to Access Health Informa tion Online using Patient Portal and [employer]rd [employer] Apps Indication:BMI 33.0-33.9,adult Start:14-Jan-2022 Instruction Type:Patient Education Patient Instructions Indication:Type 1 diabetes mellitus maturity onset Start:10-Sep-2021 Instruction Type:Provider Instructions for Treatment How to Access Health Informa tion Online using Patient Portal and [employer] Apps Indication:Type 1 diabetes mellitus maturity onset Start:10-Sep-2021 Instruction Type:Patient Education Patient Instructions Indication:[facility] Start:17-May-2021 Instruction Type:Provider Instructions for Treatment How to Access Health Informa tion Online using Patient Portal and [employer] Apps Indication:[facility] Start:17-May-2021 Instruction Type:Patient Education Patient Instructions Indication:Type 1 diabetes mellitus maturity onset Start:18-Nov-2020 Instruction Type:Provider Instructions for Treatment How to Access Health Informa tion Online using Patient Portal and [employer] Apps Indication:Type 1 diabetes mellitus maturity onset Start:18-Nov-2020 Instruction Type:Patient Education Patient Instructions Indication:Mixed hyperlipidemia Start:15-Jul-2020 Instruction Type:Provider Instructions for Treatment How to Access Health Informa tion Online using Patient Portal and [employer] Apps Indication:Mixed hyperlipidemia Start:15-Jul-2020 Instruction Type:Patient Education How to access health informa tion online Indication:[facility] EX[facility] Start:07-Apr-2020 Instruction Type:Patient Education How to access health informa tion online - Detail Indication:[facility] EX[facility] Start:07-Apr-2020 Instruction Type:Patient Education Patient Instructions Indication:[facility] EX[facility] Start:07-Apr-2020 Instruction Type:Provider Instructions for Treatment How to access health informa tion online Indication:Mixed hyperlipidemia Start:09-Dec-2019 Instruction Type:Patient Education How to access health informa tion online - Detail Indication:Mixed hyperlipidemia Start:09-Dec-2019 Instruction Type:Patient Education Patient Instructions Indication:Mixed hyperlipidemia Start:09-Dec-2019 Instruction Type:Provider Instructions for Treatment Patient Instructions Indication:Type 1 diabetes mellitus maturity onset Start:16-Aug-2019 Instruction Type:Provider Instructions for Treatment How to access health informa tion online Indication:Type 1 diabetes mellitus maturity onset Start:13-May-2019 Instruction Type:Patient Education How to access health informa tion online - Detail Indication:Type 1 diabetes mellitus maturity onset Start:13-May-2019 Instruction Type:Patient Education Patient Instructions Indication:Type 1 diabetes mellitus maturity onset Start:13-May-2019 Instruction Type:Provider Instructions for Treatment Patient Instructions Indication:Elevated high sensitivity C-reactive protein Start:07-Dec-2018 Instruction Type:Provider Instructions for Treatment How to access health informa tion online Indication:Obstructive sleep apnea, adult Start:07-Dec-2018 Instruction Type:Patient Education How to access health informa tion online - Detail Indication:Obstructive sleep apnea, adult Start:07-Dec-2018 Instruction Type:Patient Education Patient Instructions Indication:Obstructive sleep apnea, adult Start:07-Dec-2018 Instruction Type:Provider Instructions for Treatment Patient Instructions Indication:[facility] exam Start:27-Aug-2018 Instruction Type:Provider Instructions for Treatment How to access health informa tion online Indication:BMI 34.0-34.9,adult Start:27-Aug-2018 Instruction Type:Patient Education How to access health informa tion online - Detail Indication:BMI 34.0-34.9,adult Start:27-Aug-2018 Instruction Type:Patient Education Patient Instructions Indication:BMI 34.0-34.9,adult Start:27-Aug-2018 Instruction Type:Provider Instructions for Treatment Patient Instructions Indication:Diabetes mellitus Start:27-Nov-2012 Instruction Type:Provider Instructions for Treatment Patient Instructions Indication:Diabetes mellitus Start:18-Jul-2012 Instruction Type:Provider Instructions for Treatment [facility]; [facility] Work Phone: Instructions* Name Dates Details Patient Instructions Indication:[facility] Start:28-Oct-2022 Instruction Type:Provider Instructions for Treatment Patient Instructions Indication:Type 1 diabetes mellitus maturity onset Start:13-Jul-2022 Instruction Type:Provider Instructions for Treatment How to Access Health Informa tion Online using Patient Portal and [employer] Apps Indication:Type 1 diabetes mellitus maturity onset Start:13-Jul-2022 Instruction Type:Patient Education Patient Instructions Indication:BMI 33.0-33.9,adult Start:14-Jan-2022 Instruction Type:Provider Instructions for Treatment How to Access Health Informa tion Online using Patient Portal and [employer] Apps Indication:BMI 33.0-33.9,adult Start:14-Jan-2022 Instruction Type:Patient Education Patient Instructions Indication:Type 1 diabetes mellitus maturity onset Start:10-Sep-2021 Instruction Type:Provider Instructions for Treatment How to Access Health Informa tion Online using Patient Portal and [employer] Apps Indication:Type 1 diabetes mellitus maturity onset Start:10-Sep-2021 Instruction Type:Patient Education Patient Instructions Indication:[facility] Start:17-May-2021 Instruction Type:Provider Instructions for Treatment How to Access Health Informa tion Online using Patient Portal and [employer] Apps Indication:[facility] EX[facility] Start:17-May-2021 Instruction Type:Patient Education Patient Instructions Indication:Type 1 diabetes mellitus maturity onset Start:18-Nov-2020 Instruction Type:Provider Instructions for Treatment How to Access Health Informa tion Online using Patient Portal and [employer] Apps Indication:Type 1 diabetes mellitus maturity onset Start:18-Nov-2020 Instruction Type:Patient Education Patient Instructions Indication:Mixed hyperlipidemia Start:15-Jul-2020 Instruction Type:Provider Instructions for Treatment How to Access Health Informa tion Online using Patient Portal and [employer] Apps Indication:Mixed hyperlipidemia Start:15-Jul-2020 Instruction Type:Patient Education How to access health informa tion online Indication:[facility] EX[facility] Start:07-Apr-2020 Instruction Type:Patient Education How to access health informa tion online - Detail Indication:[facility] EX[facility] Start:07-Apr-2020 Instruction Type:Patient Education Patient Instructions Indication:[facility] EX[facility] Start:07-Apr-2020 Instruction Type:Provider Instructions for Treatment How to access health informa tion online Indication:Mixed hyperlipidemia Start:09-Dec-2019 Instruction Type:Patient Education How to access health informa tion online - Detail Indication:Mixed hyperlipidemia Start:09-Dec-2019 Instruction Type:Patient Education Patient Instructions Indication:Mixed hyperlipidemia Start:09-Dec-2019 Instruction Type:Provider Instructions for Treatment Patient Instructions Indication:Type 1 diabetes mellitus maturity onset Start:16-Aug-2019 Instruction Type:Provider Instructions for Treatment How to access health informa tion online Indication:Type 1 diabetes mellitus maturity onset Start:13-May-2019 Instruction Type:Patient Education How to access health informa tion online - Detail Indication:Type 1 diabetes mellitus maturity onset Start:13-May-2019 Instruction Type:Patient Education Patient Instructions Indication:Type 1 diabetes mellitus maturity onset Start:13-May-2019 Instruction Type:Provider Instructions for Treatment Patient Instructions Indication:Elevated high sensitivity C-reactive protein Start:07-Dec-2018 Instruction Type:Provider Instructions for Treatment How to access health informa tion online Indication:Obstructive sleep apnea, adult Start:07-Dec-2018 Instruction Type:Patient Education How to access health informa tion online - Detail Indication:Obstructive sleep apnea, adult Start:07-Dec-2018 Instruction Type:Patient Education Patient Instructions Indication:Obstructive sleep apnea, adult Start:07-Dec-2018 Instruction Type:Provider Instructions for Treatment Patient Instructions Indication:[facility] exam Start:27-Aug-2018 Instruction Type:Provider Instructions for Treatment How to access health informa tion online Indication:BMI 34.0-34.9,adult Start:27-Aug-2018 Instruction Type:Patient Education How to access health informa tion online - Detail Indication:BMI 34.0-34.9,adult Start:27-Aug-2018 Instruction Type:Patient Education Patient Instructions Indication:BMI 34.0-34.9,adult Start:27-Aug-2018 Instruction Type:Provider Instructions for Treatment Patient Instructions Indication:Diabetes mellitus Start:27-Nov-2012 Instruction Type:Provider Instructions for Treatment Patient Instructions Indication:Diabetes mellitus Start:18-Jul-2012 Instruction Type:Provider Instructions for Treatment [facility]; [facility] Work Phone: Instructions* Name Dates Details Patient Instructions Indication:[facility] EX[facility] Start:28-Oct-2022 Instruction Type:Provider Instructions for Treatment Patient Instructions Indication:Type 1 diabetes mellitus maturity onset Start:13-Jul-2022 Instruction Type:Provider Instructions for Treatment How to Access Health Informa tion Online using Patient Portal and [employer] Apps Indication:Type 1 diabetes mellitus maturity onset Start:13-Jul-2022 Instruction Type:Patient Education Patient Instructions Indication:BMI 33.0-33.9,adult Start:14-Jan-2022 Instruction Type:Provider Instructions for Treatment How to Access Health Informa tion Online using Patient Portal and [employer]rd [employer] Apps Indication:BMI 33.0-33.9,adult Start:14-Jan-2022 Instruction Type:Patient Education Patient Instructions Indication:Type 1 diabetes mellitus maturity onset Start:10-Sep-2021 Instruction Type:Provider Instructions for Treatment How to Access Health Informa tion Online using Patient Portal and [employer] Apps Indication:Type 1 diabetes mellitus maturity onset Start:10-Sep-2021 Instruction Type:Patient Education Patient Instructions Indication:[facility] EX[facility] Start:17-May-2021 Instruction Type:Provider Instructions for Treatment How to Access Health Informa tion Online using Patient Portal and [employer]rd [employer] Apps Indication:[facility] EX[facility] Start:17-May-2021 Instruction Type:Patient Education Patient Instructions Indication:Type 1 diabetes mellitus maturity onset Start:18-Nov-2020 Instruction Type:Provider Instructions for Treatment How to Access Health Informa tion Online using Patient Portal and [employer]rd [employer] Apps Indication:Type 1 diabetes mellitus maturity onset Start:18-Nov-2020 Instruction Type:Patient Education Patient Instructions Indication:Mixed hyperlipidemia Start:15-Jul-2020 Instruction Type:Provider Instructions for Treatment How to Access Health Informa tion Online using Patient Portal and [employer] Apps Indication:Mixed hyperlipidemia Start:15-Jul-2020 Instruction Type:Patient Education How to access health informa tion online Indication:[facility] EX[facility] Start:07-Apr-2020 Instruction Type:Patient Education How to access health informa tion online - Detail Indication:[facility] EX[facility] Start:07-Apr-2020 Instruction Type:Patient Education Patient Instructions Indication:[facility] EX[facility] Start:07-Apr-2020 Instruction Type:Provider Instructions for Treatment How to access health informa tion online Indication:Mixed hyperlipidemia Start:09-Dec-2019 Instruction Type:Patient Education How to access health informa tion online - Detail Indication:Mixed hyperlipidemia Start:09-Dec-2019 Instruction Type:Patient Education Patient Instructions Indication:Mixed hyperlipidemia Start:09-Dec-2019 Instruction Type:Provider Instructions for Treatment Patient Instructions Indication:Type 1 diabetes mellitus maturity onset Start:16-Aug-2019 Instruction Type:Provider Instructions for Treatment How to access health informa tion online Indication:Type 1 diabetes mellitus maturity onset Start:13-May-2019 Instruction Type:Patient Education How to access health informa tion online - Detail Indication:Type 1 diabetes mellitus maturity onset Start:13-May-2019 Instruction Type:Patient Education Patient Instructions Indication:Type 1 diabetes mellitus maturity onset Start:13-May-2019 Instruction Type:Provider Instructions for Treatment Patient Instructions Indication:Elevated high sensitivity C-reactive protein Start:07-Dec-2018 Instruction Type:Provider Instructions for Treatment How to access health informa tion online Indication:Obstructive sleep apnea, adult Start:07-Dec-2018 Instruction Type:Patient Education How to access health informa tion online - Detail Indication:Obstructive sleep apnea, adult Start:07-Dec-2018 Instruction Type:Patient Education Patient Instructions Indication:Obstructive sleep apnea, adult Start:07-Dec-2018 Instruction Type:Provider Instructions for Treatment Patient Instructions Indication:[facility] exam Start:27-Aug-2018 Instruction Type:Provider Instructions for Treatment How to access health informa tion online Indication:BMI 34.0-34.9,adult Start:27-Aug-2018 Instruction Type:Patient Education How to access health informa tion online - Detail Indication:BMI 34.0-34.9,adult Start:27-Aug-2018 Instruction Type:Patient Education Patient Instructions Indication:BMI 34.0-34.9,adult Start:27-Aug-2018 Instruction Type:Provider Instructions for Treatment Patient Instructions Indication:Diabetes mellitus Start:27-Nov-2012 Instruction Type:Provider Instructions for Treatment Patient Instructions Indication:Diabetes mellitus Start:18-Jul-2012 Instruction Type:Provider Instructions for Treatment [facility] Work Phone: reason for referral (narrative)No reason for referral information available[facility]: Family History No Family History Records FoundUnknown Family Member Name Dates Details Father Comments: 66 deaf- b ad ear infection and antiobiotic called hearing loss - type 2 dm- dementia- had sepsis then issues with low blood sugar Status:Active Mother Comments:living with congeni chinyere deafness - personality disorder- Status:Active Paternal Grandmother Comments:living at 104- live d alone until 101- dementia Status:Active Unknown Family Member Name Dates Details Father Comments: 66 deaf- b ad ear infection and antiobiotic called hearing loss - type 2 dm- dementia- had sepsis then issues with low blood sugar Status:Active Mother Comments:living with congeni chinyere deafness - personality disorder- Status:Active Paternal Grandmother Comments:living at 104- live d alone until 101- dementia Status:Active Unknown Family Member Name Dates Details Father Comments: 66 deaf- b ad ear infection and antiobiotic called hearing loss - type 2 dm- dementia- had sepsis then issues with low blood sugar Status:Active Mother Comments:living with laci whitlock deafness - personality disorder- Status:Active Paternal Grandmother Comments:living at 104- live d alone until 101- dementia Status:Active Unknown Family Member Name Dates Details Father Comments: 66 deaf- b ad ear infection and antiobiotic called hearing loss - type 2 dm- dementia- had sepsis then issues with low blood sugar Status:Active Mother Comments:living with laci whitlock deafness - personality disorder- Status:Active Paternal Grandmother Comments:living at 104- live d alone until 101- dementia Status:Active Unknown Family Member Name Dates Details Father Comments: 66 deaf- b ad ear infection and antiobiotic called hearing loss - type 2 dm- dementia- had sepsis then issues with low blood sugar Status:Active Mother Comments:living with laci whitlock deafness - personality disorder- Status:Active Paternal Grandmother Comments:living at 104- live d alone until 101- dementia Status:Active Unknown Family Member Name Dates Details Father Comments: 66 deaf- b ad ear infection and antiobiotic called hearing loss - type 2 dm- dementia- had sepsis then issues with low blood sugar Status:Active Mother Comments:living with laci whitlock deafness - personality disorder- Status:Active Paternal Grandmother Comments:living at 104- live d alone until 101- dementia Status:Active Unknown Family Member Name Dates Details Father Comments: 66 deaf- b ad ear infection and antiobiotic called hearing loss - type 2 dm- dementia- had sepsis then issues with low blood sugar Status:Active Mother Comments:living with laci whitlock deafness - personality disorder- Status:Active Paternal Grandmother Comments:living at 104- live d alone until 101- dementia Status:Active Unknown Family Member Name Dates Details Father Comments: 66 deaf- b ad ear infection and antiobiotic called hearing loss - type 2 dm- dementia- had sepsis then issues with low blood sugar Status:Active Mother Comments:living with laci whitlock deafness - personality disorder- Status:Active Paternal Grandmother Comments:living at 104- live d alone until 101- dementia Status:Active Unknown Family Member Name Dates Details Father Comments: 66 deaf- b ad ear infection and antiobiotic called hearing loss - type 2 dm- dementia- had sepsis then issues with low blood sugar Status:Active Mother Comments:living with laci whitlock deafness - personality disorder- Status:Active Paternal Grandmother Comments:living at 104- live d alone until 101- dementia Status:Active Unknown Family Member Name Dates Details Father Comments: 66 deaf- b ad ear infection and antiobiotic called hearing loss - type 2 dm- dementia- had sepsis then issues with low blood sugar Status:Active Mother Comments:living with laci whitlock deafness - personality disorder- Status:Active Paternal Grandmother Comments:living at 104- live d alone until 101- dementia Status:Active Unknown Family Member Name Dates Details Father Comments: 66 deaf- b ad ear infection and antiobiotic called hearing loss - type 2 dm- dementia- had sepsis then issues with low blood sugar Status:Active Mother Comments:living with laci whitlock deafness - personality disorder- Status:Active Paternal Grandmother Comments:living at 104- live d alone until 101- dementia Status:Active Unknown Family Member Name Dates Details Father Comments: 66 deaf- b ad ear infection and antiobiotic called hearing loss - type 2 dm- dementia- had sepsis then issues with low blood sugar Status:Active Mother Comments:living with laci whitlock deafness - personality disorder- Status:Active Paternal Grandmother Comments:living at 104- live d alone until 101- dementia Status:Active Unknown Family Member Name Dates Details Father Comments: 66 deaf- b ad ear infection and antiobiotic called hearing loss - type 2 dm- dementia- had sepsis then issues with low blood sugar Status:Active Mother Comments:living with laci whitlock deafness - personality disorder- Status:Active Paternal Grandmother Comments:living at 104- live d alone until 101- dementia Status:Active Unknown Family Member Name Dates Details Father Comments: 66 deaf- b ad ear infection and antiobiotic called hearing loss - type 2 dm- dementia- had sepsis then issues with low blood sugar Status:Active Mother Comments:living with laci whitlock deafness - personality disorder- Status:Active Paternal Grandmother Comments:living at 104- live d alone until 101- dementia Status:Active Unknown Family Member Name Dates Details Father Comments: 66 deaf- b ad ear infection and antiobiotic called hearing loss - type 2 dm- dementia- had sepsis then issues with low blood sugar Status:Active Mother Comments:living with laci whitlock deafness - personality disorder- Status:Active Paternal Grandmother Comments:living at 104- live d alone until 101- dementia Status:Active Unknown Family Member Name Dates Details Father Comments: 66 deaf- b ad ear infection and antiobiotic called hearing loss - type 2 dm- dementia- had sepsis then issues with low blood sugar Status:Active Mother Comments:living with laci whitlock deafness - personality disorder- Status:Active Paternal Grandmother Comments:living at 104- live d alone until 101- dementia Status:Active Unknown Family Member Name Dates Details Father Comments: 66 deaf- b ad ear infection and antiobiotic called hearing loss - type 2 dm- dementia- had sepsis then issues with low blood sugar Status:Active Mother Comments:living with laci whitlock deafness - personality disorder- Status:Active Paternal Grandmother Comments:living at 104- live d alone until 101- dementia Status:Active Unknown Family Member Name Dates Details Father Comments: 66 deaf- b ad ear infection and antiobiotic called hearing loss - type 2 dm- dementia- had sepsis then issues with low blood sugar Status:Active Mother Comments:living with laci whitlock deafness - personality disorder- Status:Active Paternal Grandmother Comments:living at 104- live d alone until 101- dementia Status:Active Unknown Family Member Name Dates Details Father Comments: 66 deaf- b ad ear infection and antiobiotic called hearing loss - type 2 dm- dementia- had sepsis then issues with low blood sugar Status:Active Mother Comments:living with laci whitlock deafness - personality disorder- Status:Active Paternal Grandmother Comments:living at 104- live d alone until 101- dementia Status:Active Unknown Family Member Name Dates Details Father Comments: 66 deaf- b ad ear infection and antiobiotic called hearing loss - type 2 dm- dementia- had sepsis then issues with low blood sugar Status:Active Mother Comments:living with laci whitlock deafness - personality disorder- Status:Active Paternal Grandmother Comments:living at 104- live d alone until 101- dementia Status:Active Unknown Family Member Name Dates Details Father Comments: 66 deaf- b ad ear infection and antiobiotic called hearing loss - type 2 dm- dementia- had sepsis then issues with low blood sugar Status:Active Mother Comments:living with laci whitlock deafness - personality disorder- Status:Active Paternal Grandmother Comments:living at 104- live d alone until 101- dementia Status:Active Unknown Family Member Name Dates Details Father Comments: 66 deaf- b ad ear infection and antiobiotic called hearing loss - type 2 dm- dementia- had sepsis then issues with low blood sugar Status:Active Mother Comments:living with laci whitlock deafness - personality disorder- Status:Active Paternal Grandmother Comments:living at 104- live d alone until 101- dementia Status:Active Unknown Family Member Name Dates Details Father Comments: 66 deaf- b ad ear infection and antiobiotic called hearing loss - type 2 dm- dementia- had sepsis then issues with low blood sugar Status:Active Mother Comments:living with laci chinyere deafness - personality disorder- Status:Active Paternal Grandmother Comments:living at 104- live d alone until 101- dementia Status:Active Unknown Family Member Name Dates Details Father Comments: 66 deaf- b ad ear infection and antiobiotic called hearing loss - type 2 dm- dementia- had sepsis then issues with low blood sugar Status:Active Mother Comments:living with laci whitlock deafness - personality disorder- Status:Active Paternal Grandmother Comments:living at 104- live d alone until 101- dementia Status:Active Unknown Family Member Name Dates Details Father Comments: 66 deaf- b ad ear infection and antiobiotic called hearing loss - type 2 dm- dementia- had sepsis then issues with low blood sugar Status:Active Mother Comments:living with laci whitlock deafness - personality disorder- Status:Active Paternal Grandmother Comments:living at 104- live d alone until 101- dementia Status:Active Relationship Condition Age at Onset Recorded Date/T olvin Not Specified Diabetes mellitus Unknown High blood cholesterol Unknown Instructions Name Dates Details How to access health informa tion online Indication:Obstructive sleep apnea, adult Start:07-Dec-2018 Instruction Type:Patient Education How to access health informa tion online - Detail Indication:Obstructive sleep apnea, adult Start:07-Dec-2018 Instruction Type:Patient Education Patient Instructions Indication:Obstructive sleep apnea, adult Start:07-Dec-2018 Instruction Type:Provider Instructions for Treatment Patient Instructions Indication:[facility] wellness exam Start:27-Aug-2018 Instruction Type:Provider Instructions for Treatment How to access health informa tion online Indication:BMI 34.0-34.9,adult Start:27-Aug-2018 Instruction Type:Patient Education How to access health informa tion online - Detail Indication:BMI 34.0-34.9,adult Start:27-Aug-2018 Instruction Type:Patient Education Patient Instructions Indication:BMI 34.0-34.9,adult Start:27-Aug-2018 Instruction Type:Provider Instructions for Treatment Patient Instructions Indication:Diabetes mellitus Start:27-Nov-2012 Instruction Type:Provider Instructions for Treatment Patient Instructions Indication:Diabetes mellitus Start:18-Jul-2012 Instruction Type:Provider Instructions for Treatment Name Dates Details Patient Instructions Indication:Elevated high sensitivity C-reactive protein Start:07-Dec-2018 Instruction Type:Provider Instructions for Treatment How to access health informa tion online Indication:Obstructive sleep apnea, adult Start:07-Dec-2018 Instruction Type:Patient Education How to access health informa tion online - Detail Indication:Obstructive sleep apnea, adult Start:07-Dec-2018 Instruction Type:Patient Education Patient Instructions Indication:Obstructive sleep apnea, adult Start:07-Dec-2018 Instruction Type:Provider Instructions for Treatment Patient Instructions Indication:[facility] exam Start:27-Aug-2018 Instruction Type:Provider Instructions for Treatment How to access health informa tion online Indication:BMI 34.0-34.9,adult Start:27-Aug-2018 Instruction Type:Patient Education How to access health informa tion online - Detail Indication:BMI 34.0-34.9,adult Start:27-Aug-2018 Instruction Type:Patient Education Patient Instructions Indication:BMI 34.0-34.9,adult Start:27-Aug-2018 Instruction Type:Provider Instructions for Treatment Patient Instructions Indication:Diabetes mellitus Start:27-Nov-2012 Instruction Type:Provider Instructions for Treatment Patient Instructions Indication:Diabetes mellitus Start:18-Jul-2012 Instruction Type:Provider Instructions for Treatment Name Dates Details Patient Instructions Indication:Elevated high sensitivity C-reactive protein Start:07-Dec-2018 Instruction Type:Provider Instructions for Treatment How to access health informa tion online Indication:Obstructive sleep apnea, adult Start:07-Dec-2018 Instruction Type:Patient Education How to access health informa tion online - Detail Indication:Obstructive sleep apnea, adult Start:07-Dec-2018 Instruction Type:Patient Education Patient Instructions Indication:Obstructive sleep apnea, adult Start:07-Dec-2018 Instruction Type:Provider Instructions for Treatment Patient Instructions Indication:[facility] exam Start:27-Aug-2018 Instruction Type:Provider Instructions for Treatment How to access health informa tion online Indication:BMI 34.0-34.9,adult Start:27-Aug-2018 Instruction Type:Patient Education How to access health informa tion online - Detail Indication:BMI 34.0-34.9,adult Start:27-Aug-2018 Instruction Type:Patient Education Patient Instructions Indication:BMI 34.0-34.9,adult Start:27-Aug-2018 Instruction Type:Provider Instructions for Treatment Patient Instructions Indication:Diabetes mellitus Start:27-Nov-2012 Instruction Type:Provider Instructions for Treatment Patient Instructions Indication:Diabetes mellitus Start:18-Jul-2012 Instruction Type:Provider Instructions for Treatment Name Dates Details How to access health informa tion online Indication:Type 1 diabetes mellitus maturity onset Start:13-May-2019 Instruction Type:Patient Education How to access health informa tion online - Detail Indication:Type 1 diabetes mellitus maturity onset Start:13-May-2019 Instruction Type:Patient Education Patient Instructions Indication:Type 1 diabetes mellitus maturity onset Start:13-May-2019 Instruction Type:Provider Instructions for Treatment Patient Instructions Indication:Elevated high sensitivity C-reactive protein Start:07-Dec-2018 Instruction Type:Provider Instructions for Treatment How to access health informa tion online Indication:Obstructive sleep apnea, adult Start:07-Dec-2018 Instruction Type:Patient Education How to access health informa tion online - Detail Indication:Obstructive sleep apnea, adult Start:07-Dec-2018 Instruction Type:Patient Education Patient Instructions Indication:Obstructive sleep apnea, adult Start:07-Dec-2018 Instruction Type:Provider Instructions for Treatment Patient Instructions Indication:[facility] exam Start:27-Aug-2018 Instruction Type:Provider Instructions for Treatment How to access health informa tion online Indication:BMI 34.0-34.9,adult Start:27-Aug-2018 Instruction Type:Patient Education How to access health informa tion online - Detail Indication:BMI 34.0-34.9,adult Start:27-Aug-2018 Instruction Type:Patient Education Patient Instructions Indication:BMI 34.0-34.9,adult Start:27-Aug-2018 Instruction Type:Provider Instructions for Treatment Patient Instructions Indication:Diabetes mellitus Start:27-Nov-2012 Instruction Type:Provider Instructions for Treatment Patient Instructions Indication:Diabetes mellitus Start:18-Jul-2012 Instruction Type:Provider Instructions for Treatment Name Dates Details How to access health informa tion online Indication:Type 1 diabetes mellitus maturity onset Start:13-May-2019 Instruction Type:Patient Education How to access health informa tion online - Detail Indication:Type 1 diabetes mellitus maturity onset Start:13-May-2019 Instruction Type:Patient Education Patient Instructions Indication:Type 1 diabetes mellitus maturity onset Start:13-May-2019 Instruction Type:Provider Instructions for Treatment Patient Instructions Indication:Elevated high sensitivity C-reactive protein Start:07-Dec-2018 Instruction Type:Provider Instructions for Treatment How to access health informa tion online Indication:Obstructive sleep apnea, adult Start:07-Dec-2018 Instruction Type:Patient Education How to access health informa tion online - Detail Indication:Obstructive sleep apnea, adult Start:07-Dec-2018 Instruction Type:Patient Education Patient Instructions Indication:Obstructive sleep apnea, adult Start:07-Dec-2018 Instruction Type:Provider Instructions for Treatment Patient Instructions Indication:[facility] exam Start:27-Aug-2018 Instruction Type:Provider Instructions for Treatment How to access health informa tion online Indication:BMI 34.0-34.9,adult Start:27-Aug-2018 Instruction Type:Patient Education How to access health informa tion online - Detail Indication:BMI 34.0-34.9,adult Start:27-Aug-2018 Instruction Type:Patient Education Patient Instructions Indication:BMI 34.0-34.9,adult Start:27-Aug-2018 Instruction Type:Provider Instructions for Treatment Patient Instructions Indication:Diabetes mellitus Start:27-Nov-2012 Instruction Type:Provider Instructions for Treatment Patient Instructions Indication:Diabetes mellitus Start:18-Jul-2012 Instruction Type:Provider Instructions for Treatment Name Dates Details How to access health informa tion online Indication:[facility] EX[facility] Start:07-Apr-2020 Instruction Type:Patient Education How to access health informa tion online - Detail Indication:[facility] Start:07-Apr-2020 Instruction Type:Patient Education Patient Instructions Indication:[facility] Start:07-Apr-2020 Instruction Type:Provider Instructions for Treatment How to access health informa tion online Indication:Mixed hyperlipidemia Start:09-Dec-2019 Instruction Type:Patient Education How to access health informa tion online - Detail Indication:Mixed hyperlipidemia Start:09-Dec-2019 Instruction Type:Patient Education Patient Instructions Indication:Mixed hyperlipidemia Start:09-Dec-2019 Instruction Type:Provider Instructions for Treatment Patient Instructions Indication:Type 1 diabetes mellitus maturity onset Start:16-Aug-2019 Instruction Type:Provider Instructions for Treatment How to access health informa tion online Indication:Type 1 diabetes mellitus maturity onset Start:13-May-2019 Instruction Type:Patient Education How to access health informa tion online - Detail Indication:Type 1 diabetes mellitus maturity onset Start:13-May-2019 Instruction Type:Patient Education Patient Instructions Indication:Type 1 diabetes mellitus maturity onset Start:13-May-2019 Instruction Type:Provider Instructions for Treatment Patient Instructions Indication:Elevated high sensitivity C-reactive protein Start:07-Dec-2018 Instruction Type:Provider Instructions for Treatment How to access health informa tion online Indication:Obstructive sleep apnea, adult Start:07-Dec-2018 Instruction Type:Patient Education How to access health informa tion online - Detail Indication:Obstructive sleep apnea, adult Start:07-Dec-2018 Instruction Type:Patient Education Patient Instructions Indication:Obstructive sleep apnea, adult Start:07-Dec-2018 Instruction Type:Provider Instructions for Treatment Patient Instructions Indication:[facility] exam Start:27-Aug-2018 Instruction Type:Provider Instructions for Treatment How to access health informa tion online Indication:BMI 34.0-34.9,adult Start:27-Aug-2018 Instruction Type:Patient Education How to access health informa tion online - Detail Indication:BMI 34.0-34.9,adult Start:27-Aug-2018 Instruction Type:Patient Education Patient Instructions Indication:BMI 34.0-34.9,adult Start:27-Aug-2018 Instruction Type:Provider Instructions for Treatment Patient Instructions Indication:Diabetes mellitus Start:27-Nov-2012 Instruction Type:Provider Instructions for Treatment Patient Instructions Indication:Diabetes mellitus Start:18-Jul-2012 Instruction Type:Provider Instructions for Treatment Name Dates Details How to access health informa tion online Indication:[facility] EX[facility] Start:07-Apr-2020 Instruction Type:Patient Education How to access health informa tion online - Detail Indication:[facility] Start:07-Apr-2020 Instruction Type:Patient Education Patient Instructions Indication:[facility] Start:07-Apr-2020 Instruction Type:Provider Instructions for Treatment How to access health informa tion online Indication:Mixed hyperlipidemia Start:09-Dec-2019 Instruction Type:Patient Education How to access health informa tion online - Detail Indication:Mixed hyperlipidemia Start:09-Dec-2019 Instruction Type:Patient Education Patient Instructions Indication:Mixed hyperlipidemia Start:09-Dec-2019 Instruction Type:Provider Instructions for Treatment Patient Instructions Indication:Type 1 diabetes mellitus maturity onset Start:16-Aug-2019 Instruction Type:Provider Instructions for Treatment How to access health informa tion online Indication:Type 1 diabetes mellitus maturity onset Start:13-May-2019 Instruction Type:Patient Education How to access health informa tion online - Detail Indication:Type 1 diabetes mellitus maturity onset Start:13-May-2019 Instruction Type:Patient Education Patient Instructions Indication:Type 1 diabetes mellitus maturity onset Start:13-May-2019 Instruction Type:Provider Instructions for Treatment Patient Instructions Indication:Elevated high sensitivity C-reactive protein Start:07-Dec-2018 Instruction Type:Provider Instructions for Treatment How to access health informa tion online Indication:Obstructive sleep apnea, adult Start:07-Dec-2018 Instruction Type:Patient Education How to access health informa tion online - Detail Indication:Obstructive sleep apnea, adult Start:07-Dec-2018 Instruction Type:Patient Education Patient Instructions Indication:Obstructive sleep apnea, adult Start:07-Dec-2018 Instruction Type:Provider Instructions for Treatment Patient Instructions Indication:[facility] exam Start:27-Aug-2018 Instruction Type:Provider Instructions for Treatment How to access health informa tion online Indication:BMI 34.0-34.9,adult Start:27-Aug-2018 Instruction Type:Patient Education How to access health informa tion online - Detail Indication:BMI 34.0-34.9,adult Start:27-Aug-2018 Instruction Type:Patient Education Patient Instructions Indication:BMI 34.0-34.9,adult Start:27-Aug-2018 Instruction Type:Provider Instructions for Treatment Patient Instructions Indication:Diabetes mellitus Start:27-Nov-2012 Instruction Type:Provider Instructions for Treatment Patient Instructions Indication:Diabetes mellitus Start:18-Jul-2012 Instruction Type:Provider Instructions for Treatment Name Dates Details Patient Instructions Indication:Mixed hyperlipidemia Start:15-Jul-2020 Instruction Type:Provider Instructions for Treatment How to Access Health Informa tion Online using Patient Portal and [employer] Apps Indication:Mixed hyperlipidemia Start:15-Jul-2020 Instruction Type:Patient Education How to access health informa tion online Indication:[facility] Start:07-Apr-2020 Instruction Type:Patient Education How to access health informa tion online - Detail Indication:[facility] Start:07-Apr-2020 Instruction Type:Patient Education Patient Instructions Indication:[facility] Start:07-Apr-2020 Instruction Type:Provider Instructions for Treatment How to access health informa tion online Indication:Mixed hyperlipidemia Start:09-Dec-2019 Instruction Type:Patient Education How to access health informa tion online - Detail Indication:Mixed hyperlipidemia Start:09-Dec-2019 Instruction Type:Patient Education Patient Instructions Indication:Mixed hyperlipidemia Start:09-Dec-2019 Instruction Type:Provider Instructions for Treatment Patient Instructions Indication:Type 1 diabetes mellitus maturity onset Start:16-Aug-2019 Instruction Type:Provider Instructions for Treatment How to access health informa tion online Indication:Type 1 diabetes mellitus maturity onset Start:13-May-2019 Instruction Type:Patient Education How to access health informa tion online - Detail Indication:Type 1 diabetes mellitus maturity onset Start:13-May-2019 Instruction Type:Patient Education Patient Instructions Indication:Type 1 diabetes mellitus maturity onset Start:13-May-2019 Instruction Type:Provider Instructions for Treatment Patient Instructions Indication:Elevated high sensitivity C-reactive protein Start:07-Dec-2018 Instruction Type:Provider Instructions for Treatment How to access health informa tion online Indication:Obstructive sleep apnea, adult Start:07-Dec-2018 Instruction Type:Patient Education How to access health informa tion online - Detail Indication:Obstructive sleep apnea, adult Start:07-Dec-2018 Instruction Type:Patient Education Patient Instructions Indication:Obstructive sleep apnea, adult Start:07-Dec-2018 Instruction Type:Provider Instructions for Treatment Patient Instructions Indication:[facility] exam Start:27-Aug-2018 Instruction Type:Provider Instructions for Treatment How to access health informa tion online Indication:BMI 34.0-34.9,adult Start:27-Aug-2018 Instruction Type:Patient Education How to access health informa tion online - Detail Indication:BMI 34.0-34.9,adult Start:27-Aug-2018 Instruction Type:Patient Education Patient Instructions Indication:BMI 34.0-34.9,adult Start:27-Aug-2018 Instruction Type:Provider Instructions for Treatment Patient Instructions Indication:Diabetes mellitus Start:27-Nov-2012 Instruction Type:Provider Instructions for Treatment Patient Instructions Indication:Diabetes mellitus Start:18-Jul-2012 Instruction Type:Provider Instructions for Treatment Name Dates Details Patient Instructions Indication:Mixed hyperlipidemia Start:15-Jul-2020 Instruction Type:Provider Instructions for Treatment How to Access Health Informa tion Online using Patient Portal and [employer] Apps Indication:Mixed hyperlipidemia Start:15-Jul-2020 Instruction Type:Patient Education How to access health informa tion online Indication:[facility] Start:07-Apr-2020 Instruction Type:Patient Education How to access health informa tion online - Detail Indication:[facility] Start:07-Apr-2020 Instruction Type:Patient Education Patient Instructions Indication:[facility] Start:07-Apr-2020 Instruction Type:Provider Instructions for Treatment How to access health informa tion online Indication:Mixed hyperlipidemia Start:09-Dec-2019 Instruction Type:Patient Education How to access health informa tion online - Detail Indication:Mixed hyperlipidemia Start:09-Dec-2019 Instruction Type:Patient Education Patient Instructions Indication:Mixed hyperlipidemia Start:09-Dec-2019 Instruction Type:Provider Instructions for Treatment Patient Instructions Indication:Type 1 diabetes mellitus maturity onset Start:16-Aug-2019 Instruction Type:Provider Instructions for Treatment How to access health informa tion online Indication:Type 1 diabetes mellitus maturity onset Start:13-May-2019 Instruction Type:Patient Education How to access health informa tion online - Detail Indication:Type 1 diabetes mellitus maturity onset Start:13-May-2019 Instruction Type:Patient Education Patient Instructions Indication:Type 1 diabetes mellitus maturity onset Start:13-May-2019 Instruction Type:Provider Instructions for Treatment Patient Instructions Indication:Elevated high sensitivity C-reactive protein Start:07-Dec-2018 Instruction Type:Provider Instructions for Treatment How to access health informa tion online Indication:Obstructive sleep apnea, adult Start:07-Dec-2018 Instruction Type:Patient Education How to access health informa tion online - Detail Indication:Obstructive sleep apnea, adult Start:07-Dec-2018 Instruction Type:Patient Education Patient Instructions Indication:Obstructive sleep apnea, adult Start:07-Dec-2018 Instruction Type:Provider Instructions for Treatment Patient Instructions Indication:[facility] Start:27-Aug-2018 Instruction Type:Provider Instructions for Treatment How to access health informa tion online Indication:BMI 34.0-34.9,adult Start:27-Aug-2018 Instruction Type:Patient Education How to access health informa tion online - Detail Indication:BMI 34.0-34.9,adult Start:27-Aug-2018 Instruction Type:Patient Education Patient Instructions Indication:BMI 34.0-34.9,adult Start:27-Aug-2018 Instruction Type:Provider Instructions for Treatment Patient Instructions Indication:Diabetes mellitus Start:27-Nov-2012 Instruction Type:Provider Instructions for Treatment Patient Instructions Indication:Diabetes mellitus Start:18-Jul-2012 Instruction Type:Provider Instructions for Treatment Name Dates Details [facility] exam : Patien t Instructions Indication:[facility] BMI 34.0-34.9,adult : How to access health information online Indication:BMI 34.0-34.9,adult BMI 34.0-34.9,adult : How to access health information online - Detail Indication:BMI 34.0-34.9,adult BMI 34.0-34.9,adult : Patien t Instructions Indication:BMI 34.0-34.9,adult Diabetes mellitus : Patient Instructions Indication:Diabetes mellitus Name Dates Details How to access health informa tion online Indication:[facility] Start:07-Apr-2020 Instruction Type:Patient Education How to access health informa tion online - Detail Indication:[facility] Start:07-Apr-2020 Instruction Type:Patient Education Patient Instructions Indication:[facility] Start:07-Apr-2020 Instruction Type:Provider Instructions for Treatment How to access health informa tion online Indication:Mixed hyperlipidemia Start:09-Dec-2019 Instruction Type:Patient Education How to access health informa tion online - Detail Indication:Mixed hyperlipidemia Start:09-Dec-2019 Instruction Type:Patient Education Patient Instructions Indication:Mixed hyperlipidemia Start:09-Dec-2019 Instruction Type:Provider Instructions for Treatment Patient Instructions Indication:Type 1 diabetes mellitus maturity onset Start:16-Aug-2019 Instruction Type:Provider Instructions for Treatment How to access health informa tion online Indication:Type 1 diabetes mellitus maturity onset Start:13-May-2019 Instruction Type:Patient Education How to access health informa tion online - Detail Indication:Type 1 diabetes mellitus maturity onset Start:13-May-2019 Instruction Type:Patient Education Patient Instructions Indication:Type 1 diabetes mellitus maturity onset Start:13-May-2019 Instruction Type:Provider Instructions for Treatment Patient Instructions Indication:Elevated high sensitivity C-reactive protein Start:07-Dec-2018 Instruction Type:Provider Instructions for Treatment How to access health informa tion online Indication:Obstructive sleep apnea, adult Start:07-Dec-2018 Instruction Type:Patient Education How to access health informa tion online - Detail Indication:Obstructive sleep apnea, adult Start:07-Dec-2018 Instruction Type:Patient Education Patient Instructions Indication:Obstructive sleep apnea, adult Start:07-Dec-2018 Instruction Type:Provider Instructions for Treatment Patient Instructions Indication:[facility] Start:27-Aug-2018 Instruction Type:Provider Instructions for Treatment How to access health informa tion online Indication:BMI 34.0-34.9,adult Start:27-Aug-2018 Instruction Type:Patient Education How to access health informa tion online - Detail Indication:BMI 34.0-34.9,adult Start:27-Aug-2018 Instruction Type:Patient Education Patient Instructions Indication:BMI 34.0-34.9,adult Start:27-Aug-2018 Instruction Type:Provider Instructions for Treatment Patient Instructions Indication:Diabetes mellitus Start:27-Nov-2012 Instruction Type:Provider Instructions for Treatment Patient Instructions Indication:Diabetes mellitus Start:18-Jul-2012 Instruction Type:Provider Instructions for Treatment Name Dates Details How to access health informa tion online Indication:[facility] Start:07-Apr-2020 Instruction Type:Patient Education How to access health informa tion online - Detail Indication:[facility] Start:07-Apr-2020 Instruction Type:Patient Education Patient Instructions Indication:[facility] Start:07-Apr-2020 Instruction Type:Provider Instructions for Treatment How to access health informa tion online Indication:Mixed hyperlipidemia Start:09-Dec-2019 Instruction Type:Patient Education How to access health informa tion online - Detail Indication:Mixed hyperlipidemia Start:09-Dec-2019 Instruction Type:Patient Education Patient Instructions Indication:Mixed hyperlipidemia Start:09-Dec-2019 Instruction Type:Provider Instructions for Treatment Patient Instructions Indication:Type 1 diabetes mellitus maturity onset Start:16-Aug-2019 Instruction Type:Provider Instructions for Treatment How to access health informa tion online Indication:Type 1 diabetes mellitus maturity onset Start:13-May-2019 Instruction Type:Patient Education How to access health informa tion online - Detail Indication:Type 1 diabetes mellitus maturity onset Start:13-May-2019 Instruction Type:Patient Education Patient Instructions Indication:Type 1 diabetes mellitus maturity onset Start:13-May-2019 Instruction Type:Provider Instructions for Treatment Patient Instructions Indication:Elevated high sensitivity C-reactive protein Start:07-Dec-2018 Instruction Type:Provider Instructions for Treatment How to access health informa tion online Indication:Obstructive sleep apnea, adult Start:07-Dec-2018 Instruction Type:Patient Education How to access health informa tion online - Detail Indication:Obstructive sleep apnea, adult Start:07-Dec-2018 Instruction Type:Patient Education Patient Instructions Indication:Obstructive sleep apnea, adult Start:07-Dec-2018 Instruction Type:Provider Instructions for Treatment Patient Instructions Indication:[facility] Start:27-Aug-2018 Instruction Type:Provider Instructions for Treatment How to access health informa tion online Indication:BMI 34.0-34.9,adult Start:27-Aug-2018 Instruction Type:Patient Education How to access health informa tion online - Detail Indication:BMI 34.0-34.9,adult Start:27-Aug-2018 Instruction Type:Patient Education Patient Instructions Indication:BMI 34.0-34.9,adult Start:27-Aug-2018 Instruction Type:Provider Instructions for Treatment Patient Instructions Indication:Diabetes mellitus Start:27-Nov-2012 Instruction Type:Provider Instructions for Treatment Patient Instructions Indication:Diabetes mellitus Start:18-Jul-2012 Instruction Type:Provider Instructions for Treatment Name Dates Details Patient Instructions Indication:Mixed hyperlipidemia Start:15-Jul-2020 Instruction Type:Provider Instructions for Treatment How to Access Health Informa tion Online using Patient Portal and [employer] Apps Indication:Mixed hyperlipidemia Start:15-Jul-2020 Instruction Type:Patient Education How to access health informa tion online Indication:[facility] Start:07-Apr-2020 Instruction Type:Patient Education How to access health informa tion online - Detail Indication:[facility] Start:07-Apr-2020 Instruction Type:Patient Education Patient Instructions Indication:[facility] Start:07-Apr-2020 Instruction Type:Provider Instructions for Treatment How to access health informa tion online Indication:Mixed hyperlipidemia Start:09-Dec-2019 Instruction Type:Patient Education How to access health informa tion online - Detail Indication:Mixed hyperlipidemia Start:09-Dec-2019 Instruction Type:Patient Education Patient Instructions Indication:Mixed hyperlipidemia Start:09-Dec-2019 Instruction Type:Provider Instructions for Treatment Patient Instructions Indication:Type 1 diabetes mellitus maturity onset Start:16-Aug-2019 Instruction Type:Provider Instructions for Treatment How to access health informa tion online Indication:Type 1 diabetes mellitus maturity onset Start:13-May-2019 Instruction Type:Patient Education How to access health informa tion online - Detail Indication:Type 1 diabetes mellitus maturity onset Start:13-May-2019 Instruction Type:Patient Education Patient Instructions Indication:Type 1 diabetes mellitus maturity onset Start:13-May-2019 Instruction Type:Provider Instructions for Treatment Patient Instructions Indication:Elevated high sensitivity C-reactive protein Start:07-Dec-2018 Instruction Type:Provider Instructions for Treatment How to access health informa tion online Indication:Obstructive sleep apnea, adult Start:07-Dec-2018 Instruction Type:Patient Education How to access health informa tion online - Detail Indication:Obstructive sleep apnea, adult Start:07-Dec-2018 Instruction Type:Patient Education Patient Instructions Indication:Obstructive sleep apnea, adult Start:07-Dec-2018 Instruction Type:Provider Instructions for Treatment Patient Instructions Indication:[facility] exam Start:27-Aug-2018 Instruction Type:Provider Instructions for Treatment How to access health informa tion online Indication:BMI 34.0-34.9,adult Start:27-Aug-2018 Instruction Type:Patient Education How to access health informa tion online - Detail Indication:BMI 34.0-34.9,adult Start:27-Aug-2018 Instruction Type:Patient Education Patient Instructions Indication:BMI 34.0-34.9,adult Start:27-Aug-2018 Instruction Type:Provider Instructions for Treatment Patient Instructions Indication:Diabetes mellitus Start:27-Nov-2012 Instruction Type:Provider Instructions for Treatment Patient Instructions Indication:Diabetes mellitus Start:18-Jul-2012 Instruction Type:Provider Instructions for Treatment Name Dates Details Diabetes mellitus : Patient Instructions Indication:Diabetes mellitus Name Dates Details [facility] exam : Patien t Instructions Indication:[facility] BMI 34.0-34.9,adult : How to access health information online Indication:BMI 34.0-34.9,adult BMI 34.0-34.9,adult : How to access health information online - Detail Indication:BMI 34.0-34.9,adult BMI 34.0-34.9,adult : Patien t Instructions Indication:BMI 34.0-34.9,adult Diabetes mellitus : Patient Instructions Indication:Diabetes mellitus Summary Purpose Advance Directives No Advanced Directives Records FoundNo Advanced Directives Records FoundNo Advanced Directives Records FoundNo Advanced Directives Records FoundNo Advanced Directives Records Found Reason for Referral Specialty Diagnoses / Procedures Referred By Contac t Referred To Contact CT IMAGING Diagnoses Cerebral hemorrhage (HCC) Procedures CT BRAIN WO IVCON CT HEAD/BRAIN W/O CONTRAST MATERIAL Joslyn Turcios MD [address] [place] [address] Ct Imaging Referral ID Status Reason Start Date Expiration Date Visits Requested Visits Authorized [id number] Pending Review Auto-Generat ed Referral 03/14/2023 03/22/2024 1 1 Chief Complaint and Reason for Visit Chief Complaint 6 M FU Reason for Visit Diabetes mellitus ty pe 1 Mixed hyperlipidemia Obesity Presence of insulin pump Chief Complaint Admit Date 6 M FU February 28, 2025 7: 59am Additional Source Comments (unrecognized sect ion and content) No Status Records FoundNo Status Records FoundNo Status Records FoundNo Status Records FoundNo Status Records Found INFORMATION SOURCE (unrecogn ized section and content) DATE CREATED AUTHOR 08/29/2022 [facility] DATE CREATED AUTHOR AUTHOR'S ORGANIZ ATION 03/14/2023 [facility] DATE CREATED AUTHOR AUTHOR'S ORGANIZ ATION 03/24/2023 [facility] DATE CREATED AUTHOR AUTHOR'S ORGANIZ ATION 12/08/2024 [facility] DATE CREATED AUTHOR AUTHOR'S ORGANIZ ATION [facility] Source Comments (unrecognize d section and content) In the event this informatio n is protected by the Federal Confidentiality of Alcohol and Drug Abuse Patient Records regulations: The Federal rules restrict any use of the information to criminally investigate or prosecute any alcohol or drug abuse patient.[facility] the event this information is protected by the Federal Confidentiality of Alcohol and Drug Abuse Patient Records regulations: The Federal rules restrict any use of the information to criminally investigate or prosecute any alcohol or drug abuse patient.[facility] Hospital[facility] the event this information is protected by the Federal Confidentiality of Alcohol and Drug Abuse Patient Records regulations: The Federal rules restrict any use of the information to criminally investigate or prosecute any alcohol or drug abuse patient.[facility] Hospital[facility] the event this information is protected by the Federal Confidentiality of Alcohol and Drug Abuse Patient Records regulations: The Federal rules restrict any use of the information to criminally investigate or prosecute any alcohol or drug abuse patient.[facility] the event this information is protected by the Federal Confidentiality of Alcohol and Drug Abuse Patient Records regulations: The Federal rules restrict any use of the information to criminally investigate or prosecute any alcohol or drug abuse patient.[facility] Hospital[facility] the event this information is protected by the Federal Confidentiality of Alcohol and Drug Abuse Patient Records regulations: The Federal rules restrict any use of the information to criminally investigate or prosecute any alcohol or drug abuse patient.[facility] Reason for Visit (unrecogniz ed section and content) Reason Comments Orders Reason Comments Appointment Reason Comments 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 No previous treatment Care Teams (unrecognized sec tion and content) Cushion Maker Hand Relationship Specialty Start Date End Date [facility] Internal [address] [place] [id number] PCP - General 02/19/23 Cushion Maker Hand Relationship Specialty Start Date End Date [facility] Internal [address] [place] [address] [id number] PCP - General 02/19/23 Cushion Maker Hand Relationship Specialty Start Date End Date [facility] Internal [address] [place] [id number] PCP - General 02/19/23 Cushion Maker Hand Relationship Specialty Start Date End Date [facility] Internal [address] [place] [id number] PCP - General 02/19/23 Team Status: Active Member Role Status Dates Dr. Tawanna Pickard DO Primary Care Provider Active Team Status: Inactive Member Role Status Dates Dr. Tawanna Pickard DO Primary Care Provider, Referring P rovider Active Dr. Landen Evangelista MD Attending Provider Active Team Status: Inactive Member Role Status Dates Dr. Tawanna Pickard DO Primary Care Provider Active Dr. Landen Evangelista MD Attending Provider, Referring Provi kayce Active Cushion Maker Hand Relationship Specialty Start Date End Date [facility] [address] [place], [place] [id number] PCP - General 02/19/23 Team Status: Active Member Role/Relationship Status Dates Dr. Tawanna Pickard DO Primary Care Provider Active Team Status: Inactive Member Role/Relationship Status Dates Dr. Tawanna Pickard DO Primary Care Provider Active Start: February 28, 2025 End: February 28, 2025 Dr. Tawanna Pickard DO Referring Provider Active St art: February 28, 2025 End: February 28, 2025 Dr. Landen Evangelista MD Attending Provider Active Sta rt: February 28, 2025 End: February 28, 2025 Goals (unrecognized section and content) Goals may be documented in a n alternate sectionGoals may be documented in an alternate section FOR RECORDS PERTAINING TO PATIENTS WHO ARE OR HAVE BEEN ENROLLED IN A CHEMICAL DEPENDENCY/SUBSTANCEABUSE PROGRAM, SOME INFORMATION MAY BE OMITTED. This clinical summary was aggregated from multiple sources. Caution should be exercised in using it in the provision of clinical care. This summary normalizes information from multiple sources, and as a consequence, information in this document may materially change the coding, format and clinical context of patient data. In addition, data may be omitted in some cases. CLINICAL DECISIONS SHOULD BE BASED ON THE PRIMARY CLINICAL RECORDS. [employer] provides no warranty or guarantee of the accuracy or completeness of information in this document.
[2025-06-04] MEDS: Lactated Ringers 1,000 ML 15 ML IV (06:48)
--- NOTE | 2025-06-04 07:06 | PCM.PRE.AN2 ---
ASA Classification* ASA Classification ASA Classification: 2 (T1DM) Assessment & Plan Anesthesia* Anesthesia Assessment Anesthesia Assessment: Discussed sedation and/or anesthesia options, risks, benefits, and alternatives with patient/parents/legal guardian/POA. Questions invited. The patient/parents/legal guardian/POA seems to understand and agrees to proceed with anesthesia plan. Reviewed the physical assessment, medical history, allergy history and patient home medications list prior to surgery/procedure/anesthetic and documented any changes. Performed airway and anesthesia risk assessments. Patient reports having a protein shake at 4 AM, and walked in drinking black coffee (no cream) in preop. I had a thorough discussion with the patient regarding the risks of aspiration. I discussed the case with Dr. Gibbons, and we both agreed it would be best for the patient to be last for the day to ensure NPO status. Patient & family is in agreement. Anesthesia Type Anesthesia Type: General History Source History Obtained from:: Patient and Chart Anesthesia Focused Assessment* Temperature: 98.3 F Pulse Rate: 85 Blood Pressure: 131/81 Respiratory Rate: 18 Pulse Ox: 98 Oxygen Delivery Method: Room Air Airway Assessment Mouth opens: >3 cm Mallampati Score: II Teeth Condition: Intact Neck Range of motion (ROM): Full ROM Labs Anesthesia Preop lab: CBC WBC, (4.4-11.0) 9.9 K/mm3 03/19/21, 17:30 RBC, (4.6-6.2) 5.43 M/mm3 03/19/21, 17:30 Hgb, (13.0-16.5) 16.9 g/dL H 03/19/21, 17:30 Hct, (40-54) 50.2 % 03/19/21, 17:30 Plt Count, (150-450) 158 K/mm3 03/19/21, 17:30 CHEMISTRY Potassium, (3.5-5.1) 3.6 mmol/L 03/19/21, 17:30 Sodium, (136-145) 127 mmol/L L 03/19/21, 17:30 BUN, (7-18) 12 mg/dL 03/19/21, 17:30 Creatinine, (0.70-1.30) 1.22 mg/dL 03/19/21, 17:30 Glucose, (74-106) 333 mg/dL H 03/19/21, 17:30 TSH, (0.358-3.74) 2.86 uIU/mL 07/08/19, 09:25 COAG Pre-Assessment Diagnosis/Proposed Procedure Planned Operative Procedure(s): LEFT ENDOSCOPIC CARPAL TUNNEL RELEASE Anesthesia History Anesthesia History - director of collections: Anesthesia History - director of collections Hx Hospitalization No 05/26/25 11:21 Any Problems With Anesthesia No 05/26/25 11:21 Cholinesterase deficiency No 05/26/25 11:21 You/Your Family Experience No 05/26/25 11:21 fever (hyperthermia) with Relationship Recent Exposure to Contagious No 06/04/25 06:35 Disease Does patient have nerve No 05/26/25 11:21 stimulator Patient instructed to have device shut off --Does patient have Pacemaker No 06/04/25 06:35 or ICD? When Was Last Pacemaker Check QUESTION #4 FULL TEXT: You/Your Family Experience fever (hyperthermia) with Anesthesia Last Oral Intake Last Oral intake: Last Oral Intake NPO since 06:00 06/04/25 06:35 Meds taken in AM with sips of No 06/04/25 06:35 water? Meds patient instructed to take am of surgery PONV PONV - director of collections: PONV - director of collections Female No 05/26/25 11:21 HX of Motion Sickness No 05/26/25 11:21 HX of N/V After Surgery No 05/26/25 11:21 Non-Smoker Yes 05/26/25 11:21 Duration of Surgery greater No 05/26/25 11:21 than 60 minutes Number of Risk Factors 1 05/26/25 11:21 PONV Score Low Risk 05/26/25 11:21 Height & Weight Height & Weight: Anesthesia: Height & Weight Height 5 ft 7 in 06/04/25 06:35 Weight: 90 kg 06/04/25 06:35 Body Mass Index (BMI) 31.1 06/04/25 06:35 Respiratory Assessment Respiratory Assessment - director of collections: Respiratory Tract Infection Hx - director of collections Hx Respiratory Tract Infection No 05/26/25 11:21 STOP Sleep Apnea STOP Sleep Apnea - director of collections: STOP Sleep Apnea - director of collections Hx Hypertension No 05/26/25 11:21 Hx Sleep Apnea Yes 05/26/25 11:21 CPAP Yes 05/26/25 11:21 BIPAP No 05/26/25 11:21 Do you snore loudly (louder than talking or can be heard Do you often feel tired/ fatigued/ sleepy during daytime? Has anyone observed you stop breathing during sleep? STOP Results Positive 05/26/25 11:21 QUESTION #5 FULL TEXT : Do you snore loudly (louder than talking or can be heard through closed doors)? Tobacco Use History Tobacco Use History - director of collections: Tobacco Use History - director of collections Tobacco Use Smoking Status Never smoker 05/26/25 11:21 Hx Tobacco Use No 05/26/25 11:21 Years Smoking Packs Smoked per Day Smoking Cessation Date was within the last 15 years Hx Smoking Cessation Date Hx Smoking Cessation Counseling Hematologic Medial History Hematologic Hx - director of collections: Hematologic Medical Hx - director of cardiopulmonary services Hx of Blood Transfusion No 05/26/25 11:21 Hx of Transfusion in last 3 No 05/26/25 11:21 Months Date of Last Transfusion (if within last 3 months) Ever experience any problems No 05/26/25 11:21 with transfusion(s)? Specify any problems Hx of Preganancy in last 3 N/A 05/26/25 11:21 Months Nurse Filling Out Transfusion DSCHRIBER 05/26/25 11:21 & Questions: Date: 05/26/25 05/26/25 11:21 Time: 11:22 05/26/25 11:21 Patient unable to answer at this time (ie. confused, unrespo /Reproduction History /Reproductive History - director of collections: /Reproductive Hx- director of collections Hx Now No 05/26/25 11:21 Gestational Age (in weeks): EDC: Hx Hx Para Hx Section SAB No 05/26/25 11:21 Does the father of the baby or his family experience fever w Father of the baby Malignant Hypertension history comment Active Medications Active Medications: Current Medications Generic Name Dose Route Start Last Admin Trade Name Freq PRN Reason Stop Dose Admin Cefazolin Sodium 2 gm/ Sodium 110 mls @ 200 mls/hr 06/04/25 07:00 Chloride IV 06/04/25 07:32 INTRAOP ONE Lactated Ringer's 1,000 mls @ 15 mls/hr 06/04/25 06:15 06/04/25 06:48 IV 15 mls/hr .Q48H BRANDON Administration [facility] Medical History (Updated 05/26/25 @ 11:26 by Ashley Phillips) Wears contact lenses Alcohol use Insulin dependent diabetes mellitus Injury of head and neck Dietary restriction Non-smoker CPAP (continuous positive airway pressure) dependence Bilateral carpal tunnel syndrome Obesity High cholesterol Home Medications ?Medication ?Instructions ?Recorded ?Last Taken ?Type cholecalciferol (vitamin D3) 125 5,000 unit PO DAILY 06/14/19 06/03/25 History mcg (5,000 unit) disintegrating tablet coenzyme Q10 10 mg capsule (Co 10 mg PO DAILY 11/19/20 06/03/25 History Q-10) rosuvastatin 20 mg tablet 40 mg PO QHS 04/19/24 06/03/25 History insulin pump cart,auto,BT,G6/7 #30 ea 12/19/24 Unknown Rx (Omnipod 5 G6-G7 Pods (Gen 5) subcutaneous cartridge) blood-glucose sensor (Dexcom G7 #9 ea 01/13/25 Unknown Rx Sensor device) tirzepatide 10 mg/0.5 mL 10 mg subcut TU 05/26/25 05/27/25 History subcutaneous pen injector (Mounjaro) Allergy/AdvReac Type Severity Reaction Status Date / Time No Known Allergies Allergy Verified 06/04/25 06:34 Family History Other Diabetes High cholesterol Surgical History (Updated 05/26/25 @ 11:26 by Ashley Phillips) Hx of colonoscopy Social History Smoking Status: Never smoker alcohol intake: current alcohol intake frequency: a few times a month Alcohol type: beer Review of Systems (Anesthesia) ROS Narrative System reviewed and no additional complaints, except as documented. Physical Exam Const alert, oriented x3 and average body habitus Resp normal respiratory effort, normal air movement and clear to auscultation bilaterally Cardio regular rate, regular rhythm and no murmurs; Negative for diaphoretic
--- NOTE | 2025-06-04 07:10 | PCM.HP.STD ---
HPI - General HPI Narrative HUEY CARRERA, is a 49 M who presents for left endoscopic carpal tunnel release. No changes to history and physical exam. Left wrist marked. Risks alternatives benefits discussed as well as postoperative instructions typically do not prescribe narcotics after this as the patient to be in a brace for 2 weeks postoperatively. Unfortunately he did have a protein shake and a coffee this morning so he will be delayed till later in the day he understands to continue fasting nothing by mouth and okay to proceed. MR#: [id number] Acct: [id number] Name: HUEY CARRERA Rep #: [id number] : 1975 Provider: Dr. Troy Gibbons MD Age/Sex: 49/M Location: [facility] [place] Status: Signed Intake Vital Signs 02/28/2507:59 05/09/2508:31 Height 5 ft 4 in 5 ft 4 in Weight: 203 lb 195 lb BMI 34.8 33.5 BP 136/74 H Blood Pressure Location Lt brachial Position Sitting Pulse 58 L Pulse Source Monitor Pulse Oximetry (%) 97 Oxygen Delivery Method room air Intake Visit Reasons: BILATERAL HANDS Chief Complaint: Bilateral hands numbness Accompanied by: Self Is patient in pain?: No Allergies No Known Allergies Allergy (Verified 05/09/25 08:34) Medications ?Medication ?Instructions ?Recorded ?Confirmed ?Type cholecalciferol (vitamin D3) 125 5,000 unit PO DAILY 06/14/19 05/09/25 History mcg (5,000 unit) disintegrating tablet coenzyme Q10 10 mg capsule (Co 10 mg PO ONCE 11/19/20 05/09/25 History Q-10) rosuvastatin 20 mg tablet 40 mg PO DAILY 04/19/24 05/09/25 History Humalog KwikPen Insulin 200 200 unit subcut QDAY #30 mL 08/30/24 05/09/25 Rx unit/mL (3 mL) subcutaneous (insulin lispro) tirzepatide 5 mg/0.5 mL 5 mg subcut QWEEK 08/30/24 05/09/25 History subcutaneous pen injector (Mounjaro) insulin pump cartridge,auto #1 ea 11/19/24 05/09/25 Rx dose,BT,G6/G7 with controller subcutaneous (Omnipod 5 G6-G7 Intro Kit(Gen 5) subcutaneous cartridge and controller) insulin pump cart,auto,BT,G6/7 #30 ea 12/19/24 05/09/25 Rx (Omnipod 5 G6-G7 Pods (Gen 5) subcutaneous cartridge) blood-glucose sensor (Dexcom G7 #9 ea 01/13/25 05/09/25 Rx Sensor device) Have you fallen in the past year?: No [facility] Medical History (Updated 05/09/25 @ 08:39 by Troy Gibbons MD) Bilateral carpal tunnel syndrome Obesity Diabetes mellitus type 1 High cholesterol Family History Other Diabetes High cholesterol Social History Smoking Status: Never smoker alcohol intake: current alcohol intake frequency: a few times a month Alcohol type: beer HPI BILATERAL HANDS Details: This documentation accurately reflects the service provided and the decisions made by me, Dr. Troy Gibbons MD 05/09/2531. Part of today?s visit was documented by [ ], acting as scribe. HUEY CARRERA is a 49 year old M here today for bilateral carpal tunnel syndrome. Already had the nerve studies. D. [facility]. 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 thumb index and middle going numb. 2 years. getting worse. has to shake it out. worse with driving, bike riding. tx - steroid injection. didn't help. on the left. Ortho Exam General General: Yes no acute distress Neurologic: Yes alert and Yes oriented x3 Psychologic: Yes reasonable and appropriate Right Wrist/Hand Skin/Wound: Yes CDI, No Swelling, No Ecchymosis, Yes nail intact and Yes capillary refill normal Right Wrist: Yes ROM-Extension 0-60, ROM-Flexion 0-80, ROM-Pronation 0-80 and ROM-Supination 0-90; No Durken's Test, Tinel's, Phalen's, Thenar Atrophy or Hypothenar Atrophy Motor: EPL: 5, FDP-2: 5, 1st Dorsal Interosseous: 5 and APB: 5 Sensation: Radial: I, Ulnar: I and Median: I WRIST: neg tinels at the elbows both sides, POS scratch collapse test both sides. Left Wrist/Hand Skin/Wound: Yes CDI, No Swelling, No Ecchymosis, Yes nail intact, Yes capillary refill normal and No erythema Left Wrist: Yes ROM-Extension 0-60, Yes ROM-Flexion 0-80, Yes ROM-Pronation 0-80 and Yes ROM-Supination 0-90; No Durken's Test, No Tinel's, No Phalen's, No Thenar Atrophy and No Hypothenar Atrophy Motor: EPL: 5, FDP-2: 5, 1st Dorsal Interosseous: 5 and APB: 5 Sensation: Radial: I, Ulnar: I and Median: I Supplemental Info [facility] Pulmonary Services/Neurology [address] [place] [address] MR#: [id number] Acct: [id number] Name: HUEY CARRERA Rep #: [id number] : 1975 49 From: Trang Sahni MD Referring Dr: Tawanna Pickard DO Status: REG CLI Location: PSN Date: 05/06/25 Sex: M C NCS and/or EMG Patient Report Ordering Doctor: Tawanna Pickard DATE OF SERVICE: 05/06/25 Clinical Summary: 49 year old male patient with symptoms of numbness in both hands. Nerve Conduction Studies Summary: Nerve conduction studies were performed in the bilateral upper extremities. The median-D2 SNAP distal latency was prolonged bilaterally. The right median-APB CMAP distal latency was prolonged. The median motor conduction velocity was reduced bilaterally in the forearm segment. Needle Examination Summary: Needle examination of the bilateral upper extremities demonstrated a higher proportion of motor unit action potentials with reduced recruitment, increased amplitude, increased duration, and polyphasia in the bilateral abductor pollicis brevis muscles. Impression: This is an abnormal study. 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 There is no electrodiagnostic evidence of right/left ulnar mononeuropathies or cervical radiculopathies. Coding Level of Care Code Off vis,new,level 4 Diagnoses Bilateral carpal tunnel syndrome G56.03 Assessment and Plan Assessment and Plan (1) Bilateral carpal tunnel syndrome: Status: Acute Plan: 49-year-old man with bilateral carpal tunnel syndrome. This is severe in nature and the patient has type diabetes obesity this are poor prognostic factors for this condition and may impact surgery with higher risk of infection and lower chance of significant improvement. Pros and cons risks benefits of open vs endoscopic discusses. Wishes to proceed with left endoscopic carpal tunnel release. Pros and cons risks and benefits were discussed with the patient including but not limited to infection, pain, stiffness, bleeding, damage to surrounding structures, neurovascular injury, recurrence or retear, failure or wear of hardware or fixation, instability, fracture, deep vein thrombosis and pulmonary embolism, anesthetic risks, , patient dissatisfaction, need for further surgery and other risks. Patient understood and wished to proceed with surgery, and signed the informed consent documentation. Carpal Tunnel Syndrome (CTS) occurs when the median nerve, which runs through the wrist, becomes compressed. Treatment options vary based on the severity of the condition: Non-Surgical Treatments: Wrist Splinting: Wearing a splint at night to keep the wrist in a neutral position. Activity Modification: Avoiding repetitive wrist movements or adjusting work habits. Physical Therapy: Exercises to improve wrist and hand function. Medications: Anti-inflammatory drugs (NSAIDs) or corticosteroid injections to reduce swelling and pain. Surgical Treatment: Carpal Tunnel Release Surgery: A procedure where the ligament pressing on the median nerve is cut to relieve pressure. This is considered when non-surgical treatments are ineffective. Options are min-open or endoscopic. Clinical Quality Measures Falls Risk Screening/Assistive Devices Have you fallen in the past year?: No [facility] Medical History (Updated 05/26/25 @ 11:26 by Ashley Phillips) Wears contact lenses Alcohol use Insulin dependent diabetes mellitus Injury of head and neck Dietary restriction Non-smoker CPAP (continuous positive airway pressure) dependence Bilateral carpal tunnel syndrome Obesity High cholesterol Home Medications ?Medication ?Instructions ?Recorded ?Last Taken ?Type cholecalciferol (vitamin D3) 125 5,000 unit PO DAILY 06/14/19 06/03/25 History mcg (5,000 unit) disintegrating tablet coenzyme Q10 10 mg capsule (Co 10 mg PO DAILY 11/19/20 06/03/25 History Q-10) rosuvastatin 20 mg tablet 40 mg PO QHS 04/19/24 06/03/25 History insulin pump cart,auto,BT,G6/7 #30 ea 12/19/24 Unknown Rx (Omnipod 5 G6-G7 Pods (Gen 5) subcutaneous cartridge) blood-glucose sensor (Dexcom G7 #9 ea 01/13/25 Unknown Rx Sensor device) tirzepatide 10 mg/0.5 mL 10 mg subcut TU 05/26/25 05/27/25 History subcutaneous pen injector (Yadira) Allergy/AdvReac Type Severity Reaction Status Date / Time No Known Allergies Allergy Verified 06/04/25 06:34 Family History Other Diabetes High cholesterol Surgical History (Updated 05/26/25 @ 11:26 by Ashley Phillips) Hx of colonoscopy Social History Smoking Status: Never smoker alcohol intake: current alcohol intake frequency: a few times a month Alcohol type: beer Vital Signs Vital Signs Vital Signs: 06/04/25 06:35 06/04/25 06:35 06/04/25 06:35 Temperature 98.3 F Temperature Source Temporal Pulse Rate 85 Respiratory Rate 18 Respiratory Pattern Normal Blood Pressure 131/81 H Blood Pressure Mean 97 Blood Pressure Source Monitor Blood Pressure Position Sitting Blood Pressure Location Left Arm Baseline BP 131/81 Pulse Ox 98 Oxygen Delivery Method Room Air 06/04/25 07:08 Temperature 98.3 F Temperature Source Pulse Rate 85 Respiratory Rate 18 Respiratory Pattern Blood Pressure 131/81 H Blood Pressure Mean Blood Pressure Source Blood Pressure Position Blood Pressure Location Baseline BP Pulse Ox 98 Oxygen Delivery Method Room Air Weight Weight: 198 lb 6.656 oz Body Mass Index (BMI) 31.1
[2025-06-04] MEDS: Cefazolin 1 GM/5 ML Vial 2 GM IV (13:10)
[2025-06-04] MEDS: fentaNYL 100 MCG/2 ML Ampul IV (13:16)
[2025-06-04] MEDS: Lidocaine 1% (5 ml sdv) 5 ML Vial IV (13:16)
--- NOTE | 2025-06-04 13:38 | PCM.OPRPT ---
Procedures Musculoskeletal [id number]-29xxx: Other Procedure See Report Operative Report (Standard) Operative Information Date of Procedure: 06/04/25 Pre-Operative Diagnosis: L CTS Post-Operative Diagnosis: same Surgery/Procedure Performed: L ECTR terminal system operator: No Type of Anesthesia: Local MAC and Local RN Documented Start/Stop Times: Operation Date: 06/04/25 07:30 Case Time Into Pre-Op 06/04/25 06:08 Anesthesia Start 06/04/25 13:10 Into Room 06/04/25 13:10 Procedure Start 06/04/25 13:25 Procedure End 06/04/25 13:38 Anesthesia End 06/04/25 13:43 Out of Room 06/04/25 13:43 Procedure Start Time: 13:25 Procedure Stop Time: 13:38 Select all DRAINS/GRAFTS/IMPLANTS that apply: None Estimated Blood Loss: 5 Specimen collected: No Description of surgery: Patient brought to the operating room theater. Placed supine upon on the table. 2g iv ancef before the start of the case. MAC/LMA induced by the anesthetic team. Patient placed supine on the table all bony prominences padded. SCDs on the legs. Hand table used left side. Tourniquet applied properly padded to the upper extremity. Upper extremity prepped and draped in the usual sterile fashion with chlorhexidine-based prep solution allowing over 3 minutes drying time prior to draping. Preoperative timeout performed to confirm the site patient and the surgery. Began by elevating the limb and inflated the tourniquet to 250 mmHg. I used the [employer] center line endoscopic carpal tunnel kit technique. 4cc 0.25% bupivicaine for local anesthesia. I made a transverse 2 cm incision in line with the? transverse wrist crease.? This was in line with the fourth digit.? I carried the dissection down through skin and subcutaneous tissue achieved meticulous hemostasis. Just ulnar to palmaris tendon.? I incised the antebrachial fascia, in a U shape.? I passed sequential dilators into the carpal tunnel along the radial border of the Guyon's canal aiming for the fourth digit with the wrist in extension.? I used a synovial elevator to identify the transverse fibers of the transverse carpal tunnel ligament.? Passed the scope into the carpal tunnel. Once I had identified the full proximal and distal extent of the ligament I fully released the ligament under direct visualization by deploying the blade and slowly withdrawing the scope made sequential passes until I no longer felt tension as well as the entire extent of the ligament was released under direct visualization.? Sounded the tunnel with ignacio tenotomy scissors, complete release, no bands. Nerve visualized and protected. Arthroscope light was more visible through the skin. More room for the large dilator. Release the forearm fascia also proximal. Pictures taken and saved. Wounds thoroughly irrigated.? Tourniquet let down prior to end of the case and meticulous hemostasis achieved.? Thorough irrigation.? ? Incisions closed with 3-0 ethilon, horizontal mattress. ?Then adaptic 4x4 gauze and tape. Patient woken up,? transferred off the operating room table and taken to postanesthetic care unit in stable condition. All sponge needle instrument counts were correct no complications.?Plan for the patient to be discharged home according to day surgery criteria when they are comfortable. Follow-up in the office in 2 days time. Gentle ROM finger and elbow no heavy lifting. Recommend wrist brace 2 weeks. cpt 26535 Surgical Findings: as above Complications Complications: No Admit VTE Documentation VTE Present on Admission: No VTE Mechan Device Prophylaxis: SCD's VTE Pharm Prophylaxis ordered?: No Reason prophylaxis not ordered: Treatment Not Indicated
--- NOTE | 2025-06-04 13:41 | EX.PCM.DISCH ---
Discharge Instructions Diet Discharge Diet: No restrictions Activity Discharge Activity: Return to Normal Activity Ice area for (Minutes): 10 Lifting Restrictions: wear wrist brace 2 weeks, ok to move elbow and fingers. Keep extremity elevated above heart level: Operative Extremity Dressing / Incision Call your doctor if your incision/area has: Continuous Slow Oozing, Sudden Increased Bleeding, Increased Pain/ Swelling, Increased Redness, Foul Smelling Discharge and Swelling at the incision site Call your doctor if you observe: Fever of 101 or Higher, Coldness, Increased Pain and Numbness or Tingling Change Dressing in: leave in place till F/U Cleanse incision/area with: Do not get Incision Wet Additional Dressing/Incision Instructions:: ok to change dressing POD 1-2, but keep covered. Follow Up Care Please Follow Up With: Troy Gibbons MD When: within 2 weeks Test Results: Test results from this visit will be discussed in further detail at your follow-up appointment, if applicable. Discharge Plan Admission Attending Provider: Troy Gibbons Primary Care Provider: Tawanna Pickard Instructions Patient Instructions: Carpal Tunnel Release Surgery Print Language: Estonian Discharge Orders/Prescriptions Prescriptions: No Action cholecalciferol (vitamin D3) 5,000 unit tablet,disintegrating 5,000 unit PO DAILY coenzyme Q10 [Co Q-10] 10 mg capsule 10 mg PO DAILY rosuvastatin 20 mg tablet 40 mg PO QHS Mounjaro 10 mg/0.5 mL pen injector 10 mg subcut TU (DME) Omnipod 5 G6-G7 Pods (Gen 5) Cartridge See Rx Instructions .Route Qty: 30 1RF Rx Instructions: change every 3 days (DME) Dexcom G7 Sensor Device See Rx Instructions .Route Qty: 9 1RF Rx Instructions: 1 sensor q 10 days Referrals / Follow Up: Tawanna Pickard DO [Primary Care Provider, Internal Medicine] Troy Gibbons MD [Med Staff - Active Staff, Orthopedics] Disposition Disposition (needs filled in before D/C Order can be placed): Home, Self Care
--- NOTE | 2025-06-04 13:49 | PCM.POST.ANE ---
Anesthesia: Postop Eval I Current Vital Signs Temperature: 98 F Pulse Rate: 71 Blood Pressure: 128/90 Respiratory Rate: 16 Pulse Ox: 97 Oxygen Delivery Method: Room Air Assessment Airway patent: Yes Spontaneous unlabored respirations: Yes Mental status: Awake and Calm nausea: No Vomiting: No Anesthesia Complication: No Fluid Hydration Crystalloid volume administer (ml): 500 Total IV fluid infused: 500 Progress Note Anesthesia document: Postop Eval 1 completed: Yes
--- NOTE | 2025-06-04 16:08 | POSTOPAN2_ITS ---
Anesthesia Postop Eval I Sum Postop Eval Completion status Anesthesia document: Postop Eval 1 completed: Yes Anesthesia Postop Eval I Summary Anesthesia Postop Eval I Summary: Anesthesia Postop Eval I: Assessment Summary Airway patent Yes 06/04/25 13:50 [employer].MDOT Spontaneous unlabored Yes 06/04/25 13:50 [employer].MDOT respirations Mental status Awake,Calm 06/04/25 13:50 [employer].MDOT nausea No 06/04/25 13:50 [employer].MDOT Vomiting No 06/04/25 13:50 [employer].MDOT Anesthesia Postop Eval I: Fluid Summary Crystalloid volume administer 500 06/04/25 13:50 [employer].MDOT (ml) Colloids volume administered ( ml) Blood Product volume administered (ml) Total IV fluid infused 500 06/04/25 13:50 [employer].MDOT Anesthesia Postop Eval I: Summary Notes Anesthesia Complication No 06/04/25 13:50 [employer].MDOT Anesthesia Complication Comment: Post-operative progress note Anesthesia: Postop Eval II Evaluation Mental status: Awake Pain Level: 0 nausea: No Vomiting: No Complications Anesthesia Complication: No
--- NOTE | 2025-06-04 16:08 | PCM.POSTANE2 ---
Anesthesia Postop Eval I Sum Postop Eval Completion status Anesthesia document: Postop Eval 1 completed: Yes Anesthesia Postop Eval I Summary Anesthesia Postop Eval I Summary: Anesthesia Postop Eval I: Assessment Summary Airway patent Yes 06/04/25 13:50 [email or web address] [email or web address].[email or web address] Spontaneous unlabored Yes 06/04/25 13:50 WHE[employer] T[employer].MDOT respirations Mental status Awake,Calm 06/04/25 13:50 WHE[email or web address].MDOT nausea No 06/04/25 13:50 WHE[employer] T[employer]ER.MDOT Vomiting No 06/04/25 13:50 WHEEL [email or web address].MDOT Anesthesia Postop Eval I: Fluid Summary Crystalloid volume administer 500 06/04/25 13:50 WHEEL T[employer]ER.MDOT (ml) Colloids volume administered ( ml) Blood Product volume administered (ml) Total IV fluid infused 500 06/04/25 13:50 WHEEL T[employer]ER.MDOT Anesthesia Postop Eval I: Summary Notes Anesthesia Complication No 06/04/25 13:50 WHEEL T[employer]ER.MDOT Anesthesia Complication Comment: Post-operative progress note Anesthesia: Postop Eval II Evaluation Mental status: Awake Pain Level: 0 nausea: No Vomiting: No Complications Anesthesia Complication: No
== END 2025-06-04 14:51 | disposition home or self-care (01) ==
LOC: SDC 06:04 → AC 06:05
PROVIDERS: PCP Internal Medicine; Referring Provider Orthopaedic Surgery Sports Medicine; Visit Provider Orthopaedic Surgery Sports Medicine
PROC: (CPT 29848; principal; 2025-06-04 07:15)
DX: G56.03 Carpal tunnel syndrome, bilateral upper limbs (principal); E10.9 Type 1 diabetes mellitus without complications; E78.00 Pure hypercholesterolemia, unspecified; Z79.85 Long-term (current) use of injectable non-insulin antidiabetic drugs; Z79.899 Other long term (current) drug therapy; Z96.41 Presence of insulin pump (external) (internal)
CPT/HCPCS: 29848; 01810; 82962; J2405

== ENCOUNTER → 2025-06-18 | Outpatient (CLI) | payer BC, SELFPAY ==
--- OUTSIDE RECORDS SUMMARY | 2025-06-18 16:14 | XMS RPT_ITS | CCD ---
Author Organization [facility] Care Team Providers Care Program Lead Name Role Phone Fast, Tawanna A Unavailable [facility] Unavailable Misael Swain Unavailable Manparisk, Eun Unavailable Unavailable Carmela Henning Unavailable Unavailable MessengerLinda Unavailable Unavailable Unavailable Unavailable SlaMarilee escamilla Unavailable Unavailable Manchak, Eun Unavailable Unavailable Esthela Briceño Unavailable Unavailable Sonia Ludwig Unavailable Kathie Harding Unavailable Unavailable Fast DO, Tawanna A Unavailable [facility] Unavailable Dr. Misael Swain DO Unavailable Manmarni COBURN, Eun Unavailable Unavailable Unavailable Unavailable Sarah Glass Unavailable [...] Fast DO, Dr. Stacy Referring Provider [phone] Dr. Landen Evangelista MD Attending Provider Fast, Tawanna Primary [facility] Unavailable Landen Evangelista [...] Start: 08-27-2018 take 1 capsule by [facility] once daily Vitamin D3 5000 UNIT Oral [...] : 20-Nov-2012 End : 14-Oct-2013 Inactive Insulin Customer Care Professional Cart,Aut,G6/7,Cntr (Omnipod 5 G6-G7 Intro Kt(Gen5)) cartridge (1 source) Start: 11-19-2024 Insulin Customer Care Professional Cart,Aut,G6/7,Cntr (Omnipod 5 G6-G7 Intro Kt(Gen5)) cartridge [...] 1 capsule by mouth every week Ergocalciferol 14383 UNIT Oral Capsule 1 Capsule q week [...] 14-Feb-2017 End : 27-Aug-2018 Inactive Comments: 3pills [id number], 2 pills po x3days, 1 po x3days with food in the amverbally called in-[facility] 02/13/17 Comment on above: 3pills [id number], 2 p ills po x3days, 1 po x3days with food in the amverbally called in-[facility] 02/13/17 take with food in am [...] about diet and ex andpotentially see a executive director- now seeing Landen Evangelista MD and has improving control- again discussed diet and ex in detail last a1c was 7 we talked about destini inhibitor as standard of care he will talk with his dm about it- set up executive director encourage compliance with diet and ex has [...] - take statin routinely 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 Troy rivero MD Age/Sex: 49/M Location[facility] Status: Signed Intake Vital Signs 02/28/25 07:59 [...] you fallen in the past year?: No [facility] Medical History (Updated 05/09/25 @ 08:39 by [...] tunnel syndrome. Already had the nerve studies. [facility]. [facility]. Climb around, move heavy equipment, fix high [...] Ulnar: I and Median: I Supplemental Info [facility] Pulmonary Services/Neurology [address] [place] [address] MR#: [id number] Acct: [id number] Name: FRANCISCO CRENSHAW Rep #: [id number] : 1975 49 From: Trang Sahni MD [...] bilateral up (more content not included)... Normal [facility] NCS and/or EMG Patienton NCS and/or EMG Patient [facility] Pulmonary Services/Neurology [address] [place] [address] MR#: [id number] Acct: [id number] Name: FRANCISCO CRENSHAW Rep #: [id number] : 1975 49 From: Trang Sahni MD [...] Multi Select Codes Neurology Neurology Interp Codes: 18393-39 Musc test done w/n test comp (interp) (2) and 20806-63 Nrv cndj test 9-10 studies (interp) 05/06/25 1035 Date Trang Sahni MD CC: Dr. Trang Sahni MD; Dr. Tawanna Pickard DO Date Dictated: 05/06/25850 Date Transcribed: 05/06/25850 Stained Glass Glazier Helper: Signed Normal [facility] Endocrinology Visit Reporton 02-28-2025 Endocrinology Visit Report [facility]ocr[facility]ology [facility] [address] [place] [address] [address] [place] [address] OFFICE VISIT Date of Service: 02/28/25 MR#: [id number] Acct: [id number] Name: FRANCISCO CRENSHAW Rep #: [id number] : 1975 Provider: Sonya Massey Age/Sex: 49/M Location: [place] Status: Signed Intake Vital Signs 08/30/24 [...] Reasons: 6 M FU Chief Complaint: Diabetes Tow Mate Required: No Accompanied by: Self Is patient [...] #9 ea 01/13/25 02/28/25 Rx Sensor device) [facility] Medical History Obesity Diabetes mellitus type 1 [...] congruent mood (more content not included)... Normal [facility] Additional Injections: L car pal tunnelon 12-06-2024 [...] these instructions. Informed Consent Consent Obtained: Verbal [place] Protocol A moment to CARE was completed. [...] equipment, possible retained foreign bodies accounted for. [facility] CNOVon 12-06-2024 CNOV Office Visit (ORTHTW ) FRANCISCO CRENSHAW ([id number]) 1975 M Date Time Provider Department 12/06/24 [...] these instructions. Informed Consent Consent Obtained: Verbal [place] Protocol A moment to CARE was completed. [...] - Fully Assessed Reason for Visit: New [400890] Cmt: Symptoms of numbness and burning for several months- mainly when driving and sleeping. No previous treatment New [[id number]] Cmt: Symptoms of numbness and burning for several months- mainly when driving and s (more content not included)... Normal [facility] Endocrinology Visit Reporton 08-30-2024 Endocrinology Visit Report [facility] Endocrinology [facility] [address] [place], [place] [address] OFFICE VISIT Date of Service: 08/30/24 MR#: [id number] Acct: [id number] Name: FRANCISCO CRENSHAW Rep #: [id number] : 1975 Provider: Sonya Massey Age/Sex: 49/M Location[facility] Status: Signed Intake Vital Signs 04/19/24 08:03 [...] 11/19/20 08/30/24 Hi story Q-10) blood-glucose sensor ([employer] G7 #9 ea 02/19/24 08/30/24 Rx Sensor [...] 08/30/24 5 History subcutaneous pen injector (Mounjaro) [facility] Medical History Obesity Diabetes mellitus type 1 [...] change hi (more content not included)... Normal [facility] Basophil percentageOrdered B y: Landen Evangelista on 10-27-2023 Cholesterol [Mass/Vol] 197 mg/dL <200 [facility] Comment on above: <200 mg/dL Desirable 200-240 mg/dL Borderline >240 mg/dL High Risk Triglyceride [Mass/Vol] 642 mg/dL <199 [facility] Comment on above: The drugs N-Acetylcy steine [...] Cholesterol in HDL [Mass/Vol] 34 mg/dL >40 [facility] Comment on above: The drugs N-Acetylcy steine and Metamizole may falsely depress this assay. Reference Range HDL <40 mg/dL Low HDL Cholesterol HDL >or= 60 mg/dL High HDL Cholesterol Laboratory - Hematology and Cell countson 10-27-2023 HbA1c (Bld) [Mass fraction] 7.5 % 4.2-6.3 [facility] No Panel InformationOrdered By: Landen Evangelista on 10-27-2023 LDL Cholesterol [facility] Comment on above: Test not performed VLDL Cholesterol [facility] Comment on above: Test not performed CNOVon 03-23-2023 CNOV Office Visit (NMMMM) FRANCISCO CRENSHAW ([id number]) 1975 M Date Time Provider Department 03/23/23 8:45 AM JOSLYN TURCIOS During your visit today, we recorded the following information about you: Joslyn Turcios MD 03/23/2023 9:14 AM Signed [facility] Established Patient Consultation No referring provider defined for this encounter. CC: Traumatic brain injury Subjective History of Present Illness: Mr. Crenshaw is a pleasant 47yo gentleman with a history of a ground-level fall hitting his head in a rock. He denies any LOC. He was seen at [facility] ED on 02/19/2023 where a head [...] - NR (more content not included)... Normal [facility] CT BRAIN WO IVCONon 03-11-20 23 [...] No CT evidence of acute intracranial abnormalities. Stained Glass Glazier Helper: TRACI Transcribe Date/Time: Mar 14 2023 8:00A Dictated by : KEELEY QUEZADA MD This examination was interpreted and the report reviewed and electronically signed by: KEELEY QUEZADA MD on Mar 14 2023 8:08AM EST [id number] Normal [facility] CNNURSEon 03-02-2023 CNNURSE Nurse Visit (NMMMM) FRANCISCO CRENSHAW ([id number]) 1975 M Date Time Provider Department 03/02/23 [...] 02/20/2023 Visit Notes: >> Marilee Nails MA [facility] Mar 02, 2023 11:13 AM Status: Signed 47 y/o male presents to office for staple removal. 7 aakash noted and all removed. Pt tolerated well. No additional concerns. Will have CT completed 03/14 and will RTO for new pt apt with Dr Turcios on 03/21 as scheduled. Encounter Status:Closed by MARILEE NAILS on 03/02/23 [facility]23 [facility] Telephone ([facility]) FRANCISCO CRENSHAW ([id number]) 1975 M Date Time Provider Department 02/23/23 JOSLYN TURCIOSIASERA During your visit today, we recorded the [...] Encounter Status:Closed by MARILEE NAILS on 02/23/23 [facility] David 02-21-2023 [facility] Telephone ([facility]) FRANCISCO CRENSHAW ([id number]) 1975 M Date Time Provider Department 02/21/23 JOSLYN TURCIOS During your visit today, we recorded the following information about you: Allergies As of Date: 02/21/2023 (No Known Allergies) Date Reviewed: 02/20/2023 Reviewed by: Chastity Davidson RN - Fully Assessed Reason for Visit: Orders [681] Primary Visit Diagnosis:Cerebral hemorrhage (HCC) [I61.9] Order(s):CT BRAIN WO IVCON [[id number]] Order #: [id number] FUTURE Prescriptions as of 02/21/2023 - acetaminophen [...] Encounter Status:Closed by MARILEE NAILS on 02/21/23 [facility] CNPN Telephone ([facility]) DEBIFRANCISCO L ([id number]) 1975 M Date Time Provider Department 02/21/23 OJSLYN TURCIOS During your visit today, we recorded the following information about you: Marilee Nails MA 02/21/2023 3:28 PM Signed I called Francisco today to have him schedule a follow up appointment from the ER. CT is scheduled for 03/14 at [place]. Needs to arrive 30 min prior apt. [...] 30-34.9 [E66.9] 02/20/2023 Encounter Status:Closed by MARILEE NAISL on 02/21/23 [facility] ALLIED HEALTHon 02-20-2023 ALLIED HEALTH HNO ID: [id number] Author: Mamie Mckeon Chaplain Service: Spiritual Care Author Type: Home Care Manager Type: Allied Health Filed: 02/20/2023 3:14 PM Note Text: SPIRITUAL CARE PROGRESS NOTE SERVICE DATE: 02/20/2023 SERVICE TIME: 2:32 pm While rounding in ICU, attempted to provide spiritual presence to patient. Patient was busy with medical staff. A button grader will follow up. To contact the Spiritual Care Department: Please call [phone]. SIGNATURE: Chaplain Sarah PATIENT NAME: Francisco Crenshaw DATE: February 20, 2023 TIME: 3:12 PM PAGER/CONTACT #: [phone] [facility] Basic metabolic 2000 panelon 02-20-2023 Anion gap [Moles/Vol] 8 mmol/L Normal 5-16 [facility] Comment on above: Order Comment: Speci men Type: BLOOD SPECIMENOrdering Facility: [facility] Address: [address] [place], [place] [id number] Performed By: #### 2 4321-2 ####[facility] LABORATORYCLIA [id number] [place] [address] [place] Calcium [Mass/Vol] 9.3 mg/dL Normal 8.5-10.5 [facility] Comment on above: Order Comment: Speci men Type: BLOOD SPECIMENOrdering Facility: [facility] Address: [address] [place], [place] [phone] Performed By: #### 2 4321-2 ####[facility] LABORATORYCLIA [id number] [place] [address] [place] Chloride [Moles/Vol] 108 mmol/L High 98-107 [facility] Comment on above: Order Comment: Speci men Type: BLOOD SPECIMENOrdering Facility: [facility] Address: [address] [address] Performed By: #### 2 4321-2 ####[facility] LABORATORYCLIA [id number] [place] [address] [place] CO2 [Moles/Vol] 24 mmol/L Normal 21-32 [facility] Comment on above: Order Comment: Speci men Type: BLOOD SPECIMENOrdering Facility: [facility] Address: [address] [address] Performed By: #### 2 4321-2 ####[facility] LABORATORYCLIA [id number] [place] [address] [place] Creatinine [Mass/Vol] 0.70 mg/dL Normal 0.50-1.40 [facility] Comment on above: Order Comment: Speci men Type: BLOOD SPECIMENOrdering Facility: [facility] Address: [address] [place] [address] Result Comment: Nanci ents receiving either N-Acetylcysteine (NAC) or Metamizole prior to venipuncture, may have falsely depressed results. Performed By: #### 2 4321-2 ####[facility] LABORATORYCLIA [id number] [address] ESTIMATED GLOMERULAR FILTRATION RATE 116 mL/min/1.73m??? Normal >=60 [facility] Comment on above: Order Comment: Speci men Type: BLOOD SPECIMENOrdering Facility: [facility] Address: [address] [place] [address] Result Comment: Taryn mated Glomerular Filtration Rate [...] actual GFR. Performed By: #### 2 4321-2 ####[facility] LABORATORYCLIA [id number] [place] [address] [place] Glucose [Mass/Vol] 164 mg/dL High 70-100 [facility] Comment on above: Order Comment: Speci men Type: BLOOD SPECIMENOrdering Facility: [facility] Address: [address] [place] [address] Result Comment: The [place] Diabetes Association (ADA) provides guidance for cutoff [...] Standards of Medical Care in Diabetes 2016, [place] Diabetes Association. Diabetes Care. 2016.39(Suppl 1). Results may be falsely elevated after the administration of Sulfapyridine. Results may be falsely depressed after the administration of Sulfasalazine. Performed By: #### 2 4321-2 ####[facility] LABORATORYCLIA [id number] [place] [address] [place] Potassium [Moles/Vol] 4.0 mmol/L Normal 3.5-5.1 [facility] Comment on above: Order Comment: Patricia liliana Type: BLOOD SPECIMENOrdering Facility: [facility] Address: [address] [place] [address] Performed By: #### 2 4321-2 ####[facility]ORATORYCLIA [id number] [place] [address] [place] Sodium [Moles/Vol] 140 mmol/L Normal 136-145 [facility] Comment on above: Order Comment: Patricia liliana Type: BLOOD SPECIMENOrdering Facility: [facility] Address: [address] [place] [address] Performed By: #### 2 4321-2 ####[facility] LABORATORYCLIA [id number] [place] [address] [place] Urea nitrogen [Mass/Vol] 9 mg/dL Normal 7-26 [facility] Comment on above: Order Comment: Speci men Type: BLOOD SPECIMENOrdering Facility: [facility] Address: [address] [address] Performed By: #### 2 4321-2 ####[facility]ORATORYCLIA [id number] [place] [address] [place] Anion gap [Moles/Vol] 9 mmol/L Normal 5-16 [facility] Comment on above: Order Comment: Speci men Type: BLOOD SPECIMEN [facility] Address: [address] [address] Performed By: #### 2 4321-2 #### [facility] CLIA [id number] [address] [place] [address] [place] Calcium [Mass/Vol] 9.8 mg/dL Normal 8.5-10.5 [facility] Comment on above: Order Comment: Speci men Type: BLOOD SPECIMEN [facility] Address: [address] Performed By: #### 2 4321-2 #### [facility] CLIA [id number] [address] [place] [address] [place] Chloride [Moles/Vol] 104 mmol/L Normal 98-107 [facility] Comment on above: Order Comment: Speci men Type: BLOOD SPECIMEN [facility] Address: [address] Performed By: #### 2 4321-2 #### [facility] CLIA [id number] [address] [place], [place] [address] [place] CO2 [Moles/Vol] 25 mmol/L Normal 21-32 [facility] Comment on above: Order Comment: Speci men Type: BLOOD SPECIMEN [facility] Address: [address] Performed By: #### 2 4321-2 #### [facility] CLIA [id number] [address] [place] [address] [place] Creatinine [Mass/Vol] 0.80 mg/dL Normal 0.50-1.40 [facility] Comment on above: Order Comment: Patricia ford Type: BLOOD SPECIMEN [facility] Address: [address] [id number] Result Comment: Nanci ents receiving either N-Acetylcysteine (NAC) or Metamizole prior to venipuncture, may have falsely depressed results. Performed By: #### 2 4321-2 #### [facility] CLIA [id number] [address] [place] [address] [place] ESTIMATED GLOMERULAR FILTRATION RATE 111 mL/min/1.73m??? Normal >=60 [facility] Comment on above: Order Comment: Patricia ford Type: BLOOD SPECIMEN [facility] Address: [address] [place] [address] Result Comment: Taryn mated Glomerular Filtration Rate [...] GFR. Performed By: #### 2 4321-2 #### [facility] CLIA [id number] [address] [place] [address] [place] Glucose [Mass/Vol] 195 mg/dL High 70-100 [facility] Comment on above: Order Comment: Patricia ford Type: BLOOD SPECIMEN [facility] Address: [address] [place], [place] [phone] Result Comment: The [place] Diabetes Association (ADA) provides guidance for cutoff [...] Standards of Medical Care in Diabetes 2016, [place] Diabetes Association. Diabetes Care. 2016.39(Suppl 1). Results may be falsely elevated after the administration of Sulfapyridine. Results may be falsely depressed after the administration of Sulfasalazine. Performed By: #### 2 4321-2 #### [facility] CLIA [id number] [address] [place] [address] [place] Potassium [Moles/Vol] Normal [facility] Comment on above: Order Comment: Patricia ford Type: BLOOD SPECIMEN [facility] Address: [address] [place] [address] Result Comment: Unab le to assay due to interference from hemolysis. Suggest reorder as clinically indicated. Genia Woods RN Performed By: #### 2 4321-2 #### [facility] CLIA [id number] [address] [place] [address] [place] Sodium [Moles/Vol] 138 mmol/L Normal 136-145 [facility] Comment on above: Order Comment: Patricia ford Type: BLOOD SPECIMEN [facility] Address: [address] [place] [address] Performed By: #### 2 4321-2 #### [facility] CLIA [id number] [address] [place] [address] [place] Urea nitrogen [Mass/Vol] 11 mg/dL Normal 7-26 [facility] Comment on above: Order Comment: Patricia ford Type: BLOOD SPECIMEN [facility] Address: [address] [place] [address] Performed By: #### 2 4321-2 #### [facility] CLIA [id number] [address] [place] [address] [place] CBC W Auto Differential pane l (Bld)on 02-20-2023 Basophils (Bld) [#/Vol] 0.05 10*3/uL Normal <0.11 [facility] Comment on above: Order Comment: Speci men Type: BLOOD SPECIMEN [facility] Address: [address] [address] Performed By: #### 5 7021-8 #### [facility] CLIA [id number] [address] [place] [address] [place] Basophils/100 WBC (Bld) 0.3 % Normal [facility] Comment on above: Order Comment: Speci men Type: BLOOD SPECIMEN [facility] Address: [address] [address] Performed By: #### 5 7021-8 #### [facility] CLIA [id number] [address] [place] [address] OF [place]UD[place] Differential cell count method Nom (Bld) Auto Normal [facility] Comment on above: Order Comment: Speci men Type: BLOOD SPECIMEN [facility] Address: [address] [address] Performed By: #### 5 7021-8 #### [facility] CLIA [id number] [address] [place] [address] [place] Eosinophils (Bld) [#/Vol] 0.06 10*3/uL Normal <0.46 [facility] Comment on above: Order Comment: Speci men Type: BLOOD SPECIMEN [facility] Address: [address] [address] Performed By: #### 5 7021-8 #### [facility] CLIA [id number] [address] [place] [address] [place] Eosinophils/100 WBC (Bld) 0.4 % Normal [facility] Comment on above: Order Comment: Speci men Type: BLOOD SPECIMEN [facility] Address: [address] [address] Performed By: #### 5 7021-8 #### [facility] CLIA [id number] [address] [place] [address] [place] Erythrocyte distribution width (RBC) [Ratio] 12.5 % Normal 11.5-15.0 [facility] Comment on above: Order Comment: Speci men Type: BLOOD SPECIMEN [facility] Address: [address] [address] Performed By: #### 5 7021-8 #### [facility] CLIA [id number] [address] [place] [address] [place] Hematocrit (Bld) [Volume fraction] 43.1 % Normal 39.0-51.0 [facility] Comment on above: Order Comment: Speci men Type: BLOOD SPECIMEN [facility] Address: [address] [address] Performed By: #### 5 7021-8 #### [facility] CLIA [id number] [address] [place] [address] [place] Hemoglobin (Bld) [Mass/Vol] 15.3 g/dL Normal 13.0-17.0 [facility] Comment on above: Order Comment: Speci men Type: BLOOD SPECIMEN [facility] Address: [address] [address] Performed By: #### 5 7021-8 #### [facility] CLIA [id number] [address] [place] [address] [place] Immature granulocytes (Bld) [#/Vol] 0.07 10*3/uL Normal <0.10 [facility] Comment on above: Order Comment: Speci men Type: BLOOD SPECIMEN [facility] Address: [address] [address] Performed By: #### 5 7021-8 #### [facility] CLIA [id number] [address] [place] [address] [place] Immature granulocytes/100 WBC (Bld) 0.5 % Normal [facility] Comment on above: Order Comment: Speci men Type: BLOOD SPECIMEN [facility] Address: [address] [address] Performed By: #### 5 7021-8 #### [facility] CLIA [id number] [address] [place] [address] [place] Lymphocytes (Bld) [#/Vol] 1.59 10*3/uL Normal 1.00-4.00 [facility] Comment on above: Order Comment: Speci men Type: BLOOD SPECIMEN [facility] Address: [address] [place] [address] Performed By: #### 5 7021-8 #### [facility] CLIA [id number] [address] [place] [address] OF AUDIE Lymphocytes/100 WBC (Bld) 11.1 % Normal [facility] Comment on above: Order Comment: Speci men Type: BLOOD SPECIMEN [facility]ing Facility: [facility] Address: [address] [place] [address] Performed By: #### 5 7021-8 #### [facility] CLIA [id number] [address] [place] [address] OF AUDIE MCH (RBC) [Entitic mass] 31.2 pg Normal 26.0-34.0 [facility] Comment on above: Order Comment: Speci men Type: BLOOD SPECIMEN Ordering Facility: [facility] Address: [address] [place] [address] Performed By: #### 5 7021-8 #### [facility] CLIA [id number] [address] [place] [address] [place] OF [place]UDIE MCHC (RBC) [Mass/Vol] 35.5 g/dL Normal 30.5-36.0 [facility] Comment on above: Order Comment: Speci men Type: BLOOD SPECIMEN Ordering Facility: [facility] Address: [address] [place] [address] Performed By: #### 5 7021-8 #### [facility] CLIA [id number] [address] [place] [address] STATES [place] MCV (RBC) [Entitic vol] 87.8 fL Normal 80.0-100.0 [facility] Comment on above: Order Comment: Speci men Type: BLOOD SPECIMEN Ordering Facility: [facility] Address: [address] [address] Performed By: #### 5 7021-8 #### [facility] CLIA [id number] [address] [place] [address] [place] Monocytes (Bld) [#/Vol] 0.64 10*3/uL Normal <0.87 [facility] Comment on above: Order Comment: Speci men Type: BLOOD SPECIMEN Ordering Facility: [facility] Address: [address] [address] Performed By: #### 5 7021-8 #### [facility] CLIA [id number] [address] [place] [address] [place] Monocytes/100 WBC (Bld) 4.5 % Normal [facility] Comment on above: Order Comment: Speci men Type: BLOOD SPECIMEN Ordering Facility: [facility] Address: [address] [address] Performed By: #### 5 7021-8 #### [facility] CLIA [id number] [address] [place] [address] [place] Neutrophils (Bld) [#/Vol] 11.92 10*3/uL High 1.45-7.50 [facility] Comment on above: Order Comment: Speci men Type: BLOOD SPECIMEN Ordering Facility: [facility] Address: [address] [address] Performed By: #### 5 7021-8 #### [facility] CLIA [id number] [address] [place] [address] [place] Neutrophils/100 WBC (Bld) 83.2 % Normal [facility] Comment on above: Order Comment: Speci men Type: BLOOD SPECIMEN [facility]ing Facility: [facility] Address: [address] [address] Performed By: #### 5 7021-8 #### [facility] CLIA [id number] [address] [place] [address] [place] Nucleated RBC (Bld) [#/Vol] 10*3/uL Normal <0.01 [facility] Comment on above: Order Comment: Speci men Type: BLOOD SPECIMEN [facility] Facility: [facility] Address: [address] [address] Performed By: #### 5 7021-8 #### [facility] CLIA [id number] [address] [place] [address] [place] Nucleated RBC/100 WBC (Bld) [Ratio] 0.0 /100 WBC Normal [facility] Comment on above: Order Comment: Speci men Type: BLOOD SPECIMEN [facility]ing Facility: [facility] Address: [address] [address] Performed By: #### 5 7021-8 #### [facility] CLIA [id number] [address] [place] [address] [place] Platelet mean volume (Bld) [Entitic vol] 10.4 fL Normal 9.0-12.7 [facility] Comment on above: Order Comment: Speci men Type: BLOOD SPECIMEN [facility]ing Facility: [facility] Address: [address] [address] Performed By: #### 5 7021-8 #### [facility] CLIA [id number] [address] [place] [address] [place] Platelets (Bld) [#/Vol] 278 10*3/uL Normal 150-400 [facility] Comment on above: Order Comment: Speci men Type: BLOOD SPECIMEN Ordering Facility: [facility] Address: [address] Performed By: #### 5 7021-8 #### [facility] CLIA [id number] [address] [place] [address] [place] RBC (Bld) [#/Vol] 4.91 10*6/uL Normal 4.20-6.00 [facility] Comment on above: Order Comment: Speci men Type: BLOOD SPECIMEN Ordering Facility: [facility] Address: [address] [place] [address] Performed By: #### 5 7021-8 #### [facility] CLIA [id number] [address] [place] [address] [facility] OF AUDIE WBC (Bld) [#/Vol] 14.33 10*3/uL High 3.70-11.00 [facility] Comment on above: Order Comment: Speci men Type: BLOOD SPECIMEN Order[facility] Facility: [facility] Address: [address] Performed By: #### 5 7021-8 #### [facility] CLIA [id number] [address] [place] [address] CBC panel Auto (Bld)on 02-20 Erythrocyte distribution width (RBC) [Ratio] 12.6 % Normal 11.5-15.0 [facility] Comment on above: Order Comment: Speci men Type: BLOOD SPECIMENOrdering Facility: [facility] Address: [address] [address] Performed By: #### 5 8410-2 ####[facility] [id number] [address] Hematocrit (Bld) [Volume fraction] 43.3 % Normal 39.0-51.0 [facility] Comment on above: Order Comment: Speci men Type: BLOOD SPECIMENOrdering Facility: [facility] Address: [address] Performed By: #### 5 8410-2 ####[facility] [id number] [address] OF [facility] Hemoglobin (Bld) [Mass/Vol] 15.1 g/dL Normal 13.0-17.0 [facility] Comment on above: Order Comment: Speci men Type: BLOOD SPECIMENOrdering Facility: [facility] Address: [address] [address] Performed By: #### 5 8410-2 ####[facility] [id number] [address] AUDIE MCH (RBC) [Entitic mass] 30.8 pg Normal 26.0-34.0 [facility] Comment on above: Order Comment: Speci men Type: BLOOD SPECIMENOrdering Facility: [facility] Address: [address] [place] [address] Performed By: #### 5 8410-2 ####[facility] [id number] [address] OF AUDIE MCHC (RBC) [Mass/Vol] 34.9 g/dL Normal 30.5-36.0 [facility] Comment on above: Order Comment: Speci men Type: BLOOD SPECIMENOrdering Facility: [facility] Address: [address] [place] [address] Performed By: #### 5 8410-2 ####[facility] [id number] [address] OF [facility] MCV (RBC) [Entitic vol] 88.4 fL Normal 80.0-100.0 [facility] Comment on above: Order Comment: Speci men Type: BLOOD SPECIMENOrdering Facility: [facility] Address: [address] [place] [address] Performed By: #### 5 8410-2 ####[facility] [id number] [address] Nucleated RBC (Bld) [#/Vol] 10*3/uL Normal <0.01 [facility] Comment on above: Order Comment: Speci men Type: BLOOD SPECIMENOrdering Facility: [facility] Address: [address] [place] [address] Performed By: #### 5 8410-2 ####[facility] [id number] [address] Platelet mean volume (Bld) [Entitic vol] 10.4 fL Normal 9.0-12.7 [facility] Comment on above: Order Comment: Speci men Type: BLOOD SPECIMENOrdering Facility: [facility] Address: [address] [address] Performed By: #### 5 8410-2 ####[facility]IA [id number] [address] [id number] [facility] OF AUDIE Platelets (Bld) [#/Vol] 248 10*3/uL Normal 150-400 [facility] Comment on above: Order Comment: Speci men Type: BLOOD SPECIMENOrdering Facility: [facility] Address: [address] [address] Performed By: #### 5 8410-2 ####[facility]IA [id number] [place] [address] [facility] OF AUDIE RBC (Bld) [#/Vol] 4.90 10*6/uL Normal 4.20-6.00 [facility] Comment on above: Order Comment: Speci men Type: BLOOD SPECIMENOrdering Facility: [facility] Address: [address] [address] Performed By: #### 5 8410-2 ####[facility] [id number] [address] OF AUDIE WBC (Bld) [#/Vol] 14.74 10*3/uL High 3.70-11.00 [facility] Comment on above: Order Comment: Speci men Type: BLOOD SPECIMENOrdering Facility: [facility] Address: [address] [address] Performed By: #### 5 8410-2 ####[facility]IA [id number] [address] CNDSon 02-20-2023 CNDS HNO ID: [id number] Author: Jv Lucas APRN.MAIL ROOM CLERK Service: Trauma Author Type: Nurse Practitioner Type: Discharge Summary Filed: 02/20/2023 2:23 PM Note Text: Attestation signed by Gildardo Horotn MD at 02/20/2023 3:20 PM Agree with PRODUCTION PLANNER SCHEDULER documentation. DC with outpatient followup for staple removal Gildardo Horton MD 02/20/2023 3:20 PM DISCHARGE SUMMARY PATIENT NAME: Francisco Crenshaw ADMISSION DATE: 02/19/2023 DISCHARGE DATE: 02/20/2023 Attending Physician: Rahda Camarillo MD Code Status: Not on file [...] male who presented to the ER from [facility] after sustaining a head injury. The [...] his drove approximately 45 minutes back to [place] where he was evaluated at [facility]. At the [facility], he was found to have worsening headache with nausea AND vomiting therefore he was sent to [facility] for further work-up. In the ER, he had his laceration repaired with aakash. [place] need removed in [address] revealed [...] mg tablet (more content not included)... Normal [facility] CONSULTon 02-20-2023 CONSULT HNO ID: [id number] Author: Marcos Vazquez APRN.MAIL ROOM CLERK Service: Neurosurgery Author Type: Nurse Practitioner Type: [...] 47 year old male who presents to [facility] ED s/p fall while at [facility]. He was with his when he slipped [...] and POC discussed with Dr. Cervantes, trauma MAIL ROOM CLERK, RN, and at bedside PAST MEDICAL HISTORY: [...] peripheral puls (more content not included)... Normal [facility] CONSULT HNO ID: [id number] Author: Arnold Ponce APRN.CNP Service: Critical Care Author Type: Nurse Practitioner Type: Consults Filed: 02/20/2023 2:05 AM Note Text: [facility] PULMONARY [facility]ARE SERVICE DATE: February 19, 2023 SERVICE TIME: 2344 Consulting Doctor: Dr. Marquise MD CHIEF COMPLAINT: Mechanical Fall ; Bifrontal/Bitemporal Hemorrhagic Contusions HPI: This is a 47-year-old male w/t a PMHx significant for DM Type-I (on insulin pump) and HTN who presents from [facility] this evening w/t complaints of a fall w/t injury to his head. Reportedly, the patient [place] around [facility] with his . The patient states he [...] his drove approximately 45 minutes back to [place] where he was evaluated at [facility]. At the [facility], he was found to have worsening headache with nausea AND vomiting therefore he was sent to [facility] for further work-up. In the ED, patient [...] scalp lacer (more content not included)... Normal [facility] CT BRAIN WO IVCONon 02-21-20 CT BRAIN WO IVCON * * *Final Report* * * DATE OF EXAM: Feb 20 2023 6:05AM [facility] 0504 - CT BRAIN WO IVCON [...] base and imaged soft tissues are unremarkable. Equal Opportunity Director (topogram) images: No additional findings. IMPRESSION: Stable trace bilateral subarachnoid hemorrhage as above. 2 previously described bifrontal and bitemporal contusions are less conspicuously seen compared to prior. No new acute finding. Stained Glass Glazier Helper: TRACI Transcribe Date/Time: Feb 20 2023 7:11A Dictated by : SAI GRAVES MD This examination was interpreted and the report reviewed and electronically signed by: SAI GRAVES MD on Feb 20 2023 7:15AM EST [id number] [facility] CT BRAIN WO IVCON * * *Final Report* * * DATE OF EXAM: Feb 19 2023 11:14PM [facility] 0504 - CT BRAIN WO IVCON [...] grossly clear. Subtle nondepressed right occipital fracture Equal Opportunity Director (topogram) images: Unremarkable. IMPRESSION: Findings compatible with traumatic bifrontal and bitemporal hemorrhagic contusions with trace associated subarachnoid blood. No significant mass effect. Nondepressed right occipital fracture URGENT RESULTS Acuity: Urgent Communication: Communicated with NILSON on 02/19/2023 11:25 PM via verbal communication. Stained Glass Glazier Helper: TRACI Transcribe Date/Time: Feb 19 2023 11:18P Dictated by : BEBETO RAI MD This examination was interpreted and the report reviewed and electronically signed by: BEBETO RAI MD on Feb 19 2023 11:27PM EST [id number] [facility] CT CERVICAL SPINE WO IVCONon 02-20-2023 CT CERVICAL SPINE WO IVCON * * *Final Report* * * DATE OF EXAM: Feb 19 2023 11:14PM [facility] 0505 - CT CERVICAL SPINE WO [...] Counting reference: Craniocervical junction. Anatomic Variants: None. Equal Opportunity Director (topogram) images: No additional findings. Alignment: Alignment [...] vertebrae with counting from the craniocervical junction. Stained Glass Glazier Helper: TRACI Transcribe Date/Time: Feb 19 2023 11:25P Dictated by : PETRONA OSUNA MD This examination was interpreted and the report reviewed and electronically signed by: PETRONA OSUNA MD on Feb 19 2023 11:30PM EST [id number] [facility] ED NOTEon 02-20-2023 ED NOTE HNO ID: [id number] Author: Augustine, Inderjit, RN Service: Nursing Author Type: Registered Nurse Type: ED Notes Filed: 02/20/2023 12:50 AM Note Text: Transported to ICU by this RN and Madison Ironworker Apprentice on monitor with follow ing. [facility] ED NOTE HNO ID: [id number] Author: Inderjit Bradshaw RN Service: Nursing Author Type: Registered Nurse Type: ED Notes Filed: 02/20/2023 12:50 AM Note Text: Report to Chastity in CONSTRUCTION FIELD ENGINEER. Eric w/neisha Khan/Allan. Speech clear. Equal grasps. Pupils equal round reactive to light 5mm. AZAR 5/10 with photosensitivity. Normal [facility] ED PROV NOTEon 02-20-2023 ED PROV NOTE HNO ID: [id number] Author: Masha Mckenzie PA-C Service: Emergency Medicine Author Type: Physician Passementerie Worker Type: ED Provider Notes Filed: 02/20/2023 12:24 [...] on 02/19/2023 11:25 PM via verbal communication. Stained Glass Glazier Helper: TRACI Transcribe Date/Time: Feb 19 2023 11:18P [...] vertebrae with counting from the craniocervical junction. Stained Glass Glazier Helper: TRACI Transcribe Date/Time: Feb 19 2023 11:25P [...] 5:30 PM he had been up at [facility], walking along a brick wall when he [...] of this (more content not included)... Normal [facility] HISTORY PHYSICALon 3 HISTORY PHYSICAL HNO ID: [id number] Author: Radha Camarillo MD Service: General Surgery [...] to open ambulate afterwards. He drove from [facility] to [facility] ( approximately 45-[address] drive). Patient developed significant worsening headache while at [facility] and had nausea and emesis. Facility did not have CT scan available and he was sent to [facility] ED for further work-up. His work-up [...] COVID-19 original vaccine, age 12+ yr, monovalent (TrustAlert-GlobeIn - PURPLE TOP) 03/05/2021 05/28/2021 tetanus diphtheria [...] on 02/19/2023 11:25 PM via verbal communication. Stained Glass Glazier Helper: TRACI Transcribe Date/Time: Feb 19 2023 11:18P [...] vertebrae with counting from the craniocervical junction. Stained Glass Glazier Helper: TRACI Transcribe Date/Time: Feb 19 2023 11:25P [...] 02/19/23 2227 CR (more content not included)... [facility] CNOVon 02-19-2023 CNOV Office Visit (UCMNCA ) FRANCISCO CRENSHAW ([id number]) 1975 M Date Time Provider Department 02/19/23 7:40 PM THAD NANCE [facility] During your visit today, we recorded the [...] Due to Head Injury (Fell today at [facility]. States slipped on a rock and hit [...] subscore is 6. Coordination: Romberg sign positive. Jozrrz-Adxl-Rlmqxu Test abnormal. Gait: Gait abnormal. ASSESSMENT/PLAN: 1. [...] Head Injury [Other] Cmt: Fell today at [facility]. States slipped on a rock and hit [...] Encounter Status:Closed by THAD NANCE on 02/19/23 [facility] ED NOTEon 02-19-2023 ED NOTE HNO ID: [id number] Author: Odette Tavarez, KADEN Service: ? Author Type: Registered Nurse Type: ED Notes Filed: 02/19/2023 9:35 PM Note Text: Pt unable to tolerate C collar, Nilson HOYT notified. [facility] ED Triage Noteon 02-19-2023 ED Triage Note HNO ID: [id number] Author: Parth Devine PA-C Service: ? Author Type: Physician Passementerie Worker Type: ED Triage Notes Filed: 02/19/2023 9:19 [...] IV Zofran, tetanus SIGNATURE: Parth Devine PA-C [facility] HISTORY PHYSICALon HISTORY PHYSICAL HNO ID: [id number] Author: Thad Nance APRN.CNP Service: ? Author Type: Nurse Practitioner Type: HANDP Filed: 02/19/2023 8:36 PM Note Text: Francisco Crenshaw is a 47 year old male who presents with Laceration to the Head Due to Head Injury (Fell today at [facility]. States slipped on a rock and hit [...] subscore is 6. Coordination: Romberg sign positive. Ctmhqk-Zdqz-Xkhjvo Test abnormal. Gait: Gait abnormal. ASSESSMENT/PLAN: 1. [...] drive her to the ER. Thad Nance [facility] CBC W/AUTO DIFF WBC ([id number])O rdered By: Funeral Pre Arrangement Specialist on 10-07-2022 Basophils (Bld) [#/Vol] 0.1 10*3/uL Normal 0.0-0.2 [facility]; [facility] Work Phone: Comment on above: PATIENT WAS FASTINGP ERFORMED BY: Cie Games70 CharityStarsFrye Regional [facility] Center [id number] BY: Passworks[address] [id number] Basophils/100 WBC (Bld) 1 % Normal [facility]; [facility] Work Phone: Comment on above: PATIENT WAS FASTINGP ERFORMED BY: [employer] LeadjiniFrye Regional Medical Center [id number] BY: Pass[address] [id number] Eosinophils (Bld) [#/Vol] 0.4 10*3/uL Normal 0.0-0.4 [facility]; [facility] Work Phone: Comment on above: PATIENT WAS FASTINGP ERFORMED BY: Cie Games70 JoynerHCA Midwest Division [id number] BY: Deligic[address] [id number] Eosinophils/100 WBC (Bld) 5 % Normal [facility]; [facility] Work Phone: Comment on above: PATIENT WAS FASTINGP ERFORMED BY: Qitio LabThundersoft Tvrngf7773 [address] LeadjiniFrye Regional Medical Center [id number] BY: Pass[address] [id number] Erythrocyte distribution width (RBC) [Ratio] 13.1 % Normal 11.6-15.4 [facility]; [facility] Work Phone: Comment on above: PATIENT WAS FASTINGP ERFORMED BY: FERN [facility] Ylytco[address] [facility] [id number] BY: [address] [id number] Hematocrit (Bld) [Volume fraction] 45.8 % Normal 37.5-51.0 [facility]; [facility] Work Phone: Comment on above: PATIENT WAS FASTINGP ERFORMED BY: FERN [facility] Xvxpvi89[address] [facility] [id number] BY: [address] [id number] Hemoglobin (Bld) [Mass/Vol] 15.8 g/dL Normal 13.0-17.7 [facility]; [facility] Work Phone: Comment on above: PATIENT WAS FASTINGP ERFORMED BY: FERN [facility] Kxuggh38[address] [facility] [id number] BY: [address] [id number] Immature granulocytes (Bld) [#/Vol] 0.0 10*3/uL Normal 0.0-0.1 [facility]; [facility] Work Phone: Comment on above: PATIENT WAS FASTINGP ERFORMED BY: [facility] Fpfnec[address] [facility] [id number] BY: [address] [id number] Immature granulocytes/100 WBC (Bld) 1 % Normal [facility]; [facility] Work Phone: Comment on above: PATIENT WAS FASTINGP ERFORMED BY: FERN [facility] Bcbxyf0[address] [facility] [id number] BY: Deligic[address] [id number] Lymphocytes (Bld) [#/Vol] 2.7 10*3/uL Normal 0.7-3.1 [facility]; [facility] Work Phone: Comment on above: PATIENT WAS FASTINGP ERFORMED BY: LabcoSt. Lawrence Rehabilitation CenterShwmaf[address] [facility] [id number] BY: Lab[address] [id number] Lymphocytes/100 WBC (Bld) 31 % Normal [facility]; [facility] Work Phone: Comment on above: PATIENT WAS FASTINGP ERFORMED BY: [facility] Zbpvbm[address] [facility] [id number] BY: [address] [id number] MCH (RBC) [Entitic mass] 31.5 pg Normal 26.6-33.0 [facility]; [facility] Work Phone: Comment on above: PATIENT WAS FASTINGP ERFORMED BY: FERN [facility] Xlestf7[address] [facility] [id number] BY: [address] [id number] MCHC (RBC) [Mass/Vol] 34.5 g/dL Normal 31.5-35.7 [facility]; [facility] Work Phone: Comment on above: PATIENT WAS FASTINGP ERFORMED BY: [facility] Ccnhan[address] [facility] [id number] BY: [address] [id number] MCV (RBC) [Entitic vol] 91 fL Normal 79-97 [facility]; [facility] Work Phone: Comment on above: PATIENT WAS FASTINGP ERFORMED BY: [facility] Yejyhg[address] [facility] [id number] BY: BN Labco[address] [id number] Monocytes (Bld) [#/Vol] 0.8 10*3/uL Normal 0.1-0.9 [facility]; [facility] Work Phone: Comment on above: PATIENT WAS FASTINGP ERFORMED BY: FERN [facility] Dlfuex3288 Joyner RoadDublin [place] [id number] BY: [facility] [address] [id number] Monocytes/100 WBC (Bld) 9 % Normal [facility]; [facility] Work Phone: Comment on above: PATIENT WAS FASTINGP ERFORMED BY: FERN [facility] Zurpsk6782 [address] [facility] [id number] BY: [facility] [address] [id number] Neutrophils (Bld) [#/Vol] 4.6 10*3/uL Normal 1.4-7.0 [facility]; [facility] Work Phone: Comment on above: PATIENT WAS FASTINGP ERFORMED BY: FERN [facility] Foshxe7841 [address] [facility] [id number] BY: [facility] [address] [id number] Neutrophils/100 WBC (Bld) 53 % Normal [facility]; [facility] Work Phone: Comment on above: PATIENT WAS FASTINGP ERFORMED BY: CB [facility] Jhiuql7767 Joyner RoadFrye Regional Medical Center [id number] BY: [facility] [address] [id number] Platelets (Bld) [#/Vol] 272 10*3/uL Normal 150-450 [facility]; [facility] Work Phone: Comment on above: PATIENT WAS FASTINGP ERFORMED BY: CB [facility] Rbvqbr4490 [address] [facility] [id number] BY: [facility] [address] [id number] RBC (Bld) [#/Vol] 5.01 10*6/uL Normal 4.14-5.80 [facility]; [facility] Work Phone: Comment on above: PATIENT WAS FASTINGP ERFORMED BY: FERN [facility] Yuidik60[address] [facility] [id number] BY: [address] [id number] WBC (Bld) [#/Vol] 8.6 10*3/uL Normal 3.4-10.8 [facility]; [facility] Work Phone: Comment on above: PATIENT WAS FASTINGP ERFORMED BY: FERN [facility] Cxzfnh4086 [facility] [id number] BY: [address] [id number] METABOLIC PANEL, COMPREHENSI VE (35124)Ordered By: Funeral Pre Arrangement Specialist on 10-07-2022 Albumin [Mass/Vol] 4.6 g/dL Normal 4.0-5.0 [facility]; [facility] Work Phone: Comment on above: PATIENT WAS FASTINGP ERFORMED BY: FERN [facility] Gjxmie5441 [facility] [id number] BY: [address] [id number] Albumin/Globulin [Mass ratio] 1.8 {ratio} Normal 1.2-2.2 [facility]; [facility] Work Phone: Comment on above: PATIENT WAS FASTINGP ERFORMED BY: [facility] Jkcmvt6641 [facility] [id number] BY: [address] [id number] ALP [Catalytic activity/Vol] 110 U/L Normal 44-121 [facility]; [facility] Work Phone: Comment on above: PATIENT WAS FASTINGP ERFORMED BY: [facility] Gflqax9152 [address] [facility] Hospitalin [place] [id number] BY: [address] [id number] ALT [Catalytic activity/Vol] 68 U/L Abnormal 0-44 [facility]; [facility] Work Phone: Comment on above: PATIENT WAS FASTINGP ERFORMED BY: [facility] Ltnsbe3742 [facility] RoadFrye [facility] [id number] BY: Lab[address] [id number] AST [Catalytic activity/Vol] 42 U/L Abnormal 0-40 [facility]; [facility] Work Phone: Comment on above: PATIENT WAS FASTINGP ERFORMED BY: [facility] Brvfok2970 [facility] RoadFrye Regional [facility] Center [id number] BY: [address] [id number] Bilirubin [Mass/Vol] 0.3 mg/dL Normal 0.0-1.2 Comp rehensive Internal Medicine; [facility] Work Phone: Comment on above: PATIENT WAS FASTINGP ERFORMED BY: [facility] Vbwydm7139 [facility] [id number] BY: [address] [id number] Calcium [Mass/Vol] 9.6 mg/dL Normal 8.7-10.2 [facility]; [facility] Work Phone: Comment on above: PATIENT WAS FASTINGP ERFORMED BY: [facility] Ujlnqx5103 [facility] [id number] BY: [address] [id number] Chloride [Moles/Vol] 101 mmol/L Normal 96-106 Comp rehensive Internal Medicine; [facility] Work Phone: Comment on above: PATIENT WAS FASTINGP ERFORMED BY: [facility] Rhrhvn5255 [facility] [id number] BY: [facility] [address] [id number] CO2 [Moles/Vol] 22 mmol/L Normal 20-29 [facility]; [facility] Work Phone: Comment on above: PATIENT WAS FASTINGP ERFORMED BY: FERN [facility] Dlyewl[address] [facility] [id number] BY: [facility] [address] [id number] Creatinine [Mass/Vol] 0.88 mg/dL Normal 0.76-1.27 [facility] prehensive Internal Medicine; [facility] Work Phone: Comment on above: PATIENT WAS FASTINGP ERFORMED BY: FERN [facility] Idujhq77[address] [facility] [id number] BY: LabInsideView[address] [id number] GFR/1.73 sq M.predicted among non-blacks MDRD (S/P/Bld) [Vol rate/Area] 108 mL/min/{1.73_m2} Normal Comprehensi ve Internal Medicine; [facility] Work Phone: Comment on above: PATIENT WAS FASTINGP ERFORMED BY: FERN [facility] Zwahpx5[address] [facility] [id number] BY: Labco[address] [id number] Globulin (S) [Mass/Vol] 2.5 g/dL Normal 1.5-4.5 [facility]; [facility] Work Phone: Comment on above: PATIENT WAS FASTINGP ERFORMED BY: CB [facility] Jlhnib10[address] [facility] [id number] BY: Labco[address] [id number] Glucose [Mass/Vol] 156 mg/dL Abnormal 70-99 [facility] Internal [facility]; [facility] Work Phone: Comment on above: PATIENT WAS FASTINGP ERFORMED BY: FERN [facility] Tumjsz8549 [facility] [id number] BY: Labco[address] [id number] Potassium [Moles/Vol] 4.5 mmol/L Normal 3.5-5.2 [facility]; [facility] Work Phone: Comment on above: PATIENT WAS FASTINGP ERFORMED BY: FERN [facility] Uxuepd7578 [facility] [id number] BY: [facility] [address] [id number] Protein [Mass/Vol] 7.1 g/dL Normal 6.0-8.5 [facility]; [facility] Work Phone: Comment on above: PATIENT WAS FASTINGP ERFORMED BY: FERN [facility] Knmakd050[address] [facility] [id number] BY: Labco[address] [id number] Sodium [Moles/Vol] 139 mmol/L Normal 134-144 [facility]; [facility] Work Phone: Comment on above: PATIENT WAS FASTINGP ERFORMED BY: FERN [facility] Nchxdb17[address] [facility] [id number] BY: Labco[address] [id number] Urea nitrogen [Mass/Vol] 10 mg/dL Normal 6-24 [facility]; [facility] Work Phone: Comment on above: PATIENT WAS FASTINGP ERFORMED BY: FERN [facility] Efzsbw70[address] [facility] [id number] BY: Labco[address] [id number] Urea nitrogen/Creatinine [Mass ratio] 11 mg/mg Normal 9-20 [facility]; [facility] Work Phone: Comment on above: PATIENT WAS FASTINGP ERFORMED BY: FERN [facility] Sjqdjp3242 [facility] [id number] BY: [employer] [id number] TESTOSTERONE FREE (41860)Ord ered By: Funeral Pre Arrangement Specialist on 10-07-2022 Testosterone Free [Mass/Vol] 8.1 pg/mL Normal 6.8-21.5 [facility]; [facility] Work Phone: Comment on above: PATIENT WAS FASTINGP ERFORMED BY: [employer] [facility] [id number] BY: [employer] [id number] TESTOSTERONE TOTAL (17655)Or dered By: Funeral Pre Arrangement Specialist on 10-07-2022 Testosterone [Mass/Vol] 389 ng/dL Normal 264-916 [facility]; [facility] Work Phone: Comment on above: Adult male reference interval is based on a population ofhealthy nonobese males (BMI <30) between 19 and 39 years old.breanna Miranda.al. JCEM 2017,102;2752-0089. PMID: 56612535. PATIENT WAS FASTINGP ERFORMED BY: Kout[address] [facility] [id number] BY: [employer] [id number] VITAMIN B12 AND FOLATES (826 07)Ordered By: Funeral Pre Arrangement Specialist on 10-07-2022 Cobalamin (Vitamin B12) [Mass/Vol] 469 pg/mL Normal 232-1245 [facility]; [facility] Work Phone: Comment on above: PATIENT WAS FASTINGP ERFORMED BY: [employer] Cvoyim22[address] [facility] [id number] BY: [employer] [id number] Folate [Mass/Vol] 17.1 ng/mL Normal Compreh ensive Internal Medicine; [facility] Work Phone: Comment on above: A serum folate amie ntration of less than 3.1 ng/mL isconsidered to represent clinical deficiency. PATIENT WAS FASTINGP ERFORMED BY: [employer] Gakjxq01[address] [facility] [id number] BY: [facility]1447 [facility] [id number] C-REACTIVE PROTEIN (92432)Or dered By: Funeral Pre Arrangement Specialist on 06-22-2022 CRP [Mass/Vol] 8 mg/L Normal 0-10 [facility] Internal Medicine; [facility] Work Phone: Comment on above: also send results to Dr. Robert - [phone]; A courtesy copy of this report has been sent to [phone] WAS FASTINGPERFORMED BY: PassworksSt. Lawrence Rehabilitation CenterFdeogo[address] [facility] [id number] CALCIFEDIOL (20735)Ordered B y: Funeral Pre Arrangement Specialist on 06-22-2022 25-hydroxyvitamin D [Mass/Vol] 64.9 ng/mL Normal 30.0-100.0 [facility]; [facility] Work Phone: Comment on above: Vitamin D deficiency has been defined by the [place] of[place]icine and an Endocrine Society practice guideline as alevel of serum 25-OH vitamin D less than 20 ng/mL (1,2).The Endocrine Society went on to further define vitamin Dinsufficiency as a level between 21 and 29 ng/mL (2).1. IOM ([place] of Medicine). 2010. Dietary reference intakes for calcium and D. [place]: The National Academies Press.2. Aurelia MCLAIN, Freddy BENAVIDES, Emi AZAR, et al. Evaluation, treatment, and prevention of vitamin D deficiency: an Endocrine Society clinical practice guideline. JCEM. 2010; 96(7):1911-30. also send results to Dr. Robert - [phone]; A courtesy copy of this report has been sent to [phone] WAS FASTINGPERFORMED BY: [employer] Rknikr16[address] [facility] [id number] CBC, PLATELETS & MANUAL DIFF (18672)Ordered By: Funeral Pre Arrangement Specialist on 06-22-2022 Basophils (Bld) [#/Vol] 0.1 10*3/uL Normal 0.0-0.2 [facility]; [facility] Work Phone: Comment on above: also send results to Dr. Yesica Shelton ; A courtesy copy of this report has been sent to [phone] WAS FASTINGPERFORMED BY: FERN [employer] Zvuzgh99[address] [facility] [id number] Information: FX DR. EVANGELISTA [phone] Basophils/100 WBC (Bld) 1 % Normal [facility]; [facility] Work Phone: Comment on above: also send results to Dr. Yesica Shelton ; A courtesy copy of this report has been sent to [phone] WAS FASTINGPERFORMED BY: FERN Deligickarolina MaciasGhogfl70[address] [facility] [id number] Information: FX DR. EVANGELISTA [phone] Eosinophils (Bld) [#/Vol] 0.3 10*3/uL Normal 0.0-0.4 [facility]; [facility] Work Phone: Comment on above: also send results to Dr. Yesica Shelton ; A courtesy copy of this report has been sent to [phone] WAS FASTINGPERFORMED BY: FERN Passworkstrent MaciasMwnxlu40[address] [facility] [id number] Information: FX DR. EVANGELISTA [phone] Eosinophils/100 WBC (Bld) 3 % Normal [facility]; [facility] Work Phone: Comment on above: also send results to Dr. Yesica Shelton ; A courtesy copy of this report has been sent to [phone] WAS FASTINGPERFORMED BY: FERN Passworkstrent MaciasCzczfu7[address] [facility] [id number] Information: FX DR. EVANGELISTA [phone] Erythrocyte distribution width (RBC) [Ratio] 12.8 % Normal 11.6-15.4 [facility]; [facility] Work Phone: Comment on above: also send results to Dr. Yesica Shelton [phone]; A courtesy copy of this report has been sent to [phone] WAS FASTINGPERFORMED BY: FENR Deligickarolina MaciasWyvldz5[address] [facility] [id number] Information: FX DR. EVANGELISTA [phone] Hematocrit (Bld) [Volume fraction] 47.1 % Normal 37.5-51.0 [facility]; [facility] Work Phone: Comment on above: also send results to Dr. Yesica Shelton ; A courtesy copy of this report has been sent to [phone] WAS FASTINGPERFORMED BY: FERN Deligickarolina MaciasAxwlfl70[address] [facility] [id number] Information: FX DR. EVANGELISTA [phone] Hemoglobin (Bld) [Mass/Vol] 16.1 g/dL Normal 13.0-17.7 [facility]; [facility] Work Phone: Comment on above: also send results to Dr. Yesica Shelton [phone]; A courtesy copy of this report has been sent to [phone] WAS FASTINGPERFORMED BY: FERN Maciaslin6[address] [facility] [id number] Information: FX DR. EVANGELISTA [phone] Immature granulocytes (Bld) [#/Vol] 0.0 10*3/uL Normal 0.0-0.1 [facility]; [facility] Work Phone: Comment on above: also send results to Dr. Robert [phone]; A courtesy copy of this report has been sent to [phone] WAS FASTINGPERFORMED BY: FERN Deligickarolina MaciasPcfoya22[address] [facility] [id number] Information: FX DR. EVANGELISTA [phone] Immature granulocytes/100 WBC (Bld) 0 % Normal [facility]; [facility] Work Phone: Comment on above: also send results to Dr. Yesica Shelton ; A courtesy copy of this report has been sent to [phone] WAS FASTINGPERFORMED BY: FERN Deligickarolina MaciasVderwk6[address] [facility] [id number] Information: FX DR. EVANGELISTA [phone] Lymphocytes (Bld) [#/Vol] 2.8 10*3/uL Normal 0.7-3.1 [facility]; [facility] Work Phone: Comment on above: also send results to Dr. Yesica Shelton ; A courtesy copy of this report has been sent to [phone] WAS FASTINGPERFORMED BY: FERN Deligickarolina MaciasQsxkau16[address] [facility] [id number] Information: FX DR. EVANGELISTA [phone] Lymphocytes/100 WBC (Bld) 30 % Normal [facility]; [facility] Work Phone: Comment on above: also send results to Dr. Yesica Shelton ; A courtesy copy of this report has been sent to [phone] WAS FASTINGPERFORMED BY: FERN Maciaslin[address] [facility] [id number] Information: FX DR. EVANGELISTA [phone] MCH (RBC) [Entitic mass] 31.4 pg Normal 26.6-33.0 [facility]; [facility] Work Phone: Comment on above: also send results to Dr. Yesica Shelton ; A courtesy copy of this report has been sent to [phone] WAS FASTINGPERFORMED BY: FERN [employer] Ibeatw11[address] [facility] [id number] Information: FX DR. EVANGELISTA [phone] MCHC (RBC) [Mass/Vol] 34.2 g/dL Normal 31.5-35.7 [facility] prehensive Internal Medicine; [facility] Work Phone: Comment on above: also send results to Dr. Yesica Shelton ; A courtesy copy of this report has been sent to [phone] WAS FASTINGPERFORMED BY: [facility]igicced[facility] Ryqtur9[address] [facility] [id number] Information: FX DR. EVANGELISTA [phone] MCV (RBC) [Entitic vol] 92 fL Normal 79-97 [facility]; [facility] Work Phone: Comment on above: also send results to Dr. Yesica Shelton ; A courtesy copy of this report has been sent to [phone] WAS FASTINGPERFORMED BY: [facility] [facility] [id number] Information: FX DR. EVANGELISTA [phone] Monocytes (Bld) [#/Vol] 0.6 10*3/uL Normal 0.1-0.9 [facility]; [facility] Work Phone: Comment on above: also send results to Dr. Yesica Shelton ; A courtesy copy of this report has been sent to [phone] WAS FASTINGPERFORMED BY: DeligicBronson [facility] [facility] [id number] Information: FX DR. EVANGELISTA [phone] Monocytes/100 WBC (Bld) 7 % Normal [facility]; [facility] Work Phone: Comment on above: also send results to Dr. Yesica Shelton ; A courtesy copy of this report has been sent to [phone] WAS FASTINGPERFORMED BY: [facility] [facility] [id number] Information: FX DR. EVANGELISTA [phone] Neutrophils (Bld) [#/Vol] 5.4 10*3/uL Normal 1.4-7.0 [facility]; [facility] Work Phone: Comment on above: also send results to Dr. Yesica Shelton ; A courtesy copy of this report has been sent to [phone] WAS FASTINGPERFORMED BY: CB LabBronson [facility] Hospital[address] [facility] [id number] Information: FX DR. EVANGELISTA [phone] Neutrophils/100 WBC (Bld) 59 % Normal [facility]; [facility] Work Phone: Comment on above: also send results to Dr. Robert [phone]; A courtesy copy of this report has been sent to [phone] WAS FASTINGPERFORMED BY: FERN [facility] Qamfiy49[address] [facility] [id number] Information: FX DR. EVANGELISTA [phone] Platelets (Bld) [#/Vol] 277 10*3/uL Normal 150-450 [facility]; [facility] Work Phone: Comment on above: also send results to Dr. Robert [phone]; A courtesy copy of this report has been sent to [phone] WAS FASTINGPERFORMED BY: FERN [facility] Healthkarolina MaciasLdfhpb[address] [facility] [id number] Information: FX DR. EVANGELISTA [phone] RBC (Bld) [#/Vol] 5.12 10*6/uL Normal 4.14-5.80 [facility]; [facility] Work Phone: Comment on above: also send results to Dr. Robert [phone]; A courtesy copy of this report has been sent to [phone] WAS FASTINGPERFORMED BY: FERN [facility] Healthkarolina MaciasQyxqqj70[address] [facility] [id number] Information: FX DR. EVANGELISTA [phone] WBC (Bld) [#/Vol] 9.2 10*3/uL Normal 3.4-10.8 [facility]; [facility] Work Phone: Comment on above: also send results to Dr. Robert [phone]; A courtesy copy of this report has been sent to [phone] WAS FASTINGPERFORMED BY: FERN [facility] Byloxy[address] [facility] [id number] Information: FX DR. EVANGELISTA [phone] HGB A1C (49461)Ordered By: S [employer]stem Archeology Faculty Member on 06-22-2022 HbA1c (Bld) [Mass fraction] 7.3 % Abnormal 4.8-5.6 [facility]; [facility] Work Phone: Comment on above: . Prediabetes: 5.7 - 6.4 Diabetes: >6.4 Glycemic control for adults with diabetes: <7.0 also send results to Dr. Yesica Shelton [phone]; A courtesy copy of this report has been sent to [phone] WAS FASTINGPERFORMED BY: FERN Deligickarolina Rosario[address] [facility] [id number] LIPID PANEL (38464)Ordered B y: Funeral Pre Arrangement Specialist on 06-22-2022 Cholesterol [Mass/Vol] 167 mg/dL Normal 100-199 [facility]; [facility] Work Phone: Comment on above: also send results to Dr. Yesica Shelton [phone]; A courtesy copy of this report has been sent to [phone] WAS FASTINGPERFORMED BY: FERN Rosario[address] [facility] [id number] Cholesterol in HDL [Mass/Vol] 38 mg/dL Abnormal [facility]; [facility] Work Phone: Comment on above: also send results to Dr. Yesica Shelton [phone]; A courtesy copy of this report has been sent to [phone] WAS FASTINGPERFORMED BY: FERN Rosario[address] [facility] [id number] Triglyceride [Mass/Vol] 222 mg/dL Abnormal 0-149 [facility]; [facility] Work Phone: Comment on above: also send results to Dr. Yesica Shelton [phone]; A courtesy copy of this report has been sent to [phone] WAS FASTINGPERFORMED BY: FERN Labkarolina MaciasTuusau[address] [facility] [id number] LIPID PANEL (41456) 38 mg/dL Normal 5-40 [facility] Internal Medicine; [facility] Work Phone: Comment on above: also send results to Dr. Yesica Shelton [phone]; A courtesy copy of this report has been sent to [phone] WAS FASTINGPERFORMED BY: FERN Rosario[address] [facility] [id number] LIPID PANEL (89862) 91 mg/dL Normal 0-99 [facility] Internal Medicine; [facility] Work Phone: Comment on above: also send results to Dr. Yesica Shelton [phone]; A courtesy copy of this report has been sent to [phone] WAS FASTINGPERFORMED BY: FERN [facility] JoplincWyzeColumbus Regional Healthcare System [id number] LIPID PANEL (27950) 2.4 {ratio} Normal 0.0-3.6 [facility] Internal Medicine; [facility] Work Phone: Comment on above: LDL/HDL Ratio Men Wo men 1/2 Avg.Risk 1.0 1.5 Avg.Risk 3.6 3.2 2X Avg.Risk 6.2 5.0 3X Avg.Risk 8.0 6.1 also send results to Dr. Yesica Shelton [phone]; A courtesy copy of this report has been sent to [phone] WAS FASTINGPERFORMED BY: FERN Labkarolina MaciasUdghki65[address] [facility] [id number] METABOLIC PANEL, COMPREHENSI VE (36912)Ordered By: Funeral Pre Arrangement Specialist on 06-22-2022 Albumin [Mass/Vol] 4.8 g/dL Normal 4.0-5.0 [facility]; [facility] Work Phone: Comment on above: also send results to Dr. Yesica Shelton [phone]; A courtesy copy of this report has been sent to [phone] WAS FASTINGPERFORMED BY: FERN Labkarolina MaciasFuymvy[address] [facility] [id number] Albumin/Globulin [Mass ratio] 1.7 {ratio} Normal 1.2-2.2 [facility]; [facility] Work Phone: Comment on above: also send results to Dr. Yesica Shelton [phone]; A courtesy copy of this report has been sent to [phone] WAS FASTINGPERFORMED BY: FERN Labkarolina MaciasZmqesg2341 Joyner RoadDublin [place] [id number] ALP [Catalytic activity/Vol] 126 U/L Abnormal 44-121 [facility]; [facility] Work Phone: Comment on above: also send results to Dr. Yesica Shelton [phone]; A courtesy copy of this report has been sent to [phone] WAS FASTINGPERFORMED BY: FERN Labkarolina MaciasZvrppo9536 [address]ner RoadDublin [place] [id number] ALT [Catalytic activity/Vol] 42 U/L Normal 0-44 [facility]; [facility] Work Phone: Comment on above: also send results to Dr. Yesica Shelton [phone]; A courtesy copy of this report has been sent to [phone] WAS FASTINGPERFORMED BY: FERN Rosario[address]370 [address] [facility] [place] [id number] AST [Catalytic activity/Vol] 31 U/L Normal 0-40 [facility]; [facility] Internal Medicine Work Phone: Comment on above: also send results to Dr. Yesica Shelton [phone]; A courtesy copy of this report has been sent to [phone] WAS FASTINGPERFORMED BY: FERN Labkarolina MaciasYondoc2900 Joyner RoadDuin [place] [id number] Bilirubin [Mass/Vol] 0.6 mg/dL Normal 0.0-1.2 [facility] Internal Medicine; [facility] Internal Medicine Work Phone: Comment on above: also send results to Dr. Yesica Shelton [phone]; A courtesy copy of this report has been sent to [phone] WAS FASTINGPERFORMED BY: FERN Martin[address] LeadjiniAtrium Health Mercyin [place] [id number] Calcium [Mass/Vol] 9.7 mg/dL Normal 8.7-10.2 [facility]; [facility] Work Phone: Comment on above: also send results to Dr. Robert - [phone]; A courtesy copy of this report has been sent to [phone] WAS FASTINGPERFORMED BY: FERN Labkarolina MaciasLnxjve9061 [facility]in [place] [id number] Chloride [Moles/Vol] 99 mmol/L Normal 96-106 [facility]; [facility] Work Phone: Comment on above: also send results to Dr. Robert - [phone]; A courtesy copy of this report has been sent to [phone] WAS FASTINGPERFORMED BY: FERN Rosario[address] LeadjiniFrye Regional Medical Center [id number] CO2 [Moles/Vol] 24 mmol/L Normal 20-29 [facility] Internal Medicine; [facility] Work Phone: Comment on above: also send results to Dr. Robert - [phone]; A courtesy copy of this report has been sent to [phone] WAS FASTINGPERFORMED BY: FERN Rosario[address] [facility] [id number] Creatinine [Mass/Vol] 0.87 mg/dL Normal 0.76-1.27 [facility] Internal Medicine; [facility] Work Phone: Comment on above: also send results to Dr. Yesica Shelton [phone]; A courtesy copy of this report has been sent to [phone] WAS FASTINGPERFORMED BY: FERN Maciaslin[address] [facility] [id number] GFR/1.73 sq M.predicted among non-blacks MDRD (S/P/Bld) [Vol rate/Area] 109 mL/min/{1.73_m2} Normal [facility]; [facility] Work Phone: Comment on above: also send results to Dr. Yesica Shelton [phone]; A courtesy copy of this report has been sent to [phone] WAS FASTINGPERFORMED BY: FERN Rosario[address] [place] [id number] Globulin (S) [Mass/Vol] 2.8 g/dL Normal 1.5-4.5 [facility]; [facility] Work Phone: Comment on above: also send results to Dr. Yesica Shelton ; A courtesy copy of this report has been sent to [phone] WAS FASTINGPERFORMED BY: FERN Labkarolina MaciasJzrjub[address] [facility] Hospitalbl[facility] [place] [id number] Glucose [Mass/Vol] 119 mg/dL Abnormal 70-99 [facility] Internal Medicine; [facility] Work Phone: Comment on above: also send results to Dr. Yesica Shelton ; A courtesy copy of this report has been sent to [phone] WAS FASTINGPERFORMED BY: FERN Labkarolina MaciasGkqfua[address] [facility]in [place] [id number] Potassium [Moles/Vol] 3.9 mmol/L Normal 3.5-5.2 [facility] Internal Medicine; [facility] Work Phone: Comment on above: also send results to Dr. Yesica Shelton ; A courtesy copy of this report has been sent to [phone] WAS FASTINGPERFORMED BY: FERN Labkarolina MaciasVfnyev[address] [facility]in [place] [id number] Protein [Mass/Vol] 7.6 g/dL Normal 6.0-8.5 [facility] Internal Medicine; [facility] Work Phone: Comment on above: also send results to Dr. Yesica Shelton [phone]; A courtesy copy of this report has been sent to [phone] WAS FASTINGPERFORMED BY: FERN Labkarolina MaciasHwcnqi[address] [facility]in [place] [id number] Sodium [Moles/Vol] 138 mmol/L Normal 134-144 [facility] Internal Medicine; [facility] Work Phone: Comment on above: also send results to Dr. Yesica Shelton [phone]; A courtesy copy of this report has been sent to [phone] WAS FASTINGPERFORMED BY: FERN Rosario[address] Perio SciencesColumbus Regional Healthcare System [id number] Urea nitrogen [Mass/Vol] 11 mg/dL Normal 6-24 [facility]; [facility] Work Phone: Comment on above: also send results to Dr. Yesica Shelton [phone]; A courtesy copy of this report has been sent to [phone] WAS FASTINGPERFORMED BY: FERN Rosario[address] Perio SciencesColumbus Regional Healthcare System [id number] Urea nitrogen/Creatinine [Mass ratio] 13 mg/mg Normal 9-20 [facility]; [facility] Work Phone: Comment on above: also send results to Dr. Yesica Shelton [phone]; A courtesy copy of this report has been sent to [phone] WAS FASTINGPERFORMED BY: FERN Rosario[address] Perio SciencesColumbus Regional Healthcare System [id number] MICROALBUMINOrdered By: Syst em Archeology Faculty Member on 06-22-2022 Albumin DL <= 20 mg/L (U) [Mass/Vol] 18.5 ug/mL Normal [facility]; [facility] Work Phone: Comment on above: also send results to Dr. Yesica Shelton [phone]; A courtesy copy of this report has been sent to [phone] WAS FASTINGPERFORMED BY: FERN Rosario6370 JoynerCitizens Memorial HealthcarecWyzeColumbus Regional Healthcare System [id number] Albumin/Creatinine (U) [Mass ratio] 15 {mg/g_creat} Normal 0-29 [facility]; [facility] Work Phone: Comment on above: Normal: 0 - 29 Moder ately increased: 30 - 300 Severely increased: >300 also send results to Dr. Robert - [phone]; A courtesy copy of this report has been sent to [phone] WAS FASTINGPERFORMED BY: FERN Labcotrent MaciasPdyxjf[address] [facility]in [place] [id number] Creatinine (U) [Mass/Vol] 127.3 mg/dL Normal [facility]; [facility] Work Phone: Comment on above: also send results to Dr. Robert - [phone]; A courtesy copy of this report has been sent to [phone] WAS FASTINGPERFORMED BY: FERN [facility] Kiwrds[address] LeadjiniAtrium Health Mercyin [place] [id number] TSH (THYROID STIMULATING HOR SAPNA) ([id number])Ordered By: Funeral Pre Arrangement Specialist on 06-22-2022 TSH Qn 1.380 {uIU/mL} Normal 0.450-4.500 [facility] Internal Medicine; [facility] Work Phone: Comment on above: also send results to Dr. Robert - [phone]; A courtesy copy of this report has been sent to [phone] WAS FASTINGPERFORMED BY: FERN [facility] Zfbssl1425 [facility] JoplincWyzeColumbus Regional Healthcare System [id number] CBC with auto diff ([id number])Or dered By: Funeral Pre Arrangement Specialist on 12-29-2021 Basophils (Bld) [#/Vol] 0.1 10*3/uL Normal 0.0-0.2 [facility]; [facility] Work Phone: Comment on above: PATIENT WAS FASTINGP ERFORMED BY: FERN [facility] Shkdar[address] [facility] HospitalDuin [place] [id number] Basophils/100 WBC (Bld) 1 % Normal [facility]; [facility] Work Phone: Comment on above: PATIENT WAS FASTINGP ERFORMED BY: CB [facility] Ukvlyc[address] [facility] HospitalDublin [place] [id number] Eosinophils (Bld) [#/Vol] 0.3 10*3/uL Normal 0.0-0.4 [facility]; [facility] Work Phone: Comment on above: PATIENT WAS FASTINGP ERFORMED BY: [facility] Tchwre56[address] RoadDublin [place] [id number] Eosinophils/100 WBC (Bld) 3 % Normal [facility]; [facility] Work Phone: Comment on above: PATIENT WAS FASTINGP ERFORMED BY: [facility] Txxkxe0477 [address] RoadDublin [place] [id number] Erythrocyte distribution width (RBC) [Ratio] 13.0 % Normal 11.6-15.4 [facility]; [facility] Work Phone: Comment on above: PATIENT WAS FASTINGP ERFORMED BY: CB [facility] Yvdwei4562 [address] RoadAtrium Health Mercyin [place] [id number] Hematocrit (Bld) [Volume fraction] 45.1 % Normal 37.5-51.0 [facility]; [facility] Work Phone: Comment on above: PATIENT WAS FASTINGP ERFORMED BY: CB [facility] Levztf5833 [address] RoadAtrium Health Mercyin [place] [id number] Hemoglobin (Bld) [Mass/Vol] 15.6 g/dL Normal 13.0-17.7 [facility]; [facility] Work Phone: Comment on above: PATIENT WAS FASTINGP ERFORMED BY: [facility] Bzmrlz2126 [address] RoadDublin [place] [id number] Immature granulocytes (Bld) [#/Vol] 0.0 10*3/uL Normal 0.0-0.1 [facility]; [facility] Work Phone: Comment on above: PATIENT WAS FASTINGP ERFORMED BY: CB [facility] Wflumi6[address] RoadDublin [place] [id number] Immature granulocytes/100 WBC (Bld) 0 % Normal [facility]; [facility] Work Phone: Comment on above: PATIENT WAS FASTINGP ERFORMED BY: CB [facility] Gwdcce6367 [address] RoadDublin [place] [id number] Lymphocytes (Bld) [#/Vol] 2.8 10*3/uL Normal 0.7-3.1 [facility]; [facility] Work Phone: Comment on above: PATIENT WAS FASTINGP ERFORMED BY: FERN Labcotrent RosarioYqdfmv8351 [address] RoadDublin [place] [id number] Lymphocytes/100 WBC (Bld) 28 % Normal [facility]; [facility] Work Phone: Comment on above: PATIENT WAS FASTINGP ERFORMED BY: FERN [facility] Igitko85[address] RoadDublin [place] [id number] MCH (RBC) [Entitic mass] 31.1 pg Normal 26.6-33.0 [facility]; [facility] Work Phone: Comment on above: PATIENT WAS FASTINGP ERFORMED BY: FERN Labcotrent Ineetc62[address] RoadDublin [place] [id number] MCHC (RBC) [Mass/Vol] 34.6 g/dL Normal 31.5-35.7 [facility] prehensive Internal Medicine; [facility] Work Phone: Comment on above: PATIENT WAS FASTINGP ERFORMED BY: FERN Labcotrent Kfrbpp1282 [address] RoadDublin [place] [id number] MCV (RBC) [Entitic vol] 90 fL Normal 79-97 [facility]; [facility] Work Phone: Comment on above: PATIENT WAS FASTINGP ERFORMED BY: FERN [facility] Fwhgre6264 [address] RoadDuin [place] [id number] Monocytes (Bld) [#/Vol] 0.7 10*3/uL Normal 0.1-0.9 [facility]; [facility] Work Phone: Comment on above: PATIENT WAS FASTINGP ERFORMED BY: FERN [facility] Yinmdb9651 [address] RoadDublin [place] [id number] Monocytes/100 WBC (Bld) 7 % Normal [facility]; [facility] Work Phone: Comment on above: PATIENT WAS FASTINGP ERFORMED BY: FERN [facility] Stzser8038 [address] RoadDublin [place] [id number] Neutrophils (Bld) [#/Vol] 6.0 10*3/uL Normal 1.4-7.0 [facility]; [facility] Work Phone: Comment on above: PATIENT WAS FASTINGP ERFORMED BY: FERN Genet Rosario[address]bl[address] [place] [id number] Neutrophils/100 WBC (Bld) 61 % Normal [facility]; [facility] Work Phone: Comment on above: PATIENT WAS FASTINGP ERFORMED BY: FERN Labcotrent RosarioCkmcjm035[address]bl[address] [place] [id number] Platelets (Bld) [#/Vol] 259 10*3/uL Normal 150-450 [facility]; [facility] Work Phone: Comment on above: PATIENT WAS FASTINGP ERFORMED BY: FERN Rontrent Hkeshe47[address] Roadblin [place] [id number] RBC (Bld) [#/Vol] 5.01 10*6/uL Normal 4.14-5.80 [facility]; [facility] Work Phone: Comment on above: PATIENT WAS FASTINGP ERFORMED BY: FERN Chrsikarolina Ixyxzt[address] [facility] HospitalDublin [place] [id number] WBC (Bld) [#/Vol] 9.9 10*3/uL Normal 3.4-10.8 [facility]; [facility] Work Phone: Comment on above: PATIENT WAS FASTINGP ERFORMED BY: FERN Lablaytrent Ezmsqc[address] [facility]bl[facility] [place] [id number] HGB A1C ([id number])Ordered By: S ystem Archeology Faculty Member on 12-29-2021 HbA1c (Bld) [Mass fraction] 7.4 % Abnormal 4.8-5.6 [facility]; [facility] Work Phone: Comment on above: . 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 Cholesterol [Mass/Vol] 176 mg/dL Normal 100-199 [facility]ensive [facility]; [facility] Work Phone: Comment on above: PATIENT WAS FASTINGP ERFORMED BY: FERN [facility] Qfsnnx5185 [address] RoadDublin [place] [id number] Cholesterol in HDL [Mass/Vol] 41 mg/dL Normal [facility]; [facility] Work Phone: Comment on above: PATIENT WAS FASTINGP ERFORMED BY: CB [facility] Uivnlo7639 [address] RoadDublin [place] [id number] Triglyceride [Mass/Vol] 227 mg/dL Abnormal 0-149 [facility]; [facility] Work Phone: Comment on above: PATIENT WAS FASTINGP ERFORMED BY: FERN [facility] Ostlrl2458 [address] RoadDublin [place] [id number] LIPID PANEL (89725) 39 mg/dL Normal 5-40 Compr ensive Internal Medicine; [facility] Work Phone: Comment on above: PATIENT WAS FASTINGP ERFORMED BY: CB [facility] Csknyv5759 [address] RoadDublin [place] [id number] LIPID PANEL (83175) 96 mg/dL Normal 0-99 [facility]; [facility] Work Phone: Comment on above: PATIENT WAS FASTINGP ERFORMED BY: CB [facility] Dntgxz9761 [address] RoadDublin [place] [id number] LIPID PANEL (50379) 2.3 {ratio} Normal 0.0-3.6 [facility]; [facility] Work Phone: Comment on above: LDL/HDL Ratio Men Wo men 1/2 Avg.Risk 1.0 1.5 Avg.Risk 3.6 3.2 2X Avg.Risk 6.2 5.0 3X Avg.Risk 8.0 6.1 PATIENT WAS FASTINGP ERFORMED BY: CB [facility] Unclgr2340 [address] RoadDublin [place] [id number] METABOLIC PANEL, COMPREHENSI VE (08518)Ordered By: Funeral Pre Arrangement Specialist on 12-29-2021 Albumin [Mass/Vol] 4.6 g/dL Normal 4.0-5.0 [facility]; [facility] Work Phone: Comment on above: PATIENT WAS FASTINGP ERFORMED BY: CB [facility] Dvxyft3115 [address] RoadDublin [place] [id number] Albumin/Globulin [Mass ratio] 1.6 {ratio} Normal 1.2-2.2 [facility]; [facility] Work Phone: Comment on above: PATIENT WAS FASTINGP ERFORMED BY: CB [facility] Czgmaw0959 [address] RoadDublin [place] [id number] ALP [Catalytic activity/Vol] 112 U/L Normal 44-121 [facility]; [facility] Work Phone: Comment on above: PATIENT WAS FASTINGP ERFORMED BY: CB [facility] Zmwaui6085 [address] RoadDublin [place] [id number] ALT [Catalytic activity/Vol] 34 U/L Normal 0-44 [facility]; [facility] Work Phone: Comment on above: PATIENT WAS FASTINGP ERFORMED BY: CB [facility] Awsljs5950 [address] RoadDublin [place] [id number] AST [Catalytic activity/Vol] 26 U/L Normal 0-40 [facility]; [facility] Work Phone: Comment on above: PATIENT WAS FASTINGP ERFORMED BY: CB [facility] Clmctr9746 [address] RoadDublin [place] [id number] Bilirubin [Mass/Vol] 0.5 mg/dL Normal 0.0-1.2 [facility] Internal Medicine; [facility] Internal Medicine Work Phone: Comment on above: PATIENT WAS FASTINGP ERFORMED BY: CB [facility] Meqbva9219 [address] RoadDublin [place] [id number] Calcium [Mass/Vol] 9.5 mg/dL Normal 8.7-10.2 [facility]; [facility] Work Phone: Comment on above: PATIENT WAS FASTINGP ERFORMED BY: CB [facility] Uczuqk2819 [address] RoadDublin [place] [id number] Chloride [Moles/Vol] 103 mmol/L Normal 96-106 [facility] rehensive Internal Medicine; [facility] Work Phone: Comment on above: PATIENT WAS FASTINGP ERFORMED BY: [facility] Fcdvmp[address] [facility]in [place] [id number] CO2 [Moles/Vol] 22 mmol/L Normal 20-29 [facility]; [facility] Work Phone: Comment on above: PATIENT WAS FASTINGP ERFORMED BY: [facility] Exfyxt[address] [facility] [id number] Creatinine [Mass/Vol] 0.90 mg/dL Normal 0.76-1.27 [facility]; [facility] Work Phone: Comment on above: PATIENT WAS FASTINGP ERFORMED BY: LabBronson [facility]View Hospital[address] [facility] [id number] GFR/1.73 sq M.predicted among non-blacks MDRD (S/P/Bld) [Vol rate/Area] 108 mL/min/{1.73_m2} Normal [facility]; [facility] Work Phone: Comment on above: PATIENT WAS FASTINGP ERFORMED BY: [facility] [facility] [id number] Globulin (S) [Mass/Vol] 2.9 g/dL Normal 1.5-4.5 [facility] Internal Medicine; [facility] Work Phone: Comment on above: PATIENT WAS FASTINGP ERFORMED BY: [facility] Lswpar[address] [facility] [id number] Glucose [Mass/Vol] 102 mg/dL Abnormal 65-99 [facility] Internal [facility]; [facility] Work Phone: Comment on above: PATIENT WAS FASTINGP ERFORMED BY: [facility] Lntpdt5227 [facility] Hospitalin [place] [id number] Potassium [Moles/Vol] 4.6 mmol/L Normal 3.5-5.2 Com prehensive Internal Medicine; [facility] Work Phone: Comment on above: PATIENT WAS FASTINGP ERFORMED BY: FERN Labcotrent Ttqbjc9794 [address] RoadDublin [place] [id number] Protein [Mass/Vol] 7.5 g/dL Normal 6.0-8.5 [facility]; [facility] Work Phone: Comment on above: PATIENT WAS FASTINGP ERFORMED BY: FERN [facility] Wumojb7503 [address] RoadDublin [place] [id number] Sodium [Moles/Vol] 140 mmol/L Normal 134-144 [facility]; [facility] Work Phone: Comment on above: PATIENT WAS FASTINGP ERFORMED BY: FERN Labcotrent Obvmlo0174 [address] RoadDublin [place] [id number] Urea nitrogen [Mass/Vol] 8 mg/dL Normal 6-24 [facility]; [facility] Work Phone: Comment on above: PATIENT WAS FASTINGP ERFORMED BY: FERN [facility] Kagegu4335 [address] RoadDublin [place] [id number] Urea nitrogen/Creatinine [Mass ratio] 9 mg/mg Normal 9-20 [facility]; [facility] Work Phone: Comment on above: PATIENT WAS FASTINGP ERFORMED BY: FERN Labcotrent Jetuxl1571 [address] RoadDublin [place] [id number] MICROALBUMINOrdered By: Syst em Archeology Faculty Member on 12-29-2021 Albumin DL <= 20 mg/L (U) [Mass/Vol] 13.8 ug/mL Normal [facility]; [facility] Work Phone: Comment on above: PATIENT WAS FASTINGP ERFORMED BY: FERN [facility] Eildom1833 [address] RoadDublin [place] [id number] Albumin/Creatinine (U) [Mass ratio] 12 {mg/g_creat} Normal 0-29 [facility]; [facility] Work Phone: Comment on above: Normal: 0 - 29 Moder ately increased: 30 - 300 Severely increased: >300 PATIENT WAS FASTINGP ERFORMED BY: Kout[address] LeadjiniFrye Regional Medical Center [id number] Creatinine (U) [Mass/Vol] 116.9 mg/dL Normal [facility]; [facility] Work Phone: Comment on above: PATIENT WAS FASTINGP ERFORMED BY: Kout[address] [facility] [id number] Vitamin D Hydroxy (22648)Ord ered By: Funeral Pre Arrangement Specialist on 12-29-2021 25-hydroxyvitamin D [Mass/Vol] 47.2 ng/mL Normal 30.0-100.0 [facility]; [facility] Work Phone: Comment on above: Vitamin D deficiency has been defined by the [place] ofMedicine and an Endocrine Society practice guideline as alevel of serum 25-OH vitamin D less than 20 ng/mL (1,2).The Endocrine Society went on to further define vitamin Dinsufficiency as a level between 21 and 29 ng/mL (2).1. IOM ([place] of Medicine). 2010. Dietary reference intakes for calcium and D. [place]: The National Academies Press.2. Aurelia MF, Freddy NC, Emi AZAR, et al. Evaluation, treatment, and prevention of vitamin D deficiency: an Endocrine Society clinical practice guideline. JCEM. 2010; 96(7):1911-30. PATIENT WAS FASTINGP ERFORMED BY: Kout[address] [facility] [id number] C-REACT PROT HIGH SENS(hsCRP ) (71435)Ordered By: Funeral Pre Arrangement Specialist on 09-08-2021 CRP High sensitivity method [Mass/Vol] 5.53 mg/L Abnormal 0.00-3.00 [facility]; [facility] Work Phone: Comment on above: Relative Risk for Fu ture Cardiovascular Event Low <1.00 Average 1.00 - 3.00 High >3.00 PATIENT WAS FASTINGP ERFORMED BY: In The Chat Communicationslin[address] [facility] [id number]; appt 3/4 HGB A1C (84598)Ordered By: S ystem Archeology Faculty Member on 09-08-2021 HbA1c (Bld) [Mass fraction] 7.9 % Abnormal 4.8-5.6 [facility]; [facility] Work Phone: Comment on above: . Prediabetes: 5.7 - 6.4 Diabetes: >6.4 Glycemic control for adults with diabetes: <7.0 PATIENT WAS FASTINGP ERFORMED BY: FERN Labcotrent Tyfdmw[address] [facility]blin [place] [id number] LIPID PANEL (24847)Ordered B y: Funeral Pre Arrangement Specialist on 09-08-2021 Cholesterol [Mass/Vol] 145 mg/dL Normal 100-199 Co [facility]woodensive [facility]; [facility] Work Phone: Comment on above: PATIENT WAS FASTINGP ERFORMED BY: FERN Labkarolina MaciasElulpu[address] [facility]in [place] [id number] Cholesterol in HDL [Mass/Vol] 38 mg/dL Abnormal [facility]; [facility] Work Phone: Comment on above: PATIENT WAS FASTINGP ERFORMED BY: FERN Labkarolina MaicasImskph[address] [facility]in [place] [id number] Triglyceride [Mass/Vol] 148 mg/dL Normal 0-149 [facility]; [facility] Work Phone: Comment on above: PATIENT WAS FASTINGP ERFORMED BY: FERN Labkarolina MaciasCgnhcj[address] [facility]in [place] [id number] LIPID PANEL (22769) 26 mg/dL Normal 5-40 [facility]; [facility] Work Phone: Comment on above: PATIENT WAS FASTINGP ERFORMED BY: FERN Labkarolina Gurfow[address] [facility]in [place] [id number] LIPID PANEL (81793) 81 mg/dL Normal 0-99 [facility]; [facility] Work Phone: Comment on above: PATIENT WAS FASTINGP ERFORMED BY: FERN Labkarolina Ezatty[address] [facility]in [place] [id number] LIPID PANEL (09849) 2.1 {ratio} Normal 0.0-3.6 [facility]; [facility] Work Phone: Comment on above: LDL/HDL Ratio Men Wo men 1/2 Avg.Risk 1.0 1.5 Avg.Risk 3.6 3.2 2X Avg.Risk 6.2 5.0 3X Avg.Risk 8.0 6.1 PATIENT WAS FASTINGP ERFORMED BY: [facility] [facility] [id number] METABOLIC PANEL, COMPREHENSI VE (83603)Ordered By: Funeral Pre Arrangement Specialist on 09-08-2021 Albumin [Mass/Vol] 4.9 g/dL Normal 4.0-5.0 [facility]; [facility] Work Phone: Comment on above: PATIENT WAS FASTINGP ERFORMED BY: [facility] [facility] [id number] Albumin/Globulin [Mass ratio] 1.8 {ratio} Normal 1.2-2.2 [facility]; [facility] Work Phone: Comment on above: PATIENT WAS FASTINGP ERFORMED BY: [facility] [facility] [id number] ALP [Catalytic activity/Vol] 109 U/L Normal 44-121 [facility]; [facility] Work Phone: Comment on above: PATIENT WAS FASTINGP ERFORMED BY: [facility] [facility] [id number] ALT [Catalytic activity/Vol] 38 U/L Normal 0-44 [facility]; [facility] Work Phone: Comment on above: PATIENT WAS FASTINGP ERFORMED BY: [facility] [facility] [id number] AST [Catalytic activity/Vol] 25 U/L Normal 0-40 [facility]; [facility] Work Phone: Comment on above: PATIENT WAS FASTINGP ERFORMED BY: [facility] [facility] [id number] Bilirubin [Mass/Vol] 0.7 mg/dL Normal 0.0-1.2 [facility] Internal Medicine; [facility] Work Phone: Comment on above: PATIENT WAS FASTINGP ERFORMED BY: FERN Velasquez Aifawe[address] [facility] [id number] Calcium [Mass/Vol] 10.0 mg/dL Normal 8.7-10.2 [facility]; [facility] Work Phone: Comment on above: PATIENT WAS FASTINGP ERFORMED BY: Ron Yyrhjo[address] [facility] [id number] Chloride [Moles/Vol] 99 mmol/L Normal 96-106 Comp rehensive Internal Medicine; [facility] Work Phone: Comment on above: PATIENT WAS FASTINGP ERFORMED BY: Ron Jubuuv[address] [facility] [id number] CO2 [Moles/Vol] 22 mmol/L Normal 20-29 [facility]; [facility] Work Phone: Comment on above: PATIENT WAS FASTINGP ERFORMED BY: Ron Salbve[address] [facility] [id number] Creatinine [Mass/Vol] 1.07 mg/dL Normal 0.76-1.27 [facility] prehensive Internal Medicine; [facility] Work Phone: Comment on above: PATIENT WAS FASTINGP ERFORMED BY: Ron Axwbzx[address] [facility] [id number] GFR/1.73 sq M.predicted among non-blacks MDRD (S/P/Bld) [Vol rate/Area] 88 mL/min/{1.73_m2} Normal Comprehensiv e Internal Medicine; [facility] Work Phone: Comment on above: In accordance with recommendations from the NKF-ASN Task force, [facility] has updated its eGFR calculation to the 2020 CKD-EPI creatinine equation that estimates kidney function without a race variable. PATIENT WAS FASTINGP ERFORMED BY: FERN Velasquez Ggdjlr[address] [facility] [id number] Globulin (S) [Mass/Vol] 2.7 g/dL Normal 1.5-4.5 [facility]; [facility] Work Phone: Comment on above: PATIENT WAS FASTINGP ERFORMED BY: FERN [facility] Dwehxl9703 [address] RoadDublin [place] [id number] Glucose [Mass/Vol] 87 mg/dL Normal 65-99 [facility]; [facility] Work Phone: Comment on above: PATIENT WAS FASTINGP ERFORMED BY: CB [facility] Pdesbx6082 [address] RoadDublin [place] [id number] Potassium [Moles/Vol] 4.4 mmol/L Normal 3.5-5.2 [facility]; [facility] Work Phone: Comment on above: PATIENT WAS FASTINGP ERFORMED BY: CB [facility] Kgeixv3424 [address] RoadDublin [place] [id number] Protein [Mass/Vol] 7.6 g/dL Normal 6.0-8.5 [facility]; [facility] Work Phone: Comment on above: PATIENT WAS FASTINGP ERFORMED BY: [facility] Rcfwug6633 [address] RoadDublin [place] [id number] Sodium [Moles/Vol] 138 mmol/L Normal 134-144 [facility]; [facility] Work Phone: Comment on above: PATIENT WAS FASTINGP ERFORMED BY: [facility] Fmgetn2152 [address] RoadDublin [place] [id number] Urea nitrogen [Mass/Vol] 10 mg/dL Normal 6-24 [facility] Internal Medicine; [facility] Work Phone: Comment on above: PATIENT WAS FASTINGP ERFORMED BY: [facility] Lxylqy3750 [address] RoadDublin [place] [id number] Urea nitrogen/Creatinine [Mass ratio] 9 mg/mg Normal 9-20 [facility] Internal Medicine; [facility] Work Phone: Comment on above: PATIENT WAS FASTINGP ERFORMED BY: CB [facility] Yuksou0823 [address] RoadDublin [place] [id number] Vitamin D Hydroxy (50236)Ord ered By: Funeral Pre Arrangement Specialist on 09-08-2021 25-hydroxyvitamin D [Mass/Vol] 83.0 ng/mL Normal 30.0-100.0 [facility]; [facility] Work Phone: Comment on above: Vitamin D deficiency has been defined by the [place] of[place]icine and an Endocrine Society practice guideline as alevel of serum 25-OH vitamin D less than 20 ng/mL (1,2).The Endocrine Society went on to further define vitamin Dinsufficiency as a level between 21 and 29 ng/mL (2).1. IOM ([place] of [employer]). 2010. Dietary reference intakes for calcium and D. [place]: The National Academies Press.2. Aurelia MF, Freddy BENAVIDES, Emi AZAR, et al. Evaluation, treatment, and prevention of vitamin D deficiency: an Endocrine Society clinical practice guideline. JCEM. 2010; 96(7):1911-30. PATIENT WAS FASTINGP ERFORMED BY: [employer] [place] [id number] CBC W/AUTO DIFF WBC (58009)O rdered By: Funeral Pre Arrangement Specialist on 05-07-2021 Basophils (Bld) [#/Vol] 0.0 10*3/uL Normal 0.0-0.2 [facility]; [facility] Work Phone: Comment on above: PATIENT WAS FASTINGP ERFORMED BY: Netronome SystemsColumbus Regional Healthcare System [id number] Information: NURSE DRAW Basophils/100 WBC (Bld) 1 % Normal [facility]; [facility] Work Phone: Comment on above: PATIENT WAS FASTINGP ERFORMED BY: Total Boox70 500 LuchadoresColumbus Regional Healthcare System [id number] Information: NURSE DRAW Eosinophils (Bld) [#/Vol] 0.4 10*3/uL Normal 0.0-0.4 [facility]; [facility] Work Phone: Comment on above: PATIENT WAS FASTINGP ERFORMED BY: Netronome SystemsColumbus Regional Healthcare System [id number] Information: NURSE DRAW Eosinophils/100 WBC (Bld) 4 % Normal [facility]; [facility] Work Phone: Comment on above: PATIENT WAS FASTINGP ERFORMED BY: FERN Velasquez Hfxwsg[address] [facility] [id number] Information: NURSE DRAW Erythrocyte distribution width (RBC) [Ratio] 13.3 % Normal 11.6-15.4 [facility]; [facility] Work Phone: Comment on above: PATIENT WAS FASTINGP ERFORMED BY: FERN [facility]Research [facility] Wgnubo[address] [id number] Information: NURSE DRAW Hematocrit (Bld) [Volume fraction] 45.1 % Normal 37.5-51.0 [facility]; [facility] Work Phone: Comment on above: PATIENT WAS FASTINGP ERFORMED BY: FERN [facility] Ceoait56[address] [id number] Information: NURSE DRAW Hemoglobin (Bld) [Mass/Vol] 15.4 g/dL Normal 13.0-17.7 [facility]; [facility] Work Phone: Comment on above: PATIENT WAS FASTINGP ERFORMED BY: FERN [facility] Ogetvk67[address] [id number] Information: NURSE DRAW Immature granulocytes (Bld) [#/Vol] 0.0 10*3/uL Normal 0.0-0.1 [facility]; [facility] Work Phone: Comment on above: PATIENT WAS FASTINGP ERFORMED BY: FERN Perez[address] [id number] Information: NURSE DRAW Immature granulocytes/100 WBC (Bld) 0 % Normal [facility]; [facility] Work Phone: Comment on above: PATIENT WAS FASTINGP ERFORMED BY: FERN Velasquez Aevohy[address] [id number] Information: NURSE DRAW Lymphocytes (Bld) [#/Vol] 3.0 10*3/uL Normal 0.7-3.1 [facility]; [facility] Work Phone: Comment on above: PATIENT WAS FASTINGP ERFORMED BY: FERN RonSt. Lawrence Rehabilitation CenterMiocno[address] [facility] [id number] Information: NURSE DRAW Lymphocytes/100 WBC (Bld) 36 % Normal [facility]; [facility] Work Phone: Comment on above: PATIENT WAS FASTINGP ERFORMED BY: FERN [facility] Yvejjx[address] [facility] [id number] Information: NURSE DRAW MCH (RBC) [Entitic mass] 30.7 pg Normal 26.6-33.0 [facility]; [facility] Work Phone: Comment on above: PATIENT WAS FASTINGP ERFORMED BY: FERN [facility] Vdyezh7[address] [facility] [id number] Information: NURSE DRAW MCHC (RBC) [Mass/Vol] 34.1 g/dL Normal 31.5-35.7 [facility] prehensive Internal Medicine; [facility] Work Phone: Comment on above: PATIENT WAS FASTINGP ERFORMED BY: FERN [place] 38749[address] [facility] [id number] Information: NURSE DRAW MCV (RBC) [Entitic vol] 90 fL Normal 79-97 [facility]; [facility] Work Phone: Comment on above: PATIENT WAS FASTINGP ERFORMED BY: FERN [place] 3978[address] [facility] [id number] Information: NURSE DRAW Monocytes (Bld) [#/Vol] 0.7 10*3/uL Normal 0.1-0.9 [facility]; [facility] Work Phone: Comment on above: PATIENT WAS FASTINGP ERFORMED BY: FERN LabWesley [place] 3874970 [facility] [id number] Information: NURSE DRAW Monocytes/100 WBC (Bld) 9 % Normal [facility]; [facility] Work Phone: Comment on above: PATIENT WAS FASTINGP ERFORMED BY: FERN LabWesley [place] 3874970 [facility] [id number] Information: NURSE DRAW Neutrophils (Bld) [#/Vol] 4.2 10*3/uL Normal 1.4-7.0 [facility]; [facility] Work Phone: Comment on above: PATIENT WAS FASTINGP ERFORMED BY: FERN Martin[address] [facility] [id number] Information: NURSE DRAW Neutrophils/100 WBC (Bld) 50 % Normal [facility]; [facility] Work Phone: Comment on above: PATIENT WAS FASTINGP ERFORMED BY: FERN [facility] Mqufbi[address] [facility] [id number] Information: NURSE DRAW Platelets (Bld) [#/Vol] 261 10*3/uL Normal 150-450 [facility]; [facility] Work Phone: Comment on above: PATIENT WAS FASTINGP ERFORMED BY: FERN [facility] Xcuaed[address] [id number] Information: NURSE DRAW RBC (Bld) [#/Vol] 5.01 10*6/uL Normal 4.14-5.80 [facility] Internal Medicine; [facility] Work Phone: Comment on above: PATIENT WAS FASTINGP ERFORMED BY: FERN Genet Maciaslin[address] [facility] [id number] Information: NURSE DRAW WBC (Bld) [#/Vol] 8.4 10*3/uL Normal 3.4-10.8 [facility]; [facility] Work Phone: Comment on above: PATIENT WAS FASTINGP ERFORMED BY: FERN [facility] Fnjnew[address] [facility] [id number] Information: NURSE DRAW METABOLIC PANEL, JAMAL AYERS ([id number])Ordered By: Funeral Pre Arrangement Specialist on 05-07-2021 Albumin [Mass/Vol] 4.5 g/dL Normal 4.0-5.0 [facility] Internal [facility]; [facility] Work Phone: Comment on above: PATIENT WAS FASTINGP ERFORMED BY: FERN ChrisM[facility] Center6370 [facility] Medical Centerblin [place] [id number] Albumin/Globulin [Mass ratio] 1.6 {ratio} Normal 1.2-2.2 [facility]; [facility] Work Phone: Comment on above: PATIENT WAS FASTINGP ERFORMED BY: FERN Velasquez Atkdzh[address] [facility] Hospitalblin [place] [id number] ALP [Catalytic activity/Vol] 106 U/L Normal 44-121 [facility]; [facility] Work Phone: Comment on above: Please note refere nce interval change PATIENT WAS FASTINGP ERFORMED BY: [facility] Kuidgd[address] [facility]in [place] [id number] ALT [Catalytic activity/Vol] 47 U/L Abnormal 0-44 [facility]; [facility] Work Phone: Comment on above: PATIENT WAS FASTINGP ERFORMED BY: [facility] Dkqslp[address] [facility] [place] [id number] AST [Catalytic activity/Vol] 33 U/L Normal 0-40 [facility]; [facility] Work Phone: Comment on above: PATIENT WAS FASTINGP ERFORMED BY: [facility] Xwmodh[address] [facility]in [place] [id number] Bilirubin [Mass/Vol] 0.4 mg/dL Normal 0.0-1.2 Comp rehensive Internal Medicine; [facility] Work Phone: Comment on above: PATIENT WAS FASTINGP ERFORMED BY: [facility] Tzqvyp[address] [facility]in [place] [id number] Calcium [Mass/Vol] 9.3 mg/dL Normal 8.7-10.2 [facility] Internal [facility]; [facility] Work Phone: Comment on above: PATIENT WAS FASTINGP ERFORMED BY: [facility] Zjpvis6909 [address] [facility] [place] [id number] Chloride [Moles/Vol] 104 mmol/L Normal 96-106 Comp rehensive Internal Medicine; [facility] Work Phone: Comment on above: PATIENT WAS FASTINGP ERFORMED BY: FERN Rosario6370 JoynerCitizens Memorial HealthcareHermannColumbus Regional Healthcare System [id number] CO2 [Moles/Vol] 22 mmol/L Normal 20-29 [facility] Internal Medicine; [facility] Work Phone: Comment on above: PATIENT WAS FASTINGP ERFORMED BY: FERN Maciaslin[address] [facility] [id number] Creatinine [Mass/Vol] 0.96 mg/dL Normal 0.76-1.27 [facility]; [facility] Work Phone: Comment on above: PATIENT WAS FASTINGP ERFORMED BY: Ron Yfkogs[address] [facility] [id number] GFR/1.73 sq M.predicted among blacks CKD-EPI (S/P/Bld) [Vol rate/Area] 111 mL/min/1.73 Normal [facility]; [facility] Work Phone: Comment on above: In accordance with recommendations from the NKF-ASN Task force, [facility] updating [facility] eGFR calculation to the 2020 CKD-EPI creatinine equation that estimates kidney function without a race variable. PATIENT WAS FASTINGP ERFORMED BY: FERN Rosario[address] [facility] [id number] GFR/1.73 sq M.predicted among non-blacks CKD-EPI (S/P/Bld) [Vol rate/Area] 96 mL/min/1.73 Normal [facility]; [facility] Work Phone: Comment on above: PATIENT WAS FASTINGP ERFORMED BY: Ron Ybkbsz[address] [facility] [id number] Globulin (S) [Mass/Vol] 2.8 g/dL Normal 1.5-4.5 [facility]; [facility] Work Phone: Comment on above: PATIENT WAS FASTINGP ERFORMED BY: Ron Ghmfkt[address] [facility] [id number] Glucose [Mass/Vol] 120 mg/dL Abnormal 65-99 Compre hensive Internal Medicine; [facility] Work Phone: Comment on above: PATIENT WAS FASTINGP ERFORMED BY: FERN [facility] Dswucc4769 [address] RoadDublin [place] [id number] Potassium [Moles/Vol] 4.1 mmol/L Normal 3.5-5.2 [facility] Internal Medicine; [facility] Work Phone: Comment on above: PATIENT WAS FASTINGP ERFORMED BY: CB [facility] Xgnonj9197 [address] RoadDublin [place] [id number] Protein [Mass/Vol] 7.3 g/dL Normal 6.0-8.5 [facility]; [facility] Work Phone: Comment on above: PATIENT WAS FASTINGP ERFORMED BY: CB [facility] Zmihex8524 [address] RoadDublin [place] [id number] Sodium [Moles/Vol] 141 mmol/L Normal 134-144 [facility]; [facility] Work Phone: Comment on above: PATIENT WAS FASTINGP ERFORMED BY: FERN [facility] Wqdume6886 [address] RoadDublin [place] [id number] Urea nitrogen [Mass/Vol] 9 mg/dL Normal 6-24 [facility]; [facility] Work Phone: Comment on above: PATIENT WAS FASTINGP ERFORMED BY: FERN [facility] Vqjkop9707 [address] RoadDublin [place] [id number] Urea nitrogen/Creatinine [Mass ratio] 9 mg/mg Normal 9-20 [facility] Internal Medicine; [facility] Work Phone: Comment on above: PATIENT WAS FASTINGP ERFORMED BY: CB [facility] Wbyohw2811 [address] RoadDublin [place] [id number] CBC, PLATELETS & MANUAL DIFF ([id number])Ordered By: Funeral Pre Arrangement Specialist on 03-26-2021 Basophils (Bld) [#/Vol] 0.1 10*3/uL Normal 0.0-0.2 [facility]; [facility] Work Phone: Comment on above: PATIENT NOT FASTINGP ERFORMED BY: [facility] Mwpejo2062 [address] RoadDublin [place] [id number] Basophils/100 WBC (Bld) 0 % Normal [facility]; [facility] Work Phone: Comment on above: PATIENT NOT FASTINGP ERFORMED BY: FERN Rosario[address] FelipeColumbus Regional Healthcare System [id number] Eosinophils (Bld) [#/Vol] 0.1 10*3/uL Normal 0.0-0.4 [facility]; [facility] Work Phone: Comment on above: PATIENT NOT FASTINGP ERFORMED BY: FERN [facility] Mgoyva8674 [address] [facility] [id number] Eosinophils/100 WBC (Bld) 0 % Normal [facility]; [facility] Work Phone: Comment on above: PATIENT NOT FASTINGP ERFORMED BY: FERN Velasquez Xqnhvh7[address] [facility] [id number] Erythrocyte distribution width (RBC) [Ratio] 13.0 % Normal 11.6-15.4 [facility]; [facility] Work Phone: Comment on above: PATIENT NOT FASTINGP ERFORMED BY: FERN Velasquez Fyosfq[address] [facility] [id number] Hematocrit (Bld) [Volume fraction] 45.6 % Normal 37.5-51.0 [facility]; [facility] Work Phone: Comment on above: PATIENT NOT FASTINGP ERFORMED BY: FERN Velasquez Fmvnth9361 [address] [facility] [id number] Hemoglobin (Bld) [Mass/Vol] 15.6 g/dL Normal 13.0-17.7 [facility]; [facility] Work Phone: Comment on above: PATIENT NOT FASTINGP ERFORMED BY: FERN [facility] Ebdcnf9065 [address] [facility] [id number] Immature granulocytes (Bld) [#/Vol] 0.4 10*3/uL Abnormal 0.0-0.1 [facility]; [facility] Work Phone: Comment on above: (An elevated percent age of Immature Granulocytes has not been foundto be clinically significant as a sole clinical predictor of disease.Does NOT include bands or blast cells. associatedphysiological leukocytosis may also show increased immaturegranulocytes without clinical significance.) PATIENT NOT FASTINGP ERFORMED BY: CB [facility] Lprmtb0890 [address] RoadDublin [place] [id number] Immature granulocytes/100 WBC (Bld) 3 % Normal [facility]; [facility] Work Phone: Comment on above: PATIENT NOT FASTINGP ERFORMED BY: CB [facility] Buwvsz9[address] [facility]in [place] [id number] Lymphocytes (Bld) [#/Vol] 2.2 10*3/uL Normal 0.7-3.1 [facility]; [facility] Work Phone: Comment on above: PATIENT NOT FASTINGP ERFORMED BY: [facility] Vxfqau9635 [address] [facility] [id number] Lymphocytes/100 WBC (Bld) 17 % Normal [facility]; [facility] Work Phone: Comment on above: PATIENT NOT FASTINGP ERFORMED BY: [facility] Dlhnou2090 [address] [facility] [id number] MCH (RBC) [Entitic mass] 31.0 pg Normal 26.6-33.0 [facility] Internal Medicine; [facility] Work Phone: Comment on above: PATIENT NOT FASTINGP ERFORMED BY: [facility] Jxdrnk8278 [address] [facility]in [place] [id number] MCHC (RBC) [Mass/Vol] 34.2 g/dL Normal 31.5-35.7 [facility] prehensive Internal Medicine; [facility] Work Phone: Comment on above: PATIENT NOT FASTINGP ERFORMED BY: CB [facility] Tquvcd7[address] [facility]blin [place] [id number] MCV (RBC) [Entitic vol] 91 fL Normal 79-97 [facility]; [facility] Work Phone: Comment on above: PATIENT NOT FASTINGP ERFORMED BY: CB [facility] Gsixvd7068 [address] [facility]in [place] [id number] Monocytes (Bld) [#/Vol] 0.8 10*3/uL Normal 0.1-0.9 [facility]; [facility] Work Phone: Comment on above: PATIENT NOT FASTINGP ERFORMED BY: FERN Rosario6370 [address] RoadDublin [place] [id number] Monocytes/100 WBC (Bld) 6 % Normal [facility]; [facility] Work Phone: Comment on above: PATIENT NOT FASTINGP ERFORMED BY: FERN [facility] Rokkln3411 [address] RoadDublin [place] [id number] Neutrophils (Bld) [#/Vol] 9.7 10*3/uL Abnormal 1.4-7.0 [facility]; [facility] Work Phone: Comment on above: PATIENT NOT FASTINGP ERFORMED BY: FERN Genet Rosario6370 [address] RoadDublin [place] [id number] Neutrophils/100 WBC (Bld) 74 % Normal [facility]; [facility] Work Phone: Comment on above: PATIENT NOT FASTINGP ERFORMED BY: FERN Genet Rosario6370 [address] RoadDublin [place] [id number] Platelets (Bld) [#/Vol] 687 10*3/uL Abnormal 150-450 [facility]; [facility] Work Phone: Comment on above: PATIENT NOT FASTINGP ERFORMED BY: FERN Ron Gjjmom1521 [address] RoadDublin [place] [id number] RBC (Bld) [#/Vol] 5.04 10*6/uL Normal 4.14-5.80 Compr ensive Internal Medicine; [facility] Work Phone: Comment on above: PATIENT NOT FASTINGP ERFORMED BY: FERN [facility] Skcmiq0732 [address] RoadDublin [place] [id number] WBC (Bld) [#/Vol] 13.1 10*3/uL Abnormal 3.4-10.8 Compr ehensive Internal Medicine; [facility] Work Phone: Comment on above: PATIENT NOT FASTINGP ERFORMED BY: CB [facility] Jadqvb3922 [address] RoadDublin [place] [id number] METABOLIC PANEL, COMPREHENSI VE ([id number])Ordered By: Funeral Pre Arrangement Specialist on 03-26-2021 Albumin [Mass/Vol] 4.1 g/dL Normal 4.0-5.0 [facility]; [facility] Work Phone: Comment on above: PATIENT NOT FASTINGP ERFORMED BY: CB [facility] Zsltam8414 Joyner RoadDublin [place] [id number] Albumin/Globulin [Mass ratio] 1.3 {ratio} Normal 1.2-2.2 [facility]; [facility] Work Phone: Comment on above: PATIENT NOT FASTINGP ERFORMED BY: CB [facility] Qsnogh6728 [address]ner RoadDublin [place] [id number] ALP [Catalytic activity/Vol] 94 U/L Normal 44-121 [facility]; [facility] Work Phone: Comment on above: Please note refere nce interval change PATIENT NOT FASTINGP ERFORMED BY: CB [facility] Lzgogn7180 [address]ner RoadDublin [place] [id number] ALT [Catalytic activity/Vol] 55 U/L Abnormal 0-44 [facility]; [facility] Work Phone: Comment on above: PATIENT NOT FASTINGP ERFORMED BY: CB [facility] Fsbunp3585 [address]ner RoadDublin [place] [id number] AST [Catalytic activity/Vol] 35 U/L Normal 0-40 [facility]; [facility] Work Phone: Comment on above: PATIENT NOT FASTINGP ERFORMED BY: CB [facility] Vohyjj1094 [address] RoadDublin [place] [id number] Bilirubin [Mass/Vol] 0.4 mg/dL Normal 0.0-1.2 [facility]; [facility] Work Phone: Comment on above: PATIENT NOT FASTINGP ERFORMED BY: CB [facility] Bxispn8046 [address] RoadDublin [place] [id number] Calcium [Mass/Vol] 9.9 mg/dL Normal 8.7-10.2 [facility]; [facility] Work Phone: Comment on above: PATIENT NOT FASTINGP ERFORMED BY: FERN Velasquez Arqhjx8642 Joyner RoadFrye Regional Medical Center [id number] Chloride [Moles/Vol] 98 mmol/L Normal 96-106 Comp rehensive Internal Medicine; [facility] Work Phone: Comment on above: PATIENT NOT FASTINGP ERFORMED BY: [facility] Fcxpmc7369 [address] RoadAtrium Health Mercyin [place] [id number] CO2 [Moles/Vol] 25 mmol/L Normal 20-29 [facility]; [facility] Work Phone: Comment on above: PATIENT NOT FASTINGP ERFORMED BY: [facility] Muihwz4[address] [facility] [id number] Creatinine [Mass/Vol] 0.77 mg/dL Normal 0.76-1.27 [facility] prehensive Internal Medicine; [facility] Work Phone: Comment on above: PATIENT NOT FASTINGP ERFORMED BY: [facility] Dfkflq5[address] [facility] [id number] GFR/1.73 sq M.predicted among blacks CKD-EPI (S/P/Bld) [Vol rate/Area] 128 mL/min/1.73 Normal [facility]; [facility] Work Phone: Comment on above: [facility] currently reports eGFR in compliance with the current recommendations of the National Kidney Foundation. [facility] will update reporting as new guidelines are published from the NKF-ASN Task force. PATIENT NOT FASTINGP ERFORMED BY: [facility] Ihbvha3264 [address] [facility] [id number] GFR/1.73 sq M.predicted among non-blacks CKD-EPI (S/P/Bld) [Vol rate/Area] 111 mL/min/1.73 Normal [facility]; [facility] Work Phone: Comment on above: PATIENT NOT FASTINGP ERFORMED BY: [facility] Egmsqx0852 [address] [facility] [id number] Globulin (S) [Mass/Vol] 3.2 g/dL Normal 1.5-4.5 [facility] Internal Medicine; [facility] Work Phone: Comment on above: PATIENT NOT FASTINGP ERFORMED BY: FERN LabKarolina Rosario6370 [address] RoadDublin [place] [id number] Glucose [Mass/Vol] 192 mg/dL Abnormal 65-99 [facility]; [facility] Work Phone: Comment on above: PATIENT NOT FASTINGP ERFORMED BY: CB [facility] Inffxx7588 [address] RoadDublin [place] [id number] Potassium [Moles/Vol] 4.9 mmol/L Normal 3.5-5.2 [facility] Internal Medicine; [facility] Work Phone: Comment on above: PATIENT NOT FASTINGP ERFORMED BY: FERN Maciaslin6370 [address] RoadAtrium Health Mercyin [place] [id number] Protein [Mass/Vol] 7.3 g/dL Normal 6.0-8.5 [facility]; [facility] Work Phone: Comment on above: PATIENT NOT FASTINGP ERFORMED BY: FERN LabCotrent MaciasRwsykf2763 [address] RoadDublin [place] [id number] Sodium [Moles/Vol] 137 mmol/L Normal 134-144 [facility]; [facility] Work Phone: Comment on above: PATIENT NOT FASTINGP ERFORMED BY: FERN LabLayrp Snhiui8172 [address] Roadblin [place] [id number] Urea nitrogen [Mass/Vol] 12 mg/dL Normal 6-24 [facility]; [facility] Work Phone: Comment on above: PATIENT NOT FASTINGP ERFORMED BY: FERN [facility] Potlbj7317 [address] RoadDublin [place] [id number] Urea nitrogen/Creatinine [Mass ratio] 16 mg/mg Normal 9-20 [facility]; [facility] Work Phone: Comment on above: PATIENT NOT FASTINGP ERFORMED BY: FERN [facility] Bjyfyu57[address] [facility]in [place] [id number] C-REACT PROT HIGH SENS(hsCRP ) (12880)Ordered By: Funeral Pre Arrangement Specialist on 07-08-2020 CRP High sensitivity method [Mass/Vol] 3.61 mg/L Abnormal 0.00-3.00 [facility]; [facility] Work Phone: Comment on above: Relative Risk for Fu ture Cardiovascular Event Low <1.00 Average 1.00 - 3.00 High >3.00 PATIENT WAS FASTINGP ERFORMED BY: FERN [facility] Djhhyi[address] [facility] [id number] LIPID PANEL ([id number])Ordered B y: Funeral Pre Arrangement Specialist on 07-08-2020 Cholesterol [Mass/Vol] 128 mg/dL Normal 100-199 [facility]ensive [facility]; [facility] Work Phone: Comment on above: PATIENT WAS FASTINGP ERFORMED BY: FERN LabMarketocracy[address] LeadjiniFrye Regional Medical Center [id number] Cholesterol in HDL [Mass/Vol] 45 mg/dL Normal [facility]; [facility] Work Phone: Comment on above: PATIENT WAS FASTINGP ERFORMED BY: FERN LabCallYourPrice Ommtnl[address] [facility] [id number] Cholesterol in LDL/Cholesterol in HDL [Mass ratio] 1.4 {ratio} Normal 0.0-3.6 [facility]; [facility] Work Phone: Comment on above: LDL/HDL Ratio Men Wo men 1/2 Avg.Risk 1.0 1.5 Avg.Risk 3.6 3.2 2X Avg.Risk 6.2 5.0 3X Avg.Risk 8.0 6.1 PATIENT WAS FASTINGP ERFORMED BY: FERN [facility] Buwxiv38[address] [facility] [id number] Triglyceride [Mass/Vol] 94 mg/dL Normal 0-149 [facility]; [facility] Work Phone: Comment on above: PATIENT WAS FASTINGP ERFORMED BY: FERN [facility] Issyzp[address] [facility] [id number] LIPID PANEL (09384) 65 mg/dL Normal 0-99 Compr ehensive Internal Medicine; [facility] Work Phone: Comment on above: PATIENT WAS FASTINGP ERFORMED BY: FERN [facility] Lalyun6101 [address] RoadDublin [place] [id number] LIPID PANEL (05899) 18 mg/dL Normal 5-40 [facility] Internal Medicine; [facility] Work Phone: Comment on above: PATIENT WAS FASTINGP ERFORMED BY: CB [facility] Nnyefo0101 [address] Roadblin [place] [id number] LIPID PANEL (85430) 1.4 {ratio} Normal 0.0-3.6 [facility] Internal Medicine; [facility] Work Phone: Comment on above: LDL/HDL Ratio Men Wo men 1/2 Avg.Risk 1.0 1.5 Avg.Risk 3.6 3.2 2X Avg.Risk 6.2 5.0 3X Avg.Risk 8.0 6.1 PATIENT WAS FASTINGP ERFORMED BY: FERN [facility] Xliqvo1866 [address] [facility] [id number] METABOLIC PANEL, COMPREHENSI VE ([id number])Ordered By: Funeral Pre Arrangement Specialist on 07-08-2020 Albumin [Mass/Vol] 5.0 g/dL Normal 4.0-5.0 [facility]; [facility] Work Phone: Comment on above: PATIENT WAS FASTINGP ERFORMED BY: FERN [facility] Ymodxe[address] [facility] [place] [id number] Albumin/Globulin [Mass ratio] 1.9 {ratio} Normal 1.2-2.2 [facility] Internal Medicine; [facility] Work Phone: Comment on above: PATIENT WAS FASTINGP ERFORMED BY: CB [facility] Fjksdt3605 [address] RoadDublin [place] [id number] ALP [Catalytic activity/Vol] 103 [iU]/L Normal 39-117 [facility] Internal Medicine; [facility] Work Phone: Comment on above: PATIENT WAS FASTINGP ERFORMED BY: FERN [facility] Wbqbud2686 [address] RoadDublin [place] [id number] ALP [Catalytic activity/Vol] 103 U/L Normal 39-117 [facility]; [facility] Work Phone: Comment on above: PATIENT WAS FASTINGP ERFORMED BY: FERN LabCotrent Rxnzbe2176 [address] RoadDublin [place] [id number] ALT [Catalytic activity/Vol] 30 [iU]/L Normal 0-44 [facility]; [facility] Work Phone: Comment on above: PATIENT WAS FASTINGP ERFORMED BY: FERN [facility] Urgejm4489 [address] RoadDublin [place] [id number] ALT [Catalytic activity/Vol] 30 U/L Normal 0-44 [facility]; [facility] Work Phone: Comment on above: PATIENT WAS FASTINGP ERFORMED BY: FERN LabKarolina MaciasSwdiax8011 [address] RoadDublin [place] [id number] AST [Catalytic activity/Vol] 22 [iU]/L Normal 0-40 [facility]; [facility] Work Phone: Comment on above: PATIENT WAS FASTINGP ERFORMED BY: FERN LabLay Vkfhjf2474 [address] RoadDublin [place] [id number] AST [Catalytic activity/Vol] 22 U/L Normal 0-40 [facility]; [facility] Work Phone: Comment on above: PATIENT WAS FASTINGP ERFORMED BY: FERN LabCotrent Stoizw1134 [address] RoadDublin [place] [id number] Bilirubin [Mass/Vol] 0.5 mg/dL Normal 0.0-1.2 [facility]ensive [facility]; [facility] Work Phone: Comment on above: PATIENT WAS FASTINGP ERFORMED BY: FERN [facility] Upatzk1536 [address] RoadDublin [place] [id number] Calcium [Mass/Vol] 9.6 mg/dL Normal 8.7-10.2 [facility]; [facility] Work Phone: Comment on above: PATIENT WAS FASTINGP ERFORMED BY: CB [facility] Kxavsv5686 [address] RoadDublin [place] [id number] Chloride [Moles/Vol] 103 mmol/L Normal 96-106 Comp rehensive Internal Medicine; [facility] Work Phone: Comment on above: PATIENT WAS FASTINGP ERFORMED BY: CB [facility] Dcrgqa8356 [address] RoadDublin [place] [id number] CO2 [Moles/Vol] 22 mmol/L Normal 20-29 [facility] Internal Medicine; [facility] Work Phone: Comment on above: PATIENT WAS FASTINGP ERFORMED BY: CB [facility] Ntvkie1085 [address]ner RoadFrye Regional Medical Center [id number] Creatinine [Mass/Vol] 0.89 mg/dL Normal 0.76-1.27 [facility]; [facility] Work Phone: Comment on above: PATIENT WAS FASTINGP ERFORMED BY: CB [facility] Fweuht3897 [address] RoadAtrium Health Mercyin [place] [id number] GFR/1.73 sq M predicted among blacks CKD-EPI (S/P/Bld) [Vol rate/Area] 122 mL/min/1.73 Normal [facility]; [facility] Work Phone: Comment on above: PATIENT WAS FASTINGP ERFORMED BY: CB [facility] Fzwvqr8194 [address] RoadDuin [place] [id number] GFR/1.73 sq M predicted among non-blacks CKD-EPI (S/P/Bld) [Vol rate/Area] 105 mL/min/1.73 Normal [facility]; [facility] Work Phone: Comment on above: PATIENT WAS FASTINGP ERFORMED BY: CB [facility] Prkedi1275 [address] [facility] [id number] Globulin (S) [Mass/Vol] 2.7 g/dL Normal 1.5-4.5 [facility]; [facility] Work Phone: Comment on above: PATIENT WAS FASTINGP ERFORMED BY: CB [facility] Sdeulk7[address] [facility]in [place] [id number] Glucose [Mass/Vol] 90 mg/dL Normal 65-99 [facility] Internal [facility]; [facility] Work Phone: Comment on above: PATIENT WAS FASTINGP ERFORMED BY: FERN [facility] Digxmm2187 [address] RoadDublin [place] [id number] Potassium [Moles/Vol] 4.3 mmol/L Normal 3.5-5.2 [facility]; [facility] Work Phone: Comment on above: PATIENT WAS FASTINGP ERFORMED BY: CB [facility] Xedrln5594 [address] RoadDublin [place] [id number] Protein [Mass/Vol] 7.7 g/dL Normal 6.0-8.5 [facility]; [facility] Work Phone: Comment on above: PATIENT WAS FASTINGP ERFORMED BY: CB [facility] Lrclsd9017 [address] RoadDublin [place] [id number] Sodium [Moles/Vol] 140 mmol/L Normal 134-144 [facility]; [facility] Work Phone: Comment on above: PATIENT WAS FASTINGP ERFORMED BY: CB [facility] Sqkswq4163 [address] RoadDublin [place] [id number] Urea nitrogen [Mass/Vol] 7 mg/dL Normal 6-24 [facility] Internal Medicine; [facility] Work Phone: Comment on above: PATIENT WAS FASTINGP ERFORMED BY: CB [facility] Naukzl4783 [address] RoadDublin [place] [id number] Urea nitrogen/Creatinine [Mass ratio] 8 mg/mg Abnormal 9-20 [facility]; [facility] Work Phone: Comment on above: PATIENT WAS FASTINGP ERFORMED BY: CB [facility] Rhtxym6682 [address] RoadDublin [place] [id number] Vitamin D Hydroxy (25033)Ord ered By: Funeral Pre Arrangement Specialist on 07-08-2020 25-Hydroxyvitamin D2+25-Hydroxyvitamin D3 [Mass/Vol] 41.0 ng/mL Normal 30.0-100.0 [facility]; [facility] Work Phone: Comment on above: Vitamin D deficiency has been defined by the [place] of[place]icine and an Endocrine Society practice guideline as alevel of serum 25-OH vitamin D less than 20 ng/mL (1,2).The Endocrine Society went on to further define vitamin Dinsufficiency as a level between 21 and 29 ng/mL (2).1. IOM ([place] of Medicine). 2010. Dietary reference intakes for calcium and D. [place]: The National Academies Press.2. Aurelia MF, Freddy BENAVIDES, Emi AZAR, et al. Evaluation, treatment, and prevention of vitamin D deficiency: an Endocrine Society clinical practice guideline. JCEM. 2010; 96(7):1911-30. PATIENT WAS FASTINGP ERFORMED BY: CloudSplitRobert Ville 9848170 [facility] [id number] CBC W/AUTO DIFF WBC (45339)O rdered By: Funeral Pre Arrangement Specialist on 03-23-2020 Basophils (Bld) [#/Vol] 0.0 {x10E3/uL} Normal 0.0-0.2 [facility] Work Phone: Comment on above: PATIENT WAS FASTINGP ERFORMED BY: DeligicMarshfield Medical Center[address] [place] [address] [id number] Information: NURSE DRAW Basophils (Bld) [#/Vol] 0.0 10*3/uL Normal 0.0-0.2 [facility]; [facility] Work Phone: Comment on above: PATIENT WAS FASTINGP ERFORMED BY: DeligicMarshfield Medical Center[address] [place] [address] [id number] Information: NURSE DRAW Basophils/100 WBC (Bld) 1 % Normal [facility] Work Phone: Comment on above: PATIENT WAS FASTINGP ERFORMED BY: Deligic[address] [id number] Information: NURSE DRAW Eosinophils (Bld) [#/Vol] 0.4 {x10E3/uL} Normal 0.0-0.4 [facility] Work Phone: Comment on above: PATIENT WAS FASTINGP ERFORMED BY: [address] [id number] Information: NURSE DRAW Eosinophils (Bld) [#/Vol] 0.4 10*3/uL Normal 0.0-0.4 [facility]; [facility] Work Phone: Comment on above: PATIENT WAS FASTINGP ERFORMED BY: FERN Perez[address] [id number] Information: NURSE DRAW Eosinophils/100 WBC (Bld) 4 % Normal [facility] Work Phone: Comment on above: PATIENT WAS FASTINGP ERFORMED BY: [address] [id number] Information: NURSE DRAW Erythrocyte distribution width (RBC) [Ratio] 13.0 % Normal 11.6-15.4 [facility] Work Phone: Comment on above: PATIENT WAS FASTINGP ERFORMED BY: [address] [id number] Information: NURSE DRAW Hematocrit (Bld) [Volume fraction] 45.7 % Normal 37.5-51.0 [facility] Work Phone: Comment on above: PATIENT WAS FASTINGP ERFORMED BY: [address] [id number] Information: NURSE DRAW Hemoglobin (Bld) [Mass/Vol] 15.8 g/dL Normal 13.0-17.7 [facility] Work Phone: Comment on above: PATIENT WAS FASTINGP ERFORMED BY: [address] [id number] Information: NURSE DRAW Immature granulocytes (Bld) [#/Vol] 0.0 {x10E3/uL} Normal 0.0-0.1 [facility] Work Phone: Comment on above: PATIENT WAS FASTINGP ERFORMED BY: [address] [id number] Information: NURSE DRAW Immature granulocytes (Bld) [#/Vol] 0.0 10*3/uL Normal 0.0-0.1 [facility]; [facility] Work Phone: Comment on above: PATIENT WAS FASTINGP ERFORMED BY: FERN [place] [id number] [facility] [id number] Information: NURSE DRAW Immature granulocytes/100 WBC (Bld) 0 % Normal [facility] Work Phone: Comment on above: PATIENT WAS FASTINGP ERFORMED BY: FERN [address] [id number] Information: NURSE DRAW Lymphocytes (Bld) [#/Vol] 2.6 {x10E3/uL} Normal 0.7-3.1 [facility] Internal Medicine Work Phone: Comment on above: PATIENT WAS FASTINGP ERFORMED BY: FERN [address] [id number] Information: NURSE DRAW Lymphocytes (Bld) [#/Vol] 2.6 10*3/uL Normal 0.7-3.1 [facility]; [facility] Work Phone: Comment on above: PATIENT WAS FASTINGP ERFORMED BY: [address] [id number] Information: NURSE DRAW Lymphocytes/100 WBC (Bld) 29 % Normal [facility] Internal Medicine Work Phone: Comment on above: PATIENT WAS FASTINGP ERFORMED BY: FERN [address] [id number] Information: NURSE DRAW MCH (RBC) [Entitic mass] 31.6 pg Normal 26.6-33.0 [facility] Internal Medicine Work Phone: Comment on above: PATIENT WAS FASTINGP ERFORMED BY: [address] [id number] Information: NURSE DRAW MCHC (RBC) [Mass/Vol] 34.6 g/dL Normal 31.5-35.7 [facility] Internal Medicine Work Phone: Comment on above: PATIENT WAS FASTINGP ERFORMED BY: [address] [id number] Information: NURSE DRAW MCV (RBC) [Entitic vol] 91 fL Normal 79-97 [facility] Work Phone: Comment on above: PATIENT WAS FASTINGP ERFORMED BY: FERN Ron Fqyyln[address] [facility] [id number] Information: NURSE DRAW Monocytes (Bld) [#/Vol] 0.6 {x10E3/uL} Normal 0.1-0.9 [facility] Work Phone: Comment on above: PATIENT WAS FASTINGP ERFORMED BY: [address] [id number] Information: NURSE DRAW Monocytes (Bld) [#/Vol] 0.6 10*3/uL Normal 0.1-0.9 [facility]; [facility] Work Phone: Comment on above: PATIENT WAS FASTINGP ERFORMED BY: [address] [id number] Information: NURSE DRAW Monocytes/100 WBC (Bld) 7 % Normal [facility] Work Phone: Comment on above: PATIENT WAS FASTINGP ERFORMED BY: [address] [id number] Information: NURSE DRAW Neutrophils (Bld) [#/Vol] 5.1 {x10E3/uL} Normal 1.4-7.0 [facility] Work Phone: Comment on above: PATIENT WAS FASTINGP ERFORMED BY: [address] [id number] Information: NURSE DRAW Neutrophils (Bld) [#/Vol] 5.1 10*3/uL Normal 1.4-7.0 [facility]; [facility] Work Phone: Comment on above: PATIENT WAS FASTINGP ERFORMED BY: [address] [id number] Information: NURSE DRAW Neutrophils/100 WBC (Bld) 59 % Normal [facility] Work Phone: Comment on above: PATIENT WAS FASTINGP ERFORMED BY: FERN ChrisKarolina MaciasJfxrgc[address] [facility] [id number] Information: NURSE DRAW Platelets (Bld) [#/Vol] 256 {x10E3/uL} Normal 150-450 [facility] Internal Medicine Work Phone: Comment on above: PATIENT WAS FASTINGP ERFORMED BY: FERN [facility] Irqxcg25[address] [facility] [id number] Information: NURSE DRAW Platelets (Bld) [#/Vol] 256 10*3/uL Normal 150-450 [facility]; [facility] Work Phone: Comment on above: PATIENT WAS FASTINGP ERFORMED BY: FERN ChrisKarolina MaciasGzjafb85[address] [facility] [id number] Information: NURSE DRAW RBC (Bld) [#/Vol] 5.00 {x10E6/uL} Normal 4.14-5.80 [facility] Internal Medicine Work Phone: Comment on above: PATIENT WAS FASTINGP ERFORMED BY: FERN [facility] Qrqzfr7354 [facility] [id number] Information: NURSE DRAW RBC (Bld) [#/Vol] 5.00 10*6/uL Normal 4.14-5.80 [facility] Internal Medicine; [facility] Work Phone: Comment on above: PATIENT WAS FASTINGP ERFORMED BY: FERN [facility] HealthL[facility] Iutazz[address] [facility] [id number] Information: NURSE DRAW WBC (Bld) [#/Vol] 8.7 {x10E3/uL} Normal 3.4-10.8 [facility] Internal Medicine Work Phone: Comment on above: PATIENT WAS FASTINGP ERFORMED BY: FERN [place] [id number] [facility] [id number] Information: NURSE DRAW WBC (Bld) [#/Vol] 8.7 10*3/uL Normal 3.4-10.8 [facility] Internal Medicine; [facility] Work Phone: Comment on above: PATIENT WAS FASTINGP ERFORMED BY: CB [facility] Wxyhac7597 [address] RoadDublin [place] [id number] Information: NURSE DRAW METABOLIC PANEL, JAMAL AYERS ([id number])Ordered By: Funeral Pre Arrangement Specialist on 03-23-2020 Albumin [Mass/Vol] 4.5 g/dL Normal 4.0-5.0 [facility] Internal Medicine Work Phone: Comment on above: PATIENT WAS FASTINGP ERFORMED BY: CB [facility] Pewtpd1790 [address] RoadDublin [place] [id number] Albumin/Globulin [Mass ratio] 1.7 {ratio} Normal 1.2-2.2 [facility] Work Phone: Comment on above: PATIENT WAS FASTINGP ERFORMED BY: CB [facility] Zjjegl3196 [address] RoadDublin [place] [id number] ALP [Catalytic activity/Vol] 106 [iU]/L Normal 39-117 [facility] Work Phone: Comment on above: PATIENT WAS FASTINGP ERFORMED BY: CB [facility] Cljqbh7615 [address] RoadDublin [place] [id number] ALP [Catalytic activity/Vol] 106 U/L Normal 39-117 [facility]; [facility] Work Phone: Comment on above: PATIENT WAS FASTINGP ERFORMED BY: CB [facility] Fardmi6879 [address] RoadDublin [place] [id number] ALT [Catalytic activity/Vol] 23 [iU]/L Normal 0-44 [facility] Work Phone: Comment on above: PATIENT WAS FASTINGP ERFORMED BY: CB [facility] Cqhqkk9679 [address] RoadDublin [place] [id number] ALT [Catalytic activity/Vol] 23 U/L Normal 0-44 [facility]; [facility] Work Phone: Comment on above: PATIENT WAS FASTINGP ERFORMED BY: CB [facility] Xxzanc4150 [address] RoadDublin [place] [id number] AST [Catalytic activity/Vol] 18 [iU]/L Normal 0-40 [facility] Work Phone: Comment on above: PATIENT WAS FASTINGP ERFORMED BY: FERN [facility] Ufoiml[address] RoadDublin [place] [id number] AST [Catalytic activity/Vol] 18 U/L Normal 0-40 [facility]; [facility] Work Phone: Comment on above: PATIENT WAS FASTINGP ERFORMED BY: CB [facility] Qixdrd1526 [address] RoadDublin [place] [id number] Bilirubin [Mass/Vol] 0.4 mg/dL Normal 0.0-1.2 [facility] rehensive Internal Medicine Work Phone: Comment on above: PATIENT WAS FASTINGP ERFORMED BY: FERN [facility] Nagqqa7351 [address] RoadDublin [place] [id number] Calcium [Mass/Vol] 9.6 mg/dL Normal 8.7-10.2 [facility] Internal Medicine Work Phone: Comment on above: PATIENT WAS FASTINGP ERFORMED BY: FERN [facility] Mfmgba4227 [address] RoadDublin [place] [id number] Chloride [Moles/Vol] 102 mmol/L Normal 96-106 [facility] Work Phone: Comment on above: PATIENT WAS FASTINGP ERFORMED BY: FERN [facility] Thbdpo2064 [address] RoadDublin [place] [id number] CO2 [Moles/Vol] 25 mmol/L Normal 20-29 [facility] Internal Medicine Work Phone: Comment on above: PATIENT WAS FASTINGP ERFORMED BY: CB [facility] Blidna9[address] RoadDublin [place] [id number] Creatinine [Mass/Vol] 0.89 mg/dL Normal 0.76-1.27 [facility] Work Phone: Comment on above: PATIENT WAS FASTINGP ERFORMED BY: CB [facility] Kozbfh3300 [address] RoadDublin [place] [id number] GFR/1.73 sq M predicted among blacks CKD-EPI (S/P/Bld) [Vol rate/Area] 122 mL/min/1.73 Normal [facility] Internal Medicine Work Phone: Comment on above: PATIENT WAS FASTINGP ERFORMED BY: FERN [facility] Xwjqvi6471 [address] RoadDublin [place] [id number] GFR/1.73 sq M predicted among non-blacks CKD-EPI (S/P/Bld) [Vol rate/Area] 105 mL/min/1.73 Normal [facility] Internal Medicine Work Phone: Comment on above: PATIENT WAS FASTINGP ERFORMED BY: [facility] Vnuuxl6063 [address] Roadblin [place] [id number] Globulin (S) [Mass/Vol] 2.7 g/dL Normal 1.5-4.5 [facility] Internal Medicine Work Phone: Comment on above: PATIENT WAS FASTINGP ERFORMED BY: [facility] Vbxjwi0000 [address] RoadDublin [place] [id number] Glucose [Mass/Vol] 135 mg/dL Abnormal 65-99 [facility] Internal Medicine Work Phone: Comment on above: PATIENT WAS FASTINGP ERFORMED BY: [facility] Lzhdvk5584 [address] Roadblin [place] [id number] Potassium [Moles/Vol] 4.4 mmol/L Normal 3.5-5.2 [facility] Internal Medicine Work Phone: Comment on above: PATIENT WAS FASTINGP ERFORMED BY: [facility] Bitznf6[address] RoadDublin [place] [id number] Protein [Mass/Vol] 7.2 g/dL Normal 6.0-8.5 [facility] Internal Medicine Work Phone: Comment on above: PATIENT WAS FASTINGP ERFORMED BY: [facility] Fmovwb6299 [address] RoadDublin [place] [id number] Sodium [Moles/Vol] 141 mmol/L Normal 134-144 [facility] Internal Medicine Work Phone: Comment on above: PATIENT WAS FASTINGP ERFORMED BY: [facility] Ruplmd4238 [address] RoadDublin [place] [id number] Urea nitrogen [Mass/Vol] 10 mg/dL Normal 6-24 [facility] Internal Medicine Work Phone: Comment on above: PATIENT WAS FASTINGP ERFORMED BY: [facility] Wtruhn[address] Perio SciencesColumbus Regional Healthcare System [id number] Urea nitrogen/Creatinine [Mass ratio] 11 mg/mg Normal 9-20 [facility] Work Phone: Comment on above: PATIENT WAS FASTINGP ERFORMED BY: [facility] Qywijv2762 500 LuchadoresColumbus Regional Healthcare System [id number] MICROALBUMINOrdered By: Syst em Archeology Faculty Member on 03-23-2020 Albumin DL <= 20 mg/L (U) [Mass/Vol] 10.0 ug/mL Normal [facility] Work Phone: Comment on above: PATIENT WAS FASTINGP ERFORMED BY: [facility] Nzusse[address] LeadjiniFrye Regional Medical Center [id number] Albumin/Creatinine (U) [Mass ratio] 8 {mg/g_creat} Normal 0-29 [facility] Work Phone: Comment on above: Normal: 0 - 29 Moder ately increased: 30 - 300 Severely increased: >300 Please note reference interval change PATIENT WAS FASTINGP ERFORMED BY: [facility] Hlapng[address] Perio SciencesColumbus Regional Healthcare System [id number] Creatinine (U) [Mass/Vol] 129.9 mg/dL Normal [facility] Work Phone: Comment on above: PATIENT WAS FASTINGP ERFORMED BY: [facility] Zpeuzf[address] LeadjiniFrye Regional Medical Center [id number] HgA1C , Office ([id number])Ordere d By: Esthela Briceño on 12-09-2019 HbA1c (Bld) [Mass fraction] 7.2 % Abnormal 4.6 - 7.1 [facility] Work Phone: Comment on above: poked him before I r ealized he sees endo - sorry CBC W/AUTO DIFF WBC (47531)O rdered By: Funeral Pre Arrangement Specialist on 11-26-2019 Basophils (Bld) [#/Vol] 0.1 {x10E3/uL} Normal 0.0-0.2 [facility] Work Phone: Comment on above: PATIENT WAS FASTINGP ERFORMED BY: [facility]blin [place] [id number] Basophils (Bld) [#/Vol] 0.1 10*3/uL Normal 0.0-0.2 [facility]; [facility] Work Phone: Comment on above: PATIENT WAS FASTINGP ERFORMED BY: [facility] Fwltho2332 [address] Roadblin [place] [id number] Basophils/100 WBC (Bld) 1 % Normal [facility] Work Phone: Comment on above: PATIENT WAS FASTINGP ERFORMED BY: [facility] RoadAtrium Health Mercyin [place] [id number] Eosinophils (Bld) [#/Vol] 0.1 {x10E3/uL} Normal 0.0-0.4 [facility] Work Phone: Comment on above: PATIENT WAS FASTINGP ERFORMED BY: [facility] Gvdeao[address] [facility] [id number] Eosinophils (Bld) [#/Vol] 0.1 10*3/uL Normal 0.0-0.4 [facility]; [facility] Work Phone: Comment on above: PATIENT WAS FASTINGP ERFORMED BY: [facility] [facility]in [place] [id number] Eosinophils/100 WBC (Bld) 1 % Normal [facility] Work Phone: Comment on above: PATIENT WAS FASTINGP ERFORMED BY: [facility] [facility] [id number] Erythrocyte distribution width (RBC) [Ratio] 13.2 % Normal 11.6-15.4 [facility] Work Phone: Comment on above: PATIENT WAS FASTINGP ERFORMED BY: [facility] [facility] [id number] Hematocrit (Bld) [Volume fraction] 48.2 % Normal 37.5-51.0 [facility] Work Phone: Comment on above: PATIENT WAS FASTINGP ERFORMED BY: [place] [address] [facility] [id number] Hemoglobin (Bld) [Mass/Vol] 16.1 g/dL Normal 13.0-17.7 [facility] Work Phone: Comment on above: PATIENT WAS FASTINGP ERFORMED BY: [facility] [facility] [id number] Immature granulocytes (Bld) [#/Vol] 0.0 {x10E3/uL} Normal 0.0-0.1 [facility] Work Phone: Comment on above: PATIENT WAS FASTINGP ERFORMED BY: [place] 5758[address] RoadAtrium Health Mercyin [place] [id number] Immature granulocytes (Bld) [#/Vol] 0.0 10*3/uL Normal 0.0-0.1 [facility]; [facility] Work Phone: Comment on above: PATIENT WAS FASTINGP ERFORMED BY: [place] [address] [facility] [id number] Immature granulocytes/100 WBC (Bld) 0 % Normal [facility] Work Phone: Comment on above: PATIENT WAS FASTINGP ERFORMED BY: [place] [address] [facility] [id number] Lymphocytes (Bld) [#/Vol] 2.4 {x10E3/uL} Normal 0.7-3.1 [facility] Work Phone: Comment on above: PATIENT WAS FASTINGP ERFORMED BY: [place] 5758270 [address] RoadFrye Regional Medical Center [id number] Lymphocytes (Bld) [#/Vol] 2.4 10*3/uL Normal 0.7-3.1 [facility]; [facility] Work Phone: Comment on above: PATIENT WAS FASTINGP ERFORMED BY: [place] [address]758[address] Roadblin [place] [id number] Lymphocytes/100 WBC (Bld) 28 % Normal [facility] Work Phone: Comment on above: PATIENT WAS FASTINGP ERFORMED BY: FERN [facility] Xjtnoe6309 [address] RoadDublin [place] [id number] MCH (RBC) [Entitic mass] 31.0 pg Normal 26.6-33.0 [facility] Internal Medicine Work Phone: Comment on above: PATIENT WAS FASTINGP ERFORMED BY: LabCoUnion County General HospitalNtrnna4663 [address] Roadblin [place] [id number] MCHC (RBC) [Mass/Vol] 33.4 g/dL Normal 31.5-35.7 [facility] Internal Medicine Work Phone: Comment on above: PATIENT WAS FASTINGP ERFORMED BY: [facility] Crzchi[address] [facility] Hospitalblin [place] [id number] MCV (RBC) [Entitic vol] 93 fL Normal 79-97 [facility] Internal Medicine Work Phone: Comment on above: PATIENT WAS FASTINGP ERFORMED BY: LabM[facility] Center6[address] RoadAtrium Health Mercyin [place] [id number] Monocytes (Bld) [#/Vol] 0.7 {x10E3/uL} Normal 0.1-0.9 [facility] Work Phone: Comment on above: PATIENT WAS FASTINGP ERFORMED BY: [facility] Wiadcl2170 [address] Roadblin [place] [id number] Monocytes (Bld) [#/Vol] 0.7 10*3/uL Normal 0.1-0.9 [facility]; [facility] Work Phone: Comment on above: PATIENT WAS FASTINGP ERFORMED BY: [facility] Cfowza5236 [address] RoadDublin [place] [id number] Monocytes/100 WBC (Bld) 8 % Normal [facility] Work Phone: Comment on above: PATIENT WAS FASTINGP ERFORMED BY: [facility] Pdayni[address] [facility] Hospitalblin [place] [id number] Neutrophils (Bld) [#/Vol] 5.3 {x10E3/uL} Normal 1.4-7.0 [facility] Work Phone: Comment on above: PATIENT WAS FASTINGP ERFORMED BY: CB [facility] Vcjtck6[address] RoadDublin [place] [id number] Neutrophils (Bld) [#/Vol] 5.3 10*3/uL Normal 1.4-7.0 [facility]; [facility] Work Phone: Comment on above: PATIENT WAS FASTINGP ERFORMED BY: CB [facility] Mcirvs9325 [address] RoadDublin [place] [id number] Neutrophils/100 WBC (Bld) 62 % Normal [facility] Work Phone: Comment on above: PATIENT WAS FASTINGP ERFORMED BY: CB [facility] Dzepaz0323 [address] RoadDublin [place] [id number] Platelets (Bld) [#/Vol] 252 {x10E3/uL} Normal 150-450 [facility] Work Phone: Comment on above: PATIENT WAS FASTINGP ERFORMED BY: CB [facility] Kjqbzy5970 [address] RoadDublin [place] [id number] Platelets (Bld) [#/Vol] 252 10*3/uL Normal 150-450 [facility]; [facility] Work Phone: Comment on above: PATIENT WAS FASTINGP ERFORMED BY: CB [facility] Gyhvia7757 [address] RoadDublin [place] [id number] RBC (Bld) [#/Vol] 5.19 {x10E6/uL} Normal 4.14-5.80 [facility] Internal Medicine Work Phone: Comment on above: PATIENT WAS FASTINGP ERFORMED BY: CB [facility] Ezvako5[address] RoadDublin [place] [id number] RBC (Bld) [#/Vol] 5.19 10*6/uL Normal 4.14-5.80 [facility] Internal Medicine; [facility] Work Phone: Comment on above: PATIENT WAS FASTINGP ERFORMED BY: CB [facility] Gvfmvh7[address] RoadDublin [place] [id number] WBC (Bld) [#/Vol] 8.6 {x10E3/uL} Normal 3.4-10.8 [facility] Work Phone: Comment on above: PATIENT WAS FASTINGP ERFORMED BY: FERN [facility] Hhimfj9205 [address] RoadDublin [place] [id number] WBC (Bld) [#/Vol] 8.6 10*3/uL Normal 3.4-10.8 [facility]; [facility] Work Phone: Comment on above: PATIENT WAS FASTINGP ERFORMED BY: FERN [facility] Epxpfd6[address] RoadDublin [place] [id number] LIPID PANEL ([id number])Ordered B y: Funeral Pre Arrangement Specialist on 11-26-2019 Cholesterol [Mass/Vol] 149 mg/dL Normal 100-199 [facility] Work Phone: Comment on above: PATIENT WAS FASTINGP ERFORMED BY: FERN LabKarolina MaciasIsmivk7531 [address] RoadDublin [place] [id number] Cholesterol in HDL [Mass/Vol] 39 mg/dL Abnormal [facility] Work Phone: Comment on above: PATIENT WAS FASTINGP ERFORMED BY: FERN LabCotrent Iriuwh24[address] RoadDublin [place] [id number] Cholesterol in LDL [Mass/Vol] 86 mg/dL Normal 0-99 [facility] Work Phone: Comment on above: PATIENT WAS FASTINGP ERFORMED BY: FERN LabCotrent Vmabfv5566 [address] RoadDublin [place] [id number] Cholesterol in LDL/Cholesterol in HDL [Mass ratio] 2.2 {ratio} Normal 0.0-3.6 [facility] Work Phone: Comment on above: LDL/HDL Ratio Men Wo men 1/2 Avg.Risk 1.0 1.5 Avg.Risk 3.6 3.2 2X Avg.Risk 6.2 5.0 3X Avg.Risk 8.0 6.1 PATIENT WAS FASTINGP ERFORMED BY: FERN [facility] Mvnpau1845 [address] RoadDublin [place] [id number] Cholesterol in VLDL [Mass/Vol] 24 mg/dL Normal 5-40 [facility] Work Phone: Comment on above: PATIENT WAS FASTINGP ERFORMED BY: CB [facility] Zkvjda0082 [address] RoadDublin [place] [id number] Triglyceride [Mass/Vol] 121 mg/dL Normal 0-149 [facility] Work Phone: Comment on above: PATIENT WAS FASTINGP ERFORMED BY: CB [facility] Hofris7756 [address] RoadDublin [place] [id number] METABOLIC PANEL, COMPREHENSI VE ([id number])Ordered By: Funeral Pre Arrangement Specialist on 11-26-2019 Albumin [Mass/Vol] 4.6 g/dL Normal 4.0-5.0 [facility] Internal [facility] Work Phone: Comment on above: PATIENT WAS FASTINGP ERFORMED BY: FERN [facility] Kjzezo2146 [address] RoadDublin [place] [id number] Albumin/Globulin [Mass ratio] 1.6 {ratio} Normal 1.2-2.2 [facility] Work Phone: Comment on above: PATIENT WAS FASTINGP ERFORMED BY: CB [facility] Zohhnw8667 [address] RoadDublin [place] [id number] ALP [Catalytic activity/Vol] 101 [iU]/L Normal 39-117 [facility] Work Phone: Comment on above: PATIENT WAS FASTINGP ERFORMED BY: CB [facility] Egcnbx7795 [address] RoadDublin [place] [id number] ALP [Catalytic activity/Vol] 101 U/L Normal 39-117 [facility]; [facility] Work Phone: Comment on above: PATIENT WAS FASTINGP ERFORMED BY: CB [facility] Amcdzu3205 [address] RoadDublin [place] [id number] ALT [Catalytic activity/Vol] 31 [iU]/L Normal 0-44 [facility] Work Phone: Comment on above: PATIENT WAS FASTINGP ERFORMED BY: CB [facility] Yhqgzs3201 [address] RoadDublin [place] [id number] ALT [Catalytic activity/Vol] 31 U/L Normal 0-44 [facility]; [facility] Work Phone: Comment on above: PATIENT WAS FASTINGP ERFORMED BY: FERN [facility] Jlxwxc6577 [address] RoadDublin [place] [id number] AST [Catalytic activity/Vol] 20 [iU]/L Normal 0-40 [facility] Work Phone: Comment on above: PATIENT WAS FASTINGP ERFORMED BY: FERN [facility] Zlazfa6386 [address] RoadDublin [place] [id number] AST [Catalytic activity/Vol] 20 U/L Normal 0-40 [facility]; [facility] Internal Medicine Work Phone: Comment on above: PATIENT WAS FASTINGP ERFORMED BY: FERN [facility] Wtgryg3048 [address] RoadDublin [place] [id number] Bilirubin [Mass/Vol] 0.4 mg/dL Normal 0.0-1.2 [facility] Work Phone: Comment on above: PATIENT WAS FASTINGP ERFORMED BY: FERN [facility] Zrtikc9036 [address] RoadDublin [place] [id number] Calcium [Mass/Vol] 9.5 mg/dL Normal 8.7-10.2 [facility] Internal [facility] Work Phone: Comment on above: PATIENT WAS FASTINGP ERFORMED BY: FERN [facility] Qkaeav0637 [address] RoadDublin [place] [id number] Chloride [Moles/Vol] 101 mmol/L Normal 96-106 [facility] Work Phone: Comment on above: PATIENT WAS FASTINGP ERFORMED BY: FERN [facility] Dynriv4377 [address] RoadDublin [place] [id number] CO2 [Moles/Vol] 22 mmol/L Normal 20-29 [facility] Internal Medicine Work Phone: Comment on above: PATIENT WAS FASTINGP ERFORMED BY: FERN [facility] Ptjuxf2236 [address] RoadDublin [place] [id number] Creatinine [Mass/Vol] 0.89 mg/dL Normal 0.76-1.27 [facility] Internal Medicine Work Phone: Comment on above: PATIENT WAS FASTINGP ERFORMED BY: [facility] Irnxpt1215 [address] Roadblin [place] [id number] GFR/1.73 sq M predicted among blacks CKD-EPI (S/P/Bld) [Vol rate/Area] 122 mL/min/1.73 Normal [facility] Work Phone: Comment on above: PATIENT WAS FASTINGP ERFORMED BY: [facility] Gkrtdb9220 [address] Roadblin [place] [id number] GFR/1.73 sq M predicted among non-blacks CKD-EPI (S/P/Bld) [Vol rate/Area] 105 mL/min/1.73 Normal [facility] Work Phone: Comment on above: PATIENT WAS FASTINGP ERFORMED BY: [facility] [facility]in [place] [id number] Globulin (S) [Mass/Vol] 2.9 g/dL Normal 1.5-4.5 [facility] Internal Medicine Work Phone: Comment on above: PATIENT WAS FASTINGP ERFORMED BY: [facility] [facility]in [place] [id number] Glucose [Mass/Vol] 125 mg/dL Abnormal 65-99 [facility] Work Phone: Comment on above: PATIENT WAS FASTINGP ERFORMED BY: [facility] [facility] [id number] Potassium [Moles/Vol] 4.3 mmol/L Normal 3.5-5.2 [facility] Work Phone: Comment on above: PATIENT WAS FASTINGP ERFORMED BY: [facility] Tuuynq[address] [facility]in [place] [id number] Protein [Mass/Vol] 7.5 g/dL Normal 6.0-8.5 [facility] Internal Medicine Work Phone: Comment on above: PATIENT WAS FASTINGP ERFORMED BY: [facility] Dqgwhm[address] [facility]in [place] [id number] Sodium [Moles/Vol] 140 mmol/L Normal 134-144 [facility] Internal [facility] Work Phone: Comment on above: PATIENT WAS FASTINGP ERFORMED BY: [facility] [facility]in [place] [id number] Urea nitrogen [Mass/Vol] 9 mg/dL Normal 6-24 [facility] Work Phone: Comment on above: PATIENT WAS FASTINGP ERFORMED BY: [facility] [facility] [id number] Urea nitrogen/Creatinine [Mass ratio] 10 mg/mg Normal 9-20 [facility] Work Phone: Comment on above: PATIENT WAS FASTINGP ERFORMED BY: [facility] [facility] [id number] CBC W/AUTO DIFF WBC ([id number])O rdered By: Funeral Pre Arrangement Specialist on 05-08-2019 Basophils (Bld) [#/Vol] 0.0 {x10E3/uL} Normal 0.0-0.2 [facility] Work Phone: Comment on above: PATIENT WAS FASTINGP ERFORMED BY: [facility] [facility] [id number] Basophils (Bld) [#/Vol] 0.0 10*3/uL Normal 0.0-0.2 [facility]; [facility] Work Phone: Comment on above: PATIENT WAS FASTINGP ERFORMED BY: [facility] [facility] [id number] Basophils/100 WBC (Bld) 0 % Normal [facility] Work Phone: Comment on above: PATIENT WAS FASTINGP ERFORMED BY: [facility] Gyglir[address] [facility] [id number] Eosinophils (Bld) [#/Vol] 0.3 {x10E3/uL} Normal 0.0-0.4 [facility] Work Phone: Comment on above: PATIENT WAS FASTINGP ERFORMED BY: [facility] Skvmym[address] [facility] [id number] Eosinophils (Bld) [#/Vol] 0.3 10*3/uL Normal 0.0-0.4 [facility]; [facility] Work Phone: Comment on above: PATIENT WAS FASTINGP ERFORMED BY: FERN Velasquez Oinsoc[address] [facility]in [place] [id number] Eosinophils/100 WBC (Bld) 4 % Normal [facility] Work Phone: Comment on above: PATIENT WAS FASTINGP ERFORMED BY: [facility] Voenin26[address] [facility] [id number] Erythrocyte distribution width (RBC) [Ratio] 13.5 % Normal 12.3-15.4 [facility] Work Phone: Comment on above: PATIENT WAS FASTINGP ERFORMED BY: [facility] Tesisg[address] [facility] [id number] Hematocrit (Bld) [Volume fraction] 43.8 % Normal 37.5-51.0 [facility] Work Phone: Comment on above: PATIENT WAS FASTINGP ERFORMED BY: [facility] Jantyv2258 [address] [facility] [id number] Hemoglobin (Bld) [Mass/Vol] 15.5 g/dL Normal 13.0-17.7 [facility] Work Phone: Comment on above: PATIENT WAS FASTINGP ERFORMED BY: [facility] Leoexw60[address] [facility] [id number] Immature granulocytes (Bld) [#/Vol] 0.0 {x10E3/uL} Normal 0.0-0.1 [facility] Work Phone: Comment on above: PATIENT WAS FASTINGP ERFORMED BY: [facility] Iwxfsu[address] [facility]in [place] [id number] Immature granulocytes (Bld) [#/Vol] 0.0 10*3/uL Normal 0.0-0.1 [facility]; [facility] Work Phone: Comment on above: PATIENT WAS FASTINGP ERFORMED BY: LabM[facility] Center[address] RoadAtrium Health Mercyin [place] [id number] Immature granulocytes/100 WBC (Bld) 0 % Normal [facility] Work Phone: Comment on above: PATIENT WAS FASTINGP ERFORMED BY: LabCoSt. Lawrence Rehabilitation CenterVcxskd3240 [address] RoadDublin [place] [id number] Lymphocytes (Bld) [#/Vol] 3.3 {x10E3/uL} Abnormal 0.7-3.1 [facility] Internal Medicine Work Phone: Comment on above: PATIENT WAS FASTINGP ERFORMED BY: LabGeneral [facility] Army Community HospitalDhoejh2319 [address] RoadDublin [place] [id number] Lymphocytes (Bld) [#/Vol] 3.3 10*3/uL Abnormal 0.7-3.1 [facility] Internal Medicine; [facility] Work Phone: Comment on above: PATIENT WAS FASTINGP ERFORMED BY: LabM[facility] Center6[address] RoadDublin [place] [id number] Lymphocytes/100 WBC (Bld) 38 % Normal [facility] Work Phone: Comment on above: PATIENT WAS FASTINGP ERFORMED BY: LabM[facility] Center6[address]bl[address] [place] [id number] MCH (RBC) [Entitic mass] 31.2 pg Normal 26.6-33.0 [facility] Internal Medicine Work Phone: Comment on above: PATIENT WAS FASTINGP ERFORMED BY: LabGeneral [facility] Community HospitalJkyowq7753 [address] RoadDublin [place] [id number] MCHC (RBC) [Mass/Vol] 35.4 g/dL Normal 31.5-35.7 [facility] Internal Medicine Work Phone: Comment on above: PATIENT WAS FASTINGP ERFORMED BY: [facility] Uqrcca[address] [facility] HospitalDublin [place] [id number] MCV (RBC) [Entitic vol] 88 fL Normal 79-97 [facility] Internal Medicine Work Phone: Comment on above: PATIENT WAS FASTINGP ERFORMED BY: LabCo Njidxp1994 [address] RoadDublin [place] [id number] Monocytes (Bld) [#/Vol] 0.6 {x10E3/uL} Normal 0.1-0.9 [facility] Work Phone: Comment on above: PATIENT WAS FASTINGP ERFORMED BY: FERN [facility] Dhilff9745 [address] RoadDublin [place] [id number] Monocytes (Bld) [#/Vol] 0.6 10*3/uL Normal 0.1-0.9 [facility]; [facility] Work Phone: Comment on above: PATIENT WAS FASTINGP ERFORMED BY: FERN [facility] Lfqsyw4391 [address] RoadDublin [place] [id number] Monocytes/100 WBC (Bld) 7 % Normal [facility] Work Phone: Comment on above: PATIENT WAS FASTINGP ERFORMED BY: FERN LabCotrent MaciasCtukdq9606 [address] RoadDublin [place] [id number] Neutrophils (Bld) [#/Vol] 4.6 {x10E3/uL} Normal 1.4-7.0 [facility] Work Phone: Comment on above: PATIENT WAS FASTINGP ERFORMED BY: FERN [facility] Qwwaff0030 [address]Dublin [place] [id number] Neutrophils (Bld) [#/Vol] 4.6 10*3/uL Normal 1.4-7.0 [facility]; [facility] Work Phone: Comment on above: PATIENT WAS FASTINGP ERFORMED BY: [facility] Auqizm7368 [address] RoadDublin [place] [id number] Neutrophils/100 WBC (Bld) 51 % Normal [facility] Work Phone: Comment on above: PATIENT WAS FASTINGP ERFORMED BY: CB [facility] Jwdeqs1059 [address] RoadDublin [place] [id number] Platelets (Bld) [#/Vol] 268 {x10E3/uL} Normal 150-450 [facility] Work Phone: Comment on above: PATIENT WAS FASTINGP ERFORMED BY: CB [facility] Ezpdnr1178 [address]Dublin [place] [id number] Platelets (Bld) [#/Vol] 268 10*3/uL Normal 150-450 [facility]; [facility] Work Phone: Comment on above: PATIENT WAS FASTINGP ERFORMED BY: FERN LabCotrent Rkhdwk9362 [address] Roadblin [place] [id number] RBC (Bld) [#/Vol] 4.97 {x10E6/uL} Normal 4.14-5.80 [facility] Work Phone: Comment on above: PATIENT WAS FASTINGP ERFORMED BY: FERN [facility] Nzsdcy1626 [address] Roadblin [place] [id number] RBC (Bld) [#/Vol] 4.97 10*6/uL Normal 4.14-5.80 [facility]; [facility] Work Phone: Comment on above: PATIENT WAS FASTINGP ERFORMED BY: FERN LabKarolina MaciasNkcsvl9916 [address] Roadblin [place] [id number] WBC (Bld) [#/Vol] 8.8 {x10E3/uL} Normal 3.4-10.8 [facility] Work Phone: Comment on above: PATIENT WAS FASTINGP ERFORMED BY: FERN [facility] Gkigrm0901 [address] Roadblin [place] [id number] WBC (Bld) [#/Vol] 8.8 10*3/uL Normal 3.4-10.8 [facility]; [facility] Work Phone: Comment on above: PATIENT WAS FASTINGP ERFORMED BY: FERN [facility] Kcnnsh[address] [facility]blin [place] [id number] LIPID PANEL ([id number])Ordered B y: Funeral Pre Arrangement Specialist on 05-08-2019 Cholesterol [Mass/Vol] 227 mg/dL Abnormal 100-199 [facility] Work Phone: Comment on above: PATIENT WAS FASTINGP ERFORMED BY: FERN [facility] Zuauoo[address] [facility] HospitalDublin [place] [id number] Cholesterol in HDL [Mass/Vol] 36 mg/dL Abnormal [facility] Work Phone: Comment on above: PATIENT WAS FASTINGP ERFORMED BY: FERN [facility] Wfsbao5139 [address] RoadDublin [place] [id number] Cholesterol in VLDL [Mass/Vol] VLDLCH Normal 5-40 [facility] Work Phone: Comment on above: The calculation for the VLDL cholesterol is not valid whentriglyceride level is >400 mg/dL.Triglyceride result indicated is too high for an accurate LDLcholesterol estimation. PATIENT WAS FASTINGP ERFORMED BY: CB [facility] Zrewpf5824 [address]Dublin [place] [id number] Triglyceride [Mass/Vol] 417 mg/dL Abnormal 0-149 [facility] Work Phone: Comment on above: PATIENT WAS FASTINGP ERFORMED BY: [facility] Mqkndx3455 [address]Dublin [place] [id number] METABOLIC PANEL, COMPREHENSI VE ([id number])Ordered By: Funeral Pre Arrangement Specialist on 05-08-2019 Albumin [Mass/Vol] 4.6 g/dL Normal 3.5-5.5 [facility] Work Phone: Comment on above: PATIENT WAS FASTINGP ERFORMED BY: [facility] Dzcdmo6020 [address] RoadDublin [place] [id number] Albumin/Globulin [Mass ratio] 1.7 {ratio} Normal 1.2-2.2 [facility] Work Phone: Comment on above: PATIENT WAS FASTINGP ERFORMED BY: [facility] Zjsjyh7425 [address] RoadDublin [place] [id number] ALP [Catalytic activity/Vol] 108 [iU]/L Normal 39-117 [facility] Work Phone: Comment on above: PATIENT WAS FASTINGP ERFORMED BY: [facility] Vkqlzm4652 [address]Dublin [place] [id number] ALP [Catalytic activity/Vol] 108 U/L Normal 39-117 [facility]; [facility] Work Phone: Comment on above: PATIENT WAS FASTINGP ERFORMED BY: [facility] Dvkuqb8083 [address] RoadDublin [place] [id number] ALT [Catalytic activity/Vol] 24 [iU]/L Normal 0-44 [facility] Work Phone: Comment on above: PATIENT WAS FASTINGP ERFORMED BY: [facility] Vgntdj3211 [address] RoadDublin [place] [id number] ALT [Catalytic activity/Vol] 24 U/L Normal 0-44 [facility]; [facility] Work Phone: Comment on above: PATIENT WAS FASTINGP ERFORMED BY: [facility] Ijplnl5038 [address] RoadDublin [place] [id number] AST [Catalytic activity/Vol] 20 [iU]/L Normal 0-40 [facility] Work Phone: Comment on above: PATIENT WAS FASTINGP ERFORMED BY: [facility] Xmcbln8285 [address] RoadDublin [place] [id number] AST [Catalytic activity/Vol] 20 U/L Normal 0-40 [facility]; [facility] Work Phone: Comment on above: PATIENT WAS FASTINGP ERFORMED BY: [facility] Qnvdon8066 [address] RoadDublin [place] [id number] Bilirubin [Mass/Vol] 0.3 mg/dL Normal 0.0-1.2 [facility] Work Phone: Comment on above: PATIENT WAS FASTINGP ERFORMED BY: [facility] Jircbh5431 [address] RoadDublin [place] [id number] Calcium [Mass/Vol] 10.0 mg/dL Normal 8.7-10.2 [facility] Work Phone: Comment on above: PATIENT WAS FASTINGP ERFORMED BY: [facility] Anupnn9684 [address] RoadDublin [place] [id number] Chloride [Moles/Vol] 101 mmol/L Normal 96-106 [facility] Work Phone: Comment on above: PATIENT WAS FASTINGP ERFORMED BY: [facility] Mnvgnx2579 [address] RoadDublin [place] [id number] CO2 [Moles/Vol] 22 mmol/L Normal 20-29 Com[facility] Internal Medicine Work Phone: Comment on above: PATIENT WAS FASTINGP ERFORMED BY: [facility] Jwfkem1480 [address] RoadDublin [place] [id number] Creatinine [Mass/Vol] 0.86 mg/dL Normal 0.76-1.27 [facility] Internal Medicine Work Phone: Comment on above: PATIENT WAS FASTINGP ERFORMED BY: CB [facility] Ahkrne8458 [address] RoadDublin [place] [id number] GFR/1.73 sq M predicted among blacks CKD-EPI (S/P/Bld) [Vol rate/Area] 125 mL/min/1.73 Normal [facility] Internal Medicine Work Phone: Comment on above: PATIENT WAS FASTINGP ERFORMED BY: [facility] Kwzmdh4190 [address] RoadDublin [place] [id number] GFR/1.73 sq M predicted among non-blacks CKD-EPI (S/P/Bld) [Vol rate/Area] 108 mL/min/1.73 Normal [facility] Internal Medicine Work Phone: Comment on above: PATIENT WAS FASTINGP ERFORMED BY: [facility] Eulcrz5687 [address] RoadDublin [place] [id number] Globulin (S) [Mass/Vol] 2.7 g/dL Normal 1.5-4.5 [facility] Internal Medicine Work Phone: Comment on above: PATIENT WAS FASTINGP ERFORMED BY: [facility] Svsvbj3024 [address] RoadDublin [place] [id number] Glucose [Mass/Vol] 103 mg/dL Abnormal 65-99 [facility] Work Phone: Comment on above: PATIENT WAS FASTINGP ERFORMED BY: [facility] Svctjm0373 [address] RoadDublin [place] [id number] Potassium [Moles/Vol] 4.5 mmol/L Normal 3.5-5.2 [facility] Internal Medicine Work Phone: Comment on above: PATIENT WAS FASTINGP ERFORMED BY: CB [facility] Emdhhh3490 [address]Dublin [place] [id number] Protein [Mass/Vol] 7.3 g/dL Normal 6.0-8.5 [facility] Work Phone: Comment on above: PATIENT WAS FASTINGP ERFORMED BY: FERN LabKarolina Rosario[address] [facility]blin [place] [id number] Sodium [Moles/Vol] 139 mmol/L Normal 134-144 [facility] Work Phone: Comment on above: PATIENT WAS FASTINGP ERFORMED BY: FERN LabLay Clrmgj[address] [facility]in [place] [id number] Urea nitrogen [Mass/Vol] 9 mg/dL Normal 6-24 [facility] Work Phone: Comment on above: PATIENT WAS FASTINGP ERFORMED BY: FERN Rontrent Jgdudy[address] [facility] [id number] Urea nitrogen/Creatinine [Mass ratio] 10 mg/mg Normal 9-20 [facility] Work Phone: Comment on above: PATIENT WAS FASTINGP ERFORMED BY: FERN [facility] Rflebd48[address] [facility] [id number] Alkaline Phosphatase ([id number]) Ordered By: Funeral Pre Arrangement Specialist on 08-27-2018 ALP [Catalytic activity/Vol] 133 [iU]/L Abnormal 39-117 [facility] Work Phone: Comment on above: PATIENT NOT FASTINGP ERFORMED BY: FERN Ron Hdzhei[address] [facility]in [place] [id number] ALP [Catalytic activity/Vol] 133 U/L Abnormal 39-117 [facility]; [facility] Work Phone: Comment on above: PATIENT NOT FASTINGP ERFORMED BY: FERN [facility] Kbfvez[address] [facility]blin [place] [id number] CBC W/AUTO DIFF WBC ([id number])O rdered By: Funeral Pre Arrangement Specialist on 08-27-2018 Basophils (Bld) [#/Vol] 0.0 {x10E3/uL} Normal 0.0-0.2 [facility] Work Phone: Comment on above: PATIENT NOT FASTINGP ERFORMED BY: FERN [facility] Sadclq[address] [facility]in [place] [id number] Basophils (Bld) [#/Vol] 0.0 10*3/uL Normal 0.0-0.2 [facility]; [facility] Work Phone: Comment on above: PATIENT NOT FASTINGP ERFORMED BY: CB [facility] Uyanmo6163 [address] RoadDublin [place] [id number] Basophils/100 WBC (Bld) 0 % Normal [facility] Work Phone: Comment on above: PATIENT NOT FASTINGP ERFORMED BY: CB [facility] Vpyaux8873 [address] RoadDublin [place] [id number] Eosinophils (Bld) [#/Vol] 0.2 {x10E3/uL} Normal 0.0-0.4 [facility] Work Phone: Comment on above: PATIENT NOT FASTINGP ERFORMED BY: CB [facility] Xlyxpu9726 [address] RoadDuin [place] [id number] Eosinophils (Bld) [#/Vol] 0.2 10*3/uL Normal 0.0-0.4 [facility]; [facility] Work Phone: Comment on above: PATIENT NOT FASTINGP ERFORMED BY: [facility] Qncpzf6324 [address]Dublin [place] [id number] Eosinophils/100 WBC (Bld) 2 % Normal [facility] Work Phone: Comment on above: PATIENT NOT FASTINGP ERFORMED BY: [facility] Nhyslu9269 [address] RoadDublin [place] [id number] Erythrocyte distribution width (RBC) [Ratio] 13.2 % Normal 12.3-15.4 [facility] Work Phone: Comment on above: PATIENT NOT FASTINGP ERFORMED BY: CB [facility] Ghyfdk9055 [address] RoadDublin [place] [id number] Hematocrit (Bld) [Volume fraction] 45.8 % Normal 37.5-51.0 [facility] Work Phone: Comment on above: PATIENT NOT FASTINGP ERFORMED BY: CB [facility] Rslqvz3883 [address] RoadDublin [place] [id number] Hemoglobin (Bld) [Mass/Vol] 16.0 g/dL Normal 13.0-17.7 [facility] Work Phone: Comment on above: PATIENT NOT FASTINGP ERFORMED BY: FERN LabKarolina Rosario6[address]Dublin [place] [id number] Immature granulocytes (Bld) [#/Vol] 0.0 {x10E3/uL} Normal 0.0-0.1 [facility] Work Phone: Comment on above: PATIENT NOT FASTINGP ERFORMED BY: CB [facility] Wezftc8449 [address] RoadDublin [place] [id number] Immature granulocytes (Bld) [#/Vol] 0.0 10*3/uL Normal 0.0-0.1 [facility]; [facility] Work Phone: Comment on above: PATIENT NOT FASTINGP ERFORMED BY: [facility] Zgondx6992 [address]Dublin [place] [id number] Immature granulocytes/100 WBC (Bld) 0 % Normal [facility] Work Phone: Comment on above: PATIENT NOT FASTINGP ERFORMED BY: [facility] Kptnbz4475 [address] RoadDublin [place] [id number] Lymphocytes (Bld) [#/Vol] 2.7 {x10E3/uL} Normal 0.7-3.1 [facility] Work Phone: Comment on above: PATIENT NOT FASTINGP ERFORMED BY: [facility] Yzonri1198 [address]Dublin [place] [id number] Lymphocytes (Bld) [#/Vol] 2.7 10*3/uL Normal 0.7-3.1 [facility]; [facility] Work Phone: Comment on above: PATIENT NOT FASTINGP ERFORMED BY: CB [facility] Tuvlgt4498 [address] RoadDublin [place] [id number] Lymphocytes/100 WBC (Bld) 24 % Normal [facility] Work Phone: Comment on above: PATIENT NOT FASTINGP ERFORMED BY: CB [facility] Rnrwaa2946 [address] RoadDublin [place] [id number] MCH (RBC) [Entitic mass] 31.8 pg Normal 26.6-33.0 [facility] Work Phone: Comment on above: PATIENT NOT FASTINGP ERFORMED BY: FERN [facility] Ifdrio1529 [address] RoadDublin [place] [id number] MCHC (RBC) [Mass/Vol] 34.9 g/dL Normal 31.5-35.7 [facility] Internal Medicine Work Phone: Comment on above: PATIENT NOT FASTINGP ERFORMED BY: CB [facility] Ryqvxn3023 [address] RoadDublin [place] [id number] MCV (RBC) [Entitic vol] 91 fL Normal 79-97 [facility] Work Phone: Comment on above: PATIENT NOT FASTINGP ERFORMED BY: FERN [facility] Yqlfmq4224 [address] RoadDublin [place] [id number] Monocytes (Bld) [#/Vol] 0.9 {x10E3/uL} Normal 0.1-0.9 [facility] Work Phone: Comment on above: PATIENT NOT FASTINGP ERFORMED BY: CB [facility] Wztylq8951 [address] RoadDublin [place] [id number] Monocytes (Bld) [#/Vol] 0.9 10*3/uL Normal 0.1-0.9 [facility]; [facility] Work Phone: Comment on above: PATIENT NOT FASTINGP ERFORMED BY: CB [facility] Ngoqkn1955 [address] RoadDublin [place] [id number] Monocytes/100 WBC (Bld) 8 % Normal [facility] Work Phone: Comment on above: PATIENT NOT FASTINGP ERFORMED BY: CB [facility] Qcviln7164 [address] RoadDublin [place] [id number] Neutrophils (Bld) [#/Vol] 7.1 {x10E3/uL} Abnormal 1.4-7.0 [facility] Work Phone: Comment on above: PATIENT NOT FASTINGP ERFORMED BY: CB [facility] Eoyvzs8404 [address] RoadDublin [place] [id number] Neutrophils (Bld) [#/Vol] 7.1 10*3/uL Abnormal 1.4-7.0 [facility]; [facility] Work Phone: Comment on above: PATIENT NOT FASTINGP ERFORMED BY: CB [facility] Uihade9521 [address] RoadDublin [place] [id number] Neutrophils/100 WBC (Bld) 66 % Normal [facility] Work Phone: Comment on above: PATIENT NOT FASTINGP ERFORMED BY: CB [facility] Pzuwcu6818 [address] RoadDublin [place] [id number] Platelets (Bld) [#/Vol] 286 {x10E3/uL} Normal 150-379 [facility] Work Phone: Comment on above: PATIENT NOT FASTINGP ERFORMED BY: CB [facility] Ttdlov0091 [address] RoadDublin [place] [id number] Platelets (Bld) [#/Vol] 286 10*3/uL Normal 150-379 [facility]; [facility] Work Phone: Comment on above: PATIENT NOT FASTINGP ERFORMED BY: CB [facility] Zqxtfo3070 [address] RoadDublin [place] [id number] RBC (Bld) [#/Vol] 5.03 {x10E6/uL} Normal 4.14-5.80 [facility] Work Phone: Comment on above: PATIENT NOT FASTINGP ERFORMED BY: CB [facility] Saeujn4441 [address] RoadDublin [place] [id number] RBC (Bld) [#/Vol] 5.03 10*6/uL Normal 4.14-5.80 [facility]; [facility] Work Phone: Comment on above: PATIENT NOT FASTINGP ERFORMED BY: CB [facility] Flclbl8065 [address] RoadDublin [place] [id number] WBC (Bld) [#/Vol] 10.9 {x10E3/uL} Abnormal 3.4-10.8 [facility] Work Phone: Comment on above: PATIENT NOT FASTINGP ERFORMED BY: FERN [facility] Dcwrof0121 [address] RoadDublin [place] [id number] WBC (Bld) [#/Vol] 10.9 10*3/uL Abnormal 3.4-10.8 [facility]; [facility] Work Phone: Comment on above: PATIENT NOT FASTINGP ERFORMED BY: CB [facility] Xwblqv9676 [address] Roadblin [place] [id number] GGT (Gamma Glutamyl Transfer ase) ([id number])Ordered By: Funeral Pre Arrangement Specialist on 08-27-2018 Gamma glutamyl transferase [Catalytic activity/Vol] 27 [iU]/L Normal 0-65 [facility] Work Phone: Comment on above: PATIENT NOT FASTINGP ERFORMED BY: FERN [facility] Elfimr5992 [address] RoadDublin [place] [id number] Gamma glutamyl transferase [Catalytic activity/Vol] 27 U/L Normal 0-65 [facility]; [facility] Work Phone: Comment on above: PATIENT NOT FASTINGP ERFORMED BY: FERN [facility] Syawwq0702 [address] RoadDublin [place] [id number] MICROALBUMINOrdered By: Syst em Archeology Faculty Member on 08-27-2018 Albumin DL <= 20 mg/L (U) [Mass/Vol] 7.9 ug/mL Normal [facility] Work Phone: Comment on above: PATIENT NOT FASTINGP ERFORMED BY: FERN [facility] Bmubaj[address] [facility]in [place] [id number] Albumin/Creatinine (U) [Mass ratio] 12.1 {mg/g_creat} Normal 0.0-30.0 [facility] Work Phone: Comment on above: Normal: 0.0 - 30.0 A lbuminuria: 31.0 - 300.0 Clinical albuminuria: >300.0 PATIENT NOT FASTINGP ERFORMED BY: FERN [facility] Yadbol9837 [address] RoadDublin [place] [id number] Creatinine (U) [Mass/Vol] 65.2 mg/dL Normal [facility] Work Phone: Comment on above: PATIENT NOT FASTINGP ERFORMED BY: FERN [facility] Bgyrsi5154 [address] RoadDublin [place] [id number] Microscopic ExaminationOrder ed By: Funeral Pre Arrangement Specialist on 08-27-2018 Bacteria LM.HPF (Urine sed) [#/Area] None seen Normal [facility] Work Phone: Comment on above: PATIENT NOT FASTINGP ERFORMED BY: FERN [facility] Cbxckz9838 [address] RoadDublin [place] [id number] Epithelial cells LM.HPF (Urine sed) [#/Area] None seen Normal 0 - 10 [facility] Work Phone: Comment on above: PATIENT NOT FASTINGP ERFORMED BY: FERN [facility] Ahjrhw7897 [address] RoadDublin [place] [id number] RBC LM.HPF (Urine sed) [#/Area] None seen Normal 0 - 2 [facility] Work Phone: Comment on above: PATIENT NOT FASTINGP ERFORMED BY: FERN [facility] Czriba2231 [address] RoadDublin [place] [id number] WBC LM.HPF (Urine sed) [#/Area] None seen Normal 0 - 5 [facility] Work Phone: Comment on above: PATIENT NOT FASTINGP ERFORMED BY: FERN LabCotrent MaciasJgthdm0464 [address] RoadDublin [place] [id number] URINALYSIS, W/ MICRO ([id number]) Ordered By: Funeral Pre Arrangement Specialist on 08-27-2018 Appearance (U) Clear Normal [facility] Work Phone: Comment on above: PATIENT NOT FASTINGP ERFORMED BY: FERN [facility] Cylcwl9157 [address] RoadDublin [place] [id number] Bilirubin Ql (U) Negative Normal Comprehe nsive Internal Medicine Work Phone: Comment on above: PATIENT NOT FASTINGP ERFORMED BY: FERN [facility] Miuwpb1874 [address] RoadDublin [place] [id number] Bilirubin Ql (U) Negative Normal Comprehe nsive Internal Medicine; [facility] Work Phone: Comment on above: PATIENT NOT FASTINGP ERFORMED BY: CB [facility] Vkpcxj6478 [address] RoadDublin [place] [id number] Color (U) Yellow Normal [facility] Work Phone: Comment on above: PATIENT NOT FASTINGP ERFORMED BY: FERN Rosario6370 [address] RoadDublin [place] [id number] Glucose Ql (U) Trace Abnormal [facility] Work Phone: Comment on above: PATIENT NOT FASTINGP ERFORMED BY: FERN Martin70 [address]Dublin [place] [id number] Hemoglobin Ql (U) Negative Normal Compreh ensive Internal Medicine Work Phone: Comment on above: PATIENT NOT FASTINGP ERFORMED BY: FERN Martin70 [address]Dublin [place] [id number] Hemoglobin Ql (U) Negative Normal Compreh ensive Internal Medicine; [facility] Work Phone: Comment on above: PATIENT NOT FASTINGP ERFORMED BY: FERN Martin70 [address]Duin [place] [id number] Ketones Ql (U) Negative Normal [facility] Work Phone: Comment on above: PATIENT NOT FASTINGP ERFORMED BY: FERN Martin70 [address]Duin [place] [id number] Ketones Ql (U) Negative Normal [facility]; [facility] Work Phone: Comment on above: PATIENT NOT FASTINGP ERFORMED BY: FERN Martin70 [address]Duin [place] [id number] Leukocyte esterase Test strip Ql (U) Negative Normal [facility] Work Phone: Comment on above: PATIENT NOT FASTINGP ERFORMED BY: FERN Rosario6370 [address]Dublin [place] [id number] Leukocyte esterase Test strip Ql (U) Negative Normal [facility]; [facility] Work Phone: Comment on above: PATIENT NOT FASTINGP ERFORMED BY: FERN Genet Ipskpl7035 [address] RoadDublin [place] [id number] Microscopic observation LM Nom (Urine sed) See below: Normal [facility] Work Phone: Comment on above: Microscopic was tj cated and was performed. PATIENT NOT FASTINGP ERFORMED BY: FERN Rosario[address] [facility] [id number] Microscopic observation LM Nom (Urine sed) MICRON Normal [facility] Work Phone: Comment on above: Microscopic follows if indicated. PATIENT NOT FASTINGP ERFORMED BY: FERN Rosario[address] [facility] [id number] Nitrite Ql (U) Negative Normal [facility] Work Phone: Comment on above: PATIENT NOT FASTINGP ERFORMED BY: FERN Rosario6370 [address] [facility] [id number] Nitrite Ql (U) Negative Normal [facility]; [facility] Work Phone: Comment on above: PATIENT NOT FASTINGP ERFORMED BY: FERN Rosario[address] [facility] [id number] pH (U) 6.0 [pH] Normal 5.0-7.5 [facility] Work Phone: Comment on above: PATIENT NOT FASTINGP ERFORMED BY: FERN Rosario[address] [facility] [id number] Protein Ql (U) Negative Normal [facility] Work Phone: Comment on above: PATIENT NOT FASTINGP ERFORMED BY: FERN Rosario[address] [facility] [id number] Protein Ql (U) Negative Normal [facility]; [facility] Work Phone: Comment on above: PATIENT NOT FASTINGP ERFORMED BY: FERN Rosario[address] [facility] [id number] Specific gravity (U) [Rel density] 1.011 1 Normal 1.005-1.030 [facility] Work Phone: Comment on above: PATIENT NOT FASTINGP ERFORMED BY: FERN Maciaslin6370 [facility] [place] [id number] Urobilinogen (U) [Mass/Vol] 0.2 mg/dL Normal 0.2-1.0 [facility]; [facility] Internal Medicine Work Phone: Comment on above: PATIENT NOT FASTINGP ERFORMED BY: [facility] Fvhpdo5983 [address]Dublin [place] [id number] Urobilinogen Test strip (U) [Mass/Vol] 0.2 mg/dL Normal 0.2-1.0 [facility] Work Phone: Comment on above: PATIENT NOT FASTINGP ERFORMED BY: [facility] Xkeupo[address] [facility]bl[facility] [place] [id number] CALCIFEDIOL ([id number])Ordered B y: Funeral Pre Arrangement Specialist on 08-13-2018 25-Hydroxyvitamin D2+25-Hydroxyvitamin D3 [Mass/Vol] 31.8 ng/mL Normal 30.0-100.0 [facility] Internal Medicine Work Phone: Comment on above: Vitamin D deficiency has been defined by the [place] of[place] and an Endocrine Society practice guideline as alevel of serum 25-OH vitamin D less than 20 ng/mL (1,2).The Endocrine Society went on to further define vitamin Dinsufficiency as a level between 21 and 29 ng/mL (2).1. IOM ([place] [employer]). 2010. Dietary reference intakes for calcium and D. [place]: The National Academies Press.2. Aurelia MF, Freddy NC, Emi AZAR, et al. Evaluation, treatment, and prevention of vitamin D deficiency: an Endocrine Society clinical practice guideline. JCEM. 2010; 96(7):1911-30. PATIENT WAS FASTINGP ERFORMED BY: [facility] Wmzztv8421 [address] [facility] HospitalDublin [place] [id number] HEPATIC FUNCTION PANEL ([id number])Ordered By: Funeral Pre Arrangement Specialist on 08-13-2018 Bilirubin.direct [Mass/Vol] 0.14 mg/dL Normal 0.00-0.40 [facility] Internal Medicine Work Phone: Comment on above: PATIENT WAS FASTINGP ERFORMED BY: [facility] Kkqanv2621 [address] [facility] [place] [id number] LIPID PANEL ([id number])Ordered B y: Funeral Pre Arrangement Specialist on 08-13-2018 Cholesterol [Mass/Vol] 178 mg/dL Normal 100-199 [facility] Internal Medicine Work Phone: Comment on above: PATIENT WAS FASTINGP ERFORMED BY: FERN LabKarolina Xlncnf9527 [address] RoadDublin [place] [id number] Cholesterol in HDL [Mass/Vol] 36 mg/dL Abnormal [facility] Work Phone: Comment on above: PATIENT WAS FASTINGP ERFORMED BY: FERN LabCotrent MaciasLoiakj4579 [address] [facility] [place] [id number] Cholesterol in LDL [Mass/Vol] 62 mg/dL Normal 0-99 [facility] Work Phone: Comment on above: PATIENT WAS FASTINGP ERFORMED BY: FERN LabKarolina MaciasZfkraz2109 [address] [facility] [place] [id number] Cholesterol in LDL/Cholesterol in HDL [Mass ratio] 1.7 {ratio} Normal 0.0-3.6 [facility] Work Phone: Comment on above: LDL/HDL Ratio Men Wo men 1/2 Avg.Risk 1.0 1.5 Avg.Risk 3.6 3.2 2X Avg.Risk 6.2 5.0 3X Avg.Risk 8.0 6.1 PATIENT WAS FASTINGP ERFORMED BY: FERN LabCotrent Riyfjt7843 [address] [facility] [place] [id number] Cholesterol in VLDL [Mass/Vol] 80 mg/dL Abnormal 5-40 [facility] Work Phone: Comment on above: PATIENT WAS FASTINGP ERFORMED BY: FERN [facility] Emawns5177 [address] [facility] HospitalDublin [place] [id number] Triglyceride [Mass/Vol] 400 mg/dL Abnormal 0-149 [facility] Work Phone: Comment on above: PATIENT WAS FASTINGP ERFORMED BY: FERN [facility] Yjlffy4291 [address] RoadDublin [place] [id number] METABOLIC PANEL, COMPREHENSI VE ([id number])Ordered By: Funeral Pre Arrangement Specialist on 08-13-2018 Albumin [Mass/Vol] 4.6 g/dL Normal 3.5-5.5 [facility] Internal Medicine Work Phone: Comment on above: PATIENT WAS FASTINGP ERFORMED BY: FERN LabCotrent MaciasDmmziy5439 [address]ner RoadAtrium Health Mercyin [place] [id number] Information: NURSE DRAW Albumin/Globulin [Mass ratio] 1.6 {ratio} Normal 1.2-2.2 [facility] Work Phone: Comment on above: PATIENT WAS FASTINGP ERFORMED BY: FERN [facility] Ntoyjf0461 [address] RoadAtrium Health Mercyin [place] [id number] Information: NURSE DRAW ALP [Catalytic activity/Vol] 128 [iU]/L Abnormal 39-117 [facility] Work Phone: Comment on above: PATIENT WAS FASTINGP ERFORMED BY: FERN LabCotrent MaciasAoidol7932 Joyner RoadFrye Regional Medical Center [id number] Information: NURSE DRAW ALP [Catalytic activity/Vol] 128 U/L Abnormal 39-117 [facility]; [facility] Work Phone: Comment on above: PATIENT WAS FASTINGP ERFORMED BY: FERN LabCotrent MaciasKnvchu5118 [address] [facility] [id number] Information: NURSE DRAW ALT [Catalytic activity/Vol] 34 [iU]/L Normal 0-44 [facility] Work Phone: Comment on above: PATIENT WAS FASTINGP ERFORMED BY: FERN [facility] Jrmwbf9498 [address] [facility] [id number] Information: NURSE DRAW ALT [Catalytic activity/Vol] 34 U/L Normal 0-44 [facility]; [facility] Work Phone: Comment on above: PATIENT WAS FASTINGP ERFORMED BY: FERN [facility] Ygwgqo5427 [address] [facility] [id number] Information: NURSE DRAW AST [Catalytic activity/Vol] 35 [iU]/L Normal 0-40 [facility] Work Phone: Comment on above: PATIENT WAS FASTINGP ERFORMED BY: FERN [facility] Oywngz9383 [address] [facility] [id number] Information: NURSE DRAW AST [Catalytic activity/Vol] 35 U/L Normal 0-40 [facility]; [facility] Work Phone: Comment on above: PATIENT WAS FASTINGP ERFORMED BY: FERN [facility] Hjkuiz[address] [facility] [id number] Information: NURSE DRAW Bilirubin [Mass/Vol] 0.4 mg/dL Normal 0.0-1.2 [facility] Work Phone: Comment on above: PATIENT WAS FASTINGP ERFORMED BY: [facility] [facility] [id number] Information: NURSE DRAW Calcium [Mass/Vol] 9.8 mg/dL Normal 8.7-10.2 [facility] Internal Medicine Work Phone: Comment on above: PATIENT WAS FASTINGP ERFORMED BY: FERN [place] [address] [facility] [id number] Information: NURSE DRAW Chloride [Moles/Vol] 102 mmol/L Normal 96-106 [facility] Work Phone: Comment on above: PATIENT WAS FASTINGP ERFORMED BY: FERN [facility] [facility] [id number] Information: NURSE DRAW CO2 [Moles/Vol] 20 mmol/L Normal 20-29 [facility] Internal Medicine Work Phone: Comment on above: PATIENT WAS FASTINGP ERFORMED BY: [place] [address] [facility] [id number] Information: NURSE DRAW Creatinine [Mass/Vol] 0.85 mg/dL Normal 0.76-1.27 [facility] Work Phone: Comment on above: PATIENT WAS FASTINGP ERFORMED BY: [place] [address] [facility] [id number] Information: NURSE DRAW GFR/1.73 sq M predicted among blacks CKD-EPI (S/P/Bld) [Vol rate/Area] 125 mL/min/1.73 Normal [facility] Internal Medicine Work Phone: Comment on above: PATIENT WAS FASTINGP ERFORMED BY: [place] [address] [facility] [id number] Information: NURSE DRAW GFR/1.73 sq M predicted among non-blacks CKD-EPI (S/P/Bld) [Vol rate/Area] 108 mL/min/1.73 Normal [facility] Internal Medicine Work Phone: Comment on above: PATIENT WAS FASTINGP ERFORMED BY: [address] [id number] Information: NURSE DRAW Globulin (S) [Mass/Vol] 2.9 g/dL Normal 1.5-4.5 [facility] Internal Medicine Work Phone: Comment on above: PATIENT WAS FASTINGP ERFORMED BY: [address] [id number] Information: NURSE DRAW Glucose [Mass/Vol] 125 mg/dL Abnormal 65-99 [facility] Internal Medicine Work Phone: Comment on above: Specimen received in contact with cells. No visible hemolysispresent. However GLUC may be decreased and K increased. Clinicalcorrelation indicated. PATIENT WAS FASTINGP ERFORMED BY: [place] [address] [facility] [id number] Information: NURSE DRAW Potassium [Moles/Vol] 4.8 mmol/L Normal 3.5-5.2 [facility] Internal Medicine Work Phone: Comment on above: Specimen received in contact with cells. No visible hemolysispresent. However GLUC may be decreased and K increased. Clinicalcorrelation indicated. PATIENT WAS FASTINGP ERFORMED BY: [place] [address] [facility] [id number] Information: NURSE DRAW Protein [Mass/Vol] 7.5 g/dL Normal 6.0-8.5 [facility] Internal Medicine Work Phone: Comment on above: PATIENT WAS FASTINGP ERFORMED BY: [place] [address] [facility] [id number] Information: NURSE DRAW Sodium [Moles/Vol] 142 mmol/L Normal 134-144 [facility] Internal Medicine Work Phone: Comment on above: PATIENT WAS FASTINGP ERFORMED BY: [facility] [facility] [id number] Information: NURSE DRAW Urea nitrogen [Mass/Vol] 10 mg/dL Normal 6-24 [facility] Work Phone: Comment on above: PATIENT WAS FASTINGP ERFORMED BY: LabCoSt. Lawrence Rehabilitation CenterXuvftd[address] [facility] [id number] Information: NURSE DRAW Urea nitrogen/Creatinine [Mass ratio] 12 mg/mg Normal 9-20 [facility] Work Phone: Comment on above: PATIENT WAS FASTINGP ERFORMED BY: [facility] [facility] [id number] Information: NURSE DRAW PPD (36876)Ordered By: Linda Dasilva on 09-12-2016 PPD (05789) Negative Normal [facility] Work Phone: Comment on above: .01 given on 09/09 given lt arm lot [id number] exp 10/24 PPD (39627) Negative Normal [facility]; [facility] Work Phone: Comment on above: .01 given on 09/09 given lt arm lot [id number] exp 10/24 CBC WITH MANUAL DIFF (32810) Ordered By: Funeral Pre Arrangement Specialist on 11-20-2012 Basophils (Bld) [#/Vol] 0.0 {x10E3/uL} Normal 0.0-0.2 [facility] Work Phone: Comment on above: PATIENT WAS FASTINGP ERFORMED BY: [facility] [facility] [id number] Information: [id number] Basophils (Bld) [#/Vol] 0.0 10*3/uL Normal 0.0-0.2 [facility]; [facility] Work Phone: Comment on above: PATIENT WAS FASTINGP ERFORMED BY: [facility] [facility] [id number] Information: [id number],[id number] Basophils/100 WBC (Bld) 0 % Normal 0-3 [facility] Work Phone: Comment on above: PATIENT WAS FASTINGP ERFORMED BY: [address] [id number] Information: 649255,[id number] Eosinophils (Bld) [#/Vol] 0.2 {x10E3/uL} Normal 0.0-0.4 [facility] Work Phone: Comment on above: PATIENT WAS FASTINGP ERFORMED BY: [address] [id number] Information: [id number],[id number] Eosinophils (Bld) [#/Vol] 0.2 10*3/uL Normal 0.0-0.4 [facility]; [facility] Work Phone: Comment on above: PATIENT WAS FASTINGP ERFORMED BY: [address] [id number] Information: [id number],[id number] Eosinophils/100 WBC (Bld) 2 % Normal 0-7 [facility] Work Phone: Comment on above: PATIENT WAS FASTINGP ERFORMED BY: [address] [id number] Information: 953456,T40063 Erythrocyte distribution width (RBC) [Ratio] 13.3 % Normal 12.3-15.4 [facility] Work Phone: Comment on above: PATIENT WAS FASTINGP ERFORMED BY: [address] [id number] Information: [id number],[id number] Hematocrit (Bld) [Volume fraction] 47.5 % Normal 37.5-51.0 [facility] Work Phone: Comment on above: PATIENT WAS FASTINGP ERFORMED BY: [place] [address] [facility] [id number] Information: 473773,J71113 Hemoglobin (Bld) [Mass/Vol] 16.3 g/dL Normal 12.6-17.7 [facility] Work Phone: Comment on above: PATIENT WAS FASTINGP ERFORMED BY: [address] [id number] Information: 678329,[id number] Immature granulocytes (Bld) [#/Vol] 0.0 {x10E3/uL} Normal 0.0-0.1 [facility] Work Phone: Comment on above: PATIENT WAS FASTINGP ERFORMED BY: [address] [id number] Information: 136822,G05081 Immature granulocytes (Bld) [#/Vol] 0.0 10*3/uL Normal 0.0-0.1 [facility]; [facility] Work Phone: Comment on above: PATIENT WAS FASTINGP ERFORMED BY: [address] [id number] Information: 500197,[id number] Immature granulocytes/100 WBC (Bld) 0 % Normal 0-2 [facility] Work Phone: Comment on above: PATIENT WAS FASTINGP ERFORMED BY: [address] [id number] Information: 336093,Q27222 Lymphocytes (Bld) [#/Vol] 3.0 {x10E3/uL} Normal 0.7-4.5 [facility] Work Phone: Comment on above: PATIENT WAS FASTINGP ERFORMED BY: [address] [id number] Information: 345485,G58769 Lymphocytes (Bld) [#/Vol] 3.0 10*3/uL Normal 0.7-4.5 [facility]; [facility] Work Phone: Comment on above: PATIENT WAS FASTINGP ERFORMED BY: FERN PerezW[place] 38749[address] [facility] [id number] Information: 585367,H12442 Lymphocytes/100 WBC (Bld) 32 % Normal 14-46 [facility] Work Phone: Comment on above: PATIENT WAS FASTINGP ERFORMED BY: [address] [id number] Information: 004490,T48053 MCH (RBC) [Entitic mass] 31.2 pg Normal 26.6-33.0 [facility] Internal Medicine Work Phone: Comment on above: PATIENT WAS FASTINGP ERFORMED BY: [address] [id number] Information: 450188,G17626 MCHC (RBC) [Mass/Vol] 34.3 g/dL Normal 31.5-35.7 [facility] Internal Medicine Work Phone: Comment on above: PATIENT WAS FASTINGP ERFORMED BY: [address] [id number] Information: 437298,[id number] MCV (RBC) [Entitic vol] 91 fL Normal 79-97 [facility] Internal Medicine Work Phone: Comment on above: PATIENT WAS FASTINGP ERFORMED BY: [address] [id number] Information: 891522,[id number] Monocytes (Bld) [#/Vol] 0.6 {x10E3/uL} Normal 0.1-1.0 [facility] Internal Medicine Work Phone: Comment on above: PATIENT WAS FASTINGP ERFORMED BY: [place] [address] [facility] [id number] Information: 882047,[id number] Monocytes (Bld) [#/Vol] 0.6 10*3/uL Normal 0.1-1.0 [facility]; [facility] Work Phone: Comment on above: PATIENT WAS FASTINGP ERFORMED BY: FERN FitzpatrickHCA Midwest Division [id number] Information: 136402,M04114 Monocytes/100 WBC (Bld) 7 % Normal 4-13 [facility] Work Phone: Comment on above: PATIENT WAS FASTINGP ERFORMED BY: FERN Ramirez [facility] [id number] Information: 868968,[id number] Neutrophils (Bld) [#/Vol] 5.6 {x10E3/uL} Normal 1.8-7.8 [facility] Work Phone: Comment on above: PATIENT WAS FASTINGP ERFORMED BY: FERN Rosario[address] [facility] [id number] Information: 944841,S50453 Neutrophils (Bld) [#/Vol] 5.6 10*3/uL Normal 1.8-7.8 [facility]; [facility] Work Phone: Comment on above: PATIENT WAS FASTINGP ERFORMED BY: FERN Ramirez [facility] [id number] Information: 815153,[id number] Neutrophils/100 WBC (Bld) 59 % Normal 40-74 [facility] Work Phone: Comment on above: PATIENT WAS FASTINGP ERFORMED BY: FERN Rosario[address] [facility] [id number] Information: 163244,[id number] Platelets (Bld) [#/Vol] 282 {x10E3/uL} Normal 140-415 [facility] Work Phone: Comment on above: PATIENT WAS FASTINGP ERFORMED BY: FERN Maciaslin[address] [facility] [id number] Information: 966217,[id number] Platelets (Bld) [#/Vol] 282 10*3/uL Normal 140-415 [facility]; [facility] Work Phone: Comment on above: PATIENT WAS FASTINGP ERFORMED BY: FERN LabCotrent RosarioBsbula[address] [facility] [id number] Information: 502114,[id number] RBC (Bld) [#/Vol] 5.22 {x10E6/uL} Normal 4.14-5.80 [facility] Work Phone: Comment on above: PATIENT WAS FASTINGP ERFORMED BY: FERN [facility] Lgvndf50[address] [facility] [id number] Information: 737778,[id number] RBC (Bld) [#/Vol] 5.22 10*6/uL Normal 4.14-5.80 [facility] Internal Medicine; [facility] Work Phone: Comment on above: PATIENT WAS FASTINGP ERFORMED BY: FERN [facility] Sdakbc80[address] [facility] [id number] Information: 398032,[id number] WBC (Bld) [#/Vol] 9.5 {x10E3/uL} Normal 4.0-10.5 [facility] Work Phone: Comment on above: PATIENT WAS FASTINGP ERFORMED BY: FERN Rontrent Jvoamg43[address] [facility] [id number] Information: 706872,[id number] WBC (Bld) [#/Vol] 9.5 10*3/uL Normal 4.0-10.5 [facility] Internal [facility]; [facility] Work Phone: Comment on above: PATIENT WAS FASTINGP ERFORMED BY: [facility] Mdoulx[address] [facility] [id number] Information: [id number],[id number] LIPID PANEL (76527)Ordered B y: Funeral Pre Arrangement Specialist on 11-20-2012 Cholesterol [Mass/Vol] 266 mg/dL Abnormal 100-199 [facility] Work Phone: Comment on above: PATIENT WAS FASTINGP ERFORMED BY: FERN [facility] Wcrlkj8533 [facility] [place] [id number] Cholesterol in HDL [Mass/Vol] 39 mg/dL Abnormal [facility] Work Phone: Comment on above: According to ATP-III Guidelines, HDL-C >59 mg/dL is considered anegative risk factor for CHD. PATIENT WAS FASTINGP ERFORMED BY: FERN [facility] Rglqxx2468 [address] [facility]in [place] [id number] Cholesterol in LDL [Mass/Vol] 152 mg/dL Abnormal 0-99 [facility] Work Phone: Comment on above: PATIENT WAS FASTINGP ERFORMED BY: CB [facility] Sjtrio6868 [address] [facility] [place] [id number] Cholesterol in LDL/Cholesterol in HDL [Mass ratio] 3.9 {ratio_units} Abnormal 0.0-3.6 [facility] Work Phone: Comment on above: PATIENT WAS FASTINGP ERFORMED BY: [facility] Efjylb0358 [address] [facility] [id number] Cholesterol in VLDL [Mass/Vol] 75 mg/dL Abnormal 5-40 [facility] Work Phone: Comment on above: PATIENT WAS FASTINGP ERFORMED BY: FERN [facility] Adchzg[address] [facility] [id number] Triglyceride [Mass/Vol] 373 mg/dL Abnormal 0-149 [facility] Work Phone: Comment on above: PATIENT WAS FASTINGP ERFORMED BY: [facility] Vzipzi[address] [facility] [id number] METABOLIC PANEL, COMPREHENSI VE (47128)Ordered By: Funeral Pre Arrangement Specialist on 11-20-2012 Albumin [Mass/Vol] 5.1 g/dL Normal 3.5-5.5 [facility] Internal Medicine Work Phone: Comment on above: PATIENT WAS FASTINGP ERFORMED BY: CB [facility] Wvamsm3746 [address] [facility] [id number] Albumin/Globulin [Mass ratio] 1.6 {ratio} Normal 1.1-2.5 [facility] Work Phone: Comment on above: PATIENT WAS FASTINGP ERFORMED BY: FERN LabCotrent Vkhdqr2045 [address] RoadDublin [place] [id number] ALP [Catalytic activity/Vol] 106 [iU]/L Normal 25-150 [facility] Work Phone: Comment on above: PATIENT WAS FASTINGP ERFORMED BY: FERN [facility] Fqdwmp8294 [address] RoadDublin [place] [id number] ALP [Catalytic activity/Vol] 106 U/L Normal 25-150 [facility]; [facility] Work Phone: Comment on above: PATIENT WAS FASTINGP ERFORMED BY: FERN [facility] Olkrku1507 [address] RoadDublin [place] [id number] ALT [Catalytic activity/Vol] 20 [iU]/L Normal 0-44 [facility] Work Phone: Comment on above: PATIENT WAS FASTINGP ERFORMED BY: FERN Maciaslin6370 [address] RoadDublin [place] [id number] ALT [Catalytic activity/Vol] 20 U/L Normal 0-44 [facility]; [facility] Work Phone: Comment on above: PATIENT WAS FASTINGP ERFORMED BY: FERN Maciaslin6370 [address] RoadDublin [place] [id number] AST [Catalytic activity/Vol] 17 [iU]/L Normal 0-40 [facility] Work Phone: Comment on above: PATIENT WAS FASTINGP ERFORMED BY: FERN [facility] Ogxzdc4647 [address] RoadDublin [place] [id number] AST [Catalytic activity/Vol] 17 U/L Normal 0-40 [facility]; [facility] Work Phone: Comment on above: PATIENT WAS FASTINGP ERFORMED BY: FERN [facility] Txzjrc7144 [address] RoadDublin [place] [id number] Bilirubin [Mass/Vol] 0.7 mg/dL Normal 0.0-1.2 Comp [facility] Internal Medicine Work Phone: Comment on above: PATIENT WAS FASTINGP ERFORMED BY: FERN [facility] Fcqhlt3124 [address] RoadDublin [place] [id number] Calcium [Mass/Vol] 10.1 mg/dL Normal 8.7-10.2 [facility] Work Phone: Comment on above: PATIENT WAS FASTINGP ERFORMED BY: FERN [facility] Akiidv8194 [address] RoadDublin [place] [id number] Chloride [Moles/Vol] 97 mmol/L Normal 97-108 [facility] Work Phone: Comment on above: PATIENT WAS FASTINGP ERFORMED BY: CB [facility] Zmjihl9284 [address] Roadblin [place] [id number] CO2 [Moles/Vol] 21 mmol/L Normal 20-32 [facility] Internal Medicine Work Phone: Comment on above: PATIENT WAS FASTINGP ERFORMED BY: [facility] Szemfx6920 [address] RoadFrye [facility] Center [id number] Creatinine [Mass/Vol] 0.81 mg/dL Normal 0.76-1.27 [facility] Internal Medicine Work Phone: Comment on above: PATIENT WAS FASTINGP ERFORMED BY: [facility] Fnuqdc3204 [address] RoadDuin [place] [id number] GFR/1.73 sq M predicted among blacks CKD-EPI (S/P/Bld) [Vol rate/Area] 133 mL/min/1.73 Normal [facility] Work Phone: Comment on above: PATIENT WAS FASTINGP ERFORMED BY: [facility] Ygtqhz5124 [address] RoadAtrium Health Mercyin [place] [id number] GFR/1.73 sq M predicted among non-blacks CKD-EPI (S/P/Bld) [Vol rate/Area] 115 mL/min/1.73 Normal [facility] Work Phone: Comment on above: PATIENT WAS FASTINGP ERFORMED BY: [facility] Isitnj6544 [address] Roadblin [place] [id number] Globulin (S) [Mass/Vol] 3.1 g/dL Normal 1.5-4.5 [facility] Work Phone: Comment on above: PATIENT WAS FASTINGP ERFORMED BY: FERN Rosario6370 [address] RoadDublin [place] [id number] Glucose [Mass/Vol] 252 mg/dL Abnormal 65-99 [facility] Work Phone: Comment on above: PATIENT WAS FASTINGP ERFORMED BY: FERN Rosario6370 [address] RoadDublin [place] [id number] Potassium [Moles/Vol] 4.2 mmol/L Normal 3.5-5.2 [facility] Internal Medicine Work Phone: Comment on above: PATIENT WAS FASTINGP ERFORMED BY: FERN Maciaslin6370 [address] RoadAtrium Health Mercyin [place] [id number] Protein [Mass/Vol] 8.2 g/dL Normal 6.0-8.5 [facility] Internal Medicine Work Phone: Comment on above: PATIENT WAS FASTINGP ERFORMED BY: FERN Rosario[address] [facility] [place] [id number] Sodium [Moles/Vol] 136 mmol/L Normal 134-144 [facility] Internal Medicine Work Phone: Comment on above: PATIENT WAS FASTINGP ERFORMED BY: FERN Maciaslin6370 [address] [facility]in [place] [id number] Urea nitrogen [Mass/Vol] 12 mg/dL Normal 6-20 [facility] Internal Medicine Work Phone: Comment on above: PATIENT WAS FASTINGP ERFORMED BY: FERN Maciaslin6370 [address] [facility] [id number] Urea nitrogen/Creatinine [Mass ratio] 15 mg/mg Normal 8-19 [facility] Internal Medicine Work Phone: Comment on above: PATIENT WAS FASTINGP ERFORMED BY: FERN Maciaslin6[address] [facility]in [place] [id number] MICROALBUMINOrdered By: Syst em Archeology Faculty Member on 11-20-2012 Albumin DL <= 20 mg/L (U) [Mass/Vol] 6.0 ug/mL Normal 0.0-17.0 [facility] Internal Medicine Work Phone: Comment on above: PATIENT WAS FASTINGP ERFORMED BY: [facility] Befgjj3215 [address] RoadDublin [place] [id number] Albumin/Creatinine (U) [Mass ratio] 6.6 {mg/g_creat} Normal 0.0-30.0 [facility] Internal Medicine Work Phone: Comment on above: PATIENT WAS FASTINGP ERFORMED BY: CB [facility] Vicdrc5651 [address] RoadDublin [place] [id number] Creatinine (U) [Mass/Vol] 90.6 mg/dL Normal 24.0-392.0 [facility] Work Phone: Comment on above: PATIENT WAS FASTINGP ERFORMED BY: CB [facility] Fhlabx8754 [address] RoadDublin [place] [id number] TSH ([id number])Ordered By: IguanaBee in [place] m Archeology Faculty Member on 11-20-2012 TSH Qn 1.460 {uIU/mL} Normal 0.450-4.500 Comprehen [facility] Internal Medicine Work Phone: Comment on above: PATIENT WAS FASTINGP ERFORMED BY: CB [facility] Uuvmfx59[address] RoadDublin [place] [id number] Vitamin D Hydroxy ([id number])Ord ered By: Funeral Pre Arrangement Specialist on 11-20-2012 25-Hydroxyvitamin D2+25-Hydroxyvitamin D3 [Mass/Vol] 19.6 ng/mL Abnormal 30.0-100.0 [facility] Work Phone: Comment on above: Vitamin D deficiency has been defined by the [place] [facility] and an Endocrine Society practice guideline as alevel of serum 25-OH vitamin D less than 20 ng/mL (1,2).The Endocrine Society went on to further define vitamin Dinsufficiency as a level between 21 and 29 ng/mL (2).1. IOM ([place] of Medicine). 2010. Dietary reference intakes for calcium and D. [place]: The National Academies Press.2. Aurelia MF, Freddy BENAVIDES, Emi AZAR, et al. Evaluation, treatment, and prevention of vitamin D deficiency: an Endocrine Society clinical practice guideline. JCEM. 2010; 96(7):1911-30. PATIENT WAS FASTINGP ERFORMED BY: CB [facility] Jpjbca7[address] RoadDublin [place] [id number] HgA1C , Office ([id number])Ordere d By: Aav Tubbs on 10-17-2012 HbA1c (Bld) [Mass fraction] 7.2 % Abnormal 4.6 - 7.1 [facility] Work Phone: Comment on above: 7.2 CMPOrdered By: System Manage r on 07-20-2012 Albumin [Mass/Vol] 4.6 g/dL Normal 3.4-5.0 [facility] Internal Medicine Work Phone: Albumin/Globulin [Mass ratio] 1.2 {RATIO} Normal 0.9-2.4 [facility] Work Phone: ALP [Catalytic activity/Vol] 90 U/L Normal 50-136 [facility] Work Phone: ALT [Catalytic activity/Vol] 44 U/L Normal 12-78 [facility] Work Phone: Anion gap [Moles/Vol] 8 mmol/L Normal 5-15 [facility] prehensive Internal Medicine Work Phone: AST [Catalytic activity/Vol] 30 U/L Normal 15-37 [facility] Internal Medicine Work Phone: Bilirubin [Mass/Vol] 0.50 mg/dL Normal 0.00-1.00 [facility] rehensive Internal Medicine Work Phone: Calcium [Mass/Vol] 9.7 mg/dL Normal 8.5-10.1 [facility] Internal Medicine Work Phone: Chloride [Moles/Vol] 100 mmol/L Normal 98-107 [facility] rehensive Internal Medicine Work Phone: CO2 [Moles/Vol] 26.0 mmol/L Normal 21.0-32.[address] [facility] Internal Medicine Work Phone: Creatinine [Mass/Vol] 0.9 mg/dL Normal 0.8-1.3 [facility] prehensive Internal Medicine Work Phone: GFR/1.73 sq M predicted among blacks MDRD (S/P/Bld) [Vol rate/Area] 124 mL/min/{1.73_m2} Normal Comprehensi ve Internal Medicine Work Phone: GFR/1.73 sq M.predicted MDRD (S/P/Bld) [Vol rate/Area] 102 mL/min/{1.73_m2} Normal Comprehensi ve Internal Medicine Work Phone: Globulin (S) [Mass/Vol] 3.7 g/dL Normal 2.7-4.2 [facility] Internal Medicine Work Phone: Glucose [Mass/Vol] 152 mg/dL Abnormal 70-110 [facility] Internal Medicine Work Phone: Comment on above: Fasting Glucose resu lt greater than or equal to 126 mg/dL suggests DIABETES MELLITUS per A.D.A. criteria. Potassium [Moles/Vol] 4.1 mmol/L Normal 3.5-5.1 Com prehensive Internal Medicine Work Phone: Protein [Mass/Vol] 8.3 g/dL Abnormal 6.4-8.2 [facility] Internal Medicine Work Phone: Sodium [Moles/Vol] 134 mmol/L Abnormal 136-145 [facility] Internal Medicine Work Phone: Urea nitrogen [Mass/Vol] 11 mg/dL Normal 7-18 [facility] Internal Medicine Work Phone: Urea nitrogen/Creatinine [Mass ratio] 12.2 {RATIO} Normal 10-20 [facility] Internal Medicine Work Phone: Blood Glucose , Office ([phone])Ordered By: Mayra Jorge on 07-18-2012 Glucose Glucometer (BldC) [Moles/Vol] HIgh Normal [facility] Internal Medicine Work Phone: Comment on above: Took 3 times, 2 diff erent glucometers, 531 at 2:[id number] at [id number] at 345pm attempted x 3 unable to [id number] at 2:30 pm415 at 310pm after 10units R insulin-this was checked with patient's own monitoragain checked at 415pm, after 2 bags NS and the xtra 5 u humalog - 329BS - still c/o blurred vision. CBCMDOrdered By: Dom epps on 07-18-2012 Erythrocyte distribution width (RBC) [Ratio] 12.3 % Normal 11.6-14.6 [facility] Internal Medicine Work Phone: Comment on above: DRAWN FROM IV Hematocrit (Bld) [Volume fraction] 44.0 % Normal 40-54 [facility] Work Phone: Comment on above: DRAWN FROM IV Hemoglobin (Bld) [Mass/Vol] 15.6 g/dL Normal 13.0-16.5 [facility] Internal Medicine Work Phone: Comment on above: DRAWN FROM IV MCH (RBC) [Entitic mass] 31.3 pg Normal 27.0-32.0 [facility] Internal Medicine Work Phone: Comment on above: DRAWN FROM IV MCHC (RBC) [Mass/Vol] 35.5 g/dL Normal 32-36 [facility] Internal Medicine Work Phone: Comment on above: DRAWN FROM IV MCV (RBC) [Entitic vol] 88.2 fL Normal 80-94 [facility] Internal Medicine Work Phone: Comment on above: DRAWN FROM IV Platelet mean volume (Bld) [Entitic vol] 11.4 fL Normal 6.2-12.0 [facility] Work Phone: Comment on above: DRAWN FROM IV Platelets (Bld) [#/Vol] 274 10*3/uL Normal 150-450 [facility] Internal Medicine Work Phone: Comment on above: DRAWN FROM IV RBC (Bld) [#/Vol] 4.99 {M/mm3} Normal 4.6-6.2 [facility] Internal Medicine Work Phone: Comment on above: DRAWN FROM IV WBC (Bld) [#/Vol] 10.6 {k/mm3} Normal 4.4-11.0 [facility] Internal Medicine Work Phone: Comment on above: DRAWN FROM IV CBCMD 7.4 3/uL Normal 2.0-7.7 [facility] Internal Medicine Work Phone: Comment on above: DRAWN FROM IV CBCMD 0.030 3/ul Abnormal 0.0-0.0 [facility] Internal Medicine Work Phone: Comment on [...] Albumin [Mass/Vol] 4.5 g/dL Normal 3.4-5.0 Compre [facility] Internal Medicine Work Phone: Comment on [...] Anion gap [Moles/Vol] 12 mmol/L Normal 5-15 [facility] prehensive Internal Medicine Work Phone: Comment on above: DRAWN FROM IVSPECIME N MODERATELY LIPEMIC AST [Catalytic activity/Vol] 21 U/L Normal 15-37 [facility] Work Phone: Comment on above: DRAWN FROM IVSPECIME N MODERATELY LIPEMIC Bilirubin [Mass/Vol] 0.40 mg/dL Normal 0.00-1.00 [facility] rehensive Internal Medicine Work Phone: Comment on above: DRAWN FROM IVSPECIME N MODERATELY LIPEMIC Calcium [Mass/Vol] 9.1 mg/dL Normal 8.5-10.1 [facility] Internal Medicine Work Phone: Comment on above: DRAWN FROM IVSPECIME N MODERATELY LIPEMIC Chloride [Moles/Vol] 92 mmol/L Abnormal 98-107 [facility] Work Phone: Comment on above: DRAWN FROM IVSPECIME N MODERATELY LIPEMIC CO2 [Moles/Vol] 27.0 mmol/L Normal 21.0-32.[address] [facility] Internal Medicine Work Phone: Comment on above: DRAWN FROM IVSPECIME N MODERATELY LIPEMIC Creatinine [Mass/Vol] 1.1 mg/dL Normal 0.8-1.3 [facility] Internal Medicine Work Phone: [...] Globulin (S) [Mass/Vol] 3.1 g/dL Normal 2.7-4.2 [facility] Internal Medicine Work Phone: Comment on above: DRAWN FROM IVSPECIME N MODERATELY LIPEMIC Glucose [Mass/Vol] 541 mg/dL Abnormal 70-110 [facility] Internal Medicine Work Phone: Comment on above: Glucose result great er than or equal to 200 mg/dLsuggests DIABETES MELLITUS per A.D.A. criteria. DRAWN FROM IVSPECIME N MODERATELY LIPEMIC Potassium [Moles/Vol] 5.2 mmol/L Abnormal 3.5-5.1 [facility] prehensive Internal Medicine Work Phone: Comment on above: DRAWN FROM IVSPECIME N MODERATELY LIPEMIC Protein [Mass/Vol] 7.6 g/dL Normal 6.4-8.2 [facility] Internal Medicine Work Phone: Comment on above: DRAWN FROM IVSPECIME N MODERATELY LIPEMIC Sodium [Moles/Vol] 131 mmol/L Abnormal 136-145 [facility] Internal Medicine Work Phone: Comment on above: DRAWN FROM IVSPECIME N MODERATELY LIPEMIC Urea nitrogen [Mass/Vol] 14 mg/dL Normal 7-18 [facility] Work Phone: Comment on above: DRAWN FROM IVSPECIME N MODERATELY LIPEMIC Urea nitrogen/Creatinine [Mass ratio] 12.7 {RATIO} Normal 10-20 [facility] Work Phone: Comment on above: DRAWN FROM IVSPECIME N MODERATELY LIPEMIC HgA1C , Office ([phone])Ordere d By: Mayra Jorge on 07-18-2012 HbA1c (Bld) [Mass fraction] 8.7 % Abnormal 4.6 - 7.1 [facility] Work Phone: OSOrdered By: Funeral Pre Arrangement Specialist on 07-18-2012 OS 309 {mOsm/KG} Abnormal 275-295 Comprehensi ve Internal Medicine Work Phone: Comment on above: DRAWN FROM IV Urinalysis, Office ([phone])Or dered By: Ava Tubbs on 07-18-2012 Bilirubin [...] [facility] Work Phone: LIPID PANEL ([id number])Ordered B y: Funeral Pre Arrangement Specialist on 06-15-2012 Cholesterol [Mass/Vol] 188 mg/dL Normal 100-199 Co mprehensive Internal Medicine Work Phone: Comment on above: PATIENT WAS FASTINGP ERFORMED BY: Total [employer] [facility] [id number] Information: [id number] Cholesterol in HDL [Mass/Vol] 36 mg/dL Abnormal [facility] Work Phone: Comment on above: According to ATP-III Guidelines, HDL-C >59 mg/dL is considered anegative risk factor for CHD. PATIENT WAS FASTINGP ERFORMED BY: Total [employer]70 [facility] [id number] Information: [id number] Cholesterol in VLDL [Mass/Vol] VLDLCH Normal 5-40 [facility] Work Phone: Comment on above: The calculation for the VLDL cholesterol is not valid whentriglyceride level is >400 mg/dL.Triglyceride result indicated is too high for an accurate LDLcholesterol estimation. PATIENT WAS FASTINGP ERFORMED BY: Total Bo[employer]70 [facility] [id number] Information: [id number] Triglyceride [Mass/Vol] 452 mg/dL Abnormal 0-149 [facility] Work Phone: Comment on above: PATIENT WAS FASTINGP ERFORMED BY: Total [employer]70 [address] [facility] [id number] Information: [id number] Hep A Ab, TotalOrdered By: S ystem Archeology Faculty Member on 05-16-2012 HAV Ab IA Ql (S) Negative Normal Comprehe nsive Internal Medicine Work Phone: Comment on above: PERFORMED BY: [employer]370 [facility] [id number] Hep B Surface AbOrdered By: Funeral Pre Arrangement Specialist on 05-16-2012 HBV surface Ab PINEDA Qn [...] total amount of antibody present. PERFORMED BY: [employer] [address] [facility] [id number] Measles/Mumps/Rubella Immuni tyOrdered By: Funeral Pre Arrangement Specialist on 05-16-2012 Measles/Mumps/Rubella Immunity 10 {IU/mL} Normal [facility] Work Phone: Comment on above: Non-immune <5 Equivo hilda 5 - 9 Immune >9 PERFORMED BY: [facility]6370 [facility] [id number] Measles/Mumps/Rubella Immunity 1.52 {index} Abnormal 0.00-0.90 [facility] Work Phone: Comment on above: Negative <0.91 Equiv ocal 0.91 - 1.09 Positive >1.09 . Presence of antibodies to Rubeola is presumptive evidence of immunity except when active infection is suspected. PERFORMED BY: [employer] [id number] Measles/Mumps/Rubella Immunity 1.92 {index} Abnormal 0.00-0.90 [facility] Work Phone: Comment on above: Negative <0.91 Equiv ocal 0.91 - 1.09 Positive >1.09 Presence of antibodies to Mumps is presumptive evidence of immunity except when active infection is suspected. PERFORMED BY: [employer]70 [facility] [id number] Varicella-Zoster V Ab, IgGOr dered By: Funeral Pre Arrangement Specialist on 05-16-2012 Varicella-Zoster V Ab, IgG 1.86 {index} Normal [facility] Work Phone: Comment on above: Nonimmune <0.91 Equi vocal 0.91 - 1.09 Immune >1.09 PERFORMED BY: [facility] [facility] [id number] HgA1C , Office ([id number])Ordere d By: Ava Tubbs on 09-13-2011 HbA1c (Bld) [Mass fraction] 5.8 % Normal 4.6 - 7.1 [facility] Work Phone: PSA (PROSTATE SPECIFIC ANTIG EN) ([id number])Ordered By: Funeral Pre Arrangement Specialist on 09-13-2011 Prostate specific Ag [Mass/Vol] 1.1 ng/mL Normal 0.0-4.0 [facility] Work Phone: Comment on above: Elliot ECLIA methodol ogy. .According to the [place] [employer], Serum PSA shoulddecrease and remain [...] disease. PATIENT NOT FASTINGP ERFORMED BY: [facility] Tdentj5354 [address] RoadDublin [place] [id number] Information: [id number] Comp. Metabolic Panel (14)Or dered By: Funeral Pre Arrangement Specialist on 09-02-2011 Albumin [Mass/Vol] 4.8 g/dL Normal 3.5-5.5 [facility] Internal Medicine Work Phone: Comment on above: PATIENT WAS FASTINGP ERFORMED BY: [facility] Fwvwut9021 [address] RoadDublin [place] [id number] Albumin/Globulin [Mass ratio] 1.5 {ratio} Normal 1.1-2.5 [facility] Work Phone: Comment on above: PATIENT WAS FASTINGP ERFORMED BY: [facility] Qdhutx1185 [address] RoadDublin [place] [id number] ALP [Catalytic activity/Vol] 64 [iU]/L Normal 25-150 [facility] Work Phone: Comment on above: PATIENT WAS FASTINGP ERFORMED BY: [facility] Ikucqd3333 [address] RoadDublin [place] [id number] ALT [Catalytic activity/Vol] 44 [iU]/L Normal 0-55 [facility] Work Phone: Comment on above: PATIENT WAS FASTINGP ERFORMED BY: [facility] Bqovrj9526 [address] RoadDublin [place] [id number] AST [Catalytic activity/Vol] 34 [iU]/L Normal 0-40 [facility] Work Phone: Comment on above: PATIENT WAS FASTINGP ERFORMED BY: [facility] Gxlqnx6400 [address] RoadDublin [place] [id number] Bilirubin [Mass/Vol] 0.5 mg/dL Normal 0.0-1.2 [facility] Work Phone: Comment on above: PATIENT WAS FASTINGP ERFORMED BY: CB [facility] Kjptgs6623 [address] RoadDublin [place] [id number] Calcium [Mass/Vol] 9.7 mg/dL Normal 8.7-10.2 [facility] Internal Medicine Work Phone: Comment on above: PATIENT WAS FASTINGP ERFORMED BY: CB [facility] Gjdqbx7834 [address] RoadDublin [place] [id number] Chloride [Moles/Vol] 101 mmol/L Normal 97-108 [facility] Work Phone: Comment on above: PATIENT WAS FASTINGP ERFORMED BY: CB [facility] Ytotdr1083 [address] RoadDublin [place] [id number] CO2 [Moles/Vol] 24 mmol/L Normal 20-32 Comprehen [facility] Internal Medicine Work Phone: Comment on above: PATIENT WAS FASTINGP ERFORMED BY: CB [facility] Vpkymb2395 [address] RoadDublin [place] [id number] Creatinine [Mass/Vol] 0.99 mg/dL Normal 0.76-1.27 [facility] Internal Medicine Work Phone: Comment on above: PATIENT WAS FASTINGP ERFORMED BY: CB [facility] Udddui8748 [address] RoadDuin [place] [id number] GFR/1.73 sq M predicted among blacks MDRD (S/P/Bld) [Vol rate/Area] 114 mL/min/{1.73_m2} Normal [facility] Internal [facility] Work Phone: Comment on above: Note: A persistent e GFR <60 mL/min/1.73 m2 (3 months or more) mayindicate chronic kidney disease. An eGFR >59 mL/min/1.73 m2 with anelevated urine protein also may indicate chronic kidney disease.Calculated using CKD-EPI formula. PATIENT WAS FASTINGP ERFORMED BY: CB [facility] Idmktf3398 [address] RoadDublin [place] [id number] GFR/1.73 sq M predicted among non-blacks CKD-EPI (S/P/Bld) [Vol rate/Area] 99 mL/min/1.73 Normal [facility] Internal Medicine Work Phone: Comment on above: PATIENT WAS FASTINGP ERFORMED BY: FERN [facility] Kalwwd5354 [address] RoadDublin [place] [id number] Globulin (S) [Mass/Vol] 3.1 g/dL Normal 1.5-4.5 [facility] Internal Medicine Work Phone: Comment on above: PATIENT WAS FASTINGP ERFORMED BY: CB [facility] Xonqjb6799 [address] Roadblin [place] [id number] Glucose [Mass/Vol] 74 mg/dL Normal 65-99 [facility] Internal Medicine Work Phone: Comment on above: PATIENT WAS FASTINGP ERFORMED BY: FERN [facility] Cxuizd3432 [address] RoadDuin [place] [id number] Potassium [Moles/Vol] 4.4 mmol/L Normal 3.5-5.2 [facility] Internal Medicine Work Phone: Comment on above: PATIENT WAS FASTINGP ERFORMED BY: FERN [facility] Zbzgmt0988 [address]ner RoadAtrium Health Mercyin [place] [id number] Protein [Mass/Vol] 7.9 g/dL Normal 6.0-8.5 [facility] Internal Medicine Work Phone: Comment on above: PATIENT WAS FASTINGP ERFORMED BY: [facility] Tfbezn2035 [address] RoadDublin [place] [id number] Sodium [Moles/Vol] 139 mmol/L Normal 134-144 [facility] Internal Medicine Work Phone: Comment on above: PATIENT WAS FASTINGP ERFORMED BY: [facility] Gaxtse1345 [address] RoadDublin [place] [id number] Urea nitrogen [Mass/Vol] 10 mg/dL Normal 6-20 [facility] Internal Medicine Work Phone: Comment on above: PATIENT WAS FASTINGP ERFORMED BY: FERN [facility] Itljqn4412 [address] RoadDublin [place] [id number] Urea nitrogen/Creatinine [Mass ratio] 10 mg/mg Normal 8-19 [facility] Internal Medicine Work Phone: Comment on above: PATIENT WAS FASTINGP ERFORMED BY: CB [facility] Zazuxs8527 [address] RoadDublin [place] [id number] Lipid Panel With LDL/HDL Rat ioOrdered By: Funeral Pre Arrangement Specialist on 09-02-2011 Cholesterol [Mass/Vol] 251 mg/dL Abnormal 100-199 [facility] Internal Medicine Work Phone: Comment on above: PATIENT WAS FASTINGP ERFORMED BY: CB [facility] Tkuizh5241 [address] RoadDublin [place] [id number] Cholesterol in HDL [Mass/Vol] 40 mg/dL Normal [facility] Work Phone: Comment on above: According to ATP-III Guidelines, HDL-C >59 mg/dL is considered anegative risk factor for CHD. PATIENT WAS FASTINGP ERFORMED BY: FERN [facility] Dllbdo3209 [address] RoadDublin [place] [id number] Cholesterol in LDL [Mass/Vol] 166 mg/dL Abnormal 0-99 [facility] Work Phone: Comment on above: PATIENT WAS FASTINGP ERFORMED BY: CB [facility] Rnhnds2588 [address] RoadDublin [place] [id number] Cholesterol in LDL/Cholesterol in HDL [Mass ratio] 4.2 {ratio_units} Abnormal 0.0-3.6 [facility] Work Phone: Comment on above: PATIENT WAS FASTINGP ERFORMED BY: CB [facility] Ksqicq5985 [address] RoadDublin [place] [id number] Cholesterol in VLDL [Mass/Vol] 45 mg/dL Abnormal 5-40 [facility] Work Phone: Comment on above: PATIENT WAS FASTINGP ERFORMED BY: CB [facility] Vdtdep0556 [address] RoadDublin [place] [id number] Triglyceride [Mass/Vol] 225 mg/dL Abnormal 0-149 [facility] Work Phone: Comment on above: PATIENT WAS FASTINGP ERFORMED BY: CB [facility] Dzebis7925 [address] RoadDublin [place] [id number] Vitamin D, 25-HydroxyOrdered By: Funeral Pre Arrangement Specialist on 09-02-2011 25-Hydroxyvitamin D2+25-Hydroxyvitamin D3 [Mass/Vol] 11.6 ng/mL Abnormal 30.0-100.0 [facility] Work Phone: Comment on above: Vitamin D deficiency has been defined by the [place] of[place] and an Endocrine Society practice guideline as alevel of serum 25-OH vitamin D less than 20 ng/mL (1,2).The Endocrine Society went on to further define vitamin Dinsufficiency as a level between 21 and 29 ng/mL (2).1. IOM ([place] [employer]). 2010. Dietary reference intakes for calcium and D. [place]: The National Academies Press.2. Aurelia MF, Freddy BENAVIDES, Emi AZAR, et al. Evaluation, treatment, and prevention of vitamin D deficiency: an Endocrine Society clinical practice guideline. JCEM. 2010; 96(7):1911-30. PATIENT WAS FASTINGP ERFORMED BY: [employer] Xghxlk3034 [address]in [place] [id number] LIPID PANEL ([id number])Ordered B y: Funeral Pre Arrangement Specialist on 02-01-2011 Cholesterol [Mass/Vol] 238 mg/dL Abnormal 100-199 [facility] Internal Medicine Work Phone: Comment on above: PATIENT WAS FASTINGP ERFORMED BY: Qitio [facility] Rsqctl[address] Perio Sciencesblin [place] [id number] Cholesterol in HDL [Mass/Vol] 43 mg/dL Normal [facility] Work Phone: Comment on above: According to ATP-III Guidelines, HDL-C >59 mg/dL is considered anegative risk factor for CHD. PATIENT WAS FASTINGP ERFORMED BY: CB [facility] Vkabhq[address] Perio Sciencesblin [place] [id number] Cholesterol in LDL [Mass/Vol] 158 mg/dL Abnormal 0-99 [facility] Work Phone: Comment on above: PATIENT WAS FASTINGP ERFORMED BY: [employer] Xvjtxe[address] LeadjiniDuin [place] [id number] Cholesterol in LDL/Cholesterol in HDL [Mass ratio] 3.7 {ratio_units} Abnormal 0.0-3.6 [facility] Work Phone: Comment on above: PATIENT WAS FASTINGP ERFORMED BY: FERN [facility] Glqyyv6733 [address] RoadDublin [place] [id number] Cholesterol in VLDL [Mass/Vol] 37 mg/dL Normal 5-40 [facility] Work Phone: Comment on above: PATIENT WAS FASTINGP ERFORMED BY: FERN [facility] Fovqxw2284 [address] RoadDublin [place] [id number] Triglyceride [Mass/Vol] 185 mg/dL Abnormal 0-149 [facility] Work Phone: Comment on above: PATIENT WAS FASTINGP ERFORMED BY: FERN [facility] Kydxpp6431 [address] RoadDublin [place] [id number] METABOLIC PANEL, COMPREHENSI VE ([id number])Ordered By: Funeral Pre Arrangement Specialist on 02-01-2011 Albumin [Mass/Vol] 4.7 g/dL Normal 3.5-5.5 [facility] Work Phone: Comment on above: PATIENT WAS FASTINGP ERFORMED BY: FERN [facility] Xalpoi5099 [address] RoadDublin [place] [id number] Information: [id number], NURSE DRAW Albumin/Globulin [Mass ratio] 1.5 {ratio} Normal 1.1-2.5 [facility] Work Phone: Comment on above: PATIENT WAS FASTINGP ERFORMED BY: FERN [facility] Rqmcuo9036 [address] RoadDublin [place] [id number] Information: [id number], NURSE DRAW ALP [Catalytic activity/Vol] 69 [iU]/L Normal 25-150 [facility] Work Phone: Comment on above: PATIENT WAS FASTINGP ERFORMED BY: CB [facility] Mzuszg0680 [address]Dublin [place] [id number] Information: [id number], NURSE DRAW ALP [Catalytic activity/Vol] 69 U/L Normal 25-150 [facility]; [facility] Work Phone: Comment on above: PATIENT WAS FASTINGP ERFORMED BY: CB [facility] Cfinej8294 [address] RoadDublin [place] [id number] Information: [id number], NURSE DRAW ALT [Catalytic activity/Vol] 32 [iU]/L Normal 0-55 [facility] Work Phone: Comment on above: PATIENT WAS FASTINGP ERFORMED BY: [place] [id number] [facility] [id number] Information: [id number], NURSE DRAW ALT [Catalytic activity/Vol] 32 U/L Normal 0-55 Comprehensive Internal Medicine; [facility] Work Phone: Comment on above: PATIENT WAS FASTINGP ERFORMED BY: [address] [id number] Information: [id number], NURSE DRAW AST [Catalytic activity/Vol] 30 [iU]/L Normal 0-40 [facility] Work Phone: Comment on above: PATIENT WAS FASTINGP ERFORMED BY: [address] [id number] Information: [id number], NURSE DRAW AST [Catalytic activity/Vol] 30 U/L Normal 0-40 [facility]; [facility] Work Phone: Comment on above: PATIENT WAS FASTINGP ERFORMED BY: [place] [id number] [facility] [id number] Information: [id number], NURSE DRAW Bilirubin [Mass/Vol] 0.5 mg/dL Normal 0.0-1.2 Comp [facility] Internal Medicine Work Phone: Comment on above: PATIENT WAS FASTINGP ERFORMED BY: [address] [id number] Information: [id number], NURSE DRAW Calcium [Mass/Vol] 10.0 mg/dL Normal 8.7-10.2 [facility] Internal Medicine Work Phone: Comment on above: PATIENT WAS FASTINGP ERFORMED BY: [place] [id number] [facility] [id number] Information: [id number], NURSE DRAW Chloride [Moles/Vol] 102 mmol/L Normal 97-108 [facility] rehensive Internal Medicine Work Phone: Comment on above: PATIENT WAS FASTINGP ERFORMED BY: LabCoSt. [facility] CenterUkibaf8874 [facility] [id number] Information: [id number], NURSE DRAW CO2 [Moles/Vol] 23 mmol/L Normal 20-32 Comprehen sive Internal Medicine Work Phone: Comment on above: PATIENT WAS FASTINGP ERFORMED BY: [facility] [facility] [id number] Information: [id number], NURSE DRAW Creatinine [Mass/Vol] 1.15 mg/dL Normal 0.76-1.27 [facility] Internal Medicine Work Phone: Comment on above: PATIENT WAS FASTINGP ERFORMED BY: [address] [id number] Information: [id number], NURSE DRAW GFR/1.73 sq M predicted among blacks MDRD (S/P/Bld) [Vol rate/Area] 96 mL/min/{1.73_m2} Normal Comprehensiv e Internal Medicine Work Phone: Comment on above: Note: A persistent e GFR <60 mL/min/1.73 m2 (3 months or more) mayindicate chronic kidney disease. An eGFR >59 mL/min/1.73 m2 with anelevated urine protein also may indicate chronic kidney disease.Calculated using CKD-EPI formula. PATIENT WAS FASTINGP ERFORMED BY: [facility] [facility] [id number] Information: [id number], NURSE DRAW GFR/1.73 sq M predicted among non-blacks CKD-EPI (S/P/Bld) [Vol rate/Area] 83 mL/min/1.73 Normal [facility] Medicine Work Phone: Comment on above: PATIENT WAS FASTINGP ERFORMED BY: LabCoSt. Lawrence Rehabilitation CenterHhplnl57[address] [facility] [id number] Information: [id number], NURSE DRAW Globulin (S) [Mass/Vol] 3.1 g/dL Normal 1.5-4.5 [facility] Internal Medicine Work Phone: Comment on above: PATIENT WAS FASTINGP ERFORMED BY: FERN Ron Ztxkga4[address] [facility] [id number] Information: [id number], NURSE DRAW Glucose [Mass/Vol] 95 mg/dL Normal 65-99 [facility] Internal Medicine Work Phone: Comment on above: PATIENT WAS FASTINGP ERFORMED BY: Chris[address] [id number] Information: [id number], NURSE DRAW Potassium [Moles/Vol] 4.5 mmol/L Normal 3.5-5.2 [facility] Internal Medicine Work Phone: Comment on above: PATIENT WAS FASTINGP ERFORMED BY: [address] [id number] Information: [id number], NURSE DRAW Protein [Mass/Vol] 7.8 g/dL Normal 6.0-8.5 [facility] Internal Medicine Work Phone: Comment on above: PATIENT WAS FASTINGP ERFORMED BY: FERN [address] [id number] Information: [id number], NURSE DRAW Sodium [Moles/Vol] 139 mmol/L Normal 135-145 [facility] Internal Medicine Work Phone: Comment on above: PATIENT WAS FASTINGP ERFORMED BY: [place] [id number] [facility] [id number] Information: [id number], NURSE DRAW Urea nitrogen [Mass/Vol] 13 mg/dL Normal 6-20 [facility] Internal Medicine Work Phone: Comment on above: PATIENT WAS FASTINGP ERFORMED BY: Chris[address] [id number] Information: [id number], NURSE DRAW Urea nitrogen/Creatinine [Mass ratio] 11 mg/mg Normal 8-19 [facility] Internal Medicine Work Phone: Comment on above: PATIENT WAS FASTINGP ERFORMED BY: [facility] [facility] [id number] Information: [id number], NURSE DRAW Vital Signs Date Time Vital Sign Value Performing Clinician Facility 02-28-2025 07:59-0400 Body height 162.[address] Tawanna Pickard DO Work Phone: [facility] 02-28-2025 07:59-0400 Body mass index (BMI) [Ratio] 34.8 kg/m2 Dr. Tawanna Pickard DO Work Phone: [facility] 02-28-2025 07:59-0400 Body weight 92.[address] Tawanna Pickard DO Work Phone: [facility] 02-28-2025 07:59-0400 Diastolic blood pressure 74 mm[Hg] Dr. Tawanna Pickard DO Work Phone: [facility] 02-28-2025 07:59-0400 Heart rate 58 /min Dr. Tawanna Pickard DO Work Phone: [facility] 02-28-2025 07:59-0400 SaO2% (BldA) [Mass fraction] 97 % Dr. Tawanna Pickard DO Work Phone: [facility] 02-28-2025 07:59-0400 Systolic blood pressure 136 mm[Hg] Dr. Tawanna Pickard DO Work Phone: [facility] 10-27-2023 08:01-0400 Body height 162.[address] Tawanna Pickard Work Phone: [facility] 10-27-2023 08:01-0400 Body mass index (BMI) [Ratio] 38 kg/m2 Dr. Tawanna Pickard Work Phone: [facility] 10-27-2023 08:01-0400 Body temperature 98.6 [degF] Dr. Tawanna Pickard Work Phone: [facility] 10-27-2023 08:01-0400 Body weight 100.[address] Tawanna Fast Work Phone: [facility] 10-27-2023 08:01-0400 Diastolic blood pressure 70 mm[Hg] Dr. Stacy Fast Work Phone: [facility] 10-27-2023 08:01-0400 Heart rate 60 /min Dr. Stacy Fast Work Phone: [facility] 10-27-2023 08:01-0400 SaO2% (BldA) [Mass fraction] 95 % Dr. Stacy Fast Work Phone: [facility] 10-27-2023 08:01-0400 Systolic blood pressure 144 mm[Hg] Dr. Stacy Fast Work Phone: [facility] 10-28-2022 07:56-0400 Body weight 94.35 kg Tawanna [...] 01-14-2022 07:55-0400 Body height 167.64 cm [facility]; [facility] Work Phone: 01-14-2022 07:55-0400 Body mass index (BMI) [Ratio] 33.89 kg/m2 [facility]un [facility] Medicine; [facility] Work Phone: 01-14-2022 07:55-0400 Body surface area Derived from formula 2.04 m2 [facility]; [facility] Work Phone: 01-14-2022 07:55-0400 Body temperature 97 [degF] [facility]; [facility] Work Phone: Comment on above: Method: Thermal Scan 01-14-2022 07:55-0400 Body weight 95.26 kg [facility]; [facility] Work Phone: 01-14-2022 07:55-0400 Diastolic blood pressure 82 mm[Hg] Eun Arrington [facility] Internal Medicine; [facility] Medicine Work Phone: Comment on above: Patient Position: Sitting; Cuff Location : Left Arm; Cuff Size: Standard 01-14-2022 07:55-0400 Heart rate 70 /min Eun Arrington [facility] Internal Medicine; [facility] Work Phone: Comment on above: Pattern: Regular 01-14-2022 07:55-0400 Respiratory rate 16 /min Eun Arrington [facility] Comprehensive Internal Medicine; [facility] Work Phone: Comment on above: Pattern: Unlabored 01-14-2022 07:55-0400 Systolic blood pressure 135 mm[Hg] Eun Arrington [facility] Internal Medicine; [facility] Work Phone: Comment on above: Patient Position: Sitting; Cuff Location : Left Arm; Cuff Size: Standard 09-10-2021 11:18-0500 Body height 167.64 cm Eun Arrington [facility] Comprehensive Internal Medicine; [facility] Work Phone: 09-10-2021 11:18-0500 Body mass index (BMI) [Ratio] 32.44 kg/m2 Eun Arrington [facility] Internal Medicine; [facility] Work Phone: 09-10-2021 11:18-0500 Body surface area Derived from formula 2 m2 Eun Arrington [facility] Internal Medicine; [facility] Work Phone: 09-10-2021 11:18-0500 Body temperature 96.9 [degF] Eun Arrington [facility] Medicine; [facility] Work Phone: Comment on above: Method: Thermal Scan 09-10-2021 11:18-0500 Body weight 91.17 kg Eun Arrington [facility] Medicine; [facility] Work Phone: 09-10-2021 11:18-0500 Diastolic blood pressure 68 mm[Hg] Eun Arrington [facility] Medicine; [facility] Work Phone: Comment on above: Patient Position: Sitting; Cuff Location : Left Arm; Cuff Size: Standard 09-10-2021 11:18-0500 Heart rate 74 /min Eun Arrington [facility] Medicine; [facility] Work Phone: Comment on above: Pattern: Regular 09-10-2021 11:18-0500 Respiratory rate 16 /min Eun Arrington [facility] Internal Medicine; [facility] Medicine Work Phone: Comment on above: Pattern: Unlabored 09-10-2021 11:18-0500 Systolic blood pressure 122 mm[Hg] Eun Arrington [facility] Internal Medicine; [facility] Work Phone: Comment on above: Patient Position: Sitting; Cuff Location : Left Arm; Cuff Size: Standard 05-17-2021 08:25-0500 Body height 167.64 cm Eun Arrington [facility] Internal Medicine; [facility] Work Phone: 05-17-2021 08:25-0500 Body mass index (BMI) [Ratio] 32.44 kg/m2 Eun Arrington [facility] Internal Medicine; [facility] Work Phone: 05-17-2021 08:25-0500 Body surface area Derived from formula 2 m2 Eun Arrington [facility] Medicine; [facility] Work Phone: 05-17-2021 08:25-0500 Body temperature 97.1 [degF] Eun Arrington [facility] Medicine; [facility] Work Phone: Comment on above: Method: Thermal Scan 05-17-2021 08:25-0500 Body weight 91.17 kg Eun Arrington [facility] Medicine; [facility] Work Phone: 05-17-2021 08:25-0500 Diastolic blood pressure 70 mm[Hg] Eun Arrington [facility] Medicine; [facility] Work Phone: Comment on above: Patient Position: Sitting; Cuff Location : Left Arm; Cuff Size: Standard 05-17-2021 08:25-0500 Heart rate 88 /min Eun Arrington [facility] Internal Medicine; [facility] Medicine Work Phone: Comment on above: Pattern: Regular 05-17-2021 08:25-0500 Respiratory rate 16 /min Eun Arrington [facility] Internal Medicine; [facility] Work Phone: Comment on above: Pattern: Unlabored 05-17-2021 08:25-0500 Systolic blood pressure 126 mm[Hg] Eun Arrington [facility] Internal Medicine; [facility] Work Phone: Comment on above: Patient Position: Sitting; Cuff Location : Left Arm; Cuff Size: Standard 11-18-2020 09:54-0400 Body height 167.64 cm Eun Arrington [facility] Internal Medicine; [facility] Work Phone: 11-18-2020 09:54-0400 Body mass index (BMI) [Ratio] 32.44 kg/m2 Eun Arrignton [facility] Internal Medicine; [facility] Work Phone: 11-18-2020 09:54-0400 Body surface area Derived from formula 2 m2 Eun Arrington [facility] Medicine; [facility] Work Phone: 11-18-2020 09:54-0400 Body temperature 97.1 [degF] Eun Arrington [facility] Internal Medicine; [facility] Work Phone: Comment on above: Method: Thermal Scan 11-18-2020 09:54-0400 Body weight 91.17 kg Eun Arrington [facility] Internal Medicine; [facility] Work Phone: 11-18-2020 09:54-0400 Diastolic blood pressure 70 mm[Hg] Eun Arrington [facility] Medicine; [facility] Medicine Work Phone: Comment on above: Patient Position: Sitting; Cuff Location : Left Arm; Cuff Size: Standard 11-18-2020 09:54-0400 Heart rate 70 /min Eun Arrington [facility] Internal Medicine; [facility] Work Phone: Comment on above: Pattern: Regular 11-18-2020 09:54-0400 Respiratory rate 16 /min Eun Arrington [facility] Internal Medicine; [facility] Work Phone: Comment on above: Pattern: Unlabored 11-18-2020 09:54-0400 Systolic blood pressure 120 mm[Hg] Eun Arrington [facility] Internal Medicine; [facility] Work Phone: Comment on above: Patient Position: Sitting; Cuff Location : Left Arm; Cuff Size: Standard 07-15-2020 09:42-0500 BMI (Body Mass Index) 32.44 kg/m2 Eun Arrington [facility] Internal Medicine; [facility] Work Phone: 07-15-2020 09:42-0500 Body Temperature 96.9 [degF] Eun Arrington [facility] Medicine; [facility] Work Phone: Comment on above: Method: Thermal Scan 07-15-2020 09:42-0500 Body weight 91.17 kg Eun Arrington [facility] Medicine; [facility] Work Phone: 07-15-2020 09:42-0500 BP Diastolic 70 mm[Hg] Eun Arrington [facility] Internal Medicine; [facility] Work Phone: Comment on above: Patient Position: Sitting; Cuff Location : Left Arm; Cuff Size: Standard 07-15-2020 09:42-0500 BP Systolic 126 mm[Hg] Eun Arrington [facility] Internal Medicine; [facility] Work Phone: Comment on above: Patient Position: Sitting; Cuff Location : Left Arm; Cuff Size: Standard 07-15-2020 09:42-0500 BSA (Body Surface Area) 2 m2 Eun Arrington [facility] Internal Medicine; [facility] Work Phone: 07-15-2020 09:42-0500 Height 167.64 cm Eun Arrington [facility] Internal Medicine; [facility] Work Phone: 07-15-2020 09:42-0500 Pulse (Heart Rate) 75 /min Eun Arrington [facility] Internal Medicine; [facility] Work Phone: Comment on above: Pattern: Regular 07-15-2020 09:42-0500 Respiratory Rate 16 /min Eun Arrington [facility] Internal Medicine; [facility] Internal Medicine Work Phone: Comment on above: Pattern: Unlabored 04-07-2020 08:56-0400 BMI (Body Mass Index) 33.09 kg/m2 Eun Arrington [facility] Internal Medicine Work Phone: 04-07-2020 08:56-0400 Body Temperature 97.3 [degF] Eun Arrington [facility] Internal Medicine Work Phone: Comment on above: Method: Thermal Scan 04-07-2020 08:56-0400 Body weight 92.99 kg Eun Arrington [facility] Internal Medicine Work Phone: 04-07-2020 08:56-0400 BP Diastolic 70 mm[Hg] Eun Arrington [facility] Internal Medicine Work Phone: Comment on above: Patient Position: Sitting; Cuff Location : Left Arm; Cuff Size: Standard 04-07-2020 08:56-0400 BP Systolic 124 mm[Hg] Eun Arrington [facility] Internal Medicine Work Phone: Comment on above: Patient Position: Sitting; Cuff Location : Left Arm; Cuff Size: Standard 04-07-2020 08:56-0400 BSA (Body Surface Area) 2.02 m2 Eun Arrington [facility] Internal Medicine Work Phone: 04-07-2020 08:56-0400 Height 167.64 cm Eun Arrington [facility] Internal Medicine Work Phone: 04-07-2020 08:56-0400 Pulse (Heart Rate) 71 /min Eun Arrington [facility] Internal Medicine Work Phone: Comment on above: Pattern: Regular 04-07-2020 08:56-0400 Respiratory Rate 16 /min Eun Arrington [facility] Comprehensive Internal Medicine Work Phone: Comment [...] Standard 12-09-2019 14:01-0400 BP Systolic 130 mm[Hg] Esthela Briceño RN [facility] [...] (Body Mass Index) 34.28 kg/m2 Marilee Slarb DIRECTOR OF PHOTOGRAPHY [facility] Work Phone: 05-13-2019 09:38-0500 Body Temperature 97 [degF] Marilee Slarb DIRECTOR OF PHOTOGRAPHY [facility] Work Phone: 05-13-2019 09:38-0500 Body weight 96.33 kg Marilee Slarb DIRECTOR OF PHOTOGRAPHY [facility] Work Phone: 05-13-2019 09:38-0500 BP Diastolic 82 mm[Hg] Marilee Slarb DIRECTOR OF PHOTOGRAPHY [facility] Work Phone: Comment on above: Patient Position: Sitting; Cuff Location : Left Arm; Cuff Size: Standard 05-13-2019 09:38-0500 BP Systolic 132 mm[Hg] Marilee Slarb DIRECTOR OF PHOTOGRAPHY [facility] Work Phone: Comment on above: Patient Position: Sitting; Cuff Location : Left Arm; Cuff Size: Standard 05-13-2019 09:38-0500 BSA (Body Surface Area) 2.05 m2 Marilee Slarb DIRECTOR OF PHOTOGRAPHY [facility] Work Phone: 05-13-2019 09:38-0500 Height 167.64 cm Marilee Slarb DIRECTOR OF PHOTOGRAPHY [facility] Work Phone: 05-13-2019 09:38-0500 Pulse (Heart Rate) 76 /min Marilee Slarb DIRECTOR OF PHOTOGRAPHY Comprehensiv e Internal Medicine Work Phone: Comment on above: Pattern: Regular 05-13-2019 09:38-0500 Pulse Oximetry 96 % Tawanna Fast [facility] Work Phone: Comment on above: Room air 05-13-2019 09:38-0500 Respiratory Rate 16 /min Marilee Slarb DIRECTOR OF PHOTOGRAPHY [facility] Work Phone: Comment on above: Pattern: Unlabored 05-13-2019 09:38-0500 SaO2% (BldA) [Mass fraction] 96 % Marilee Hairston NATHALIE [facility] Internal Medicine; [facility] Internal Medicine Work Phone: Comment on above: Room air 12-07-2018 09:13-0400 BMI (Body Mass Index) 33.25 kg/m2 Eun Arrington [facility] Internal Medicine Work Phone: 12-07-2018 09:13-0400 Body Temperature 97.6 [degF] Eun Arrington [facility] Internal Medicine Work Phone: Comment on above: Method: Temporal 12-07-2018 09:13-0400 Body weight 93.44 kg Eun Arrington [facility] Internal Medicine Work Phone: 12-07-2018 09:13-0400 BP Diastolic 72 mm[Hg] Eun Arrington [facility] Internal Medicine Work Phone: Comment on above: Patient Position: Sitting; Cuff Location : Left Arm; Cuff Size: Standard 12-07-2018 09:13-0400 BP Systolic 130 mm[Hg] Eun Arrington [facility] Internal Medicine Work Phone: Comment on above: Patient Position: Sitting; Cuff Location : Left Arm; Cuff Size: Standard 12-07-2018 09:13-0400 BSA (Body Surface Area) 2.03 m2 Eun Arrington [facility] Internal Medicine Work Phone: 12-07-2018 09:13-0400 Height 167.64 cm Eun Arrington [facility] Internal Medicine Work Phone: 12-07-2018 09:13-0400 Pulse (Heart Rate) 70 /min Eun Arrington [facility] Internal Medicine Work Phone: Comment on above: Pattern: Regular 12-07-2018 09:13-0400 Respiratory Rate 16 /min Eun Arrington [facility] Internal Medicine Work Phone: Comment on above: Pattern: Unlabored 12-07-2018 09:13-0400 Weight 93.44 kg Tawanna Neeraj [facility] Internal Medicine Work Phone: 08-27-2018 07:55-0500 BMI (Body Mass Index) 34.06 kg/m2 Eun Arrington [facility] Internal Medicine Work Phone: 08-27-2018 07:55-0500 Body Temperature 97.1 [degF] Eun Arrington [facility] Internal Medicine Work Phone: Comment on above: Method: Temporal 08-27-2018 07:55-0500 Body weight 95.71 kg Eun Arrington [facility] Internal Medicine Work Phone: 08-27-2018 07:55-0500 BP Diastolic 70 mm[Hg] Eun Arrington [facility] Internal Medicine Work Phone: Comment on above: Patient Position: Sitting; Cuff Location : Left Arm; Cuff Size: Standard 08-27-2018 07:55-0500 BP Systolic 124 mm[Hg] Eun Arrington [facility] Internal Medicine Work Phone: Comment on above: Patient Position: Sitting; Cuff Location : Left Arm; Cuff Size: Standard 08-27-2018 07:55-0500 BSA (Body Surface Area) 2.05 m2 Enu Arrington [facility] Internal Medicine Work Phone: 08-27-2018 07:55-0500 Height 167.64 cm Eun Arrington [facility] Internal Medicine Work Phone: 08-27-2018 07:55-0500 Pulse (Heart Rate) 78 /min Eun Arrington [facility] Internal Medicine Work Phone: Comment on above: Pattern: Regular 08-27-2018 07:55-0500 Respiratory Rate 16 /min Eun Arrington [facility] Internal Medicine Work Phone: Comment on above: Pattern: Unlabored 08-27-2018 07:55-0500 Weight 95.71 kg Tawanna Pickard [facility] Internal Medicine Work Phone: 11-27-2012 13:56-0400 BMI (Body Mass Index) 28.41 kg/m2 Kathie Harding [facility] Internal Medicine Work Phone: 11-27-2012 13:56-0400 Body Temperature 97.8 [degF] Kathie Harding [facility] Internal Medicine Work Phone: 11-27-2012 13:56-0400 Body weight 79.83 kg Kathie Harding [facility] Internal Medicine Work Phone: 11-27-2012 13:56-0400 BP Diastolic 74 mm[Hg] Kathie Harding [facility] Internal Medicine Work Phone: Comment on above: Patient Position: Sitting; Cuff Location : Left Arm; Cuff Size: Large 11-27-2012 13:56-0400 BP Systolic 114 mm[Hg] Kathie Harding [facility] Internal Medicine Work Phone: Comment on above: Patient Position: Sitting; Cuff Location : Left Arm; Cuff Size: Large 11-27-2012 13:56-0400 BSA (Body Surface Area) 1.89 m2 Kathie Harding [facility] Internal Medicine Work Phone: 11-27-2012 13:56-0400 Height 167.64 cm Kathie Harding [facility] Internal Medicine Work Phone: 11-27-2012 13:56-0400 Pulse (Heart Rate) 82 /min Kathie Harding Comprehens[facility] e Internal Medicine Work Phone: Comment on above: Pattern: Regular 11-27-2012 13:56-0400 Respiratory Rate 16 /min Kathie Harding [facility] Internal Medicine Work Phone: Comment on above: Pattern: Unlabored 11-27-2012 13:56-0400 Weight 79.83 kg Tawanna Fast [facility] Work Phone: 10-17-2012 13:48-0400 BMI (Body Mass Index) 29.87 kg/m2 Ava Tubbs LPN [facility] Work Phone: 10-17-2012 13:48-0400 Body Temperature 98.7 [degF] vAa Tubbs LPN Comprehensiv e Internal Medicine Work [...] Type Care Provider Facility Start: 07-09-2025 ambulatory [facility] Facility :[facility] Start: 06-04-2025 [facility] Start: 05-09-2025 End: 05-09-2025 ambulatory Tawanna Fast Facility:[facility] Start: 05-06-2025 ambulatory Tawanna Fast Facility:[facility] Start: 05-06-2025 End: 05-06-2025 ambulatory Tawanna Fast Facility:[facility] Start: 02-28-2025 End: 02-28-[address] Landen Evangelista MD -[facility] Work Phone: Start: 02-28-2025 End: 02-28-[address] Tawanna Pickard DO Work Phone: [facility] Start: 12-06-2024 End: 12-06-2024 Patient encounter procedure Quintin Shay PA-C Work Phone: Orthopaedics Comment on above: Bilateral carpal michell nasir syndrome (Primary Dx) Start: 12-06-2024 End: 12-06-2024 ambulatory QUINTIN SHAY Facility:[facility] Start: 08-30-2024 End: 08-30-2024 ambulatory Tawanna Pickard Facility:[place] Start: 10-27-2023 End: 10-27-[address] Tawanna Pickard Work Phone: [facility] Work Phone: Start: 10-27-2023 End: 10-27-[address] Tawanna Pickard Work Phone: [facility] Work Phone: Start: 03-23-2023 End: 03-23-2023 ambulatory JOSLYN DU Facility:[id number] Start: 03-23-2023 End: 03-23-2023 Office outpatient visit 15 minutes Joslyn Du MD Work Phone: [facility] Comment on above: Traumatic brain inju ry, without loss of consciousness, subsequent encounter (Primary Dx); Closed skull fracture with cerebral contusion with routine healing, subsequent encounter Start: 03-11-2023 ambulatory JOSLYN TURCIOS Facilit y:[facility] Start: 03-11-2023 End: 03-11-2023 Subsequent hospital visit by physician Ct [facility] RADIO CT SCAN C GREEN Comment on above: Cerebral hemorrhage (HCC) [I61.9] Start: 03-02-2023 End: 03-02-2023 ambulatory JOSLYN DU Facility:[id number] Start: 03-02-2023 End: 03-02-2023 Nursing evaluation of patient and report Joslyn Du MD Work Phone: [facility] Comment on above: Laceration of scalp, sequela (Primary Dx) Start: 02-24-2023 End: 02-24-2023 Phone Encounter Tawanna Fast DO Work Phone: [facility] Start: 02-21-2023 Telephone encounter Joslyn Du MD Work Phone: [facility] Comment on above: Orders Appointment Start: 02-19-2023 End: 02-20-2023 Evaluation and management of inpatient RADHA CAMARILLO Facility:[id number] Start: 02-19-2023 End: 02-19-2023 ambulatory THAD ARREOLARO Facility:[id number] Start: 10-28-2022 Review Tawanna Fast DO Work [...] End: 08-13-2018 Phone Encounter Tawanna Pickard [facility] Start: 09-22-2017 End: 09-22-2017 Phone Encounter Tawanna Pickard [facility] Start: 08-21-2017 Review Tawanna Neeraj [facility] Start: 02-14-2017 End: 02-14-2017 Office outpatient visit 25 minutes Tawanna Pickard [facility] Start: 02-13-2017 End: 02-13-2017 Phone Encounter Tawanna Neeraj [facility] Start: 09-12-2016 End: 09-12-2016 Office outpatient visit 5 minutes Tawanna Pickard [facility] Start: 10-14-2013 End: 10-14-2013 Phone Encounter Tawanna Pickard [facility] Start: 07-31-2013 End: 07-31-2013 Phone Encounter Tawanna Pickard [facility] Start: 11-27-2012 End: 11-27-2012 [...] End: 11-20-2012 Phone Encounter Tawanna Pickard [facility] Start: 07-31-2012 End: 07-31-2012 [...] End: 06-18-2012 Phone Encounter Tawanna Neeraj [facility] Start: 06-18-2012 End: 06-18-2012 Annotation/Addendum Tawanna Neeraj [facility] Start: 06-15-2012 End: 06-15-2012 Lab Order Tawanna Pickard [facility] Start: 05-18-2012 End: 05-18-2012 Annotation/Addendum Tawanna Fast [facility] Start: 05-16-2012 End: 05-16-2012 Lab Order Tawanna Neeraj [facility] Start: 12-27-2011 End: 12-27-2011 Annotation/Addendum Tawanna Fast [facility] Start: 09-13-2011 End: 09-13-2011 Office outpatient visit 25 minutes Tawannarory Pickard [facility] Start: 08-29-2011 End: 08-29-2011 Annotation/Addendum Tawanna Neeraj [facility] Start: 08-29-2011 End: 08-29-2011 Patient encounter procedure Tawanna Neeraj [facility] Start: 08-23-2011 End: 08-23-2011 Refill Request Tawanna Neeraj [facility] Start: 08-15-2011 End: 08-15-2011 Phone Encounter Tawanna Neeraj [facility] Start: 02-02-2011 End: 02-02-2011 Patient encounter procedure Tawanna Pickard [facility] Start: 02-01-2011 End: 02-01-2011 Phone Encounter Tawanna Fast [facility] Start: 12-30-2009 End: 01-06-2010 Historical Summary Tawannarory Pickard [facility] Procedures Date Procedure Procedure Detail Performing Clinician Start: 12-06-2024 Injection therapeutic carpal tunnel Quintin Shay PA-C Work Phone: Start: 12-12-2022 End: 12-12-2022 Endocrinology Visit Report Procedure Note: See Note; NOTES: [facility] [address] [place] [address] [address] [place], [place] [id number] OFFICE VISIT Date of Service: 12/12/22 MR#: [id number] Acct: [id number] Name: FRANCISCO CRENSHAW Rep #: [id number] : 1975 Provider: Sonya Massey Age/Sex: 47/M Location: [facility] Status: Signed Intake Vital Signs 12/12/22 08:11 Height 5 ft 4 in Weight: 214 lb 4 oz BMI 36.8 BP 140/86 H Blood Pressure Location Lt brachial Position Sitting Respiration 16 Pulse 67 Pulse Source Monitor Temp 97.9 F Temp Source Temporal Pulse Oximetry (%) 96 Oxygen Delivery Method room air Intake Visit Reasons: 6 M FU Chief Complaint: Diabetes Tow Mate Required: No Is patient in pain?: No Allergies No Known Allergies Allergy (Verified 12/12/22 08:12) Nurse's Note: 3 [facility] Medical History Diabetes mellitus type 1 High [...] position. He states he has switched to [employer] sites due to difficulty getting others to [...] 3 Views Procedure Note: See Note; NOTES: [facility] [address] [place] [address] Wrist min 3 Views MR#: [id number] Acct: [id number] Name: FRANCISCO CRENSHAW Rep #: [id number] : 1975 M 46 From: Alan Bill MD PCP: Dr. Tawanna Pickard, Status: DEP AMB Study: Wrist min 3 Views Date of Exam: 07/13/22 Exam# [id number] Ordering Dr: Tawanna Pickard DO STUDY: X-RAY - RIGHT WRIST [...] EST , CC: Dr. Tawanna Pickard DO Stained Glass Glazier Helper: Signed Tawanna Pickard DO Work Phone: Start: 06-24-2022 End: 07-04-2022 Endocrinology Visit Report Procedure Note: See Note; NOTES: [facility] [address] [place] [address] OFFICE VISIT Date of Service: 06/24/22 MR#: [id number] Acct: [id number] Name: FRANCISCO CRENSHAW Rep #: [id number] : 1975 Provider: Sonya Massey Age/Sex: 46/M Location: [facility] Status: Signed Intake Vital Signs 06/24/22 08:33 Height 5 ft 7 in Weight: 205 lb 4 oz BMI 32.1 BP 138/85 H Blood Pressure Location Rt brachial Position Sitting Respiration 18 Pulse 82 Pulse Source Monitor Temp 97.1 F L Temp Source Temporal Pulse Oximetry (%) 97 Oxygen Delivery Method room air Intake Visit Reasons: 6 M FU Chief Complaint: Diabetes Tow Mate Required: No Accompanied by: Self Is patient in pain?: No Allergies No Known Allergies Allergy (Verified 06/24/22 08:39) Nurse's Note: Pt had A1C 06/22/22 7.3% [facility] Medical History (Updated 07/04/22 @ 10:20 by [...] Endocrinology Visit Report Comments: See Note; NOTES: [facility] [address] [place] [address]. [address] [place] [address] OFFICE VISIT Date of Service: 11/19/21 MR#: [id number] Acct: [id number] Name: FRANCISCO CRENSHAW Rep #: [id number] : 1975 Provider: Sonya Massey Age/Sex: 46/M Location: [facility] Status: Signed Intake Vital Signs 11/19/21 09:09 Height 5 ft 7 in Weight: 203 lb 6 oz BMI 31.8 BP 140/82 H Blood Pressure Location Rt brachial Position Sitting Respiration 18 Pulse 73 Pulse Source Monitor Temp 96.5 F L Temp Source Temporal Pulse Oximetry (%) 98 Oxygen Delivery Method room air Intake Visit Reasons: 6 M FU Chief Complaint: Diabetes Tow Mate Required: No Accompanied by: self Is patient in pain?: No Allergies No Known Allergies Allergy (Verified 11/19/21 09:16) [facility] Medical History Diabetes High cholesterol Family History [...] Endocrinology Visit Report Comments: See Note; NOTES: [facility] [address] [place] [address] OFFICE VISIT Date of Service: 05/21/21 MR#: [id number] Acct: [id number] Name: FRANCISCO CRENSHAW Rep #: [id number] : 1975 Provider: Sonya Massey Age/Sex: 45/M Location: [facility] Status: Signed Intake Vital Signs 05/21/21 09:34 05/21/21 09:42 Height 5 ft 7 in Weight: 200 lb 8 oz BMI 31.4 30.7 BP 118/80 Blood Pressure Location Rt brachial Position Sitting Respiration 16 Pulse 89 Pulse Source Monitor Temp 97.1 F L Temp Source Temporal Pulse Oximetry (%) 97 Oxygen Delivery Method room air Intake Visit Reasons: 6 M FU Chief Complaint: Diabetes Tow Mate Required: No Accompanied by: self Is patient in pain?: No Allergies No Known Allergies Allergy (Verified 05/21/21 09:41) [facility] Medical History (Updated 03/19/21 @ 13:16 by Ewa Jorgensen PRODUCTION PLANNER SCHEDULER, PRODUCTION PLANNER SCHEDULER-C) Diabetes High cholesterol Family History Other Diabetes [...] nourished Orientation: alert, awake and oriented x3 [facility] Head: normal to inspection Ears: hearing grossly [...] Virtual Office Visit Comments: See Note; NOTES: [facility] [address] [place] [address]. [place] [address] OFFICE VISIT Date of Service: 03/19/21 MR#: [id number] Acct: [id number] Patient: FRANCISCO CRENSHAW Rep #: [id number] : 1975 Provider: KENDALL mcdaniels Age/Sex: 45/M Location: [facility] Status: Signed Intake Intake Visit Reasons: COVID-19 [...] DAILY #90 tab 01/15/21 [Rx Confirmed 03/19/21] [facility] Medical History (Updated 03/19/21 @ 13:16 by [...] with no video. Quality Reporting Tobacco Screening ([facility] 138) Smoking Status: Never smoker Coding Level of Care Code New Pt Level 2 Telephone Patient Type New History Problem Focused Exam Problem Focused Medical Decision Making Low Complexity Diagnoses COVID-19 U07.1 Type I diabetes mellitus E10.9 BMI 30.0-30.9,adult Z68.30 Time Spent (min) 10 Comment phone visit Assessment and Plan Assessment and Plan (1) COVID-19: Status: Acute Plan - Ewa Jorgensen PRODUCTION PLANNER SCHEDULER, PRODUCTION PLANNER SCHEDULER-C: The patient remains appropriate for the Monoclonal Antibody Infusion. The patient states understanding of this information communicated and wishes to proceed with monoclonal antibody infusion therapy. Patient agrees to receive either balanivimab/etesvimab or casirivimab/imdevimab upon availability. (2) Type I diabetes mellitus: Status: Acute (3) BMI 30.0-30.9,adult: Status: Acute 03/19/21 1316 <Electronically signed by Ewa Jorgensen NP PRODUCTION PLANNER SCHEDULER-C> Date Ewa Jorgensen NP PRODUCTION PLANNER SCHEDULER-C Cosigner Signature: Date (if applicable) CC: Dr. Tawanna Pickard, DO Tawanna Pickard DO Work Phone: Start: 11-19-2020 End: 11-19-2020 Endocrinology Visit Report Comments: See Note; NOTES: [facility] [address] [place] [address]. [address] [place] [address] OFFICE VISIT Date of Service: 11/19/20 MR#: [id number] Acct: [id number] Name: FRANCISCO CRENSHAW Rep #: [id number] : 1975 Provider: Sonya Massey Age/Sex: 45/M Location: [facility] Status: Signed Intake Vital Signs 11/19/20 11:00 [...] M FU-R/S FROM [facility] Chief Complaint: Diabetes Tow Mate Required: No Accompanied by: None Is patient in pain?: No Allergies No Known Allergies Allergy (Verified 11/19/20 11:08) [facility] Medical History Diabetes High cholesterol Family History [...] as well as documenting clinical information. 11/19/20 3439 <Electronically signed by Landen Evangelista MD> Date Landen Evangelista MD Cosigner Signature: Date (if applicable) CC: Dr. Tawanna Pickard, DO Tawanna Pickard DO Work Phone: Start: 06-11-2020 End: 06-12-2020 Endocrinology Visit Report Comments: See Note; NOTES: [facility] [address] [place] [address] OFFICE VISIT Date of Service: 06/11/20 MR#: [id number] Acct: [id number] Name: FRANCISCO CRENSHAW Rep #: [id number] : 1975 Provider: Sonya Massey Age/Sex: 44/M Location: [facility] Status: Signed Intake Vital Signs 06/11/20 Height 5 ft 8 in 06/11/20 Weight: 202 lb 06/11/20 BMI 30.7 06/11/20 BP 124/80 H Intake Visit Reasons: 4 M FU Chief Complaint: Diabetes Allergies No Known Allergies Allergy (Verified 06/11/20 09:20) [facility] Medical History Diabetes (Acute) High cholesterol (Acute) [...] Blood Flow Screening Comments: See Note; NOTES: [facility] [place] [address] 04/22/20 0935 MR#: [id number] Acct: [id number] Name: FRANCISCO CRENSHAW Rep #: [id number] : 1975 44 From: Massimo Costello MD [...] Dictated: 04/22/20 0935 Date Transcribed: 04/23/20 1246 Stained Glass Glazier Helper: Signed Tawanna Pickard Start: 02-10-2020 End: 02-10-2020 Endocrinology Visit Report Comments: See Note; NOTES: [facility] [address] [place] [address] OFFICE VISIT Date of Service: 02/06/20 MR#: [id number] Acct: [id number] Name: FRANCISCO CRENSHAW Rep #: [id number] : 1975 Provider: Snoya Massey Age/Sex: 44/M Location: [facility] Status: Signed Intake Vital Signs 02/10/20 BMI 32.3 02/06/20 Height 5 ft 8 in 02/06/20 Weight: 205 lb 02/06/20 BMI 31.1 02/06/20 BP 124/78 H Intake Visit Reasons: 4 month f/u Chief Complaint: Diabetes Allergies No Known Allergies Allergy (Verified 08/26/19 09:58) [facility] Social History (Updated 02/10/20 @ 11:29 by [...] Virtual Office Visit Comments: See Note; NOTES: [facility] [address] [place] [address] OFFICE VISIT Date of Service: 10/07/19 MR#: [id number] Acct: [id number] Patient: FRANCISCO CRENSHAW Rep #: [id number] : 1975 Provider: Landen Evangelista MD Age/Sex: 44/M Location: [facility] Status: Signed Intake Vital Signs10/07/19 BMI 32.3 Intake Visit Reasons: 3 MONTH F/U Chief Complaint: Diabetes Allergies No Known Allergies Allergy (Verified 08/26/19 09:58) [facility] Social History (Updated 10/07/19 @ 13:22 by [...] with no video. Quality Reporting BMI Screening ([facility] 69) Body Mass Index (BMI): 32.3 Tobacco Screening ([facility] 138) Smoking Status: Never smoker Assessment AND [...] Office Visit Report Comments: See Note; NOTES: [facility] [address] [place] [address] OFFICE VISIT Date of Service: 07/08/19 MR#: [id number] Acct: [id number] Patient: FRANCISCO CRENSHAW Rep #: [id number] : 1975 Provider: Landen Evangelista MD Age/Sex: 43/M Location: [place] Status: Signed Intake Vital Signs07/08/19 Height 5 [...] PA and Lateral Comments: See Note; NOTES: [facility] Imaging Services [address] [place] [address] Chest PA and Lateral MR#: [id number] Acct: [id number] Name: FRANCISCO CRENSHAW Carol Rep #: [id number] : 1975 M 41 From: Robbie Workman MD PCP: Tawanna Pickard DO Status: REG CLI Study: Chest PA and Lateral Date of Exam: 02/13/17 Exam# [id number] Ordering Dr: Tawanna Pickard DO STUDY: X-RAY [...] Robbie Workman MD at 15:48 EDT Tel [phone], Service support , CC: Tawanna Pickard DO Stained Glass Glazier Helper: Signed Tawanna Pickard Work Phone: Tonsil[facility] Eun Elzbieta k Tonsillectomy Marilee Hairston Tonsillectomy [facility]un [place] k Tonsillectomy Eun Elzbieta k Tonsillectomy Eun Elzbieta k Tonsillectomy Kathie [place] Tonsillectomy Eun Elzbieta k RADIOLOGY DIRECTOR Tonsillectomy Eun Elzbieta k RADIOLOGY DIRECTOR Tonsillectomy Eun Elzbieta k RADIOLOGY DIRECTOR Tonsillectomy Eun Elzbieta k RADIOLOGY DIRECTOR Tonsillectomy Eun Elzbieta k RADIOLOGY DIRECTOR Plan of Treatment Date Care Activity Detail Author Start: 02-19-2033 Urine microalbumin profile [facility] Start: 03-16-2025 Hepatitis B Vaccine (3 of 3 - Hep B Twinrix 3-dose series) Hepatitis B Vaccine (3 of 3 - Hep B Twinrix 3-dose series) [facility] Start: 03-12-2025 End: 03-12-2025 Patient encounter procedure 03/12/2025 8:00 AM EDT Office Visit Orthopaedics [address] [place] [address] Quintin Shay PA-C [address] [place] [address] 3 month follow up right wrist Orthopaedics Comment on above: 3 month follow up ri ght wrist Start: 03-10-2025 Influenza vaccination Influenz a Vaccine (Season Ended) [facility] Start: 03-10-2024 Covid-19 Vaccine ( season) Covid-19 Vaccine ( season) [facility] Start: 03-14-2023 End: 03-22-2024 CT BRAIN WO IVCON CT BRAIN WO IVCON Radiology Routine Cerebral hemorrhage (HCC) Expected: 03/14/2023, Expires: 03/22/2024 [facility] Work Phone: Comment on above: Expected: 03/14/2023 , Expires: 03/22/2024 Start: 03-10-2023 Influenza vaccination [facility] Start: 10-28-2022 Procedure Education Eprescribe d prescriptions (G8553) [facility]; [facility] Work Phone: Start: 10-28-2022 Hemoglobin glycosyla iqra a1c HGB A1C (24431) [facility]; [facility] Work Phone: Start: 10-28-2022 Lipid panel LIPID PANEL (04894) [facility]; [facility] Work Phone: Start: 10-28-2022 Blood count complete auto&auto difrntl wbc CBC W/AUTO DIFF WBC (26208) [facility]; [facility] Work Phone: Start: 10-28-2022 Comprehensive metabo lic panel METABOLIC PANEL, COMPREHENSIVE (00913) [facility]; [facility] Work Phone: Start: 2022 COLOGUARD (FIT-DNA) COLOGUARD (FIT-D NA) [facility] Start: 2022 Colonoscopy COLONOSCOPY [facility] Start: 2022 COLORECTAL CANCER SCREENING COLORECTAL CANCER SCREENING [facility] Start: [address] COLONOGRAPHY [facility] Start: 2022 FECAL OCCULT BLOOD FECAL OCCULT BLOO D [facility] Start: 2022 Screening for malign ant neoplasm of colon [facility] Start: 2022 SIGMOIDOSCOPY SIGMOIDOSCOPY [facility] Start: 07-13-2022 Procedure Education Eprescribe d prescriptions (G8553) [facility]; [facility] Work Phone: Start: 07-13-2022 Blood count complete auto&auto difrntl wbc CBC W/AUTO DIFF WBC (70011) [facility]; [facility] Work Phone: Start: 07-13-2022 Comprehensive metabo lic panel METABOLIC PANEL, COMPREHENSIVE (64035) [facility]; [facility] Work Phone: Start: 07-13-2022 Cyanocobalamin vitam in b-12 VITAMIN B12 AND FOLATES (50185) [facility]; [facility] Work Phone: Start: 07-13-2022 Assay of testosteron e free TESTOSTERONE FREE (36994) [facility]; [facility] Work Phone: Start: 07-13-2022 Assay of testosteron e total TESTOSTERONE TOTAL (87502) [facility]; [facility] Work Phone: Start: 07-10-2022 DEPRESSION ASSESSMENT DEPRESSION ASS ESSMENT [facility] Start: 01-14-2022 Procedure Education Eprescribe d prescriptions (G8553) [facility]; [facility] Work Phone: Start: 01-14-2022 25 hydroxy includes fractions if performed Vitamin D Hydroxy (03932) [facility]; [facility] Work Phone: Start: 01-14-2022 Lipid panel LIPID PANEL (68564) [facility]; [facility] Work Phone: Start: 01-14-2022 Blood count complete auto&auto difrntl wbc CBC with auto diff (22497) [facility]; [facility] Work Phone: Start: 01-14-2022 Comprehensive metabo lic panel METABOLIC PANEL, COMPREHENSIVE (91063) [facility]; [facility] Work Phone: Start: 01-14-2022 Hemoglobin glycosyla iqra a1c HGB A1C (64457) [facility]; [facility] Work Phone: Start: 01-14-2022 C-reactive protein h igh sensitivity C-REACT PROT HIGH SENS(hsCRP) (64015) [facility]; [facility] Work Phone: Start: 09-10-2021 Procedure Education Eprescribe d prescriptions (G8553) [facility]; [facility] Work Phone: Start: 09-10-2021 25 hydroxy includes fractions if performed Vitamin D Hydroxy (07024) [facility]; [facility] Work Phone: Start: 09-10-2021 Lipid panel LIPID PANEL (15023) [facility]; [facility] Work Phone: Start: 09-10-2021 Urine albumin quantitative MICROALBUMIN: CREATININE RATIO (23984) AND (02043) [facility]; [facility] Work Phone: Start: 09-10-2021 Blood count complete auto&auto difrntl wbc CBC with auto diff (52746) [facility]; [facility] Work Phone: Start: 09-10-2021 Comprehensive metabo lic panel METABOLIC PANEL, COMPREHENSIVE (74294) [facility]; [facility] Work Phone: Start: 09-10-2021 Hemoglobin glycosyla iqra a1c HGB A1C (98334) [facility]; [facility] Work Phone: Start: 07-23-2021 COVID-19 VACCINE (3 - Pfizer series) COVID-19 VACCINE (3 - Pfizer series) [facility] Start: 05-17-2021 Procedure Education Eprescribe d prescriptions (G8553) [facility]; [facility] Work Phone: Start: 05-17-2021 Comprehensive metabo lic panel METABOLIC PANEL, COMPREHENSIVE (92338) [facility]; [facility] Work Phone: Start: 05-17-2021 Hemoglobin glycosyla iqra a1c HGB A1C (87333) [facility]; [facility] Work Phone: Start: 05-17-2021 C-reactive protein h igh sensitivity C-REACT PROT HIGH SENS(hsCRP) (91755) [facility]; [facility] Work Phone: Start: 05-17-2021 25 hydroxy includes fractions if performed Vitamin D Hydroxy (29900) [facility]; [facility] Work Phone: Start: 05-17-2021 Lipid panel LIPID PANEL (76481) [facility]; [facility] Work Phone: Start: 03-18-2021 Iaadiadoo influenza 2019 Novel Coronavirus (COVID-19), EDNA (41232) [facility]; [facility] Work Phone: Start: 11-18-2020 Procedure Education Eprescribe d prescriptions (G8553) [facility]; [facility] Work Phone: Start: 11-18-2020 C-reactive protein h igh sensitivity C-REACT PROT HIGH SENS(hsCRP) (85995) [facility]; [facility] Work Phone: Start: 11-18-2020 25 hydroxy includes fractions if performed Vitamin D Hydroxy (19928) [facility]; [facility] Work Phone: Start: 11-18-2020 Lipid panel LIPID PANEL (72112) [facility]; [facility] Work Phone: Start: 11-18-2020 Blood count complete auto&auto difrntl wbc CBC with auto diff (89553) [facility] Work Phone: Start: 11-18-2020 Comprehensive metabo lic panel METABOLIC PANEL, COMPREHENSIVE (68535) [facility]; [facility] Work Phone: Start: 11-18-2020 Hemoglobin glycosyla iqra a1c HGB A1C (36751) [facility]; [facility] Work Phone: Start: 08-04-2020 Skin test tuberculos is intradermal PPD (44234) [facility]; [facility] Work Phone: Comment on above: lot: [id number]: 03/01 site/route: L forearm/transdermalamt: 0.1mLVIS signed when applicableIRISH Haq Start: 07-15-2020 Procedure Education Eprescribe d prescriptions (G8553) [facility]; [facility] Work Phone: Start: 07-15-2020 25 hydroxy includes fractions if performed Vitamin D Hydroxy (38403) [facility]; [facility] Work Phone: Start: 07-15-2020 C-reactive protein h igh sensitivity C-REACT PROT HIGH SENS(hsCRP) (63450) [facility]; [facility] Work Phone: Start: 07-15-2020 Comprehensive metabo lic panel METABOLIC PANEL, COMPREHENSIVE (74405) [facility]; [facility] Work Phone: Start: 07-15-2020 Blood count complete auto&auto difrntl wbc CBC with auto diff (07187) [facility]; [facility] Work Phone: Start: 07-15-2020 Lipid panel LIPID PANEL (90078) [facility]; [facility] Work Phone: Start: 04-07-2020 Procedure Education Eprescribe d prescriptions (G8553) [facility] Work Phone: Start: 04-07-2020 C-reactive protein h igh sensitivity C-REACT PROT HIGH SENS(hsCRP) (07330) [facility] Work Phone: Start: 04-07-2020 Comprehensive metabo lic panel METABOLIC PANEL, COMPREHENSIVE (59048) [facility] Work Phone: Start: 04-07-2020 Lipid panel LIPID PANEL (39378) [facility] Work Phone: Start: 04-07-2020 25 hydroxy includes fractions if performed Vitamin D Hydroxy (27302) [facility] Work Phone: Start: 12-09-2019 Procedure Education Eprescribe d prescriptions (G8553) [facility] Work Phone: Start: 08-14-2019 Hepatic function panel HEPATIC FUNCTION PANEL (85959) [facility] Work Phone: Start: 05-13-2019 Procedure Education Eprescribe d prescriptions (G8553) [facility] Work Phone: Start: 05-13-2019 Urine albumin quantitative MICROALBUMIN: CREATININE RATIO (98331) AND (11544) [facility] Work Phone: Start: 05-13-2019 Comprehensive metabo lic panel METABOLIC PANEL, COMPREHENSIVE (34909) [facility] Work Phone: Start: 05-13-2019 25 hydroxy includes fractions if performed Vitamin D Hydroxy (38345) [facility] Work Phone: Start: 05-13-2019 Lipid panel LIPID PANEL (79449) [facility] Work Phone: Start: 12-07-2018 Procedure Education Eprescribe d prescriptions (G8553) [facility] Work Phone: Start: 12-07-2018 Lipid panel LIPID PANEL (65037) [facility] Work Phone: Start: 12-07-2018 Blood count complete auto&auto difrntl wbc CBC W/AUTO DIFF WBC (69160) [facility] Work Phone: Start: 12-07-2018 Comprehensive metabo lic panel METABOLIC PANEL, COMPREHENSIVE (38203) [facility] Work Phone: Start: 11-07-2018 C-reactive protein h igh sensitivity C-REACT PROT HIGH SENS(hsCRP) (05791) [facility] Work Phone: Start: 11-07-2018 Protein mass conc C-REACT PROT HIGH SENS(hsCRP) (30796) [facility] Work Phone: Start: 11-07-2018 25 hydroxy includes fractions if performed Vitamin D Hydroxy (34409) [facility] Work Phone: Start: 11-07-2018 Comprehensive metabo lic panel METABOLIC PANEL, COMPREHENSIVE (10541) [facility] Work Phone: Start: 11-07-2018 Lipid panel LIPID PANEL (80224) [facility] Work Phone: Start: 09-06-2018 25 hydroxy includes fractions if performed Vitamin D Hydroxy (45963) [facility] Work Phone: Start: 09-06-2018 C-reactive protein h igh sensitivity C-REACT PROT HIGH SENS(hsCRP) (57892) [facility] Work Phone: Start: 09-06-2018 Protein mass conc C-REACT PROT HIGH SENS(hsCRP) (98579) [facility] Work Phone: Start: 09-06-2018 Blood count complete auto&auto difrntl wbc CBC W/AUTO DIFF WBC (60351) [facility] Work Phone: Start: 09-06-2018 Comprehensive metabo lic panel METABOLIC PANEL, COMPREHENSIVE (88772) [facility] Work Phone: Start: 08-27-2018 Procedure Education Eprescribe d prescriptions (G8553) [facility] Work Phone: Start: 08-13-2018 Comprehensive metabo lic panel METABOLIC PANEL, COMPREHENSIVE (51492) [facility] Work Phone: Start: 08-13-2018 Hepatic function panel HEPATIC FUNCTION PANEL (23115) [facility] Work Phone: Start: 08-13-2018 25 hydroxy includes fractions if performed CALCIFEDIOL (43228) [facility] Work Phone: Start: 08-13-2018 Lipid panel LIPID PANEL (24631) [facility] Work Phone: Start: 11-27-2012 Comprehensive metabo lic panel METABOLIC PANEL, COMPREHENSIVE (11248) [facility] Work Phone: Start: 11-27-2012 25 hydroxy includes fractions if performed Vitamin D Hydroxy (79504) [facility] Work Phone: Start: 11-27-2012 Hepatic function panel HEPATIC FUNCTION PANEL (98651) [facility] Work Phone: Start: 11-27-2012 Lipid panel LIPID PANEL (24340) [facility] Work Phone: Start: 11-27-2012 Provider Instruction s for Treatment [facility] Work Phone: Start: 11-27-2012 Hemoglobin A1c/Hemoglobin.total mass fraction (Bld) HgA1C , Office (79053) [facility] Work Phone: Start: 11-27-2012 Hemoglobin glycosyla iqra a1c HgA1C , Office (10103) [facility]; [facility] Work Phone: Start: 10-17-2012 Provider Instruction s for Treatment Follow up in 3 months [facility] Work Phone: Start: 07-19-2012 Comprehensive metabo lic panel Metabolic Panel, Comprehensive (95681) [facility] Work Phone: Comment on above: stat Start: 07-18-2012 Assay of osmolality blood OSMOLALITY BLOOD (44875) [facility] Work Phone: Start: 07-18-2012 Blood count manual c ell count each CBC with manual diff (77435) [facility] Work Phone: Start: 07-18-2012 Comprehensive metabo lic panel Metabolic Panel, Comprehensive (99473) [facility] Work Phone: Start: 06-18-2012 Lipid panel Lipid Panel (36352) [facility] Work Phone: Start: 05-16-2012 Hepatitis a antibody haab HEPATITIS A ANTBDY-IGG/IGM (12061) [facility] Work Phone: Start: 05-16-2012 Antibody varicella-zoster V-ZOSTER IgG (IMMUNITY) 86616 (87181) [facility] Work Phone: Start: 05-16-2012 Hepatitis b surf antibody hbsab HEPATITIS B SURFACE ANTIBODY (42028) [facility] Work Phone: Start: 05-16-2012 Antibody rubeola RUBEOLA ANTIB ADÁN (19770) [facility] Work Phone: Start: 05-16-2012 Antibody rubella RUBELLA ANTIB ADÁN (07566) [facility] Work Phone: Start: 05-16-2012 Antibody mumps MUMPS ANTIBODY (58025 ) [facility] Work Phone: Start: 05-16-2012 Skin test tuberculos is intradermal SKIN TEST INTRADERMAL TB (85918) [facility] Work Phone: Comment on above: 0.1 given lt forearm lot [id number] exp 09/20 Start: 12-27-2011 Hepatitis antibody h aab igm antibody HEPATITIS A ANTIBDY-IGM (96845) [facility] Work Phone: Start: 12-27-2011 Hepatitis a antibody haab HEPATITIS A ANTBDY-IGG/IGM (13862) [facility] Work Phone: Start: 12-27-2011 Antibody varicella-zoster VARICELLA-ZOSTER ANTBODY (23335) [facility] Work Phone: Start: 12-27-2011 Hepatitis b surf antibody hbsab HEPATITIS B SURFACE ANTIBODY (03074) [facility] Work Phone: Start: 12-27-2011 Antibody rubeola RUBEOLA ANTIB ADÁN (18039) [facility] Work Phone: Start: 12-27-2011 Antibody rubella RUBELLA ANTIB ADÁN (34759) [facility] Work Phone: Start: 12-27-2011 Antibody mumps MUMPS ANTIBODY (80001 ) [facility] Work Phone: Start: 12-14-2011 Lipid panel Lipid Panel (10674) [facility] Work Phone: Start: 12-14-2011 Hepatic function panel HEPATIC FUNCTION PANEL (99357) [facility] Work Phone: Start: 12-14-2011 25 hydroxy includes fractions if performed CALCIFEDIOL (67195) [facility] Work Phone: Start: 09-13-2011 Provider Instruction s for Treatment Follow up in 3 months [facility] Work Phone: Start: 08-29-2011 25 hydroxy includes fractions if performed CALCIFEDIOL (55338) [facility] Work Phone: Start: 08-23-2011 Hepatic function panel HEPATIC FUNCTION PANEL (71033) [facility] Work Phone: Start: 08-23-2011 Lipid panel LIPID PANEL (20444) [facility] Work Phone: Start: 1996 Pneumococcal vaccination Pneum ococcal Vaccine (1 of 2 - PCV) [facility] Start: 1995 ANNUAL PCP TEAM PRODUCTION ADMINISTRATOR BETHANIE DISEASE VISIT ANNUAL PCP TEAM CHRONIC DISEASE VISIT [facility] Start: 1995 Anxiety Screening Anxiety Screening [facility] Start: 1995 Depression Screening Depression Scre ening [facility] Start: 1995 Hepatitis B surface antibody level LDL CHOLESTEROL [facility] Start: 1995 HEPATITIS C SCREENING HEPATITIS C [facility] Start: 1995 Hepatitis C screening Hepatitis C [facility] Start: 1995 HIV SCREENING HIV SCREENING [facility] Start: 1995 HIV screening HIV Screening [facility] Start: 1987 3 comp foot exam completed DIABETIC FOOT EXAM [facility] Start: 1987 Diabetic foot examination Diabetic Foot Exam [facility] Start: 1987 Glaucoma screening Dilated Retinal E xam [facility] Start: 1987 Hepatitis B screening URINE ALBUMIN:CREATININE RATIO [facility] Start: 1987 Hepatitis C antibody , confirmatory test DILATED RETINAL EXAM [facility] Start: 1983 PNEUMOCOCCAL (1 - PCV) PNEUMOCOCCAL (1 - PCV) [facility] Start: 1983 Pneumococcal vaccination Pneum ococcal Vaccine (1 - PCV) [facility] Start: 1982 Hemoglobin A1c measurement HbA1C [facility] Start: 1982 Hemoglobin A1c/Hemoglobin.total in Blood HBA1C [facility] Start: 1977 HEPATITIS B (1 of 3 - 3-dose series) HEPATITIS B (1 of 3 - 3-dose series) [facility] Start: 1977 Hepatitis B Vaccine (1 of 3 - 3-dose series) Hepatitis B Vaccine (1 of 3 - 3-dose series) [facility] CT BRAIN WO IVCON CT BRAIN WO IV CON Radiology Routine Cerebral hemorrhage (HCC) 03/11/2023 8:34 AM EDT [facility] Work Phone: [facility] Work [...] nternal Medicine; [facility] Work Phone: [facility] Immunizations Immunization Date Immunization Notes Care Provider Fa [facility] 02-19-2023 tetanus toxoid, reduced diphtheria toxoid, and acellular pertussis vaccine, adsorbed Joslyn Turcios MD Work Phone: [facility] 03-10-2021 COVID-Pfizer (10 MCG/0.2 ML) Tawanna Fast DO Work Phone: [facility]; [facility] Work Phone: 03-23-2020 influenza virus vaccine, unspecified formulation Joslyn Turcios MD Work Phone: [facility] Payers Date Payer Category Payer Self-pay [id number] 2014 Blue Cross Blue [facility] BLUE CARD PPO OOS [id number] 2014 Unknown 2014 Unknown [id number] 2014 Unknown [id number] 1977 Unknown [id number] Unknown [id number] Unknown [id number] Unknown [id number] Unknown [id number] Unknown [id number] Unknown [id number] Unknown [id number] Social History Date Type Detail Facility Alcohol Use: Never smoker [facility] Work Phone: Start: 02-19-2023 End: 02-20-2023 Caffeine Use [facility] Work Phone: Tobacco use: Never smoker. [facility] Work Phone: Alcohol Use: Alcohol Use: [facility] Work Phone: Tobacco use: Tobacco use: [facility]; [facility] Work Phone: Start: 02-19-2023 End: 04-21-2023 Tobacco smoking status NHIS Never smoked tobacco [facility] Start: 02-19-2023 Tobacco use and exposure Smokeless tobacco non-user [facility] Start: 02-19-2023 End: 03-23-2023 Alcohol intake Current drinker of alcohol (finding) [facility] Start: 02-19-2023 End: 02-20-2023 Tobacco use panel [facility] Adult Depression Screening Assessment 0 [facility] Start: 02-19-2023 Alcohol Comment Occasionally [facility] Start: 1977 Sex Assigned At Not on file [facility] Start: 04-21-2023 Tobacco smoking status NHIS Unknown if ever smoked [facility] Start: 1977 Sex Assigned At Male [facility] Medical Equipment Procedure Code Equipment Code Equipment [...] Quantity: 120 {Strip} Refills: 3 Ordered: 31-Jul-2013 Marliyn Arrington CMAsea Start : 31-Jul-2013 End : [...] 3:00 PM EDT Alyce Castelan RN No [facility] 02-20-2023 Are you blind, or do you have serious difficulty seeing, even when wearing glasses No 02/20/2023 3:00 PM EDT Alyce Castelan RN No [facility] 02-20-2023 Do you have serious difficulty walking or climbing stairs No 02/20/2023 3:00 PM EDT Alyce Castelan RN No [facility] 02-20-2023 Do you have difficul ty dressing or bathing No 02/20/2023 3:00 PM EDT Alyce Castelan RN No [facility] 02-20-2023 Because of a physica l, mental, or emotional condition, do you have difficulty doing errands alone such as visiting a physician's office or shopping No 02/20/2023 3:00 PM EDT Alyce Castelan RN No [facility] Mental Status Date Assessment Result Facility 02-20-2023 Because of a physica l, mental, or emotional condition, do you have serious difficulty concentrating, remembering, or making decisions No 02/20/2023 3:00 PM EDT Alyce Castelan RN No [facility] Clinical Notes 02-20-2023 to 12-06-2024 Quintin Shay PA-C - 12/06/2024 9:47 AM Marilee Kearns MA - 03/23/2023 8:57 AM Joslyn White MD - 03/23/2023 8:45 AM Marilee Kearns MA - 03/02/2023 11:13 AM EDT Note Date & Type Note Facility 12-06-2024 Note HNO ID: [id number] Author: QUINTIN SHAY PA-C Service: ? Author Type: Physician Passementerie Worker Type: Progress Notes Filed: 12/06/2024 09:53 Note [...] these instructions. Informed Consent Consent Obtained: Verbal [place] Protocol A moment to CARE was completed. [...] Shay PA-C December 06, 2024 9:47 AM [facility] 12-06-2024 History of Presen t illness Narrative [...] these instructions. Informed Consent Consent Obtained: Verbal [place] Protocol A moment to CARE was completed. [...] 2024 9:47 AM documented in this encounter [facility] 03-23-2023 Note HNO ID: [id number] Author: Joslyn Turcios MD Service: ? Author Type: Physician Type: Progress Notes Filed: 03/23/2023 9:14 AM Note Text: [facility] Established Patient Consultation No referring provider defined for this encounter. CC: Traumatic brain injury Subjective History of Present Illness: Mr. Crenshaw is a pleasant 47yo gentleman with a history of a ground-level fall hitting his head in a rock. He denies any LOC. He was seen at [facility] ED on 02/19/2023 where a head [...] of smell, but both symptoms are improving. [place] were removed 2 weeks ago. Therapy Status [...] - 32 mmol/ (more content not included)... [facility] 03-23-2023 Nurse Note 47 y/o male presents to office for a cranial hemorrhage follow up. Reports experiencing vertigo symptoms, but these are resolving. Denies headaches or blurred vision. documented in this encounter [facility] 03-23-2023 History of Presen t illness Narrative Images from the original note were not included. [facility] Established Patient Consultation No referring provider defined for this encounter. CC: Traumatic brain injury Subjective History of Present Illness: Mr. Crenshaw is a pleasant 47yo gentleman with a history of a ground-level fall hitting his head in a rock. He denies any LOC. He was seen at [facility] ED on 02/19/2023 where a head [...] No CT evidence of acute intracranial abnormalities. Stained Glass Glazier Helper: PSCB Transcribe Date/Time: Mar 14 2023 8:00A Dictated by : KEELEY QUEZADA MD This examination was interpreted and the report reviewed and electronically signed by: KEELEY QUEZADA MD on Mar 14 2023 8:08AM EST Data Review: Personal review of medical records: I reviewed the [facility] chart. Personal review of image, tracing or [...] No Change Instructions: Continue present activity Physician [id number] time was 20 minutes with > 50% [...] Straightforward Joslyn Du MD 8:33 AM 03/23/2023 [facility] documented in this encounter [facility] 03-02-2023 Nurse Note 47 y/o male presents to office for staple removal. 7 aakash noted and all removed. Pt tolerated well. No additional concerns. Will have CT completed 03/14 and will RTO for new pt apt with Dr Turcios on 03/21 as scheduled. documented in this encounter [facility] 02-21-2023 Miscellaneous Notes I called Francisco today [...] Office number provided. documented in this encounter [facility] 02-20-2023 Note HNO ID: [id number] Author: Maki Tucker RN Service: Care Management [...] 20, 2023 TIME: 2:27 PM CONTACT #: [phone] [facility] 02-20-2023 Note HNO ID: [id number] Author: Bel Sanz MD Service: Pulmonary Disease [...] stays in I (more content not included)... [facility] 02-20-2023 Note HNO ID: [id number] Author: Jv Lucas APRN.MAIL ROOM CLERK Service: Trauma Author Type: Nurse Practitioner Type: Progress Notes Filed: 02/20/2023 9:56 AM Note Text: Attestation signed by Gildardo Horton MD at 02/20/2023 1:51 PM Patient seen with trauma team today. Agree with above PRODUCTION PLANNER SCHEDULER documentation. Patient to ambulate, and may DC [...] 20, 2023 TIME: 8:35 AM Pager: See Facialist Schedule [facility] Evaluation note Diagnosis Cerebral hemorrhage (HCC)- Primary Intracerebral hemorrhage documented in this encounter [facility] note* Diagnosis Laceration of scalp, sequela- Primary documented in this encounter [facility] note* Diagnosis Cerebral hemorrhage (HCC) Intracerebral hemorrhage documented in this encounter [facility] note* Diagnosis Traumatic brain injury, without loss of consciousness, subsequent encounter- Primary Closed skull fracture with cerebral contusion with routine healing, subsequent encounter documented in this encounter [facility] note* Diagnosis Onset Date Resolution Status Diabetes mellitus type 1 chr onic Mixed hyperlipidemia chronic Obesity chronic Presence of insulin pump chr onic [facility] Work Phone: Evaluation note* Diagnosis Bilateral carpal tunnel syndrome- Primary Carpal tunnel syndrome documented in this encounter [facility]No assessment [facility]: Instructions* Name Dates Details Patient Instructions Indication:Type 1 diabetes mellitus maturity onset Start:18-Nov-2020 Instruction Type:Provider Instructions for Treatment How to Access Health Informa tion Online using Patient Portal and [employer] Apps Indication:Type 1 diabetes mellitus maturity onset Start:18-Nov-2020 Instruction Type:Patient Education Patient Instructions Indication:Mixed hyperlipidemia Start:15-Jul-2020 Instruction Type:Provider Instructions for Treatment How to Access Health Informa tion Online using Patient Portal and [employer] Apps Indication:Mixed hyperlipidemia Start:15-Jul-2020 Instruction Type:Patient Education [...] tion Online using Patient Portal and 3rd [employer] Apps Indication:[facility] Start:17-May-2021 Instruction Type:Patient Education Patient Instructions Indication:Type 1 diabetes mellitus maturity onset Start:18-Nov-2020 Instruction Type:Provider Instructions for Treatment How to Access Health Informa tion Online using Patient Portal and 3rd [employer] Apps Indication:Type 1 diabetes mellitus maturity onset Start:18-Nov-2020 Instruction Type:Patient Education Patient Instructions Indication:Mixed hyperlipidemia Start:15-Jul-2020 Instruction Type:Provider Instructions for Treatment How to Access Health Informa tion Online using Patient Portal and 3rd [employer] Apps Indication:Mixed hyperlipidemia Start:15-Jul-2020 Instruction Type:Patient Education [...] tion Online using Patient Portal and 3rd [employer] Apps Indication:[facility] Start:17-May-2021 Instruction Type:Patient Education Patient Instructions Indication:Type 1 diabetes mellitus maturity onset Start:18-Nov-2020 Instruction Type:Provider Instructions for Treatment How to Access Health Informa tion Online using Patient Portal and 3rd [employer] Apps Indication:Type 1 diabetes mellitus maturity onset Start:18-Nov-2020 Instruction Type:Patient Education Patient Instructions Indication:Mixed hyperlipidemia Start:15-Jul-2020 Instruction Type:Provider Instructions for Treatment How to Access Health Informa tion Online using Patient Portal and 3rd [employer] Apps Indication:Mixed hyperlipidemia Start:15-Jul-2020 Instruction Type:Patient Education [...] tion Online using Patient Portal and 3rd [employer] Apps Indication:Type 1 diabetes mellitus maturity onset Start:10-Sep-2021 Instruction Type:Patient Education Patient Instructions Indication:[facility] Start:17-May-2021 Instruction Type:Provider Instructions for Treatment How to Access Health Informa tion Online using Patient Portal and 3rd [employer] Apps Indication:[facility] Start:17-May-2021 Instruction Type:Patient Education Patient Instructions Indication:Type 1 diabetes mellitus maturity onset Start:18-Nov-2020 Instruction Type:Provider Instructions for Treatment How to Access Health Informa tion Online using Patient Portal and 3rd [employer] Apps Indication:Type 1 diabetes mellitus maturity onset Start:18-Nov-2020 Instruction Type:Patient Education Patient Instructions Indication:Mixed hyperlipidemia Start:15-Jul-2020 Instruction Type:Provider Instructions for Treatment How to Access Health Informa tion Online using Patient Portal and [employer]rd [employer] Apps Indication:Mixed hyperlipidemia Start:15-Jul-2020 Instruction Type:Patient Education [...] tion Online using Patient Portal and [employer]rd [employer] Apps Indication:Type 1 diabetes mellitus maturity onset Start:10-Sep-2021 Instruction Type:Patient Education Patient Instructions Indication:[facility] Start:17-May-2021 Instruction Type:Provider Instructions for Treatment How to Access Health Informa tion Online using Patient Portal and [employer]rd [employer] Apps Indication:[facility] Start:17-May-2021 Instruction Type:Patient Education Patient Instructions Indication:Type 1 diabetes mellitus maturity onset Start:18-Nov-2020 Instruction Type:Provider Instructions for Treatment How to Access Health Informa tion Online using Patient Portal and [employer]rd [employer] Apps Indication:Type 1 diabetes mellitus maturity onset Start:18-Nov-2020 Instruction Type:Patient Education Patient Instructions Indication:Mixed hyperlipidemia Start:15-Jul-2020 Instruction Type:Provider Instructions for Treatment How to Access Health Informa tion Online using Patient Portal and [employer]rd [employer] Apps Indication:Mixed hyperlipidemia Start:15-Jul-2020 Instruction Type:Patient Education [...] tion Online using Patient Portal and [employer]rd [employer] Apps Indication:BMI 33.0-33.9,adult Start:14-Jan-2022 Instruction Type:Patient Education Patient Instructions Indication:Type 1 diabetes mellitus maturity onset Start:10-Sep-2021 Instruction Type:Provider Instructions for Treatment How to Access Health Informa tion Online using Patient Portal and [employer]rd [employer] Apps Indication:Type 1 diabetes mellitus maturity onset Start:10-Sep-2021 Instruction Type:Patient Education Patient Instructions Indication:[facility] Start:17-May-2021 Instruction Type:Provider Instructions for Treatment How to Access Health Informa tion Online using Patient Portal and [employer]rd [employer] Apps Indication:[facility] Start:17-May-2021 Instruction Type:Patient Education Patient Instructions Indication:Type 1 diabetes mellitus maturity onset Start:18-Nov-2020 Instruction Type:Provider Instructions for Treatment How to Access Health Informa tion Online using Patient Portal and [employer]rd [employer] Apps Indication:Type 1 diabetes mellitus maturity onset Start:18-Nov-2020 Instruction Type:Patient Education Patient Instructions Indication:Mixed hyperlipidemia Start:15-Jul-2020 Instruction Type:Provider Instructions for Treatment How to Access Health Informa tion Online using Patient Portal and [employer]rd [employer] Apps Indication:Mixed hyperlipidemia Start:15-Jul-2020 Instruction Type:Patient Education [...] tion Online using Patient Portal and [employer]rd [employer] Apps Indication:BMI 33.0-33.9,adult Start:14-Jan-2022 Instruction Type:Patient Education Patient Instructions Indication:Type 1 diabetes mellitus maturity onset Start:10-Sep-2021 Instruction Type:Provider Instructions for Treatment How to Access Health Informa tion Online using Patient Portal and [employer]rd [employer] Apps Indication:Type 1 diabetes mellitus maturity onset Start:10-Sep-2021 Instruction Type:Patient Education Patient Instructions Indication:[facility] Start:17-May-2021 Instruction Type:Provider Instructions for Treatment How to Access Health Informa tion Online using Patient Portal and [employer]rd [employer] Apps Indication:[facility] Start:17-May-2021 Instruction Type:Patient Education Patient Instructions Indication:Type 1 diabetes mellitus maturity onset Start:18-Nov-2020 Instruction Type:Provider Instructions for Treatment How to Access Health Informa tion Online using Patient Portal and [employer]rd [employer] Apps Indication:Type 1 diabetes mellitus maturity onset Start:18-Nov-2020 Instruction Type:Patient Education Patient Instructions Indication:Mixed hyperlipidemia Start:15-Jul-2020 Instruction Type:Provider Instructions for Treatment How to Access Health Informa tion Online using Patient Portal and [employer]rd [employer] Apps Indication:Mixed hyperlipidemia Start:15-Jul-2020 Instruction Type:Patient Education [...] tion Online using Patient Portal and [employer] Apps Indication:Type 1 diabetes mellitus maturity onset Start:13-Jul-2022 Instruction Type:Patient Education Patient Instructions Indication:BMI 33.0-33.9,adult Start:14-Jan-2022 Instruction Type:Provider Instructions for Treatment How to Access Health Informa tion Online using Patient Portal and [employer]rd [employer] Apps Indication:BMI 33.0-33.9,adult Start:14-Jan-2022 Instruction Type:Patient Education Patient Instructions Indication:Type 1 diabetes mellitus maturity onset Start:10-Sep-2021 Instruction Type:Provider Instructions for Treatment How to Access Health Informa tion Online using Patient Portal and [employer]rd [employer] Apps Indication:Type 1 diabetes mellitus maturity onset Start:10-Sep-2021 Instruction Type:Patient Education Patient Instructions Indication:[facility] Start:17-May-2021 Instruction Type:Provider Instructions for Treatment How to Access Health Informa tion Online using Patient Portal and [employer]rd [employer] Apps Indication:[facility] Start:17-May-2021 Instruction Type:Patient Education Patient Instructions Indication:Type 1 diabetes mellitus maturity onset Start:18-Nov-2020 Instruction Type:Provider Instructions for Treatment How to Access Health Informa tion Online using Patient Portal and [employer]rd [employer] Apps Indication:Type 1 diabetes mellitus maturity onset Start:18-Nov-2020 Instruction Type:Patient Education Patient Instructions Indication:Mixed hyperlipidemia Start:15-Jul-2020 Instruction Type:Provider Instructions for Treatment How to Access Health Informa tion Online using Patient Portal and [employer]rd [employer] Apps Indication:Mixed hyperlipidemia Start:15-Jul-2020 Instruction Type:Patient Education [...] tion Online using Patient Portal and [employer] Apps Indication:Type 1 diabetes mellitus maturity onset Start:13-Jul-2022 Instruction Type:Patient Education Patient Instructions Indication:BMI 33.0-33.9,adult Start:14-Jan-2022 Instruction Type:Provider Instructions for Treatment How to Access Health Informa tion Online using Patient Portal and [employer]rd [employer] Apps Indication:BMI 33.0-33.9,adult Start:14-Jan-2022 Instruction Type:Patient Education Patient Instructions Indication:Type 1 diabetes mellitus maturity onset Start:10-Sep-2021 Instruction Type:Provider Instructions for Treatment How to Access Health Informa tion Online using Patient Portal and [employer]rd [employer] Apps Indication:Type 1 diabetes mellitus maturity onset Start:10-Sep-2021 Instruction Type:Patient Education Patient Instructions Indication:[facility] Start:17-May-2021 Instruction Type:Provider Instructions for Treatment How to Access Health Informa tion Online using Patient Portal and [employer]rd [employer] Apps Indication:[facility] Start:17-May-2021 Instruction Type:Patient Education Patient Instructions Indication:Type 1 diabetes mellitus maturity onset Start:18-Nov-2020 Instruction Type:Provider Instructions for Treatment How to Access Health Informa tion Online using Patient Portal and [employer] Apps Indication:Type 1 diabetes mellitus maturity onset Start:18-Nov-2020 Instruction Type:Patient Education Patient Instructions Indication:Mixed hyperlipidemia Start:15-Jul-2020 Instruction Type:Provider Instructions for Treatment How to Access Health Informa tion Online using Patient Portal and [employer]rd [employer] Apps Indication:Mixed hyperlipidemia Start:15-Jul-2020 Instruction Type:Patient Education [...] tion Online using Patient Portal and [employer] Apps Indication:Type 1 diabetes mellitus maturity onset Start:13-Jul-2022 Instruction Type:Patient Education Patient Instructions Indication:BMI 33.0-33.9,adult Start:14-Jan-2022 Instruction Type:Provider Instructions for Treatment How to Access Health Informa tion Online using Patient Portal and [employer]rd [employer] Apps Indication:BMI 33.0-33.9,adult Start:14-Jan-2022 Instruction Type:Patient Education Patient Instructions Indication:Type 1 diabetes mellitus maturity onset Start:10-Sep-2021 Instruction Type:Provider Instructions for Treatment How to Access Health Informa tion Online using Patient Portal and [employer] Apps Indication:Type 1 diabetes mellitus maturity onset Start:10-Sep-2021 Instruction Type:Patient Education Patient Instructions Indication:[facility] Start:17-May-2021 Instruction Type:Provider Instructions for Treatment How to Access Health Informa tion Online using Patient Portal and [employer]rd [employer] Apps Indication:[facility] Start:17-May-2021 Instruction Type:Patient Education Patient Instructions Indication:Type 1 diabetes mellitus maturity onset Start:18-Nov-2020 Instruction Type:Provider Instructions for Treatment How to Access Health Informa tion Online using Patient Portal and [employer]rd [employer] Apps Indication:Type 1 diabetes mellitus maturity onset Start:18-Nov-2020 Instruction Type:Patient Education Patient Instructions Indication:Mixed hyperlipidemia Start:15-Jul-2020 Instruction Type:Provider Instructions for Treatment How to Access Health Informa tion Online using Patient Portal and [employer] Apps Indication:Mixed hyperlipidemia Start:15-Jul-2020 Instruction Type:Patient Education [...] tion Online using Patient Portal and [employer] Apps Indication:Type 1 diabetes mellitus maturity onset Start:13-Jul-2022 Instruction Type:Patient Education Patient Instructions Indication:BMI 33.0-33.9,adult Start:14-Jan-2022 Instruction Type:Provider Instructions for Treatment How to Access Health Informa tion Online using Patient Portal and [employer] Apps Indication:BMI 33.0-33.9,adult Start:14-Jan-2022 Instruction Type:Patient Education Patient Instructions Indication:Type 1 diabetes mellitus maturity onset Start:10-Sep-2021 Instruction Type:Provider Instructions for Treatment How to Access Health Informa tion Online using Patient Portal and [employer] Apps Indication:Type 1 diabetes mellitus maturity onset Start:10-Sep-2021 Instruction Type:Patient Education Patient Instructions Indication:[facility] Start:17-May-2021 Instruction Type:Provider Instructions for Treatment How to Access Health Informa tion Online using Patient Portal and [employer] Apps Indication:[facility] Start:17-May-2021 Instruction Type:Patient Education Patient Instructions Indication:Type 1 diabetes mellitus maturity onset Start:18-Nov-2020 Instruction Type:Provider Instructions for Treatment How to Access Health Informa tion Online using Patient Portal and [employer]rd [employer] Apps Indication:Type 1 diabetes mellitus maturity onset Start:18-Nov-2020 Instruction Type:Patient Education Patient Instructions Indication:Mixed hyperlipidemia Start:15-Jul-2020 Instruction Type:Provider Instructions for Treatment How to Access Health Informa tion Online using Patient Portal and [employer]rd [employer] Apps Indication:Mixed hyperlipidemia Start:15-Jul-2020 Instruction Type:Patient Education [...] for referral (narrative)No reason for [facility]: Family History No Family History [...] tion Online using Patient Portal and [employer]rd [employer] Apps Indication:Mixed hyperlipidemia Start:15-Jul-2020 Instruction Type:Patient Education [...] tion Online using Patient Portal and [employer] Apps Indication:Mixed hyperlipidemia Start:15-Jul-2020 Instruction Type:Patient Education [...] tion Online using Patient Portal and [employer] Apps Indication:Mixed hyperlipidemia Start:15-Jul-2020 Instruction Type:Patient Education [...] HEAD/BRAIN W/O CONTRAST MATERIAL Joslyn Turcios MD [address] [place] [address] [place] Imaging Referral ID Status Reason Start Date Expiration Date Visits Requested Visits Authorized [id number] Pending Review Auto-Generat ed Referral 03/14/2023 03/22/2024 [...] DATE CREATED AUTHOR AUTHOR'S ORGANIZ ATION 03/14/2023 [facility] DATE CREATED AUTHOR AUTHOR'S ORGANIZ ATION 03/24/2023 [facility] DATE CREATED AUTHOR AUTHOR'S ORGANIZ ATION 12/08/2024 [facility] DATE CREATED AUTHOR AUTHOR'S ORGANIZ ATION [facility] Source Comments (unrecognize d section and content) In the event this informatio n is protected by the Federal Confidentiality of Alcohol and Drug Abuse Patient Records regulations: The Federal rules restrict any use of the information to criminally investigate or prosecute any alcohol or drug abuse patient.[facility] Center[facility] the event this information is protected by the Federal Confidentiality of Alcohol and Drug Abuse Patient Records regulations: The Federal rules restrict any use of the information to criminally investigate or prosecute any alcohol or drug abuse patient.[facility] the event this information is protected by the Federal Confidentiality of Alcohol and Drug Abuse Patient Records regulations: The Federal rules restrict any use of the information to criminally investigate or prosecute any alcohol or drug abuse patient.[facility] Center[facility] the event this information is protected by the Federal Confidentiality of Alcohol and Drug Abuse Patient Records regulations: The Federal rules restrict any use of the information to criminally investigate or prosecute any alcohol or drug abuse patient.[facility] CenterIn the event this information is protected by the Federal Confidentiality of Alcohol and Drug Abuse Patient Records regulations: The Federal rules restrict any use of the information to criminally investigate or prosecute any alcohol or drug abuse patient.[facility] CenterIn the event this information is protected by the Federal Confidentiality of Alcohol and Drug Abuse Patient Records regulations: The Federal rules restrict any use of the information to criminally investigate or prosecute any alcohol or drug abuse patient.[facility] Reason for Visit (unrecogniz ed section and content) Reason Comments Orders Reason Comments Appointment Reason Comments 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 No previous treatment Care Teams (unrecognized sec tion and content) Program Lead Relationship Specialty Start Date End Date [facility] Internal [address] [place] [id number] PCP - General 02/19/23 Program Lead Relationship Specialty Start Date End Date [facility] Internal [address] [place] [id number] PCP - General 02/19/23 Program Lead Relationship Specialty Start Date End Date [facility] Internal [address] [place] [id number] PCP - General 02/19/23 Program Lead Relationship Specialty Start Date End Date [facility] Internal [address] [place] [id number] PCP - General 02/19/23 Team Status: Active [...] MD Attending Provider, Referring Provi kayce Active Program Lead Relationship Specialty Start Date End Date Medicine, Comprehensive Internal [address] [place], [place] [id number] PCP - General 02/19/23 Team Status: Active [...] BE BASED ON THE PRIMARY CLINICAL RECORDS. [employer] provides no warranty or guarantee of the accuracy or completeness of information in this document.
[2025-06-18 17:44] LABS: Hematocrit 45.7 % (40-54); Hemoglobin 15.8 g/dL (13.0-16.5); Immature Granulocytes Count 0.030 X10^3/uL (0.0-0.0); Mean Corp Hgb Conc 34.6 g/dL (32-36); Mean Corpuscular Volume 88.9 fL (80-94); Mean Platelet Vol. 10.9 fl (6.2-12.0); NRBC Flagged by Analyzer 0 % (0-5); Platelet Count 254 K/mm3 (150-450); RBC Distribution Width CV 12.3 % (11.6-14.6); RBC Distribution Width SD 40.1 fl (35.1-43.9); Red Blood Count 5.14 M/mm3 (4.6-6.2); White Blood Count 9.8 K/mm3 (4.4-11.0)
[2025-06-18 18:11] LABS: AST(SGOT) 32 U/L (<=37); Alanine Aminotransfer ALT/SGPT 39 U/L (<=46); Albumin, Serum 4.8 g/dL (3.5-5.0); Alkaline Phosphatase 93 U/L (40-129); Anion Gap 14 (5-15); BUN 11 mg/dL (4-19); BUN/Creat Ratio 10.6 RATIO (10-20); Calcium,Total 9.6 mg/dL (7.6-11.0); Carbon Dioxide 23.5 mmol/L (21.0-32.0); Chloride 101 mmol/L (98-108); Cholesterol 140 mg/dL (<=200); Globulin 3.3 g/dL (2.2-4.2); Glucose 87 mg/dL (70-99); Low Density Lipoprotein Calc. 79 mg/dL; Potassium 4.2 mmol/L (3.3-5.1); Triglycerides 110 mg/dL; Very Low Density Lipoprotein 22 mg/dL (5-40); cholesterol:hdl ratio screen 3.41
== END | disposition home or self-care (01) ==
LOC: MTLAB 15:43
PROVIDERS: PCP Internal Medicine; Referring Provider Internal Medicine; Visit Provider Internal Medicine
DX: E78.2 Mixed hyperlipidemia (principal); E10.9 Type 1 diabetes mellitus without complications
CPT/HCPCS: 36415; 80053; 80061; 85025

== ENCOUNTER 2025-07-09 06:04 | Day surgery (SDC) | payer BC, SELFPAY ==
[2025-07-09] VITALS (8 sets, daily range): BP systolic 118–146; BP diastolic 75–88; PULSE 71–82; RESP 16; TEMP 36.3–36.8; O2SAT 95–98; BMI 31.7
--- OUTSIDE RECORDS SUMMARY | 2025-07-09 06:08 | XMS RPT_ITS | CCD ---
Author Organization [facility] Care Team Providers Care Rack Cleaner Name Role Phone Fast, Tawanna A Unavailable [facility] Unavailable Misael Swain Unavailable [place], Eun Unavailable Unavailable Carmela Henning Unavailable Unavailable Linda Dasilva Unavailable Unavailable Unavailable Unavailable SlaMarilee escamilla Unavailable Unavailable Manchak, Eun Unavailable Unavailable Esthela Briceño Unavailable Unavailable Sonia Ludwig Unavailable Kathie Harding Unavailable Unavailable Fast DO, Tawanna A Unavailable [facility] Unavailable Dr. Misael Swain DO [...] Fast DO, Dr. Stacy Referring Provider [phone] Dr. Landen Evangelista MD Attending Provider Fast, [...] 1:00am Start: 08-27-2018 take 1 capsule by [facility] once daily Vitamin D3 5000 UNIT Oral [...] : 20-Nov-2012 End : 14-Oct-2013 Inactive Insulin Furniture Technician Cart,Aut,G6/7,Cntr (Omnipod 5 G6-G7 Intro Kt(Gen5)) cartridge (1 source) Start: 11-19-2024 Insulin Furniture Technician Cart,Aut,G6/7,Cntr (Omnipod 5 G6-G7 Intro Kt(Gen5)) cartridge [...] 1 capsule by mouth every week Ergocalciferol 79549 UNIT Oral Capsule 1 Capsule q week [...] 14-Feb-2017 End : 27-Aug-2018 Inactive Comments: 3pills pqw2uath, 2 pills po x3days, 1 po x3days with food in the amverbally called in-[facility] 02/13/17 Comment on above: 3pills kfo1fmgh, 2 p ills po x3days, 1 po x3days with food in the amverbally called in-[facility] 02/13/17 take with food in am [...] about diet and ex andpotentially see a mountain or glacier guide- now seeing Landen Evangelista MD and has improving control- again discussed diet and ex in detail last a1c was 7 we talked about destini inhibitor as standard of care he will talk with his dm about it- set up mountain or glacier guide encourage compliance with diet and ex has [...] - take statin routinely great control - chromium plater bethanie stable-continue present regimen get labs he [...] [Need for prophylactic vaccination and inoculation against pscvgdzblo-keqtwst-rn rtussis, combined [DTP] [DTaP]] Resolved: 11-27-2012 11-27-2012 [...] Facility Orthopedic Visit Reporton Orthopedic Visit Report [facility] [address] [place] [address] OFFICE VISIT Date of Service: 05/09/25 MR#: [id number] Acct: [id number] Name: FRANCISCO CRENSHAW Rep #: [id number] : 1975 Provider: Dr. Troy rivero MD Age/Sex: 49/M [facility] Status: Signed Intake Vital Signs 02/28/25 07:59 [...] you fallen in the past year?: No [facility] Medical History (Updated 05/09/25 @ 08:39 by [...] tunnel syndrome. Already had the nerve studies. [facility]. [facility]. Climb around, move heavy equipment, fix high [...] Ulnar: I and Median: I Supplemental Info [facility]monary Services/Neurology [address] [place] [address] MR#: [id number] Acct: [id number] Name: FRANCISCO CRENSHAW Rep #: [id number] : 1975 49 From: Trang Sahni MD [...] bilateral up (more content not included)... Normal [facility] NCS and/or EMG Patienton NCS and/or EMG Patient [facility]/Neurology [address] [place] [address] MR#: [id number] Acct: [id number] Name: FRANCISCO CRENSHAW Rep #: [id number] : 1975 49 From: Trang Sahni MD [...] Multi Select Codes Neurology Neurology Interp Codes: 17161-38 Musc test done w/n test comp (interp) (2) and 96501-97 Nrv cndj test 9-10 studies (interp) 05/06/25 1035 Date Trang Sahni MD CC: Dr. Trang Sahni MD; Dr. Tawanna Pickard DO Date Dictated: 05/06/25850 Date Transcribed: 05/06/25850 Agency Director: Signed Normal [facility] Endocrinology Visit Reporton 02-28-2025 Endocrinology Visit Report [facility] [address] [place] [address] [address] [place] [address] OFFICE VISIT Date of Service: 02/28/25 MR#: [id number] Acct: [id number] Name: FRANCISCO CRENSHAW Rep #: [id number] : 1975 Provider: Sonya Massey Age/Sex: 49/M [facility] Status: Signed Intake Vital Signs 08/30/24 09:32 [...] Reasons: 6 M FU Chief Complaint: Diabetes Wedding Planner Required: No Accompanied by: Self Is patient [...] #9 ea 01/13/25 02/28/25 Rx Sensor device) [facility] Medical History Obesity Diabetes mellitus type 1 [...] congruent mood (more content not included)... Normal [facility] Additional Injections: L car pal [...] these instructions. Informed Consent Consent Obtained: Verbal Elsie Protocol A moment to CARE was completed. [...] equipment, possible retained foreign bodies accounted for. [facility] CNOVon 12-06-2024 CNOV Office Visit (ORTHTW ) FRANCISCO CRENSHAW ([id number]) 1975 M Date Time Provider Department 12/06/24 [...] these instructions. Informed Consent Consent Obtained: Verbal Elsie Protocol A moment to CARE was completed. [...] - Fully Assessed Reason for Visit: New [[id number]] Cmt: Symptoms of numbness and burning for several months- mainly when driving and sleeping. No previous treatment New [[id number]] Cmt: Symptoms of numbness and burning for several months- mainly when driving and s (more content not included)... Normal [facility] Endocrinology Visit Reporton 08-30-2024 Endocrinology Visit Report [facility] [address] [facility]. [address] [place], [place] [address] OFFICE VISIT Date of Service: 08/30/24 MR#: [id number] Acct: [id number] Name: FRANCISCO CRENSHAW Rep #: [id number] : 1975 Provider: Sonya Massey Age/Sex: 49/M [facility] Status: Signed Intake Vital Signs 04/19/24 08:03 [...] 11/19/20 08/30/24 Hi story Q-10) blood-glucose sensor ([employer] G7 #9 ea 02/19/24 08/30/24 Rx Sensor [...] 08/30/24 5 History subcutaneous pen injector (Mounjaro) [facility] Medical History Obesity Diabetes mellitus type 1 [...] change hi (more content not included)... Normal [facility] Basophil percentageOrdered B y: Landen Evangelista on 10-27-2023 Cholesterol [Mass/Vol] 197 mg/dL <200 [facility] Comment on above: <200 mg/dL Desirable 200-240 mg/dL Borderline >240 mg/dL High Risk Triglyceride [Mass/Vol] 642 mg/dL <199 [facility] Comment on above: The drugs [...] Cholesterol in HDL [Mass/Vol] 34 mg/dL >40 [facility] Comment on above: The drugs N-Acetylcy steine and Metamizole may falsely depress this assay. Reference Range HDL <40 mg/dL Low HDL Cholesterol HDL >or= 60 mg/dL High HDL Cholesterol Laboratory - Hematology and Cell countson 10-27-2023 HbA1c (Bld) [Mass fraction] 7.5 % 4.2-6.3 [facility] No Panel InformationOrdered By: Landen Evangelista on 10-27-2023 LDL Cholesterol [facility] Comment on above: Test not performed VLDL Cholesterol [facility] Comment on above: Test not performed CNOVon 03-23-2023 CNOV Office Visit (NMMMM) FRANCISCO CRENSHAW ([id number]) 1975 M Date Time Provider Department 03/23/23 8:45 AM JOSLYN TURCIOS During your visit today, we recorded the following information about you: Joslyn Turcios MD 03/23/2023 9:14 AM Signed [facility] Established Patient Consultation No referring provider defined for this encounter. CC: Traumatic brain injury Subjective History of Present Illness: Mr. Crenshaw is a pleasant 47yo gentleman with a history of a ground-level fall hitting his head in a rock. He denies any LOC. He was seen at [facility] ED on 02/19/2023 where a head [...] - NR (more content not included)... Normal [facility] CT BRAIN WO IVCONon 03-11-[address] BRAIN WO IVCON * * *Final Report* * * DATE OF EXAM: Mar 11 2023 8:34AM [facility] 0504 - CT BRAIN WO IVCON [...] No CT evidence of acute intracranial abnormalities. Agency Director: TRACI Transcribe Date/Time: Mar 14 2023 8:00A Dictated by : KEELEY QUEZADA MD This examination was interpreted and the report reviewed and electronically signed by: KEELEY QUEZADA MD on Mar 14 2023 8:08AM EST [id number] Normal [facility] CNNURSEon 03-02-2023 CNNURSE Nurse Visit (NMMMM) FRANCISCO CRENSHAW ([id number]) 1975 M Date Time Provider Department 03/02/23 [...] 02/20/2023 Visit Notes: >> Marilee Nails MA [facility] Mar 02, 2023 11:13 AM Status: Signed 47 y/o male presents to office for staple removal. 7 aakash noted and all removed. Pt tolerated well. No additional concerns. Will have CT completed 03/14 and will RTO for new pt apt with Dr Turcios on 03/21 as scheduled. Encounter Status:Closed by MARILEE NAILS on 03/02/23 [facility] Tele[facility] ([facility]) FRANCISCO CRENSHAW ([id number]) 1975 M Date Time Provider Department 02/23/23 JOSLYN TURCIOSWVSERA During your visit today, we recorded the [...] Encounter Status:Closed by MARILEE NAILS on 02/23/23 [facility] David 02-21-2023 [facility] Telephone ([facility]) FRANCISCO CRENSHAW ([id number]) 1975 M Date Time Provider Department 02/21/23 JOSLYN TURCIOS During your visit today, we recorded the following information about you: Allergies As of Date: 02/21/2023 (No Known Allergies) Date Reviewed: 02/20/2023 Reviewed by: Chastity Davidson RN - Fully Assessed Reason for Visit: Orders [681] Primary Visit Diagnosis:Cerebral hemorrhage (HCC) [I61.9] Order(s):CT BRAIN WO IVCON [2621083] Order #: [id number] FUTURE Prescriptions as of 02/21/2023 - acetaminophen [...] Encounter Status:Closed by MARILEE NAILS on 02/21/23 [facility] CNPN Telephone ([facility]) DEBIFRANCISCO L ([id number]) 1975 M Date Time Provider Department 02/21/23 JOSLYN TURCIOS During your visit today, we recorded the following information about you: Marilee Nails MA 02/21/2023 3:28 PM Signed I called Francisco today to have him schedule a follow up appointment from the ER. CT is scheduled for 03/14 at [place]. Needs to arrive 30 min prior apt. [...] Encounter Status:Closed by MARILEE NAILS on 02/21/23 [facility] ALLIED HEALTHon 02-20-2023 ALLIED HEALTH HNO ID: [id number] Author: Mamie Mckeon Chaplain Service: Spiritual Care Author Type: Manager Of Digital Type: Allied Health Filed: 02/20/2023 3:14 PM Note Text: SPIRITUAL CARE PROGRESS NOTE SERVICE DATE: 02/20/2023 SERVICE TIME: 2:32 pm While rounding in ICU, attempted to provide spiritual presence to patient. Patient was busy with medical staff. A supervisor green end department will follow up. To contact the Spiritual Care Department: Please call [phone]. SIGNATURE: Chaplain Sarah PATIENT NAME: Francisco Crenshaw DATE: February 20, 2023 TIME: 3:12 PM PAGER/CONTACT #: [phone] [facility] Basic metabolic 2000 panelon 02-20-2023 Anion gap [Moles/Vol] 8 mmol/L Normal 5-16 [facility] Comment on above: Order Comment: Speci men Type: BLOOD SPECIMENOrdering Facility: [facility] Address: [address] [place], [place] [phone] Performed By: #### 2 4321-2 ####[facility] LABORATORYCLIA [id number] [place] [address] [place] Calcium [Mass/Vol] 9.3 mg/dL Normal 8.5-10.5 [facility] Comment on above: Order Comment: Speci men Type: BLOOD SPECIMENOrdering Facility: [facility] Address: [address] [place], [place] [phone] Performed By: #### 2 4321-2 ####[facility] LABORATORYCLIA [id number] [place] [address] [place] Chloride [Moles/Vol] 108 mmol/L High 98-107 [facility] Comment on above: Order Comment: Speci men Type: BLOOD SPECIMENOrdering Facility: [facility] Address: [address] [address] Performed By: #### 2 4321-2 ####[facility] LABORATORYCLIA [id number] [place] [address] [place] CO2 [Moles/Vol] 24 mmol/L Normal 21-32 [facility] Comment on above: Order Comment: Speci men Type: BLOOD SPECIMENOrdering Facility: [facility] Address: [address] [address] Performed By: #### 2 4321-2 ####[facility] LABORATORYCLIA [id number] [place] [address] [place] Creatinine [Mass/Vol] 0.70 mg/dL Normal 0.50-1.40 [facility] Comment on above: Order Comment: Speci men Type: BLOOD SPECIMENOrdering Facility: [facility] Address: [address] [place] [address] Result Comment: Nanci ents receiving either N-Acetylcysteine (NAC) or Metamizole prior to venipuncture, may have falsely depressed results. Performed By: #### 2 4321-2 ####[facility] LABORATORYCLIA [id number] [address] ESTIMATED GLOMERULAR FILTRATION RATE 116 mL/min/1.73m??? Normal >=60 [facility] Comment on above: Order Comment: Speci men Type: BLOOD SPECIMENOrdering Facility: [facility] Address: [address] [place] [address] Result Comment: Taryn mated Glomerular Filtration Rate [...] actual GFR. Performed By: #### 2 4321-2 ####[facility] LABORATORYCLIA [id number] [place] [address] [place] Glucose [Mass/Vol] 164 mg/dL High 70-100 [facility] Comment on above: Order Comment: Speci men Type: BLOOD SPECIMENOrdering Facility: [facility] Address: [address] [place] [address] Result Comment: The [place] Diabetes Association (ADA) provides guidance for cutoff [...] Standards of Medical Care in Diabetes 2016, [place] [employer]. Diabetes Care. 2016.39(Suppl 1). Results may be falsely elevated after the administration of Sulfapyridine. Results may be falsely depressed after the administration of Sulfasalazine. Performed By: #### 2 4321-2 ####[facility] LABORATORYCLIA [id number] [place] [address] [place] Potassium [Moles/Vol] 4.0 mmol/L Normal 3.5-5.1 [facility] Comment on above: Order Comment: Patricia liliana Type: BLOOD SPECIMENOrdering Facility: [facility] Address: [address] [place] [address] Performed By: #### 2 4321-2 ####[facility] LABORATORYCLIA [id number] [place] [address] [place] Sodium [Moles/Vol] 140 mmol/L Normal 136-145 [facility] Comment on above: Order Comment: Patricia liliana Type: BLOOD SPECIMENOrdering Facility: [facility] Address: [address] [place] [address] Performed By: #### 2 4321-2 ####[facility] LABORATORYCLIA [id number] [place] [address] [place] Urea nitrogen [Mass/Vol] 9 mg/dL Normal 7-26 [facility] Comment on above: Order Comment: Speci men Type: BLOOD SPECIMENOrdering Facility: [facility] Address: [address] [address] Performed By: #### 2 4321-2 ####[facility] LABORATORYCLIA [id number] [place] [address] [place] Anion gap [Moles/Vol] 9 mmol/L Normal 5-16 [facility] Comment on above: Order Comment: Speci men Type: BLOOD SPECIMEN [facility] Address: [address] [address] Performed By: #### 2 4321-2 #### [facility] CLIA [id number] [address] [place] [address] [place] Calcium [Mass/Vol] 9.8 mg/dL Normal 8.5-10.5 [facility] Comment on above: Order Comment: Speci men Type: BLOOD SPECIMEN [facility] Address: [address] Performed By: #### 2 4321-2 #### [facility] CLIA [id number] [address] [place] [address] [place] Chloride [Moles/Vol] 104 mmol/L Normal 98-107 [facility] Comment on above: Order Comment: Speci men Type: BLOOD SPECIMEN [facility] Address: [address] Performed By: #### 2 4321-2 #### [facility] CLIA [id number] [address] [place], [place] [address] [place] CO2 [Moles/Vol] 25 mmol/L Normal 21-32 [facility] Comment on above: Order Comment: Speci men Type: BLOOD SPECIMEN [facility] Address: [address] Performed By: #### 2 4321-2 #### [facility] CLIA [id number] [address] [place] [address] [place] Creatinine [Mass/Vol] 0.80 mg/dL Normal 0.50-1.40 [facility] Comment on above: Order Comment: Patricia ford Type: BLOOD SPECIMEN [facility] Address: [address] [phone] Result Comment: Nanci ents receiving either N-Acetylcysteine (NAC) or Metamizole prior to venipuncture, may have falsely depressed results. Performed By: #### 2 4321-2 #### [facility] CLIA [id number] [address] [place] [address] [place] ESTIMATED GLOMERULAR FILTRATION RATE 111 mL/min/1.73m??? Normal >=60 [facility] Comment on above: Order Comment: Patricia ford Type: BLOOD SPECIMEN [facility] Address: [address] [place] [address] Result Comment: Taryn mated Glomerular Filtration Rate [...] GFR. Performed By: #### 2 4321-2 #### [facility] CLIA [id number] [address] [place] [address] [place] Glucose [Mass/Vol] 195 mg/dL High 70-100 [facility] Comment on above: Order Comment: Patricia ford Type: BLOOD SPECIMEN [facility] Address: [address] [place], [place] [phone] Result Comment: The [place] Diabetes Association (ADA) provides guidance for cutoff [...] Standards of Medical Care in Diabetes 2016, [place] [employer]. Diabetes Care. 2016.39(Suppl 1). Results may be falsely elevated after the administration of Sulfapyridine. Results may be falsely depressed after the administration of Sulfasalazine. Performed By: #### 2 4321-2 #### [facility] CLIA [id number] [address] [place] [address] [place] Potassium [Moles/Vol] Normal [facility] Comment on above: Order Comment: Patricia ford Type: BLOOD SPECIMEN [facility] Address: [address] [place] [address] Result Comment: Unab le to assay due to interference from hemolysis. Suggest reorder as clinically indicated. Genia Woods RN Performed By: #### 2 4321-2 #### [facility] CLIA [id number] [address] [place] [address] [place] Sodium [Moles/Vol] 138 mmol/L Normal 136-145 [facility] Comment on above: Order Comment: Patricia ford Type: BLOOD SPECIMEN [facility] Address: [address] [place] [address] Performed By: #### 2 4321-2 #### [facility] CLIA [id number] [address] [place] [address] [place] Urea nitrogen [Mass/Vol] 11 mg/dL Normal 7-26 [facility] Comment on above: Order Comment: Patricia ford Type: BLOOD SPECIMEN [facility] Address: [address] [place] [address] Performed By: #### 2 4321-2 #### [facility] CLIA [id number] [address] [place] [address] [place] CBC W Auto Differential pane l (Bld)on 02-20-2023 Basophils (Bld) [#/Vol] 0.05 10*3/uL Normal <0.11 [facility] Comment on above: Order Comment: Speci men Type: BLOOD SPECIMEN [facility] Address: [address] [address] Performed By: #### 5 7021-8 #### [facility] CLIA [id number] [address] [place] [address] [place] Basophils/100 WBC (Bld) 0.3 % Normal [facility] Comment on above: Order Comment: Speci men Type: BLOOD SPECIMEN [facility] Address: [address] [address] Performed By: #### 5 7021-8 #### [facility] CLIA [id number] [address] [place] [address] OF AUDIE Differential cell count method Nom (Bld) Auto Normal [facility] Comment on above: Order Comment: Speci men Type: BLOOD SPECIMEN [facility] Address: [address] [address] Performed By: #### 5 7021-8 #### [facility] CLIA [id number] [address] [place] [address] [place] Eosinophils (Bld) [#/Vol] 0.06 10*3/uL Normal <0.46 [facility] Comment on above: Order Comment: Speci men Type: BLOOD SPECIMEN [facility] Address: [address] [address] Performed By: #### 5 7021-8 #### [facility] CLIA [id number] [address] [place] [address] [place] Eosinophils/100 WBC (Bld) 0.4 % Normal [facility] Comment on above: Order Comment: Speci men Type: BLOOD SPECIMEN [facility] Address: [address] [address] Performed By: #### 5 7021-8 #### [facility] CLIA [id number] [address] [place] [address] [place] Erythrocyte distribution width (RBC) [Ratio] 12.5 % Normal 11.5-15.0 [facility] Comment on above: Order Comment: Speci men Type: BLOOD SPECIMEN [facility] Address: [address] [address] Performed By: #### 5 7021-8 #### [facility] CLIA [id number] [address] [place] [address] [place] Hematocrit (Bld) [Volume fraction] 43.1 % Normal 39.0-51.0 [facility] Comment on above: Order Comment: Speci men Type: BLOOD SPECIMEN [facility] Address: [address] [address] Performed By: #### 5 7021-8 #### [facility] CLIA [id number] [address] [place] [address] [place] Hemoglobin (Bld) [Mass/Vol] 15.3 g/dL Normal 13.0-17.0 [facility] Comment on above: Order Comment: Speci men Type: BLOOD SPECIMEN [facility] Address: [address] [address] Performed By: #### 5 7021-8 #### [facility] CLIA [id number] [address] [place] [address] [place] Immature granulocytes (Bld) [#/Vol] 0.07 10*3/uL Normal <0.10 [facility] Comment on above: Order Comment: Speci men Type: BLOOD SPECIMEN [facility] Address: [address] [address] Performed By: #### 5 7021-8 #### [facility] CLIA [id number] [address] [place] [address] [place] Immature granulocytes/100 WBC (Bld) 0.5 % Normal [facility] Comment on above: Order Comment: Speci men Type: BLOOD SPECIMEN Ordering Facility: [facility] Address: [address] [address] Performed By: #### 5 7021-8 #### [facility] CLIA [id number] [address] [place] [address] [place] Lymphocytes (Bld) [#/Vol] 1.59 10*3/uL Normal 1.00-4.00 [facility] Comment on above: Order Comment: Speci men Type: BLOOD SPECIMEN Ordering Facility: [facility] Address: [address] [place] [address] Performed By: #### 5 7021-8 #### [facility] CLIA [id number] [address] [place] [address] OF [place] Lymphocytes/100 WBC (Bld) 11.1 % Normal [facility] Comment on above: Order Comment: Speci men Type: BLOOD SPECIMEN Ordering Facility: [facility] Address: [address] [place] [address] Performed By: #### 5 7021-8 #### [facility] CLIA [id number] [address] [place] [address] [place] MCH (RBC) [Entitic mass] 31.2 pg Normal 26.0-34.0 [facility] Comment on above: Order Comment: Speci men Type: BLOOD SPECIMEN Ordering Facility: [facility] Address: [address] [place] [address] Performed By: #### 5 7021-8 #### [facility] CLIA [id number] [address] [place] [address] [place] MCHC (RBC) [Mass/Vol] 35.5 g/dL Normal 30.5-36.0 [facility] Comment on above: Order Comment: Speci men Type: BLOOD SPECIMEN Ordering Facility: [facility] Address: [address] [place] [address] Performed By: #### 5 7021-8 #### [facility] CLIA [id number] [address] [place] [address] [place] MCV (RBC) [Entitic vol] 87.8 fL Normal 80.0-100.0 [facility] Comment on above: Order Comment: Speci men Type: BLOOD SPECIMEN Ordering Facility: [facility] Address: [address] [address] Performed By: #### 5 7021-8 #### [facility] CLIA [id number] [address] [place] [address] [place] Monocytes (Bld) [#/Vol] 0.64 10*3/uL Normal <0.87 [facility] Comment on above: Order Comment: Speci men Type: BLOOD SPECIMEN Ordering Facility: [facility] Address: [address] [address] Performed By: #### 5 7021-8 #### [facility] CLIA [id number] [address] [place] [address] [place] Monocytes/100 WBC (Bld) 4.5 % Normal [facility] Comment on above: Order Comment: Speci men Type: BLOOD SPECIMEN Ordering Facility: [facility] Address: [address] [address] Performed By: #### 5 7021-8 #### [facility] CLIA [id number] [address] [place] [address] [place] Neutrophils (Bld) [#/Vol] 11.92 10*3/uL High 1.45-7.50 [facility] Comment on above: Order Comment: Speci men Type: BLOOD SPECIMEN Ordering Facility: [facility] Address: [address] [address] Performed By: #### 5 7021-8 #### [facility] CLIA [id number] [address] [place] [address] [place] Neutrophils/100 WBC (Bld) 83.2 % Normal [facility] Comment on above: Order Comment: Speci men Type: BLOOD SPECIMEN Ordering Facility: [facility] Address: [address] [address] Performed By: #### 5 7021-8 #### [facility] CLIA [id number] [address] [place] [address] [place] Nucleated RBC (Bld) [#/Vol] 10*3/uL Normal <0.01 [facility] Comment on above: Order Comment: Speci men Type: BLOOD SPECIMEN Ordering Facility: [facility] Address: [address] [address] Performed By: #### 5 7021-8 #### [facility] CLIA [id number] [address] [place] [address] [place] Nucleated RBC/100 WBC (Bld) [Ratio] 0.0 /100 WBC Normal [facility] Comment on above: Order Comment: Speci men Type: BLOOD SPECIMEN Ordering Facility: [facility] Address: [address] [address] Performed By: #### 5 7021-8 #### [facility] CLIA [id number] [address] [place] [address] [place] Platelet mean volume (Bld) [Entitic vol] 10.4 fL Normal 9.0-12.7 [facility] Comment on above: Order Comment: Speci men Type: BLOOD SPECIMEN Ordering Facility: [facility] Address: [address] [address] Performed By: #### 5 7021-8 #### [facility] CLIA [id number] [address] [place] [address] [place] Platelets (Bld) [#/Vol] 278 10*3/uL Normal 150-400 [facility] Comment on above: Order Comment: Speci men Type: BLOOD SPECIMEN Ordering Facility: [facility] Address: [address] Performed By: #### 5 7021-8 #### [facility] CLIA [id number] [address] [place] [address] [place] RBC (Bld) [#/Vol] 4.91 10*6/uL Normal 4.20-6.00 [facility] Comment on above: Order Comment: Speci men Type: BLOOD SPECIMEN Ordering Facility: [facility] Address: [address] [place] [address] Performed By: #### 5 7021-8 #### [facility] CLIA [id number] [address] [place] [address] [place] [facility] OF [place]UDIE WBC (Bld) [#/Vol] 14.33 10*3/uL High 3.70-11.00 [facility] Comment on above: Order Comment: Speci men Type: BLOOD SPECIMEN Ordering Facility: [facility] Address: [address] Performed By: #### 5 7021-8 #### [facility] CLIA [id number] [address] [place] [address] CBC panel Auto (Bld)on 02-20 Erythrocyte distribution width (RBC) [Ratio] 12.6 % Normal 11.5-15.0 [facility] Comment on above: Order Comment: Speci men Type: BLOOD SPECIMENOrdering Facility: [facility] Address: [address] [address] Performed By: #### 5 8410-2 ####[facility] [id number] [address] Hematocrit (Bld) [Volume fraction] 43.3 % Normal 39.0-51.0 [facility] Comment on above: Order Comment: Speci men Type: BLOOD SPECIMENOrdering Facility: [facility] Address: [address] Performed By: #### 5 8410-2 ####[facility]ORYCLIA [id number] [address] OF [facility] Hemoglobin (Bld) [Mass/Vol] 15.1 g/dL Normal 13.0-17.0 [facility] Comment on above: Order Comment: Speci men Type: BLOOD SPECIMENOrdering Facility: [facility] Address: [address] [address] Performed By: #### 5 8410-2 ####[facility]ORYCLIA [id number] [address] [place] MCH (RBC) [Entitic mass] 30.8 pg Normal 26.0-34.0 [facility] Comment on above: Order Comment: Speci men Type: BLOOD SPECIMENOrdering Facility: [facility] Address: [address] [place] [address] Performed By: #### 5 8410-2 ####[facility]ORY[facility]IA [id number] [address] OF [place]UD[place] MCHC (RBC) [Mass/Vol] 34.9 g/dL Normal 30.5-36.0 [facility] Comment on above: Order Comment: Speci men Type: BLOOD SPECIMENOrdering Facility: [facility] Address: [address] [place] [address] Performed By: #### 5 8410-2 ####[facility]ORYCLIA [id number] [address] OF [facility] MCV (RBC) [Entitic vol] 88.4 fL Normal 80.0-100.0 [facility] Comment on above: Order Comment: Speci men Type: BLOOD SPECIMENOrdering Facility: [facility] Address: [address] [place] [address] Performed By: #### 5 8410-2 ####[facility]ORYCLIA [id number] [address] Nucleated RBC (Bld) [#/Vol] 10*3/uL Normal <0.01 [facility] Comment on above: Order Comment: Speci men Type: BLOOD SPECIMENOrdering Facility: [facility] Address: [address] [place] [address] Performed By: #### 5 8410-2 ####[facility]ORYCLIA [id number] [address] Platelet mean volume (Bld) [Entitic vol] 10.4 fL Normal 9.0-12.7 [facility] Comment on above: Order Comment: Speci men Type: BLOOD SPECIMENOrdering Facility: [facility] Address: [address] [address] Performed By: #### 5 8410-2 ####[facility]ORYCLIA [id number] [address] [id number] [facility] OF AUDIE Platelets (Bld) [#/Vol] 248 10*3/uL Normal 150-400 [facility] Comment on above: Order Comment: Speci men Type: BLOOD SPECIMENOrdering Facility: [facility] Address: [address] [address] Performed By: #### 5 8410-2 ####[facility]ORYCLIA [id number] [place] [address] [facility] OF AUDIE RBC (Bld) [#/Vol] 4.90 10*6/uL Normal 4.20-6.00 [facility] Comment on above: Order Comment: Speci men Type: BLOOD SPECIMENOrdering Facility: [facility] Address: [address] [address] Performed By: #### 5 8410-2 ####[facility]ORYCLIA [id number] [address] OF [place] WBC (Bld) [#/Vol] 14.74 10*3/uL High 3.70-11.00 [facility] Comment on above: Order Comment: Speci men Type: BLOOD SPECIMENOrdering Facility: [facility] Address: [address] [address] Performed By: #### 5 8410-2 ####[facility]ORYCLIA [id number] [address] CNDSon 02-20-2023 CNDS HNO ID: [id number] Author: Jv Lucas APRN.COMPUTER ANIMATOR Service: Trauma Author Type: Nurse Practitioner Type: Discharge Summary Filed: 02/20/2023 2:23 PM Note Text: Attestation signed by Gildardo Horton MD at 02/20/2023 3:20 PM Agree with MONKEY BREEDER documentation. DC with outpatient followup for staple [...] male who presented to the ER from [facility] after sustaining a head injury. The patient [...] his drove approximately 45 minutes back to [place] where he was evaluated at [facility]. At the [facility], he was found to have worsening headache with nausea AND vomiting therefore he was sent to [facility] for further work-up. In the ER, he had his laceration repaired with aakash. [place] need removed in [address] revealed [...] mg tablet (more content not included)... Normal [facility] CONSULTon 02-20-2023 CONSULT HNO ID: [id number] Author: Marcos Vazquez APRN.COMPUTER ANIMATOR Service: Neurosurgery Author Type: Nurse Practitioner Type: [...] 47 year old male who presents to [facility] ED s/p fall while at [facility]. He was with his when he [...] and POC discussed with Dr. Cervantes, trauma COMPUTER ANIMATOR, RN, and at bedside PAST MEDICAL HISTORY: [...] peripheral puls (more content not included)... Normal [facility] CONSULT HNO ID: [id number] Author: Arnold Ponce APRN.CNP Service: Critical Care Author Type: Nurse Practitioner Type: Consults Filed: 02/20/2023 2:05 AM Note Text: [facility] SERVICE DATE: February 19, 2023 SERVICE TIME: 2344 Consulting Doctor: Dr. Marquise MD CHIEF COMPLAINT: Mechanical Fall ; Bifrontal/Bitemporal Hemorrhagic Contusions HPI: This is a 47-year-old male w/t a PMHx significant for DM Type-I (on insulin pump) and HTN who presents from [facility] this evening w/t complaints of a fall w/t injury to his head. Reportedly, [place] around [facility] with his . The patient states [...] his drove approximately 45 minutes back to [place] where he was evaluated at [facility]. At the [facility], he was found to have worsening headache with nausea AND vomiting therefore he was sent to [facility] for further work-up. In the ED, patient [...] scalp lacer (more content not included)... Normal [facility] CT BRAIN WO IVCONon 02-21-20 CT BRAIN WO IVCON * * *Final Report* * * DATE OF EXAM: Feb 20 2023 6:05AM [facility] 0504 - CT BRAIN WO IVCON / [...] base and imaged soft tissues are unremarkable. Industrial Commercial Groundskeeper (topogram) images: No additional findings. IMPRESSION: Stable trace bilateral subarachnoid hemorrhage as above. 2 previously described bifrontal and bitemporal contusions are less conspicuously seen compared to prior. No new acute finding. Agency Director: TRACI Transcribe Date/Time: Feb 20 2023 7:11A Dictated by : SAI GRAVES MD This examination was interpreted and the report reviewed and electronically signed by: SAI GRAVES MD on Feb 20 2023 7:15AM EST [id number] [facility] CT BRAIN WO IVCON * * *Final Report* * * DATE OF EXAM: Feb 19 2023 11:14PM [facility] 0504 - CT BRAIN WO IVCON / [...] grossly clear. Subtle nondepressed right occipital fracture Industrial Commercial Groundskeeper (topogram) images: Unremarkable. IMPRESSION: Findings compatible with traumatic bifrontal and bitemporal hemorrhagic contusions with trace associated subarachnoid blood. No significant mass effect. Nondepressed right occipital fracture URGENT RESULTS Acuity: Urgent Communication: Communicated with NILSON on 02/19/2023 11:25 PM via verbal communication. Agency Director: TRACI Transcribe Date/Time: Feb 19 2023 11:18P Dictated by : BEBETO RAI MD This examination was interpreted and the report reviewed and electronically signed by: BEBETO RAI MD on Feb 19 2023 11:27PM EST [id number] [facility] CT CERVICAL SPINE WO IVCONon 02-20-2023 CT CERVICAL SPINE WO IVCON * * *Final Report* * * DATE OF EXAM: Feb 19 2023 11:14PM [facility] 0505 - CT CERVICAL SPINE WO IVCON [...] Counting reference: Craniocervical junction. Anatomic Variants: None. Industrial Commercial Groundskeeper (topogram) images: No additional findings. Alignment: Alignment [...] vertebrae with counting from the craniocervical junction. Agency Director: TRACI Transcribe Date/Time: Feb 19 2023 11:25P Dictated by : PETRONA OSUNA MD This examination was interpreted and the report reviewed and electronically signed by: PETRONA OSUNA MD on Feb 19 2023 11:30PM EST [id number] [facility] ED NOTEon 02-20-2023 ED NOTE HNO ID: [id number] Author: Augustine, Inderjit, RN Service: Nursing Author Type: Registered Nurse Type: ED Notes Filed: 02/20/2023 12:50 AM Note Text: Transported to ICU by this RN and [place] Supervisor [place] Department on monitor with follow ing. [facility] ED NOTE HNO ID: [id number] Author: Inderjit Bradshaw RN Service: Nursing Author Type: Registered Nurse Type: ED Notes Filed: 02/20/2023 12:50 AM Note Text: Report to Chastity in MANAGER ATHLETICS. Eric w/neisha Khan/Allan. Speech clear. Equal grasps. Pupils equal round reactive to light 5mm. AZAR 5/10 with photosensitivity. Normal [facility] ED PROV NOTEon 02-20-2023 ED PROV NOTE HNO ID: [id number] Author: Masha Mckenzie PA-C Service: Emergency Medicine Author Type: Physician Order Detailer Type: ED Provider Notes Filed: 02/20/2023 12:24 [...] on 02/19/2023 11:25 PM via verbal communication. Agency Director: TRACI Transcribe Date/Time: Feb 19 2023 11:18P [...] vertebrae with counting from the craniocervical junction. Agency Director: TRACI Transcribe Date/Time: Feb 19 2023 11:25P [...] 5:30 PM he had been up at [facility], walking along a brick wall when [...] of this (more content not included)... Normal [facility] HISTORY PHYSICALon 3 HISTORY PHYSICAL HNO ID: [id number] Author: Radha Camarillo MD Service: General Surgery [...] to open ambulate afterwards. He drove from [facility] to [facility] ( approximately 45-[address] drive). Patient developed significant worsening headache while at [facility] and had nausea and emesis. Facility did not have CT scan available and he was sent to [facility] ED for further work-up. His work-up [...] COVID-19 original vaccine, age 12+ yr, monovalent ([employer] - PURPLE TOP) 03/05/2021 05/28/2021 tetanus diphtheria [...] on 02/19/2023 11:25 PM via verbal communication. Agency Director: TRACI Transcribe Date/Time: Feb 19 2023 11:18P [...] vertebrae with counting from the craniocervical junction. Agency Director: TRACI Transcribe Date/Time: Feb 19 2023 11:25P [...] 02/19/23 2227 CR (more content not included)... [facility] CNOVon 02-19-2023 CNOV Office Visit (UCMNCA ) FRANCISCO CRENSHAW ([id number]) 1975 M Date Time Provider Department 02/19/23 7:40 PM THAD NANCE [facility] During your visit today, we recorded the [...] Due to Head Injury (Fell today at [facility]. States slipped on a rock and [...] subscore is 6. Coordination: Romberg sign positive. Qnwzdp-Ozyb-Asgcuj Test abnormal. Gait: Gait abnormal. ASSESSMENT/PLAN: 1. [...] Head Injury [Other] Cmt: Fell today at [facility]. States slipped on a rock and [...] Encounter Status:Closed by THAD NANCE on 02/19/23 [facility] ED NOTEon 02-19-2023 ED NOTE HNO ID: [id number] Author: Odette Tavarez, KADEN Service: ? Author Type: Registered Nurse Type: ED Notes Filed: 02/19/2023 9:35 PM Note Text: Pt unable to tolerate C collar, Nilson HOYT notified. [facility] ED Triage Noteon 02-19-2023 ED Triage Note HNO ID: [id number] Author: Parth Devine PA-C Service: ? Author Type: Physician Order Detailer Type: ED Triage Notes Filed: 02/19/2023 9:19 [...] IV Zofran, tetanus SIGNATURE: Parth Devine PA-C [facility] HISTORY PHYSICALon HISTORY PHYSICAL HNO ID: [id number] Author: Thad Nance APRN.CNP Service: ? Author Type: Nurse Practitioner Type: HANDP Filed: 02/19/2023 8:36 PM Note Text: Francisco Crenshaw is a 47 year old male who presents with Laceration to the Head Due to Head Injury (Fell today at [facility]. States slipped on a rock and [...] subscore is 6. Coordination: Romberg sign positive. Xzjize-Ukwf-Mllkuj Test abnormal. Gait: Gait abnormal. ASSESSMENT/PLAN: 1. [...] drive her to the ER. Thad Nance [facility] CBC W/AUTO DIFF WBC ([id number] rdered By: Duplicator Punch Operator on 10-07-2022 Basophils (Bld) [#/Vol] 0.1 10*3/uL Normal 0.0-0.2 [facility]; [facility] Work Phone: Comment on above: PATIENT WAS FASTINGP ERFORMED BY: [employer] Secure HostingCarolinas ContinueCARE Hospital at Pine[facility] [id number] BY: UCROO[address] [id number] Basophils/100 WBC (Bld) 1 % Normal [facility]; [facility] Work Phone: Comment on above: PATIENT WAS FASTINGP ERFORMED BY: [employer] Radient PharmaceuticalsCarolinas ContinueCARE Hospital [facility] [id number] BY: UCROO[address] [id number] Eosinophils (Bld) [#/Vol] 0.4 10*3/uL Normal 0.0-0.4 [facility]; [facility] Work Phone: Comment on above: PATIENT WAS FASTINGP ERFORMED BY: [employer]70 [facility]nerUniversity [facility] Hospital [id number] BY: Lancope[address] [id number] Eosinophils/100 WBC (Bld) 5 % Normal [facility]; [facility] Work Phone: Comment on above: PATIENT WAS FASTINGP ERFORMED BY: [employer] Fygtvx9452 [employer] Radient PharmaceuticalsCarolinas ContinueC[facility] [id number] BY: UCROO[address] [id number] Erythrocyte distribution width (RBC) [Ratio] 13.1 % Normal 11.6-15.4 [facility]; [facility] Work Phone: Comment on above: PATIENT WAS FASTINGP ERFORMED BY: FERN [facility] Mszmgx5331 [facility] [id number] BY: [address] [id number] Hematocrit (Bld) [Volume fraction] 45.8 % Normal 37.5-51.0 [facility]; [facility] Work Phone: Comment on above: PATIENT WAS FASTINGP ERFORMED BY: FERN [employer] Qtdhck1780 [facility] [id number] BY: [address] [id number] Hemoglobin (Bld) [Mass/Vol] 15.8 g/dL Normal 13.0-17.7 [facility]; [facility] Work Phone: Comment on above: PATIENT WAS FASTINGP ERFORMED BY: FERN [employer] Kkhfyv6966 [facility] [id number] BY: [address] [id number] Immature granulocytes (Bld) [#/Vol] 0.0 10*3/uL Normal 0.0-0.1 [facility]; [facility] Work Phone: Comment on above: PATIENT WAS FASTINGP ERFORMED BY: [facility] Mykkhe6071 [facility] [id number] BY: [address] [id number] Immature granulocytes/100 WBC (Bld) 1 % Normal [facility]; [facility] Work Phone: Comment on above: PATIENT WAS FASTINGP ERFORMED BY: FERN [facility] [id number] [facility] [id number] BY: Lancope[address] [id number] Lymphocytes (Bld) [#/Vol] 2.7 10*3/uL Normal 0.7-3.1 [facility]; [facility] Work Phone: Comment on above: PATIENT WAS FASTINGP ERFORMED BY: LabcoNewton Medical CenterZvnwns2070 [facility] [id number] BY: Lab[address] [id number] Lymphocytes/100 WBC (Bld) 31 % Normal [facility]; [facility] Work Phone: Comment on above: PATIENT WAS FASTINGP ERFORMED BY: [facility] Dhonuw3853 [facility] [id number] BY: [address] [id number] MCH (RBC) [Entitic mass] 31.5 pg Normal 26.6-33.0 [facility]; [facility] Work Phone: Comment on above: PATIENT WAS FASTINGP ERFORMED BY: FERN Labsaint [facility] Cdkcue3941 [facility] [id number] BY: [address] [id number] MCHC (RBC) [Mass/Vol] 34.5 g/dL Normal 31.5-35.7 [facility] prehensive [facility]; [facility] Work Phone: Comment on above: PATIENT WAS FASTINGP ERFORMED BY: [facility] Szqddq0743 [facility] [id number] BY: [address] [id number] MCV (RBC) [Entitic vol] 91 fL Normal 79-97 [facility]; [facility] Work Phone: Comment on above: PATIENT WAS FASTINGP ERFORMED BY: [facility] Brvfug9892 [facility] [id number] BY: BN Labco[address] [id number] Monocytes (Bld) [#/Vol] 0.8 10*3/uL Normal 0.1-0.9 [facility]; [facility] Work Phone: Comment on above: PATIENT WAS FASTINGP ERFORMED BY: FERN [facility] Dcrnet6263 Joyner RoadDublin [place] [id number] BY: [facility] [address] [id number] Monocytes/100 WBC (Bld) 9 % Normal [facility]; [facility] Work Phone: Comment on above: PATIENT WAS FASTINGP ERFORMED BY: FERN [facility] Cdrhze4029 [facility] [id number] BY: [facility] [address] [id number] Neutrophils (Bld) [#/Vol] 4.6 10*3/uL Normal 1.4-7.0 [facility]; [facility] Work Phone: Comment on above: PATIENT WAS FASTINGP ERFORMED BY: FERN [facility] Nqwyji5501 [facility] [id number] BY: [facility] [address] [id number] Neutrophils/100 WBC (Bld) 53 % Normal [facility]; [facility] Work Phone: Comment on above: PATIENT WAS FASTINGP ERFORMED BY: CB [facility] Bixucr2774 [facility] RoadCarolinas ContinueCARE Hospital [facility] [id number] BY: [facility] [address] [id number] Platelets (Bld) [#/Vol] 272 10*3/uL Normal 150-450 [facility]; [facility] Work Phone: Comment on above: PATIENT WAS FASTINGP ERFORMED BY: CB [facility] Nhbeht3733 [facility] [id number] BY: [facility] [address] [id number] RBC (Bld) [#/Vol] 5.01 10*6/uL Normal 4.14-5.80 [facility] Internal Medicine; [facility] Work Phone: Comment on above: PATIENT WAS FASTINGP ERFORMED BY: FERN [facility] Swkunl3598 [facility] [id number] BY: [address] [id number] WBC (Bld) [#/Vol] 8.6 10*3/uL Normal 3.4-10.8 [facility] Internal Medicine; [facility] Work Phone: Comment on above: PATIENT WAS FASTINGP ERFORMED BY: FERN [facility] Gitekf9518 [facility] [id number] BY: [address] [id number] METABOLIC PANEL, COMPREHENSI VE (71953)Ordered By: Duplicator Punch Operator on 10-07-2022 Albumin [Mass/Vol] 4.6 g/dL Normal 4.0-5.0 [facility]; [facility] Work Phone: Comment on above: PATIENT WAS FASTINGP ERFORMED BY: FERN [facility] Flcwpx3580 [facility] [id number] BY: [address] [id number] Albumin/Globulin [Mass ratio] 1.8 {ratio} Normal 1.2-2.2 [facility]; [facility] Work Phone: Comment on above: PATIENT WAS FASTINGP ERFORMED BY: [facility] Mbfrpj4502 [facility] [id number] BY: [address] [id number] ALP [Catalytic activity/Vol] 110 U/L Normal 44-121 [facility]; [facility] Work Phone: Comment on above: PATIENT WAS FASTINGP ERFORMED BY: [facility] Yocjbg5381 [facility] [place] [id number] BY: [address] [id number] ALT [Catalytic activity/Vol] 68 U/L Abnormal 0-44 [facility]; [facility] Work Phone: Comment on above: PATIENT WAS FASTINGP ERFORMED BY: [facility] Bokitp3168 [facility] RoadCarolinas ContinueCARE Hospital [facility] [id number] BY: [address] [id number] AST [Catalytic activity/Vol] 42 U/L Abnormal 0-40 [facility]; [facility] Work Phone: Comment on above: PATIENT WAS FASTINGP ERFORMED BY: [facility] Mszina9762 [place] RoadCarolinas ContinueCARE Hospital at [facility] [id number] BY: [address] [id number] Bilirubin [Mass/Vol] 0.3 mg/dL Normal 0.0-1.2 Comp rehensive Internal Medicine; [facility] Work Phone: Comment on above: PATIENT WAS FASTINGP ERFORMED BY: [facility] Uiskjz4530 [facility] [id number] BY: [address] [id number] Calcium [Mass/Vol] 9.6 mg/dL Normal 8.7-10.2 [facility] Internal [facility]; [facility] Work Phone: Comment on above: PATIENT WAS FASTINGP ERFORMED BY: [facility] Zpluef8410 [facility] [id number] BY: [address] [id number] Chloride [Moles/Vol] 101 mmol/L Normal 96-106 Comp rehensive Internal Medicine; [facility] Work Phone: Comment on above: PATIENT WAS FASTINGP ERFORMED BY: [facility] Wbetrm9103 [facility] [id number] BY: [facility] [address] [id number] CO2 [Moles/Vol] 22 mmol/L Normal 20-29 [facility]; [facility] Work Phone: Comment on above: PATIENT WAS FASTINGP ERFORMED BY: FERN [facility] Ekfblp5665 [facility] [id number] BY: [facility] [address] [id number] Creatinine [Mass/Vol] 0.88 mg/dL Normal 0.76-1.27 [facility] prehensive Internal Medicine; [facility] Work Phone: Comment on above: PATIENT WAS FASTINGP ERFORMED BY: FERN [facility] Rkuheb7699 [facility] [id number] BY: LabMdotLabs[address] [id number] GFR/1.73 sq M.predicted among non-blacks MDRD (S/P/Bld) [Vol rate/Area] 108 mL/min/{1.73_m2} Normal Comprehensi ve Internal Medicine; [facility] Work Phone: Comment on above: PATIENT WAS FASTINGP ERFORMED BY: FERN [facility] Kavmtz5428 [facility] [id number] BY: Labco[address] [id number] Globulin (S) [Mass/Vol] 2.5 g/dL Normal 1.5-4.5 [facility]; [facility] Work Phone: Comment on above: PATIENT WAS FASTINGP ERFORMED BY: CB [facility] Yddkyg1557 [facility] [id number] BY: Labco[address] [id number] Glucose [Mass/Vol] 156 mg/dL Abnormal 70-99 [facility]; [facility] Work Phone: Comment on above: PATIENT WAS FASTINGP ERFORMED BY: FERN [facility] Hguofd9251 [facility] [id number] BY: Lab[facility] [id number] Potassium [Moles/Vol] 4.5 mmol/L Normal 3.5-5.2 [facility]; [facility] Work Phone: Comment on above: PATIENT WAS FASTINGP ERFORMED BY: FERN [facility] Pzdxmh9079 [facility] [id number] BY: [facility] [address] [id number] Protein [Mass/Vol] 7.1 g/dL Normal 6.0-8.5 [facility] Internal Medicine; [facility] Work Phone: Comment on above: PATIENT WAS FASTINGP ERFORMED BY: FERN [facility] Xrvabr6003 [facility] [id number] BY: Labco[address] [id number] Sodium [Moles/Vol] 139 mmol/L Normal 134-144 [facility] Internal [facility]; [facility] Work Phone: Comment on above: PATIENT WAS FASTINGP ERFORMED BY: FERN [facility] Luovzj3184 [facility] [id number] BY: Lab[facility] [id number] Urea nitrogen [Mass/Vol] 10 mg/dL Normal 6-24 [facility]; [facility] Work Phone: Comment on above: PATIENT WAS FASTINGP ERFORMED BY: FERN [facility] Myeawa0328 [facility] [id number] BY: [address]co[address] [id number] Urea nitrogen/Creatinine [Mass ratio] 11 mg/mg Normal 9-20 [facility]; [facility] Work Phone: Comment on above: PATIENT WAS FASTINGP ERFORMED BY: FERN [facility] Ieiqif4210 [facility] [id number] BY: UCROO[address] [id number] TESTOSTERONE FREE (47026)Ord ered By: Duplicator Punch Operator on 10-07-2022 Testosterone Free [Mass/Vol] 8.1 pg/mL Normal 6.8-21.5 [facility]; [facility] Work Phone: Comment on above: PATIENT WAS FASTINGP ERFORMED BY: Fileboard6370 [facility] [id number] BY: UCROO[address] [id number] TESTOSTERONE TOTAL (41934)Or dered By: Duplicator Punch Operator on 10-07-2022 Testosterone [Mass/Vol] 389 ng/dL Normal 264-916 [facility]; [facility] Work Phone: Comment on above: Adult male reference interval is based on a population ofhealthy nonobese males (BMI <30) between 19 and 39 years old.breanna Miranda.al. JCEM 2017,102;0163-7514. PMID: [id number]. PATIENT WAS FASTINGP ERFORMED BY: Storactive6370 [facility] [id number] BY: UCROO[address] [id number] VITAMIN B12 AND FOLATES (826 07)Ordered By: Duplicator Punch Operator on 10-07-2022 Cobalamin (Vitamin B12) [Mass/Vol] 469 pg/mL Normal 232-1245 [facility]; [facility] Work Phone: Comment on above: PATIENT WAS FASTINGP ERFORMED BY: [employer] Knmzgr4011 [facility] [id number] BY: UCROO[address] [id number] Folate [Mass/Vol] 17.1 ng/mL Normal Compreh ensive Internal Medicine; [facility] Work Phone: Comment on above: A serum folate amie ntration of less than 3.1 ng/mL isconsidered to represent clinical deficiency. PATIENT WAS FASTINGP ERFORMED BY: UCROO Yzdhpz5141 [facility] [id number] BY: [facility]1447 [facility] [id number] C-REACTIVE PROTEIN (25896)Or dered By: Duplicator Punch Operator on 06-22-2022 CRP [Mass/Vol] 8 mg/L Normal 0-[address] [facility] Internal Medicine; [facility] Work Phone: Comment on above: also send results to Dr. Robert - [phone]; A courtesy copy of this report has been sent to [phone] WAS FASTINGPERFORMED BY: UCROONewton Medical CenterYogixi8434 [facility] [id number] CALCIFEDIOL (57798)Ordered B y: Duplicator Punch Operator on 06-22-2022 25-hydroxyvitamin D [Mass/Vol] 64.9 ng/mL Normal 30.0-100.0 [facility]; [facility] Work Phone: Comment on above: Vitamin D deficiency has been defined by the [place] ofMedicine and an Endocrine Society practice guideline as alevel of serum 25-OH vitamin D less than 20 ng/mL (1,2).The Endocrine Society went on to further define vitamin Dinsufficiency as a level between 21 and 29 ng/mL (2).1. IOM ([place] of Medicine). 2010. Dietary reference intakes for calcium and D. [place]: The National Academies Press.2. Aurelia MCLAIN, Freddy BENAVIDES, Emi AZAR, et al. Evaluation, treatment, and prevention of vitamin D deficiency: an Endocrine Society clinical practice guideline. JCEM. 2010; 96(7):1911-30. also send results to Dr. Robert - [phone]; A courtesy copy of this report has been sent to [phone] WAS FASTINGPERFORMED BY: UCROO Ddsqqm2158 [facility] [id number] CBC, PLATELETS & MANUAL DIFF (30594)Ordered By: Duplicator Punch Operator on 06-22-2022 Basophils (Bld) [#/Vol] 0.1 10*3/uL Normal 0.0-0.2 [facility]; [facility] Work Phone: Comment on above: also send results to Dr. Yesica Shelton ; A courtesy copy of this report has been sent to [phone] WAS FASTINGPERFORMED BY: FERN UCROO Vfrqbp7188 [facility] [id number] Information: FX DR. EVANGELISTA [phone] Basophils/100 WBC (Bld) 1 % Normal [facility]; [facility] Work Phone: Comment on above: also send results to Dr. Yesica Shelton ; A courtesy copy of this report has been sent to [phone] WAS FASTINGPERFORMED BY: FERN Lancopekarolina MaciasWfhyaa6802 [facility] [id number] Information: FX DR. EVANGELISTA [phone] Eosinophils (Bld) [#/Vol] 0.3 10*3/uL Normal 0.0-0.4 [facility]; [facility] Work Phone: Comment on above: also send results to Dr. Yesica Shelton ; A courtesy copy of this report has been sent to [phone] WAS FASTINGPERFORMED BY: FERN UCROOtrent MaciasEiflwy6074 [facility] [id number] Information: FX DR. EVANGELISTA [phone] Eosinophils/100 WBC (Bld) 3 % Normal [facility]; [facility] Work Phone: Comment on above: also send results to Dr. Yesica Shelton ; A courtesy copy of this report has been sent to [phone] WAS FASTINGPERFORMED BY: FERN UCROOtrent MaciasFtrlac0649 [facility] [id number] Information: FX DR. EVANGELISTA [phone] Erythrocyte distribution width (RBC) [Ratio] 12.8 % Normal 11.6-15.4 [facility]; [facility] Work Phone: Comment on above: also send results to Dr. Yesica Shelton [phone]; A courtesy copy of this report has been sent to [phone] WAS FASTINGPERFORMED BY: FERN Lancopekarolina MaciasRyzjko9784 [facility] [id number] Information: FX DR. EVANGELISTA [phone] Hematocrit (Bld) [Volume fraction] 47.1 % Normal 37.5-51.0 [facility]; [facility] Work Phone: Comment on above: also send results to Dr. Yesica Shelton ; A courtesy copy of this report has been sent to [phone] WAS FASTINGPERFORMED BY: FERN Lancopekarolina MaciasVxmhmu2572 [facility] [id number] Information: FX DR. EVANGELISTA [phone] Hemoglobin (Bld) [Mass/Vol] 16.1 g/dL Normal 13.0-17.7 [facility]; [facility] Work Phone: Comment on above: also send results to Dr. Yesica Shelton [phone]; A courtesy copy of this report has been sent to [phone] WAS FASTINGPERFORMED BY: FERN Maciaslin6370 [facility] [id number] Information: FX DR. EVANGELISTA [phone] Immature granulocytes (Bld) [#/Vol] 0.0 10*3/uL Normal 0.0-0.1 [facility]; [facility] Work Phone: Comment on above: also send results to Dr. Robert [phone]; A courtesy copy of this report has been sent to [phone] WAS FASTINGPERFORMED BY: FERN Lancopekarolina MaciasNmfbht2467 [facility] [id number] Information: FX DR. EVANGELISTA [phone] Immature granulocytes/100 WBC (Bld) 0 % Normal [facility]; [facility] Work Phone: Comment on above: also send results to Dr. Yesica Shelton ; A courtesy copy of this report has been sent to [phone] WAS FASTINGPERFORMED BY: FERN Lancopekarolina MaciasOvhjoq1229 [facility] [id number] Information: FX DR. EVANGELISTA [phone] Lymphocytes (Bld) [#/Vol] 2.8 10*3/uL Normal 0.7-3.1 [facility]; [facility] Work Phone: Comment on above: also send results to Dr. Yesica Shelton ; A courtesy copy of this report has been sent to [phone] WAS FASTINGPERFORMED BY: FERN Lancopekarolina MaciasWlypoc5220 [facility] [id number] Information: FX DR. EVANGELISTA [phone] Lymphocytes/100 WBC (Bld) 30 % Normal [facility]; [facility] Work Phone: Comment on above: also send results to Dr. Yesica Shelton ; A courtesy copy of this report has been sent to [phone] WAS FASTINGPERFORMED BY: FERN Maciaslin6370 [facility] [id number] Information: FX DR. EVANGELISTA [phone] MCH (RBC) [Entitic mass] 31.4 pg Normal 26.6-33.0 [facility]; [facility] Work Phone: Comment on above: also send results to Dr. Yesica Shelton ; A courtesy copy of this report has been sent to [phone] WAS FASTINGPERFORMED BY: FERN UCROO Lqnmfz7682 [facility] [id number] Information: FX DR. EVANGELISTA [phone] MCHC (RBC) [Mass/Vol] 34.2 g/dL Normal 31.5-35.7 [facility] prehensive Internal Medicine; [facility] Work Phone: Comment on above: also send results to Dr. Yesica Shelton ; A courtesy copy of this report has been sent to [phone] WAS FASTINGPERFORMED BY: [facility] Aflfkw9809 [facility] [id number] Information: FX DR. EVANGELISTA [phone] MCV (RBC) [Entitic vol] 92 fL Normal 79-97 [facility]; [facility] Work Phone: Comment on above: also send results to Dr. Yesica Shelton ; A courtesy copy of this report has been sent to [phone] WAS FASTINGPERFORMED BY: [facility]6370 [facility] [id number] Information: FX DR. EVANGELISTA [phone] Monocytes (Bld) [#/Vol] 0.6 10*3/uL Normal 0.1-0.9 [facility]; [facility] Work Phone: Comment on above: also send results to Dr. Yesica Shelton ; A courtesy copy of this report has been sent to [phone] WAS FASTINGPERFORMED BY: [facility]opeVeterans Affairs [facility]6370 [facility] [id number] Information: FX DR. EVANGELISTA [phone] Monocytes/100 WBC (Bld) 7 % Normal [facility]; [facility] Work Phone: Comment on above: also send results to Dr. Yesica Shelton ; A courtesy copy of this report has been sent to [phone] WAS FASTINGPERFORMED BY: [facility]6370 [facility] [id number] Information: FX DR. EVANGELISTA [phone] Neutrophils (Bld) [#/Vol] 5.4 10*3/uL Normal 1.4-7.0 [facility]; [facility] Work Phone: Comment on above: also send results to Dr. Yesica Shelton ; A courtesy copy of this report has been sent to [phone] WAS FASTINGPERFORMED BY: CB LabVeterans Affairs [facility]6370 [facility] [id number] Information: FX DR. EVANGELISTA [phone] Neutrophils/100 WBC (Bld) 59 % Normal [facility]; [facility] Work Phone: Comment on above: also send results to Dr. Robert [phone]; A courtesy copy of this report has been sent to [phone] WAS FASTINGPERFORMED BY: FERN [facility] Yltxdx1654 [facility] [id number] Information: FX DR. EVANGELISTA [phone] Platelets (Bld) [#/Vol] 277 10*3/uL Normal 150-450 [facility]; [facility] Work Phone: Comment on above: also send results to Dr. Robert [phone]; A courtesy copy of this report has been sent to [phone] WAS FASTINGPERFORMED BY: FERN [facility]olina MaciasSdwjvp5584 [facility] [id number] Information: FX DR. EVANGELISTA [phone] RBC (Bld) [#/Vol] 5.12 10*6/uL Normal 4.14-5.80 Compr [facility] Internal Medicine; [facility] Work Phone: Comment on above: also send results to Dr. Robert [phone]; A courtesy copy of this report has been sent to [phone] WAS FASTINGPERFORMED BY: FERN [facility] Hospitalkarolina MaciasAdkngo5146 [facility] [id number] Information: FX DR. EVANGELISTA [phone] WBC (Bld) [#/Vol] 9.2 10*3/uL Normal 3.4-10.8 [facility] Internal Medicine; [facility] Work Phone: Comment on above: also send results to Dr. Robert [phone]; A courtesy copy of this report has been sent to [phone] WAS FASTINGPERFORMED BY: FERN [facility] Cudhgi9049 [facility] [id number] Information: FX DR. EVANGELISTA [phone] HGB A1C (53767)Ordered By: S ystem Plywood And Veneer Repairer on 06-22-2022 HbA1c (Bld) [Mass fraction] 7.3 % Abnormal 4.8-5.6 [facility]; [facility] Work Phone: Comment on above: . Prediabetes: 5.7 - 6.4 Diabetes: >6.4 Glycemic control for adults with diabetes: <7.0 also send results to Dr. Yesica Shelton [phone]; A courtesy copy of this report has been sent to [phone] WAS FASTINGPERFORMED BY: FERN Lancopekarolina Rosario6370 [facility] [id number] LIPID PANEL (52015)Ordered B y: Duplicator Punch Operator on 06-22-2022 Cholesterol [Mass/Vol] 167 mg/dL Normal 100-199 [facility] Internal Medicine; [facility] Work Phone: Comment on above: also send results to Dr. Yesica Shelton [phone]; A courtesy copy of this report has been sent to [phone] WAS FASTINGPERFORMED BY: FERN Rosario6370 [facility] [id number] Cholesterol in HDL [Mass/Vol] 38 mg/dL Abnormal [facility]; [facility] Work Phone: Comment on above: also send results to Dr. Yesica Shelton [phone]; A courtesy copy of this report has been sent to [phone] WAS FASTINGPERFORMED BY: FERN Rosario6370 [facility] [id number] Triglyceride [Mass/Vol] 222 mg/dL Abnormal 0-149 [facility]; [facility] Work Phone: Comment on above: also send results to Dr. Yesica Shelton [phone]; A courtesy copy of this report has been sent to [phone] WAS FASTINGPERFORMED BY: FERN Labkarolina MaciasMhipli0664 [facility] [id number] LIPID PANEL (75117) 38 mg/dL Normal 5-40 [facility] Internal Medicine; [facility] Work Phone: Comment on above: also send results to Dr. Yesica Shelton [phone]; A courtesy copy of this report has been sent to [phone] WAS FASTINGPERFORMED BY: FERN Rosario6370 [facility] [id number] LIPID PANEL (24656) 91 mg/dL Normal 0-99 [facility] Internal Medicine; [facility] Work Phone: Comment on above: also send results to Dr. Yesica Shelton [phone]; A courtesy copy of this report has been sent to [phone] WAS FASTINGPERFORMED BY: FERN [facility] HospitalAnalyte HealthErl[facility] [id number] LIPID PANEL (42288) 2.4 {ratio} Normal 0.0-3.6 [facility] Internal Medicine; [facility] Work Phone: Comment on above: LDL/HDL Ratio Men Wo men 1/2 Avg.Risk 1.0 1.5 Avg.Risk 3.6 3.2 2X Avg.Risk 6.2 5.0 3X Avg.Risk 8.0 6.1 also send results to Dr. Yesica Shelton [phone]; A courtesy copy of this report has been sent to [phone] WAS FASTINGPERFORMED BY: FERN Labkarolina MaciasFxczbx1937 [facility] [id number] METABOLIC PANEL, COMPREHENSI VE (61289)Ordered By: Duplicator Punch Operator on 06-22-2022 Albumin [Mass/Vol] 4.8 g/dL Normal 4.0-5.0 [facility] Internal Medicine; [facility] Work Phone: Comment on above: also send results to Dr. Yesica Shelton [phone]; A courtesy copy of this report has been sent to [phone] WAS FASTINGPERFORMED BY: FERN Labkarolina MaciasJqdukf8796 [facility] [id number] Albumin/Globulin [Mass ratio] 1.7 {ratio} Normal 1.2-2.2 [facility]; [facility] Work Phone: Comment on above: also send results to Dr. Yesica Shelton [phone]; A courtesy copy of this report has been sent to [phone] WAS FASTINGPERFORMED BY: FERN Labkarolina MaciasImwbmw1869 Joyner RoadDublin [place] [id number] ALP [Catalytic activity/Vol] 126 U/L Abnormal 44-121 [facility]; [facility] Work Phone: Comment on above: also send results to Dr. Yesica Shelton [phone]; A courtesy copy of this report has been sent to [phone] WAS FASTINGPERFORMED BY: FERN Labkarolina MaciasGrtcdq6067 [address]ner RoadDublin [place] [id number] ALT [Catalytic activity/Vol] 42 U/L Normal 0-44 [facility]; [facility] Work Phone: Comment on above: also send results to Dr. Yesica Shelton [phone]; A courtesy copy of this report has been sent to [phone] WAS FASTINGPERFORMED BY: FERN Rosario[address] [facility]in [place] [id number] AST [Catalytic activity/Vol] 31 U/L Normal 0-40 [facility]; [facility] Internal Medicine Work Phone: Comment on above: also send results to Dr. Yesica Shelton [phone]; A courtesy copy of this report has been sent to [phone] WAS FASTINGPERFORMED BY: FERN Labkarolina MaciasXlvpqs2926 [address]ner RoadDuin [place] [id number] Bilirubin [Mass/Vol] 0.6 mg/dL Normal 0.0-1.2 [facility] Internal Medicine; [facility] Internal Medicine Work Phone: Comment on above: also send results to Dr. Yesica Shelton [phone]; A courtesy copy of this report has been sent to [phone] WAS FASTINGPERFORMED BY: FERN Martin[address] Radient PharmaceuticalsUnc Hospitals Hills[facility] Campusin [place] [id number] Calcium [Mass/Vol] 9.7 mg/dL Normal 8.7-10.2 [facility]; [facility] Work Phone: Comment on above: also send results to Dr. Robert - [phone]; A courtesy copy of this report has been sent to [phone] WAS FASTINGPERFORMED BY: FERN Labkarolina MaciasQmfqcb4534 [facility]in [place] [id number] Chloride [Moles/Vol] 99 mmol/L Normal 96-106 [facility]; [facility] Work Phone: Comment on above: also send results to Dr. Robert - [phone]; A courtesy copy of this report has been sent to [phone] WAS FASTINGPERFORMED BY: FERN Rosario[address] Radient PharmaceuticalsCarolinas ContinueCARE [facility] [id number] CO2 [Moles/Vol] 24 mmol/L Normal 20-29 [facility] Internal Medicine; [facility] Work Phone: Comment on above: also send results to Dr. Robert - [phone]; A courtesy copy of this report has been sent to [phone] WAS FASTINGPERFORMED BY: FERN Rosario6370 [facility] [id number] Creatinine [Mass/Vol] 0.87 mg/dL Normal 0.76-1.27 [facility] Internal Medicine; [facility] Work Phone: Comment on above: also send results to Dr. Yesica Shelton [phone]; A courtesy copy of this report has been sent to [phone] WAS FASTINGPERFORMED BY: FERN Maciaslin6370 [facility] [id number] GFR/1.73 sq M.predicted among non-blacks MDRD (S/P/Bld) [Vol rate/Area] 109 mL/min/{1.73_m2} Normal [facility]; [facility] Work Phone: Comment on above: also send results to Dr. Yesica Shelton [phone]; A courtesy copy of this report has been sent to [phone] WAS FASTINGPERFORMED BY: FERN Rosario6370 [address] Roadblin [place] [id number] Globulin (S) [Mass/Vol] 2.8 g/dL Normal 1.5-4.5 [facility]; [facility] Work Phone: Comment on above: also send results to Dr. Yesica Shelton ; A courtesy copy of this report has been sent to [phone] WAS FASTINGPERFORMED BY: FERN Labkarolina MaciasRcegow[address] [facility] Hospitalblin [place] [id number] Glucose [Mass/Vol] 119 mg/dL Abnormal 70-99 [facility] Internal Medicine; [facility] Work Phone: Comment on above: also send results to Dr. Yesica Shelton ; A courtesy copy of this report has been sent to [phone] WAS FASTINGPERFORMED BY: FERN Labkarolina MaciasZkrjmo[address] [facility]in [place] [id number] Potassium [Moles/Vol] 3.9 mmol/L Normal 3.5-5.2 [facility] Internal Medicine; [facility] Work Phone: Comment on above: also send results to Dr. Yesica Shelton ; A courtesy copy of this report has been sent to [phone] WAS FASTINGPERFORMED BY: FERN Labkarolina MaciasRggbpj94[address] [facility]in [place] [id number] Protein [Mass/Vol] 7.6 g/dL Normal 6.0-8.5 [facility] Internal Medicine; [facility] Work Phone: Comment on above: also send results to Dr. Yesica Shelton [phone]; A courtesy copy of this report has been sent to [phone] WAS FASTINGPERFORMED BY: FERN Labkarolina MaciasRuprex[address] [facility]in [place] [id number] Sodium [Moles/Vol] 138 mmol/L Normal 134-144 [facility] Internal Medicine; [facility] Work Phone: Comment on above: also send results to Dr. Yesica Shelton [phone]; A courtesy copy of this report has been sent to [phone] WAS FASTINGPERFORMED BY: FERN Rosario[address] PathARErl[facility] [id number] Urea nitrogen [Mass/Vol] 11 mg/dL Normal 6-24 [facility]; [facility] Work Phone: Comment on above: also send results to Dr. Yesica Shelton [phone]; A courtesy copy of this report has been sent to [phone] WAS FASTINGPERFORMED BY: FERN Rosario[address] PathARErl[facility] [id number] Urea nitrogen/Creatinine [Mass ratio] 13 mg/mg Normal 9-20 [facility]; [facility] Work Phone: Comment on above: also send results to Dr. Yesica Shelton [phone]; A courtesy copy of this report has been sent to [phone] WAS FASTINGPERFORMED BY: FERN Rosario[address] PathARErlanger [facility] [id number] MICROALBUMINOrdered By: Syst em Plywood And Veneer Repairer on 06-22-2022 Albumin DL <= 20 mg/L (U) [Mass/Vol] 18.5 ug/mL Normal [facility]; [facility] Work Phone: Comment on above: also send results to Dr. Yesica Shelton [phone]; A courtesy copy of this report has been sent to [phone] WAS FASTINGPERFORMED BY: FERN Rosario6370 JoynerCrossroads Regional Medical CenterAnalyte HealthErlanger [facility] [id number] Albumin/Creatinine (U) [Mass ratio] 15 {mg/g_creat} Normal 0-29 [facility]; [facility] Work Phone: Comment on above: Normal: 0 - 29 Moder ately increased: 30 - 300 Severely increased: >300 also send results to Dr. Robert - [phone]; A courtesy copy of this report has been sent to [phone] WAS FASTINGPERFORMED BY: FERN Labcotrent MaciasPltqar0[address] [facility]in [place] [id number] Creatinine (U) [Mass/Vol] 127.3 mg/dL Normal [facility]; [facility] Work Phone: Comment on above: also send results to Dr. Robert - [phone]; A courtesy copy of this report has been sent to [phone] WAS FASTINGPERFORMED BY: FERN [facility] Yiwrnt[address] Radient PharmaceuticalsUnc Hospitals Hills[facility] Campusin [place] [id number] TSH (THYROID STIMULATING HOR SAPNA) (03173)Ordered By: Duplicator Punch Operator on 06-22-2022 TSH Qn 1.380 {uIU/mL} Normal 0.450-4.500 [facility] Internal Medicine; [facility] Work Phone: Comment on above: also send results to Dr. Robert - [phone]; A courtesy copy of this report has been sent to [phone] WAS FASTINGPERFORMED BY: FERN [facility] Vmldga7581 [facility] HospitalAnalyte HealthErl[facility] [id number] CBC with auto diff (30283)Or dered By: Duplicator Punch Operator on 12-29-2021 Basophils (Bld) [#/Vol] 0.1 10*3/uL Normal 0.0-0.2 [facility]; [facility] Work Phone: Comment on above: PATIENT WAS FASTINGP ERFORMED BY: FERN [facility] Egcnez[address] Formerly [facility] Heritage HospitalDuin [place] [id number] Basophils/100 WBC (Bld) 1 % Normal [facility]; [facility] Work Phone: Comment on above: PATIENT WAS FASTINGP ERFORMED BY: CB [facility] Tsegkv[address] Formerly [facility] HospitalDublin [place] [id number] Eosinophils (Bld) [#/Vol] 0.3 10*3/uL Normal 0.0-0.4 [facility]; [facility] Work Phone: Comment on above: PATIENT WAS FASTINGP ERFORMED BY: [facility] Aqnrtn2482 [address] RoadDublin [place] [id number] Eosinophils/100 WBC (Bld) 3 % Normal [facility]; [facility] Work Phone: Comment on above: PATIENT WAS FASTINGP ERFORMED BY: [facility] Svlgfo1848 [address] RoadDublin [place] [id number] Erythrocyte distribution width (RBC) [Ratio] 13.0 % Normal 11.6-15.4 [facility]; [facility] Work Phone: Comment on above: PATIENT WAS FASTINGP ERFORMED BY: CB [facility] Cydnpu7641 Joyner RoadUnc Hospitals Hillsborough Campusin [place] [id number] Hematocrit (Bld) [Volume fraction] 45.1 % Normal 37.5-51.0 [facility]; [facility] Work Phone: Comment on above: PATIENT WAS FASTINGP ERFORMED BY: CB [facility] Rcpywg6810 Joyner RoadUnc Hospitals Hillsborough Campusin [place] [id number] Hemoglobin (Bld) [Mass/Vol] 15.6 g/dL Normal 13.0-17.7 [facility]; [facility] Work Phone: Comment on above: PATIENT WAS FASTINGP ERFORMED BY: [facility] Hvdkop0681 [address] RoadDublin [place] [id number] Immature granulocytes (Bld) [#/Vol] 0.0 10*3/uL Normal 0.0-0.1 [facility]; [facility] Work Phone: Comment on above: PATIENT WAS FASTINGP ERFORMED BY: CB [facility] Zifyff0195 [address] RoadDublin [place] [id number] Immature granulocytes/100 WBC (Bld) 0 % Normal [facility]; [facility] Work Phone: Comment on above: PATIENT WAS FASTINGP ERFORMED BY: CB [facility] Erypqa8007 [address] RoadDublin [place] [id number] Lymphocytes (Bld) [#/Vol] 2.8 10*3/uL Normal 0.7-3.1 [facility]; [facility] Work Phone: Comment on above: PATIENT WAS FASTINGP ERFORMED BY: FERN Labcotrent RosarioOhuoto3387 [address] RoadDublin [place] [id number] Lymphocytes/100 WBC (Bld) 28 % Normal [facility]; [facility] Work Phone: Comment on above: PATIENT WAS FASTINGP ERFORMED BY: FERN [facility] Sfngrd9635 [address] RoadDublin [place] [id number] MCH (RBC) [Entitic mass] 31.1 pg Normal 26.6-33.0 [facility]; [facility] Work Phone: Comment on above: PATIENT WAS FASTINGP ERFORMED BY: FERN Labcotrent Kmrvdj0378 [address] RoadDublin [place] [id number] MCHC (RBC) [Mass/Vol] 34.6 g/dL Normal 31.5-35.7 [facility] prehensive Internal Medicine; [facility] Work Phone: Comment on above: PATIENT WAS FASTINGP ERFORMED BY: FERN Labcotrent Lpgrlv4337 [address] RoadDublin [place] [id number] MCV (RBC) [Entitic vol] 90 fL Normal 79-97 [facility]; [facility] Work Phone: Comment on above: PATIENT WAS FASTINGP ERFORMED BY: FERN [facility] Jrylvi5026 [address] RoadDuin [place] [id number] Monocytes (Bld) [#/Vol] 0.7 10*3/uL Normal 0.1-0.9 [facility]; [facility] Work Phone: Comment on above: PATIENT WAS FASTINGP ERFORMED BY: FERN [facility] Zxxmei1046 [address] RoadDublin [place] [id number] Monocytes/100 WBC (Bld) 7 % Normal [facility]; [facility] Work Phone: Comment on above: PATIENT WAS FASTINGP ERFORMED BY: FERN [facility] Iyuunl7540 [address] RoadDublin [place] [id number] Neutrophils (Bld) [#/Vol] 6.0 10*3/uL Normal 1.4-7.0 [facility]; [facility] Work Phone: Comment on above: PATIENT WAS FASTINGP ERFORMED BY: FERN Genet Rosario6370 [address] Roadbl[address] [place] [id number] Neutrophils/100 WBC (Bld) 61 % Normal [facility]; [facility] Work Phone: Comment on above: PATIENT WAS FASTINGP ERFORMED BY: FERN Labcotrent RosarioWohluz0788 [address] Roadblin [place] [id number] Platelets (Bld) [#/Vol] 259 10*3/uL Normal 150-450 [facility]; [facility] Work Phone: Comment on above: PATIENT WAS FASTINGP ERFORMED BY: FERN Rontrent Viwvcj2251 [address] Roadblin [place] [id number] RBC (Bld) [#/Vol] 5.01 10*6/uL Normal 4.14-5.[address] Internal Medicine; [facility] Work Phone: Comment on above: PATIENT WAS FASTINGP ERFORMED BY: FERN Chriskarolina Tsrytb[address] Formerly [facility] HospitalDublin [place] [id number] WBC (Bld) [#/Vol] 9.9 10*3/uL Normal 3.4-10.8 [facility] Internal [facility]; [facility] Work Phone: Comment on above: PATIENT WAS FASTINGP ERFORMED BY: FERN Lablaytrent Hhgwyb67[address] [facility] Hospitalblin [place] [id number] HGB A1C (91724)Ordered By: S ystem Plywood [employer] Veneer Repairer on 12-29-2021 HbA1c (Bld) [Mass fraction] 7.4 % Abnormal 4.8-5.6 [facility]; [facility] Work Phone: Comment on above: . Prediabetes: 5.7 - 6.4 Diabetes: >6.4 Glycemic control for adults with diabetes: <7.0; ADDENDA: fu 6-24 df PATIENT WAS FASTINGP ERFORMED BY: FERN Labcotrent Chlnra50[address] [facility] Hospitalblin [place] [id number] LIPID PANEL (00726)Ordered B y: Duplicator Punch Operator on 12-29-2021 Cholesterol [Mass/Vol] 176 mg/dL Normal 100-199 [facility] centerensive Internal Medicine; [facility] Work Phone: Comment on above: PATIENT WAS FASTINGP ERFORMED BY: FERN [facility] Sqoejo8771 [address] RoadDublin [place] [id number] Cholesterol in HDL [Mass/Vol] 41 mg/dL Normal [facility]; [facility] Work Phone: Comment on above: PATIENT WAS FASTINGP ERFORMED BY: CB [facility] Iufqxj9752 [address] RoadDublin [place] [id number] Triglyceride [Mass/Vol] 227 mg/dL Abnormal 0-149 [facility]; [facility] Work Phone: Comment on above: PATIENT WAS FASTINGP ERFORMED BY: FERN [facility] Qvulnh5172 [address] RoadDublin [place] [id number] LIPID PANEL (41527) 39 mg/dL Normal 5-40 Compr ensive Internal Medicine; [facility] Work Phone: Comment on above: PATIENT WAS FASTINGP ERFORMED BY: CB [facility] Siotqk9401 [address] RoadDublin [place] [id number] LIPID PANEL (69393) 96 mg/dL Normal 0-99 [facility]; [facility] Work Phone: Comment on above: PATIENT WAS FASTINGP ERFORMED BY: CB [facility] Yjxpdx6354 [address] RoadDublin [place] [id number] LIPID PANEL (39454) 2.3 {ratio} Normal 0.0-3.6 [facility]; [facility] Work Phone: Comment on above: LDL/HDL Ratio Men Wo men 1/2 Avg.Risk 1.0 1.5 Avg.Risk 3.6 3.2 2X Avg.Risk 6.2 5.0 3X Avg.Risk 8.0 6.1 PATIENT WAS FASTINGP ERFORMED BY: CB [facility] Etbsob2912 [address] RoadDublin [place] [id number] METABOLIC PANEL, COMPREHENSI VE (62529)Ordered By: Duplicator Punch Operator on 12-29-2021 Albumin [Mass/Vol] 4.6 g/dL Normal 4.0-5.0 [facility] Internal Medicine; [facility] Work Phone: Comment on above: PATIENT WAS FASTINGP ERFORMED BY: CB [facility] Wclwsf8821 [address] RoadDublin [place] [id number] Albumin/Globulin [Mass ratio] 1.6 {ratio} Normal 1.2-2.2 [facility]; [facility] Work Phone: Comment on above: PATIENT WAS FASTINGP ERFORMED BY: CB [facility] Etyiyj7190 [address] RoadDublin [place] [id number] ALP [Catalytic activity/Vol] 112 U/L Normal 44-121 [facility]; [facility] Work Phone: Comment on above: PATIENT WAS FASTINGP ERFORMED BY: CB [facility] Bkskwn2506 [address] RoadDublin [place] [id number] ALT [Catalytic activity/Vol] 34 U/L Normal 0-44 [facility]; [facility] Work Phone: Comment on above: PATIENT WAS FASTINGP ERFORMED BY: CB [facility] Nujddc9921 [address] RoadDublin [place] [id number] AST [Catalytic activity/Vol] 26 U/L Normal 0-40 [facility]; [facility] Work Phone: Comment on above: PATIENT WAS FASTINGP ERFORMED BY: CB [facility] Gesbjj2823 [address] RoadDublin [place] [id number] Bilirubin [Mass/Vol] 0.5 mg/dL Normal 0.0-1.2 [facility] Internal Medicine; [facility] Internal Medicine Work Phone: Comment on above: PATIENT WAS FASTINGP ERFORMED BY: CB [facility] Aypbmb5421 [address] RoadDublin [place] [id number] Calcium [Mass/Vol] 9.5 mg/dL Normal 8.7-10.2 [facility] Internal [facility]; [facility] Work Phone: Comment on above: PATIENT WAS FASTINGP ERFORMED BY: CB [facility] Gmfkvw2584 [address] RoadDublin [place] [id number] Chloride [Moles/Vol] 103 mmol/L Normal 96-106 [facility] rehensive Internal Medicine; [facility] Work Phone: Comment on above: PATIENT WAS FASTINGP ERFORMED BY: Labsaint [facility]oseph [facility] west Sbjeqe450[address] [facility]in [place] [id number] CO2 [Moles/Vol] 22 mmol/L Normal 20-29 Comprehen [facility] Internal [facility]; [facility] Work Phone: Comment on above: PATIENT WAS FASTINGP ERFORMED BY: Labsaint [facility]oseph [facility] west Yvaabn8285 [facility] [id number] Creatinine [Mass/Vol] 0.90 mg/dL Normal 0.76-1.27 [facility]; [facility] Work Phone: Comment on above: PATIENT WAS FASTINGP ERFORMED BY: LabVeterans Affairs [facility] System6370 [facility] [id number] GFR/1.73 sq M.predicted among non-blacks MDRD (S/P/Bld) [Vol rate/Area] 108 mL/min/{1.73_m2} Normal Comprehenscapital [facility]; [facility] Work Phone: Comment on above: PATIENT WAS FASTINGP ERFORMED BY: [facility]6370 [facility] [id number] Globulin (S) [Mass/Vol] 2.9 g/dL Normal 1.5-4.5 [facility] Internal Medicine; [facility] Work Phone: Comment on above: PATIENT WAS FASTINGP ERFORMED BY: [facility] Mctcjc5152 [address] [facility] [id number] Glucose [Mass/Vol] 102 mg/dL Abnormal 65-99 [facility]; [facility] Work Phone: Comment on above: PATIENT WAS FASTINGP ERFORMED BY: Labsaint [facility]oseph [facility] west Hbicec9982 [facility]in [place] [id number] Potassium [Moles/Vol] 4.6 mmol/L Normal 3.5-5.2 Com prehensive Internal Medicine; [facility] Work Phone: Comment on above: PATIENT WAS FASTINGP ERFORMED BY: FERN Labcotrent Voefni4167 [address] RoadDublin [place] [id number] Protein [Mass/Vol] 7.5 g/dL Normal 6.0-8.5 [facility] Internal Medicine; [facility] Work Phone: Comment on above: PATIENT WAS FASTINGP ERFORMED BY: FERN [facility] Scmjjf4024 [address] RoadDublin [place] [id number] Sodium [Moles/Vol] 140 mmol/L Normal 134-144 [facility] Internal Medicine; [facility] Work Phone: Comment on above: PATIENT WAS FASTINGP ERFORMED BY: FERN Labcotrent Mxmwan3550 [address] RoadDublin [place] [id number] Urea nitrogen [Mass/Vol] 8 mg/dL Normal 6-24 [facility]; [facility] Work Phone: Comment on above: PATIENT WAS FASTINGP ERFORMED BY: FERN [facility] Kwsgyb6074 [address] RoadDublin [place] [id number] Urea nitrogen/Creatinine [Mass ratio] 9 mg/mg Normal 9-20 [facility]; [facility] Work Phone: Comment on above: PATIENT WAS FASTINGP ERFORMED BY: FERN Labcotrent Vbnazk2110 [address] RoadDublin [place] [id number] MICROALBUMINOrdered By: Syst em [employer] Veneer Repairer on 12-29-2021 Albumin DL <= 20 mg/L (U) [Mass/Vol] 13.8 ug/mL Normal [facility]; [facility] Work Phone: Comment on above: PATIENT WAS FASTINGP ERFORMED BY: FERN [facility] Ktwjgj7432 [address] RoadDublin [place] [id number] Albumin/Creatinine (U) [Mass ratio] 12 {mg/g_creat} Normal 0-29 [facility]; [facility] Work Phone: Comment on above: Normal: 0 - 29 Moder ately increased: 30 - 300 Severely increased: >300 PATIENT WAS FASTINGP ERFORMED BY: Storactive[address] Radient PharmaceuticalsCarolinas ContinueCARE Hospital [facility] [id number] Creatinine (U) [Mass/Vol] 116.9 mg/dL Normal [facility]; [facility] Work Phone: Comment on above: PATIENT WAS FASTINGP ERFORMED BY: Storactive6370 [facility] [id number] Vitamin D Hydroxy (92745)Ord ered By: Duplicator Punch Operator on 12-29-2021 25-hydroxyvitamin D [Mass/Vol] 47.2 ng/mL Normal 30.0-100.0 [facility]; [facility] Work Phone: Comment on above: Vitamin D deficiency has been defined by the [place] ofMedicine and an Endocrine Society practice guideline as alevel of serum 25-OH vitamin D less than 20 ng/mL (1,2).The Endocrine Society went on to further define vitamin Dinsufficiency as a level between 21 and 29 ng/mL (2).1. IOM ([place] of Medicine). 2010. Dietary reference intakes for calcium and D. [place]: The National Academies Press.2. Aurelia MF, Freddy NC, Emi AZAR, et al. Evaluation, treatment, and prevention of vitamin D deficiency: an Endocrine Society clinical practice guideline. JCEM. 2010; 96(7):1911-30. PATIENT WAS FASTINGP ERFORMED BY: Storactive6370 [facility] [id number] C-REACT PROT HIGH SENS(hsCRP ) (62572)Ordered By: Duplicator Punch Operator on 09-08-2021 CRP High sensitivity method [Mass/Vol] 5.53 mg/L Abnormal 0.00-3.00 [facility]; [facility] Work Phone: Comment on above: Relative Risk for Fu ture Cardiovascular Event Low <1.00 Average 1.00 - 3.00 High >3.00 PATIENT WAS FASTINGP ERFORMED BY: L[employer] Softwarelin6370 [facility] [id number]; appt 3/4 HGB A1C (41712)Ordered By: S ystem [employer] Veneer Repairer on 09-08-2021 HbA1c (Bld) [Mass fraction] 7.9 % Abnormal 4.8-5.6 [facility]; [facility] Work Phone: Comment on above: . Prediabetes: 5.7 - 6.4 Diabetes: >6.4 Glycemic control for adults with diabetes: <7.0 PATIENT WAS FASTINGP ERFORMED BY: FERN Labcotrent Lguwox9593 [address] [facility] Hospitalblin [place] [id number] LIPID PANEL (60552)Ordered B y: Duplicator Punch Operator on 09-08-2021 Cholesterol [Mass/Vol] 145 mg/dL Normal 100-199 [facility] centerensive Internal [facility]; [facility] Work Phone: Comment on above: PATIENT WAS FASTINGP ERFORMED BY: FERN Labkarolina MaciasJjxqlz5111 [address] [facility]in [place] [id number] Cholesterol in HDL [Mass/Vol] 38 mg/dL Abnormal [facility]; [facility] Work Phone: Comment on above: PATIENT WAS FASTINGP ERFORMED BY: FERN Labkarolina MaciasVjbboz3290 [address] [facility]in [place] [id number] Triglyceride [Mass/Vol] 148 mg/dL Normal 0-149 [facility]; [facility] Work Phone: Comment on above: PATIENT WAS FASTINGP ERFORMED BY: FERN Labkarolina MaciasYgtolc0336 [facility] [facility]in [place] [id number] LIPID PANEL (50967) 26 mg/dL Normal 5-40 [facility]; [facility] Work Phone: Comment on above: PATIENT WAS FASTINGP ERFORMED BY: FERN Labkarolina Asnwak1320 [facility]in [place] [id number] LIPID PANEL (88398) 81 mg/dL Normal 0-99 [facility]; [facility] Work Phone: Comment on above: PATIENT WAS FASTINGP ERFORMED BY: FERN Labkarolina Kmdzej6081 [facility]in [place] [id number] LIPID PANEL (91910) 2.1 {ratio} Normal 0.0-3.6 [facility]; [facility] Work Phone: Comment on above: LDL/HDL Ratio Men Wo men 1/2 Avg.Risk 1.0 1.5 Avg.Risk 3.6 3.2 2X Avg.Risk 6.2 5.0 3X Avg.Risk 8.0 6.1 PATIENT WAS FASTINGP ERFORMED BY: [facility]6370 [facility] [id number] METABOLIC PANEL, COMPREHENSI VE (92684)Ordered By: Duplicator Punch Operator on 09-08-2021 Albumin [Mass/Vol] 4.9 g/dL Normal 4.0-5.0 [facility] Internal Medicine; [facility] Work Phone: Comment on above: PATIENT WAS FASTINGP ERFORMED BY: [facility]6370 [facility] [id number] Albumin/Globulin [Mass ratio] 1.8 {ratio} Normal 1.2-2.2 [facility]; [facility] Work Phone: Comment on above: PATIENT WAS FASTINGP ERFORMED BY: [facility]6370 [facility] [id number] ALP [Catalytic activity/Vol] 109 U/L Normal 44-121 [facility]; [facility] Work Phone: Comment on above: PATIENT WAS FASTINGP ERFORMED BY: [facility]6370 [facility] [id number] ALT [Catalytic activity/Vol] 38 U/L Normal 0-44 [facility]; [facility] Work Phone: Comment on above: PATIENT WAS FASTINGP ERFORMED BY: [facility]6370 [facility] [id number] AST [Catalytic activity/Vol] 25 U/L Normal 0-40 [facility]; [facility] Work Phone: Comment on above: PATIENT WAS FASTINGP ERFORMED BY: [facility]6370 [facility] [id number] Bilirubin [Mass/Vol] 0.7 mg/dL Normal 0.0-1.2 [facility] Internal Medicine; [facility] Work Phone: Comment on above: PATIENT WAS FASTINGP ERFORMED BY: FERN Velasquez Ldghvl5720 [facility] [id number] Calcium [Mass/Vol] 10.0 mg/dL Normal 8.7-10.2 [facility]; [facility] Work Phone: Comment on above: PATIENT WAS FASTINGP ERFORMED BY: Ron Obcbgk9470 [facility] [id number] Chloride [Moles/Vol] 99 mmol/L Normal 96-106 Comp rehensive Internal Medicine; [facility] Work Phone: Comment on above: PATIENT WAS FASTINGP ERFORMED BY: Ron Nfamyh5125 [facility] [id number] CO2 [Moles/Vol] 22 mmol/L Normal 20-29 [facility] Internal [facility]; [facility] Work Phone: Comment on above: PATIENT WAS FASTINGP ERFORMED BY: Ron Tloyeg3731 [facility] [id number] Creatinine [Mass/Vol] 1.07 mg/dL Normal 0.76-1.27 [facility] prehensive Internal Medicine; [facility] Work Phone: Comment on above: PATIENT WAS FASTINGP ERFORMED BY: Ron Bkfqpx5771 [facility] [id number] GFR/1.73 sq M.predicted among non-blacks MDRD (S/P/Bld) [Vol rate/Area] 88 mL/min/{1.73_m2} Normal Comprehensiv e Internal Medicine; [facility] Work Phone: Comment on above: In accordance with recommendations from the NKF-ASN Task force, [facility] has updated its eGFR calculation to the 2020 CKD-EPI creatinine equation that estimates kidney function without a race variable. PATIENT WAS FASTINGP ERFORMED BY: FERN Velasquez Urghaq3165 [facility] [id number] Globulin (S) [Mass/Vol] 2.7 g/dL Normal 1.5-4.5 [facility]; [facility] Work Phone: Comment on above: PATIENT WAS FASTINGP ERFORMED BY: FERN [facility] Fjjwfy2056 [address]ner RoadDublin [place] [id number] Glucose [Mass/Vol] 87 mg/dL Normal 65-99 [facility] Internal Medicine; [facility] Work Phone: Comment on above: PATIENT WAS FASTINGP ERFORMED BY: CB [facility] Ehwhts5144 [address] RoadDublin [place] [id number] Potassium [Moles/Vol] 4.4 mmol/L Normal 3.5-5.2 [facility]; [facility] Work Phone: Comment on above: PATIENT WAS FASTINGP ERFORMED BY: CB [facility] Nnwgwm7109 [address] RoadDublin [place] [id number] Protein [Mass/Vol] 7.6 g/dL Normal 6.0-8.5 [facility] Internal Medicine; [facility] Work Phone: Comment on above: PATIENT WAS FASTINGP ERFORMED BY: [facility] Jtmjlk6079 [address] RoadDublin [place] [id number] Sodium [Moles/Vol] 138 mmol/L Normal 134-144 [facility] Internal Medicine; [facility] Work Phone: Comment on above: PATIENT WAS FASTINGP ERFORMED BY: [facility] Pjehyh8543 [address] RoadDublin [place] [id number] Urea nitrogen [Mass/Vol] 10 mg/dL Normal 6-24 [facility] Internal Medicine; [facility] Work Phone: Comment on above: PATIENT WAS FASTINGP ERFORMED BY: [facility] Unjjly7761 [address] RoadDublin [place] [id number] Urea nitrogen/Creatinine [Mass ratio] 9 mg/mg Normal 9-20 [facility] Internal Medicine; [facility] Work Phone: Comment on above: PATIENT WAS FASTINGP ERFORMED BY: CB [facility] Awltvi6239 [address] RoadDublin [place] [id number] Vitamin D Hydroxy (90110)Ord ered By: Duplicator Punch Operator on 09-08-2021 25-hydroxyvitamin D [Mass/Vol] 83.0 ng/mL Normal 30.0-100.0 [facility]; [facility] Work Phone: Comment on above: Vitamin D deficiency has been defined by the [place] ofMedicine and an Endocrine Society practice guideline as alevel of serum 25-OH vitamin D less than 20 ng/mL (1,2).The Endocrine Society went on to further define vitamin Dinsufficiency as a level between 21 and 29 ng/mL (2).1. IOM ([place] of Medicine). 2010. Dietary reference intakes for calcium and D. [place]: The National Academies Press.2. Aurelia MF, Freddy BENAVIDES, Emi AZAR, et al. Evaluation, treatment, and prevention of vitamin D deficiency: an Endocrine Society clinical practice guideline. JCEM. 2010; 96(7):1911-30. PATIENT WAS FASTINGP ERFORMED BY: [place] [id number] CBC W/AUTO DIFF WBC (61079)O rdered By: Duplicator Punch Operator on 05-07-2021 Basophils (Bld) [#/Vol] 0.0 10*3/uL Normal 0.0-0.2 [facility]; [facility] Work Phone: Comment on above: PATIENT WAS FASTINGP ERFORMED BY: RXi PharmaceuticalsErlanger [facility] Hospital [id number] Information: NURSE DRAW Basophils/100 WBC (Bld) 1 % Normal [facility]; [facility] Work Phone: Comment on above: PATIENT WAS FASTINGP ERFORMED BY: [employer]70 Versie Christian CompanionErlanger Western [facility] Hospital [id number] Information: NURSE DRAW Eosinophils (Bld) [#/Vol] 0.4 10*3/uL Normal 0.0-0.4 [facility]; [facility] Work Phone: Comment on above: PATIENT WAS FASTINGP ERFORMED BY: RXi PharmaceuticalsErlanger [facility] Hospital [id number] Information: NURSE DRAW Eosinophils/100 WBC (Bld) 4 % Normal [facility]; [facility] Work Phone: Comment on above: PATIENT WAS FASTINGP ERFORMED BY: FERN Velasquez Gsuutt1291 [facility] [id number] Information: NURSE DRAW Erythrocyte distribution width (RBC) [Ratio] 13.3 % Normal 11.6-15.4 [facility]; [facility] Work Phone: Comment on above: PATIENT WAS FASTINGP ERFORMED BY: FERN PerezJohn J. Pershing [facility] Yklidj20[address] [id number] Information: NURSE DRAW Hematocrit (Bld) [Volume fraction] 45.1 % Normal 37.5-51.0 [facility]; [facility] Work Phone: Comment on above: PATIENT WAS FASTINGP ERFORMED BY: FERN PerezJohn J. Pers[facility] Center Gflkhw128[address] [id number] Information: NURSE DRAW Hemoglobin (Bld) [Mass/Vol] 15.4 g/dL Normal 13.0-17.7 [facility]; [facility] Work Phone: Comment on above: PATIENT WAS FASTINGP ERFORMED BY: FERN ChrisJohn J. [facility] Qtozgh3[address] [id number] Information: NURSE DRAW Immature granulocytes (Bld) [#/Vol] 0.0 10*3/uL Normal 0.0-0.1 [facility]; [facility] Work Phone: Comment on above: PATIENT WAS FASTINGP ERFORMED BY: FERN Perez[address] [id number] Information: NURSE DRAW Immature granulocytes/100 WBC (Bld) 0 % Normal [facility]; [facility] Work Phone: Comment on above: PATIENT WAS FASTINGP ERFORMED BY: FERN Velasquez Spieql[address] [id number] Information: NURSE DRAW Lymphocytes (Bld) [#/Vol] 3.0 10*3/uL Normal 0.7-3.1 [facility]; [facility] Work Phone: Comment on above: PATIENT WAS FASTINGP ERFORMED BY: FERN RonNewton Medical CenterSmlxma8224 [facility] [id number] Information: NURSE DRAW Lymphocytes/100 WBC (Bld) 36 % Normal [facility]; [facility] Work Phone: Comment on above: PATIENT WAS FASTINGP ERFORMED BY: FERN ChrisJohn J. [facility] Abyfky8053 [facility] [id number] Information: NURSE DRAW MCH (RBC) [Entitic mass] 30.7 pg Normal 26.6-33.0 [facility]; [facility] Work Phone: Comment on above: PATIENT WAS FASTINGP ERFORMED BY: FERN ChrisJohn J. [facility] Vfvllu0866 [facility] [id number] Information: NURSE DRAW MCHC (RBC) [Mass/Vol] 34.1 g/dL Normal 31.5-35.7 [facility] prehensive Internal Medicine; [facility] Work Phone: Comment on above: PATIENT WAS FASTINGP ERFORMED BY: FERN ChrisKeith [place] 9250270 [facility] [id number] Information: NURSE DRAW MCV (RBC) [Entitic vol] 90 fL Normal 79-97 [facility]; [facility] Work Phone: Comment on above: PATIENT WAS FASTINGP ERFORMED BY: FERN [place] [id number] [facility] [id number] Information: NURSE DRAW Monocytes (Bld) [#/Vol] 0.7 10*3/uL Normal 0.1-0.9 [facility]; [facility] Work Phone: Comment on above: PATIENT WAS FASTINGP ERFORMED BY: FERN LabKeith [place] 9250270 [facility] [id number] Information: NURSE DRAW Monocytes/100 WBC (Bld) 9 % Normal [facility]; [facility] Work Phone: Comment on above: PATIENT WAS FASTINGP ERFORMED BY: FERN LabKeith [place] 9250270 [facility] [id number] Information: NURSE DRAW Neutrophils (Bld) [#/Vol] 4.2 10*3/uL Normal 1.4-7.0 [facility]; [facility] Work Phone: Comment on above: PATIENT WAS FASTINGP ERFORMED BY: FERN Martin70 [facility] [id number] Information: NURSE DRAW Neutrophils/100 WBC (Bld) 50 % Normal [facility]; [facility] Work Phone: Comment on above: PATIENT WAS FASTINGP ERFORMED BY: FERN ChrisJohn J. [facility] Lvptdi2586 [facility] [id number] Information: NURSE DRAW Platelets (Bld) [#/Vol] 261 10*3/uL Normal 150-450 [facility]; [facility] Work Phone: Comment on above: PATIENT WAS FASTINGP ERFORMED BY: FERN ChrisJohn J. [facility] Frukxc34[address] [id number] Information: NURSE DRAW RBC (Bld) [#/Vol] 5.01 10*6/uL Normal 4.14-5.80 [facility] Internal Medicine; [facility] Work Phone: Comment on above: PATIENT WAS FASTINGP ERFORMED BY: FERN Genet Maciaslin6370 [facility] [id number] Information: NURSE DRAW WBC (Bld) [#/Vol] 8.4 10*3/uL Normal 3.4-10.8 [facility] Internal Medicine; [facility] Work Phone: Comment on above: PATIENT WAS FASTINGP ERFORMED BY: FERN ChrisJohn J. [facility] Ykiwma7176 [facility] [id number] Information: NURSE DRAW METABOLIC PANEL, JAMAL AYERS (96661)Ordered By: Duplicator Punch Operator on 05-07-2021 Albumin [Mass/Vol] 4.5 g/dL Normal 4.0-5.0 [facility] Internal Medicine; [facility] Work Phone: Comment on above: PATIENT WAS FASTINGP ERFORMED BY: FERN ChrisDetroit Receiving [facility]6370 [facility] Hospitalblin [place] [id number] Albumin/Globulin [Mass ratio] 1.6 {ratio} Normal 1.2-2.2 [facility]; [facility] Work Phone: Comment on above: PATIENT WAS FASTINGP ERFORMED BY: FERN Velasquez Lnrzjl8148 [address] [facility] Hospitalblin [place] [id number] ALP [Catalytic activity/Vol] 106 U/L Normal 44-121 [facility]; [facility] Work Phone: Comment on above: Please note refere nce interval change PATIENT WAS FASTINGP ERFORMED BY: ChrisJohn J. [facility] Efbbdm7154 [facility]in [place] [id number] ALT [Catalytic activity/Vol] 47 U/L Abnormal 0-44 [facility]; [facility] Work Phone: Comment on above: PATIENT WAS FASTINGP ERFORMED BY: ChrisJohn J. [facility] Vvezko9035 [address] [facility] [place] [id number] AST [Catalytic activity/Vol] 33 U/L Normal 0-40 [facility]; [facility] Work Phone: Comment on above: PATIENT WAS FASTINGP ERFORMED BY: ChrisJohn J. [facility] Jxrzig2951 [facility]in [place] [id number] Bilirubin [Mass/Vol] 0.4 mg/dL Normal 0.0-1.2 Comp rehensive Internal Medicine; [facility] Work Phone: Comment on above: PATIENT WAS FASTINGP ERFORMED BY: ChrisJohn J. [facility] Fvyhwt1566 [facility]in [place] [id number] Calcium [Mass/Vol] 9.3 mg/dL Normal 8.7-10.2 [facility] Internal Medicine; [facility] Work Phone: Comment on above: PATIENT WAS FASTINGP ERFORMED BY: ChrisJohn [facility]. [facility] Wjoqkv0981 [address] [facility] [place] [id number] Chloride [Moles/Vol] 104 mmol/L Normal 96-106 Comp rehensive Internal Medicine; [facility] Work Phone: Comment on above: PATIENT WAS FASTINGP ERFORMED BY: FERN Rosario6370 [facility]nerCrossroads [facility] Medical CenterHermannErlanger [facility] [id number] CO2 [Moles/Vol] 22 mmol/L Normal 20-29 [facility] Internal Medicine; [facility] Work Phone: Comment on above: PATIENT WAS FASTINGP ERFORMED BY: FERN Maciaslin6370 [facility] [id number] Creatinine [Mass/Vol] 0.96 mg/dL Normal 0.76-1.27 [facility]; [facility] Work Phone: Comment on above: PATIENT WAS FASTINGP ERFORMED BY: Ron Nboczd1683 [facility] [id number] GFR/1.73 sq M.predicted among blacks CKD-EPI (S/P/Bld) [Vol rate/Area] 111 mL/min/1.73 Normal [facility]; [facility] Work Phone: Comment on above: In accordance with recommendations from the NKF-ASN Task force, [facility] is [facility] the [facility] of updating its eGFR calculation to the 2020 CKD-EPI creatinine equation that estimates kidney function without a race variable. PATIENT WAS FASTINGP ERFORMED BY: FERN Rosario6370 [facility] [id number] GFR/1.73 sq M.predicted among non-blacks CKD-EPI (S/P/Bld) [Vol rate/Area] 96 mL/min/1.73 Normal [facility]; [facility] Work Phone: Comment on above: PATIENT WAS FASTINGP ERFORMED BY: Ron Sbspve1533 [facility] [id number] Globulin (S) [Mass/Vol] 2.8 g/dL Normal 1.5-4.5 [facility]; [facility] Work Phone: Comment on above: PATIENT WAS FASTINGP ERFORMED BY: Ron Xbbsjx4233 [facility] [id number] Glucose [Mass/Vol] 120 mg/dL Abnormal 65-99 Compre hensive Internal Medicine; [facility] Work Phone: Comment on above: PATIENT WAS FASTINGP ERFORMED BY: FERN [facility] Eshwdx0806 [address] RoadDublin [place] [id number] Potassium [Moles/Vol] 4.1 mmol/L Normal 3.5-5.2 [facility] Internal Medicine; [facility] Work Phone: Comment on above: PATIENT WAS FASTINGP ERFORMED BY: CB [facility] Nyfppc2738 [address] RoadDublin [place] [id number] Protein [Mass/Vol] 7.3 g/dL Normal 6.0-8.5 [facility] Internal Medicine; [facility] Work Phone: Comment on above: PATIENT WAS FASTINGP ERFORMED BY: CB [facility] Rseaxx5971 [address] RoadDublin [place] [id number] Sodium [Moles/Vol] 141 mmol/L Normal 134-144 [facility] Internal Medicine; [facility] Work Phone: Comment on above: PATIENT WAS FASTINGP ERFORMED BY: FERN [facility] Btrevn0307 [address] RoadDublin [place] [id number] Urea nitrogen [Mass/Vol] 9 mg/dL Normal 6-24 [facility]; [facility] Work Phone: Comment on above: PATIENT WAS FASTINGP ERFORMED BY: FERN [facility] Kffsoa4826 [address] RoadDublin [place] [id number] Urea nitrogen/Creatinine [Mass ratio] 9 mg/mg Normal 9-20 [facility] Internal Medicine; [facility] Work Phone: Comment on above: PATIENT WAS FASTINGP ERFORMED BY: CB [facility] Whecux9912 [address] RoadDublin [place] [id number] CBC, PLATELETS & MANUAL DIFF ([id number])Ordered By: Duplicator Punch Operator on 03-26-2021 Basophils (Bld) [#/Vol] 0.1 10*3/uL Normal 0.0-0.2 [facility]; [facility] Work Phone: Comment on above: PATIENT NOT FASTINGP ERFORMED BY: [facility] Uzdivq5095 [address] RoadDublin [place] [id number] Basophils/100 WBC (Bld) 0 % Normal [facility]; [facility] Work Phone: Comment on above: PATIENT NOT FASTINGP ERFORMED BY: FERN Rosario6370 [address] FelipeErlanger [facility] [id number] Eosinophils (Bld) [#/Vol] 0.1 10*3/uL Normal 0.0-0.4 [facility]; [facility] Work Phone: Comment on above: PATIENT NOT FASTINGP ERFORMED BY: FERN [facility] Ngaxhf8147 [address] [facility] [id number] Eosinophils/100 WBC (Bld) 0 % Normal [facility]; [facility] Work Phone: Comment on above: PATIENT NOT FASTINGP ERFORMED BY: FERN Velasquez Rfusdh8042 [facility] [id number] Erythrocyte distribution width (RBC) [Ratio] 13.0 % Normal 11.6-15.4 [facility]; [facility] Work Phone: Comment on above: PATIENT NOT FASTINGP ERFORMED BY: FERN Velasquez Uhiyox1058 [facility] [id number] Hematocrit (Bld) [Volume fraction] 45.6 % Normal 37.5-51.0 [facility]; [facility] Work Phone: Comment on above: PATIENT NOT FASTINGP ERFORMED BY: FERN Velasquez Vbopit7045 [facility] [facility] [id number] Hemoglobin (Bld) [Mass/Vol] 15.6 g/dL Normal 13.0-17.7 [facility]; [facility] Work Phone: Comment on above: PATIENT NOT FASTINGP ERFORMED BY: FERN [facility] Knkmca5863 [address] [facility] [id number] Immature granulocytes (Bld) [#/Vol] 0.4 10*3/uL Abnormal 0.0-0.1 [facility]; [facility] Work Phone: Comment on above: (An elevated percent age of Immature Granulocytes has not been foundto be clinically significant as a sole clinical predictor of disease.Does NOT include bands or blast cells. associatedphysiological leukocytosis may also show increased immaturegranulocytes without clinical significance.) PATIENT NOT FASTINGP ERFORMED BY: CB [facility] Wlabsv6255 [address] RoadDublin [place] [id number] Immature granulocytes/100 WBC (Bld) 3 % Normal [facility]; [facility] Work Phone: Comment on above: PATIENT NOT FASTINGP ERFORMED BY: CB [facility] Vdkzyw6394 [facility]in [place] [id number] Lymphocytes (Bld) [#/Vol] 2.2 10*3/uL Normal 0.7-3.1 [facility]; [facility] Work Phone: Comment on above: PATIENT NOT FASTINGP ERFORMED BY: [facility] Uguioi8083 [facility] [facility] [id number] Lymphocytes/100 WBC (Bld) 17 % Normal [facility]; [facility] Work Phone: Comment on above: PATIENT NOT FASTINGP ERFORMED BY: [facility] Tbhgpw8909 [facility] [facility] [id number] MCH (RBC) [Entitic mass] 31.0 pg Normal 26.6-33.0 [facility] Internal Medicine; [facility] Work Phone: Comment on above: PATIENT NOT FASTINGP ERFORMED BY: [facility] Szxqfh9037 [facility]in [place] [id number] MCHC (RBC) [Mass/Vol] 34.2 g/dL Normal 31.5-35.7 [facility] prehensive Internal Medicine; [facility] Work Phone: Comment on above: PATIENT NOT FASTINGP ERFORMED BY: CB [facility] Oxwhjj8121 [address] [facility]bl[facility] [place] [id number] MCV (RBC) [Entitic vol] 91 fL Normal 79-97 [facility]; [facility] Work Phone: Comment on above: PATIENT NOT FASTINGP ERFORMED BY: CB [facility] Qrchvn5566 [facility] [facility]in [place] [id number] Monocytes (Bld) [#/Vol] 0.8 10*3/uL Normal 0.1-0.9 [facility]; [facility] Work Phone: Comment on above: PATIENT NOT FASTINGP ERFORMED BY: FERN Rosario6370 [address] RoadDublin [place] [id number] Monocytes/100 WBC (Bld) 6 % Normal [facility]; [facility] Work Phone: Comment on above: PATIENT NOT FASTINGP ERFORMED BY: FERN [facility] Zwnbha2075 [address] RoadDublin [place] [id number] Neutrophils (Bld) [#/Vol] 9.7 10*3/uL Abnormal 1.4-7.0 [facility]; [facility] Work Phone: Comment on above: PATIENT NOT FASTINGP ERFORMED BY: FERN Genet Rosario6370 [address] RoadDublin [place] [id number] Neutrophils/100 WBC (Bld) 74 % Normal [facility]; [facility] Work Phone: Comment on above: PATIENT NOT FASTINGP ERFORMED BY: FERN Genet Rosario6370 [address] RoadDublin [place] [id number] Platelets (Bld) [#/Vol] 687 10*3/uL Abnormal 150-450 [facility]; Comprehensive Internal Medicine Work Phone: Comment on above: PATIENT NOT FASTINGP ERFORMED BY: FERN Ron Zynkrf4752 Joyner RoadDublin [place] [id number] RBC (Bld) [#/Vol] 5.04 10*6/uL Normal 4.14-5.80 Compr ensive Internal Medicine; [facility] Work Phone: Comment on above: PATIENT NOT FASTINGP ERFORMED BY: FERN [facility] Cxnxfb1439 Joyner RoadDublin [place] [id number] WBC (Bld) [#/Vol] 13.1 10*3/uL Abnormal 3.4-10.8 Compr ehensive Internal Medicine; [facility] Work Phone: Comment on above: PATIENT NOT FASTINGP ERFORMED BY: CB [facility] Ukhjhm5532 Joyner RoadDublin [place] [id number] METABOLIC PANEL, COMPREHENSI VE ([id number])Ordered By: Duplicator Punch Operator on 03-26-2021 Albumin [Mass/Vol] 4.1 g/dL Normal 4.0-5.0 [facility] Internal Medicine; [facility] Work Phone: Comment on above: PATIENT NOT FASTINGP ERFORMED BY: CB [facility] Hekupn2936 [address]ner RoadDublin [place] [id number] Albumin/Globulin [Mass ratio] 1.3 {ratio} Normal 1.2-2.2 [facility]; [facility] Work Phone: Comment on above: PATIENT NOT FASTINGP ERFORMED BY: CB [facility] Tegmed4248 [address] RoadDublin [place] [id number] ALP [Catalytic activity/Vol] 94 U/L Normal 44-121 [facility]; [facility] Work Phone: Comment on above: Please note refere nce interval change PATIENT NOT FASTINGP ERFORMED BY: CB [facility] Zwuega1975 [address] RoadDublin [place] [id number] ALT [Catalytic activity/Vol] 55 U/L Abnormal 0-44 [facility]; [facility] Work Phone: Comment on above: PATIENT NOT FASTINGP ERFORMED BY: CB [facility] Qvcvmr1667 [address] RoadDublin [place] [id number] AST [Catalytic activity/Vol] 35 U/L Normal 0-40 [facility]; [facility] Work Phone: Comment on above: PATIENT NOT FASTINGP ERFORMED BY: CB [facility] Bhnmip1971 [address] RoadDublin [place] [id number] Bilirubin [Mass/Vol] 0.4 mg/dL Normal 0.0-1.2 [facility]; [facility] Work Phone: Comment on above: PATIENT NOT FASTINGP ERFORMED BY: CB [facility] Uyqsik0754 [address] RoadDublin [place] [id number] Calcium [Mass/Vol] 9.9 mg/dL Normal 8.7-10.2 [facility]; [facility] Work Phone: Comment on above: PATIENT NOT FASTINGP ERFORMED BY: FERN Velasquez Jebgya5422 Joyner RoadCarolinas ContinueCARE Hospital at [facility] [id number] Chloride [Moles/Vol] 98 mmol/L Normal 96-106 Comp rehensive Internal Medicine; [facility] Work Phone: Comment on above: PATIENT NOT FASTINGP ERFORMED BY: [facility] Zhnjac3840 [address] RoadUnc Hospitals Hillsborough Campusin [place] [id number] CO2 [Moles/Vol] 25 mmol/L Normal 20-29 [facility] Internal Medicine; [facility] Work Phone: Comment on above: PATIENT NOT FASTINGP ERFORMED BY: [facility] Zmnivo9702 [address] [facility] [id number] Creatinine [Mass/Vol] 0.77 mg/dL Normal 0.76-1.27 [facility] prehensive Internal Medicine; [facility] Work Phone: Comment on above: PATIENT NOT FASTINGP ERFORMED BY: [facility] Vuyfzw1102 [address] [facility] [id number] GFR/1.73 sq M.predicted among blacks CKD-EPI (S/P/Bld) [Vol rate/Area] 128 mL/min/1.73 Normal [facility]; [facility] Work Phone: Comment on above: Labsaint [facility] west currently reports eGFR in compliance with the current recommendations of the National Kidney Foundation. [facility] will update reporting as new guidelines are published from the NKF-ASN Task force. PATIENT NOT FASTINGP ERFORMED BY: [facility] Lewbsr2586 [address] [facility] [id number] GFR/1.73 sq M.predicted among non-blacks CKD-EPI (S/P/Bld) [Vol rate/Area] 111 mL/min/1.73 Normal [facility]; [facility] Work Phone: Comment on above: PATIENT NOT FASTINGP ERFORMED BY: [facility] Lxtzpd2609 [address] [facility] [id number] Globulin (S) [Mass/Vol] 3.2 g/dL Normal 1.5-4.5 [facility] Internal Medicine; [facility] Medicine Work Phone: Comment on above: PATIENT NOT FASTINGP ERFORMED BY: FERN LabKarolina Rosario6370 [address] RoadDublin [place] [id number] Glucose [Mass/Vol] 192 mg/dL Abnormal 65-99 [facility] Internal Medicine; [facility] Medicine Work Phone: Comment on above: PATIENT NOT FASTINGP ERFORMED BY: CB [facility] Dvkdqz3453 [address] RoadDublin [place] [id number] Potassium [Moles/Vol] 4.9 mmol/L Normal 3.5-5.2 [facility] Internal Medicine; [facility] Medicine Work Phone: Comment on above: PATIENT NOT FASTINGP ERFORMED BY: FERN Maciaslin6370 [address]ner RoadUnc Hospitals Hillsborough Campusin [place] [id number] Protein [Mass/Vol] 7.3 g/dL Normal 6.0-8.5 [facility] Internal Medicine; [facility] Work Phone: Comment on above: PATIENT NOT FASTINGP ERFORMED BY: FERN LabCotrent MaciasGvhbbm5614 Joyenr RoadDublin [place] [id number] Sodium [Moles/Vol] 137 mmol/L Normal 134-144 [facility] Internal Medicine; [facility] Medicine Work Phone: Comment on above: PATIENT NOT FASTINGP ERFORMED BY: FERN LabLayrp Vbnpom0469 Joy[address] Roadblin [place] [id number] Urea nitrogen [Mass/Vol] 12 mg/dL Normal 6-24 [facility]; [facility] Work Phone: Comment on above: PATIENT NOT FASTINGP ERFORMED BY: FERN [facility] Pykkdm0925 [address] RoadDublin [place] [id number] Urea nitrogen/Creatinine [Mass ratio] 16 mg/mg Normal 9-20 [facility]; [facility] Work Phone: Comment on above: PATIENT NOT FASTINGP ERFORMED BY: FERN [facility] Immiif1251 [address] [facility]in [place] [id number] C-REACT PROT HIGH SENS(hsCRP ) (99994)Ordered By: Duplicator Punch Operator on 07-08-2020 CRP High sensitivity method [Mass/Vol] 3.61 mg/L Abnormal 0.00-3.00 [facility]; [facility] Work Phone: Comment on above: Relative Risk for Fu ture Cardiovascular Event Low <1.00 Average 1.00 - 3.00 High >3.00 PATIENT WAS FASTINGP ERFORMED BY: FERN [facility] Fupscz6486 [facility] [id number] LIPID PANEL (65632)Ordered B y: Duplicator Punch Operator on 07-08-2020 Cholesterol [Mass/Vol] 128 mg/dL Normal 100-199 [facility] centerensive Internal Medicine; [facility] Work Phone: Comment on above: PATIENT WAS FASTINGP ERFORMED BY: FERN LabHuaqi Information Digital[address] Radient PharmaceuticalsCarolinas ContinueCARE [facility] [id number] Cholesterol in HDL [Mass/Vol] 45 mg/dL Normal [facility]; [facility] Work Phone: Comment on above: PATIENT WAS FASTINGP ERFORMED BY: FERN LabLiveNinja Pnqcik4843 [facility] [id number] Cholesterol in LDL/Cholesterol in HDL [Mass ratio] 1.4 {ratio} Normal 0.0-3.6 [facility]; [facility] Work Phone: Comment on above: LDL/HDL Ratio Men Wo men 1/2 Avg.Risk 1.0 1.5 Avg.Risk 3.6 3.2 2X Avg.Risk 6.2 5.0 3X Avg.Risk 8.0 6.1 PATIENT WAS FASTINGP ERFORMED BY: FERN [facility] Xcjzyp6660 [facility] [id number] Triglyceride [Mass/Vol] 94 mg/dL Normal 0-149 [facility]; [facility] Work Phone: Comment on above: PATIENT WAS FASTINGP ERFORMED BY: FERN [facility] Kszacn3964 [facility] [id number] LIPID PANEL (38520) 65 mg/dL Normal 0-99 Compr ehensive Internal Medicine; [facility] Medicine Work Phone: Comment on above: PATIENT WAS FASTINGP ERFORMED BY: FERN [facility] Eeisuw3769 [address] RoadDublin [place] [id number] LIPID PANEL (57218) 18 mg/dL Normal 5-40 [facility] Internal Medicine; [facility] Internal Medicine Work Phone: Comment on above: PATIENT WAS FASTINGP ERFORMED BY: CB [facility] Yzmxmd9064 [address] Roadblin [place] [id number] LIPID PANEL (61776) 1.4 {ratio} Normal 0.0-3.6 [facility] Internal Medicine; [facility] Internal Medicine Work Phone: Comment on above: LDL/HDL Ratio Men Wo men 1/2 Avg.Risk 1.0 1.5 Avg.Risk 3.6 3.2 2X Avg.Risk 6.2 5.0 3X Avg.Risk 8.0 6.1 PATIENT WAS FASTINGP ERFORMED BY: FERN [facility] Pdzpui2581 [address] [facility] [id number] METABOLIC PANEL, COMPREHENSI VE (53519)Ordered By: Duplicator Punch Operator on 07-08-2020 Albumin [Mass/Vol] 5.0 g/dL Normal 4.0-5.0 [facility] Internal Medicine; [facility] Work Phone: Comment on above: PATIENT WAS FASTINGP ERFORMED BY: FERN [facility] Lbqbyv5834 [address] [facility]in [place] [id number] Albumin/Globulin [Mass ratio] 1.9 {ratio} Normal 1.2-2.2 [facility] Internal Medicine; [facility] Medicine Work Phone: Comment on above: PATIENT WAS FASTINGP ERFORMED BY: CB [facility] Rceymk9973 [address] RoadDublin [place] [id number] ALP [Catalytic activity/Vol] 103 [iU]/L Normal 39-117 [facility] Internal Medicine; [facility] Medicine Work Phone: Comment on above: PATIENT WAS FASTINGP ERFORMED BY: FERN [facility] Tirinb0401 [address] RoadDublin [place] [id number] ALP [Catalytic activity/Vol] 103 U/L Normal 39-117 [facility]; [facility] Work Phone: Comment on above: PATIENT WAS FASTINGP ERFORMED BY: FERN LabCotrent Mbkkbw1333 [address] RoadDublin [place] [id number] ALT [Catalytic activity/Vol] 30 [iU]/L Normal 0-44 [facility]; [facility] Work Phone: Comment on above: PATIENT WAS FASTINGP ERFORMED BY: FERN [facility] Equaec9337 [address] RoadDublin [place] [id number] ALT [Catalytic activity/Vol] 30 U/L Normal 0-44 [facility]; [facility] Work Phone: Comment on above: PATIENT WAS FASTINGP ERFORMED BY: FERN LabKarolina MaciasGglsvx9154 [address] RoadDublin [place] [id number] AST [Catalytic activity/Vol] 22 [iU]/L Normal 0-40 [facility]; [facility] Work Phone: Comment on above: PATIENT WAS FASTINGP ERFORMED BY: FERN LabLay Xipatm7124 [address] RoadDublin [place] [id number] AST [Catalytic activity/Vol] 22 U/L Normal 0-40 [facility]; [facility] Work Phone: Comment on above: PATIENT WAS FASTINGP ERFORMED BY: FERN LabCotrent Uufqdz7353 [address] RoadDublin [place] [id number] Bilirubin [Mass/Vol] 0.5 mg/dL Normal 0.0-1.2 Comp [facility]ensive [facility]; [facility] Work Phone: Comment on above: PATIENT WAS FASTINGP ERFORMED BY: FERN [facility] Hufacq4889 [address] RoadDublin [place] [id number] Calcium [Mass/Vol] 9.6 mg/dL Normal 8.7-10.2 [facility] Internal Medicine; [facility] Work Phone: Comment on above: PATIENT WAS FASTINGP ERFORMED BY: CB [facility] Nwydhk6132 [address] RoadDublin [place] [id number] Chloride [Moles/Vol] 103 mmol/L Normal 96-106 Comp rehensive Internal Medicine; [facility] Work Phone: Comment on above: PATIENT WAS FASTINGP ERFORMED BY: CB [facility] Bdvjhc8714 [address] RoadDublin [place] [id number] CO2 [Moles/Vol] 22 mmol/L Normal 20-29 [facility] Internal Medicine; [facility] Internal Medicine Work Phone: Comment on above: PATIENT WAS FASTINGP ERFORMED BY: CB [facility] Tngavy2185 [address]ner RoadCarolinas ContinueCARE Hospital at [facility] [id number] Creatinine [Mass/Vol] 0.89 mg/dL Normal 0.76-1.27 [facility]; [facility] Work Phone: Comment on above: PATIENT WAS FASTINGP ERFORMED BY: CB [facility] Zteodu1940 [address]ner RoadUnc Hospitals Hillsborough Campusin [place] [id number] GFR/1.73 sq M predicted among blacks CKD-EPI (S/P/Bld) [Vol rate/Area] 122 mL/min/1.73 Normal [facility]; [facility] Work Phone: Comment on above: PATIENT WAS FASTINGP ERFORMED BY: CB [facility] Xeainq8710 [address] RoadDuin [place] [id number] GFR/1.73 sq M predicted among non-blacks CKD-EPI (S/P/Bld) [Vol rate/Area] 105 mL/min/1.73 Normal [facility]; [facility] Work Phone: Comment on above: PATIENT WAS FASTINGP ERFORMED BY: CB [facility] Ntnfzu2539 [address] [facility] [id number] Globulin (S) [Mass/Vol] 2.7 g/dL Normal 1.5-4.5 [facility]; [facility] Work Phone: Comment on above: PATIENT WAS FASTINGP ERFORMED BY: CB [facility] Diklzn0666 [address] [facility]in [place] [id number] Glucose [Mass/Vol] 90 mg/dL Normal 65-99 [facility] Internal Medicine; [facility] Internal Medicine Work Phone: Comment on above: PATIENT WAS FASTINGP ERFORMED BY: FERN [facility] Mcgoyb3909 [address] RoadDublin [place] [id number] Potassium [Moles/Vol] 4.3 mmol/L Normal 3.5-5.2 [facility]; [facility] Work Phone: Comment on above: PATIENT WAS FASTINGP ERFORMED BY: CB [facility] Qjlolf6195 [address] RoadDublin [place] [id number] Protein [Mass/Vol] 7.7 g/dL Normal 6.0-8.5 [facility] Internal Medicine; [facility] Work Phone: Comment on above: PATIENT WAS FASTINGP ERFORMED BY: CB [facility] Yuyznl9995 [address] RoadDublin [place] [id number] Sodium [Moles/Vol] 140 mmol/L Normal 134-144 [facility] Internal Medicine; [facility] Medicine Work Phone: Comment on above: PATIENT WAS FASTINGP ERFORMED BY: CB [facility] Kwunup5490 [address] RoadDublin [place] [id number] Urea nitrogen [Mass/Vol] 7 mg/dL Normal 6-24 [facility] Internal Medicine; [facility] Work Phone: Comment on above: PATIENT WAS FASTINGP ERFORMED BY: CB [facility] Hugkkr3446 [address] RoadDublin [place] [id number] Urea nitrogen/Creatinine [Mass ratio] 8 mg/mg Abnormal 9-20 [facility]; [facility] Work Phone: Comment on above: PATIENT WAS FASTINGP ERFORMED BY: CB [facility] Lqxyvv1785 [address] RoadDublin [place] [id number] Vitamin D Hydroxy (11767)Ord ered By: Duplicator Punch Operator on 07-08-2020 25-Hydroxyvitamin D2+25-Hydroxyvitamin D3 [Mass/Vol] 41.0 ng/mL Normal 30.0-100.0 [facility]; [facility] Work Phone: Comment on above: Vitamin D deficiency has been defined by the [place] ofMedicine and an Endocrine Society practice guideline as alevel of serum 25-OH vitamin D less than 20 ng/mL (1,2).The Endocrine Society went on to further define vitamin Dinsufficiency as a level between 21 and 29 ng/mL (2).1. IOM ([place] of Medicine). 2010. Dietary reference intakes for calcium and D. [place]: The National Academies Press.2. Aurelia MF, Freddy BENAVIDES, Emi AZAR, et al. Evaluation, treatment, and prevention of vitamin D deficiency: an Endocrine Society clinical practice guideline. JCEM. 2010; 96(7):1911-30. PATIENT WAS FASTINGP ERFORMED BY: TrivnetK[place] 4941470 [facility] [id number] CBC W/AUTO DIFF WBC (30461)O rdered By: Duplicator Punch Operator on 03-23-2020 Basophils (Bld) [#/Vol] 0.0 {x10E3/uL} Normal 0.0-0.2 [facility] Work Phone: Comment on above: PATIENT WAS FASTINGP ERFORMED BY: [facility]opeDet[facility]ceiving Hospital[address] [place] [address] [id number] Information: NURSE DRAW Basophils (Bld) [#/Vol] 0.0 10*3/uL Normal 0.0-0.2 [facility]; [facility] Work Phone: Comment on above: PATIENT WAS FASTINGP ERFORMED BY: [facility]opeDet[facility] Hospital[address] [place] [address] [id number] Information: NURSE DRAW Basophils/100 WBC (Bld) 1 % Normal [facility] Work Phone: Comment on above: PATIENT WAS FASTINGP ERFORMED BY: Lancope[address] [id number] Information: NURSE DRAW Eosinophils (Bld) [#/Vol] 0.4 {x10E3/uL} Normal 0.0-0.4 [facility] Work Phone: Comment on above: PATIENT WAS FASTINGP ERFORMED BY: [address] [id number] Information: NURSE DRAW Eosinophils (Bld) [#/Vol] 0.4 10*3/uL Normal 0.0-0.4 [facility]; [facility] Work Phone: Comment on above: PATIENT WAS FASTINGP ERFORMED BY: FERN Perez[address] [id number] Information: NURSE DRAW Eosinophils/100 WBC (Bld) 4 % Normal [facility] Work Phone: Comment on above: PATIENT WAS FASTINGP ERFORMED BY: [address] [id number] Information: NURSE DRAW Erythrocyte distribution width (RBC) [Ratio] 13.0 % Normal 11.6-15.4 [facility] Work Phone: Comment on above: PATIENT WAS FASTINGP ERFORMED BY: [address] [id number] Information: NURSE DRAW Hematocrit (Bld) [Volume fraction] 45.7 % Normal 37.5-51.0 [facility] Work Phone: Comment on above: PATIENT WAS FASTINGP ERFORMED BY: [address] [id number] Information: NURSE DRAW Hemoglobin (Bld) [Mass/Vol] 15.8 g/dL Normal 13.0-17.7 [facility] Work Phone: Comment on above: PATIENT WAS FASTINGP ERFORMED BY: [address] [id number] Information: NURSE DRAW Immature granulocytes (Bld) [#/Vol] 0.0 {x10E3/uL} Normal 0.0-0.1 [facility] Work Phone: Comment on above: PATIENT WAS FASTINGP ERFORMED BY: [address] [id number] Information: NURSE DRAW Immature granulocytes (Bld) [#/Vol] 0.0 10*3/uL Normal 0.0-0.1 [facility]; [facility] Work Phone: Comment on above: PATIENT WAS FASTINGP ERFORMED BY: FERN [place] [id number] [facility] [id number] Information: NURSE DRAW Immature granulocytes/100 WBC (Bld) 0 % Normal [facility] Work Phone: Comment on above: PATIENT WAS FASTINGP ERFORMED BY: FERN [address] [id number] Information: NURSE DRAW Lymphocytes (Bld) [#/Vol] 2.6 {x10E3/uL} Normal 0.7-3.1 [facility] Internal Medicine Work Phone: Comment on above: PATIENT WAS FASTINGP ERFORMED BY: FERN [address] [id number] Information: NURSE DRAW Lymphocytes (Bld) [#/Vol] 2.6 10*3/uL Normal 0.7-3.1 [facility]; [facility] Work Phone: Comment on above: PATIENT WAS FASTINGP ERFORMED BY: [address] [id number] Information: NURSE DRAW Lymphocytes/100 WBC (Bld) 29 % Normal [facility] Internal Medicine Work Phone: Comment on above: PATIENT WAS FASTINGP ERFORMED BY: FERN [address] [id number] Information: NURSE DRAW MCH (RBC) [Entitic mass] 31.6 pg Normal 26.6-33.0 [facility] Internal Medicine Work Phone: Comment on above: PATIENT WAS FASTINGP ERFORMED BY: [address] [id number] Information: NURSE DRAW MCHC (RBC) [Mass/Vol] 34.6 g/dL Normal 31.5-35.7 [facility] Internal Medicine Work Phone: Comment on above: PATIENT WAS FASTINGP ERFORMED BY: [address] [id number] Information: NURSE DRAW MCV (RBC) [Entitic vol] 91 fL Normal 79-97 [facility] Work Phone: Comment on above: PATIENT WAS FASTINGP ERFORMED BY: FERN Ron Xqkpje0049 [facility] [id number] Information: NURSE DRAW Monocytes (Bld) [#/Vol] 0.6 {x10E3/uL} Normal 0.1-0.9 [facility] Work Phone: Comment on above: PATIENT WAS FASTINGP ERFORMED BY: [address] [id number] Information: NURSE DRAW Monocytes (Bld) [#/Vol] 0.6 10*3/uL Normal 0.1-0.9 [facility]; [facility] Work Phone: Comment on above: PATIENT WAS FASTINGP ERFORMED BY: [address] [id number] Information: NURSE DRAW Monocytes/100 WBC (Bld) 7 % Normal [facility] Work Phone: Comment on above: PATIENT WAS FASTINGP ERFORMED BY: [address] [id number] Information: NURSE DRAW Neutrophils (Bld) [#/Vol] 5.1 {x10E3/uL} Normal 1.4-7.0 [facility] Work Phone: Comment on above: PATIENT WAS FASTINGP ERFORMED BY: [address] [id number] Information: NURSE DRAW Neutrophils (Bld) [#/Vol] 5.1 10*3/uL Normal 1.4-7.0 [facility]; [facility] Work Phone: Comment on above: PATIENT WAS FASTINGP ERFORMED BY: [address] [id number] Information: NURSE DRAW Neutrophils/100 WBC (Bld) 59 % Normal [facility] Work Phone: Comment on above: PATIENT WAS FASTINGP ERFORMED BY: FERN ChrisKarolina MaciasHmxlat5979 [facility] [id number] Information: NURSE DRAW Platelets (Bld) [#/Vol] 256 {x10E3/uL} Normal 150-450 [facility] Internal Medicine Work Phone: Comment on above: PATIENT WAS FASTINGP ERFORMED BY: FERN [facility]John [facility] Ujwlhe4551 [facility] [id number] Information: NURSE DRAW Platelets (Bld) [#/Vol] 256 10*3/uL Normal 150-450 [facility]; [facility] Work Phone: Comment on above: PATIENT WAS FASTINGP ERFORMED BY: FERN ChrisKarolina MaciasRxkvug0028 [facility] [id number] Information: NURSE DRAW RBC (Bld) [#/Vol] 5.00 {x10E6/uL} Normal 4.14-5.80 [facility] Internal Medicine Work Phone: Comment on above: PATIENT WAS FASTINGP ERFORMED BY: FERN [facility] Mladuo7587 [facility] [id number] Information: NURSE DRAW RBC (Bld) [#/Vol] 5.00 10*6/uL Normal 4.14-5.80 [facility] Internal Medicine; [facility] Work Phone: Comment on above: PATIENT WAS FASTINGP ERFORMED BY: FERN [facility] HospitalLay Afwvpk7806 [facility] [id number] Information: NURSE DRAW WBC (Bld) [#/Vol] 8.7 {x10E3/uL} Normal 3.4-10.8 [facility] Internal Medicine Work Phone: Comment on above: PATIENT WAS FASTINGP ERFORMED BY: FERN [place] [id number] [facility] [id number] Information: NURSE DRAW WBC (Bld) [#/Vol] 8.7 10*3/uL Normal 3.4-10.8 [facility] Internal Medicine; [facility] Work Phone: Comment on above: PATIENT WAS FASTINGP ERFORMED BY: CB [facility] Cpkbee0661 [address] RoadDublin [place] [id number] Information: NURSE DRAW METABOLIC PANEL, JAMAL AYERS (11134)Ordered By: Duplicator Punch Operator on 03-23-2020 Albumin [Mass/Vol] 4.5 g/dL Normal 4.0-5.0 [facility] Internal Medicine Work Phone: Comment on above: PATIENT WAS FASTINGP ERFORMED BY: CB [facility] Jffviu6120 [address] RoadDublin [place] [id number] Albumin/Globulin [Mass ratio] 1.7 {ratio} Normal 1.2-2.2 [facility] Work Phone: Comment on above: PATIENT WAS FASTINGP ERFORMED BY: CB [facility] Kqqgks0443 [address] RoadDublin [place] [id number] ALP [Catalytic activity/Vol] 106 [iU]/L Normal 39-117 [facility] Work Phone: Comment on above: PATIENT WAS FASTINGP ERFORMED BY: CB [facility] Osxlcz7692 [address] RoadDublin [place] [id number] ALP [Catalytic activity/Vol] 106 U/L Normal 39-117 [facility]; [facility] Work Phone: Comment on above: PATIENT WAS FASTINGP ERFORMED BY: CB [facility] Rascyl5833 [address] RoadDublin [place] [id number] ALT [Catalytic activity/Vol] 23 [iU]/L Normal 0-44 [facility] Work Phone: Comment on above: PATIENT WAS FASTINGP ERFORMED BY: CB [facility] Wgrfrv4945 [address] RoadDublin [place] [id number] ALT [Catalytic activity/Vol] 23 U/L Normal 0-44 [facility]; [facility] Work Phone: Comment on above: PATIENT WAS FASTINGP ERFORMED BY: CB [facility] Etmpqj9582 [address] RoadDublin [place] [id number] AST [Catalytic activity/Vol] 18 [iU]/L Normal 0-40 [facility] Work Phone: Comment on above: PATIENT WAS FASTINGP ERFORMED BY: FERN [facility] Yxpyfg7595 [address] RoadDublin [place] [id number] AST [Catalytic activity/Vol] 18 U/L Normal 0-40 [facility]; [facility] Work Phone: Comment on above: PATIENT WAS FASTINGP ERFORMED BY: CB [facility] Cujvpa0237 [address] RoadDublin [place] [id number] Bilirubin [Mass/Vol] 0.4 mg/dL Normal 0.0-1.2 [facility] rehensive Internal Medicine Work Phone: Comment on above: PATIENT WAS FASTINGP ERFORMED BY: FERN [facility] Maturo6428 [address] RoadDublin [place] [id number] Calcium [Mass/Vol] 9.6 mg/dL Normal 8.7-10.2 [facility] Internal Medicine Work Phone: Comment on above: PATIENT WAS FASTINGP ERFORMED BY: FERN [facility] Nhxmki1101 [address] RoadDublin [place] [id number] Chloride [Moles/Vol] 102 mmol/L Normal 96-106 [facility] Work Phone: Comment on above: PATIENT WAS FASTINGP ERFORMED BY: FERN [facility] Anaoop8249 [address] RoadDublin [place] [id number] CO2 [Moles/Vol] 25 mmol/L Normal 20-29 [facility] Internal Medicine Work Phone: Comment on above: PATIENT WAS FASTINGP ERFORMED BY: CB [facility] Mtcdma3604 [address] RoadDublin [place] [id number] Creatinine [Mass/Vol] 0.89 mg/dL Normal 0.76-1.27 [facility] Work Phone: Comment on above: PATIENT WAS FASTINGP ERFORMED BY: CB [facility] Pbcahy3246 [address] RoadDublin [place] [id number] GFR/1.73 sq M predicted among blacks CKD-EPI (S/P/Bld) [Vol rate/Area] 122 mL/min/1.73 Normal [facility] Internal Medicine Work Phone: Comment on above: PATIENT WAS FASTINGP ERFORMED BY: FERN [facility] Arybei3072 [address] RoadDublin [place] [id number] GFR/1.73 sq M predicted among non-blacks CKD-EPI (S/P/Bld) [Vol rate/Area] 105 mL/min/1.73 Normal [facility] Internal Medicine Work Phone: Comment on above: PATIENT WAS FASTINGP ERFORMED BY: [facility] Khpjmo1927 [address] Roadblin [place] [id number] Globulin (S) [Mass/Vol] 2.7 g/dL Normal 1.5-4.5 [facility] Internal Medicine Work Phone: Comment on above: PATIENT WAS FASTINGP ERFORMED BY: [facility] Yqdunw2907 [address] RoadDublin [place] [id number] Glucose [Mass/Vol] 135 mg/dL Abnormal 65-99 [facility] Internal Medicine Work Phone: Comment on above: PATIENT WAS FASTINGP ERFORMED BY: [facility] Vfkdtt1870 [address] Roadblin [place] [id number] Potassium [Moles/Vol] 4.4 mmol/L Normal 3.5-5.2 [facility] Internal Medicine Work Phone: Comment on above: PATIENT WAS FASTINGP ERFORMED BY: [facility] Zjksvx6786 [address] RoadDublin [place] [id number] Protein [Mass/Vol] 7.2 g/dL Normal 6.0-8.5 [facility] Internal Medicine Work Phone: Comment on above: PATIENT WAS FASTINGP ERFORMED BY: [facility] Yycupr5501 [address] RoadDublin [place] [id number] Sodium [Moles/Vol] 141 mmol/L Normal 134-144 [facility] Internal Medicine Work Phone: Comment on above: PATIENT WAS FASTINGP ERFORMED BY: [facility] Lixcng0474 [address] RoadDublin [place] [id number] Urea nitrogen [Mass/Vol] 10 mg/dL Normal 6-24 [facility] Internal Medicine Work Phone: Comment on above: PATIENT WAS FASTINGP ERFORMED BY: LabOmni-ID Myoiuv2876 [address] PathARErlanger [facility] [id number] Urea nitrogen/Creatinine [Mass ratio] 11 mg/mg Normal 9-20 [facility] Work Phone: Comment on above: PATIENT WAS FASTINGP ERFORMED BY: LabOm[facility] Fttuhr7536 Versie Christian CompanionErlanger [facility] [id number] MICROALBUMINOrdered By: Syst em Plywood And Veneer Repairer on 03-23-2020 Albumin DL <= 20 mg/L (U) [Mass/Vol] 10.0 ug/mL Normal [facility] Work Phone: Comment on above: PATIENT WAS FASTINGP ERFORMED BY: LabOm[facility] Pvease0076 [address] Radient PharmaceuticalsCarolinas ContinueCARE [facility] [id number] Albumin/Creatinine (U) [Mass ratio] 8 {mg/g_creat} Normal 0-29 [facility] Work Phone: Comment on above: Normal: 0 - 29 Moder ately increased: 30 - 300 Severely increased: >300 Please note reference interval change PATIENT WAS FASTINGP ERFORMED BY: [facility] Kxxwvt0582 [address] PathARErlanger [facility] [id number] Creatinine (U) [Mass/Vol] 129.9 mg/dL Normal [facility] Work Phone: Comment on above: PATIENT WAS FASTINGP ERFORMED BY: Lab[facility] Tuosri4496 [address] Radient PharmaceuticalsCarolinas ContinueC[facility] [id number] HgA1C , Office ([id number])Ordere d By: Esthela Briceño on 12-09-2019 HbA1c (Bld) [Mass fraction] 7.2 % Abnormal 4.6 - 7.1 [facility] Work Phone: Comment on above: poked him before I r ealized he sees endo - sorry CBC W/AUTO DIFF WBC ([id number])O rdered By: Duplicator Punch Operator on 11-26-2019 Basophils (Bld) [#/Vol] 0.1 {x10E3/uL} Normal 0.0-0.2 [facility] Work Phone: Comment on above: PATIENT WAS FASTINGP ERFORMED BY: [facility]6370 [address] Roadblin [place] [id number] Basophils (Bld) [#/Vol] 0.1 10*3/uL Normal 0.0-0.2 [facility]; [facility] Work Phone: Comment on above: PATIENT WAS FASTINGP ERFORMED BY: [facility] Xulxen3327 [address] Roadblin [place] [id number] Basophils/100 WBC (Bld) 1 % Normal [facility] Work Phone: Comment on above: PATIENT WAS FASTINGP ERFORMED BY: [facility]6[address] RoadUnc Hospitals Hillsborough Campusin [place] [id number] Eosinophils (Bld) [#/Vol] 0.1 {x10E3/uL} Normal 0.0-0.4 [facility] Work Phone: Comment on above: PATIENT WAS FASTINGP ERFORMED BY: [facility] Erktfz6131 [address] [facility] [id number] Eosinophils (Bld) [#/Vol] 0.1 10*3/uL Normal 0.0-0.4 [facility]; [facility] Work Phone: Comment on above: PATIENT WAS FASTINGP ERFORMED BY: [facility] [facility] Centerin [place] [id number] Eosinophils/100 WBC (Bld) 1 % Normal [facility] Work Phone: Comment on above: PATIENT WAS FASTINGP ERFORMED BY: [facility]6[address] [facility] [id number] Erythrocyte distribution width (RBC) [Ratio] 13.2 % Normal 11.6-15.4 [facility] Work Phone: Comment on above: PATIENT WAS FASTINGP ERFORMED BY: [facility]6[address] [facility] [id number] Hematocrit (Bld) [Volume fraction] 48.2 % Normal 37.5-51.0 [facility] Work Phone: Comment on above: PATIENT WAS FASTINGP ERFORMED BY: [place] 43588[address] [facility] [id number] Hemoglobin (Bld) [Mass/Vol] 16.1 g/dL Normal 13.0-17.7 [facility] Work Phone: Comment on above: PATIENT WAS FASTINGP ERFORMED BY: [facility]6[address] [facility] [id number] Immature granulocytes (Bld) [#/Vol] 0.0 {x10E3/uL} Normal 0.0-0.1 [facility] Work Phone: Comment on above: PATIENT WAS FASTINGP ERFORMED BY: [place] 4358870 Joyner RoadUnc Hospitals Hillsborough Campusin [place] [id number] Immature granulocytes (Bld) [#/Vol] 0.0 10*3/uL Normal 0.0-0.1 [facility]; [facility] Work Phone: Comment on above: PATIENT WAS FASTINGP ERFORMED BY: [place] 4358870 [address] [facility] [id number] Immature granulocytes/100 WBC (Bld) 0 % Normal [facility] Work Phone: Comment on above: PATIENT WAS FASTINGP ERFORMED BY: [place] 4358870 [address] [facility] [id number] Lymphocytes (Bld) [#/Vol] 2.4 {x10E3/uL} Normal 0.7-3.1 [facility] Work Phone: Comment on above: PATIENT WAS FASTINGP ERFORMED BY: [place] 4358870 [address] RoadCarolinas ContinueCARE Hospital [facility] [id number] Lymphocytes (Bld) [#/Vol] 2.4 10*3/uL Normal 0.7-3.1 [facility]; [facility] Work Phone: Comment on above: PATIENT WAS FASTINGP ERFORMED BY: [place] 4358870 [address] Roadblin [place] [id number] Lymphocytes/100 WBC (Bld) 28 % Normal [facility] Work Phone: Comment on above: PATIENT WAS FASTINGP ERFORMED BY: FERN [facility] Vnorhi5302 [address] RoadDublin [place] [id number] MCH (RBC) [Entitic mass] 31.0 pg Normal 26.6-33.0 [facility] Internal Medicine Work Phone: Comment on above: PATIENT WAS FASTINGP ERFORMED BY: LabCoRehoboth McKinley Christian Health Care ServicesWfiyvn2058 [address] Roadblin [place] [id number] MCHC (RBC) [Mass/Vol] 33.4 g/dL Normal 31.5-35.7 [facility] Internal Medicine Work Phone: Comment on above: PATIENT WAS FASTINGP ERFORMED BY: [facility] Vpkjys4278 [address] [facility] Hospitalblin [place] [id number] MCV (RBC) [Entitic vol] 93 fL Normal 79-97 [facility] Internal Medicine Work Phone: Comment on above: PATIENT WAS FASTINGP ERFORMED BY: LabDet[facility]6370 [address] RoadUnc Hospitals Hillsborough Campusin [place] [id number] Monocytes (Bld) [#/Vol] 0.7 {x10E3/uL} Normal 0.1-0.9 [facility] Work Phone: Comment on above: PATIENT WAS FASTINGP ERFORMED BY: [facility] Gyxyvd9643 [address] Roadblin [place] [id number] Monocytes (Bld) [#/Vol] 0.7 10*3/uL Normal 0.1-0.9 [facility]; [facility] Work Phone: Comment on above: PATIENT WAS FASTINGP ERFORMED BY: [facility] Dljwba4227 [address] RoadDublin [place] [id number] Monocytes/100 WBC (Bld) 8 % Normal [facility] Work Phone: Comment on above: PATIENT WAS FASTINGP ERFORMED BY: [facility] Xxhzeh7330 [address] [facility] Hospitalblin [place] [id number] Neutrophils (Bld) [#/Vol] 5.3 {x10E3/uL} Normal 1.4-7.0 [facility] Work Phone: Comment on above: PATIENT WAS FASTINGP ERFORMED BY: CB [facility] Nxfskt0614 [address] RoadDublin [place] [id number] Neutrophils (Bld) [#/Vol] 5.3 10*3/uL Normal 1.4-7.0 [facility]; [facility] Work Phone: Comment on above: PATIENT WAS FASTINGP ERFORMED BY: CB [facility] Qzisge0103 [address] RoadDublin [place] [id number] Neutrophils/100 WBC (Bld) 62 % Normal [facility] Work Phone: Comment on above: PATIENT WAS FASTINGP ERFORMED BY: CB [facility] Tjilgl3435 [address] RoadDublin [place] [id number] Platelets (Bld) [#/Vol] 252 {x10E3/uL} Normal 150-450 [facility] Work Phone: Comment on above: PATIENT WAS FASTINGP ERFORMED BY: CB [facility] Gdinlk6038 [address] RoadDublin [place] [id number] Platelets (Bld) [#/Vol] 252 10*3/uL Normal 150-450 [facility]; [facility] Work Phone: Comment on above: PATIENT WAS FASTINGP ERFORMED BY: CB [facility] Balxzb9753 [address] RoadDublin [place] [id number] RBC (Bld) [#/Vol] 5.19 {x10E6/uL} Normal 4.14-5.80 [facility] Internal Medicine Work Phone: Comment on above: PATIENT WAS FASTINGP ERFORMED BY: CB [facility] Jxqsnd7812 [address] RoadDublin [place] [id number] RBC (Bld) [#/Vol] 5.19 10*6/uL Normal 4.14-5.80 [facility] Internal Medicine; [facility] Work Phone: Comment on above: PATIENT WAS FASTINGP ERFORMED BY: CB [facility] Lymktk8260 [address] RoadDublin [place] [id number] WBC (Bld) [#/Vol] 8.6 {x10E3/uL} Normal 3.4-10.8 [facility] Work Phone: Comment on above: PATIENT WAS FASTINGP ERFORMED BY: FERN [facility] Pmkmwd8194 [address] RoadDublin [place] [id number] WBC (Bld) [#/Vol] 8.6 10*3/uL Normal 3.4-10.8 [facility] Internal Medicine; [facility] Work Phone: Comment on above: PATIENT WAS FASTINGP ERFORMED BY: FERN [facility] Mqolfr4135 [address] RoadDublin [place] [id number] LIPID PANEL ([id number])Ordered B y: Duplicator Punch Operator on 11-26-2019 Cholesterol [Mass/Vol] 149 mg/dL Normal 100-199 [facility] Work Phone: Comment on above: PATIENT WAS FASTINGP ERFORMED BY: FERN LabKarolina MaciasJygelk0780 [address] RoadDublin [place] [id number] Cholesterol in HDL [Mass/Vol] 39 mg/dL Abnormal [facility] Work Phone: Comment on above: PATIENT WAS FASTINGP ERFORMED BY: FERN LabCotrent Lqsmhj0090 [address] RoadDublin [place] [id number] Cholesterol in LDL [Mass/Vol] 86 mg/dL Normal 0-99 [facility] Work Phone: Comment on above: PATIENT WAS FASTINGP ERFORMED BY: FERN LabCotrent Hpgnzk9148 [address] RoadDublin [place] [id number] Cholesterol in LDL/Cholesterol in HDL [Mass ratio] 2.2 {ratio} Normal 0.0-3.6 [facility] Work Phone: Comment on above: LDL/HDL Ratio Men Wo men 1/2 Avg.Risk 1.0 1.5 Avg.Risk 3.6 3.2 2X Avg.Risk 6.2 5.0 3X Avg.Risk 8.0 6.1 PATIENT WAS FASTINGP ERFORMED BY: FERN [facility] Uurrlp0775 [address] RoadDublin [place] [id number] Cholesterol in VLDL [Mass/Vol] 24 mg/dL Normal 5-40 [facility] Work Phone: Comment on above: PATIENT WAS FASTINGP ERFORMED BY: CB [facility] Davrpm8091 [address] RoadDublin [place] [id number] Triglyceride [Mass/Vol] 121 mg/dL Normal 0-149 [facility] Work Phone: Comment on above: PATIENT WAS FASTINGP ERFORMED BY: CB [facility] Qubjrk1732 [address] RoadDublin [place] [id number] METABOLIC PANEL, COMPREHENSI VE ([id number])Ordered By: Duplicator Punch Operator on 11-26-2019 Albumin [Mass/Vol] 4.6 g/dL Normal 4.0-5.0 [facility] Internal Medicine Work Phone: Comment on above: PATIENT WAS FASTINGP ERFORMED BY: FERN [facility] Mjaqph8433 [address] RoadDublin [place] [id number] Albumin/Globulin [Mass ratio] 1.6 {ratio} Normal 1.2-2.2 [facility] Work Phone: Comment on above: PATIENT WAS FASTINGP ERFORMED BY: CB [facility] Kmktac2658 [address] RoadDublin [place] [id number] ALP [Catalytic activity/Vol] 101 [iU]/L Normal 39-117 [facility] Work Phone: Comment on above: PATIENT WAS FASTINGP ERFORMED BY: CB [facility] Xdeofk7100 [address] RoadDublin [place] [id number] ALP [Catalytic activity/Vol] 101 U/L Normal 39-117 [facility]; [facility] Work Phone: Comment on above: PATIENT WAS FASTINGP ERFORMED BY: CB [facility] Txotst2134 [address] RoadDublin [place] [id number] ALT [Catalytic activity/Vol] 31 [iU]/L Normal 0-44 [facility] Work Phone: Comment on above: PATIENT WAS FASTINGP ERFORMED BY: CB [facility] Whazer0234 [address] RoadDublin [place] [id number] ALT [Catalytic activity/Vol] 31 U/L Normal 0-44 [facility]; [facility] Work Phone: Comment on above: PATIENT WAS FASTINGP ERFORMED BY: FERN [facility] Lpddrk4233 [address] RoadDublin [place] [id number] AST [Catalytic activity/Vol] 20 [iU]/L Normal 0-40 [facility] Work Phone: Comment on above: PATIENT WAS FASTINGP ERFORMED BY: FERN [facility] Ikjxmq4455 [address] RoadDublin [place] [id number] AST [Catalytic activity/Vol] 20 U/L Normal 0-40 [facility]; [facility] Internal Medicine Work Phone: Comment on above: PATIENT WAS FASTINGP ERFORMED BY: FERN [facility] Dcasty7145 [address] RoadDublin [place] [id number] Bilirubin [Mass/Vol] 0.4 mg/dL Normal 0.0-1.2 [facility] Work Phone: Comment on above: PATIENT WAS FASTINGP ERFORMED BY: FERN [facility] Ghzqbl4968 [address] RoadDublin [place] [id number] Calcium [Mass/Vol] 9.5 mg/dL Normal 8.7-10.2 [facility] Internal Medicine Work Phone: Comment on above: PATIENT WAS FASTINGP ERFORMED BY: FERN [facility] Pyoltm5532 [address] RoadDublin [place] [id number] Chloride [Moles/Vol] 101 mmol/L Normal 96-106 [facility] Work Phone: Comment on above: PATIENT WAS FASTINGP ERFORMED BY: FERN [facility] Jrkszh6194 [address] RoadDublin [place] [id number] CO2 [Moles/Vol] 22 mmol/L Normal 20-29 [facility] Internal Medicine Work Phone: Comment on above: PATIENT WAS FASTINGP ERFORMED BY: FERN [facility] Uyzqni8029 [address] RoadDublin [place] [id number] Creatinine [Mass/Vol] 0.89 mg/dL Normal 0.76-1.27 [facility] Internal Medicine Work Phone: Comment on above: PATIENT WAS FASTINGP ERFORMED BY: [facility] Obkikz3739 [address] Roadblin [place] [id number] GFR/1.73 sq M predicted among blacks CKD-EPI (S/P/Bld) [Vol rate/Area] 122 mL/min/1.73 Normal [facility] Work Phone: Comment on above: PATIENT WAS FASTINGP ERFORMED BY: [facility] Yysuzl3071 [address] Roadblin [place] [id number] GFR/1.73 sq M predicted among non-blacks CKD-EPI (S/P/Bld) [Vol rate/Area] 105 mL/min/1.73 Normal [facility] Work Phone: Comment on above: PATIENT WAS FASTINGP ERFORMED BY: LabDet[facility] [facility]in [place] [id number] Globulin (S) [Mass/Vol] 2.9 g/dL Normal 1.5-4.5 [facility] Internal Medicine Work Phone: Comment on above: PATIENT WAS FASTINGP ERFORMED BY: [facility]Det[facility] [facility]in [place] [id number] Glucose [Mass/Vol] 125 mg/dL Abnormal 65-99 [facility] Internal Medicine Work Phone: Comment on above: PATIENT WAS FASTINGP ERFORMED BY: [facility]Det[facility]6370 [facility] [id number] Potassium [Moles/Vol] 4.3 mmol/L Normal 3.5-5.2 [facility] Work Phone: Comment on above: PATIENT WAS FASTINGP ERFORMED BY: LabJohn [facility] Axkoia8388 [address] [facility]in [place] [id number] Protein [Mass/Vol] 7.5 g/dL Normal 6.0-8.5 [facility] Internal Medicine Work Phone: Comment on above: PATIENT WAS FASTINGP ERFORMED BY: LabJohn [facility] Chvhio7911 [address] [facility]in [place] [id number] Sodium [Moles/Vol] 140 mmol/L Normal 134-144 [facility] Internal Medicine Work Phone: Comment on above: PATIENT WAS FASTINGP ERFORMED BY: [facility]6[address] [facility]in [place] [id number] Urea nitrogen [Mass/Vol] 9 mg/dL Normal 6-24 [facility] Work Phone: Comment on above: PATIENT WAS FASTINGP ERFORMED BY: [facility]6[address] [facility] [id number] Urea nitrogen/Creatinine [Mass ratio] 10 mg/mg Normal 9-20 [facility] Work Phone: Comment on above: PATIENT WAS FASTINGP ERFORMED BY: [facility]6370 [facility] [id number] CBC W/AUTO DIFF WBC ([id number])O rdered By: Duplicator Punch Operator on 05-08-2019 Basophils (Bld) [#/Vol] 0.0 {x10E3/uL} Normal 0.0-0.2 [facility] Work Phone: Comment on above: PATIENT WAS FASTINGP ERFORMED BY: [facility]6[address] [facility] [id number] Basophils (Bld) [#/Vol] 0.0 10*3/uL Normal 0.0-0.2 [facility]; [facility] Work Phone: Comment on above: PATIENT WAS FASTINGP ERFORMED BY: [facility]Det[facility]6370 [address] [facility] [id number] Basophils/100 WBC (Bld) 0 % Normal [facility] Work Phone: Comment on above: PATIENT WAS FASTINGP ERFORMED BY: LabJohn [facility]. [facility] Wrdqgo6022 [address] [facility] [id number] Eosinophils (Bld) [#/Vol] 0.3 {x10E3/uL} Normal 0.0-0.4 [facility] Work Phone: Comment on above: PATIENT WAS FASTINGP ERFORMED BY: LabJohn [facility]. [facility] Vpurkb7796 [address] [facility] [id number] Eosinophils (Bld) [#/Vol] 0.3 10*3/uL Normal 0.0-0.4 [facility]; [facility] Work Phone: Comment on above: PATIENT WAS FASTINGP ERFORMED BY: FERN Velasquez Lllrml2227 [address] [facility]in [place] [id number] Eosinophils/100 WBC (Bld) 4 % Normal [facility] Work Phone: Comment on above: PATIENT WAS FASTINGP ERFORMED BY: ChrisJohn J. [facility] Rpubhl5641 [address] [facility] [id number] Erythrocyte distribution width (RBC) [Ratio] 13.5 % Normal 12.3-15.4 [facility] Work Phone: Comment on above: PATIENT WAS FASTINGP ERFORMED BY: LabJohn [facility]. [facility] Pfbmoh6741 [address] [facility] [id number] Hematocrit (Bld) [Volume fraction] 43.8 % Normal 37.5-51.0 [facility] Work Phone: Comment on above: PATIENT WAS FASTINGP ERFORMED BY: ChrisJohn [facility]. [facility] Wetzca7236 [address] [facility] [id number] Hemoglobin (Bld) [Mass/Vol] 15.5 g/dL Normal 13.0-17.7 [facility] Work Phone: Comment on above: PATIENT WAS FASTINGP ERFORMED BY: ChrisJohn [facility]. [facility] Lhjikm3211 [address] [facility] [id number] Immature granulocytes (Bld) [#/Vol] 0.0 {x10E3/uL} Normal 0.0-0.1 [facility] Work Phone: Comment on above: PATIENT WAS FASTINGP ERFORMED BY: LabJohn [facility]. [facility] Qbjbxu4004 [address] [facility]in [place] [id number] Immature granulocytes (Bld) [#/Vol] 0.0 10*3/uL Normal 0.0-0.1 [facility]; [facility] Work Phone: Comment on above: PATIENT WAS FASTINGP ERFORMED BY: LabDet[facility] Hospital6[address] RoadUnc Hospitals Hillsborough Campusin [place] [id number] Immature granulocytes/100 WBC (Bld) 0 % Normal [facility] Work Phone: Comment on above: PATIENT WAS FASTINGP ERFORMED BY: LabCoNewton Medical CenterAbuqcn7422 [address] RoadDublin [place] [id number] Lymphocytes (Bld) [#/Vol] 3.3 {x10E3/uL} Abnormal 0.7-3.1 [facility] Internal Medicine Work Phone: Comment on above: PATIENT WAS FASTINGP ERFORMED BY: LabResearch Psychiatric CenterWujkew1282 [address] RoadDublin [place] [id number] Lymphocytes (Bld) [#/Vol] 3.3 10*3/uL Abnormal 0.7-3.1 [facility] Internal Medicine; [facility] Work Phone: Comment on above: PATIENT WAS FASTINGP ERFORMED BY: LabDet[facility] Hospital6[address] RoadDublin [place] [id number] Lymphocytes/100 WBC (Bld) 38 % Normal [facility] Work Phone: Comment on above: PATIENT WAS FASTINGP ERFORMED BY: LabDet[facility] Hospital6370 [address]bl[address] [place] [id number] MCH (RBC) [Entitic mass] 31.2 pg Normal 26.6-33.0 [facility] Internal Medicine Work Phone: Comment on above: PATIENT WAS FASTINGP ERFORMED BY: LabResearch Psychiatric CenterYklzyw7926 [address] RoadDublin [place] [id number] MCHC (RBC) [Mass/Vol] 35.4 g/dL Normal 31.5-35.7 [facility] Internal Medicine Work Phone: Comment on above: PATIENT WAS FASTINGP ERFORMED BY: LabJohn [facility]. [facility] Iyuseh[address] Former[facility] HospitalDublin [place] [id number] MCV (RBC) [Entitic vol] 88 fL Normal 79-97 [facility] Internal Medicine Work Phone: Comment on above: PATIENT WAS FASTINGP ERFORMED BY: [facility] Exgpiv8[address] RoadDublin [place] [id number] Monocytes (Bld) [#/Vol] 0.6 {x10E3/uL} Normal 0.1-0.9 [facility] Work Phone: Comment on above: PATIENT WAS FASTINGP ERFORMED BY: FERN [facility] Nxteoq6537 [address] RoadDublin [place] [id number] Monocytes (Bld) [#/Vol] 0.6 10*3/uL Normal 0.1-0.9 [facility]; [facility] Work Phone: Comment on above: PATIENT WAS FASTINGP ERFORMED BY: FERN [facility] Qskiks4574 [address] RoadDublin [place] [id number] Monocytes/100 WBC (Bld) 7 % Normal [facility] Work Phone: Comment on above: PATIENT WAS FASTINGP ERFORMED BY: FERN LabCotrent MaciasPolchc3187 [address] RoadDublin [place] [id number] Neutrophils (Bld) [#/Vol] 4.6 {x10E3/uL} Normal 1.4-7.0 [facility] Work Phone: Comment on above: PATIENT WAS FASTINGP ERFORMED BY: FERN [facility] Tpqiqo9218 [address] RoadDublin [place] [id number] Neutrophils (Bld) [#/Vol] 4.6 10*3/uL Normal 1.4-7.0 [facility]; [facility] Work Phone: Comment on above: PATIENT WAS FASTINGP ERFORMED BY: [facility] Damsvu4409 [address]Dublin [place] [id number] Neutrophils/100 WBC (Bld) 51 % Normal [facility] Work Phone: Comment on above: PATIENT WAS FASTINGP ERFORMED BY: CB [facility] Xhnknx2856 [address] RoadDublin [place] [id number] Platelets (Bld) [#/Vol] 268 {x10E3/uL} Normal 150-450 [facility] Work Phone: Comment on above: PATIENT WAS FASTINGP ERFORMED BY: CB [facility] Jwpklm7135 [address] RoadDublin [place] [id number] Platelets (Bld) [#/Vol] 268 10*3/uL Normal 150-450 [facility]; [facility] Work Phone: Comment on above: PATIENT WAS FASTINGP ERFORMED BY: FERN LabCotrent Phezsf9448 [address] Roadblin [place] [id number] RBC (Bld) [#/Vol] 4.97 {x10E6/uL} Normal 4.14-5.80 [facility] Work Phone: Comment on above: PATIENT WAS FASTINGP ERFORMED BY: FERN [facility] Eclaei9293 [address] Roadblin [place] [id number] RBC (Bld) [#/Vol] 4.97 10*6/uL Normal 4.14-5.80 [facility] Internal Medicine; [facility] Work Phone: Comment on above: PATIENT WAS FASTINGP ERFORMED BY: FERN LabKarolina MaciasDujwab0360 [address] Roadblin [place] [id number] WBC (Bld) [#/Vol] 8.8 {x10E3/uL} Normal 3.4-10.8 [facility] Work Phone: Comment on above: PATIENT WAS FASTINGP ERFORMED BY: FERN [facility] Focdfm5846 [address] Roadblin [place] [id number] WBC (Bld) [#/Vol] 8.8 10*3/uL Normal 3.4-10.8 [facility] Internal Medicine; [facility] Work Phone: Comment on above: PATIENT WAS FASTINGP ERFORMED BY: FERN [facility] Crtgwo[address] [facility] Hospitalbl[facility] [place] [id number] LIPID PANEL ([id number])Ordered B y: Duplicator Punch Operator on 05-08-2019 Cholesterol [Mass/Vol] 227 mg/dL Abnormal 100-199 [facility] Internal Medicine Work Phone: Comment on above: PATIENT WAS FASTINGP ERFORMED BY: FERN [facility] Jvwdal[address] [facility] HospitalDublin [place] [id number] Cholesterol in HDL [Mass/Vol] 36 mg/dL Abnormal [facility] Work Phone: Comment on above: PATIENT WAS FASTINGP ERFORMED BY: FERN [facility] Ephcpu4847 [address] RoadDublin [place] [id number] Cholesterol in VLDL [Mass/Vol] VLDLCH Normal 5-40 [facility] Work Phone: Comment on above: The calculation for the VLDL cholesterol is not valid whentriglyceride level is >400 mg/dL.Triglyceride result indicated is too high for an accurate LDLcholesterol estimation. PATIENT WAS FASTINGP ERFORMED BY: CB [facility] Tacpri1342 [address] RoadDublin [place] [id number] Triglyceride [Mass/Vol] 417 mg/dL Abnormal 0-149 [facility] Work Phone: Comment on above: PATIENT WAS FASTINGP ERFORMED BY: [facility] Coxtlt4807 [address] RoadDublin [place] [id number] METABOLIC PANEL, COMPREHENSI VE ([id number])Ordered By: Duplicator Punch Operator on 05-08-2019 Albumin [Mass/Vol] 4.6 g/dL Normal 3.5-5.5 [facility] Internal Medicine Work Phone: Comment on above: PATIENT WAS FASTINGP ERFORMED BY: [facility] Yddwbs3365 [address] RoadDublin [place] [id number] Albumin/Globulin [Mass ratio] 1.7 {ratio} Normal 1.2-2.2 [facility] Work Phone: Comment on above: PATIENT WAS FASTINGP ERFORMED BY: [facility] Gqlujf9879 [address] RoadDublin [place] [id number] ALP [Catalytic activity/Vol] 108 [iU]/L Normal 39-117 [facility] Work Phone: Comment on above: PATIENT WAS FASTINGP ERFORMED BY: [facility] Fvvxfd0563 [address] RoadDublin [place] [id number] ALP [Catalytic activity/Vol] 108 U/L Normal 39-117 [facility]; [facility] Work Phone: Comment on above: PATIENT WAS FASTINGP ERFORMED BY: [facility] Yldeuv2732 [address] RoadDublin [place] [id number] ALT [Catalytic activity/Vol] 24 [iU]/L Normal 0-44 [facility] Work Phone: Comment on above: PATIENT WAS FASTINGP ERFORMED BY: [facility] Gyhfcb0538 [address] RoadDublin [place] [id number] ALT [Catalytic activity/Vol] 24 U/L Normal 0-44 [facility]; [facility] Work Phone: Comment on above: PATIENT WAS FASTINGP ERFORMED BY: [facility] Mmftbf5151 [address] RoadDublin [place] [id number] AST [Catalytic activity/Vol] 20 [iU]/L Normal 0-40 [facility] Work Phone: Comment on above: PATIENT WAS FASTINGP ERFORMED BY: [facility] Oojdrg1985 [address] RoadDublin [place] [id number] AST [Catalytic activity/Vol] 20 U/L Normal 0-40 [facility]; [facility] Work Phone: Comment on above: PATIENT WAS FASTINGP ERFORMED BY: [facility] Ucmsxu2910 [address] RoadDublin [place] [id number] Bilirubin [Mass/Vol] 0.3 mg/dL Normal 0.0-1.2 [facility] Work Phone: Comment on above: PATIENT WAS FASTINGP ERFORMED BY: [facility] Sgwljp3272 [address] RoadDublin [place] [id number] Calcium [Mass/Vol] 10.0 mg/dL Normal 8.7-10.2 [facility] Internal Medicine Work Phone: Comment on above: PATIENT WAS FASTINGP ERFORMED BY: [facility] Mpxkqa1898 [address] RoadDublin [place] [id number] Chloride [Moles/Vol] 101 mmol/L Normal 96-106 [facility] Work Phone: Comment on above: PATIENT WAS FASTINGP ERFORMED BY: [facility] Injefx7805 [address] RoadDublin [place] [id number] CO2 [Moles/Vol] 22 mmol/L Normal 20-29 Com[facility] Internal Medicine Work Phone: Comment on above: PATIENT WAS FASTINGP ERFORMED BY: [facility] Tdncxy6398 [address] RoadDublin [place] [id number] Creatinine [Mass/Vol] 0.86 mg/dL Normal 0.76-1.27 [facility] Internal Medicine Work Phone: Comment on above: PATIENT WAS FASTINGP ERFORMED BY: CB [facility] Czgmye7867 [address] RoadDublin [place] [id number] GFR/1.73 sq M predicted among blacks CKD-EPI (S/P/Bld) [Vol rate/Area] 125 mL/min/1.73 Normal [facility] Internal Medicine Work Phone: Comment on above: PATIENT WAS FASTINGP ERFORMED BY: [facility] Ztdfbp2881 [address] RoadDublin [place] [id number] GFR/1.73 sq M predicted among non-blacks CKD-EPI (S/P/Bld) [Vol rate/Area] 108 mL/min/1.73 Normal [facility] Internal Medicine Work Phone: Comment on above: PATIENT WAS FASTINGP ERFORMED BY: [facility] Ezuham2490 [address]Dublin [place] [id number] Globulin (S) [Mass/Vol] 2.7 g/dL Normal 1.5-4.5 [facility] Internal Medicine Work Phone: Comment on above: PATIENT WAS FASTINGP ERFORMED BY: [facility] Pkpjvs2231 [address] RoadDublin [place] [id number] Glucose [Mass/Vol] 103 mg/dL Abnormal 65-99 [facility] Internal Medicine Work Phone: Comment on above: PATIENT WAS FASTINGP ERFORMED BY: [facility] Irvnup1693 [address]Dublin [place] [id number] Potassium [Moles/Vol] 4.5 mmol/L Normal 3.5-5.2 [facility] Internal Medicine Work Phone: Comment on above: PATIENT WAS FASTINGP ERFORMED BY: CB [facility] Oatayq3342 [address] RoadDublin [place] [id number] Protein [Mass/Vol] 7.3 g/dL Normal 6.0-8.5 [facility] Internal Medicine Work Phone: Comment on above: PATIENT WAS FASTINGP ERFORMED BY: FERN LabKarolina Rosario[address] [facility] Hospitalblin [place] [id number] Sodium [Moles/Vol] 139 mmol/L Normal 134-144 [facility] Internal Medicine Work Phone: Comment on above: PATIENT WAS FASTINGP ERFORMED BY: FERN LabLay Xybvdi[address] [facility]in [place] [id number] Urea nitrogen [Mass/Vol] 9 mg/dL Normal 6-24 [facility] Work Phone: Comment on above: PATIENT WAS FASTINGP ERFORMED BY: FERN Rontrent Neqihn[address] [facility] [id number] Urea nitrogen/Creatinine [Mass ratio] 10 mg/mg Normal 9-20 [facility] Work Phone: Comment on above: PATIENT WAS FASTINGP ERFORMED BY: FERN ChrisJohn [facility]. [facility] Hxgpfw4413 [address] [facility] [id number] Alkaline Phosphatase ([id number]) Ordered By: Duplicator Punch Operator on 08-27-2018 ALP [Catalytic activity/Vol] 133 [iU]/L Abnormal 39-117 [facility] Work Phone: Comment on above: PATIENT NOT FASTINGP ERFORMED BY: FERN Ron Cekgnz[address] [facility]in [place] [id number] ALP [Catalytic activity/Vol] 133 U/L Abnormal 39-117 [facility]; [facility] Work Phone: Comment on above: PATIENT NOT FASTINGP ERFORMED BY: FERN [facility] Oifjim[address] [facility] Hospitalblin [place] [id number] CBC W/AUTO DIFF WBC (82174)O rdered By: Duplicator Punch Operator on 08-27-2018 Basophils (Bld) [#/Vol] 0.0 {x10E3/uL} Normal 0.0-0.2 [facility] Work Phone: Comment on above: PATIENT NOT FASTINGP ERFORMED BY: FERN [facility] Uhtoyu[address] [facility]in [place] [id number] Basophils (Bld) [#/Vol] 0.0 10*3/uL Normal 0.0-0.2 [facility]; [facility] Work Phone: Comment on above: PATIENT NOT FASTINGP ERFORMED BY: CB [facility] Pbkafn7842 [address] RoadDublin [place] [id number] Basophils/100 WBC (Bld) 0 % Normal [facility] Work Phone: Comment on above: PATIENT NOT FASTINGP ERFORMED BY: CB [facility] Wgqmnp7753 [address] RoadDublin [place] [id number] Eosinophils (Bld) [#/Vol] 0.2 {x10E3/uL} Normal 0.0-0.4 [facility] Work Phone: Comment on above: PATIENT NOT FASTINGP ERFORMED BY: CB [facility] Bjvlpo6242 [address] RoadDuin [place] [id number] Eosinophils (Bld) [#/Vol] 0.2 10*3/uL Normal 0.0-0.4 [facility]; [facility] Work Phone: Comment on above: PATIENT NOT FASTINGP ERFORMED BY: [facility] Uiqjlc1284 [address] RoadDublin [place] [id number] Eosinophils/100 WBC (Bld) 2 % Normal [facility] Work Phone: Comment on above: PATIENT NOT FASTINGP ERFORMED BY: [facility] Lqpzma8295 [address] RoadDublin [place] [id number] Erythrocyte distribution width (RBC) [Ratio] 13.2 % Normal 12.3-15.4 [facility] Work Phone: Comment on above: PATIENT NOT FASTINGP ERFORMED BY: CB [facility] Mivtmo5700 [address] RoadDublin [place] [id number] Hematocrit (Bld) [Volume fraction] 45.8 % Normal 37.5-51.0 [facility] Work Phone: Comment on above: PATIENT NOT FASTINGP ERFORMED BY: CB [facility] Togjdh1619 [address] RoadDublin [place] [id number] Hemoglobin (Bld) [Mass/Vol] 16.0 g/dL Normal 13.0-17.7 [facility] Work Phone: Comment on above: PATIENT NOT FASTINGP ERFORMED BY: FERN LabKarolina Rosario6370 [address] RoadDublin [place] [id number] Immature granulocytes (Bld) [#/Vol] 0.0 {x10E3/uL} Normal 0.0-0.1 [facility] Work Phone: Comment on above: PATIENT NOT FASTINGP ERFORMED BY: CB [facility] Trosof9766 [address] RoadDublin [place] [id number] Immature granulocytes (Bld) [#/Vol] 0.0 10*3/uL Normal 0.0-0.1 [facility]; [facility] Work Phone: Comment on above: PATIENT NOT FASTINGP ERFORMED BY: LabLay Hglekg5130 [address] RoadDublin [place] [id number] Immature granulocytes/100 WBC (Bld) 0 % Normal [facility] Work Phone: Comment on above: PATIENT NOT FASTINGP ERFORMED BY: [facility] Unsknp1516 [address] RoadDublin [place] [id number] Lymphocytes (Bld) [#/Vol] 2.7 {x10E3/uL} Normal 0.7-3.1 [facility] Work Phone: Comment on above: PATIENT NOT FASTINGP ERFORMED BY: [facility] Vixund9149 [address] RoadDublin [place] [id number] Lymphocytes (Bld) [#/Vol] 2.7 10*3/uL Normal 0.7-3.1 [facility]; [facility] Work Phone: Comment on above: PATIENT NOT FASTINGP ERFORMED BY: CB [facility] Loykya8175 [address] RoadDublin [place] [id number] Lymphocytes/100 WBC (Bld) 24 % Normal [facility] Work Phone: Comment on above: PATIENT NOT FASTINGP ERFORMED BY: CB [facility] Prpdvo2500 [address]Dublin [place] [id number] MCH (RBC) [Entitic mass] 31.8 pg Normal 26.6-33.0 [facility] Work Phone: Comment on above: PATIENT NOT FASTINGP ERFORMED BY: FERN [facility] Zlqvwp0992 [address] RoadDublin [place] [id number] MCHC (RBC) [Mass/Vol] 34.9 g/dL Normal 31.5-35.7 [facility] Internal Medicine Work Phone: Comment on above: PATIENT NOT FASTINGP ERFORMED BY: CB [facility] Zfkajj4730 [address] RoadDublin [place] [id number] MCV (RBC) [Entitic vol] 91 fL Normal 79-97 [facility] Work Phone: Comment on above: PATIENT NOT FASTINGP ERFORMED BY: FERN [facility] Crtauj5553 [address] RoadDublin [place] [id number] Monocytes (Bld) [#/Vol] 0.9 {x10E3/uL} Normal 0.1-0.9 [facility] Work Phone: Comment on above: PATIENT NOT FASTINGP ERFORMED BY: CB [facility] Onredj4934 [address] RoadDublin [place] [id number] Monocytes (Bld) [#/Vol] 0.9 10*3/uL Normal 0.1-0.9 [facility]; [facility] Work Phone: Comment on above: PATIENT NOT FASTINGP ERFORMED BY: CB [facility] Eiamfe6849 [address] RoadDublin [place] [id number] Monocytes/100 WBC (Bld) 8 % Normal [facility] Work Phone: Comment on above: PATIENT NOT FASTINGP ERFORMED BY: CB [facility] Zuarno7842 [address] RoadDublin [place] [id number] Neutrophils (Bld) [#/Vol] 7.1 {x10E3/uL} Abnormal 1.4-7.0 [facility] Work Phone: Comment on above: PATIENT NOT FASTINGP ERFORMED BY: CB [facility] Gdmwww1101 [address]Dublin [place] [id number] Neutrophils (Bld) [#/Vol] 7.1 10*3/uL Abnormal 1.4-7.0 [facility]; [facility] Work Phone: Comment on above: PATIENT NOT FASTINGP ERFORMED BY: CB [facility] Ccmffu2319 [address] RoadDublin [place] [id number] Neutrophils/100 WBC (Bld) 66 % Normal [facility] Work Phone: Comment on above: PATIENT NOT FASTINGP ERFORMED BY: CB [facility] Rqpuuh6644 [address] RoadDublin [place] [id number] Platelets (Bld) [#/Vol] 286 {x10E3/uL} Normal 150-379 [facility] Work Phone: Comment on above: PATIENT NOT FASTINGP ERFORMED BY: CB [facility] Uxinbh6175 [address] RoadDublin [place] [id number] Platelets (Bld) [#/Vol] 286 10*3/uL Normal 150-379 [facility]; [facility] Work Phone: Comment on above: PATIENT NOT FASTINGP ERFORMED BY: CB [facility] Shotnf8038 [address] RoadDublin [place] [id number] RBC (Bld) [#/Vol] 5.03 {x10E6/uL} Normal 4.14-5.80 [facility] Internal Medicine Work Phone: Comment on above: PATIENT NOT FASTINGP ERFORMED BY: CB [facility] Nbvxxo4244 [address] RoadDublin [place] [id number] RBC (Bld) [#/Vol] 5.03 10*6/uL Normal 4.14-5.80 [facility]; [facility] Work Phone: Comment on above: PATIENT NOT FASTINGP ERFORMED BY: CB [facility] Ptabdi1407 [address] RoadDublin [place] [id number] WBC (Bld) [#/Vol] 10.9 {x10E3/uL} Abnormal 3.4-10.8 [facility] Internal Medicine Work Phone: Comment on above: PATIENT NOT FASTINGP ERFORMED BY: FERN [facility] Agwfoy6473 [address] RoadDublin [place] [id number] WBC (Bld) [#/Vol] 10.9 10*3/uL Abnormal 3.4-10.8 [facility] Internal Medicine; [facility] Work Phone: Comment on above: PATIENT NOT FASTINGP ERFORMED BY: CB [facility] Nxvocs4335 [address]blin [place] [id number] GGT (Gamma Glutamyl Transfer ase) ([id number])Ordered By: Duplicator Punch Operator on 08-27-2018 Gamma glutamyl transferase [Catalytic activity/Vol] 27 [iU]/L Normal 0-65 [facility] Work Phone: Comment on above: PATIENT NOT FASTINGP ERFORMED BY: FERN [facility] Bviejm9213 [address] RoadDublin [place] [id number] Gamma glutamyl transferase [Catalytic activity/Vol] 27 U/L Normal 0-65 [facility]; [facility] Work Phone: Comment on above: PATIENT NOT FASTINGP ERFORMED BY: FERN [facility] Byztib7170 [address] RoadDublin [place] [id number] MICROALBUMINOrdered By: Syst em Plywood And Veneer Repairer on 08-27-2018 Albumin DL <= 20 mg/L (U) [Mass/Vol] 7.9 ug/mL Normal [facility] Work Phone: Comment on above: PATIENT NOT FASTINGP ERFORMED BY: FERN [facility] Plnynm[address] [facility]in [place] [id number] Albumin/Creatinine (U) [Mass ratio] 12.1 {mg/g_creat} Normal 0.0-30.0 [facility] Work Phone: Comment on above: Normal: 0.0 - 30.0 A lbuminuria: 31.0 - 300.0 Clinical albuminuria: >300.0 PATIENT NOT FASTINGP ERFORMED BY: FERN [facility] Irgjad1888 [address] RoadDublin [place] [id number] Creatinine (U) [Mass/Vol] 65.2 mg/dL Normal [facility] Work Phone: Comment on above: PATIENT NOT FASTINGP ERFORMED BY: FERN [facility] Ojjqkh6461 [address] RoadDublin [place] [id number] Microscopic ExaminationOrder ed By: Duplicator Punch Operator on 08-27-2018 Bacteria LM.HPF (Urine sed) [#/Area] None seen Normal [facility] Work Phone: Comment on above: PATIENT NOT FASTINGP ERFORMED BY: FERN [facility] Xvzaad9276 [address] RoadDublin [place] [id number] Epithelial cells LM.HPF (Urine sed) [#/Area] None seen Normal 0 - 10 [facility] Work Phone: Comment on above: PATIENT NOT FASTINGP ERFORMED BY: FERN [facility] Ldfyps5833 [address] RoadDublin [place] [id number] RBC LM.HPF (Urine sed) [#/Area] None seen Normal 0 - 2 [facility] Work Phone: Comment on above: PATIENT NOT FASTINGP ERFORMED BY: FERN [facility] Teyocb0485 [address] RoadDublin [place] [id number] WBC LM.HPF (Urine sed) [#/Area] None seen Normal 0 - 5 [facility] Work Phone: Comment on above: PATIENT NOT FASTINGP ERFORMED BY: FERN LabCotrent MaciasMwfmtk7718 [address] RoadDublin [place] [id number] URINALYSIS, W/ MICRO ([id number]) Ordered By: Duplicator Punch Operator on 08-27-2018 Appearance (U) Clear Normal [facility] Work Phone: Comment on above: PATIENT NOT FASTINGP ERFORMED BY: FERN [facility] Tlzmzl0696 [address] RoadDublin [place] [id number] Bilirubin Ql (U) Negative Normal Comprehe nsive Internal Medicine Work Phone: Comment on above: PATIENT NOT FASTINGP ERFORMED BY: FERN [facility] Phasuh8735 [address] RoadDublin [place] [id number] Bilirubin Ql (U) Negative Normal Comprehe nsive Internal Medicine; [facility] Work Phone: Comment on above: PATIENT NOT FASTINGP ERFORMED BY: CB [facility] Elxlbz0652 [address] RoadDublin [place] [id number] Color (U) Yellow Normal [facility] Work Phone: Comment on above: PATIENT NOT FASTINGP ERFORMED BY: FERN Rosario6370 [address]Dublin [place] [id number] Glucose Ql (U) Trace Abnormal [facility] Work Phone: Comment on above: PATIENT NOT FASTINGP ERFORMED BY: FERN Martin70 [address] RoadDublin [place] [id number] Hemoglobin Ql (U) Negative Normal Compreh ensive Internal Medicine Work Phone: Comment on above: PATIENT NOT FASTINGP ERFORMED BY: FERN Martin70 [address]Dublin [place] [id number] Hemoglobin Ql (U) Negative Normal Compreh ensive Internal Medicine; [facility] Work Phone: Comment on above: PATIENT NOT FASTINGP ERFORMED BY: FERN Martin70 [address]Duin [place] [id number] Ketones Ql (U) Negative Normal [facility] Work Phone: Comment on above: PATIENT NOT FASTINGP ERFORMED BY: FERN Martin70 [address]Duin [place] [id number] Ketones Ql (U) Negative Normal [facility]; [facility] Work Phone: Comment on above: PATIENT NOT FASTINGP ERFORMED BY: FERN Martin70 [address]Duin [place] [id number] Leukocyte esterase Test strip Ql (U) Negative Normal [facility] Work Phone: Comment on above: PATIENT NOT FASTINGP ERFORMED BY: FERN Rosario6370 [address] RoadDublin [place] [id number] Leukocyte esterase Test strip Ql (U) Negative Normal [facility]; [facility] Work Phone: Comment on above: PATIENT NOT FASTINGP ERFORMED BY: FERN Genet Haotlp8740 [address] RoadDublin [place] [id number] Microscopic observation LM Nom (Urine sed) See below: Normal [facility] Work Phone: Comment on above: Microscopic was tj cated and was performed. PATIENT NOT FASTINGP ERFORMED BY: FERN Rosario6[address] [facility] [id number] Microscopic observation LM Nom (Urine sed) MICRON Normal [facility] Work Phone: Comment on above: Microscopic follows if indicated. PATIENT NOT FASTINGP ERFORMED BY: FERN Rosario6370 [address] [facility] [id number] Nitrite Ql (U) Negative Normal [facility] Work Phone: Comment on above: PATIENT NOT FASTINGP ERFORMED BY: FERN Rosario6[address] [facility] [id number] Nitrite Ql (U) Negative Normal [facility]; [facility] Work Phone: Comment on above: PATIENT NOT FASTINGP ERFORMED BY: FERN Rosario6370 [facility] [id number] pH (U) 6.0 [pH] Normal 5.0-7.5 [facility] Work Phone: Comment on above: PATIENT NOT FASTINGP ERFORMED BY: FERN Rosario6370 [facility] [id number] Protein Ql (U) Negative Normal [facility] Work Phone: Comment on above: PATIENT NOT FASTINGP ERFORMED BY: FERN Rosario6[address] [facility] [id number] Protein Ql (U) Negative Normal [facility]; [facility] Work Phone: Comment on above: PATIENT NOT FASTINGP ERFORMED BY: FERN Rosario6370 [address] [facility] [id number] Specific gravity (U) [Rel density] 1.011 1 Normal 1.005-1.030 [facility] Work Phone: Comment on above: PATIENT NOT FASTINGP ERFORMED BY: FERN Maciaslin6370 [facility] [place] [id number] Urobilinogen (U) [Mass/Vol] 0.2 mg/dL Normal 0.2-1.0 [facility]; [facility] Internal Medicine Work Phone: Comment on above: PATIENT NOT FASTINGP ERFORMED BY: [facility] Zfuevr5011 [address]Dublin [place] [id number] Urobilinogen Test strip (U) [Mass/Vol] 0.2 mg/dL Normal 0.2-1.0 [facility] Internal [facility] Work Phone: Comment on above: PATIENT NOT FASTINGP ERFORMED BY: [facility] Sbeebg[address] [facility]bl[facility] [place] [id number] CALCIFEDIOL (17404)Ordered B y: Duplicator Punch Operator on 08-13-2018 25-Hydroxyvitamin D2+25-Hydroxyvitamin D3 [Mass/Vol] 31.8 ng/mL Normal 30.0-100.0 [facility] Internal Medicine Work Phone: Comment on above: Vitamin D deficiency has been defined by the [place] [facility] and an Endocrine Society practice guideline as alevel of serum 25-OH vitamin D less than 20 ng/mL (1,2).The Endocrine Society went on to further define vitamin Dinsufficiency as a level between 21 and 29 ng/mL (2).1. IOM ([place] of Medicine). 2010. Dietary reference intakes for calcium and D. [place]: The National Academies Press.2. Aurelia MF, Freddy NC, Emi AZAR, et al. Evaluation, treatment, and prevention of vitamin D deficiency: an Endocrine Society clinical practice guideline. JCEM. 2010; 96(7):1911-30. PATIENT WAS FASTINGP ERFORMED BY: [facility] Fmvcbc[address] [facility] HospitalDublin [place] [id number] HEPATIC FUNCTION PANEL ([id number] [id number])Ordered By: Duplicator Punch Operator on 08-13-2018 Bilirubin.direct [Mass/Vol] 0.14 mg/dL Normal 0.00-0.40 [facility] Internal Medicine Work Phone: Comment on above: PATIENT WAS FASTINGP ERFORMED BY: [facility] Asauvl5578 [address] [facility] [place] [id number] LIPID PANEL ([id number])Ordered B y: Duplicator Punch Operator on 08-13-2018 Cholesterol [Mass/Vol] 178 mg/dL Normal 100-199 [facility] Internal Medicine Work Phone: Comment on above: PATIENT WAS FASTINGP ERFORMED BY: FERN LabKarolina Ccuovi1131 [address]ner RoadDublin [place] [id number] Cholesterol in HDL [Mass/Vol] 36 mg/dL Abnormal [facility] Work Phone: Comment on above: PATIENT WAS FASTINGP ERFORMED BY: FERN LabCotrent MaciasVimpcn7231 [address] [facility] [place] [id number] Cholesterol in LDL [Mass/Vol] 62 mg/dL Normal 0-99 [facility] Work Phone: Comment on above: PATIENT WAS FASTINGP ERFORMED BY: FERN LabKarolina MaciasLvjyin3564 [address] [facility] [place] [id number] Cholesterol in LDL/Cholesterol in HDL [Mass ratio] 1.7 {ratio} Normal 0.0-3.6 [facility] Work Phone: Comment on above: LDL/HDL Ratio Men Wo men 1/2 Avg.Risk 1.0 1.5 Avg.Risk 3.6 3.2 2X Avg.Risk 6.2 5.0 3X Avg.Risk 8.0 6.1 PATIENT WAS FASTINGP ERFORMED BY: FERN LabCotrent Jvnxxn7764 [address] [facility] [place] [id number] Cholesterol in VLDL [Mass/Vol] 80 mg/dL Abnormal 5-40 [facility] Work Phone: Comment on above: PATIENT WAS FASTINGP ERFORMED BY: FERN [facility] Sjgyha2608 [address] [facility] HospitalDublin [place] [id number] Triglyceride [Mass/Vol] 400 mg/dL Abnormal 0-149 [facility] Work Phone: Comment on above: PATIENT WAS FASTINGP ERFORMED BY: FERN [facility] Ojxmyh2880 [address]ner RoadDublin [place] [id number] METABOLIC PANEL, COMPREHENSI VE ([id number])Ordered By: Duplicator Punch Operator on 08-13-2018 Albumin [Mass/Vol] 4.6 g/dL Normal 3.5-5.5 [facility] Internal Medicine Work Phone: Comment on above: PATIENT WAS FASTINGP ERFORMED BY: FERN LabCotrent MaciasRrgjsv7145 [address]ner RoadUnc Hospitals Hillsborough Campusin [place] [id number] Information: NURSE DRAW Albumin/Globulin [Mass ratio] 1.6 {ratio} Normal 1.2-2.2 [facility] Work Phone: Comment on above: PATIENT WAS FASTINGP ERFORMED BY: FERN [facility] Eeequs1233 [address]ner RoadUnc Hospitals Hillsborough Campusin [place] [id number] Information: NURSE DRAW ALP [Catalytic activity/Vol] 128 [iU]/L Abnormal 39-117 [facility] Work Phone: Comment on above: PATIENT WAS FASTINGP ERFORMED BY: FERN LabCotrent MaciasFnojdc2076 [address]ner RoadCarolinas ContinueCARE Hospital at Pineville [id number] Information: NURSE DRAW ALP [Catalytic activity/Vol] 128 U/L Abnormal 39-117 [facility]; [facility] Work Phone: Comment on above: PATIENT WAS FASTINGP ERFORMED BY: FERN LabCotrent MaciasVhgbzg4994 [address] [facility] [id number] Information: NURSE DRAW ALT [Catalytic activity/Vol] 34 [iU]/L Normal 0-44 [facility] Work Phone: Comment on above: PATIENT WAS FASTINGP ERFORMED BY: FERN [facility] Mqwbyg8438 [address] [facility] [id number] Information: NURSE DRAW ALT [Catalytic activity/Vol] 34 U/L Normal 0-44 [facility]; [facility] Work Phone: Comment on above: PATIENT WAS FASTINGP ERFORMED BY: FERN [facility] Zxfxeu7898 [address] [facility] [id number] Information: NURSE DRAW AST [Catalytic activity/Vol] 35 [iU]/L Normal 0-40 [facility] Work Phone: Comment on above: PATIENT WAS FASTINGP ERFORMED BY: FERN [facility] Iirwcv7335 [address] [facility] [id number] Information: NURSE DRAW AST [Catalytic activity/Vol] 35 U/L Normal 0-40 [facility]; [facility] Work Phone: Comment on above: PATIENT WAS FASTINGP ERFORMED BY: FERN [facility] Xrieuk9466 [facility] [id number] Information: NURSE DRAW Bilirubin [Mass/Vol] 0.4 mg/dL Normal 0.0-1.2 [facility] Work Phone: Comment on above: PATIENT WAS FASTINGP ERFORMED BY: [facility]6370 [facility] [id number] Information: NURSE DRAW Calcium [Mass/Vol] 9.8 mg/dL Normal 8.7-10.2 [facility] Internal Medicine Work Phone: Comment on above: PATIENT WAS FASTINGP ERFORMED BY: FERN [place] [id number] [facility] [id number] Information: NURSE DRAW Chloride [Moles/Vol] 102 mmol/L Normal 96-106 [facility] Work Phone: Comment on above: PATIENT WAS FASTINGP ERFORMED BY: FERN [facility]6370 [facility] [id number] Information: NURSE DRAW CO2 [Moles/Vol] 20 mmol/L Normal 20-29 [facility] Internal Medicine Work Phone: Comment on above: PATIENT WAS FASTINGP ERFORMED BY: [place] 4358870 [facility] [id number] Information: NURSE DRAW Creatinine [Mass/Vol] 0.85 mg/dL Normal 0.76-1.27 [facility] Work Phone: Comment on above: PATIENT WAS FASTINGP ERFORMED BY: [place] 4358870 [facility] [id number] Information: NURSE DRAW GFR/1.73 sq M predicted among blacks CKD-EPI (S/P/Bld) [Vol rate/Area] 125 mL/min/1.73 Normal [facility] Internal Medicine Work Phone: Comment on above: PATIENT WAS FASTINGP ERFORMED BY: [place] 4358870 [facility] [id number] Information: NURSE DRAW GFR/1.73 sq M predicted among non-blacks CKD-EPI (S/P/Bld) [Vol rate/Area] 108 mL/min/1.73 Normal [facility] Internal Medicine Work Phone: Comment on above: PATIENT WAS FASTINGP ERFORMED BY: [address] [id number] Information: NURSE DRAW Globulin (S) [Mass/Vol] 2.9 g/dL Normal 1.5-4.5 [facility] Internal Medicine Work Phone: Comment on above: PATIENT WAS FASTINGP ERFORMED BY: [address] [id number] Information: NURSE DRAW Glucose [Mass/Vol] 125 mg/dL Abnormal 65-99 [facility] Internal Medicine Work Phone: Comment on above: Specimen received in contact with cells. No visible hemolysispresent. However GLUC may be decreased and K increased. Clinicalcorrelation indicated. PATIENT WAS FASTINGP ERFORMED BY: [place] 4358870 [facility] [id number] Information: NURSE DRAW Potassium [Moles/Vol] 4.8 mmol/L Normal 3.5-5.2 [facility] Internal Medicine Work Phone: Comment on above: Specimen received in contact with cells. No visible hemolysispresent. However GLUC may be decreased and K increased. Clinicalcorrelation indicated. PATIENT WAS FASTINGP ERFORMED BY: [place] 4358870 [facility] [id number] Information: NURSE DRAW Protein [Mass/Vol] 7.5 g/dL Normal 6.0-8.5 [facility] Internal Medicine Work Phone: Comment on above: PATIENT WAS FASTINGP ERFORMED BY: [place] 4358870 [facility] [id number] Information: NURSE DRAW Sodium [Moles/Vol] 142 mmol/L Normal 134-144 Compre [facility] Internal Medicine Work Phone: Comment on above: PATIENT WAS FASTINGP ERFORMED BY: [facility]6370 [facility] [id number] Information: NURSE DRAW Urea nitrogen [Mass/Vol] 10 mg/dL Normal 6-24 [facility] Work Phone: Comment on above: PATIENT WAS FASTINGP ERFORMED BY: LabCoNewton Medical CenterPhczni2681 [facility] [id number] Information: NURSE DRAW Urea nitrogen/Creatinine [Mass ratio] 12 mg/mg Normal 9-20 [facility] Work Phone: Comment on above: PATIENT WAS FASTINGP ERFORMED BY: [facility]6370 [facility] [id number] Information: NURSE DRAW PPD (73454)Ordered By: Linda Dasilva on 09-12-2016 PPD (97567) Negative Normal [facility] Work Phone: Comment on above: .01 given on 09/09 given lt arm lot [id number] exp 10/24 PPD (75075) Negative Normal [facility]; [facility] Work Phone: Comment on above: .01 given on 09/09 given lt arm lot [id number] exp 10/24 CBC WITH MANUAL DIFF (17203) Ordered By: Duplicator Punch Operator on 11-20-2012 Basophils (Bld) [#/Vol] 0.0 {x10E3/uL} Normal 0.0-0.2 [facility] Work Phone: Comment on above: PATIENT WAS FASTINGP ERFORMED BY: [facility]6370 [facility] [id number] Information: [id number],[id number] Basophils (Bld) [#/Vol] 0.0 10*3/uL Normal 0.0-0.2 [facility]; [facility] Work Phone: Comment on above: PATIENT WAS FASTINGP ERFORMED BY: [facility]6370 [facility] [id number] Information: [id number] Basophils/100 WBC (Bld) 0 % Normal 0-3 [facility] Work Phone: Comment on above: PATIENT WAS FASTINGP ERFORMED BY: [address] [id number] Information: [id number],[id number] Eosinophils (Bld) [#/Vol] 0.2 {x10E3/uL} Normal 0.0-0.4 [facility] Work Phone: Comment on above: PATIENT WAS FASTINGP ERFORMED BY: [address] [id number] Information: 404998,[id number] Eosinophils (Bld) [#/Vol] 0.2 10*3/uL Normal 0.0-0.4 [facility]; [facility] Work Phone: Comment on above: PATIENT WAS FASTINGP ERFORMED BY: [address] [id number] Information: [id number],F85085 Eosinophils/100 WBC (Bld) 2 % Normal 0-7 [facility] Work Phone: Comment on above: PATIENT WAS FASTINGP ERFORMED BY: [address] [id number] Information: 415681,[id number] Erythrocyte distribution width (RBC) [Ratio] 13.3 % Normal 12.3-15.4 [facility] Work Phone: Comment on above: PATIENT WAS FASTINGP ERFORMED BY: [address] [id number] Information: 244662,M95601 Hematocrit (Bld) [Volume fraction] 47.5 % Normal 37.5-51.0 [facility] Work Phone: Comment on above: PATIENT WAS FASTINGP ERFORMED BY: [place] 4358870 [facility] [id number] Information: [id number],[id number] Hemoglobin (Bld) [Mass/Vol] 16.3 g/dL Normal 12.6-17.7 [facility] Work Phone: Comment on above: PATIENT WAS FASTINGP ERFORMED BY: [address] [id number] Information: [id number],[id number] Immature granulocytes (Bld) [#/Vol] 0.0 {x10E3/uL} Normal 0.0-0.1 [facility] Work Phone: Comment on above: PATIENT WAS FASTINGP ERFORMED BY: [address] [id number] Information: [id number] Immature granulocytes (Bld) [#/Vol] 0.0 10*3/uL Normal 0.0-0.1 [facility]; [facility] Work Phone: Comment on above: PATIENT WAS FASTINGP ERFORMED BY: [address] [id number] Information: [id number],Q30144 Immature granulocytes/100 WBC (Bld) 0 % Normal 0-2 [facility] Work Phone: Comment on above: PATIENT WAS FASTINGP ERFORMED BY: [address] [id number] Information: [id number],[id number] Lymphocytes (Bld) [#/Vol] 3.0 {x10E3/uL} Normal 0.7-4.5 [facility] Work Phone: Comment on above: PATIENT WAS FASTINGP ERFORMED BY: [address] [id number] Information: 390247,[id number] Lymphocytes (Bld) [#/Vol] 3.0 10*3/uL Normal 0.7-4.5 [facility]; [facility] Work Phone: Comment on above: PATIENT WAS FASTINGP ERFORMED BY: FERN PerezKeith [place] 9250270 [facility] [id number] Information: [id number],[id number] Lymphocytes/100 WBC (Bld) 32 % Normal 14-46 [facility] Work Phone: Comment on above: PATIENT WAS FASTINGP ERFORMED BY: [address] [id number] Information: 175616,[id number] MCH (RBC) [Entitic mass] 31.2 pg Normal 26.6-33.0 [facility] Internal Medicine Work Phone: Comment on above: PATIENT WAS FASTINGP ERFORMED BY: [address] [id number] Information: 510054,[id number] MCHC (RBC) [Mass/Vol] 34.3 g/dL Normal 31.5-35.7 [facility] Internal Medicine Work Phone: Comment on above: PATIENT WAS FASTINGP ERFORMED BY: [address] [id number] Information: [id number],[id number] MCV (RBC) [Entitic vol] 91 fL Normal 79-97 [facility] Internal Medicine Work Phone: Comment on above: PATIENT WAS FASTINGP ERFORMED BY: [address] [id number] Information: [id number],[id number] Monocytes (Bld) [#/Vol] 0.6 {x10E3/uL} Normal 0.1-1.0 [facility] Internal Medicine Work Phone: Comment on above: PATIENT WAS FASTINGP ERFORMED BY: [place] 4358870 [facility] [id number] Information: [id number],[id number] Monocytes (Bld) [#/Vol] 0.6 10*3/uL Normal 0.1-1.0 [facility]; [facility] Work Phone: Comment on above: PATIENT WAS FASTINGP ERFORMED BY: FERN [facility]University [facility] [id number] Information: [id number] Monocytes/100 WBC (Bld) 7 % Normal 4-13 [facility] Work Phone: Comment on above: PATIENT WAS FASTINGP ERFORMED BY: FERN Ramirez [facility] [id number] Information: 265099,[id number] Neutrophils (Bld) [#/Vol] 5.6 {x10E3/uL} Normal 1.8-7.8 [facility] Work Phone: Comment on above: PATIENT WAS FASTINGP ERFORMED BY: FERN Rosario6370 [facility] [id number] Information: [id number] Neutrophils (Bld) [#/Vol] 5.6 10*3/uL Normal 1.8-7.8 [facility]; [facility] Work Phone: Comment on above: PATIENT WAS FASTINGP ERFORMED BY: FERN Ramirez [facility] [id number] Information: [id number],[id number] Neutrophils/100 WBC (Bld) 59 % Normal 40-74 [facility] Work Phone: Comment on above: PATIENT WAS FASTINGP ERFORMED BY: FERN Rosario6370 [facility] [id number] Information: [id number],[id number] Platelets (Bld) [#/Vol] 282 {x10E3/uL} Normal 140-415 [facility] Work Phone: Comment on above: PATIENT WAS FASTINGP ERFORMED BY: FERN Maciaslin6370 [facility] [id number] Information: 116713,[id number] Platelets (Bld) [#/Vol] 282 10*3/uL Normal 140-415 [facility]; [facility] Work Phone: Comment on above: PATIENT WAS FASTINGP ERFORMED BY: FERN LabCotrent RosarioDretch9462 [facility] [id number] Information: 846194,[id number] RBC (Bld) [#/Vol] 5.22 {x10E6/uL} Normal 4.14-5.80 [facility] Internal [facility] Work Phone: Comment on above: PATIENT WAS FASTINGP ERFORMED BY: FERN [facility] Lmtnfj7562 [facility] [id number] Information: 556291,[id number] RBC (Bld) [#/Vol] 5.22 10*6/uL Normal 4.14-5.80 [facility] Internal Medicine; [facility] Work Phone: Comment on above: PATIENT WAS FASTINGP ERFORMED BY: FERN [facility] Bcvyhm9538 [facility] [id number] Information: [id number],[id number] WBC (Bld) [#/Vol] 9.5 {x10E3/uL} Normal 4.0-10.5 [facility] Work Phone: Comment on above: PATIENT WAS FASTINGP ERFORMED BY: FERN Rontrent Xdwgcd1487 [facility] [id number] Information: [id number],[id number] WBC (Bld) [#/Vol] 9.5 10*3/uL Normal 4.0-10.5 [facility] Internal Medicine; [facility] Work Phone: Comment on above: PATIENT WAS FASTINGP ERFORMED BY: [facility] Njjyxg2760 [facility] [id number] Information: [id number] LIPID PANEL (44092)Ordered B y: Duplicator Punch Operator on 11-20-2012 Cholesterol [Mass/Vol] 266 mg/dL Abnormal 100-199 [facility]erens[facility] Internal Medicine Work Phone: Comment on above: PATIENT WAS FASTINGP ERFORMED BY: FERN [facility] Jojwfj6439 [facility]in [place] [id number] Cholesterol in HDL [Mass/Vol] 39 mg/dL Abnormal [facility] Work Phone: Comment on above: According to ATP-III Guidelines, HDL-C >59 mg/dL is considered anegative risk factor for CHD. PATIENT WAS FASTINGP ERFORMED BY: FERN [facility] Ynkfhk8928 [address] [facility]in [place] [id number] Cholesterol in LDL [Mass/Vol] 152 mg/dL Abnormal 0-99 [facility] Work Phone: Comment on above: PATIENT WAS FASTINGP ERFORMED BY: CB [facility] Mndnkk8749 [address] [facility] [place] [id number] Cholesterol in LDL/Cholesterol in HDL [Mass ratio] 3.9 {ratio_units} Abnormal 0.0-3.6 [facility] Work Phone: Comment on above: PATIENT WAS FASTINGP ERFORMED BY: [facility] Zdpfpm6884 [address] [facility] [id number] Cholesterol in VLDL [Mass/Vol] 75 mg/dL Abnormal 5-40 [facility] Work Phone: Comment on above: PATIENT WAS FASTINGP ERFORMED BY: FERN [facility] Ehikfg3986 [facility] [id number] Triglyceride [Mass/Vol] 373 mg/dL Abnormal 0-149 [facility] Work Phone: Comment on above: PATIENT WAS FASTINGP ERFORMED BY: [facility] Nvgkeh6022 [facility] [id number] METABOLIC PANEL, COMPREHENSI VE (79382)Ordered By: Duplicator Punch Operator on 11-20-2012 Albumin [Mass/Vol] 5.1 g/dL Normal 3.5-5.5 Compre [facility] Internal Medicine Work Phone: Comment on above: PATIENT WAS FASTINGP ERFORMED BY: CB [facility] Qgysac1665 [address] [facility] [id number] Albumin/Globulin [Mass ratio] 1.6 {ratio} Normal 1.1-2.5 [facility] Work Phone: Comment on above: PATIENT WAS FASTINGP ERFORMED BY: FERN LabCotrent Dkfrcz9035 [address]ner RoadDublin [place] [id number] ALP [Catalytic activity/Vol] 106 [iU]/L Normal 25-150 [facility] Work Phone: Comment on above: PATIENT WAS FASTINGP ERFORMED BY: FERN [facility] Prvphh9811 [address] RoadDublin [place] [id number] ALP [Catalytic activity/Vol] 106 U/L Normal 25-150 [facility]; [facility] Work Phone: Comment on above: PATIENT WAS FASTINGP ERFORMED BY: FERN [facility] Mlgfod4713 [address] RoadDublin [place] [id number] ALT [Catalytic activity/Vol] 20 [iU]/L Normal 0-44 [facility] Work Phone: Comment on above: PATIENT WAS FASTINGP ERFORMED BY: FERN Maciaslin6370 [address] RoadDublin [place] [id number] ALT [Catalytic activity/Vol] 20 U/L Normal 0-44 [facility]; [facility] Work Phone: Comment on above: PATIENT WAS FASTINGP ERFORMED BY: FERN Maciaslin6370 [address] RoadDublin [place] [id number] AST [Catalytic activity/Vol] 17 [iU]/L Normal 0-40 [facility] Work Phone: Comment on above: PATIENT WAS FASTINGP ERFORMED BY: FERN [facility] Ysmlyi7804 [address] RoadDublin [place] [id number] AST [Catalytic activity/Vol] 17 U/L Normal 0-40 [facility]; [facility] Work Phone: Comment on above: PATIENT WAS FASTINGP ERFORMED BY: FERN [facility] Bmbinq2522 [address] RoadDublin [place] [id number] Bilirubin [Mass/Vol] 0.7 mg/dL Normal 0.0-1.2 Comp [facility] Internal Medicine Work Phone: Comment on above: PATIENT WAS FASTINGP ERFORMED BY: FERN [facility] Xqcpkb5977 [address]ner RoadDublin [place] [id number] Calcium [Mass/Vol] 10.1 mg/dL Normal 8.7-10.2 [facility] Internal Medicine Work Phone: Comment on above: PATIENT WAS FASTINGP ERFORMED BY: FERN [facility] Prleeo2930 [address] RoadDublin [place] [id number] Chloride [Moles/Vol] 97 mmol/L Normal 97-108 [facility] Work Phone: Comment on above: PATIENT WAS FASTINGP ERFORMED BY: CB [facility] Wqptia4764 [address] Roadblin [place] [id number] CO2 [Moles/Vol] 21 mmol/L Normal 20-32 [facility] Internal Medicine Work Phone: Comment on above: PATIENT WAS FASTINGP ERFORMED BY: [facility] Xsoxxf0001 Joyner RoadCarolinas ContinueCARE Hospital at Pineville [id number] Creatinine [Mass/Vol] 0.81 mg/dL Normal 0.76-1.27 [facility] Internal Medicine Work Phone: Comment on above: PATIENT WAS FASTINGP ERFORMED BY: [facility] Shdvlq8783 [address] RoadDuin [place] [id number] GFR/1.73 sq M predicted among blacks CKD-EPI (S/P/Bld) [Vol rate/Area] 133 mL/min/1.73 Normal [facility] Work Phone: Comment on above: PATIENT WAS FASTINGP ERFORMED BY: [facility] Ixiqfn7283 [address]ner RoadUnc Hospitals Hillsborough Campusin [place] [id number] GFR/1.73 sq M predicted among non-blacks CKD-EPI (S/P/Bld) [Vol rate/Area] 115 mL/min/1.73 Normal [facility] Work Phone: Comment on above: PATIENT WAS FASTINGP ERFORMED BY: [facility] Ncblnq2998 Joyner Roadblin [place] [id number] Globulin (S) [Mass/Vol] 3.1 g/dL Normal 1.5-4.5 [facility] Work Phone: Comment on above: PATIENT WAS FASTINGP ERFORMED BY: FERN Rosario6370 [address] RoadDublin [place] [id number] Glucose [Mass/Vol] 252 mg/dL Abnormal 65-99 [facility] Internal Medicine Work Phone: Comment on above: PATIENT WAS FASTINGP ERFORMED BY: FERN Rosario6370 [address] RoadDublin [place] [id number] Potassium [Moles/Vol] 4.2 mmol/L Normal 3.5-5.2 [facility] Internal Medicine Work Phone: Comment on above: PATIENT WAS FASTINGP ERFORMED BY: FERN Maciaslin6370 [address]ner RoadUnc Hospitals Hillsborough Campusin [place] [id number] Protein [Mass/Vol] 8.2 g/dL Normal 6.0-8.5 [facility] Internal Medicine Work Phone: Comment on above: PATIENT WAS FASTINGP ERFORMED BY: FERN Rosario6370 [address] [facility]in [place] [id number] Sodium [Moles/Vol] 136 mmol/L Normal 134-144 [facility] Internal Medicine Work Phone: Comment on above: PATIENT WAS FASTINGP ERFORMED BY: FERN Maciaslin6370 [address] [facility]in [place] [id number] Urea nitrogen [Mass/Vol] 12 mg/dL Normal 6-20 [facility] Internal Medicine Work Phone: Comment on above: PATIENT WAS FASTINGP ERFORMED BY: FERN Maciaslin6370 [address] [facility] [id number] Urea nitrogen/Creatinine [Mass ratio] 15 mg/mg Normal 8-19 [facility] Internal Medicine Work Phone: Comment on above: PATIENT WAS FASTINGP ERFORMED BY: FERN Maciaslin6370 [address] [facility]in [place] [id number] MICROALBUMINOrdered By: Syst em Plywood And Veneer Repairer on 11-20-2012 Albumin DL <= 20 mg/L (U) [Mass/Vol] 6.0 ug/mL Normal 0.0-17.0 [facility] Internal Medicine Work Phone: Comment on above: PATIENT WAS FASTINGP ERFORMED BY: [facility] Padhpl16[address] RoadDublin [place] [id number] Albumin/Creatinine (U) [Mass ratio] 6.6 {mg/g_creat} Normal 0.0-30.0 [facility] Internal Medicine Work Phone: Comment on above: PATIENT WAS FASTINGP ERFORMED BY: CB [facility] Zbdssz77[address] RoadDublin [place] [id number] Creatinine (U) [Mass/Vol] 90.6 mg/dL Normal 24.0-392.0 [facility] Work Phone: Comment on above: PATIENT WAS FASTINGP ERFORMED BY: CB [facility] Zcoxun77[address]Dublin [place] [id number] TSH ([id number])Ordered By: OneBuckResumee m Plywood And Veneer Repairer on 11-20-2012 TSH Qn 1.460 {uIU/mL} Normal 0.450-4.500 Comprehen [facility] Internal Medicine Work Phone: Comment on above: PATIENT WAS FASTINGP ERFORMED BY: CB [facility] Tlmdlt7337 [address] RoadDublin [place] [id number] Vitamin D Hydroxy ([id number])Ord ered By: Duplicator Punch Operator on 11-20-2012 25-Hydroxyvitamin D2+25-Hydroxyvitamin D3 [Mass/Vol] 19.6 ng/mL Abnormal 30.0-100.0 [facility] Work Phone: Comment on above: Vitamin D deficiency has been defined by the [place] [facility] and an Endocrine Society practice guideline as alevel of serum 25-OH vitamin D less than 20 ng/mL (1,2).The Endocrine Society went on to further define vitamin Dinsufficiency as a level between 21 and 29 ng/mL (2).1. IOM ([place] of Medicine). 2010. Dietary reference intakes for calcium and D. [place]: The National Academies Press.2. Aurelia MF, Freddy BENAVIDES, Emi AZAR, et al. Evaluation, treatment, and prevention of vitamin D deficiency: an Endocrine Society clinical practice guideline. JCEM. 2010; 96(7):1911-30. PATIENT WAS FASTINGP ERFORMED BY: CB [facility] Safoyy36[address] RoadDublin [place] [id number] HgA1C , Office ([id number])Ordere d By: Ava Tubbs on 10-17-2012 HbA1c (Bld) [Mass fraction] 7.2 % Abnormal 4.6 - 7.1 [facility] Work Phone: Comment on above: 7.2 CMPOrdered By: System Manage r on 07-20-2012 Albumin [Mass/Vol] 4.6 g/dL Normal 3.4-5.0 [facility] Internal Medicine Work Phone: Albumin/Globulin [Mass ratio] 1.2 {RATIO} Normal 0.9-2.4 [facility] Work Phone: ALP [Catalytic activity/Vol] 90 U/L Normal 50-136 [facility] Work Phone: ALT [Catalytic activity/Vol] 44 U/L Normal 12-78 [facility] Work Phone: Anion gap [Moles/Vol] 8 mmol/L Normal 5-15 [facility] prehensive Internal Medicine Work Phone: AST [Catalytic activity/Vol] 30 U/L Normal 15-37 [facility] Internal Medicine Work Phone: Bilirubin [Mass/Vol] 0.50 mg/dL Normal 0.00-1.00 [facility] rehensive Internal Medicine Work Phone: Calcium [Mass/Vol] 9.7 mg/dL Normal 8.5-10.1 [facility] Internal Medicine Work Phone: Chloride [Moles/Vol] 100 mmol/L Normal 98-107 [facility] rehensive Internal Medicine Work Phone: CO2 [Moles/Vol] 26.0 mmol/L Normal 21.0-32.0 [facility] Internal Medicine Work Phone: Creatinine [Mass/Vol] 0.9 mg/dL Normal 0.8-1.3 [facility] prehensive Internal Medicine Work Phone: GFR/1.73 sq M predicted among blacks MDRD (S/P/Bld) [Vol rate/Area] 124 mL/min/{1.73_m2} Normal Comprehensi ve Internal Medicine Work Phone: GFR/1.73 sq M.predicted MDRD (S/P/Bld) [Vol rate/Area] 102 mL/min/{1.73_m2} Normal Comprehensi ve Internal Medicine Work Phone: Globulin (S) [Mass/Vol] 3.7 g/dL Normal 2.7-4.2 [facility] Internal Medicine Work Phone: Glucose [Mass/Vol] 152 mg/dL Abnormal 70-110 [facility] Internal Medicine Work Phone: Comment on above: Fasting Glucose resu lt greater than or equal to 126 mg/dL suggests DIABETES MELLITUS per A.D.A. criteria. Potassium [Moles/Vol] 4.1 mmol/L Normal 3.5-5.1 Com prehensive Internal Medicine Work Phone: Protein [Mass/Vol] 8.3 g/dL Abnormal 6.4-8.2 [facility] Internal Medicine Work Phone: Sodium [Moles/Vol] 134 mmol/L Abnormal 136-145 [facility] Internal Medicine Work Phone: Urea nitrogen [Mass/Vol] 11 mg/dL Normal 7-18 [facility] Internal Medicine Work Phone: Urea nitrogen/Creatinine [Mass ratio] 12.2 {RATIO} Normal 10-20 [facility] Internal Medicine Work Phone: Blood Glucose , Office ([phone])Ordered By: Mayra Jorge on 07-18-2012 Glucose Glucometer (BldC) [Moles/Vol] HIgh Normal [facility] Internal Medicine Work Phone: Comment on above: Took 3 times, 2 diff erent glucometers, 531 at 2:[id number] at [id number] at 345pm attempted x 3 unable to [id number] at 2:30 pm415 at 310pm after 10units R insulin-this was checked with patient's own monitoragain checked at 415pm, after 2 bags NS and the xtra 5 u humalog - 329BS - still c/o blurred vision. CBCMDOrdered By: Dom epps on 07-18-2012 Erythrocyte distribution width (RBC) [Ratio] 12.3 % Normal 11.6-14.6 [facility] Internal Medicine Work Phone: Comment on above: DRAWN FROM IV Hematocrit (Bld) [Volume fraction] 44.0 % Normal 40-54 [facility] Work Phone: Comment on above: DRAWN FROM IV Hemoglobin (Bld) [Mass/Vol] 15.6 g/dL Normal 13.0-16.5 [facility] Internal Medicine Work Phone: Comment on above: DRAWN FROM IV MCH (RBC) [Entitic mass] 31.3 pg Normal 27.0-32.0 [facility] Internal Medicine Work Phone: Comment on above: DRAWN FROM IV MCHC (RBC) [Mass/Vol] 35.5 g/dL Normal 32-36 [facility] Internal Medicine Work Phone: Comment on above: DRAWN FROM IV MCV (RBC) [Entitic vol] 88.2 fL Normal 80-94 [facility] Internal Medicine Work Phone: Comment on above: DRAWN FROM IV Platelet mean volume (Bld) [Entitic vol] 11.4 fL Normal 6.2-12.0 [facility] Internal Medicine Work Phone: Comment on above: DRAWN FROM IV Platelets (Bld) [#/Vol] 274 10*3/uL Normal 150-450 [facility] Internal Medicine Work Phone: Comment on above: DRAWN FROM IV RBC (Bld) [#/Vol] 4.99 {M/mm3} Normal 4.6-6.2 [facility] Internal Medicine Work Phone: Comment on above: DRAWN FROM IV WBC (Bld) [#/Vol] 10.6 {k/mm3} Normal 4.4-11.0 [facility] Internal Medicine Work Phone: Comment on above: DRAWN FROM IV CBCMD 7.4 3/uL Normal 2.0-7.7 [facility] Internal Medicine Work Phone: Comment on above: DRAWN FROM IV CBCMD 0.030 3/ul Abnormal 0.0-0.0 [facility] Internal Medicine Work Phone: [...] Anion gap [Moles/Vol] 12 mmol/L Normal 5-15 [facility] prehensive Internal Medicine Work Phone: Comment on above: DRAWN FROM IVSPECIME N MODERATELY LIPEMIC AST [Catalytic activity/Vol] 21 U/L Normal 15-37 [facility] Work Phone: Comment on above: DRAWN FROM IVSPECIME N MODERATELY LIPEMIC Bilirubin [Mass/Vol] 0.40 mg/dL Normal 0.00-1.00 [facility] rehensive Internal Medicine Work Phone: Comment on above: DRAWN FROM IVSPECIME N MODERATELY LIPEMIC Calcium [Mass/Vol] 9.1 mg/dL Normal 8.5-10.1 [facility] Internal Medicine Work Phone: Comment on above: DRAWN FROM IVSPECIME N MODERATELY LIPEMIC Chloride [Moles/Vol] 92 mmol/L Abnormal 98-107 [facility] Work Phone: Comment on above: DRAWN FROM IVSPECIME N MODERATELY LIPEMIC CO2 [Moles/Vol] 27.0 mmol/L Normal 21.0-32.0 [facility] Internal Medicine Work Phone: Comment on above: DRAWN FROM IVSPECIME N MODERATELY LIPEMIC Creatinine [Mass/Vol] 1.1 mg/dL Normal 0.8-1.3 [facility] Internal Medicine Work Phone: Comment on above: [...] Globulin (S) [Mass/Vol] 3.1 g/dL Normal 2.7-4.2 [facility] Internal Medicine Work Phone: Comment on above: DRAWN FROM IVSPECIME N MODERATELY LIPEMIC Glucose [Mass/Vol] 541 mg/dL Abnormal 70-110 [facility] Internal Medicine Work Phone: Comment on above: Glucose result great er than or equal to 200 mg/dLsuggests DIABETES MELLITUS per A.D.A. criteria. DRAWN FROM IVSPECIME N MODERATELY LIPEMIC Potassium [Moles/Vol] 5.2 mmol/L Abnormal 3.5-5.1 [facility] prehensive Internal Medicine Work Phone: Comment on above: DRAWN FROM IVSPECIME N MODERATELY LIPEMIC Protein [Mass/Vol] 7.6 g/dL Normal 6.4-8.2 [facility] Internal Medicine Work Phone: Comment on above: DRAWN FROM IVSPECIME N MODERATELY LIPEMIC Sodium [Moles/Vol] 131 mmol/L Abnormal 136-145 [facility] Internal Medicine Work Phone: Comment on above: DRAWN FROM IVSPECIME N MODERATELY LIPEMIC Urea nitrogen [Mass/Vol] 14 mg/dL Normal 7-18 [facility] Work Phone: Comment on above: DRAWN FROM IVSPECIME N MODERATELY LIPEMIC Urea nitrogen/Creatinine [Mass ratio] 12.7 {RATIO} Normal 10-20 [facility] Work Phone: Comment on above: DRAWN FROM IVSPECIME N MODERATELY LIPEMIC HgA1C , Office ([phone])Ordere d By: Mayra Jorge on 07-18-2012 HbA1c (Bld) [Mass fraction] 8.7 % Abnormal 4.6 - 7.1 [facility] Work Phone: OSOrdered By: Duplicator Punch Operator on 07-18-2012 OS 309 {mOsm/KG} Abnormal 275-295 Comprehensi ve Internal Medicine Work Phone: Comment on above: DRAWN FROM IV Urinalysis, Office ([phone])Or dered By: Ava Tubbs on 07-18-2012 Bilirubin [...] [facility] Work Phone: LIPID PANEL ([id number])Ordered B y: Duplicator Punch Operator on 06-15-2012 Cholesterol [Mass/Vol] 188 mg/dL Normal 100-199 Co mprehensive Internal Medicine Work Phone: Comment on above: PATIENT WAS FASTINGP ERFORMED BY: [email or web address] [facility] [id number] Information: [id number] Cholesterol in HDL [Mass/Vol] 36 mg/dL Abnormal [facility] Work Phone: Comment on above: According to ATP-III Guidelines, HDL-C >59 mg/dL is considered anegative risk factor for CHD. PATIENT WAS FASTINGP ERFORMED BY: [email or web address] [facility] HostingCarolinas [facility] [id number] Information: [id number] Cholesterol in VLDL [Mass/Vol] VLDLCH Normal 5-40 [facility] Work Phone: Comment on above: The calculation for the VLDL cholesterol is not valid whentriglyceride level is >400 mg/dL.Triglyceride result indicated is too high for an accurate LDLcholesterol estimation. PATIENT WAS FASTINGP ERFORMED BY: [employer]70 [facility] [id number] Information: [id number] Triglyceride [Mass/Vol] 452 mg/dL Abnormal 0-149 [facility] Work Phone: Comment on above: PATIENT WAS FASTINGP ERFORMED BY: [employer]70 [facility] CompanionErl[facility] [id number] Information: [id number] Hep A Ab, TotalOrdered By: S ystem Plywood And Veneer Repairer on 05-16-2012 HAV Ab IA Ql (S) Negative Normal Comprehe nsive Internal Medicine Work Phone: Comment on above: PERFORMED BY: Bit Cauldron6370 Vers[facility] Christian CompanionErl[facility] [id number] Hep B Surface AbOrdered By: Duplicator Punch Operator on 05-16-2012 HBV surface Ab PINEDA [...] total amount of antibody present. PERFORMED BY: Bit Cauldron6370 [facility]ionE[facility] [id number] Measles/Mumps/Rubella Immuni tyOrdered By: Duplicator Punch Operator on 05-16-2012 Measles/Mumps/Rubella Immunity 10 {IU/mL} Normal [facility] Work Phone: Comment on above: Non-immune <5 Equivo hilda 5 - 9 Immune >9 PERFORMED BY: [facility] Sciencelin6370 [employer] [facility]ingCarolin[facility] [id number] Measles/Mumps/Rubella Immunity 1.52 {index} Abnormal 0.00-0.90 [facility] Work Phone: Comment on above: Negative <0.91 Equiv ocal 0.91 - 1.09 Positive >1.09 . Presence of antibodies to Rubeola is presumptive evidence of immunity except when active infection is suspected. PERFORMED BY: Bit Cauldron6370 [facility] Christian CompanionE[facility] [id number] Measles/Mumps/Rubella Immunity 1.92 {index} Abnormal 0.00-0.90 [facility] Work Phone: Comment on above: Negative <0.91 Equiv ocal 0.91 - 1.09 Positive >1.09 Presence of antibodies to Mumps is presumptive evidence of immunity except when active infection is suspected. PERFORMED BY: Depop70 [facility]ingCar[facility] [id number] Varicella-Zoster V Ab, IgGOr dered By: Duplicator Punch Operator on 05-16-2012 Varicella-Zoster V Ab, IgG 1.86 {index} Normal [facility] Work Phone: Comment on above: Nonimmune <0.91 Equi vocal 0.91 - 1.09 Immune >1.09 PERFORMED BY: [facility] Sciencelin6[address] [facility] [id number] HgA1C , Office ([id number])Ordere d By: Ava Tubbs on 09-13-2011 HbA1c (Bld) [Mass fraction] 5.8 % Normal 4.6 - 7.1 [facility] Work Phone: PSA (PROSTATE SPECIFIC ANTIG EN) ([id number])Ordered By: Duplicator Punch Operator on 09-13-2011 Prostate specific Ag [Mass/Vol] 1.1 ng/mL Normal 0.0-4.0 [facility] Work Phone: Comment on above: Elliot ECLIA methodol ogy. .According to the [place] [employer], Serum PSA shoulddecrease and remain [...] disease. PATIENT NOT FASTINGP ERFORMED BY: [facility] Uqmyxj4563 [address] RoadDublin [place] [id number] Information: [id number] Comp. Metabolic Panel (14)Or dered By: Duplicator Punch Operator on 09-02-2011 Albumin [Mass/Vol] 4.8 g/dL Normal 3.5-5.5 [facility] Internal Medicine Work Phone: Comment on above: PATIENT WAS FASTINGP ERFORMED BY: [facility] Wjeftt5103 [address]Dublin [place] [id number] Albumin/Globulin [Mass ratio] 1.5 {ratio} Normal 1.1-2.5 [facility] Work Phone: Comment on above: PATIENT WAS FASTINGP ERFORMED BY: [facility] Qdduwt0878 [address] RoadDublin [place] [id number] ALP [Catalytic activity/Vol] 64 [iU]/L Normal 25-150 [facility] Work Phone: Comment on above: PATIENT WAS FASTINGP ERFORMED BY: [facility] Tqyjfg3169 [address] RoadDublin [place] [id number] ALT [Catalytic activity/Vol] 44 [iU]/L Normal 0-55 [facility] Work Phone: Comment on above: PATIENT WAS FASTINGP ERFORMED BY: [facility] Vvijhl1479 [address] RoadDublin [place] [id number] AST [Catalytic activity/Vol] 34 [iU]/L Normal 0-40 [facility] Work Phone: Comment on above: PATIENT WAS FASTINGP ERFORMED BY: [facility] Pucokg8254 [address] RoadDublin [place] [id number] Bilirubin [Mass/Vol] 0.5 mg/dL Normal 0.0-1.2 [facility] Work Phone: Comment on above: PATIENT WAS FASTINGP ERFORMED BY: CB [facility] Mnhaqs9558 [address] RoadDublin [place] [id number] Calcium [Mass/Vol] 9.7 mg/dL Normal 8.7-10.2 [facility] Internal Medicine Work Phone: Comment on above: PATIENT WAS FASTINGP ERFORMED BY: CB [facility] Kzyxry4212 [address] RoadDublin [place] [id number] Chloride [Moles/Vol] 101 mmol/L Normal 97-108 [facility] Work Phone: Comment on above: PATIENT WAS FASTINGP ERFORMED BY: CB [facility] Bfvyjh6538 [address] RoadDublin [place] [id number] CO2 [Moles/Vol] 24 mmol/L Normal 20-32 Comprehen [facility] Internal Medicine Work Phone: Comment on above: PATIENT WAS FASTINGP ERFORMED BY: CB [facility] Zqjerc3711 [address]Dublin [place] [id number] Creatinine [Mass/Vol] 0.99 mg/dL Normal 0.76-1.27 [facility] Internal Medicine Work Phone: Comment on above: PATIENT WAS FASTINGP ERFORMED BY: CB [facility] Vxibgt0755 Joyner RoadDuin [place] [id number] GFR/1.73 sq M predicted among blacks MDRD (S/P/Bld) [Vol rate/Area] 114 mL/min/{1.73_m2} Normal [facility] Internal [facility] Work Phone: Comment on above: Note: A persistent e GFR <60 mL/min/1.73 m2 (3 months or more) mayindicate chronic kidney disease. An eGFR >59 mL/min/1.73 m2 with anelevated urine protein also may indicate chronic kidney disease.Calculated using CKD-EPI formula. PATIENT WAS FASTINGP ERFORMED BY: CB [facility] Spzuae5279 [address] RoadDublin [place] [id number] GFR/1.73 sq M predicted among non-blacks CKD-EPI (S/P/Bld) [Vol rate/Area] 99 mL/min/1.73 Normal [facility] Internal Medicine Work Phone: Comment on above: PATIENT WAS FASTINGP ERFORMED BY: FERN [facility] Muopxl8379 [address] RoadDublin [place] [id number] Globulin (S) [Mass/Vol] 3.1 g/dL Normal 1.5-4.5 [facility] Internal Medicine Work Phone: Comment on above: PATIENT WAS FASTINGP ERFORMED BY: CB [facility] Rsjlrp6486 Joy[address] Roadblin [place] [id number] Glucose [Mass/Vol] 74 mg/dL Normal 65-99 [facility] Internal Medicine Work Phone: Comment on above: PATIENT WAS FASTINGP ERFORMED BY: FERN [facility] Blclud7911 [address]Duin [place] [id number] Potassium [Moles/Vol] 4.4 mmol/L Normal 3.5-5.2 [facility] Internal Medicine Work Phone: Comment on above: PATIENT WAS FASTINGP ERFORMED BY: FERN [facility] Yaueyd4254 Joyner RoadUnc Hospitals Hillsborough Campusin [place] [id number] Protein [Mass/Vol] 7.9 g/dL Normal 6.0-8.5 [facility] Internal Medicine Work Phone: Comment on above: PATIENT WAS FASTINGP ERFORMED BY: [facility] Qjeuux6192 [address] RoadDublin [place] [id number] Sodium [Moles/Vol] 139 mmol/L Normal 134-144 [facility] Internal Medicine Work Phone: Comment on above: PATIENT WAS FASTINGP ERFORMED BY: [facility] Jhlqgq4453 [address] RoadDublin [place] [id number] Urea nitrogen [Mass/Vol] 10 mg/dL Normal 6-20 [facility] Internal Medicine Work Phone: Comment on above: PATIENT WAS FASTINGP ERFORMED BY: FERN [facility] Eoghdm4913 [address] RoadDublin [place] [id number] Urea nitrogen/Creatinine [Mass ratio] 10 mg/mg Normal 8-19 [facility] Internal Medicine Work Phone: Comment on above: PATIENT WAS FASTINGP ERFORMED BY: CB [facility] Sufdnl8173 [address] RoadDublin [place] [id number] Lipid Panel With LDL/HDL Rat ioOrdered By: Duplicator Punch Operator on 09-02-2011 Cholesterol [Mass/Vol] 251 mg/dL Abnormal 100-199 [facility] Internal Medicine Work Phone: Comment on above: PATIENT WAS FASTINGP ERFORMED BY: CB [facility] Opoxso5756 [address] RoadDublin [place] [id number] Cholesterol in HDL [Mass/Vol] 40 mg/dL Normal [facility] Work Phone: Comment on above: According to ATP-III Guidelines, HDL-C >59 mg/dL is considered anegative risk factor for CHD. PATIENT WAS FASTINGP ERFORMED BY: FERN [facility] Cxyopt0396 [address] RoadDublin [place] [id number] Cholesterol in LDL [Mass/Vol] 166 mg/dL Abnormal 0-99 [facility] Work Phone: Comment on above: PATIENT WAS FASTINGP ERFORMED BY: CB [facility] Qmfqus3013 [address]Dublin [place] [id number] Cholesterol in LDL/Cholesterol in HDL [Mass ratio] 4.2 {ratio_units} Abnormal 0.0-3.6 [facility] Work Phone: Comment on above: PATIENT WAS FASTINGP ERFORMED BY: CB [facility] Ixmjhi5644 [address] RoadDublin [place] [id number] Cholesterol in VLDL [Mass/Vol] 45 mg/dL Abnormal 5-40 [facility] Work Phone: Comment on above: PATIENT WAS FASTINGP ERFORMED BY: CB [facility] Adfxdl3801 [address] RoadDublin [place] [id number] Triglyceride [Mass/Vol] 225 mg/dL Abnormal 0-149 [facility] Work Phone: Comment on above: PATIENT WAS FASTINGP ERFORMED BY: CB [facility] Xbvdki6798 [address] RoadDublin [place] [id number] Vitamin D, 25-HydroxyOrdered By: Duplicator Punch Operator on 09-02-2011 25-Hydroxyvitamin D2+25-Hydroxyvitamin D3 [Mass/Vol] 11.6 ng/mL Abnormal 30.0-100.0 [facility] Work Phone: Comment on above: Vitamin D deficiency has been defined by the [place] of[place]icine and an Endocrine Society practice guideline as alevel of serum 25-OH vitamin D less than 20 ng/mL (1,2).The Endocrine Society went on to further define vitamin Dinsufficiency as a level between 21 and 29 ng/mL (2).1. IOM ([place] of Medicine). 2010. Dietary reference intakes for calcium and D. [place]: The National Academies Press.2. Aurelia MF, Freddy BENAVIDES, Emi AZAR, et al. Evaluation, treatment, and prevention of vitamin D deficiency: an Endocrine Society clinical practice guideline. JCEM. 2010; 96(7):1911-30. PATIENT WAS FASTINGP ERFORMED BY: [employer] LabLiveNinja Qetrgr6305 Versie Christian Companionin [place] [id number] LIPID PANEL ([id number])Ordered B y: Duplicator Punch Operator on 02-01-2011 Cholesterol [Mass/Vol] 238 mg/dL Abnormal 100-199 [facility] Internal Medicine Work Phone: Comment on above: PATIENT WAS FASTINGP ERFORMED BY: [employer] [facility] Nfzqyj8617 [address] PathARblin [place] [id number] Cholesterol in HDL [Mass/Vol] 43 mg/dL Normal [facility] Work Phone: Comment on above: According to ATP-III Guidelines, HDL-C >59 mg/dL is considered anegative risk factor for CHD. PATIENT WAS FASTINGP ERFORMED BY: CB [facility] Gihtjb8707 [address] PathARblin [place] [id number] Cholesterol in LDL [Mass/Vol] 158 mg/dL Abnormal 0-99 [facility] Work Phone: Comment on above: PATIENT WAS FASTINGP ERFORMED BY: [employer] LabLiveNinja Ykxdgd[address] Radient PharmaceuticalsDuin [place] [id number] Cholesterol in LDL/Cholesterol in HDL [Mass ratio] 3.7 {ratio_units} Abnormal 0.0-3.6 [facility] Work Phone: Comment on above: PATIENT WAS FASTINGP ERFORMED BY: FERN [facility] Esoiib2132 [address] RoadDublin [place] [id number] Cholesterol in VLDL [Mass/Vol] 37 mg/dL Normal 5-40 [facility] Work Phone: Comment on above: PATIENT WAS FASTINGP ERFORMED BY: FERN [facility] Cdsmtk2094 [address] RoadDublin [place] [id number] Triglyceride [Mass/Vol] 185 mg/dL Abnormal 0-149 [facility] Work Phone: Comment on above: PATIENT WAS FASTINGP ERFORMED BY: FERN [facility] Dlznfo2595 [address] RoadDublin [place] [id number] METABOLIC PANEL, COMPREHENSI VE ([id number])Ordered By: Duplicator Punch Operator on 02-01-2011 Albumin [Mass/Vol] 4.7 g/dL Normal 3.5-5.5 [facility] Internal Medicine Work Phone: Comment on above: PATIENT WAS FASTINGP ERFORMED BY: FERN [facility] Zfzuep8408 [address] RoadDublin [place] [id number] Information: [id number], NURSE DRAW Albumin/Globulin [Mass ratio] 1.5 {ratio} Normal 1.1-2.5 [facility] Work Phone: Comment on above: PATIENT WAS FASTINGP ERFORMED BY: FERN [facility] Immuid3655 [address] RoadDublin [place] [id number] Information: [id number], NURSE DRAW ALP [Catalytic activity/Vol] 69 [iU]/L Normal 25-150 [facility] Work Phone: Comment on above: PATIENT WAS FASTINGP ERFORMED BY: CB [facility] Jwuhmr9529 [address] RoadDublin [place] [id number] Information: [id number], NURSE DRAW ALP [Catalytic activity/Vol] 69 U/L Normal 25-150 [facility]; [facility] Work Phone: Comment on above: PATIENT WAS FASTINGP ERFORMED BY: CB [facility] Szvkxy5203 [address] RoadDublin [place] [id number] Information: [id number], NURSE DRAW ALT [Catalytic activity/Vol] 32 [iU]/L Normal 0-55 [facility] Work Phone: Comment on above: PATIENT WAS FASTINGP ERFORMED BY: [place]Ke[place] [id number] [facility] [id number] Information: [id number], NURSE DRAW ALT [Catalytic activity/Vol] 32 U/L Normal 0-55 [facility]; [facility] Work Phone: Comment on above: PATIENT WAS FASTINGP ERFORMED BY: [address] [id number] Information: [id number], NURSE DRAW AST [Catalytic activity/Vol] 30 [iU]/L Normal 0-40 [facility] Work Phone: Comment on above: PATIENT WAS FASTINGP ERFORMED BY: [address] [id number] Information: [id number], NURSE DRAW AST [Catalytic activity/Vol] 30 U/L Normal 0-40 [facility]; [facility] Work Phone: Comment on above: PATIENT WAS FASTINGP ERFORMED BY: [place] [id number] [facility] [id number] Information: [id number], NURSE DRAW Bilirubin [Mass/Vol] 0.5 mg/dL Normal 0.0-1.2 [facility] Internal Medicine Work Phone: Comment on above: PATIENT WAS FASTINGP ERFORMED BY: [address] [id number] Information: [id number], NURSE DRAW Calcium [Mass/Vol] 10.0 mg/dL Normal 8.7-10.2 [facility] Internal [facility] Work Phone: Comment on above: PATIENT WAS FASTINGP ERFORMED BY: [place] [id number] [facility] [id number] Information: [id number], NURSE DRAW Chloride [Moles/Vol] 102 mmol/L Normal 97-108 [facility] rehensive Internal Medicine Work Phone: Comment on above: PATIENT WAS FASTINGP ERFORMED BY: [facility]CoNewton [facility] CenterHsndti8635 [facility] [id number] Information: [id number], NURSE DRAW CO2 [Moles/Vol] 23 mmol/L Normal 20-32 Comprehen sive Internal Medicine Work Phone: Comment on above: PATIENT WAS FASTINGP ERFORMED BY: [facility]6370 [facility] [id number] Information: [id number], NURSE DRAW Creatinine [Mass/Vol] 1.15 mg/dL Normal 0.76-1.27 [facility] Internal Medicine Work Phone: Comment on above: PATIENT WAS FASTINGP ERFORMED BY: [address] [id number] Information: [id number], NURSE DRAW GFR/1.73 sq M predicted among blacks MDRD (S/P/Bld) [Vol rate/Area] 96 mL/min/{1.73_m2} Normal Comprehensiv e Internal Medicine Work Phone: Comment on above: Note: A persistent e GFR <60 mL/min/1.73 m2 (3 months or more) mayindicate chronic kidney disease. An eGFR >59 mL/min/1.73 m2 with anelevated urine protein also may indicate chronic kidney disease.Calculated using CKD-EPI formula. PATIENT WAS FASTINGP ERFORMED BY: [facility]6370 [facility] [id number] Information: [id number], NURSE DRAW GFR/1.73 sq M predicted among non-blacks CKD-EPI (S/P/Bld) [Vol rate/Area] 83 mL/min/1.73 Normal [facility] Work Phone: Comment on above: PATIENT WAS FASTINGP ERFORMED BY: [facility]CoNewton [facility] CenterIbvenu7723 [facility] [id number] Information: [id number], NURSE DRAW Globulin (S) [Mass/Vol] 3.1 g/dL Normal 1.5-4.5 [facility] Internal Medicine Work Phone: Comment on above: PATIENT WAS FASTINGP ERFORMED BY: FERN Ron Gchfey7000 [facility] [id number] Information: [id number], NURSE DRAW Glucose [Mass/Vol] 95 mg/dL Normal 65-99 [facility] Internal Medicine Work Phone: Comment on above: PATIENT WAS FASTINGP ERFORMED BY: Chris[address] [id number] Information: [id number], NURSE DRAW Potassium [Moles/Vol] 4.5 mmol/L Normal 3.5-5.2 [facility] Internal Medicine Work Phone: Comment on above: PATIENT WAS FASTINGP ERFORMED BY: [address] [id number] Information: [id number], NURSE DRAW Protein [Mass/Vol] 7.8 g/dL Normal 6.0-8.5 [facility] Internal Medicine Work Phone: Comment on above: PATIENT WAS FASTINGP ERFORMED BY: FERN [address] [id number] Information: [id number], NURSE DRAW Sodium [Moles/Vol] 139 mmol/L Normal 135-145 [facility] Internal Medicine Work Phone: Comment on above: PATIENT WAS FASTINGP ERFORMED BY: [place] [id number] [facility] [id number] Information: [id number], NURSE DRAW Urea nitrogen [Mass/Vol] 13 mg/dL Normal 6-20 [facility] Internal Medicine Work Phone: Comment on above: PATIENT WAS FASTINGP ERFORMED BY: Chris[address] [id number] Information: [id number], NURSE DRAW Urea nitrogen/Creatinine [Mass ratio] 11 mg/mg Normal 8-19 [facility] Internal Medicine Work Phone: Comment on above: PATIENT WAS FASTINGP ERFORMED BY: [facility]6370 [facility] [id number] Information: [id number], NURSE DRAW Vital Signs Date Time Vital Sign Value Performing Clinician Facility 02-28-2025 07:59-0400 Body height 162.[address] Tawanna Pickard DO Work Phone: [facility] 02-28-2025 07:59-0400 Body mass index (BMI) [Ratio] 34.8 kg/m2 Dr. Tawanna Pickard DO Work Phone: [facility] 02-28-2025 07:59-0400 Body weight 92.[address] Tawanna Pickard DO Work Phone: [facility] 02-28-2025 07:59-0400 Diastolic blood pressure 74 mm[Hg] Dr. Tawanna Pickard DO Work Phone: [facility] 02-28-2025 07:59-0400 Heart rate 58 /min Dr. Tawanna Pickard DO Work Phone: [facility] 02-28-2025 07:59-0400 SaO2% (BldA) [Mass fraction] 97 % Dr. Tawanna Pickard DO Work Phone: [facility] 02-28-2025 07:59-0400 Systolic blood pressure 136 mm[Hg] Dr. Tawanna Pickard DO Work Phone: [facility] 10-27-2023 08:01-0400 Body height 162.[address] Tawanna Pickard Work Phone: [facility] 10-27-2023 08:01-0400 Body mass index (BMI) [Ratio] 38 kg/m2 Dr. Tawanna Pickard Work Phone: [facility] 10-27-2023 08:01-0400 Body temperature 98.6 [degF] Dr. Tawanna Pickard Work Phone: [facility] 10-27-2023 08:01-0400 Body weight 100.[address] Tawanna Fast Work Phone: [facility] 10-27-2023 08:01-0400 Diastolic blood pressure 70 mm[Hg] Dr. Stacy Fast Work Phone: [facility] 10-27-2023 08:01-0400 Heart rate 60 /min Dr. Stacy Fast Work Phone: [facility] 10-27-2023 08:01-0400 SaO2% (BldA) [Mass fraction] 95 % Dr. Stacy Fast Work Phone: [facility] 10-27-2023 08:01-0400 Systolic blood pressure 144 mm[Hg] Dr. Stacy Fast Work Phone: [facility] 10-28-2022 07:56-0400 Body weight 94.35 [...] 01-14-2022 07:55-0400 Body height 167.64 cm [facility] Work Phone: 01-14-2022 07:55-0400 Body mass index (BMI) [Ratio] 33.89 kg/m2 [facility]; [facility] Work Phone: 01-14-2022 07:55-0400 Body surface area Derived from formula 2.04 m2 [facility]; [facility] Work Phone: 01-14-2022 07:55-0400 Body temperature 97 [degF] [facility]; [facility] Work Phone: Comment on above: Method: Thermal Scan 01-14-2022 07:55-0400 Body weight 95.26 [facility]; [facility] Work Phone: 01-14-2022 07:55-0400 Diastolic blood pressure 82 mm[Hg] Eun Arrington [facility]; [facility] Work Phone: Comment on above: Patient Position: Sitting; Cuff Location : Left Arm; Cuff Size: Standard 01-14-2022 07:55-0400 Heart rate 70 /min Eun Arrington [facility]; [facility] Work Phone: Comment on above: Pattern: Regular 01-14-2022 07:55-0400 Respiratory rate 16 /min Eun Arrington [facility]; [facility] Work Phone: Comment on above: Pattern: Unlabored 01-14-2022 07:55-0400 Systolic blood pressure 135 mm[Hg] Eun Arrington [facility]; [facility] Work Phone: Comment on above: Patient Position: Sitting; Cuff Location : Left Arm; Cuff Size: Standard 09-10-2021 11:18-0500 Body height 167.64 cm Eun Arrington [facility]; [facility] Work Phone: 09-10-2021 11:18-0500 Body mass index (BMI) [Ratio] 32.44 kg/m2 Eun Arrington [facility]; [facility] Work Phone: 09-10-2021 11:18-0500 Body surface area Derived from formula 2 m2 Eun Arrington [facility]; [facility] Work Phone: 09-10-2021 11:18-0500 Body temperature 96.9 [degF] Eun Arrington [facility]; [facility] Work Phone: Comment on above: Method: Thermal Scan 09-10-2021 11:18-0500 Body weight 91.17 kg Eun Arrington [facility]; [facility] Work Phone: 09-10-2021 11:18-0500 Diastolic blood pressure 68 mm[Hg] Eun Arrington [facility]; [facility] Work Phone: Comment on above: Patient Position: Sitting; Cuff Location : Left Arm; Cuff Size: Standard 09-10-2021 11:18-0500 Heart rate 74 /min Eun Arrington [facility]; [facility] Work Phone: Comment on above: Pattern: Regular 09-10-2021 11:18-0500 Respiratory rate 16 /min Eun Arrington [facility] Internal Medicine; [facility] Work Phone: Comment on above: Pattern: Unlabored 09-10-2021 11:18-0500 Systolic blood pressure 122 mm[Hg] Eun Arrington [facility]; [facility] Work Phone: Comment on above: Patient Position: Sitting; Cuff Location : Left Arm; Cuff Size: Standard 05-17-2021 08:25-0500 Body height 167.64 cm Eun Arrington [facility]; [facility] Work Phone: 05-17-2021 08:25-0500 Body mass index (BMI) [Ratio] 32.44 kg/m2 Eun Arrington [facility]; [facility] Work Phone: 05-17-2021 08:25-0500 Body surface area Derived from formula 2 m2 Eun Arrington [facility]; [facility] Work Phone: 05-17-2021 08:25-0500 Body temperature 97.1 [degF] Eun Arrington [facility]; [facility] Work Phone: Comment on above: Method: Thermal Scan 05-17-2021 08:25-0500 Body weight 91.17 kg Eun Arrington [facility]; [facility] Work Phone: 05-17-2021 08:25-0500 Diastolic blood pressure 70 mm[Hg] Eun Arrington [facility]; [facility] Work Phone: Comment on above: Patient Position: Sitting; Cuff Location : Left Arm; Cuff Size: Standard 05-17-2021 08:25-0500 Heart rate 88 /min Eun Arrington [facility]; [facility] Work Phone: Comment on above: Pattern: Regular 05-17-2021 08:25-0500 Respiratory rate 16 /min Eun Arrington [facility]; [facility] Work Phone: Comment on above: Pattern: Unlabored 05-17-2021 08:25-0500 Systolic blood pressure 126 mm[Hg] Eun Arrington [facility]; [facility] Work Phone: Comment on above: Patient Position: Sitting; Cuff Location : Left Arm; Cuff Size: Standard 11-18-2020 09:54-0400 Body height 167.64 cm Eun Arrington [facility]; [facility] Work Phone: 11-18-2020 09:54-0400 Body mass index (BMI) [Ratio] 32.44 kg/m2 Eun Arrington [facility]; [facility] Work Phone: 11-18-2020 09:54-0400 Body surface area Derived from formula 2 m2 Eun Arrington [facility]; [facility] Work Phone: 11-18-2020 09:54-0400 Body temperature 97.1 [degF] Eun Arrington [facility]; [facility] Work Phone: Comment on above: Method: Thermal Scan 11-18-2020 09:54-0400 Body weight 91.17 kg Eun Arrington [facility]; [facility] Work Phone: 11-18-2020 09:54-0400 Diastolic blood pressure 70 mm[Hg] Eun Arrington [facility]; [facility] Work Phone: Comment on above: Patient Position: Sitting; Cuff Location : Left Arm; Cuff Size: Standard 11-18-2020 09:54-0400 Heart rate 70 /min Eun Arrington [facility]; [facility] Work Phone: Comment on above: Pattern: Regular 11-18-2020 09:54-0400 Respiratory rate 16 /min Eun Arrington [facility]; [facility] Work Phone: Comment on above: Pattern: Unlabored 11-18-2020 09:54-0400 Systolic blood pressure 120 mm[Hg] Eun Arrington [facility]; [facility] Work Phone: Comment on above: Patient Position: Sitting; Cuff Location : Left Arm; Cuff Size: Standard 07-15-2020 09:42-0500 BMI (Body Mass Index) 32.44 kg/m2 Eun Arrington [facility]; [facility] Work Phone: 07-15-2020 09:42-0500 Body Temperature 96.9 [degF] Eun Arrington [facility]; [facility] Work Phone: Comment on above: Method: Thermal Scan 07-15-2020 09:42-0500 Body weight 91.17 kg Eun Arrington [facility]; [facility] Work Phone: 07-15-2020 09:42-0500 BP Diastolic 70 mm[Hg] Eun Arrington [facility]; [facility] Work Phone: Comment on above: Patient Position: Sitting; Cuff Location : Left Arm; Cuff Size: Standard 07-15-2020 09:42-0500 BP Systolic 126 mm[Hg] Eun Arrington [facility]; [facility] Work Phone: Comment on above: Patient Position: Sitting; Cuff Location : Left Arm; Cuff Size: Standard 07-15-2020 09:42-0500 BSA (Body Surface Area) 2 m2 Eun Arrington [facility]; [facility] Work Phone: 07-15-2020 09:42-0500 Height 167.64 cm Eun Arrington [facility]; [facility] Work Phone: 07-15-2020 09:42-0500 Pulse (Heart Rate) 75 /min Eun Arrington [facility]; [facility] Work Phone: Comment on above: Pattern: Regular 07-15-2020 09:42-0500 Respiratory Rate 16 /min Eun Arrington [facility] Internal Medicine; [facility] Work Phone: Comment on above: Pattern: Unlabored 04-07-2020 08:56-0400 BMI (Body Mass Index) 33.09 kg/m2 Eun Arrington [facility] Work Phone: 04-07-2020 08:56-0400 Body Temperature 97.3 [degF] Eun Arrington [facility] Internal Medicine Work Phone: Comment on above: Method: Thermal Scan 04-07-2020 08:56-0400 Body weight 92.99 kg Eun Arrington [facility] Work Phone: 04-07-2020 08:56-0400 BP Diastolic 70 mm[Hg] Eun Arrington [facility] Work Phone: Comment on above: Patient Position: Sitting; Cuff Location : Left Arm; Cuff Size: Standard 04-07-2020 08:56-0400 BP Systolic 124 mm[Hg] Eun Arrington [facility] Work Phone: Comment on above: Patient Position: Sitting; Cuff Location : Left Arm; Cuff Size: Standard 04-07-2020 08:56-0400 BSA (Body Surface Area) 2.02 m2 Eun Arrington [facility] Work Phone: 04-07-2020 08:56-0400 Height 167.64 cm Eun Arrington [facility] Work Phone: 04-07-2020 08:56-0400 Pulse (Heart Rate) 71 /min Eun Arrington [facility] Internal Medicine Work Phone: Comment on above: Pattern: Regular 04-07-2020 08:56-0400 Respiratory Rate 16 /min Eun Arrington [facility] Work Phone: [...] (Body Mass Index) 34.28 kg/m2 Marilee Slarb [employer]ACILITY SERVICE ASSOCIATE [facility] Work Phone: 05-13-2019 09:38-0500 Body Temperature 97 [degF] Marilee Slarb [employer]ILITY SERVICE ASSOCIATE [facility] Work Phone: 05-13-2019 09:38-0500 Body weight 96.33 kg Marilee Slarb [employer]ACILITY SERVICE ASSOCIATE [facility] Work Phone: 05-13-2019 09:38-0500 BP Diastolic 82 mm[Hg] Marilee Slarb FACILITY SERVICE ASSOCIATE [facility] Work Phone: Comment on above: Patient Position: Sitting; Cuff Location : Left Arm; Cuff Size: Standard 05-13-2019 09:38-0500 BP Systolic 132 mm[Hg] Marilee Slarb FACILITY SERVICE ASSOCIATE [facility] Work Phone: Comment on above: Patient Position: Sitting; Cuff Location : Left Arm; Cuff Size: Standard 05-13-2019 09:38-0500 BSA (Body Surface Area) 2.05 m2 Marilee Slarb FACILITY SERVICE ASSOCIATE [facility] Work Phone: 05-13-2019 09:38-0500 Height 167.64 cm Marilee Slarb FACILITY SERVICE ASSOCIATE [facility] Work Phone: 05-13-2019 09:38-0500 Pulse (Heart Rate) 76 /min Marilee Slarb F[employer]ILITY SERVICE ASSOCIATE Comprehensiv e Internal Medicine Work Phone: Comment on above: Pattern: Regular 05-13-2019 09:38-0500 Pulse Oximetry 96 % Tawanna Fast [facility] Work Phone: Comment on above: Room air 05-13-2019 09:38-0500 Respiratory Rate 16 /min Marilee Slarb FACILITY SERVICE ASSOCIATE [facility] Work Phone: Comment on above: Pattern: Unlabored 05-13-2019 09:38-0500 SaO2% (BldA) [Mass fraction] 96 % Marilee Hairston NATHALIE [facility] Internal Medicine; [facility] Work Phone: Comment on above: Room air 12-07-2018 09:13-0400 BMI (Body Mass Index) 33.25 kg/m2 Eun Arrington [facility] Internal Medicine Work Phone: 12-07-2018 09:13-0400 Body Temperature 97.6 [degF] Eun Arrington [facility] Internal Medicine Work Phone: Comment on above: Method: Temporal 12-07-2018 09:13-0400 Body weight 93.44 kg Eun Arrington [facility] Internal Medicine Work Phone: 12-07-2018 09:13-0400 BP Diastolic 72 mm[Hg] Eun Arrington [facility] Internal Medicine Work Phone: Comment on above: Patient Position: Sitting; Cuff Location : Left Arm; Cuff Size: Standard 12-07-2018 09:13-0400 BP Systolic 130 mm[Hg] Eun Arrington [facility] Internal Medicine Work Phone: Comment on above: Patient Position: Sitting; Cuff Location : Left Arm; Cuff Size: Standard 12-07-2018 09:13-0400 BSA (Body Surface Area) 2.03 m2 Eun Arrington [facility] Internal Medicine Work Phone: 12-07-2018 09:13-0400 Height 167.64 cm Eun Arrington [facility] Internal Medicine Work Phone: 12-07-2018 09:13-0400 Pulse (Heart Rate) 70 /min Eun Arrington [facility] Internal Medicine Work Phone: Comment on above: Pattern: Regular 12-07-2018 09:13-0400 Respiratory Rate 16 /min Eun Arrington [facility] Internal Medicine Work Phone: Comment on above: Pattern: Unlabored 12-07-2018 09:13-0400 Weight 93.44 kg Tawanna Neeraj [facility] Internal Medicine Work Phone: 08-27-2018 07:55-0500 BMI (Body Mass Index) 34.06 kg/m2 Eun Arrington [facility] Internal Medicine Work Phone: 08-27-2018 07:55-0500 Body Temperature 97.1 [degF] Eun Arrington [facility] Internal Medicine Work Phone: Comment on above: Method: Temporal 08-27-2018 07:55-0500 Body weight 95.71 kg Eun Arrington [facility] Internal Medicine Work Phone: 08-27-2018 07:55-0500 BP Diastolic 70 mm[Hg] Eun Arrington [facility] Internal Medicine Work Phone: Comment on above: Patient Position: Sitting; Cuff Location : Left Arm; Cuff Size: Standard 08-27-2018 07:55-0500 BP Systolic 124 mm[Hg] Eun Arrington [facility] Internal Medicine Work Phone: Comment on above: Patient Position: Sitting; Cuff Location : Left Arm; Cuff Size: Standard 08-27-2018 07:55-0500 BSA (Body Surface Area) 2.05 m2 Eun Arrington [facility] Internal Medicine Work Phone: 08-27-2018 07:55-0500 Height 167.64 cm Eun Arrington [facility] Internal Medicine Work Phone: 08-27-2018 07:55-0500 Pulse (Heart Rate) 78 /min Eun Arrington [facility] Internal Medicine Work Phone: Comment on above: Pattern: Regular 08-27-2018 07:55-0500 Respiratory Rate 16 /min Eun Arrington [facility] Internal Medicine Work Phone: Comment on above: Pattern: Unlabored 08-27-2018 07:55-0500 Weight 95.71 kg Tawanna Pickard [facility] Internal Medicine Work Phone: 11-27-2012 13:56-0400 BMI (Body Mass Index) 28.41 kg/m2 Kathie Harding [facility] Internal Medicine Work Phone: 11-27-2012 13:56-0400 Body Temperature 97.8 [degF] Kathie Harding [facility] Internal Medicine Work Phone: 11-27-2012 13:56-0400 Body weight 79.83 kg Kathie Harding [facility] Internal Medicine Work Phone: 11-27-2012 13:56-0400 BP Diastolic 74 mm[Hg] Kathie Harding [facility] Internal Medicine Work Phone: Comment on above: Patient Position: Sitting; Cuff Location : Left Arm; Cuff Size: Large 11-27-2012 13:56-0400 BP Systolic 114 mm[Hg] Kathie Harding [facility] Internal Medicine Work Phone: Comment on above: Patient Position: Sitting; Cuff Location : Left Arm; Cuff Size: Large 11-27-2012 13:56-0400 BSA (Body Surface Area) 1.89 m2 Kathie Harding [facility] Internal Medicine Work Phone: 11-27-2012 13:56-0400 Height 167.64 cm Kathie Harding [facility] Internal Medicine Work Phone: 11-27-2012 13:56-0400 Pulse (Heart Rate) 82 /min Kathie Harding [facility] Internal Medicine Work Phone: Comment on above: Pattern: Regular 11-27-2012 13:56-0400 Respiratory Rate 16 /min Kathie Harding [facility] Internal Medicine Work Phone: [...] Type Care Provider Facility Start: 07-09-2025 ambulatory [facility] Facility :[facility] Start: [facility] Start: 05-09-2025 End: 05-09-2025 ambulatory Tawanna Fast Facility:[facility] Start: 05-06-2025 ambulatory Tawanna Fast Facility:[facility] Start: 05-06-2025 End: 05-06-2025 ambulatory Tawanna Fast Facility:[facility] Start: 02-28-2025 End: 02-28-[address] Landen Evangelista MD [facility] Work Phone: Start: 02-28-2025 End: 02-28-[address] Tawanna Pickard DO Work Phone: [facility] Start: 12-06-2024 End: 12-06-2024 Patient encounter procedure Quintin Shay PA-C Work Phone: Orthopaedics Comment on above: Bilateral carpal michell nasir syndrome (Primary Dx) Start: 12-06-2024 End: 12-06-2024 ambulatory QUINTIN SHAY Facility:[facility] Start: 08-30-2024 End: 08-30-2024 ambulatory Tawanna Pickard [place] Start: 10-27-2023 End: 10-27-[address] Tawanna Pickard Work Phone: [facility] Work Phone: Start: 10-27-2023 End: 10-27-[address] Tawanna Pickard Work Phone: [facility] Work Phone: Start: 03-23-2023 End: 03-23-2023 ambulatory JOSLYN DU Facility:[id number] Start: 03-23-2023 End: 03-23-2023 Office outpatient visit 15 minutes Joslyn Du MD Work Phone: [facility] Comment on above: Traumatic brain inju ry, without loss of consciousness, subsequent encounter (Primary Dx); Closed skull fracture with cerebral contusion with routine healing, subsequent encounter Start: 03-11-2023 ambulatory JOSLYN TURCIOS Facilit y:[facility] Start: 03-11-2023 End: 03-11-2023 Subsequent hospital visit by physician Ct [facility] CT SCAN C GREEN Comment on above: Cerebral hemorrhage (HCC) [I61.9] Start: 03-02-2023 End: 03-02-2023 ambulatory JOSLYN DU Facility:[id number] Start: 03-02-2023 End: 03-02-2023 Nursing evaluation of patient and report Joslyn Du MD Work Phone: [facility] [employer] Comment on above: Laceration of scalp, sequela (Primary Dx) Start: 02-24-2023 End: 02-24-2023 Phone Encounter Tawanna Fast DO Work Phone: [facility] Start: 02-21-2023 Telephone encounter Joslyn Du MD Work Phone: [facility] [employer] [facility] Comment on above: Orders Appointment Start: 02-19-2023 End: 02-20-2023 Evaluation and management of inpatient RADHA CAMARILLO Facility:[id number] Start: 02-19-2023 End: 02-19-2023 ambulatory THAD ARREOLARO Facility:[id number] Start: 10-28-2022 Review Tawanna Fast DO Work [...] End: 08-13-2018 Phone Encounter Tawanna Pickard [facility] Start: 09-22-2017 End: 09-22-2017 Phone Encounter Tawanna Pickard [facility] Start: 08-21-2017 Review Tawanna Neeraj [facility] Start: 02-14-2017 End: 02-14-2017 Office outpatient visit 25 minutes Tawanna Pickard [facility] Start: 02-13-2017 End: 02-13-2017 Phone Encounter Tawanna Neeraj [facility] Start: 09-12-2016 End: 09-12-2016 Office outpatient visit 5 minutes Tawanna Pickard [facility] Start: 10-14-2013 End: 10-14-2013 Phone Encounter Tawanna Pickard [facility] Start: 07-31-2013 End: 07-31-2013 Phone Encounter Tawanna Pickard [facility] Start: 11-27-2012 End: 11-27-2012 Patient encounter procedure Tawanna Pickard [facility] Start: 11-26-2012 End: 11-26-2012 Office outpatient visit 15 minutes Tawanna Pickard [facility] Start: 11-20-2012 End: 11-20-2012 Patient encounter procedure Tawanna Pickard [facility] Start: 10-17-2012 End: 10-17-2012 Office outpatient new 60 minutes Tawanna Pickard [facility] Start: 08-02-2012 End: 11-20-2012 Phone Encounter Tawanna Pickard [facility] Start: 07-31-2012 End: 07-31-2012 Patient [...] End: 06-18-2012 Phone Encounter Tawanna Neeraj [facility] Start: 06-18-2012 End: 06-18-2012 Annotation/Addendum Tawanna Neeraj [facility] Start: 06-15-2012 End: 06-15-2012 Lab Order Tawanna Pickard [facility] Start: 05-18-2012 End: 05-18-2012 Annotation/Addendum Tawanna Fast [facility] Start: 05-16-2012 End: 05-16-2012 Lab Order Tawanna Neeraj [facility] Start: 12-27-2011 End: 12-27-2011 Annotation/Addendum Tawanna Fast [facility] Start: 09-13-2011 End: 09-13-2011 Office outpatient visit 25 minutes Tawannarory Pickard [facility] Start: 08-29-2011 End: 08-29-2011 Annotation/Addendum Tawanna Neeraj [facility] Start: 08-29-2011 End: 08-29-2011 Patient encounter procedure Tawanna Neeraj [facility] Start: 08-23-2011 End: 08-23-2011 Refill Request Tawanna Neeraj [facility] Start: 08-15-2011 End: 08-15-2011 Phone Encounter Tawanna Neeraj [facility] Start: 02-02-2011 End: 02-02-2011 Patient encounter procedure Tawanna Pickard [facility] Start: 02-01-2011 End: 02-01-2011 Phone Encounter Tawanna Fast [facility] Start: 12-30-2009 End: 01-06-2010 Historical Summary Tawannarory Pickard [facility] Procedures Date Procedure Procedure Detail Performing Clinician Start: 12-06-2024 Injection therapeutic carpal tunnel Quintin Shay PA-C Work Phone: Start: 12-12-2022 End: 12-12-2022 Endocrinology Visit Report Procedure Note: See Note; NOTES: [facility] [address] [place] [address] [address] [place], [place] [id number] OFFICE VISIT Date of Service: 12/12/22 MR#: [id number] Acct: [id number] Name: FRANCISCO CRENSHAW Rep #: [id number] : 1975 Provider: Sonya Massey Age/Sex: 47/M [place] [facility] [place]: Signed Intake Vital Signs 12/12/22 08:11 Height 5 ft 4 in Weight: 214 lb 4 oz BMI 36.8 BP 140/86 H Blood Pressure Location Lt brachial Position Sitting Respiration 16 Pulse 67 Pulse Source Monitor Temp 97.9 F Temp Source Temporal Pulse Oximetry (%) 96 Oxygen Delivery Method room air Intake Visit Reasons: 6 M FU Chief Complaint: Diabetes Wedding Planner Required: No Is patient in pain?: No Allergies No Known Allergies Allergy (Verified 12/12/22 08:12) Nurse's Note: 3 [facility] Medical History Diabetes mellitus type 1 High [...] position. He states he has switched to [employer] sites due to difficulty getting others to [...] 3 Views Procedure Note: See Note; NOTES: [facility] [address] [place] [address] Wrist min 3 Views MR#: [id number] Acct: [id number] Name: FRANCISCO CRENSHAW Rep #: [id number] : 1975 M 46 From: Alan Bill MD PCP: Dr. Tawanna Pickard, Status: DEP AMB Study: Wrist min 3 Views Date of Exam: 07/13/22 Exam# [id number] Ordering Dr: Tawanna Pickard DO STUDY: X-RAY [...] EST , CC: Dr. Tawanna Pickard DO Agency Director: Signed Tawanna Pickard DO Work Phone: Start: 06-24-2022 End: 07-04-2022 Endocrinology Visit Report Procedure Note: See Note; NOTES: [facility] [address] [facility]. [address] [place] [address] OFFICE VISIT Date of Service: 06/24/22 MR#: [id number] Acct: [id number] Name: FRANCISCO CRENSHAW Rep #: [id number] : 1975 Provider: Sonya Massey Age/Sex: 46/M [place] [facility] [place]: Signed Intake Vital Signs 06/24/22 08:33 Height 5 ft 7 in Weight: 205 lb 4 oz BMI 32.1 BP 138/85 H Blood Pressure Location Rt brachial Position Sitting Respiration 18 Pulse 82 Pulse Source Monitor Temp 97.1 F L Temp Source Temporal Pulse Oximetry (%) 97 Oxygen Delivery Method room air Intake Visit Reasons: 6 M FU Chief Complaint: Diabetes Wedding Planner Required: No Accompanied by: Self Is patient in pain?: No Allergies No Known Allergies Allergy (Verified 06/24/22 08:39) Nurse's Note: Pt had A1C 06/22/22 7.3% [facility] Medical History (Updated 07/04/22 @ 10:20 by [...] Endocrinology Visit Report Comments: See Note; NOTES: [facility] [address] [place] [address]. [address] [place] [address] OFFICE VISIT Date of Service: 11/19/21 MR#: [id number] Acct: [id number] Name: FRANCISCO CRENSHAW Rep #: [id number] : 1975 Provider: Sonya Massey Age/Sex: 46/M [place] [facility] [place] Status: Signed Intake Vital Signs 11/19/21 09:09 Height 5 ft 7 in Weight: 203 lb 6 oz BMI 31.8 BP 140/82 H Blood Pressure Location Rt brachial Position Sitting Respiration 18 Pulse 73 Pulse Source Monitor Temp 96.5 F L Temp Source Temporal Pulse Oximetry (%) 98 Oxygen Delivery Method room air Intake Visit Reasons: 6 M FU Chief Complaint: Diabetes Wedding Planner Required: No Accompanied by: self Is patient in pain?: No Allergies No Known Allergies Allergy (Verified 11/19/21 09:16) [facility] Medical History Diabetes High cholesterol Family History [...] Endocrinology Visit Report Comments: See Note; NOTES: [facility] [address] [place] [address] OFFICE VISIT Date of Service: 05/21/21 MR#: [id number] Acct: [id number] Name: FRANCISCO CRENSHAW Rep #: [id number] : 1975 Provider: Sonya Massey Age/Sex: 45/M [place] [facility] [place]: Signed Intake Vital Signs 05/21/21 09:34 05/21/21 09:42 Height 5 ft 7 in Weight: 200 lb 8 oz BMI 31.4 30.7 BP 118/80 Blood Pressure Location Rt brachial Position Sitting Respiration 16 Pulse 89 Pulse Source Monitor Temp 97.1 F L Temp Source Temporal Pulse Oximetry (%) 97 Oxygen Delivery Method room air Intake Visit Reasons: 6 M FU Chief Complaint: Diabetes Wedding Planner Required: No Accompanied by: self Is patient in pain?: No Allergies No Known Allergies Allergy (Verified 05/21/21 09:41) [facility] Medical History (Updated 03/19/21 @ 13:16 by Ewa Jorgensen MONKEY BREEDER, MONKEY BREEDER-C) Diabetes High cholesterol Family History Other Diabetes [...] nourished Orientation: alert, awake and oriented x3 [facility] Head: normal to inspection Ears: hearing grossly [...] signed by Landen Evangelista MD> Date Landen Eavngelista MD Cosigner Signature: Date (if applicable) CC: Tawanna Pickard DO Work Phone: Start: 03-19-2021 End: 03-19-2021 Virtual Office Visit Comments: See Note; NOTES: [facility] [address] [place] [address]. [place] [address] OFFICE VISIT Date of Service: 03/19/21 MR#: [id number] Acct: [id number] Patient: FRANCISCO CRENSHAW Rep #: [id number] : 1975 Provider: KENDALL mcdaniels Age/Sex: 45/M [place] [facility] Status: Signed Intake Intake Visit Reasons: COVID-19 [...] DAILY #90 tab 01/15/21 [Rx Confirmed 03/19/21] [facility] Medical History (Updated 03/19/21 @ 13:16 by [...] with no video. Quality Reporting Tobacco Screening ([facility] 138) Smoking Status: Never smoker Coding Level of Care Code New Pt Level 2 Telephone Patient Type New History Problem Focused Exam Problem Focused Medical Decision Making Low Complexity Diagnoses COVID-19 U07.1 Type I diabetes mellitus E10.9 BMI 30.0-30.9,adult Z68.30 Time Spent (min) 10 Comment phone visit Assessment and Plan Assessment and Plan (1) COVID-19: Status: Acute Plan - Ewa Jorgensen MONKEY BREEDER, MONKEY BREEDER-C: The patient remains appropriate for the Monoclonal Antibody Infusion. The patient states understanding of this information communicated and wishes to proceed with monoclonal antibody infusion therapy. Patient agrees to receive either balanivimab/etesvimab or casirivimab/imdevimab upon availability. (2) Type I diabetes mellitus: Status: Acute (3) BMI 30.0-30.9,adult: Status: Acute 03/19/21 1316 <Electronically signed by Ewa Jorgensen NP MONKEY BREEDER-C> Date Ewa Jorgensen NP MONKEY BREEDER-C Cosigner Signature: Date (if applicable) CC: Dr. Tawanna Pickard, DO Tawanna Pickard DO Work Phone: Start: 11-19-2020 End: 11-19-2020 Endocrinology Visit Report Comments: See Note; NOTES: [facility] [address] [place] [address]. [address] [place] [address] OFFICE VISIT Date of Service: 11/19/20 MR#: [id number] Acct: [id number] Name: FRANCISCO CRENSHAW Rep #: [id number] : 1975 Provider: Sonya Massey Age/Sex: 45/M [place] [facility] [place]: Signed Intake Vital Signs 11/19/20 11:00 [...] M FU-R/S FROM [facility] Chief Complaint: Diabetes Wedding Planner Required: No Accompanied by: None Is patient in pain?: No Allergies No Known Allergies Allergy (Verified 11/19/20 11:08) [facility] Medical History Diabetes High cholesterol Family History [...] as well as documenting clinical information. 11/19/20 8083 <Electronically signed by Landen Evangelista MD> Date Landen Evangelista MD Cosigner Signature: Date (if applicable) CC: Dr. Tawanna Pickard, DO Tawanna Pickard DO Work Phone: Start: 06-11-2020 End: 06-12-2020 Endocrinology Visit Report Comments: See Note; NOTES: [facility] [address] [place] [address] OFFICE VISIT Date of Service: 06/11/20 MR#: [id number] Acct: [id number] Name: FRANCISCO CRENSHAW Rep #: [id number] : 1975 Provider: Sonya Massey Age/Sex: 44/M [place] [facility] [place]: Signed Intake Vital Signs 06/11/20 Height 5 ft 8 in 06/11/20 Weight: 202 lb 06/11/20 BMI 30.7 06/11/20 BP 124/80 H Intake Visit Reasons: 4 M FU Chief Complaint: Diabetes Allergies No Known Allergies Allergy (Verified 06/11/20 09:20) [facility] Medical History Diabetes (Acute) High cholesterol (Acute) [...] Blood Flow Screening Comments: See Note; NOTES: [facility] [place] [address] 04/22/20 0935 MR#: [id number] Acct: [id number] Name: FRANCISCO CRENSHAW Rep #: [id number] : 1975 44 From: Massimo Costello MD [...] Dictated: 04/22/20 0935 Date Transcribed: 04/23/20 1246 Agency Director: Signed Tawanna Pickard Start: 02-10-2020 End: 02-10-2020 Endocrinology Visit Report Comments: See Note; NOTES: [facility] [address] [place] [address] OFFICE VISIT Date of Service: 02/06/20 MR#: [id number] Acct: [id number] Name: FRANCISCO CRENSHAW Rep #: [id number] : 1975 Provider: Sonya Massey Age/Sex: 44/M [place] [facility] [place] Status: Signed Intake Vital Signs 02/10/20 BMI 32.3 02/06/20 Height 5 ft 8 in 02/06/20 Weight: 205 lb 02/06/20 BMI 31.1 02/06/20 BP 124/78 H Intake Visit Reasons: 4 month f/u Chief Complaint: Diabetes Allergies No Known Allergies Allergy (Verified 08/26/19 09:58) [facility] Social History (Updated 02/10/20 @ 11:29 by [...] Virtual Office Visit Comments: See Note; NOTES: [facility] [address] [place] [address] OFFICE VISIT Date of Service: 10/07/19 MR#: [id number] Acct: [id number] Patient: FRANCISCO CRENSHAW Rep #: [id number] : 1975 Provider: Landen Evangelista MD Age/Sex: 44/M [place] [facility] [place]: Signed Intake Vital Signs10/07/19 BMI 32.3 Intake Visit Reasons: 3 MONTH F/U Chief Complaint: Diabetes Allergies No Known Allergies Allergy (Verified 08/26/19 09:58) [facility] Social History (Updated 10/07/19 @ 13:22 by [...] with no video. Quality Reporting BMI Screening ([facility] 69) Body Mass Index (BMI): 32.3 Tobacco Screening ([facility] 138) Smoking Status: Never smoker Assessment AND [...] Office Visit Report Comments: See Note; NOTES: [facility] [address] [place] [address] OFFICE VISIT Date of Service: 07/08/19 MR#: [id number] Acct: [id number] Patient: FRANCISCO CRENSHAW Rep #: [id number] : 1975 Provider: Landen Evangelista MD Age/Sex: 43/M [place] [facility] [place] Status: Signed Intake Vital Signs07/08/19 Height 5 [...] BMI 32.0-32.9 07/11/19 0840 <Electronically signed by aLnden Evangelista MD> Date Landen Evangelista MD Cosigner Signature: Date (if applicable) CC: Tawanna Hartley Start: 02-13-2017 End: 02-13-2017 Chest PA and Lateral Comments: See Note; NOTES: [facility] Imaging Services [address] [place] [address] Chest PA and Lateral MR#: [id number] Acct: [id number] Name: FRANCISCO CRENSHAW Carol Rep #: [id number] : 1975 M 41 From: Robbie Workman MD PCP: Tawanna Pickard DO Status: REG CLI Study: Chest PA and Lateral Date of Exam: 02/13/17 Exam# [id number] Ordering Dr: Tawanna Pickard DO STUDY: X-RAY [...] Robbie Workman MD at 15:48 EDT Tel [phone], Service support , CC: Tawanna Pickard DO Agency Director: Signed Tawanna Pickard Work Phone: [facility] Marilee Hairston [facility] k [facility]ons[facility] [place] k Tonsil[facility] Kathie [place] [facility] [place] [employer] Tonsillectomy Eun Elzbi[place] k DIRECTOR [employer] Tonsillectomy Eun Elzbieta k DIRECTOR [employer] Tonsillectomy Eun Elzbieta k DIRECTOR [employer] Tonsillectomy Eun Elzbieta k DIRECTOR [employer] Plan of Treatment Date Care Activity Detail Author Start: 02-19-2033 Urine microalbumin profile [facility] Start: 03-16-2025 Hepatitis B Vaccine (3 of 3 - Hep B Twinrix 3-dose series) Hepatitis B Vaccine (3 of 3 - Hep B Twinrix 3-dose series) [facility] Start: 03-12-2025 End: 03-12-2025 Patient encounter procedure 03/12/2025 8:00 AM EDT Office Visit Orthopaedics [address] [place] [address] Quintin Shay PA-C [address] [place] [address] 3 month follow up right wrist Orthopaedics Comment on above: 3 month follow up ri ght wrist Start: 03-10-2025 Influenza vaccination Influenz a Vaccine (Season Ended) [facility] Start: 03-10-2024 Covid-19 Vaccine ( season) Covid-19 Vaccine ( season) [facility] Start: 03-14-2023 End: 03-22-2024 CT BRAIN WO IVCON CT BRAIN WO IVCON Radiology Routine Cerebral hemorrhage (HCC) Expected: 03/14/2023, Expires: 03/22/2024 [facility] Work Phone: Comment on above: Expected: 03/14/2023 , Expires: 03/22/2024 Start: 03-10-2023 Influenza vaccination [facility] Start: 10-28-2022 Procedure Education Eprescribe d prescriptions (G8553) [facility]; [facility] Work Phone: Start: 10-28-2022 Hemoglobin glycosyla iqra a1c HGB A1C (82190) [facility]; [facility] Work Phone: Start: 10-28-2022 Lipid panel LIPID PANEL (90495) [facility]; [facility] Work Phone: Start: 10-28-2022 Blood count complete auto&auto difrntl wbc CBC W/AUTO DIFF WBC (12987) [facility]; [facility] Work Phone: Start: 10-28-2022 Comprehensive metabo lic panel METABOLIC PANEL, COMPREHENSIVE (99064) [facility]; [facility] Work Phone: Start: 2022 COLOGUARD (FIT-DNA) COLOGUARD (FIT-D NA) [facility] Start: 2022 Colonoscopy COLONOSCOPY [facility] Start: 2022 COLORECTAL CANCER SCREENING COLORECTAL CANCER SCREENING [facility] Start: [address] COLONOGRAPHY [facility] Start: 2022 FECAL OCCULT BLOOD FECAL OCCULT BLOO D [facility] Start: 2022 Screening for malign ant neoplasm of colon [facility] Start: 2022 SIGMOIDOSCOPY SIGMOIDOSCOPY [facility] Start: 07-13-2022 Procedure Education Eprescribe d prescriptions (G8553) [facility]; [facility] Work Phone: Start: 07-13-2022 Blood count complete auto&auto difrntl wbc CBC W/AUTO DIFF WBC (78608) [facility]; [facility] Work Phone: Start: 07-13-2022 Comprehensive metabo lic panel METABOLIC PANEL, COMPREHENSIVE (66600) [facility]; [facility] Work Phone: Start: 07-13-2022 Cyanocobalamin vitam in b-12 VITAMIN B12 AND FOLATES (18573) [facility]; [facility] Work Phone: Start: 07-13-2022 Assay of testosteron e free TESTOSTERONE FREE (98442) [facility]; [facility] Work Phone: Start: 07-13-2022 Assay of testosteron e total TESTOSTERONE TOTAL (02097) [facility]; [facility] Work Phone: Start: 07-10-2022 DEPRESSION ASSESSMENT DEPRESSION ASS ESSMENT [facility] Start: 01-14-2022 Procedure Education Eprescribe d prescriptions (G8553) [facility]; [facility] Work Phone: Start: 01-14-2022 25 hydroxy includes fractions if performed Vitamin D Hydroxy (94895) [facility]; [facility] Work Phone: Start: 01-14-2022 Lipid panel LIPID PANEL (37037) [facility]; [facility] Work Phone: Start: 01-14-2022 Blood count complete auto&auto difrntl wbc CBC with auto diff (28887) [facility]; [facility] Work Phone: Start: 01-14-2022 Comprehensive metabo lic panel METABOLIC PANEL, COMPREHENSIVE (43838) [facility]; [facility] Work Phone: Start: 01-14-2022 Hemoglobin glycosyla iqra a1c HGB A1C (70929) [facility]; [facility] Work Phone: Start: 01-14-2022 C-reactive protein h igh sensitivity C-REACT PROT HIGH SENS(hsCRP) (18937) [facility]; [facility] Work Phone: Start: 09-10-2021 Procedure Education Eprescribe d prescriptions (G8553) [facility]; [facility] Work Phone: Start: 09-10-2021 25 hydroxy includes fractions if performed Vitamin D Hydroxy (11116) [facility]; [facility] Work Phone: Start: 09-10-2021 Lipid panel LIPID PANEL (98888) [facility]; [facility] Work Phone: Start: 09-10-2021 Urine albumin quantitative MICROALBUMIN: CREATININE RATIO (44717) AND (86338) [facility]; [facility] Work Phone: Start: 09-10-2021 Blood count complete auto&auto difrntl wbc CBC with auto diff (98875) [facility]; [facility] Work Phone: Start: 09-10-2021 Comprehensive metabo lic panel METABOLIC PANEL, COMPREHENSIVE (19935) [facility]; [facility] Work Phone: Start: 09-10-2021 Hemoglobin glycosyla iqra a1c HGB A1C (69778) [facility]; [facility] Work Phone: Start: 07-23-2021 COVID-19 VACCINE (3 - Pfizer series) COVID-19 VACCINE (3 - Pfizer series) [facility] Start: 05-17-2021 Procedure Education Eprescribe d prescriptions (G8553) [facility]; [facility] Work Phone: Start: 05-17-2021 Comprehensive metabo lic panel METABOLIC PANEL, COMPREHENSIVE (23782) [facility]; [facility] Work Phone: Start: 05-17-2021 Hemoglobin glycosyla iqra a1c HGB A1C (89046) [facility]; [facility] Work Phone: Start: 05-17-2021 C-reactive protein h igh sensitivity C-REACT PROT HIGH SENS(hsCRP) (76877) [facility]; [facility] Work Phone: Start: 05-17-2021 25 hydroxy includes fractions if performed Vitamin D Hydroxy (46185) [facility]; [facility] Work Phone: Start: 05-17-2021 Lipid panel LIPID PANEL (20462) [facility]; [facility] Work Phone: Start: 03-18-2021 Iaadiadoo influenza 2019 Novel Coronavirus (COVID-19), EDNA (78300) [facility]; [facility] Work Phone: Start: 11-18-2020 Procedure Education Eprescribe d prescriptions (G8553) [facility]; [facility] Work Phone: Start: 11-18-2020 C-reactive protein h igh sensitivity C-REACT PROT HIGH SENS(hsCRP) (15655) [facility]; [facility] Work Phone: Start: 11-18-2020 25 hydroxy includes fractions if performed Vitamin D Hydroxy (51278) [facility]; [facility] Work Phone: Start: 11-18-2020 Lipid panel LIPID PANEL (12727) [facility]; [facility] Work Phone: Start: 11-18-2020 Blood count complete auto&auto difrntl wbc CBC with auto diff (44571) [facility]; [facility] Work Phone: Start: 11-18-2020 Comprehensive metabo lic panel METABOLIC PANEL, COMPREHENSIVE (90515) [facility]; [facility] Work Phone: Start: 11-18-2020 Hemoglobin glycosyla iqra a1c HGB A1C (90006) [facility]; [facility] Work Phone: Start: 08-04-2020 Skin test tuberculos is intradermal PPD (31684) [facility]; [facility] Work Phone: Comment on above: lot: [id number]: 03/01 site/route: L forearm/transdermalamt: 0.1mLVIS signed when applicableIRISH Haq Start: 07-15-2020 Procedure Education Eprescribe d prescriptions (G8553) [facility]; [facility] Work Phone: Start: 07-15-2020 25 hydroxy includes fractions if performed Vitamin D Hydroxy (63954) [facility]; [facility] Work Phone: Start: 07-15-2020 C-reactive protein h igh sensitivity C-REACT PROT HIGH SENS(hsCRP) (34300) [facility]; [facility] Work Phone: Start: 07-15-2020 Comprehensive metabo lic panel METABOLIC PANEL, COMPREHENSIVE (45358) [facility]; [facility] Work Phone: Start: 07-15-2020 Blood count complete auto&auto difrntl wbc CBC with auto diff (36801) [facility]; [facility] Work Phone: Start: 07-15-2020 Lipid panel LIPID PANEL (98336) [facility]; [facility] Work Phone: Start: 04-07-2020 Procedure Education Eprescribe d prescriptions (G8553) [facility] Work Phone: Start: 04-07-2020 C-reactive protein h igh sensitivity C-REACT PROT HIGH SENS(hsCRP) (06022) [facility] Work Phone: Start: 04-07-2020 Comprehensive metabo lic panel METABOLIC PANEL, COMPREHENSIVE (66217) [facility] Work Phone: Start: 04-07-2020 Lipid panel LIPID PANEL (49147) [facility] Work Phone: Start: 04-07-2020 25 hydroxy includes fractions if performed Vitamin D Hydroxy (05335) [facility] Work Phone: Start: 12-09-2019 Procedure Education Eprescribe d prescriptions (G8553) [facility] Work Phone: Start: 08-14-2019 Hepatic function panel HEPATIC FUNCTION PANEL (17642) [facility] Work Phone: Start: 05-13-2019 Procedure Education Eprescribe d prescriptions (G8553) [facility] Work Phone: Start: 05-13-2019 Urine albumin quantitative MICROALBUMIN: CREATININE RATIO (46419) AND (42908) [facility] Work Phone: Start: 05-13-2019 Comprehensive metabo lic panel METABOLIC PANEL, COMPREHENSIVE (59010) [facility] Work Phone: Start: 05-13-2019 25 hydroxy includes fractions if performed Vitamin D Hydroxy (60301) [facility] Work Phone: Start: 05-13-2019 Lipid panel LIPID PANEL (98176) [facility] Work Phone: Start: 12-07-2018 Procedure Education Eprescribe d prescriptions (G8553) [facility] Work Phone: Start: 12-07-2018 Lipid panel LIPID PANEL (52253) [facility] Work Phone: Start: 12-07-2018 Blood count complete auto&auto difrntl wbc CBC W/AUTO DIFF WBC (95482) [facility] Work Phone: Start: 12-07-2018 Comprehensive metabo lic panel METABOLIC PANEL, COMPREHENSIVE (66546) [facility] Work Phone: Start: 11-07-2018 C-reactive protein h igh sensitivity C-REACT PROT HIGH SENS(hsCRP) (02572) [facility] Work Phone: Start: 11-07-2018 Protein mass conc C-REACT PROT HIGH SENS(hsCRP) (52270) [facility] Work Phone: Start: 11-07-2018 25 hydroxy includes fractions if performed Vitamin D Hydroxy (59769) [facility] Work Phone: Start: 11-07-2018 Comprehensive metabo lic panel METABOLIC PANEL, COMPREHENSIVE (72293) [facility] Work Phone: Start: 11-07-2018 Lipid panel LIPID PANEL (94117) [facility] Work Phone: Start: 09-06-2018 25 hydroxy includes fractions if performed Vitamin D Hydroxy (53446) [facility] Work Phone: Start: 09-06-2018 C-reactive protein h igh sensitivity C-REACT PROT HIGH SENS(hsCRP) (58455) [facility] Work Phone: Start: 09-06-2018 Protein mass conc C-REACT PROT HIGH SENS(hsCRP) (40780) [facility] Work Phone: Start: 09-06-2018 Blood count complete auto&auto difrntl wbc CBC W/AUTO DIFF WBC (96906) [facility] Work Phone: Start: 09-06-2018 Comprehensive metabo lic panel METABOLIC PANEL, COMPREHENSIVE (24765) [facility] Work Phone: Start: 08-27-2018 Procedure Education Eprescribe d prescriptions (G8553) [facility] Work Phone: Start: 08-13-2018 Comprehensive metabo lic panel METABOLIC PANEL, COMPREHENSIVE (33737) [facility] Work Phone: Start: 08-13-2018 Hepatic function panel HEPATIC FUNCTION PANEL (90066) [facility] Work Phone: Start: 08-13-2018 25 hydroxy includes fractions if performed CALCIFEDIOL (00111) [facility] Work Phone: Start: 08-13-2018 Lipid panel LIPID PANEL (89738) [facility] Work Phone: Start: 11-27-2012 Comprehensive metabo lic panel METABOLIC PANEL, COMPREHENSIVE (84167) [facility] Work Phone: Start: 11-27-2012 25 hydroxy includes fractions if performed Vitamin D Hydroxy (66630) [facility] Work Phone: Start: 11-27-2012 Hepatic function panel HEPATIC FUNCTION PANEL (88244) [facility] Work Phone: Start: 11-27-2012 Lipid panel LIPID PANEL (68380) [facility] Work Phone: Start: 11-27-2012 Provider Instruction s for Treatment [facility] Work Phone: Start: 11-27-2012 Hemoglobin A1c/Hemoglobin.total mass fraction (Bld) HgA1C , Office (08459) [facility] Work Phone: Start: 11-27-2012 Hemoglobin glycosyla iqra a1c HgA1C , Office (50512) [facility]; [facility] Work Phone: Start: 10-17-2012 Provider Instruction s for Treatment Follow up in 3 months [facility] Work Phone: Start: 07-19-2012 Comprehensive metabo lic panel Metabolic Panel, Comprehensive (53728) [facility] Work Phone: Comment on above: stat Start: 07-18-2012 Assay of osmolality blood OSMOLALITY BLOOD (65936) [facility] Work Phone: Start: 07-18-2012 Blood count manual c ell count each CBC with manual diff (98760) [facility] Work Phone: Start: 07-18-2012 Comprehensive metabo lic panel Metabolic Panel, Comprehensive (41526) [facility] Work Phone: Start: 06-18-2012 Lipid panel Lipid Panel (15273) [facility] Work Phone: Start: 05-16-2012 Hepatitis a antibody haab HEPATITIS A ANTBDY-IGG/IGM (68361) [facility] Work Phone: Start: 05-16-2012 Antibody varicella-zoster V-ZOSTER IgG (IMMUNITY) 67915 (74192) [facility] Work Phone: Start: 05-16-2012 Hepatitis b surf antibody hbsab HEPATITIS B SURFACE ANTIBODY (94149) [facility] Work Phone: Start: 05-16-2012 Antibody rubeola RUBEOLA ANTIB ADÁN (87111) [facility] Work Phone: Start: 05-16-2012 Antibody rubella RUBELLA ANTIB ADÁN (06602) [facility] Work Phone: Start: 05-16-2012 Antibody mumps MUMPS ANTIBODY (29149 ) [facility] Work Phone: Start: 05-16-2012 Skin test tuberculos is intradermal SKIN TEST INTRADERMAL TB (17772) [facility] Work Phone: Comment on above: 0.1 given lt forearm lot [id number] exp 09/20 Start: 12-27-2011 Hepatitis antibody h aab igm antibody HEPATITIS A ANTIBDY-IGM (54727) [facility] Work Phone: Start: 12-27-2011 Hepatitis a antibody haab HEPATITIS A ANTBDY-IGG/IGM (26987) [facility] Work Phone: Start: 12-27-2011 Antibody varicella-zoster VARICELLA-ZOSTER ANTBODY (80707) [facility] Work Phone: Start: 12-27-2011 Hepatitis b surf antibody hbsab HEPATITIS B SURFACE ANTIBODY (50986) [facility] Work Phone: Start: 12-27-2011 Antibody rubeola RUBEOLA ANTIB ADÁN (91361) [facility] Work Phone: Start: 12-27-2011 Antibody rubella RUBELLA ANTIB ADÁN (65794) [facility] Work Phone: Start: 12-27-2011 Antibody mumps MUMPS ANTIBODY (50721 ) [facility] Work Phone: Start: 12-14-2011 Lipid panel Lipid Panel (36047) [facility] Work Phone: Start: 12-14-2011 Hepatic function panel HEPATIC FUNCTION PANEL (48038) [facility] Work Phone: Start: 12-14-2011 25 hydroxy includes fractions if performed CALCIFEDIOL (12255) [facility] Work Phone: Start: 09-13-2011 Provider Instruction s for Treatment Follow up in 3 months [facility] Work Phone: Start: 08-29-2011 25 hydroxy includes fractions if performed CALCIFEDIOL (56262) [facility] Work Phone: Start: 08-23-2011 Hepatic function panel HEPATIC FUNCTION PANEL (24360) [facility] Work Phone: Start: 08-23-2011 Lipid panel LIPID PANEL (07483) [facility] Work Phone: Start: 1996 Pneumococcal vaccination Pneum ococcal Vaccine (1 of 2 - PCV) [facility] Start: 1995 ANNUAL PCP TEAM SUPPRESSION CREW LEADER BETHANIE DISEASE VISIT ANNUAL PCP TEAM CHRONIC DISEASE VISIT [facility] Start: 1995 Anxiety Screening Anxiety Screening [facility] Start: 1995 Depression Screening Depression Scre ening [facility] Start: 1995 Hepatitis B surface antibody level LDL CHOLESTEROL [facility] Start: 1995 HEPATITIS C SCREENING HEPATITIS C [facility] Start: 1995 Hepatitis C screening Hepatitis C [facility] Start: 1995 HIV SCREENING HIV SCREENING [facility] Start: 1995 HIV screening HIV Screening [facility] Start: 1987 3 comp foot exam completed DIABETIC FOOT EXAM [facility] Start: 1987 Diabetic foot examination Diabetic Foot Exam [facility] Start: 1987 Glaucoma screening Dilated Retinal E xam [facility] Start: 1987 Hepatitis B screening URINE ALBUMIN:CREATININE RATIO [facility] Start: 1987 Hepatitis C antibody , confirmatory test DILATED RETINAL EXAM [facility] Start: 1983 PNEUMOCOCCAL (1 - PCV) PNEUMOCOCCAL (1 - PCV) [facility] Start: 1983 Pneumococcal vaccination Pneum ococcal Vaccine (1 - PCV) [facility] Start: 1982 Hemoglobin A1c measurement HbA1C [facility] Start: 1982 Hemoglobin A1c/Hemoglobin.total in Blood HBA1C [facility] Start: 1977 HEPATITIS B (1 of 3 - 3-dose series) HEPATITIS B (1 of 3 - 3-dose series) [facility] Start: 1977 Hepatitis B Vaccine (1 of 3 - 3-dose series) Hepatitis B Vaccine (1 of 3 - 3-dose series) [facility] CT BRAIN WO IVCON CT BRAIN WO IV CON Radiology Routine Cerebral hemorrhage (HCC) 03/11/2023 8:34 AM EDT [facility] Work Phone: [facility] [...] nternal Medicine; [facility] Work Phone: [facility] Immunizations Immunization Date Immunization Notes Care Provider Fa [facility] 02-19-2023 tetanus toxoid, reduced diphtheria toxoid, and acellular pertussis vaccine, adsorbed Joslyn Turcios MD Work Phone: [facility] 03-10-2021 COVID-Pfizer (10 MCG/0.2 ML) Tawanna Fast DO Work Phone: [facility]; [facility] Work Phone: 03-23-2020 influenza virus vaccine, unspecified formulation Joslyn Turcios MD Work Phone: [facility] Payers Date Payer Category Payer Self-pay [id number] 2014 [employer] Blue [facility] BLUE CARD PPO OOS [id number] 2014 Unknown 2014 Unknown [id number] 2014 Unknown [id number] 1977 Unknown [id number] Unknown [id number] Unknown [id number] Unknown [id number] Unknown [id number] Unknown [id number] Unknown [id number] Unknown [id number] Social History Date Type Detail Facility Alcohol Use: Never smoker [facility] Work Phone: Start: 02-19-2023 End: 02-20-2023 Caffeine Use [facility] Work Phone: Tobacco use: Never smoker. [facility] Work Phone: Alcohol Use: Alcohol Use: [facility] Work Phone: Tobacco use: Tobacco use: [facility] Work Phone: Start: 02-19-2023 End: 04-21-2023 Tobacco smoking status NHIS Never smoked tobacco [facility] Start: 02-19-2023 Tobacco use and exposure Smokeless tobacco non-user [facility] Start: 02-19-2023 End: 03-23-2023 Alcohol intake Current drinker of alcohol (finding) [facility] Start: 02-19-2023 End: 02-20-2023 Tobacco use panel [facility] Adult Depression Screening Assessment 0 [facility] Start: 02-19-2023 Alcohol Comment Occasionally [facility] Start: 1977 Sex Assigned At Not on file [facility] Start: 04-21-2023 Tobacco smoking status NHIS Unknown if ever smoked [facility] Start: 1977 Sex Assigned At Male [facility] Medical Equipment Procedure Code Equipment [...] 3:00 PM EDT Alyce Castelan RN No [facility] 02-20-2023 Are you blind, or do you have serious difficulty seeing, even when wearing glasses No 02/20/2023 3:00 PM EDT Alyce Castelan RN No [facility] 02-20-2023 Do you have serious difficulty walking or climbing stairs No 02/20/2023 3:00 PM EDT Alyce Castelan RN No [facility] 02-20-2023 Do you have difficul ty dressing or bathing No 02/20/2023 3:00 PM EDT Alyce Castelan RN No [facility] 02-20-2023 Because of a physica l, mental, or emotional condition, do you have difficulty doing errands alone such as visiting a physician's office or shopping No 02/20/2023 3:00 PM EDT Alyce Castelan RN No [facility] Mental Status Date Assessment Result Facility 02-20-2023 Because of a physica l, mental, or emotional condition, do you have serious difficulty concentrating, remembering, or making decisions No 02/20/2023 3:00 PM EDT Alyce Castelan RN No [facility] Clinical Notes 02-20-2023 to 12-06-2024 Quintin Shay PA-C - 12/06/2024 9:47 AM Marilee Kearns MA - 03/23/2023 8:57 AM Joslyn White MD - 03/23/2023 8:45 AM Marilee Kearns MA - 03/02/2023 11:13 AM EDT Note Date & Type Note Facility 12-06-2024 Note HNO ID: [id number] Author: QUINTIN SHAY PA-C Service: ? Author Type: Physician Order Detailer Type: Progress Notes Filed: 12/06/2024 09:53 Note [...] these instructions. Informed Consent Consent Obtained: Verbal Elsie Protocol A moment to CARE was completed. [...] Shay PA-C December 06, 2024 9:47 AM [facility] 12-06-2024 History of Presen t illness [...] these instructions. Informed Consent Consent Obtained: Verbal Elsie Protocol A moment to CARE was completed. [...] 2024 9:47 AM documented in this encounter [facility] 03-23-2023 Note HNO ID: [id number] Author: Joslyn Turcios MD Service: ? Author Type: Physician Type: Progress Notes Filed: 03/23/2023 9:14 AM Note Text: [facility] Established Patient Consultation No referring provider defined for this encounter. CC: Traumatic brain injury Subjective History of Present Illness: Mr. Crenshaw is a pleasant 47yo gentleman with a history of a ground-level fall hitting his head in a rock. He denies any LOC. He was seen at [facility] ED on 02/19/2023 where a head [...] of smell, but both symptoms are improving. [place] were removed 2 weeks ago. Therapy Status [...] - 32 mmol/ (more content not included)... [facility] 03-23-2023 Nurse Note 47 y/o male presents to office for a cranial hemorrhage follow up. Reports experiencing vertigo symptoms, but these are resolving. Denies headaches or blurred vision. documented in this encounter [facility] 03-23-2023 History of Presen t illness Narrative Images from the original note were not included. [facility] Established Patient Consultation No referring provider defined for this encounter. CC: Traumatic brain injury Subjective History of Present Illness: Mr. Crenshaw is a pleasant 47yo gentleman with a history of a ground-level fall hitting his head in a rock. He denies any LOC. He was seen at [facility] ED on 02/19/2023 where a head [...] DATE OF EXAM: Mar 11 2023 8:34AM [facility] 0504 - CT BRAIN WO IVCON [...] No CT evidence of acute intracranial abnormalities. Agency Director: [facility] Transcribe Date/Time: Mar 14 2023 8:00A Dictated by : KEELEY QUEZADA MD This examination was interpreted and the report reviewed and electronically signed by: KEELEY QUEZADA MD on Mar 14 2023 8:08AM EST Data Review: Personal review of medical records: I reviewed the [facility] chart. Personal review of image, tracing [...] No Change Instructions: Continue present activity Physician [id number] time was 20 minutes with > 50% [...] Straightforward Joslyn Du MD 8:33 AM 03/23/2023 [facility] documented in this encounter [facility] 03-02-2023 Nurse Note 47 y/o male presents to office for staple removal. 7 aakash noted and all removed. Pt tolerated well. No additional concerns. Will have CT completed 03/14 and will RTO for new pt apt with Dr Turcios on 03/21 as scheduled. documented in this encounter [facility] 02-21-2023 Miscellaneous Notes I called Francisco today [...] Office number provided. documented in this encounter [facility] 02-20-2023 Note HNO ID: [id number] Author: Maki Tucker RN Service: Care Management [...] 20, 2023 TIME: 2:27 PM CONTACT #: [phone] [facility] 02-20-2023 Note HNO ID: [id number] Author: Bel Sanz MD Service: Pulmonary Disease [...] stays in I (more content not included)... [facility] 02-20-2023 Note HNO ID: [id number] Author: Jv Lucas APRN.COMPUTER ANIMATOR Service: Trauma Author Type: Nurse Practitioner Type: Progress Notes Filed: 02/20/2023 9:56 AM Note Text: Attestation signed by Gildardo Horton MD at 02/20/2023 1:51 PM Patient seen with trauma team today. Agree with above MONKEY BREEDER documentation. Patient to ambulate, and may DC [...] 20, 2023 TIME: 8:35 AM Pager: See Pattern Grader Supervisor Schedule [facility] Evaluation note Diagnosis Cerebral hemorrhage (HCC)- Primary Intracerebral hemorrhage documented in this encounter [facility] note* Diagnosis Laceration of scalp, sequela- Primary documented in this encounter [facility] note* Diagnosis Cerebral hemorrhage (HCC) Intracerebral hemorrhage documented in this encounter [facility] note* Diagnosis Traumatic brain injury, without loss of consciousness, subsequent encounter- Primary Closed skull fracture with cerebral contusion with routine healing, subsequent encounter documented in this encounter [facility] note* Diagnosis Onset Date Resolution Status Diabetes mellitus type 1 chr onic Mixed hyperlipidemia chronic Obesity chronic Presence of insulin pump chr onic [facility] Work Phone: Evaluation note* Diagnosis Bilateral carpal tunnel syndrome- Primary Carpal tunnel syndrome documented in this encounter [facility] noteNo assessment [facility]: Instructions* Name Dates Details Patient Instructions Indication:Type 1 diabetes mellitus maturity onset Start:18-Nov-2020 Instruction Type:Provider Instructions for Treatment How to Access Health Informa tion Online using Patient Portal and [email or web address] Apps Indication:Type 1 diabetes mellitus maturity onset Start:18-Nov-2020 Instruction Type:Patient Education Patient Instructions Indication:Mixed hyperlipidemia Start:15-Jul-2020 Instruction Type:Provider Instructions for Treatment How to Access Health Informa tion Online using Patient Portal and [email or web address] Apps Indication:Mixed hyperlipidemia Start:15-Jul-2020 Instruction Type:Patient Education [...] tion Online using Patient Portal and [employer] Apps Indication:[facility] Start:17-May-2021 Instruction Type:Patient Education Patient Instructions Indication:Type 1 diabetes mellitus maturity onset Start:18-Nov-2020 Instruction Type:Provider Instructions for Treatment How to Access Health Informa tion Online using Patient Portal and [employer] Apps Indication:Type 1 diabetes mellitus maturity onset Start:18-Nov-2020 Instruction Type:Patient Education Patient Instructions Indication:Mixed hyperlipidemia Start:15-Jul-2020 Instruction Type:Provider Instructions for Treatment How to Access Health Informa tion Online using Patient Portal and [employer] Apps Indication:Mixed hyperlipidemia Start:15-Jul-2020 Instruction Type:Patient Education [...] tion Online using Patient Portal and [employer] Apps Indication:[facility] Start:17-May-2021 Instruction Type:Patient Education Patient Instructions Indication:Type 1 diabetes mellitus maturity onset Start:18-Nov-2020 Instruction Type:Provider Instructions for Treatment How to Access Health Informa tion Online using Patient Portal and [employer] Apps Indication:Type 1 diabetes mellitus maturity onset Start:18-Nov-2020 Instruction Type:Patient Education Patient Instructions Indication:Mixed hyperlipidemia Start:15-Jul-2020 Instruction Type:Provider Instructions for Treatment How to Access Health Informa tion Online using Patient Portal and [employer] Apps Indication:Mixed hyperlipidemia Start:15-Jul-2020 Instruction Type:Patient Education [...] tion Online using Patient Portal and [employer] Apps Indication:Type 1 diabetes mellitus maturity onset Start:10-Sep-2021 Instruction Type:Patient Education Patient Instructions Indication:[facility] Start:17-May-2021 Instruction Type:Provider Instructions for Treatment How to Access Health Informa tion Online using Patient Portal and [employer] Apps Indication:[facility] Start:17-May-2021 Instruction Type:Patient Education Patient Instructions Indication:Type 1 diabetes mellitus maturity onset Start:18-Nov-2020 Instruction Type:Provider Instructions for Treatment How to Access Health Informa tion Online using Patient Portal and [employer] Apps Indication:Type 1 diabetes mellitus maturity onset Start:18-Nov-2020 Instruction Type:Patient Education Patient Instructions Indication:Mixed hyperlipidemia Start:15-Jul-2020 Instruction Type:Provider Instructions for Treatment How to Access Health Informa tion Online using Patient Portal and [employer] Apps Indication:Mixed hyperlipidemia Start:15-Jul-2020 Instruction Type:Patient Education [...] tion Online using Patient Portal and [employer] Apps Indication:Type 1 diabetes mellitus maturity onset Start:10-Sep-2021 Instruction Type:Patient Education Patient Instructions Indication:[facility] Start:17-May-2021 Instruction Type:Provider Instructions for Treatment How to Access Health Informa tion Online using Patient Portal and [employer] Apps Indication:[facility] Start:17-May-2021 Instruction Type:Patient Education Patient Instructions Indication:Type 1 diabetes mellitus maturity onset Start:18-Nov-2020 Instruction Type:Provider Instructions for Treatment How to Access Health Informa tion Online using Patient Portal and [employer] Apps Indication:Type 1 diabetes mellitus maturity onset Start:18-Nov-2020 Instruction Type:Patient Education Patient Instructions Indication:Mixed hyperlipidemia Start:15-Jul-2020 Instruction Type:Provider Instructions for Treatment How to Access Health Informa tion Online using Patient Portal and [employer] Apps Indication:Mixed hyperlipidemia Start:15-Jul-2020 Instruction Type:Patient Education [...] tion Online using Patient Portal and [employer] Apps Indication:BMI 33.0-33.9,adult Start:14-Jan-2022 Instruction Type:Patient Education Patient Instructions Indication:Type 1 diabetes mellitus maturity onset Start:10-Sep-2021 Instruction Type:Provider Instructions for Treatment How to Access Health Informa tion Online using Patient Portal and [employer] Apps Indication:Type 1 diabetes mellitus maturity onset Start:10-Sep-2021 Instruction Type:Patient Education Patient Instructions Indication:[facility] Start:17-May-2021 Instruction Type:Provider Instructions for Treatment How to Access Health Informa tion Online using Patient Portal and [employer] Apps Indication:[facility] Start:17-May-2021 Instruction Type:Patient Education Patient Instructions Indication:Type 1 diabetes mellitus maturity onset Start:18-Nov-2020 Instruction Type:Provider Instructions for Treatment How to Access Health Informa tion Online using Patient Portal and [employer] Apps Indication:Type 1 diabetes mellitus maturity onset Start:18-Nov-2020 Instruction Type:Patient Education Patient Instructions Indication:Mixed hyperlipidemia Start:15-Jul-2020 Instruction Type:Provider Instructions for Treatment How to Access Health Informa tion Online using Patient Portal and [employer] Apps Indication:Mixed hyperlipidemia Start:15-Jul-2020 Instruction Type:Patient Education [...] tion Online using Patient Portal and [employer] Apps Indication:BMI 33.0-33.9,adult Start:14-Jan-2022 Instruction Type:Patient Education Patient Instructions Indication:Type 1 diabetes mellitus maturity onset Start:10-Sep-2021 Instruction Type:Provider Instructions for Treatment How to Access Health Informa tion Online using Patient Portal and [employer] Apps Indication:Type 1 diabetes mellitus maturity onset Start:10-Sep-2021 Instruction Type:Patient Education Patient Instructions Indication:[facility] Start:17-May-2021 Instruction Type:Provider Instructions for Treatment How to Access Health Informa tion Online using Patient Portal and [employer] Apps Indication:[facility] Start:17-May-2021 Instruction Type:Patient Education Patient Instructions Indication:Type 1 diabetes mellitus maturity onset Start:18-Nov-2020 Instruction Type:Provider Instructions for Treatment How to Access Health Informa tion Online using Patient Portal and [employer] Apps Indication:Type 1 diabetes mellitus maturity onset Start:18-Nov-2020 Instruction Type:Patient Education Patient Instructions Indication:Mixed hyperlipidemia Start:15-Jul-2020 Instruction Type:Provider Instructions for Treatment How to Access Health Informa tion Online using Patient Portal and [employer] Apps Indication:Mixed hyperlipidemia Start:15-Jul-2020 Instruction Type:Patient Education [...] tion Online using Patient Portal and [employer] Apps Indication:Type 1 diabetes mellitus maturity onset Start:13-Jul-2022 Instruction Type:Patient Education Patient Instructions Indication:BMI 33.0-33.9,adult Start:14-Jan-2022 Instruction Type:Provider Instructions for Treatment How to Access Health Informa tion Online using Patient Portal and [employer] Apps Indication:BMI 33.0-33.9,adult Start:14-Jan-2022 Instruction Type:Patient Education Patient Instructions Indication:Type 1 diabetes mellitus maturity onset Start:10-Sep-2021 Instruction Type:Provider Instructions for Treatment How to Access Health Informa tion Online using Patient Portal and [employer] Apps Indication:Type 1 diabetes mellitus maturity onset Start:10-Sep-2021 Instruction Type:Patient Education Patient Instructions Indication:[facility] Start:17-May-2021 Instruction Type:Provider Instructions for Treatment How to Access Health Informa tion Online using Patient Portal and [employer] Apps Indication:[facility] Start:17-May-2021 Instruction Type:Patient Education Patient Instructions Indication:Type 1 diabetes mellitus maturity onset Start:18-Nov-2020 Instruction Type:Provider Instructions for Treatment How to Access Health Informa tion Online using Patient Portal and [employer] Apps Indication:Type 1 diabetes mellitus maturity onset Start:18-Nov-2020 Instruction Type:Patient Education Patient Instructions Indication:Mixed hyperlipidemia Start:15-Jul-2020 Instruction Type:Provider Instructions for Treatment How to Access Health Informa tion Online using Patient Portal and [employer] Apps Indication:Mixed hyperlipidemia Start:15-Jul-2020 Instruction Type:Patient Education [...] tion Online using Patient Portal and [employer] Apps Indication:Type 1 diabetes mellitus maturity onset Start:13-Jul-2022 Instruction Type:Patient Education Patient Instructions Indication:BMI 33.0-33.9,adult Start:14-Jan-2022 Instruction Type:Provider Instructions for Treatment How to Access Health Informa tion Online using Patient Portal and [employer] Apps Indication:BMI 33.0-33.9,adult Start:14-Jan-2022 Instruction Type:Patient Education Patient Instructions Indication:Type 1 diabetes mellitus maturity onset Start:10-Sep-2021 Instruction Type:Provider Instructions for Treatment How to Access Health Informa tion Online using Patient Portal and [employer] Apps Indication:Type 1 diabetes mellitus maturity onset Start:10-Sep-2021 Instruction Type:Patient Education Patient Instructions Indication:[facility] Start:17-May-2021 Instruction Type:Provider Instructions for Treatment How to Access Health Informa tion Online using Patient Portal and [employer] Apps Indication:[facility] Start:17-May-2021 Instruction Type:Patient Education Patient Instructions Indication:Type 1 diabetes mellitus maturity onset Start:18-Nov-2020 Instruction Type:Provider Instructions for Treatment How to Access Health Informa tion Online using Patient Portal and [employer] Apps Indication:Type 1 diabetes mellitus maturity onset Start:18-Nov-2020 Instruction Type:Patient Education Patient Instructions Indication:Mixed hyperlipidemia Start:15-Jul-2020 Instruction Type:Provider Instructions for Treatment How to Access Health Informa tion Online using Patient Portal and [employer] Apps Indication:Mixed hyperlipidemia Start:15-Jul-2020 Instruction Type:Patient Education [...] tion Online using Patient Portal and [employer] Apps Indication:Type 1 diabetes mellitus maturity onset Start:13-Jul-2022 Instruction Type:Patient Education Patient Instructions Indication:BMI 33.0-33.9,adult Start:14-Jan-2022 Instruction Type:Provider Instructions for Treatment How to Access Health Informa tion Online using Patient Portal and [employer] Apps Indication:BMI 33.0-33.9,adult Start:14-Jan-2022 Instruction Type:Patient Education Patient Instructions Indication:Type 1 diabetes mellitus maturity onset Start:10-Sep-2021 Instruction Type:Provider Instructions for Treatment How to Access Health Informa tion Online using Patient Portal and [employer] Apps Indication:Type 1 diabetes mellitus maturity onset Start:10-Sep-2021 Instruction Type:Patient Education Patient Instructions Indication:[facility] Start:17-May-2021 Instruction Type:Provider Instructions for Treatment How to Access Health Informa tion Online using Patient Portal and [employer] Apps Indication:[facility] Start:17-May-2021 Instruction Type:Patient Education Patient Instructions Indication:Type 1 diabetes mellitus maturity onset Start:18-Nov-2020 Instruction Type:Provider Instructions for Treatment How to Access Health Informa tion Online using Patient Portal and [employer] Apps Indication:Type 1 diabetes mellitus maturity onset Start:18-Nov-2020 Instruction Type:Patient Education Patient Instructions Indication:Mixed hyperlipidemia Start:15-Jul-2020 Instruction Type:Provider Instructions for Treatment How to Access Health Informa tion Online using Patient Portal and [employer] Apps Indication:Mixed hyperlipidemia Start:15-Jul-2020 Instruction Type:Patient Education [...] tion Online using Patient Portal and [employer] Apps Indication:Type 1 diabetes mellitus maturity onset Start:13-Jul-2022 Instruction Type:Patient Education Patient Instructions Indication:BMI 33.0-33.9,adult Start:14-Jan-2022 Instruction Type:Provider Instructions for Treatment How to Access Health Informa tion Online using Patient Portal and [employer] Apps Indication:BMI 33.0-33.9,adult Start:14-Jan-2022 Instruction Type:Patient Education Patient Instructions Indication:Type 1 diabetes mellitus maturity onset Start:10-Sep-2021 Instruction Type:Provider Instructions for Treatment How to Access Health Informa tion Online using Patient Portal and [employer] Apps Indication:Type 1 diabetes mellitus maturity onset Start:10-Sep-2021 Instruction Type:Patient Education Patient Instructions Indication:[facility] Start:17-May-2021 Instruction Type:Provider Instructions for Treatment How to Access Health Informa tion Online using Patient Portal and [employer] Apps Indication:[facility] Start:17-May-2021 Instruction Type:Patient Education Patient Instructions Indication:Type 1 diabetes mellitus maturity onset Start:18-Nov-2020 Instruction Type:Provider Instructions for Treatment How to Access Health Informa tion Online using Patient Portal and [employer] Apps Indication:Type 1 diabetes mellitus maturity onset Start:18-Nov-2020 Instruction Type:Patient Education Patient Instructions Indication:Mixed hyperlipidemia Start:15-Jul-2020 Instruction Type:Provider Instructions for Treatment How to Access Health Informa tion Online using Patient Portal and [employer] Apps Indication:Mixed hyperlipidemia Start:15-Jul-2020 Instruction Type:Patient Education [...] for referral (narrative)No reason for referral information availableJer[facility] Work Phone: Family History No Family History [...] tion Online using Patient Portal and [employer] Apps Indication:Mixed hyperlipidemia Start:15-Jul-2020 Instruction Type:Patient Education [...] tion Online using Patient Portal and [employer] Apps Indication:Mixed hyperlipidemia Start:15-Jul-2020 Instruction Type:Patient Education [...] tion Online using Patient Portal and [employer] Apps Indication:Mixed hyperlipidemia Start:15-Jul-2020 Instruction Type:Patient Education [...] HEAD/BRAIN W/O CONTRAST MATERIAL Joslyn Turcios MD [address] [place] [address] Ct Imaging Referral ID Status Reason Start Date Expiration Date Visits Requested Visits Authorized [id number] Pending Review Auto-Generat ed Referral 03/14/2023 03/22/2024 [...] DATE CREATED AUTHOR AUTHOR'S ORGANIZ ATION 03/14/2023 [facility] DATE CREATED AUTHOR AUTHOR'S ORGANIZ ATION 03/24/2023 [facility] nter DATE CREATED AUTHOR AUTHOR'S ORGANIZ ATION 12/08/2024 [facility] DATE CREATED AUTHOR AUTHOR'S ORGANIZ ATION [facility] Source Comments (unrecognize d section and content) In the event this informatio n is protected by the Federal Confidentiality of Alcohol and Drug Abuse Patient Records regulations: The Federal rules restrict any use of the information to criminally investigate or prosecute any alcohol or drug abuse patient.[facility] the event this information is protected by the Federal Confidentiality of Alcohol and Drug Abuse Patient Records regulations: The Federal rules restrict any use of the information to criminally investigate or prosecute any alcohol or drug abuse patient.[facility] the event this information is protected by the Federal Confidentiality of Alcohol and Drug Abuse Patient Records regulations: The Federal rules restrict any use of the information to criminally investigate or prosecute any alcohol or drug abuse patient.[facility] the event this information is protected by the Federal Confidentiality of Alcohol and Drug Abuse Patient Records regulations: The Federal rules restrict any use of the information to criminally investigate or prosecute any alcohol or drug abuse patient.[facility] the event this information is protected by the Federal Confidentiality of Alcohol and Drug Abuse Patient Records regulations: The Federal rules restrict any use of the information to criminally investigate or prosecute any alcohol or drug abuse patient.[facility] the event this information is protected by the Federal Confidentiality of Alcohol and Drug Abuse Patient Records regulations: The Federal rules restrict any use of the information to criminally investigate or prosecute any alcohol or drug abuse patient.[facility] Reason for Visit (unrecogniz ed section and content) Reason Comments Orders Reason Comments Appointment Reason Comments 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 No previous treatment Care Teams (unrecognized sec tion and content) Rack Cleaner Relationship Specialty Start Date End Date [facility], [facility] Internal [address] [place] [id number] PCP - General 02/19/23 Rack Cleaner Relationship Specialty Start Date End Date [facility] Internal [address] [place] [id number] PCP - General 02/19/23 Rack Cleaner Relationship Specialty Start Date End Date [facility] Internal [address] [place] [id number] PCP - General 02/19/23 Rack Cleaner Relationship Specialty Start Date End Date [facility] Internal [address] [place] [id number] PCP - General 02/19/23 Team Status: Active [...] MD Attending Provider, Referring Provi kayce Active Rack Cleaner Relationship Specialty Start Date End Date [facility], [facility] [address] [place], [place] [id number] PCP - General 02/19/23 Team Status: Active [...] BE BASED ON THE PRIMARY CLINICAL RECORDS. [employer] provides no warranty or guarantee of the accuracy or completeness of information in this document.
[2025-07-09] MEDS: Lactated Ringers 1,000 ML 15 ML IV (06:48)
--- NOTE | 2025-07-09 06:56 | PRE.ANES_ITS ---
ASA Classification* ASA Classification ASA Classification: 2 Assessment & Plan Anesthesia* Anesthesia Assessment Anesthesia Assessment: Discussed sedation and/or anesthesia options, risks, benefits, and alternatives with patient/parents/legal guardian/POA. Questions invited. The patient/parents/legal guardian/POA seems to understand and agrees to proceed with anesthesia plan. Reviewed the physical assessment, medical history, allergy history and patient home medications list prior to surgery/procedure/anesthetic and documented any changes. Performed airway and anesthesia risk assessments. Anesthesia Type Anesthesia Type: MAC Anesthesia Focused Assessment* Temperature: 98.2 F Pulse Rate: 71 Blood Pressure: 146/75 Respiratory Rate: 16 Pulse Ox: 98 Airway Assessment Mouth opens: >3 cm Mallampati Score: II Labs Anesthesia Preop lab: CBC WBC, (4.4-11.0) 9.8 K/mm3 06/18/25, 15:45 RBC, (4.6-6.2) 5.14 M/mm3 06/18/25, 15:45 Hgb, (13.0-16.5) 15.8 g/dL 06/18/25, 15:45 Hct, (40-54) 45.7 % 06/18/25, 15:45 Plt Count, (150-450) 254 K/mm3 06/18/25, 15:45 CHEMISTRY Potassium, (3.3-5.1) 4.2 mmol/L 06/18/25, 15:45 Sodium, (133-145) 138 mmol/L 06/18/25, 15:45 BUN, (4-19) 11 mg/dL 06/18/25, 15:45 Creatinine, (0.70-1.20) 0.99 mg/dL 06/18/25, 15:45 Glucose, (70-99) 87 mg/dL 06/18/25, 15:45 POC Glucose, (74-106) 104 mg/dL 06/04/25, 06:32 TSH, (0.358-3.74) 2.86 uIU/mL 07/08/19, 09:25 COAG Pre-Assessment Diagnosis/Proposed Procedure Planned Operative Procedure(s): right sided carpal tunnel release Anesthesia History 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 When Was Last Pacemaker Check QUESTION #4 FULL TEXT: You/Your Family Experience fever (hyperthermia) with Anesthesia Last Oral Intake Last Oral intake: Last Oral Intake NPO since 22:00 07/09/25 06:35 Meds taken in AM with sips of water? Meds patient instructed to take am of surgery PONV PONV - musical instrument mechanic: PONV - musical instrument mechanic Female No 06/30/25 10:57 HX of Motion Sickness No 06/30/25 10:57 HX of N/V After Surgery No 06/30/25 10:57 Non-Smoker Yes 06/30/25 10:57 Duration of Surgery greater No 06/30/25 10:57 than 60 minutes Number of Risk Factors 1 06/30/25 10:57 PONV Score Low Risk 06/30/25 10:57 Height & Weight Height & Weight: Anesthesia: Height & Weight Height 5 ft 7 in 07/09/25 06:35 Weight: 92 kg 07/09/25 06:35 Body Mass Index (BMI) 31.7 07/09/25 06:35 Respiratory Assessment Respiratory Assessment - musical instrument mechanic: Respiratory Tract Infection Hx - musical instrument mechanic Hx Respiratory Tract Infection No 06/30/25 10:57 STOP Sleep Apnea STOP Sleep Apnea - musical instrument mechanic: STOP Sleep Apnea - musical instrument mechanic Hx Hypertension No 06/30/25 10:57 Hx Sleep Apnea Yes 06/30/25 10:57 CPAP Yes 06/30/25 10:57 BIPAP No 06/30/25 10:57 Do you snore loudly (louder than talking or can be heard Do you often feel tired/ fatigued/ sleepy during daytime? Has anyone observed you stop breathing during sleep? STOP Results Positive 06/30/25 10:57 QUESTION #5 FULL TEXT : Do you snore loudly (louder than talking or can be heard through closed doors)? 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 Specify any problems Hx of Preganancy in last 3 N/A 06/30/25 10:57 Months Nurse Filling Out Transfusion BRAYAN 06/30/25 10:57 & Questions: Date: 06/30/25 06/30/25 10:57 Time: 11:02 06/30/25 10:57 Patient unable to answer at this time (ie. confused, unrespo /Reproduction History /Reproductive History - musical instrument mechanic: /Reproductive Hx- musical instrument mechanic Hx Now Gestational Age (in weeks): EDC: Hx Hx Para Hx Section SAB No 05/26/25 11:21 Does the father of the baby or his family experience fever w Father of the baby Malignant Hypertension history comment Active Medications Active Medications: Current Medications Generic Name Dose Route Start Last Admin Trade Name Freq PRN Reason Stop Dose Admin Cefazolin Sodium 2 gm/ Sodium 110 mls @ 200 mls/hr 07/09/25 07:00 Chloride IV 07/09/25 07:32 INTRAOP ONE Lactated Ringer's 1,000 mls @ 15 mls/hr 07/09/25 06:15 07/09/25 06:48 IV 15 mls/hr .Q48H BRANDON Administration PFSH Medical History Wears glasses Sleep apnea Wears contact lenses Alcohol use Insulin dependent diabetes mellitus Injury of head and neck Dietary restriction Non-smoker CPAP (continuous positive airway pressure) dependence Bilateral carpal tunnel syndrome Obesity High cholesterol Home Medications ?Medication ?Instructions ?Recorded ?Last Taken ?Type cholecalciferol (vitamin D3) 125 5,000 unit PO DAILY 1 08/15/18 07/08/25 History mcg (5,000 unit) disintegrating tablet coenzyme Q10 10 mg capsule (Co 10 mg PO DAILY 11/19/20 07/08/25 History Q-10) rosuvastatin 20 mg tablet 40 mg PO QHS 04/19/24 History tirzepatide 10 mg/0.5 mL 10 mg subcut TU 05/26/25 History subcutaneous pen injector (Mounjaro) blood-glucose sensor (Dexcom G7 #9 ea 06/11/25 Unknown Rx Sensor device) insulin pump cart,auto,BT,G6/7 #30 ea 06/11/25 Unknown Rx (Omnipod 5 G6-G7 Pods (Gen 5) subcutaneous cartridge) insulin lispro 200 unit/mL (3 mL) subcut 06/30/25 Unkn own History subcutaneous pen (Humalog KwikPen U-200 Insulin) Allergy/AdvReac Type Severity Reaction Status Date / Time No Known Allergies Allergy Verified 07/09/25 06:35 Family History Other Diabetes High cholesterol Surgical History History of carpal tunnel surgery Hx of colonoscopy Social History Smoking Status: Never smoker alcohol intake: current alcohol intake frequency: a few times a month Alcohol type: beer Review of Systems (Anesthesia) ROS Narrative System reviewed and no additional complaints, except as documented.
--- NOTE | 2025-07-09 07:01 | PCM.HP.STD ---
HPI - General HPI Narrative HUEY CARRERA, is a 49 M who presents for right endoscopic carpal tunnel release. no change to h and p. rab, post op instructions given. right wrist marked. ok to proceed. no further qs or concerns. MR#: [id number] Acct: [id number] Name: HUEY CARRERA Rep #: [id number] : 1975 Provider: Dr. Troy Gibbons MD Age/Sex: 49/M Location: [facility] Status: Signed Intake Vital Signs 05/09/2508:31 06/04/2506:35 06/18/2515:58 Height 5 ft 4 in 5 ft 7 in 5 ft 7 in Weight: 192 lb BMI 30.0 Intake Visit Reasons: left wrist Chief Complaint: Left wrist 2 week post op Accompanied by: Self Is patient in pain?: No Allergies No Known Allergies Allergy (Verified 06/18/25 16:01) Medications ?Medication ?Instructions ?Recorded ?Confirmed ?Type cholecalciferol (vitamin D3) 125 5,000 unit PO DAILY 06/14/19 06/18/25 History mcg (5,000 unit) disintegrating tablet coenzyme Q10 10 mg capsule (Co 10 mg PO DAILY 11/19/20 06/18/25 History Q-10) rosuvastatin 20 mg tablet 40 mg PO QHS 04/19/24 06/18/25 History tirzepatide 10 mg/0.5 mL 10 mg subcut TU 05/26/25 06/18/25 History subcutaneous pen injector (Mounjaro) blood-glucose sensor (Dexcom G7 #9 ea 06/11/25 06/18/25 Rx Sensor device) insulin pump cart,auto,BT,G6/7 #30 ea 06/11/25 06/18/25 Rx (Omnipod 5 G6-G7 Pods (Gen 5) subcutaneous cartridge) Have you fallen in the past year?: No PFSH Medical History Wears contact lenses Alcohol use Insulin dependent diabetes mellitus Injury of head and neck Dietary restriction Non-smoker CPAP (continuous positive airway pressure) dependence Bilateral carpal tunnel syndrome Obesity High cholesterol Surgical History Hx of colonoscopy Family History Other Diabetes High cholesterol Social History Smoking Status: Never smoker alcohol intake: current alcohol intake frequency: a few times a month Alcohol type: beer HPI left wrist Details: This documentation accurately reflects the service provided and the decisions made by me, Dr. Troy Gibbons MD 06/18/25 0229. Part of today?s visit was documented by [ ], acting as scribe. HUEY CARRERA is a 49 year old M here today for 2 weeks FU L ECTR. Wants to proceed with R ECTR. Doing well the numbness in the hand is much better. No nighttime symptoms using the brace try to keep the wrist quiet is interested to proceed with right endoscopic carpal tunnel release on the other side now. Coding Level of Care Code Off vis,est,level 3 Diagnoses Bilateral carpal tunnel syndrome G56.03 Additional Codes Intake - Is patient in pain?: No (1126F) Assessment and Plan Assessment and Plan (1) Bilateral carpal tunnel syndrome: Status: Acute Plan: 49-year-old man with bilateral carpal tunnel syndrome. Doing well, sutures removed. OK to shower over and dc brace. 2 weeks FU left ECTR. FU 4-6 weeks. This is severe in nature and the patient has type diabetes obesity this are poor prognostic factors for this condition and may impact surgery with higher risk of infection and lower chance of significant improvement. Pros and cons risks benefits of open vs endoscopic discusses. Wishes to proceed with right endoscopic carpal tunnel release. Pros and cons risks and benefits were discussed with the patient including but not limited to infection, pain, stiffness, bleeding, damage to surrounding structures, neurovascular injury, recurrence or retear, failure or wear of hardware or fixation, instability, fracture, deep vein thrombosis and pulmonary embolism, anesthetic risks, , patient dissatisfaction, need for further surgery and other risks. Patient understood and wished to proceed with surgery, and signed the informed consent documentation. Carpal Tunnel Syndrome (CTS) occurs when the median nerve, which runs through the wrist, becomes compressed. Treatment options vary based on the severity of the condition: Non-Surgical Treatments: Wrist Splinting: Wearing a splint at night to keep the wrist in a neutral position. Activity Modification: Avoiding repetitive wrist movements or adjusting work habits. Physical Therapy: Exercises to improve wrist and hand function. Medications: Anti-inflammatory drugs (NSAIDs) or corticosteroid injections to reduce swelling and pain. Surgical Treatment: Carpal Tunnel Release Surgery: A procedure where the ligament pressing on the median nerve is cut to relieve pressure. This is considered when non-surgical treatments are ineffective. Options are min-open or endoscopic. Clinical Quality Measures Falls Risk Screening/Assistive Devices Have you fallen in the past year?: No Ortho Exam General General: Yes no acute distress Neurologic: Yes alert and Yes oriented x3 Psychologic: Yes reasonable and appropriate Right Wrist/Hand Skin/Wound: No Swelling and No Ecchymosis Left Wrist/Hand Skin/Wound: Yes CDI, Yes healed, No Swelling and No Ecchymosis Motor: EPL: 5, FDP-2: 5, 1st Dorsal Interosseous: 5 and APB: 5 Sensation: Radial: I, Ulnar: I and Median: I [facility] Medical History Wears glasses Sleep apnea Wears contact lenses Alcohol use Insulin dependent diabetes mellitus Injury of head and neck Dietary restriction Non-smoker CPAP (continuous positive airway pressure) dependence Bilateral carpal tunnel syndrome Obesity High cholesterol Home Medications ?Medication ?Instructions ?Recorded ?Last Taken ?Type cholecalciferol (vitamin D3) 125 5,000 unit PO DAILY 06/14/19 07/08/25 History mcg (5,000 unit) disintegrating tablet coenzyme Q10 10 mg capsule (Co 10 mg PO DAILY 11/19/20 07/08/25 History Q-10) rosuvastatin 20 mg tablet 40 mg PO QHS 04/19/24 07/08/25 History tirzepatide 10 mg/0.5 mL 10 mg subcut TU 05/26/25 06/24/25 History subcutaneous pen injector (Mounjaro) blood-glucose sensor (Dexcom G7 #9 ea 06/11/25 Unknown Rx Sensor device) insulin pump cart,auto,BT,G6/7 #30 ea 06/11/25 Unknown Rx (Omnipod 5 G6-G7 Pods (Gen 5) subcutaneous cartridge) insulin lispro 200 unit/mL (3 mL) subcut 06/30/25 Unknown History subcutaneous pen (Humalog KwikPen U-200 Insulin) Allergy/AdvReac Type Severity Reaction Status Date / Time No Known Allergies Allergy Verified 07/09/25 06:35 Family History Other Diabetes High cholesterol Surgical History History of carpal tunnel surgery Hx of colonoscopy Social History Smoking Status: Never smoker alcohol intake: current alcohol intake frequency: a few times a month Alcohol type: beer Patient's Goals Of Care . What would you like to achieve or improve as a result of your hospital stay?: na Vital Signs Vital Signs Vital Signs: 07/09/25 06:35 07/09/25 06:35 07/09/25 06:35 Temperature 98.2 F Temperature Source Temporal Pulse Rate 71 Respiratory Rate 16 Respiratory Pattern Normal Blood Pressure 146/75 H Blood Pressure Mean 98 Blood Pressure Source Monitor Blood Pressure Position Semi-Fowlers Blood Pressure Location Left Arm Baseline BP 146/75 Pulse Ox 98 Oxygen Delivery Method Room Air 07/09/25 06:57 Temperature 98.2 F Temperature Source Pulse Rate 71 Respiratory Rate 16 Respiratory Pattern Blood Pressure 146/75 H Blood Pressure Mean Blood Pressure Source Blood Pressure Position Blood Pressure Location Baseline BP Pulse Ox 98 Oxygen Delivery Method Weight Weight: 202 lb 13.204 oz Body Mass Index (BMI) 31.7
[2025-07-09] MEDS: Cefazolin 1 GM/5 ML Vial 2 GM IV (07:20)
[2025-07-09] MEDS: Midazolam 2 MG/2 ML Syringe IV (07:22)
[2025-07-09] MEDS: fentaNYL 100 MCG/2 ML Ampul IV (07:43)
--- NOTE | 2025-07-09 07:49 | OP.PCM_ITS ---
Procedures Musculoskeletal 20xxx-29xxx: Other Procedure See Report Operative Report (Standard) Operative Information Date of Procedure: 07/09/25 Pre-Operative Diagnosis: R CTS Post-Operative Diagnosis: same Surgery/Procedure Performed: R ECTR business office manager: Yes Certified Ophthalmic Technician: eleazar Tasks completed by distribution center assistant: Trocar Type of Anesthesia: Local MAC and Local RN Documented Start/Stop Times: Operation Date: 07/09/25 07:30 Case Time Into Pre-Op 07/09/25 06:09 Out of Pre-Op 07/09/25 07:19 Anesthesia Start 07/09/25 07:20 Into Room 07/09/25 07:20 Procedure Start 07/09/25 07:35 Procedure End 07/09/25 07:48 Procedure Start Time: 07:35 Procedure Stop Time: 07:48 Select all DRAINS/GRAFTS/IMPLANTS that apply: None Estimated Blood Loss: 5 Specimen collected: No Description of surgery: Patient brought to the operating room theater. Placed supine upon on the table. 2g iv ancef before the start of the case. MAC induced by the anesthetic team. Patient placed supine on the table all bony prominences padded. SCDs on the legs. Hand table used right side. Tourniquet applied properly padded to the upper extremity. Upper extremity prepped and draped in the usual sterile fashion with chlorhexidine-based prep solution allowing over 3 minutes drying time prior to draping. Preoperative timeout performed to confirm the site patient and the surgery. Began by elevating the limb and inflated the tourniquet to 250 mmHg. I used the [employer] center line endoscopic carpal tunnel kit technique. 5cc 0.25% bupivicaine for local anesthesia. I made a transverse 2 cm incision in line with the? transverse wrist crease.? This was in line with the fourth digit.? I carried the dissection down through skin and subcutaneous tissue achieved meticulous hemostasis. Just ulnar to palmaris tendon.? I incised the antebrachial fascia, in a U shape.? I passed sequential dilators into the carpal tunnel along the radial border of the Guyon's canal aiming for the fourth digit with the wrist in extension.? I used a synovial elevator to identify the transverse fibers of the transverse carpal tunnel ligament.? Passed the scope into the carpal tunnel. Once I had identified the full proximal and distal extent of the ligament I fully released the ligament under direct visualization by deploying the blade and slowly withdrawing the scope made sequential passes until I no longer felt tension as well as the entire extent of the ligament was released under direct visualization.? Sounded the tunnel with ignacio tenotomy scissors, complete release, no bands. Nerve visualized and protected. Arthroscope light was more visible through the skin. More room for the large dilator. Release the forearm fascia also proximal. Pictures taken and saved. Wounds thoroughly irrigated.? Tourniquet let down prior to end of the case and meticulous hemostasis achieved.? Thorough irrigation.? ? Incisions closed with 3-0 ethilon, horizontal mattress. ?Then adaptic 4x4 gauze and tape. Patient woken up,? transferred off the operating room table and taken to postanesthetic care unit in stable condition. All sponge needle instrument counts were correct no complications.?Plan for the patient to be discharged home according to day surgery criteria when they are comfortable. Follow-up in the office in 2 days time. Gentle ROM finger and elbow no heavy lifting. Recommend wrist brace 2 weeks. cpt 40279 Surgical Findings: as above Complications Complications: No Admit VTE Documentation VTE Present on Admission: No VTE Mechan Device Prophylaxis: SCD's VTE Pharm Prophylaxis ordered?: No Reason prophylaxis not ordered: Treatment Not Indicated
--- NOTE | 2025-07-09 07:51 | EX.PCM.DISCH ---
Discharge Instructions Diet Discharge Diet: No restrictions Activity Discharge Activity: Return to Normal Activity Lifting Restrictions: no repetitive heavy lifting or gripping 6 weeks Keep extremity elevated above heart level: Operative Extremity Additional Activity Instructions:: wear brace 2 weeks Dressing / Incision Call your doctor if your incision/area has: Continuous Slow Oozing, Sudden Increased Bleeding, Increased Pain/ Swelling, Increased Redness, Foul Smelling Discharge and Swelling at the incision site Call your doctor if you observe: Fever of 101 or Higher, Coldness, Increased Pain and Numbness or Tingling Change Dressing in: 2 days Cleanse incision/area with: Do not get Incision Wet Follow Up Care Please Follow Up With: Troy Gibbons MD When: within 2 weeks Test Results: Test results from this visit will be discussed in further detail at your follow-up appointment, if applicable. Discharge Plan Admission Attending Provider: Troy Gibbons Primary Care Provider: Tawanna Pickard Instructions Patient Instructions: Carpal Tunnel Release Surgery Print Language: Occitan Discharge Orders/Prescriptions Prescriptions: No Action cholecalciferol (vitamin D3) 5,000 unit tablet,disintegrating 5,000 unit PO DAILY coenzyme Q10 [Co Q-10] 10 mg capsule 10 mg PO DAILY rosuvastatin 20 mg tablet 40 mg PO QHS Humalog KwikPen Insulin 200 unit/mL (3 mL) insulin pen subcut Mounjaro 10 mg/0.5 mL pen injector 10 mg subcut TU (DME) Omnipod 5 G6-G7 Pods (Gen 5) Cartridge See Rx Instructions .Route Qty: 30 1RF Rx Instructions: change every 3 days (DME) Dexcom G7 Sensor Device See Rx Instructions .Route Qty: 9 1RF Rx Instructions: 1 sensor q 10 days Referrals / Follow Up: Tawanna Pickard DO [Primary Care Provider, Internal Medicine] Troy Gibbons MD [Med Staff - Active Staff, Orthopedics] Disposition Disposition (needs filled in before D/C Order can be placed): Home, Self Care
--- NOTE | 2025-07-09 07:56 | PCM.POST.ANE ---
Anesthesia: Postop Eval I Current Vital Signs Temperature: 98 F Pulse Rate: 82 Blood Pressure: 118/77 Respiratory Rate: 16 Pulse Ox: 96 Oxygen Delivery Method: Room Air Assessment Airway patent: Yes Spontaneous unlabored respirations: Yes Mental status: Awake and Calm nausea: No Vomiting: No Anesthesia Complication: No Fluid Hydration Crystalloid volume administer (ml): 300 Total IV fluid infused: 300 Progress Note Anesthesia document: Postop Eval 1 completed: Yes
--- NOTE | 2025-07-09 08:21 | POSTOPAN2_ITS ---
Anesthesia Postop Eval I Sum Postop Eval Completion status Anesthesia document: Postop Eval 1 completed: Yes Anesthesia Postop Eval I Summary Anesthesia Postop Eval I Summary: Anesthesia Postop Eval I: Assessment Summary Airway patent Yes 07/09/25 07:57 LAMP [email or web address].[email or web address] Spontaneous unlabored Yes 07/09/25 07:57 LAMP [email or web address].[email or web address] respirations Mental status Awake,Calm 07/09/25 07:57 LAMP [email or web address].GDOTT nausea No 07/09/25 07:57 LAMP CLEANER.GDOTT Vomiting No 07/09/25 07:57 LAMP [email or web address].GDOTT Anesthesia Postop Eval I: Fluid Summary Crystalloid volume administer 300 07/09/25 07:57 LAMP CLEANER.GDOTT (ml) Colloids volume administered ( ml) Blood Product volume administered (ml) Total IV fluid infused 300 07/09/25 07:57 LAMP CLEANER.GDOTT Anesthesia Postop Eval I: Summary Notes Anesthesia Complication No 07/09/25 07:57 LAMP [email or web address].GDOTT Anesthesia Complication Comment: Post-operative progress note Anesthesia: Postop Eval II Evaluation Mental status: Awake Pain Level: 0 nausea: No Vomiting: No
--- NOTE | 2025-07-09 08:21 | PCM.POSTANE2 ---
Anesthesia Postop Eval I Sum Postop Eval Completion status Anesthesia document: Postop Eval 1 completed: Yes Anesthesia Postop Eval I Summary Anesthesia Postop Eval I Summary: Anesthesia Postop Eval I: Assessment Summary Airway patent Yes 07/09/25 07:57 CLINICAL BUSINESS ANALYST.GDOTT Spontaneous unlabored Yes 07/09/25 07:57 CLINICAL BUSINESS ANALYST.GDOTT respirations Mental status Awake,Calm 07/09/25 07:57 CLINICAL BUSINESS ANALYST.GDOTT nausea No 07/09/25 07:57 CLINICAL BUSINESS ANALYST.GDOTT Vomiting No 07/09/25 07:57 CLINICAL BUSINESS ANALYST.GDOTT Anesthesia Postop Eval I: Fluid Summary Crystalloid volume administer 300 07/09/25 07:57 CLINICAL BUSINESS ANALYST.GDOTT (ml) Colloids volume administered ( ml) Blood Product volume administered (ml) Total IV fluid infused 300 07/09/25 07:57 CLINICAL BUSINESS ANALYST.GDOTT Anesthesia Postop Eval I: Summary Notes Anesthesia Complication No 07/09/25 07:57 CLINICAL BUSINESS ANALYST.GDOTT Anesthesia Complication Comment: Post-operative progress note Anesthesia: Postop Eval II Evaluation Mental status: Awake Pain Level: 0 nausea: No Vomiting: No
== END 2025-07-09 09:01 | disposition home or self-care (01) ==
LOC: SDC 06:05 → AC 06:05
PROVIDERS: PCP Internal Medicine; Referring Provider Orthopaedic Surgery Sports Medicine; Visit Provider Orthopaedic Surgery Sports Medicine
PROC: (CPT 29848; principal; 2025-07-09 07:15)
DX: G56.01 Carpal tunnel syndrome, right upper limb (principal); E11.9 Type 2 diabetes mellitus without complications; Z96.41 Presence of insulin pump (external) (internal); E78.00 Pure hypercholesterolemia, unspecified; Z79.85 Long-term (current) use of injectable non-insulin antidiabetic drugs; Z79.899 Other long term (current) drug therapy
CPT/HCPCS: 29848; 01830; 82962; J2405